=== PATIENT | female | born 1935 | race Caucasian/White ===

== ENCOUNTER 2017-04-01 13:42 | Inpatient (IN) | payer OTHER ==
--- NOTE | 2017-04-01 14:16 | PDOC ---
Attending Attestation - Resident Resident Name: Luis Wall - ED Attending Attestation I have performed the following: I have examined & evaluated the patient, The case was reviewed & discussed with the resident, I agree w/resident's findings & plan, Exceptions are as noted - HPI HPI: 04/01/17 14:15 Frequent Falls - Physicial Exam PE: 04/01/17 14:15 VSS NAD Non Toxic - Medical Decision Making 04/01/17 14:[address] Wall's Assessment and Plan
--- NOTE | 2017-04-01 14:28 | PDOC ---
History of Present Illness - General Chief Complaint: Injury Stated Complaint: PCP SENT FOR ADMIN Time Seen by Provider: 04/01/17 14:09 - History of Present Illness Initial Comments: 82 year old female with PMH of hypothyroidism, smoking disorder, and CHF (s/p stent 2 years prior for suspected [place]) presenting with repeat falls, and altered mental status over the past few months. Patient is not an excellent historian so her son at bedside was complementing the interview. According to him she has fallen 5 times in the last 3-4 months despite her use of a walker. She hit her head two weeks prior during one of the falls but did not seek attention. She did not lose consciousness during that fall. She describes the falls as "my legs giving out" which is corroborated by her son who witnessed one of the events. The son claims that she also has had difficulty keep track of time and with short term memory. Her memory issues are worsened at night. She lives at home alone and has had trouble with her ADLs. She is not on blood thinners. She has also had decreased food intake over the past few months although she has only lost a few pounds. She was seen by her PCP Dr. Mitchell earlier today and then sent to the ED for admission for altered mental status. Denies fevers, chills, nausea, vomiting, diarrhea, constipation, urinary symptoms, visual changes, headaches, presyncopal sensation, or palpitations. Her PCP is Dr. Mitchell. 04/01/17 14:28 Past History - Past Medical History Allergies/Adverse Reactions: Allergies Allergy/AdvReac Type Severity Reaction Status Date / Time pineapple [Pineapple] Allergy Severe Swelling Verified 04/01/17 13:45 adhesive tape Allergy Mild Rash Verified 04/01/17 13:45 Home Medications: Ambulatory Orders Aspirin Coated [Ecotrin -] 81 mg PO DAILY #30 tablet.ec 01/03/14 Carvedilol [Coreg -] 3.125 mg PO BID #60 tablet 01/03/14 Furosemide [Lasix -] 40 mg PO DAILY #30 tablet 01/03/14 Levofloxacin [Levaquin -] 250 mg PO DAILY #3 tablet 01/03/14 Levothyroxine [Synthroid -] 100 mcg PO DAILY@0700 #30 tablet 01/03/14 Lisinopril [Prinivil] 2.5 mg PO DAILY #30 tablet 01/03/14 Anemia: No Asthma: Yes Cancer: No Cardiac Disorders: Yes COPD: Yes CHF: Yes Diabetes: Yes Disorders: No HTN: Yes Hypercholesterolemia: Yes Liver Disease: No Suicide Attempt (Hx): No Thyroid Disease: Yes (hypothyroid) - Surgical History Abdominal Surgery: Yes Appendectomy: Yes Cholecystectomy: Yes Neurologic Surgery: Yes (HERNIATED DISC) - Psycho/Social/Smoking Cessation Hx Anxiety: No Suicidal Ideation: No Smoking Status: Yes Smoking History: Former smoker Have you smoked in the past 12 months: Yes Number of Cigarettes Smoked Daily: 20 If you are a former smoker, when did you quit?: 01/2017 Information on smoking cessation initiated: No 'Breaking Loose' booklet given: 12/10/11 Hx Alcohol Use: No Drug/Substance Use Hx: No Substance Use Type: None Hx Substance Use Treatment: No Review of Systems - Review of Systems Constitutional: No: Chills, Diaphoresis, Fever HEENTM: No: Blurred Vision, Tearing, Recent change in vision Respiratory: No: Cough, Shortness of Breath Cardiac (ROS): No: Chest Pain, Edema, Palpitations, Syncope ABD/GI: No: Constipated, Diarrhea, Nausea, Vomiting : No: Burning, Dysuria, Discharge Integumentary: Yes: Lesions. No: Bruising Neurological: Yes: Unsteady Gait. No: Headache, Numbness, Paresthesia *Physical Exam - Vital Signs Last Vital Signs Temp Pulse Resp BP Pulse Ox 97.6 F 81 18 145/70 98 04/01/17 13:45 04/01/17 13:45 04/01/17 13:45 04/01/17 13:45 04/01/17 13:45 - Physical Exam General Appearance: Yes: Appropriately Dressed, Thin. No: Apparent Distress HEENT: positive: EOMI, BETO, Normal ENT Inspection, Normal Voice Neck: positive: Trachea midline, Normal Thyroid. negative: Tender Respiratory/Chest: positive: Lungs Clear, Normal Breath Sounds. negative: Chest Tender, Respiratory Distress, Accessory Muscle Use Cardiovascular: positive: Regular Rhythm, Regular Rate, S1, S2. negative: Edema , JVD, Murmur Gastrointestinal/Abdominal: positive: Normal Bowel Sounds, Flat, Soft. negative : Tender Extremity: positive: Normal Range of Motion Integumentary: positive: Normal Color, Dry, Warm Neurologic: positive: Alert, Normal Mood/Affect, Other (Steady gait but slow with assistance of walker.). negative: Fully Oriented, Motor Strength 5/5 (No focal deficits but generally weak 3/5 muscle strength.) ED Treatment Course - LABORATORY CBC & Chemistry Diagram: 04/01/17 14:56 04/01/17 14:56 Medical Decision Making - Medical Decision Making 82 year old female with PMH of [place] s/p stent placement on ASA presenting with falls and and increasing memory loss and confusion over the past few months. She was sent here by Dr. Mitchell for an admission and further workup of her falls. This is most likely vascular dementia vs. UTI vs. PNA. More likely a vascualr dementia given the chronicity of the mental status changes. Will order basic labs, head CT, CXR, and UA. 04/01/17 15:38 Ct head showing microvascular changes but per Dr. Salter, patient needs further neurology workup as well as macrocytic pancytopenia with new moderate thrombocytopenia. UA pending. CMP WNL. Admitted to Dr. Vitale per admiting team @ 18:37. 04/01/17 18:34 04/01/17 18:37 *DC/Admit/Observation/Transfer Diagnosis at time of Disposition: Altered mental status, Pancytopenia - Discharge Dispostion Condition at time of disposition: Stable Admit: Yes
[2017-04-01 15:04] LABS: BASOPHIL 0.2 % (0-2.0); EOSINOPHIL 3.1 % (0-4.5); MCH 37.8 pg (25.7-33.7); MCHC 36.8 g/dl (32.0-36.0); MEAN CELL VOLUME 102.8 fl (80-96); MEAN PLT VOLUME 7.1 fl (7.5-11.1); NEUTROPHILS 31.3 % (42.8-82.8); PLATELET COUNT 109 K/MM3 (134-434); RDW 14.9 % (11.6-15.6); WHITE BLOOD COUNT 2.6 K/mm3 (4.0-10.0)
[2017-04-01 15:24] LABS: INR 1.05 (0.82-1.09); PROTHROMBIN TIME (PATIENT) 11.6 SEC (9.98-11.88)
[2017-04-01 15:32] LABS: ALBUMIN 3.6 g/dl (3.4-5.0); ANION GAP 7 (8-16); CALCIUM 9.2 mg/dL (8.5-10.1); CO2 28 mmol/L (21-32); CREATININE 1.2 mg/dL (0.55-1.02); GLUCOSE,RANDOM 95 mg/dL (74-106); MAGNESIUM 2.1 mg/dL (1.8-2.4); PHOSPHOROUS 3.4 mg/dL (2.5-4.9); SGOT/AST 13 U/L (15-37); SGPT/ALT 15 U/L (12-78)
[2017-04-01 15:34] LABS: ALK PHOS 70 U/L (45-117); BILIRUBIN,TOTAL 0.5 mg/dL (0.2-1.0); TOT PROT 6.6 g/dl (6.4-8.2)
[2017-04-01 16:15] LABS: THYROID STIMULATING HORMONE 0.16 uIU/ml (0.358-3.74)
[2017-04-01 18:41] LABS: URINE APPEARANCE SLCLOUDY; URINE BILIRUBIN NEGATIVE (NEGATIVE); URINE BLOOD NEGATIVE (NEGATIVE); URINE COLOR LTYELLOW; URINE GLUCOSE (UA) NEGATIVE (NEGATIVE); URINE KETONE NEGATIVE (NEGATIVE); URINE LEUK ESTERASE TRACE (NEGATIVE); URINE NITRITE NEGATIVE (NEGATIVE); URINE PROTEIN NEGATIVE (NEGATIVE); URINE UROBILINOGEN NEGATIVE mg/dL (0.2-1.0)
[2017-04-01 18:48] LABS: URINE MUCUS RARE; URINE RBC 1 /hpf (0-3); URINE WBC 32 /hpf (3-5)
--- NOTE | 2017-04-01 19:16 | HP ---
CHIEF COMPLAINT: AMS, frequent falls PCP: Dr. Mitchell HISTORY OF PRESENT ILLNESS: 82 y/o F w/PMH of hypothyroidism, HTN, CAD (s/p stent placement 2 years ago), former smoker (quit 2 mo ago) presented to the ER from PCP's office for AMS and frequent falls. Pt is a poor historian. History obtained from son at bedside Pt has had 4-5 falls over the last 2-3 months with last fall being this past Wednesday (5 days ago). Pt states it feels as though her legs become weak and she just falls and denies any LOC. Son witnessed last fall and states it looked like her legs gave away and she fell. She hit her head 2 weeks ago on a fall but did not seek medical attention. Pt has some pain at R knee currently from latest fall. According to son the pt was at her baseline 6 months ago and feels as though she has been declining over the last 6 months which began with visual hallucinations. At her baseline pt is AAOX2 as per son and currently pt is AAOx1 (oriented to self). Pt is incontinent and uses diaper to urinate which is changed once in the morning and once at night. Son manages her medications and gives them to her as prescribed. Pt denies any CP, palpitations, light- headedness or dizziness before any of the falls, cough, SOB, abd pain, diarrhea , dysuria, fevers, chills, N/V, leg swelling, sick contacts, visual changes. Pt has poor appetite at baseline. Pt has lost 3 pounds over last 3 months according to son. Pt uses a walker to ambulate at baseline. ER course was notable for: (1) Head CT, CXR, UA (2) (3) PAST MEDICAL HISTORY:hypothyroidism, HTN, CHF, CAD (s/p stent placement 2 years ago) Social History: Smoking: smoked 1 ppd for approximately 65 years. Family History: not known Allergies pineapple [Pineapple] Allergy (Severe, Verified 04/01/17 13:45) Swelling adhesive tape Allergy (Mild, Verified 04/01/17 13:45) Rash HOME MEDICATIONS: Home Medications Medication Instructions Recorded Aspirin Coated [Ecotrin -] 81 mg PO DAILY #30 tablet.ec 01/03/14 Carvedilol [Coreg -] 3.125 mg PO BID #60 tablet 01/03/14 Furosemide [Lasix -] 40 mg PO DAILY #30 tablet 01/03/14 Levofloxacin [Levaquin -] 250 mg PO DAILY #3 tablet 01/03/14 Levothyroxine [Synthroid -] 100 mcg PO DAILY@0700 #30 tablet 01/03/14 Lisinopril [Prinivil] 2.5 mg PO DAILY #30 tablet 01/03/14 REVIEW OF SYSTEMS CONSTITUTIONAL: Absent: fever, chills HEENT: Absent: rhinorrhea, visual changes CARDIOVASCULAR: Absent: chest pain, syncope, palpitations, irregular heart rate, lightheadedness , peripheral edema RESPIRATORY: Absent: cough, shortness of breath GASTROINTESTINAL: Absent: abdominal pain, abdominal distension, nausea, vomiting, diarrhea GENITOURINARY: Absent: dysuria, frequency MUSCULOSKELETAL: +R knee pain NEUROLOGIC: +AMS, frequent falls Absent: headache, dizziness Vital Signs Temperature 97.6 F 04/01/17 13:45 Pulse Rate 81 04/01/17 13:45 Respiratory Rate 18 04/01/17 13:45 Blood Pressure 145/70 04/01/17 13:45 O2 Sat by Pulse Oximetry (%) 98 04/01/17 13:45 PHYSICAL EXAMINATION GENERAL: Awake, alert, and oriented to self only. HEAD: No tenderness to palpation. EYES: extraocular movements intact EARS, NOSE, THROAT: Ears normal, nares patent, oropharynx clear without exudates. Moist mucous membranes. NECK: Normal range of motion, supple without lymphadenopathy LUNGS: Breath sounds equal, clear to auscultation bilaterally. No wheezes, and no crackles. No accessory muscle use. HEART: Regular rate and rhythm, normal S1 and S2 without murmur, rub or gallop. ABDOMEN: Soft, nontender, not distended, normoactive bowel sounds, no guarding, no rebound, no masses. MUSCULOSKELETAL: No CVA tenderness. 4/5 B/L UE and LE strength. LOWER EXTREMITIES: warm, well-perfused. No calf tenderness. No peripheral edema. NEUROLOGICAL: Normal speech. Gait not observed. PSYCHIATRIC: Appropriate mood and affect. SKIN: Warm, dry CBCD WBC 2.6 K/mm3 (4.0-10.0) L D 04/01/17 14:56 RBC 2.43 M/mm3 (3.60-5.2) L D 04/01/17 14:56 Hgb 9.2 GM/dL (10.7-15.3) L D 04/01/17 14:56 Hct 25.0 % (32.4-45.2) L D 04/01/17 14:56 MCV 102.8 fl (80-96) H 04/01/17 14:56 MCHC 36.8 g/dl (32.0-36.0) H 04/01/17 14:56 RDW 14.9 % (11.6-15.6) 04/01/17 14:56 Plt Count 109 K/MM3 (134-434) L D 04/01/17 14:56 MPV 7.1 fl (7.5-11.1) L D 04/01/17 14:56 CMP Sodium 140 mmol/L (136-145) 04/01/17 14:56 Potassium 4.1 mmol/L (3.5-5.1) 04/01/17 14:56 Chloride 105 mmol/L (98-107) 04/01/17 14:56 Carbon Dioxide 28 mmol/L (21-32) 04/01/17 14:56 Anion Gap 7 (8-16) L 04/01/17 14:56 BUN 30 mg/dL (7-18) H 04/01/17 14:56 Creatinine 1.2 mg/dL (0.55-1.02) H 04/01/17 14:56 Creat Clearance w eGFR 43.23 (>60) 04/01/17 14:56 Random Glucose 95 mg/dL (74-106) 04/01/17 14:56 Calcium 9.2 mg/dL (8.5-10.1) 04/01/17 14:56 Total Bilirubin 0.5 mg/dL (0.2-1.0) D 04/01/17 14:56 AST 13 U/L (15-37) L 04/01/17 14:56 ALT 15 U/L (12-78) 04/01/17 14:56 Alkaline Phosphatase 70 U/L (45-117) D 04/01/17 14:56 Total Protein 6.6 g/dl (6.4-8.2) 04/01/17 14:56 Albumin 3.6 g/dl (3.4-5.0) 04/01/17 14:56 Laboratory Tests 04/01/17 14:56 TSH 0.16 L Urine Test Results Urine Color Ltyellow 04/01/17 18:15 Urine Appearance Slcloudy 04/01/17 18:15 Urine pH 5.0 (5.0-8.0) 04/01/17 18:15 Urine Protein Negative (NEGATIVE) 04/01/17 18:15 Urine Glucose (UA) Negative (NEGATIVE) 04/01/17 18:15 Urine Ketones Negative (NEGATIVE) 04/01/17 18:15 Urine Blood Negative (NEGATIVE) 04/01/17 18:15 Urine Nitrite Negative (NEGATIVE) 04/01/17 18:15 Urine Bilirubin Negative (NEGATIVE) 04/01/17 18:15 Ur Leukocyte Esterase Trace (NEGATIVE) 04/01/17 18:15 Urine RBC 1 /hpf (0-3) 04/01/17 18:15 Urine WBC 32 /hpf (3-5) 04/01/17 18:15 Ur Epithelial Cells Rare /hpf (FEW) 04/01/17 18:15 Urine Mucus Rare 04/01/17 18:15 Imaging: Head CT: Impression: Ventricular dilatation is noted as discussed above probably due to central atrophy and less likely on the basis of normal pressure hydrocephalus. Correlate clinically. Mild periventricular white matter hypodensity is seen probably due to mild microvascular ischemic gliosis and less likely interstitial edema due to obstructive ventricular dilatation. CXR: pending official read. Active Medications Aspirin (Ecotrin -) 81 mg PO DAILY [facility] Carvedilol (Coreg -) 3.125 mg PO BID [facility] Furosemide (Lasix -) 40 mg PO DAILY [facility] Levothyroxine Sodium (Synthroid -) 100 mcg PO DAILY@0700 [facility] Lisinopril (Prinivil) 2.5 mg PO DAILY [facility] ASSESSMENT/PLAN: 82 y/o F w/PMH of hypothyroidism, HTN, CAD (s/p stent placement 2 years ago), former smoker (quit 2 mo ago) presents to ER from PCP's office with frequent falls and AMS. -AMS and frequent falls secondary to vascular dementia vs UTI -UA with 32 wbc, trace LE, vitals wnl, no dysuria or frequency -f/u UCx, UCx in past with strep viridans -will start on ceftriaxone 1 g iv qd -pt incontinent with infrequent diaper changes -Neuro consulted -may need MRI brain -Pancytopenia -WBC 2.6, Hgb 9.2, Plts: 109 -Will monitor -check folate, b12 -Hypothyroidism -TSH low at 0.16 -check free t3, t4 -continued home synthroid at 100mcg qd -may need titrating, f/u free t3, free t4 -CAD -c/w ASA 81 mg po qd -CHF -c/w carvedilol 3.125 mg po bid, lasix 40 mg po qd, lisinopril 2.5 mg po qd -HTN -c/w lisinopril 2.5 mg po qd, carvedilol 3.125 mg po bid -DVT ppx -SCDs, consider heparin if necessary -FEN -No fluids at this time -monitor lytes -Regular diet -Dispo: -Will need PT eval -need placement discussion with son s/p hospitalization -Admit to m/s Visit type - Emergency Visit Emergency Visit: Yes ED Registration Date: 04/01/17 Care time: The patient presented to the Emergency Department on the above date and was hospitalized for further evaluation of their emergent condition. - New Patient This patient is new to me today: Yes Date on this admission: 04/01/17 - Critical Care Critical Care patient: No
--- NOTE | 2017-04-01 21:16 | PN ---
Teaching Attending Note Name of Resident: Fidel Carter ATTENDING PHYSICIAN STATEMENT I saw and evaluated the patient. I reviewed the resident's note and discussed the case with the resident. I agree with the resident's findings and plan as documented. SUBJECTIVE: 82 year old female with history of dementia brought by son due to increasing frequency of falls and declining cognitive status. Last fell 5 days ago . No LOC. C/o right knee pain at that time. Very poor historian. Poor appetite. PMH Hypothyroidism HTN CAD Dementia Past Sx Hx cardiac cath Social Hx good social support lives with son ambulates with walker former smoker 30p/y Home Medication List Medication Instructions Recorded Confirmed Type Atorvastatin Ca [Lipitor] 10 mg PO HS 04/01/17 04/01/17 History Clopidogrel Bisulfate [Plavix -] 75 mg PO DAILY 04/01/17 04/01/17 History Folic Acid 1 mg PO DAILY 04/01/17 04/01/17 History Active Medications Generic Name Dose Route Start Last Admin Trade Name Freq PRN Reason Stop Dose Admin Aspirin 81 mg 04/02/17 10:00 Ecotrin - PO DAILY [facility] Carvedilol 3.125 mg 04/01/17 22:00 Coreg - PO BID [facility] Furosemide 40 mg 04/02/17 10:00 Lasix - PO DAILY [facility] Ceftriaxone Sodium 1 gm/ 50 mls @ 100 mls/hr 04/01/17 20:00 Dextrose IVPB DAILY [facility] Levothyroxine Sodium 100 mcg 04/02/17 07:00 Synthroid - PO DAILY@0700 [facility] Lisinopril 2.5 mg 04/02/17 10:00 Prinivil PO DAILY JOC[facility]NE OBJECTIVE: Vital Signs Temperature 98.1 F 04/01/17 19:45 Pulse Rate 70 04/01/17 19:45 Respiratory Rate 18 04/01/17 19:45 Blood Pressure 138/72 04/01/17 19:45 O2 Sat by Pulse Oximetry (%) 99 04/01/17 19:45 EYES: extraocular movements intact EARS, NOSE, THROAT: Ears normal, nares patent, oropharynx clear without exudates. Moist mucous membranes. NECK: Normal range of motion, supple without lymphadenopathy LUNGS: Breath sounds equal, clear to auscultation bilaterally. No wheezes, and no crackles. No accessory muscle use. HEART: Regular rate and rhythm, normal S1 and S2 without murmur, rub or gallop. ABDOMEN: Soft, nontender, not distended, normoactive bowel sounds, no guarding, no rebound, no masses. MUSCULOSKELETAL: No CVA tenderness. 4/5 B/L UE and LE strength. LOWER EXTREMITIES: warm, well-perfused. No calf tenderness. No peripheral edema. NEUROLOGICAL: Normal speech. Gait not observed. CBC, BMP 04/01/17 14:56 04/01/17 14:[address]: Impression: Ventricular dilatation is noted as discussed above probably due to central atrophy and less likely on the basis of normal pressure hydrocephalus. Correlate clinically. Mild periventricular white matter hypodensity is seen probably due to mild microvascular ischemic gliosis and less likely interstitial edema due to obstructive ventricular dilatation. ASSESSMENT 1. 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 Advanced dementia - worsening 3. Anemia/pancytopenia - macrocytic - worsening, likely b12/folate deff ,overt bleeding can not be excluded 4. HTN - stable 5. CAD - stable , no chest pain 6. Asymptomatic bacteriuria and history of ua incontinence AND PLAN: 1. Neurology evaluation 2. PT / OT 3. Occult blood stool, monitor CBC, B12 level 4. Repeat UA Observation
[2017-04-01] MEDS ORDERED: DEXTROSE 5%-WATER - 50 ML IVPB ONE (22:39)
[2017-04-01] MEDS ORDERED: cefTRIAXone SODIUM 1 GM VIAL ONE (22:39)
[2017-04-01] MEDS: CEFTRIAXONE 1 GM in DEXTROSE 5%-WATER - 50 ML IVPB SCH (22:47)
[2017-04-01] MEDS: CARVEDILOL 3.125 MG TABLET (FP) PO SCH (22:48)
[2017-04-02] MEDS ORDERED: LEVOTHYROXINE NA 100 MCG TABLET (FP) PO SCH (07:00)
[2017-04-02 07:21] LABS: BASOPHIL 0.3 % (0-2.0); MCH 36.4 pg (25.7-33.7); MCHC 35.6 g/dl (32.0-36.0); MEAN CELL VOLUME 102.3 fl (80-96); MEAN PLT VOLUME 7.1 fl (7.5-11.1); NEUTROPHILS 34.1 % (42.8-82.8); PLATELET COUNT 107 K/MM3 (134-434); RDW 14.8 % (11.6-15.6); WHITE BLOOD COUNT 2.2 K/mm3 (4.0-10.0)
[2017-04-02 07:58] LABS: ALBUMIN 3.7 g/dl (3.4-5.0); ALK PHOS 76 U/L (45-117); ANION GAP 8 (8-16); BILIRUBIN,TOTAL 0.7 mg/dL (0.2-1.0); CALCIUM 8.9 mg/dL (8.5-10.1); CO2 27 mmol/L (21-32); CREATININE 1.2 mg/dL (0.55-1.02); GLUCOSE,RANDOM 95 mg/dL (74-106); SGOT/AST 15 U/L (15-37); SGPT/ALT 16 U/L (12-78); TOT PROT 6.8 g/dl (6.4-8.2)
--- NOTE | 2017-04-02 09:02 | EKG ---
Test Reason : Blood Pressure : / mmHG Vent. Rate : 065 BPM Atrial Rate : 065 BPM P-R Int : 146 ms QRS Dur : 080 ms QT Int : 408 ms P-R-T Axes : 059 034 049 degrees QTc Int : 424 ms NORMAL SINUS RHYTHM CANNOT RULE OUT SEPTAL INFARCT , AGE UNDETERMINED NONSPECIFIC ST ABNORMALITY Confirmed by MEENAKSHI MYESR MD ([id number]) on 04/02/2017 9:01:41 AM Referred By: Confirmed By:MEENAKSHI MYERS MD
[2017-04-02] MEDS ORDERED: cefTRIAXone SODIUM 1 GM VIAL ONE (09:16)
[2017-04-02] MEDS ORDERED: DEXTROSE 5%-WATER - 50 ML IVPB ONE (09:16)
[2017-04-02 09:19] LABS: FREE T4 1.68 ng/dl (0.76-1.46)
[2017-04-02] MEDS: ASPIRIN COATED 81 MG TABLET.EC PO SCH (10:17)
[2017-04-02] MEDS: LISINOPRIL 5 MG TABLET (FP) PO SCH (10:17)
[2017-04-02] MEDS: FUROSEMIDE 40 MG TABLET (FP) PO SCH (10:17)
[2017-04-02] MEDS: CARVEDILOL 3.125 MG TABLET (FP) PO SCH ×2 (10:17→22:50)
[2017-04-02] MEDS: CEFTRIAXONE 1 GM in DEXTROSE 5%-WATER - 50 ML IVPB SCH (10:18)
[2017-04-02] MEDS: HEPARIN NA (PORCINE) 5,000 UNITS/ML 1ML VIAL SQ SCH ×2 (14:07→22:53)
--- NOTE | 2017-04-02 14:38 | PN ---
Progress Note, Physician Chief Complaint: Unable to obtain secondary to dementia - Current Medication List Current Medications: Active Medications Aspirin (Ecotrin -) 81 mg PO DAILY [facility] Last Admin: 04/02/17 10:17 Dose: 81 mg Carvedilol (Coreg -) 3.125 mg PO BID [facility] Last Admin: 04/02/17 10:17 Dose: 3.125 mg Furosemide (Lasix -) 40 mg PO DAILY [facility] Last Admin: 04/02/17 10:17 Dose: 40 mg Heparin Sodium (Porcine) (Heparin -) 5,000 unit SQ TID [facility] Last Admin: 04/02/17 14:07 Dose: 5,000 unit Ceftriaxone Sodium 1 gm/ (Dextrose) 50 mls @ 100 mls/hr IVPB DAILY [facility] Last Admin: 04/02/17 10:18 Dose: 100 mls/hr Sodium Chloride (Normal Saline -) 1,000 mls @ 50 mls/hr IV ASDIR [facility] Stop: 04/03/17 14:31 Levothyroxine Sodium (Synthroid -) 100 mcg PO DAILY@0700 [facility] Last Admin: 04/02/17 06:50 Dose: 100 mcg Lisinopril (Prinivil) 2.5 mg PO DAILY [facility] Last Admin: 04/02/17 10:17 Dose: 2.5 mg - Objective Vital Signs: Vital Signs Temperature 37.4 C 04/02/17 10:00 Pulse Rate 95 H 04/02/17 10:00 Respiratory Rate 20 04/02/17 10:00 Blood Pressure 163/90 04/02/17 10:00 O2 Sat by Pulse Oximetry (%) 99 04/01/17 22:00 Constitutional: Yes: No Distress, Calm, Thin Cardiovascular: Yes: Regular Rate and Rhythm. No: Gallop, Murmur, Rub Respiratory: Yes: Regular, CTA Bilaterally. No: Rales, Rhonchi, Wheezes Gastrointestinal: Yes: Normal Bowel Sounds, Soft. No: Distention, Tenderness Extremities: Yes: WNL Edema: No Labs: CBC, BMP 04/02/17 06:15 04/02/17 06:15 INR, PTT INR 1.05 (0.82-1.09) 04/01/17 14:56 Problem List - Problems (1) UTI (urinary tract infection) Assessment/Plan: -follow up urine cultures -continue rocephin 1gm IV daily Code(s): N39.0 - URINARY TRACT INFECTION, SITE NOT SPECIFIED (2) Dementia Assessment/Plan: -per history appears to be worsening -neurology consulted and will follow up recommendations -continue treatment for UTI, unsure of baseline -PT consult Code(s): F03.90 - UNSPECIFIED DEMENTIA WITHOUT BEHAVIORAL DISTURBANCE (3) Pancytopenia Assessment/Plan: -monitor Code(s): D61.818 - OTHER PANCYTOPENIA (4) CHF (congestive heart failure) Assessment/Plan: -not in exacerbation -continue lasix Code(s): I50.9 - HEART FAILURE, UNSPECIFIED Qualifiers: Congestive heart failure type: unspecified congestive heart failure type Congestive heart failure chronicity: chronic Qualified Code(s): I50.9 - Heart failure, unspecified (5) HTN (hypertension) Assessment/Plan: -continue coreg and lisinopril Code(s): I10 - ESSENTIAL (PRIMARY) HYPERTENSION (6) Hypothyroidism Assessment/Plan: -TSH low and FT4 high -decrease synthroid to 88mcg Code(s): E03.9 - HYPOTHYROIDISM, UNSPECIFIED
[2017-04-02] MEDS: SODIUM CHLORIDE 1,000 ML IV SCH (15:19)
[2017-04-03] MEDS: LEVOTHYROXINE NA 88 MCG TABLET (FP) PO SCH (06:14)
[2017-04-03] MEDS: HEPARIN NA (PORCINE) 5,000 UNITS/ML 1ML VIAL SQ SCH ×3 (06:14→23:04)
[2017-04-03 09:16] LABS: ANION GAP 12 (8-16); CALCIUM 8.9 mg/dL (8.5-10.1); CO2 25 mmol/L (21-32); CREATININE 1.3 mg/dL (0.55-1.02); GLUCOSE,RANDOM 111 mg/dL (74-106)
[2017-04-03] MEDS ORDERED: DEXTROSE 5%-WATER - 50 ML IVPB ONE (09:22)
[2017-04-03] MEDS ORDERED: cefTRIAXone SODIUM 1 GM VIAL ONE (09:22)
[2017-04-03] MEDS: CEFTRIAXONE 1 GM in DEXTROSE 5%-WATER - 50 ML IVPB SCH (09:29)
[2017-04-03] MEDS: ASPIRIN COATED 81 MG TABLET.EC PO SCH (09:30)
[2017-04-03] MEDS: CARVEDILOL 3.125 MG TABLET (FP) PO SCH ×3 (09:30→23:04)
[2017-04-03 09:41] LABS: BASOPHIL 0.3 % (0-2.0); MCH 36.7 pg (25.7-33.7); MCHC 35.8 g/dl (32.0-36.0); MEAN CELL VOLUME 102.6 fl (80-96); MEAN PLT VOLUME 7.5 fl (7.5-11.1); NEUTROPHILS 38.2 % (42.8-82.8); PLATELET COUNT 120 K/MM3 (134-434); RDW 14.8 % (11.6-15.6); WHITE BLOOD COUNT 2.9 K/mm3 (4.0-10.0)
[2017-04-03] MEDS: FUROSEMIDE 40 MG TABLET (FP) PO SCH (12:24)
[2017-04-03] MEDS: LISINOPRIL 5 MG TABLET (FP) PO SCH (12:24)
[2017-04-03] MEDS: ACETAMINOPHEN 325 MG TABLET (FP) PO PRN (12:56)
[2017-04-03] MEDS: SODIUM CHLORIDE 1,000 ML IV SCH ×2 (12:59→14:41)
--- NOTE | 2017-04-03 13:52 | PN ---
Physical Exam: SUBJECTIVE: Patient seen and examined in hallway in eating lunch. She nods her head when you ask if she is tried and in pain OBJECTIVE: Vital Signs Period Temp Pulse Resp BP Sys/Damon Pulse Ox Last 24 Hr 97.4 F-98.5 F 67-95 16-20 91-147/39-86 98 PE Gen: thin Neuro: awake, alert, cn 2-12intact confused Pulm: CTAB CV: s1 s2 rrr no mrg Abd: s nt nd + bs Ext: warm, le tenderness to palpation Laboratory Results - last 24 hr 04/02/17 04/03/17 04/03/17 06:15 07:35 07:35 WBC 2.9 L D RBC 2.87 L Hgb 10.5 L Hct 29.4 L MCV 102.6 H MCH 36.7 H MCHC 35.8 RDW 14.8 Plt Count 120 L MPV 7.5 Neutrophils % 38.2 L Lymphocytes % 54.2 H Monocytes % 5.3 Eosinophils % 2.0 Basophils % 0.3 Sodium 140 Potassium 3.8 Chloride 103 Carbon Dioxide 25 Anion Gap 12 BUN 24 H Creatinine 1.3 H Random Glucose 111 H Calcium 8.9 Free T3 2.4 Active Medications Generic Name Dose Route Start Last Admin Trade Name Freq PRN Reason Stop Dose Admin Acetaminophen 650 mg 04/03/17 12:32 04/03/17 12:56 Tylenol - PO 650 mg Q4H PRN Administration FEVER OR PAIN Aspirin 81 mg 04/02/17 10:00 04/03/17 09:30 Ecotrin - PO 81 mg DAILY [facility] Administration Carvedilol 3.125 mg 04/03/17 12:32 Coreg - PO BID [facility]OC[facility]NE Heparin Sodium (Porcine) 5,000 unit 04/02/17 14:00 04/03/17 06:14 Heparin - SQ 5,000 unit TID [facility]OC[facility]NE Administration Ceftriaxone Sodium 1 gm/ 50 mls @ 100 mls/hr 04/01/17 20:00 04/03/17 09:29 Dextrose IVPB 100 mls/hr DAILY [facility] Administration Sodium Chloride 1,000 mls @ 50 mls/hr 04/02/17 14:30 04/03/17 12:59 Normal Saline - IV 04/03/17 14:31 50 mls/hr ASDIR JOCELYNE Administration Levothyroxine Sodium 88 mcg 04/03/17 07:00 04/03/17 06:14 Synthroid - PO 88 mcg DAILY@0700 [facility] Administration Lisinopril 2.5 mg 04/02/17 10:00 04/03/17 12:24 Prinivil PO Not Given DAILY [facility] Microbiology 04/01/17 18:15 Urine Culture - Final Urine - Urine Clean Catch Alpha Hemolytic Streptococcus Assessment: 82 year old female w/PMH of hypothyroidism, HTN, CAD (s/p stent placement 2 years ago), former smoker (quit 2 mo ago) presented to the ER from PCP's office for AMS and frequent falls. Plan: 1. UTI - Urine cx with normal joan - Stop abx 2. Hypotension - s/p 1L - Hold lasix and lisinopril - Monitor BP 3. TAMIE - High side of baseline - Possible from hypotension - Cont gentle IVF - Hold diuretics rona 4. Dementia -per history appears to be worsening - Neuro eval pending - PT ordered 5. Pancytopenia - Monitor 6. CHF, systolic - Not in exacerbation - Hold lasix for hypotension - Continue coreg with hold paramaters 7. HTN -Conntinue coreg a - Hold Lisinopril until Wednesday 8. Hypothyroidism - TSH low and FT4 high - Decrease synthroid to 88mcg Visit type - Emergency Visit Emergency Visit: Yes ED Registration Date: 04/01/17 Care time: The patient presented to the Emergency Department on the above date and was hospitalized for further evaluation of their emergent condition. - New Patient This patient is new to me today: Yes Date on this admission: 04/03/17 - Critical Care Critical Care patient: No
--- NOTE | 2017-04-03 15:09 | CONSULT ---
Consult - text type - Consultation Consultation Note: NEUROLOGY CONSULTATION is greatly appreciated: Events reviewed and discussed with RN and Hospitalist. This 82 yo woman apparently lives with her son. PMH of hypothyroidism, HTN, ASHD s/p stents, COPD (quit smoking 2 months ago). Oncarvedilol, ASA, Lisinopril, L-Thyroxine. Hospitalist relates h/o "progressive dementia" and chart suggests 6 mos of visual hallucinations and few months with multiple falls and urinary incontinence. CT of head (reviewed): Moderately severe, diffuse, cerebral atrophy, hydrocephalus TSH=.16 (L); T4= 1.68 (H): Y51=339 Mild chronic hypothermia Urine WBC=32 but cultures showed "normal joan" and ceftriaxone is being D/C'ed EXAM: Neck rigid on flexion NEURO: Lethargic and difficult to arouse with sternal pressure. Confused. Poor visual fixation. Full roving EOM's. No response to visual threat Gag reduced Moves all fours to pinch. Reduced LE reflexes. Plantars silent. IMP: Probable, B/L cerebral dysfunction (OMS, Chronic features). But unable to fully assess cognition due to lethargy and depressed LOC ( which is NOT attributable to OMS alone). Etiology of hypothermia? SUGGEST: MRI of Brain (C-). Continued surveillance for infection Try thiamine 250 mg in 100 cc NS q 8 hrs x 3 days. First dose stat. If MRI doesn't reveal a contraindication Patient may benefit from LP to exclude unusual causes of subacute deterioration such as a chronic gram - meningitis. ID consultation. Endocrine consultation. Thank you very much, Hugo Adams MD
[2017-04-03] MEDS: THIAMINE HCL 200 MG/2 ML VIAL IVPB SCH (18:10)
[2017-04-04] MEDS ORDERED: PT OWN MED DRAWER 7, Y5N ONE (01:49)
[2017-04-04] MEDS: THIAMINE HCL 200 MG/2 ML VIAL IVPB SCH ×3 (01:59→17:52)
[2017-04-04] MEDS: LEVOTHYROXINE NA 88 MCG TABLET (FP) PO SCH (06:59)
[2017-04-04] MEDS: HEPARIN NA (PORCINE) 5,000 UNITS/ML 1ML VIAL SQ SCH ×3 (06:59→21:44)
[2017-04-04 08:13] LABS: BASOPHIL 0.4 % (0-2.0); EOSINOPHIL 3.1 % (0-4.5); MCH 36.6 pg (25.7-33.7); MEAN CELL VOLUME 101.6 fl (80-96); NEUTROPHILS 30.7 % (42.8-82.8); PLATELET COUNT 97 K/MM3 (134-434); RDW 14.8 % (11.6-15.6)
[2017-04-04 08:41] LABS: URINE APPEARANCE SLCLOUDY; URINE BILIRUBIN NEGATIVE (NEGATIVE); URINE BLOOD 1+ (NEGATIVE); URINE COLOR YELLOW; URINE GLUCOSE (UA) NEGATIVE (NEGATIVE); URINE KETONE TRACE (NEGATIVE); URINE LEUK ESTERASE NEGATIVE (NEGATIVE); URINE NITRITE NEGATIVE (NEGATIVE); URINE PROTEIN NEGATIVE (NEGATIVE); URINE UROBILINOGEN NEGATIVE mg/dL (0.2-1.0)
[2017-04-04 08:43] LABS: URINE BACTERIA RARE /hpf (NONE SEEN); URINE HYALINE CAST 8 /lpf; URINE MUCUS RARE; URINE RBC 2 /hpf (0-3); URINE WBC 11 /hpf (3-5)
[2017-04-04 08:44] LABS: ANION GAP 8 (8-16); CALCIUM 8.7 mg/dL (8.5-10.1); CO2 24 mmol/L (21-32); CREATININE 1.2 mg/dL (0.55-1.02); GLUCOSE,RANDOM 89 mg/dL (74-106)
[2017-04-04] MEDS: CARVEDILOL 3.125 MG TABLET (FP) PO SCH ×2 (09:00→21:44)
[2017-04-04] MEDS: ASPIRIN COATED 81 MG TABLET.EC PO SCH (09:01)
[2017-04-04] MEDS ORDERED: HALOPERIDOL LACTATE 5 MG/ML IM ONE (15:15)
--- NOTE | 2017-04-04 15:47 | CON.ID ---
Consult Consult Specialty:: infectious diseases Reason for Consultation:: confusion - History of Present Illness Chief Complaint: confusion,falls History of Present Illness: 82 y/o F w/PMH of hypothyroidism, HTN, CAD (s/p stent placement 2 years ago), former smoker (quit 2 mo ago) presented to the ER from PCP's office for AMS and frequent falls. Pt is a poor historian. History obtained from son at bedside Pt has had 4-5 falls over the last 2-3 months with last fall being this past Wednesday (5 days ago). Pt states it feels as though her legs become weak and she just falls and denies any LOC. Son witnessed last fall and states it looked like her legs gave away and she fell. She hit her head 2 weeks ago on a fall but did not seek medical attention. Pt has some pain at R knee currently from latest fall. According to son the pt was at her baseline 6 months ago and feels as though she has been declining over the last 6 months which began with visual hallucinations. At her baseline pt is AAOX2 as per son and currently pt is AAOx1 (oriented to self). Pt is incontinent and uses diaper to urinate which is changed once in the morning and once at night. Son manages her medications and gives them to her as prescribed. Pt denies any CP, palpitations, light- headedness or dizziness before any of the falls, cough, SOB, abd pain, diarrhea , dysuria, fevers, chills, N/V, leg swelling, sick contacts, visual changes. Pt has poor appetite at baseline. Pt has lost 3 pounds over last 3 months according to son. Pt uses a walker to ambulate at baseline the above was the hisotry taken from the patients chart patient is aggressive and is awake but completely confused and not history available patient is trying to get out of the bed.It seems patient has dementia but looks like there is something going on which is making the patient behave in this fashion neurology has seen the patient i have seen her reports and urine report - History Source History Provided By: Medical Record Limitations to Obtaining History: Clinical Condition - Past Medical History Cardio/Vascular: Yes: CHF, HTN Pulmonary: Yes: COPD Endocrine: Yes: Hypothyroidism - Alcohol/Substance Use Hx Alcohol Use: No - Smoking History Smoking history: Former smoker Have you smoked in the past 12 months: Yes Aproximately how many cigarettes per day: 20 If you are a former smoker, when did you quit?: 01/2017 Home Medications - Allergies Allergies/Adverse Reactions: Allergies Allergy/AdvReac Type Severity Reaction Status Date / Time pineapple [Pineapple] Allergy Severe Swelling Verified 04/01/17 13:45 adhesive tape Allergy Mild Rash Verified 04/01/17 13:45 - Home Medications Home Medications: Ambulatory Orders Aspirin Coated [Ecotrin -] 81 mg PO DAILY #30 tablet.ec 01/03/14 Carvedilol [Coreg -] 3.125 mg PO BID #60 tablet 01/03/14 Levothyroxine [Synthroid -] 100 mcg PO DAILY@0700 #30 tablet 01/03/14 Lisinopril [Prinivil] 2.5 mg PO DAILY #30 tablet 01/03/14 Atorvastatin Ca [Lipitor] 10 mg PO HS 04/01/17 Clopidogrel Bisulfate [Plavix -] 75 mg PO DAILY 04/01/17 Folic Acid 1 mg PO DAILY 04/01/17 Review of Systems Unable to obtain ROS, reason: unable to obtain Physical Exam Vital Signs: Vital Signs Temperature 99 F 04/04/17 14:51 Pulse Rate 84 04/04/17 14:51 Respiratory Rate 16 04/04/17 14:51 Blood Pressure 120/60 04/04/17 14:51 O2 Sat by Pulse Oximetry (%) 98 04/04/17 09:00 Constitutional: Yes: Well Nourished, Other Eyes: Yes: Conjunctiva Clear Cardiovascular: Yes: Regular Rate and Rhythm Respiratory: Yes: Regular, CTA Bilaterally, On Nasal O2 Gastrointestinal: Yes: Normal Bowel Sounds Musculoskeletal: Yes: WNL Extremities: Yes: WNL Neurological: Yes: Alert, Confusion, Other Psychiatric: Yes: Other Labs: CBC, BMP 04/04/17 06:45 04/04/17 06:45 Imaging - Results Chest X-ray: Report Reviewed, Image Reviewed Cat Scan: Image Reviewed MRI: Report Reviewed, Image Reviewed Assessment/Plan Problem List - Problems (1) UTI (urinary tract infection) Code(s): N39.0 - URINARY TRACT INFECTION, SITE NOT SPECIFIED (2) Dementia Code(s): F03.90 - UNSPECIFIED DEMENTIA WITHOUT BEHAVIORAL DISTURBANCE (3) Pancytopenia Code(s): D61.818 - OTHER PANCYTOPENIA (4) CHF (congestive heart failure) Code(s): I50.9 - HEART FAILURE, UNSPECIFIED Qualifiers: Congestive heart failure type: unspecified congestive heart failure type Congestive heart failure chronicity: chronic Qualified Code(s): I50.9 - Heart failure, unspecified (5) HTN (hypertension) Code(s): I10 - ESSENTIAL (PRIMARY) HYPERTENSION (6) Hypothyroidism Code(s): E03.9 - HYPOTHYROIDISM, UNSPECIFIED after looking at ther picture she has strep in the urine and though it can be normal joan it also can be pathogenic the worrying factor is that her wbc is coming down and so are all other numbers she is pancytopenic and simple cause could be that she was in sepsis or she might have taken some medications which mioght have caused these though there could be number of other causes i am scared to leave her without coverage at this moment i am going to start with ceftriaxone but if patient spikes fever i will escalate the abx plan will start ceftriaxone nutrition rest as per primary will see how numbers play out before deciding if she needs bm biopsy or not as i think this is acute process
--- NOTE | 2017-04-04 16:30 | PN ---
Physical Exam: SUBJECTIVE: Patient seen and examined at bedside. Talking, interacting. OBJECTIVE: Vital Signs Period Temp Pulse Resp BP Sys/Damon Pulse Ox Last 24 Hr 97.7 F-99 F 65-94 16-18 112-146/51-91 95-98 GENERAL: The patient is awake, A&Ox2. Thoughts are confused. HEAD: Normal with no signs of trauma. EYES: PERRL, extraocular movements intact, sclera anicteric, conjunctiva clear. No ptosis. LUNGS: Breath sounds equal, clear to auscultation bilaterally, no wheezes, no crackles, no accessory muscle use. HEART: Regular rate and rhythm, S1, S2 without murmur, rub or gallop. ABDOMEN: Soft, nontender, nondistended, normoactive bowel sounds, no guarding, no rebound, no hepatosplenomegaly, no masses. EXTREMITIES: 2+ pulses, warm, well-perfused, no edema. NEUROLOGICAL: Cranial nerves II through XII grossly intact. Speech is clear. Laboratory Results - last 24 hr 04/04/17 04/04/17 04/04/17 06:45 06:45 08:00 WBC 2.0 L D RBC 2.49 L Hgb 9.1 L D Hct 25.3 L MCV 101.6 H MCH 36.6 H MCHC 36.0 RDW 14.8 Plt Count 97 L MPV 7.0 L Neutrophils % 30.7 L Lymphocytes % 60.4 H Monocytes % 5.4 Eosinophils % 3.1 Basophils % 0.4 Sodium 140 Potassium 3.3 L Chloride 108 H Carbon Dioxide 24 Anion Gap 8 BUN 22 H Creatinine 1.2 H Random Glucose 89 Calcium 8.7 Urine Color Yellow Urine Appearance Slcloudy Urine pH 5.0 Ur Specific [place] 1.020 Urine Protein Negative Urine Glucose (UA) Negative Urine Ketones Trace H Urine Blood 1+ H Urine Nitrite Negative Urine Bilirubin Negative Urine Urobilinogen Negative Ur Leukocyte Esterase Negative Urine RBC 2 Urine WBC 11 Ur Epithelial Cells Rare Urine Bacteria Rare Hyaline Casts 8 Urine Mucus Rare Active Medications Generic Name Dose Route Start Last Admin Trade Name Freq PRN Reason Stop Dose Admin Acetaminophen 650 mg 04/03/17 12:32 04/03/17 12:56 Tylenol - PO 650 mg Q4H PRN Administration FEVER OR PAIN Aspirin 81 mg 04/02/17 10:00 04/04/17 09:01 Ecotrin - PO 81 mg DAILY JOCELYNE Administration Carvedilol 3.125 mg 04/03/17 12:32 04/04/17 09:00 Coreg - PO 3.125 mg BID JOCELYNE Administration Heparin Sodium (Porcine) 5,000 unit 04/02/17 14:00 04/04/17 13:35 Heparin - SQ 5,000 unit TID JOCELYNE Administration Ceftriaxone Sodium 1 gm/ 50 mls @ 100 mls/hr 04/04/17 16:00 Dextrose IVPB DAILY JOCELYNE Levothyroxine Sodium 88 mcg 04/03/17 07:00 04/04/17 06:59 Synthroid - PO 88 mcg DAILY@0700 JOCELYNE Administration Lisinopril 2.5 mg 04/02/17 10:00 04/03/17 12:24 Prinivil PO Not Given DAILY JOCELYNE Thiamine HCl 200 mg 04/03/17 15:45 04/04/17 11:07 Vitamin B1 Injection - IVPB 04/06/17 15:44 200 mg Q8H-IV JOCELYNE Administration ASSESSMENT/PLAN 82 year-old female w/PMH of hypothyroidism, HTN, CAD (s/p stent placement 2 years ago), former smoker (quit 2 mo ago) presented to the ER from PCP's office for AMS and frequent falls. 1. UTI - Urine culture: alpha hemolytic strep - ID has decided to treat with ceftriaxone 2. Hypertension - continue lisinopril, carvedilol 3. TAMIE - Cr 1.2 which is baseline 4. Dementia - yesterday patient was somnolent followed by periods of agitation; today she is calm, interacting, responding to questions although thoughts are confused and rambling -Brain MR negative for acute pathology 5. Pancytopenia - Monitor 6. CHF, systolic - Not in exacerbation - Hold lasix for hypotension - Continue coreg with hold paramaters 7. Hypothyroidism - continue synthroid Visit type - Emergency Visit Emergency Visit: Yes ED Registration Date: 04/01/17 Care time: The patient presented to the Emergency Department on the above date and was hospitalized for further evaluation of their emergent condition. - New Patient This patient is new to me today: Yes Date on this admission: 04/04/17 - Critical Care Critical Care patient: No
[2017-04-04] MEDS ORDERED: DEXTROSE 5%-WATER - 50 ML IVPB ONE (16:49)
[2017-04-04] MEDS ORDERED: cefTRIAXone SODIUM 1 GM VIAL ONE (16:49)
[2017-04-04] MEDS: CEFTRIAXONE 1 GM in DEXTROSE 5%-WATER - 50 ML IVPB SCH (17:12)
[2017-04-04] MEDS ORDERED: POTASSIUM CHLORIDE TABS 20 MEQ TABLET.ER (FP) PO ONE (20:22)
[2017-04-05] MEDS ORDERED: PT OWN MED DRAWER 7, Y5N ONE ×2 (01:39→17:32)
[2017-04-05] MEDS: THIAMINE HCL 200 MG/2 ML VIAL IVPB SCH ×3 (02:05→17:37)
[2017-04-05] MEDS: HEPARIN NA (PORCINE) 5,000 UNITS/ML 1ML VIAL SQ SCH ×3 (06:25→22:22)
[2017-04-05] MEDS: LEVOTHYROXINE NA 88 MCG TABLET (FP) PO SCH (06:25)
[2017-04-05 09:33] LABS: BASOPHIL 0.3 % (0-2.0); EOSINOPHIL 2.6 % (0-4.5); MCH 36.3 pg (25.7-33.7); MCHC 35.5 g/dl (32.0-36.0); MEAN CELL VOLUME 102.3 fl (80-96); NEUTROPHILS 33.1 % (42.8-82.8); PLATELET COUNT 97 K/MM3 (134-434); RDW 15.2 % (11.6-15.6); WHITE BLOOD COUNT 2.1 K/mm3 (4.0-10.0)
[2017-04-05 10:24] LABS: ALBUMIN 3.4 g/dl (3.4-5.0); ANION GAP 10 (8-16); CALCIUM 8.8 mg/dL (8.5-10.1); CO2 24 mmol/L (21-32); GLUCOSE,RANDOM 130 mg/dL (74-106); MAGNESIUM 2.1 mg/dL (1.8-2.4)
[2017-04-05 10:29] LABS: CREATININE 1.2 mg/dL (0.55-1.02); SGOT/AST 18 U/L (15-37); SGPT/ALT 18 U/L (12-78); TOT PROT 6.3 g/dl (6.4-8.2)
[2017-04-05 10:32] LABS: ALK PHOS 71 U/L (45-117); BILIRUBIN,TOTAL 0.5 mg/dL (0.2-1.0)
[2017-04-05] MEDS ORDERED: cefTRIAXone SODIUM 1 GM VIAL ONE (10:57)
[2017-04-05] MEDS ORDERED: DEXTROSE 5%-WATER - 50 ML IVPB ONE (10:58)
[2017-04-05] MEDS: CEFTRIAXONE 1 GM in DEXTROSE 5%-WATER - 50 ML IVPB SCH (11:16)
[2017-04-05] MEDS: ASPIRIN COATED 81 MG TABLET.EC PO SCH (11:17)
[2017-04-05] MEDS: LISINOPRIL 5 MG TABLET (FP) PO SCH (11:17)
[2017-04-05] MEDS: CARVEDILOL 3.125 MG TABLET (FP) PO SCH ×2 (11:17→22:22)
--- NOTE | 2017-04-05 12:52 | PN ---
Progress Note, Physician Chief Complaint: Ms Aguilar says she feels fine today. Denies chest pain, shortness of breath, nausea and vomiting. Mental status much improved today but still with underlying dementia - Current Medication List Current Medications: Active Medications Acetaminophen (Tylenol -) 650 mg PO Q4H PRN PRN Reason: FEVER OR PAIN Last Admin: 04/03/17 12:56 Dose: 650 mg Aspirin (Ecotrin -) 81 mg PO DAILY [facility] Last Admin: 04/05/17 11:17 Dose: 81 mg Carvedilol (Coreg -) 3.125 mg PO BID [facility] Last Admin: 04/05/17 11:17 Dose: 3.125 mg Heparin Sodium (Porcine) (Heparin -) 5,000 unit SQ TID [facility] Last Admin: 04/05/17 06:25 Dose: 5,000 unit Ceftriaxone Sodium 1 gm/ (Dextrose) 50 mls @ 100 mls/hr IVPB DAILY [facility] Last Admin: 04/05/17 11:16 Dose: 100 mls/hr Levothyroxine Sodium (Synthroid -) 88 mcg PO DAILY@0700 [facility] Last Admin: 04/05/17 06:25 Dose: 88 mcg Lisinopril (Prinivil) 2.5 mg PO DAILY [facility] Last Admin: 04/05/17 11:17 Dose: 2.5 mg Thiamine HCl (Vitamin B1 Injection -) 200 mg IVPB Q8H-IV [facility] Stop: 04/06/17 15:44 Last Admin: 04/05/17 11:18 Dose: 200 mg - Objective Vital Signs: Vital Signs Temperature 36.9 C 04/05/17 11:12 Pulse Rate 86 04/05/17 11:12 Respiratory Rate 18 04/05/17 11:12 Blood Pressure 116/61 04/05/17 11:12 O2 Sat by Pulse Oximetry (%) 97 04/04/17 21:00 Constitutional: Yes: Well Nourished, No Distress, Calm Cardiovascular: Yes: Regular Rate and Rhythm. No: Gallop, Murmur, Rub Respiratory: Yes: Regular, CTA Bilaterally. No: Rales, Rhonchi, Wheezes Gastrointestinal: Yes: Normal Bowel Sounds. No: Distention, Tenderness Extremities: Yes: WNL Edema: No Psychiatric: Yes: Alert, Oriented (person and place) Labs: CBC, BMP 04/05/17 08:00 04/05/17 08:00 INR, PTT INR 1.05 (0.82-1.09) 04/01/17 14:56 Problem List - Problems (1) UTI (urinary tract infection) Code(s): N39.0 - URINARY TRACT INFECTION, SITE NOT SPECIFIED (2) Dementia Code(s): F03.90 - UNSPECIFIED DEMENTIA WITHOUT BEHAVIORAL DISTURBANCE (3) Pancytopenia Code(s): D61.818 - OTHER PANCYTOPENIA (4) CHF (congestive heart failure) Code(s): I50.9 - HEART FAILURE, UNSPECIFIED Qualifiers: Congestive heart failure type: unspecified congestive heart failure type Congestive heart failure chronicity: chronic Qualified Code(s): I50.9 - Heart failure, unspecified (5) HTN (hypertension) Code(s): I10 - ESSENTIAL (PRIMARY) HYPERTENSION (6) Hypothyroidism Code(s): E03.9 - HYPOTHYROIDISM, UNSPECIFIED Assessment/Plan (1) UTI (urinary tract infection) Assessment/Plan: -ID following -continue rocephin -cultures evaluated Code(s): N39.0 - URINARY TRACT INFECTION, SITE NOT SPECIFIED (2) Dementia Assessment/Plan: -neurology following -mental status improved from wednesday -suspect had metabolic encephalopathy worsening her underlying dementia -MRI read reviewed, will await further recommendations from neurology Code(s): F03.90 - UNSPECIFIED DEMENTIA WITHOUT BEHAVIORAL DISTURBANCE (3) Pancytopenia Assessment/Plan: -stable -patient has acute process currently -monitor, would hold on bone marrow biopsy at this time -if remains stable, ok for outpatient monitoring Code(s): D61.818 - OTHER PANCYTOPENIA (4) CHF (congestive heart failure) Assessment/Plan: -not in exacerbation -continue lasix Code(s): I50.9 - HEART FAILURE, UNSPECIFIED Qualifiers: Congestive heart failure type: unspecified congestive heart failure type Congestive heart failure chronicity: chronic Qualified Code(s): I50.9 - Heart failure, unspecified (5) HTN (hypertension) Assessment/Plan: -continue coreg and lisinopril Code(s): I10 - ESSENTIAL (PRIMARY) HYPERTENSION (6) Hypothyroidism Assessment/Plan: -TSH low and FT4 high -decreased synthroid to 88mcg Code(s): E03.9 - HYPOTHYROIDISM, UNSPECIFIED
--- NOTE | 2017-04-05 13:47 | PN ---
Progress Note, Physician History of Present Illness: patient feeling much better thinks her family is talking to her from tv pleasant calm - Current Medication List Current Medications: Active Medications Acetaminophen (Tylenol -) 650 mg PO Q4H PRN PRN Reason: FEVER OR PAIN Last Admin: 04/03/17 12:56 Dose: 650 mg Aspirin (Ecotrin -) 81 mg PO DAILY [facility] Last Admin: 04/05/17 11:17 Dose: 81 mg Carvedilol (Coreg -) 3.125 mg PO BID [facility] Last Admin: 04/05/17 11:17 Dose: 3.125 mg Heparin Sodium (Porcine) (Heparin -) 5,000 unit SQ TID [facility] Last Admin: 04/05/17 06:25 Dose: 5,000 unit Ceftriaxone Sodium 1 gm/ (Dextrose) 50 mls @ 100 mls/hr IVPB DAILY [facility] Last Admin: 04/05/17 11:16 Dose: 100 mls/hr Levothyroxine Sodium (Synthroid -) 88 mcg PO DAILY@0700 [facility] Last Admin: 04/05/17 06:25 Dose: 88 mcg Lisinopril (Prinivil) 2.5 mg PO DAILY [facility] Last Admin: 04/05/17 11:17 Dose: 2.5 mg Thiamine HCl (Vitamin B1 Injection -) 200 mg IVPB Q8H-IV [facility] Stop: 04/06/17 15:44 Last Admin: 04/05/17 11:18 Dose: 200 mg - Objective Vital Signs: Vital Signs Temperature 98.4 F 04/05/17 11:12 Pulse Rate 86 04/05/17 11:12 Respiratory Rate 18 04/05/17 11:12 Blood Pressure 116/61 04/05/17 11:12 O2 Sat by Pulse Oximetry (%) 97 04/04/17 21:00 Constitutional: Yes: No Distress, Calm Cardiovascular: Yes: Regular Rate and Rhythm Respiratory: Yes: Regular, CTA Bilaterally Gastrointestinal: Yes: Normal Bowel Sounds, Soft Musculoskeletal: Yes: WNL Extremities: Yes: WNL Neurological: Yes: Alert, Other (dementia) Psychiatric: Yes: Alert, Other (dementia) Labs: CBC, BMP 04/05/17 08:00 04/05/17 08:00 INR, PTT INR 1.05 (0.82-1.09) 04/01/17 14:56 Assessment/Plan Problem List - Problems (1) UTI (urinary tract infection) Code(s): N39.0 - URINARY TRACT INFECTION, SITE NOT SPECIFIED (2) Dementia Code(s): F03.90 - UNSPECIFIED DEMENTIA WITHOUT BEHAVIORAL DISTURBANCE (3) Pancytopenia Code(s): D61.818 - OTHER PANCYTOPENIA (4) CHF (congestive heart failure) Code(s): I50.9 - HEART FAILURE, UNSPECIFIED Qualifiers: Congestive heart failure type: unspecified congestive heart failure type Congestive heart failure chronicity: chronic Qualified Code(s): I50.9 - Heart failure, unspecified (5) HTN (hypertension) Code(s): I10 - ESSENTIAL (PRIMARY) HYPERTENSION (6) Hypothyroidism Code(s): E03.9 - HYPOTHYROIDISM, UNSPECIFIED wbc and platelets same hb has drifted down plan continue abx close watch rest as per primary
[2017-04-05] MEDS ORDERED: LORazepam 2 MG/ML SDV VIAL ONE (15:44)
[2017-04-06] MEDS: LORazepam 2 MG/ML SDV VIAL IVPUSH PRN (03:02)
[2017-04-06] MEDS: THIAMINE HCL 200 MG/2 ML VIAL IVPB SCH ×2 (03:03→10:59)
[2017-04-06] MEDS: HEPARIN NA (PORCINE) 5,000 UNITS/ML 1ML VIAL SQ SCH ×3 (06:35→21:38)
[2017-04-06] MEDS: LEVOTHYROXINE NA 88 MCG TABLET (FP) PO SCH ×2 (06:35→06:39)
[2017-04-06 07:08] LABS: MCH 36.6 pg (25.7-33.7); MEAN CELL VOLUME 101.8 fl (80-96); PLATELET COUNT 98 K/MM3 (134-434); RDW 15.1 % (11.6-15.6); WHITE BLOOD COUNT 2.3 K/mm3 (4.0-10.0)
[2017-04-06 08:21] LABS: TOTAL CELLS COUNTED 100
[2017-04-06 08:33] LABS: ANION GAP 6 (8-16); CALCIUM 8.8 mg/dL (8.5-10.1); CO2 28 mmol/L (21-32); GLUCOSE,RANDOM 96 mg/dL (74-106); MAGNESIUM 2.1 mg/dL (1.8-2.4); PHOSPHOROUS 2.2 mg/dL (2.5-4.9)
[2017-04-06] MEDS ORDERED: cefTRIAXone SODIUM 1 GM VIAL ONE (10:49)
[2017-04-06] MEDS ORDERED: PT OWN MED DRAWER 7, Y5N ONE (10:49)
[2017-04-06] MEDS ORDERED: DEXTROSE 5%-WATER - 50 ML IVPB ONE (10:49)
[2017-04-06] MEDS: CEFTRIAXONE 1 GM in DEXTROSE 5%-WATER - 50 ML IVPB SCH (10:56)
[2017-04-06] MEDS: LISINOPRIL 5 MG TABLET (FP) PO SCH (10:58)
[2017-04-06] MEDS: CARVEDILOL 3.125 MG TABLET (FP) PO SCH ×2 (10:59→21:38)
[2017-04-06] MEDS: ASPIRIN COATED 81 MG TABLET.EC PO SCH (10:59)
--- NOTE | 2017-04-06 14:24 | PN ---
Progress Note, Physician History of Present Illness: calm confused wbc increasing - Current Medication List Current Medications: Active Medications Acetaminophen (Tylenol -) 650 mg PO Q4H PRN PRN Reason: FEVER OR PAIN Last Admin: 04/03/17 12:56 Dose: 650 mg Aspirin (Ecotrin -) 81 mg PO DAILY [facility] Last Admin: 04/06/17 10:59 Dose: 81 mg Carvedilol (Coreg -) 3.125 mg PO BID [facility] Last Admin: 04/06/17 10:59 Dose: 3.125 mg Heparin Sodium (Porcine) (Heparin -) 5,000 unit SQ TID [facility] Last Admin: 04/06/17 06:35 Dose: 5,000 unit Ceftriaxone Sodium 1 gm/ (Dextrose) 50 mls @ 100 mls/hr IVPB DAILY [facility] Last Admin: 04/06/17 10:56 Dose: 100 mls/hr Levothyroxine Sodium (Synthroid -) 88 mcg PO DAILY@0700 [facility] Last Admin: 04/06/17 06:39 Dose: Not Given Lisinopril (Prinivil) 2.5 mg PO DAILY [facility] Last Admin: 04/06/17 10:58 Dose: 2.5 mg Lorazepam (Ativan Injection -) 0.5 mg IVPUSH Q6H PRN PRN Reason: ANXIETY Last Admin: 04/06/17 03:02 Dose: 0.5 mg Thiamine HCl (Vitamin B1 Injection -) 200 mg IVPB Q8H-IV [facility] Stop: 04/06/17 15:44 Last Admin: 04/06/17 10:59 Dose: 200 mg - Objective Vital Signs: Vital Signs Temperature 98 F 04/06/17 11:12 Pulse Rate 78 04/06/17 11:12 Respiratory Rate 18 04/06/17 11:12 Blood Pressure 149/78 04/06/17 11:12 O2 Sat by Pulse Oximetry (%) 98 04/05/17 21:00 Constitutional: Yes: No Distress, Calm Cardiovascular: Yes: Regular Rate and Rhythm Respiratory: Yes: Regular, CTA Bilaterally Gastrointestinal: Yes: Normal Bowel Sounds, Soft Musculoskeletal: Yes: WNL Extremities: Yes: WNL Neurological: Yes: Alert, Oriented Psychiatric: Yes: Alert Labs: CBC, BMP 04/06/17 06:30 04/06/17 06:30 INR, PTT INR 1.05 (0.82-1.09) 04/01/17 14:56 Assessment/Plan Problem List - Problems (1) UTI (urinary tract infection) Code(s): N39.0 - URINARY TRACT INFECTION, SITE NOT SPECIFIED (2) Dementia Code(s): F03.90 - UNSPECIFIED DEMENTIA WITHOUT BEHAVIORAL DISTURBANCE (3) Pancytopenia Code(s): D61.818 - OTHER PANCYTOPENIA (4) CHF (congestive heart failure) Code(s): I50.9 - HEART FAILURE, UNSPECIFIED Qualifiers: Congestive heart failure type: unspecified congestive heart failure type Congestive heart failure chronicity: chronic Qualified Code(s): I50.9 - Heart failure, unspecified (5) HTN (hypertension) Code(s): I10 - ESSENTIAL (PRIMARY) HYPERTENSION (6) Hypothyroidism Code(s): E03.9 - HYPOTHYROIDISM, UNSPECIFIED wbc and platelets same hb has drifted down plan continue abx close watch rest as per primary
--- NOTE | 2017-04-06 15:00 | PN ---
Progress Note, Physician Chief Complaint: Ms Aguilar says she feels fine today. Denies chest pain, shortness of breath, nausea and vomiting. - Current Medication List Current Medications: Active Medications Acetaminophen (Tylenol -) 650 mg PO Q4H PRN PRN Reason: FEVER OR PAIN Last Admin: 04/03/17 12:56 Dose: 650 mg Aspirin (Ecotrin -) 81 mg PO DAILY [facility] Last Admin: 04/06/17 10:59 Dose: 81 mg Carvedilol (Coreg -) 3.125 mg PO BID [facility] Last Admin: 04/06/17 10:59 Dose: 3.125 mg Heparin Sodium (Porcine) (Heparin -) 5,000 unit SQ TID [facility] Last Admin: 04/06/17 14:54 Dose: Not Given Ceftriaxone Sodium 1 gm/ (Dextrose) 50 mls @ 100 mls/hr IVPB DAILY [facility] Last Admin: 04/06/17 10:56 Dose: 100 mls/hr Levothyroxine Sodium (Synthroid -) 88 mcg PO DAILY@0700 [facility] Last Admin: 04/06/17 06:39 Dose: Not Given Lisinopril (Prinivil) 2.5 mg PO DAILY [facility] Last Admin: 04/06/17 10:58 Dose: 2.5 mg Lorazepam (Ativan Injection -) 0.5 mg IVPUSH Q6H PRN PRN Reason: ANXIETY Last Admin: 04/06/17 03:02 Dose: 0.5 mg Thiamine HCl (Vitamin B1 Injection -) 200 mg IVPB Q8H-IV [facility] Stop: 04/06/17 15:44 Last Admin: 04/06/17 10:59 Dose: 200 mg - Objective Vital Signs: Vital Signs Temperature 36.6 C 04/06/17 11:12 Pulse Rate 78 04/06/17 11:12 Respiratory Rate 18 04/06/17 11:12 Blood Pressure 149/78 04/06/17 11:12 O2 Sat by Pulse Oximetry (%) 98 04/05/17 21:00 Constitutional: Yes: Well Nourished, No Distress, Calm Cardiovascular: Yes: Regular Rate and Rhythm. No: Gallop, Murmur, Rub Respiratory: Yes: Regular, CTA Bilaterally. No: Rales, Rhonchi, Wheezes Gastrointestinal: Yes: Normal Bowel Sounds, Soft. No: Distention, Tenderness Extremities: Yes: WNL Edema: No Labs: CBC, BMP 04/06/17 06:30 04/06/17 06:30 INR, PTT INR 1.05 (0.82-1.09) 04/01/17 14:56 Problem List - Problems (1) UTI (urinary tract infection) Code(s): N39.0 - URINARY TRACT INFECTION, SITE NOT SPECIFIED (2) Dementia Code(s): F03.90 - UNSPECIFIED DEMENTIA WITHOUT BEHAVIORAL DISTURBANCE (3) Pancytopenia Code(s): D61.818 - OTHER PANCYTOPENIA (4) CHF (congestive heart failure) Code(s): I50.9 - HEART FAILURE, UNSPECIFIED Qualifiers: Congestive heart failure type: unspecified congestive heart failure type Congestive heart failure chronicity: chronic Qualified Code(s): I50.9 - Heart failure, unspecified (5) HTN (hypertension) Code(s): I10 - ESSENTIAL (PRIMARY) HYPERTENSION (6) Hypothyroidism Code(s): E03.9 - HYPOTHYROIDISM, UNSPECIFIED Assessment/Plan (1) UTI (urinary tract infection) Assessment/Plan: -ID following -continue rocephin -cultures evaluated -dispo planning once safe to transition off of IV antibiotics Code(s): N39.0 - URINARY TRACT INFECTION, SITE NOT SPECIFIED (2) Dementia Assessment/Plan: -neurology following -mental status improved -suspect had metabolic encephalopathy worsening her underlying dementia -MRI read reviewed, will await further recommendations from neurology Code(s): F03.90 - UNSPECIFIED DEMENTIA WITHOUT BEHAVIORAL DISTURBANCE (3) Pancytopenia Assessment/Plan: -stable -patient has acute process currently -monitor, would hold on bone marrow biopsy at this time -if remains stable, ok for outpatient monitoring Code(s): D61.818 - OTHER PANCYTOPENIA (4) CHF (congestive heart failure) Assessment/Plan: -not in exacerbation -continue lasix Code(s): I50.9 - HEART FAILURE, UNSPECIFIED Qualifiers: Congestive heart failure type: unspecified congestive heart failure type Congestive heart failure chronicity: chronic Qualified Code(s): I50.9 - Heart failure, unspecified (5) HTN (hypertension) Assessment/Plan: -continue coreg and lisinopril Code(s): I10 - ESSENTIAL (PRIMARY) HYPERTENSION (6) Hypothyroidism Assessment/Plan: -TSH low and FT4 high -decreased synthroid to 88mcg Code(s): E03.9 - HYPOTHYROIDISM, UNSPECIFIED
[2017-04-06] MEDS: NAPH,MB-DB/K PH,MBDB POWDER PACKET PO SCH (21:38)
[2017-04-07] MEDS: LEVOTHYROXINE NA 88 MCG TABLET (FP) PO SCH (06:10)
[2017-04-07] MEDS: HEPARIN NA (PORCINE) 5,000 UNITS/ML 1ML VIAL SQ SCH (06:10)
[2017-04-07] MEDS ORDERED: PT OWN MED DRAWER 7, Y5N ONE (06:24)
[2017-04-07 08:10] LABS: BASOPHIL 0.3 % (0-2.0); EOSINOPHIL 2.6 % (0-4.5); MCH 36.2 pg (25.7-33.7); MCHC 35.7 g/dl (32.0-36.0); MEAN CELL VOLUME 101.4 fl (80-96); MEAN PLT VOLUME 7.2 fl (7.5-11.1); NEUTROPHILS 41.1 % (42.8-82.8); PLATELET COUNT 100 K/MM3 (134-434); WHITE BLOOD COUNT 2.4 K/mm3 (4.0-10.0)
[2017-04-07 08:18] LABS: ANION GAP 8 (8-16); CALCIUM 8.9 mg/dL (8.5-10.1); CO2 27 mmol/L (21-32); GLUCOSE,RANDOM 103 mg/dL (74-106); MAGNESIUM 2.1 mg/dL (1.8-2.4); PHOSPHOROUS 2.6 mg/dL (2.5-4.9)
[2017-04-07 08:19] LABS: CREATININE 1.1 mg/dL (0.55-1.02)
[2017-04-07] MEDS ORDERED: DEXTROSE 5%-WATER - 50 ML IVPB ONE (09:41)
[2017-04-07] MEDS ORDERED: cefTRIAXone SODIUM 1 GM VIAL ONE (09:41)
[2017-04-07] MEDS: LISINOPRIL 5 MG TABLET (FP) PO SCH (09:42)
[2017-04-07] MEDS: ASPIRIN COATED 81 MG TABLET.EC PO SCH (09:42)
[2017-04-07] MEDS: CEFTRIAXONE 1 GM in DEXTROSE 5%-WATER - 50 ML IVPB SCH (09:43)
[2017-04-07] MEDS: CARVEDILOL 3.125 MG TABLET (FP) PO SCH ×2 (09:43→21:30)
[2017-04-07] MEDS: NAPH,MB-DB/K PH,MBDB POWDER PACKET PO SCH ×2 (09:43→21:30)
--- NOTE | 2017-04-07 12:23 | PN ---
Progress Note, Physician Chief Complaint: Ms Aguilar is somnolent on exam. She moves all extremities and actively resists eye opening but is somnolent. - Current Medication List Current Medications: Active Medications Acetaminophen (Tylenol -) 650 mg PO Q4H PRN PRN Reason: FEVER OR PAIN Last Admin: 04/03/17 12:56 Dose: 650 mg Aspirin (Ecotrin -) 81 mg PO DAILY [facility] Last Admin: 04/07/17 09:42 Dose: 81 mg Carvedilol (Coreg -) 3.125 mg PO BID [facility] Last Admin: 04/07/17 09:43 Dose: 3.125 mg Heparin Sodium (Porcine) (Heparin -) 5,000 unit SQ TID [facility] Last Admin: 04/07/17 06:10 Dose: 5,000 unit Ceftriaxone Sodium 1 gm/ (Dextrose) 50 mls @ 100 mls/hr IVPB DAILY [facility] Last Admin: 04/07/17 09:43 Dose: 100 mls/hr Levothyroxine Sodium (Synthroid -) 88 mcg PO DAILY@0700 [facility] Last Admin: 04/07/17 06:10 Dose: Not Given Lisinopril (Prinivil) 2.5 mg PO DAILY [facility] Last Admin: 04/07/17 09:42 Dose: 2.5 mg Lorazepam (Ativan Injection -) 0.5 mg IVPUSH Q6H PRN PRN Reason: ANXIETY Last Admin: 04/06/17 03:02 Dose: 0.5 mg Potassium Phos/Sodium Phos (Phos-Nak Packet -) 1 packet PO BID [facility] Last Admin: 04/07/17 09:43 Dose: 1 packet - Objective Vital Signs: Vital Signs Temperature 36.9 C 04/07/17 09:58 Pulse Rate 82 04/07/17 09:58 Respiratory Rate 20 04/07/17 09:58 Blood Pressure 150/80 04/07/17 09:58 O2 Sat by Pulse Oximetry (%) 98 04/06/17 21:00 Constitutional: Yes: Other (somnolent) Cardiovascular: Yes: Regular Rate and Rhythm. No: Gallop, Murmur, Rub Respiratory: Yes: Regular, CTA Bilaterally. No: Rales, Rhonchi, Wheezes Gastrointestinal: Yes: Normal Bowel Sounds, Soft. No: Distention, Vomiting Extremities: Yes: WNL Edema: No Labs: CBC, BMP 04/07/17 06:47 04/07/17 06:47 INR, PTT INR 1.05 (0.82-1.09) 04/01/17 14:56 Problem List - Problems (1) UTI (urinary tract infection) Code(s): N39.0 - URINARY TRACT INFECTION, SITE NOT SPECIFIED (2) Dementia Code(s): F03.90 - UNSPECIFIED DEMENTIA WITHOUT BEHAVIORAL DISTURBANCE (3) Pancytopenia Code(s): D61.818 - OTHER PANCYTOPENIA (4) CHF (congestive heart failure) Code(s): I50.9 - HEART FAILURE, UNSPECIFIED Qualifiers: Congestive heart failure type: unspecified congestive heart failure type Congestive heart failure chronicity: chronic Qualified Code(s): I50.9 - Heart failure, unspecified (5) HTN (hypertension) Code(s): I10 - ESSENTIAL (PRIMARY) HYPERTENSION (6) Hypothyroidism Code(s): E03.9 - HYPOTHYROIDISM, UNSPECIFIED Assessment/Plan (1) UTI (urinary tract infection) Assessment/Plan: -ID following -continue rocephin -await recommendations for duration of antibiotics Code(s): N39.0 - URINARY TRACT INFECTION, SITE NOT SPECIFIED (2) Dementia Assessment/Plan: -somnolent today -neurologically stable and protecting airway -VSS -check FSBS, if normal will obtain head CT to evaluate since change Code(s): F03.90 - UNSPECIFIED DEMENTIA WITHOUT BEHAVIORAL DISTURBANCE (3) Pancytopenia Assessment/Plan: -stable -patient has acute process currently -monitor, would hold on bone marrow biopsy at this time -if remains stable, ok for outpatient monitoring Code(s): D61.818 - OTHER PANCYTOPENIA (4) CHF (congestive heart failure) Assessment/Plan: -not in exacerbation -continue lasix Code(s): I50.9 - HEART FAILURE, UNSPECIFIED Qualifiers: Congestive heart failure type: unspecified congestive heart failure type Congestive heart failure chronicity: chronic Qualified Code(s): I50.9 - Heart failure, unspecified (5) HTN (hypertension) Assessment/Plan: -continue coreg and lisinopril Code(s): I10 - ESSENTIAL (PRIMARY) HYPERTENSION (6) Hypothyroidism Assessment/Plan: -TSH low and FT4 high -decreased synthroid to 88mcg Code(s): E03.9 - HYPOTHYROIDISM, UNSPECIFIED
--- NOTE | 2017-04-07 13:09 | PN ---
Progress Note, Physician History of Present Illness: seems patient was lethargic in the morning going for imaging studies currently she is ok - Current Medication List Current Medications: Active Medications Acetaminophen (Tylenol -) 650 mg PO Q4H PRN PRN Reason: FEVER OR PAIN Last Admin: 04/03/17 12:56 Dose: 650 mg Aspirin (Ecotrin -) 81 mg PO DAILY [facility] Last Admin: 04/07/17 09:42 Dose: 81 mg Carvedilol (Coreg -) 3.125 mg PO BID [facility] Last Admin: 04/07/17 09:43 Dose: 3.125 mg Ceftriaxone Sodium 1 gm/ (Dextrose) 50 mls @ 100 mls/hr IVPB DAILY [facility] Last Admin: 04/07/17 09:43 Dose: 100 mls/hr Levothyroxine Sodium (Synthroid -) 88 mcg PO DAILY@0700 [facility] Last Admin: 04/07/17 06:10 Dose: Not Given Lisinopril (Prinivil) 2.5 mg PO DAILY [facility] Last Admin: 04/07/17 09:42 Dose: 2.5 mg Lorazepam (Ativan Injection -) 0.5 mg IVPUSH Q6H PRN PRN Reason: ANXIETY Last Admin: 04/06/17 03:02 Dose: 0.5 mg Potassium Phos/Sodium Phos (Phos-Nak Packet -) 1 packet PO BID [facility] Last Admin: 04/07/17 09:43 Dose: 1 packet - Objective Vital Signs: Vital Signs Temperature 98.5 F 04/07/17 09:58 Pulse Rate 82 04/07/17 09:58 Respiratory Rate 20 04/07/17 09:58 Blood Pressure 150/80 04/07/17 09:58 O2 Sat by Pulse Oximetry (%) 96 04/07/17 09:00 Constitutional: Yes: No Distress, Calm Cardiovascular: Yes: Regular Rate and Rhythm Respiratory: Yes: Regular, CTA Bilaterally Gastrointestinal: Yes: Normal Bowel Sounds, Soft Musculoskeletal: Yes: WNL Extremities: Yes: WNL Neurological: Yes: Alert, Other (dementia) Psychiatric: Yes: Alert, Other Labs: CBC, BMP 04/07/17 06:47 04/07/17 06:47 INR, PTT INR 1.05 (0.82-1.09) 04/01/17 14:56 - ....Imaging Cat Scan: Report Reviewed, Image Reviewed Assessment/Plan Problem List - Problems (1) UTI (urinary tract infection) Code(s): N39.0 - URINARY TRACT INFECTION, SITE NOT SPECIFIED (2) Dementia Code(s): F03.90 - UNSPECIFIED DEMENTIA WITHOUT BEHAVIORAL DISTURBANCE (3) Pancytopenia Code(s): D61.818 - OTHER PANCYTOPENIA (4) CHF (congestive heart failure) Code(s): I50.9 - HEART FAILURE, UNSPECIFIED Qualifiers: Congestive heart failure type: unspecified congestive heart failure type Congestive heart failure chronicity: chronic Qualified Code(s): I50.9 - Heart failure, unspecified (5) HTN (hypertension) Code(s): I10 - ESSENTIAL (PRIMARY) HYPERTENSION (6) Hypothyroidism Code(s): E03.9 - HYPOTHYROIDISM, UNSPECIFIED plan continue abx will stop abx after tomorrows dose and observe
[2017-04-08] MEDS: LEVOTHYROXINE NA 88 MCG TABLET (FP) PO SCH (06:09)
[2017-04-08 07:59] LABS: BASOPHIL 0.4 % (0-2.0); EOSINOPHIL 4.5 % (0-4.5); MCH 36.4 pg (25.7-33.7); MCHC 35.9 g/dl (32.0-36.0); MEAN CELL VOLUME 101.6 fl (80-96); MEAN PLT VOLUME 7.3 fl (7.5-11.1); NEUTROPHILS 34.8 % (42.8-82.8); PLATELET COUNT 101 K/MM3 (134-434); RDW 15.4 % (11.6-15.6); WHITE BLOOD COUNT 2.4 K/mm3 (4.0-10.0)
[2017-04-08 08:24] LABS: ANION GAP 8 (8-16); CALCIUM 9.1 mg/dL (8.5-10.1); CO2 28 mmol/L (21-32); CREATININE 1.1 mg/dL (0.55-1.02); GLUCOSE,RANDOM 94 mg/dL (74-106); MAGNESIUM 2.1 mg/dL (1.8-2.4); PHOSPHOROUS 3.2 mg/dL (2.5-4.9)
[2017-04-08] MEDS ORDERED: cefTRIAXone SODIUM 1 GM VIAL ONE (10:34)
[2017-04-08] MEDS ORDERED: DEXTROSE 5%-WATER - 50 ML IVPB ONE (10:35)
[2017-04-08] MEDS: LISINOPRIL 5 MG TABLET (FP) PO SCH (10:36)
[2017-04-08] MEDS: ASPIRIN COATED 81 MG TABLET.EC PO SCH (10:36)
[2017-04-08] MEDS: CARVEDILOL 3.125 MG TABLET (FP) PO SCH ×2 (10:36→21:15)
[2017-04-08] MEDS: NAPH,MB-DB/K PH,MBDB POWDER PACKET PO SCH ×2 (10:37→21:16)
[2017-04-08] MEDS: CEFTRIAXONE 1 GM in DEXTROSE 5%-WATER - 50 ML IVPB SCH (10:37)
[2017-04-08] MEDS: ACETAMINOPHEN 325 MG TABLET (FP) PO PRN (12:18)
--- NOTE | 2017-04-08 12:25 | PN ---
Progress Note, Physician Chief Complaint: Ms Aguilar is awake today and complaining about having to take her pills. Unable to obtain further subjective. - Current Medication List Current Medications: Active Medications Acetaminophen (Tylenol -) 650 mg PO Q4H PRN PRN Reason: FEVER OR PAIN Last Admin: 04/03/17 12:56 Dose: 650 mg Aspirin (Ecotrin -) 81 mg PO DAILY [facility] Last Admin: 04/08/17 10:36 Dose: 81 mg Carvedilol (Coreg -) 3.125 mg PO BID [facility] Last Admin: 04/08/17 10:36 Dose: 3.125 mg Ceftriaxone Sodium 1 gm/ (Dextrose) 50 mls @ 100 mls/hr IVPB DAILY [facility] Last Admin: 04/08/17 10:37 Dose: 100 mls/hr Levothyroxine Sodium (Synthroid -) 88 mcg PO DAILY@0700 [facility] Last Admin: 04/08/17 06:09 Dose: 88 mcg Lisinopril (Prinivil) 2.5 mg PO DAILY [facility] Last Admin: 04/08/17 10:36 Dose: 2.5 mg Lorazepam (Ativan Injection -) 0.5 mg IVPUSH Q6H PRN PRN Reason: ANXIETY Last Admin: 04/06/17 03:02 Dose: 0.5 mg Potassium Phos/Sodium Phos (Phos-Nak Packet -) 1 packet PO BID [facility] Last Admin: 04/08/17 10:37 Dose: 1 packet - Objective Vital Signs: Vital Signs Temperature 36.6 C 04/08/17 06:00 Pulse Rate 87 04/08/17 06:00 Respiratory Rate 18 04/08/17 06:00 Blood Pressure 130/64 04/08/17 06:00 O2 Sat by Pulse Oximetry (%) 96 04/07/17 20:30 Constitutional: Yes: No Distress, Calm, Thin Cardiovascular: Yes: Regular Rate and Rhythm. No: Gallop, Murmur, Rub Respiratory: Yes: Regular, CTA Bilaterally. No: Rales, Rhonchi, Wheezes Gastrointestinal: Yes: Normal Bowel Sounds, Soft. No: Distention, Tenderness Extremities: Yes: WNL Edema: No Labs: CBC, BMP 04/08/17 06:00 04/08/17 06:00 INR, PTT INR 1.05 (0.82-1.09) 04/01/17 14:56 Problem List - Problems (1) UTI (urinary tract infection) Code(s): N39.0 - URINARY TRACT INFECTION, SITE NOT SPECIFIED (2) Dementia Code(s): F03.90 - UNSPECIFIED DEMENTIA WITHOUT BEHAVIORAL DISTURBANCE (3) Pancytopenia Code(s): D61.818 - OTHER PANCYTOPENIA (4) CHF (congestive heart failure) Code(s): I50.9 - HEART FAILURE, UNSPECIFIED Qualifiers: Congestive heart failure type: unspecified congestive heart failure type Congestive heart failure chronicity: chronic Qualified Code(s): I50.9 - Heart failure, unspecified (5) HTN (hypertension) Code(s): I10 - ESSENTIAL (PRIMARY) HYPERTENSION (6) Hypothyroidism Code(s): E03.9 - HYPOTHYROIDISM, UNSPECIFIED Assessment/Plan (1) UTI (urinary tract infection) Assessment/Plan: -ID following -continue rocephin -plan to stop antibiotics tomorrow Code(s): N39.0 - URINARY TRACT INFECTION, SITE NOT SPECIFIED (2) Dementia Assessment/Plan: -back to baseline Code(s): F03.90 - UNSPECIFIED DEMENTIA WITHOUT BEHAVIORAL DISTURBANCE (3) Pancytopenia Assessment/Plan: -stable and slightly improved -continue to monitor Code(s): D61.818 - OTHER PANCYTOPENIA (4) CHF (congestive heart failure) Assessment/Plan: -not in exacerbation -continue lasix Code(s): I50.9 - HEART FAILURE, UNSPECIFIED Qualifiers: Congestive heart failure type: unspecified congestive heart failure type Congestive heart failure chronicity: chronic Qualified Code(s): I50.9 - Heart failure, unspecified (5) HTN (hypertension) Assessment/Plan: -continue coreg and lisinopril Code(s): I10 - ESSENTIAL (PRIMARY) HYPERTENSION (6) Hypothyroidism Assessment/Plan: -TSH low and FT4 high -decreased synthroid to 88mcg Code(s): E03.9 - HYPOTHYROIDISM, UNSPECIFIED
--- NOTE | 2017-04-08 15:20 | PN ---
Progress Note, Physician History of Present Illness: much more better no new issues awake and alert - Current Medication List Current Medications: Active Medications Acetaminophen (Tylenol -) 650 mg PO Q4H PRN PRN Reason: FEVER OR PAIN Last Admin: 04/08/17 12:18 Dose: 650 mg Aspirin (Ecotrin -) 81 mg PO DAILY [facility] Last Admin: 04/08/17 10:36 Dose: 81 mg Carvedilol (Coreg -) 3.125 mg PO BID [facility] Last Admin: 04/08/17 10:36 Dose: 3.125 mg Ceftriaxone Sodium 1 gm/ (Dextrose) 50 mls @ 100 mls/hr IVPB DAILY [facility] Last Admin: 04/08/17 10:37 Dose: 100 mls/hr Levothyroxine Sodium (Synthroid -) 88 mcg PO DAILY@0700 [facility] Last Admin: 04/08/17 06:09 Dose: 88 mcg Lisinopril (Prinivil) 2.5 mg PO DAILY [facility] Last Admin: 04/08/17 10:36 Dose: 2.5 mg Lorazepam (Ativan Injection -) 0.5 mg IVPUSH Q6H PRN PRN Reason: ANXIETY Last Admin: 04/06/17 03:02 Dose: 0.5 mg Potassium Phos/Sodium Phos (Phos-Nak Packet -) 1 packet PO BID [facility] Last Admin: 04/08/17 10:37 Dose: 1 packet - Objective Vital Signs: Vital Signs Temperature 98 F 04/08/17 15:05 Pulse Rate 73 04/08/17 15:05 Respiratory Rate 20 04/08/17 15:05 Blood Pressure 146/60 04/08/17 15:05 O2 Sat by Pulse Oximetry (%) 96 04/07/17 20:30 Constitutional: Yes: No Distress, Calm Eyes: Yes: Conjunctiva Clear Cardiovascular: Yes: Regular Rate and Rhythm Respiratory: Yes: Regular, CTA Bilaterally Gastrointestinal: Yes: Normal Bowel Sounds, Soft Musculoskeletal: Yes: WNL Extremities: Yes: WNL Neurological: Yes: Alert, Other Psychiatric: Yes: Other Labs: CBC, BMP 04/08/17 06:00 04/08/17 06:00 INR, PTT INR 1.05 (0.82-1.09) 04/01/17 14:56 Assessment/Plan Problem List - Problems (1) UTI (urinary tract infection) Code(s): N39.0 - URINARY TRACT INFECTION, SITE NOT SPECIFIED (2) Dementia Code(s): F03.90 - UNSPECIFIED DEMENTIA WITHOUT BEHAVIORAL DISTURBANCE (3) Pancytopenia Code(s): D61.818 - OTHER PANCYTOPENIA (4) CHF (congestive heart failure) Code(s): I50.9 - HEART FAILURE, UNSPECIFIED Qualifiers: Congestive heart failure type: unspecified congestive heart failure type Congestive heart failure chronicity: chronic Qualified Code(s): I50.9 - Heart failure, unspecified (5) HTN (hypertension) Code(s): I10 - ESSENTIAL (PRIMARY) HYPERTENSION (6) Hypothyroidism Code(s): E03.9 - HYPOTHYROIDISM, UNSPECIFIED plan continue abx blood work looked at will stop abx after tomorrows dose rest as per primary
[2017-04-08] MEDS: LORazepam 2 MG/ML SDV VIAL IVPUSH PRN (15:32)
[2017-04-09] MEDS: LEVOTHYROXINE NA 88 MCG TABLET (FP) PO SCH ×2 (06:14→06:18)
[2017-04-09 07:38] LABS: BASOPHIL 0.3 % (0-2.0); MCH 36.2 pg (25.7-33.7); MCHC 35.7 g/dl (32.0-36.0); MEAN CELL VOLUME 101.4 fl (80-96); MEAN PLT VOLUME 6.9 fl (7.5-11.1); PLATELET COUNT 108 K/MM3 (134-434); WHITE BLOOD COUNT 2.5 K/mm3 (4.0-10.0)
[2017-04-09 08:10] LABS: ANION GAP 8 (8-16); CO2 27 mmol/L (21-32); GLUCOSE,RANDOM 112 mg/dL (74-106); MAGNESIUM 2.1 mg/dL (1.8-2.4)
[2017-04-09 08:12] LABS: CREATININE 1.1 mg/dL (0.55-1.02); PHOSPHOROUS 3.2 mg/dL (2.5-4.9)
[2017-04-09] MEDS ORDERED: cefTRIAXone SODIUM 1 GM VIAL ONE (09:56)
[2017-04-09] MEDS ORDERED: DEXTROSE 5%-WATER - 50 ML IVPB ONE (09:56)
[2017-04-09] MEDS: ASPIRIN COATED 81 MG TABLET.EC PO SCH (10:01)
[2017-04-09] MEDS: LISINOPRIL 5 MG TABLET (FP) PO SCH (10:01)
[2017-04-09] MEDS: CARVEDILOL 3.125 MG TABLET (FP) PO SCH ×2 (10:01→21:30)
[2017-04-09] MEDS: NAPH,MB-DB/K PH,MBDB POWDER PACKET PO SCH ×2 (10:03→21:31)
[2017-04-09] MEDS: CEFTRIAXONE 1 GM in DEXTROSE 5%-WATER - 50 ML IVPB SCH (10:03)
--- NOTE | 2017-04-09 12:16 | PN ---
Progress Note, Physician Chief Complaint: Ms Aguilar is awake but non-verbal today - Current Medication List Current Medications: Active Medications Acetaminophen (Tylenol -) 650 mg PO Q4H PRN PRN Reason: FEVER OR PAIN Last Admin: 04/08/17 12:18 Dose: 650 mg Aspirin (Ecotrin -) 81 mg PO DAILY [facility] Last Admin: 04/09/17 10:01 Dose: 81 mg Carvedilol (Coreg -) 3.125 mg PO BID [facility] Last Admin: 04/09/17 10:01 Dose: 3.125 mg Ceftriaxone Sodium 1 gm/ (Dextrose) 50 mls @ 100 mls/hr IVPB DAILY [facility] Last Admin: 04/09/17 10:03 Dose: 100 mls/hr Levothyroxine Sodium (Synthroid -) 88 mcg PO DAILY@0700 [facility] Last Admin: 04/09/17 06:18 Dose: Not Given Lisinopril (Prinivil) 2.5 mg PO DAILY [facility] Last Admin: 04/09/17 10:01 Dose: 2.5 mg Lorazepam (Ativan Injection -) 0.5 mg IVPUSH Q6H PRN PRN Reason: ANXIETY Last Admin: 04/08/17 15:32 Dose: 0.5 mg Potassium Phos/Sodium Phos (Phos-Nak Packet -) 1 packet PO BID [facility] Last Admin: 04/09/17 10:03 Dose: 1 packet - Objective Vital Signs: Vital Signs Temperature 36.3 C L 04/09/17 06:00 Pulse Rate 103 H 04/09/17 06:00 Respiratory Rate 18 04/09/17 06:00 Blood Pressure 116/68 04/09/17 06:00 O2 Sat by Pulse Oximetry (%) 96 04/08/17 19:43 Constitutional: Yes: No Distress, Calm, Thin Cardiovascular: Yes: Regular Rate and Rhythm. No: Gallop, Murmur, Rub Respiratory: Yes: Regular, CTA Bilaterally. No: Rales, Rhonchi, Wheezes Gastrointestinal: Yes: Normal Bowel Sounds, Soft. No: Distention, Tenderness Extremities: Yes: WNL Edema: No Labs: CBC, BMP 04/09/17 06:30 04/09/17 06:30 INR, PTT INR 1.05 (0.82-1.09) 04/01/17 14:56 Problem List - Problems (1) UTI (urinary tract infection) Code(s): N39.0 - URINARY TRACT INFECTION, SITE NOT SPECIFIED (2) Dementia Code(s): F03.90 - UNSPECIFIED DEMENTIA WITHOUT BEHAVIORAL DISTURBANCE (3) Pancytopenia Code(s): D61.818 - OTHER PANCYTOPENIA (4) CHF (congestive heart failure) Code(s): I50.9 - HEART FAILURE, UNSPECIFIED Qualifiers: Congestive heart failure type: unspecified congestive heart failure type Congestive heart failure chronicity: chronic Qualified Code(s): I50.9 - Heart failure, unspecified (5) HTN (hypertension) Code(s): I10 - ESSENTIAL (PRIMARY) HYPERTENSION (6) Hypothyroidism Code(s): E03.9 - HYPOTHYROIDISM, UNSPECIFIED Assessment/Plan (1) UTI (urinary tract infection) Assessment/Plan: -ID following -stop rocephin today -monitor, if stable then plan for discharge to SNF tomorrow/Wednesday Code(s): N39.0 - URINARY TRACT INFECTION, SITE NOT SPECIFIED (2) Dementia Assessment/Plan: -back to baseline Code(s): F03.90 - UNSPECIFIED DEMENTIA WITHOUT BEHAVIORAL DISTURBANCE (3) Pancytopenia Assessment/Plan: -stable and slightly improved -continue to monitor Code(s): D61.818 - OTHER PANCYTOPENIA (4) CHF (congestive heart failure) Assessment/Plan: -not in exacerbation -continue lasix Code(s): I50.9 - HEART FAILURE, UNSPECIFIED Qualifiers: Congestive heart failure type: unspecified congestive heart failure type Congestive heart failure chronicity: chronic Qualified Code(s): I50.9 - Heart failure, unspecified (5) HTN (hypertension) Assessment/Plan: -continue coreg and lisinopril Code(s): I10 - ESSENTIAL (PRIMARY) HYPERTENSION (6) Hypothyroidism Assessment/Plan: -TSH low and FT4 high -decreased synthroid to 88mcg Code(s): E03.9 - HYPOTHYROIDISM, UNSPECIFIED Dispo -possible discharge to [facility] in am
--- NOTE | 2017-04-09 16:04 | PN ---
Progress Note, Physician History of Present Illness: much more better no new issues - Current Medication List Current Medications: Active Medications Acetaminophen (Tylenol -) 650 mg PO Q4H PRN PRN Reason: FEVER OR PAIN Last Admin: 04/08/17 12:18 Dose: 650 mg Aspirin (Ecotrin -) 81 mg PO DAILY [facility] Last Admin: 04/09/17 10:01 Dose: 81 mg Carvedilol (Coreg -) 3.125 mg PO BID [facility] Last Admin: 04/09/17 10:01 Dose: 3.125 mg Levothyroxine Sodium (Synthroid -) 88 mcg PO DAILY@0700 [facility] Last Admin: 04/09/17 06:18 Dose: Not Given Lisinopril (Prinivil) 2.5 mg PO DAILY [facility] Last Admin: 04/09/17 10:01 Dose: 2.5 mg Lorazepam (Ativan Injection -) 0.5 mg IVPUSH Q6H PRN PRN Reason: ANXIETY Last Admin: 04/08/17 15:32 Dose: 0.5 mg Potassium Phos/Sodium Phos (Phos-Nak Packet -) 1 packet PO BID [facility] Last Admin: 04/09/17 10:03 Dose: 1 packet - Objective Vital Signs: Vital Signs Temperature 98.2 F 04/09/17 15:18 Pulse Rate 90 04/09/17 15:18 Respiratory Rate 18 04/09/17 15:18 Blood Pressure 139/72 04/09/17 10:00 O2 Sat by Pulse Oximetry (%) 96 04/08/17 19:43 Constitutional: Yes: No Distress, Calm Cardiovascular: Yes: Regular Rate and Rhythm Respiratory: Yes: Regular, CTA Bilaterally Gastrointestinal: Yes: Normal Bowel Sounds, Soft Musculoskeletal: Yes: WNL Extremities: Yes: WNL Neurological: Yes: Alert, Other Labs: CBC, BMP 04/09/17 06:30 04/09/17 06:30 INR, PTT INR 1.05 (0.82-1.09) 04/01/17 14:56 Assessment/Plan Problem List - Problems (1) UTI (urinary tract infection) Code(s): N39.0 - URINARY TRACT INFECTION, SITE NOT SPECIFIED (2) Dementia Code(s): F03.90 - UNSPECIFIED DEMENTIA WITHOUT BEHAVIORAL DISTURBANCE (3) Pancytopenia Code(s): D61.818 - OTHER PANCYTOPENIA (4) CHF (congestive heart failure) Code(s): I50.9 - HEART FAILURE, UNSPECIFIED Qualifiers: Congestive heart failure type: unspecified congestive heart failure type Congestive heart failure chronicity: chronic Qualified Code(s): I50.9 - Heart failure, unspecified (5) HTN (hypertension) Code(s): I10 - ESSENTIAL (PRIMARY) HYPERTENSION (6) Hypothyroidism Code(s): E03.9 - HYPOTHYROIDISM, UNSPECIFIED plan stopped abx continue to monitor
[2017-04-09] MEDS: LEVOFLOXACIN 500 MG TABLET (FP) PO SCH (19:50)
[2017-04-09] MEDS: ACETAMINOPHEN 325 MG TABLET (FP) PO PRN (19:51)
[2017-04-10] MEDS: LEVOFLOXACIN 500 MG TABLET (FP) PO SCH (06:02)
[2017-04-10] MEDS: LEVOTHYROXINE NA 88 MCG TABLET (FP) PO SCH (06:03)
[2017-04-10 08:44] LABS: BASOPHIL 0.5 % (0-2.0); MCH 36.4 pg (25.7-33.7); MCHC 35.9 g/dl (32.0-36.0); MEAN CELL VOLUME 101.4 fl (80-96); NEUTROPHILS 45.2 % (42.8-82.8); PLATELET COUNT 107 K/MM3 (134-434); RDW 14.8 % (11.6-15.6); WHITE BLOOD COUNT 2.3 K/mm3 (4.0-10.0)
[2017-04-10 09:26] LABS: ANION GAP 6 (8-16); CALCIUM 9.5 mg/dL (8.5-10.1); CO2 28 mmol/L (21-32); CREATININE 1.1 mg/dL (0.55-1.02); GLUCOSE,RANDOM 101 mg/dL (74-106); MAGNESIUM 2.2 mg/dL (1.8-2.4); PHOSPHOROUS 3.2 mg/dL (2.5-4.9)
[2017-04-10] MEDS ORDERED: PT OWN MED DRAWER 7, Y5N ONE (09:34)
[2017-04-10] MEDS: LISINOPRIL 5 MG TABLET (FP) PO SCH (09:51)
[2017-04-10] MEDS: CARVEDILOL 3.125 MG TABLET (FP) PO SCH ×2 (09:51→21:22)
[2017-04-10] MEDS: ASPIRIN COATED 81 MG TABLET.EC PO SCH (09:51)
[2017-04-10] MEDS: NAPH,MB-DB/K PH,MBDB POWDER PACKET PO SCH ×2 (09:52→21:22)
--- NOTE | 2017-04-10 13:11 | PN ---
Progress Note, Physician History of Present Illness: Pt febrile to 102F last night Levaquin started empirically As per RN noted to be coughing Pt weak, currently afebrile - Current Medication List Current Medications: Active Medications Acetaminophen (Tylenol -) 650 mg PO Q4H PRN PRN Reason: FEVER OR PAIN Last Admin: 04/09/17 19:51 Dose: 650 mg Aspirin (Ecotrin -) 81 mg PO DAILY [facility] Last Admin: 04/10/17 09:51 Dose: 81 mg Carvedilol (Coreg -) 3.125 mg PO BID [facility] Last Admin: 04/10/17 09:51 Dose: 3.125 mg Levofloxacin (Levaquin -) 500 mg PO DAILY@0600 [facility] Last Admin: 04/10/17 06:02 Dose: 500 mg Levothyroxine Sodium (Synthroid -) 88 mcg PO DAILY@0700 [facility] Last Admin: 04/10/17 06:03 Dose: 88 mcg Lisinopril (Prinivil) 2.5 mg PO DAILY [facility] Last Admin: 04/10/17 09:51 Dose: 2.5 mg Lorazepam (Ativan Injection -) 0.5 mg IVPUSH Q6H PRN PRN Reason: ANXIETY Last Admin: 04/08/17 15:32 Dose: 0.5 mg Potassium Phos/Sodium Phos (Phos-Nak Packet -) 1 packet PO BID [facility] Last Admin: 04/10/17 09:52 Dose: 1 packet - Objective Vital Signs: Vital Signs Temperature 98 F 04/10/17 06:53 Pulse Rate 97 H 04/10/17 06:53 Respiratory Rate 16 04/10/17 06:53 Blood Pressure 152/74 04/10/17 06:53 O2 Sat by Pulse Oximetry (%) 92 L 04/09/17 21:25 Constitutional: Yes: No Distress Cardiovascular: Yes: Regular Rate and Rhythm Respiratory: Yes: Other (poor inspiratory effort) Gastrointestinal: Yes: Normal Bowel Sounds, Soft Extremities: Yes: WNL Integumentary: Yes: WNL Neurological: Yes: Weakness Labs: CBC, BMP 04/10/17 08:00 04/10/17 08:00 INR, PTT INR 1.05 (0.82-1.09) 04/01/17 14:56 Problem List - Problems (1) Pancytopenia Code(s): D61.818 - OTHER PANCYTOPENIA (2) Fever Code(s): R50.9 - FEVER, UNSPECIFIED (3) UTI (urinary tract infection) Code(s): N39.0 - URINARY TRACT INFECTION, SITE NOT SPECIFIED Assessment/Plan suggest continue levaquin for now if remains febrile with switch to broader spectrum antibiotic repeat blood cultures, CXR monitor closely
--- NOTE | 2017-04-10 14:02 | PN ---
Physical Exam: SUBJECTIVE: Patient seen and examined Patient is feeling better, with no acute distress, patient knows where she is but feels weak. OBJECTIVE: Vital Signs Temperature 98 F 04/10/17 06:53 Pulse Rate 97 H 04/10/17 06:53 Respiratory Rate 16 04/10/17 06:53 Blood Pressure 152/74 04/10/17 06:53 O2 Sat by Pulse Oximetry (%) 92 L 04/09/17 21:25 GENERAL: The patient is awake, alert, and fully oriented, in no acute distress. cachectic HEAD: Normal with no signs of trauma. EYES: PERRL, extraocular movements intact, sclera anicteric, conjunctiva clear. ENT: Ears normal, oropharynx clear without exudates, moist mucous membranes. NECK: Trachea midline, full range of motion, supple. LUNGS: Breath sounds equal, clear to auscultation bilaterally, no wheezes, no crackles, no accessory muscle use. HEART: Regular rate and rhythm, S1, S2 positive, Amanda 2/6 ABDOMEN: Soft, nontender, nondistended, normoactive bowel sounds, no guarding, no rebound. EXTREMITIES: 2+ pulses, warm, well-perfused, no edema. NEUROLOGICAL: Cranial nerves II through XII grossly intact. Normal speech, gait not observed. PSYCH: Normal mood, normal affect. SKIN: Warm, dry, normal turgor, no rashes or lesions noted Laboratory Results - last 24 hr 04/10/17 04/10/17 08:00 08:00 WBC 2.3 L RBC 2.54 L Hgb 9.3 L Hct 25.8 L MCV 101.4 H MCH 36.4 H MCHC 35.9 RDW 14.8 Plt Count 107 L MPV 7.0 L Neutrophils % 45.2 Lymphocytes % 43.8 H Monocytes % 8.5 Eosinophils % 2.0 Basophils % 0.5 Sodium 138 Potassium 4.1 Chloride 104 Carbon Dioxide 28 Anion Gap 6 L BUN 19 H Creatinine 1.1 H Random Glucose 101 Calcium 9.5 Phosphorus 3.2 Magnesium 2.2 Active Medications Generic Name Dose Route Start Last Admin Trade Name Freq PRN Reason Stop Dose Admin Acetaminophen 650 mg 04/03/17 12:32 04/09/17 19:51 Tylenol - PO 650 mg Q4H PRN Administration FEVER OR PAIN Aspirin 81 mg 04/02/17 10:00 04/10/17 09:51 Ecotrin - PO 81 mg DAILY JOCELYNE Administration Carvedilol 3.125 mg 04/03/17 12:32 04/10/17 09:51 Coreg - PO 3.125 mg BID JOCELYNE Administration Levofloxacin 500 mg 04/09/17 19:45 04/10/17 06:02 Levaquin - PO 500 mg DAILY@0600 JOCELYNE Administration Levothyroxine Sodium 88 mcg 04/03/17 07:00 04/10/17 06:03 Synthroid - PO 88 mcg DAILY@0700 JOCELYNE Administration Lisinopril 2.5 mg 04/02/17 10:00 04/10/17 09:51 Prinivil PO 2.5 mg DAILY JOCELYNE Administration Lorazepam 0.5 mg 04/06/17 02:52 04/08/17 15:32 Ativan Injection - IVPUSH 0.5 mg Q6H PRN Administration ANXIETY Potassium Phos/Sodium Phos 1 packet 04/06/17 22:00 04/10/17 09:52 Phos-Nak Packet - PO 1 packet BID JCOELYNE Administration Home Medications Medication Instructions Recorded Aspirin Coated [Ecotrin -] 81 mg PO DAILY #30 tablet.ec 01/03/14 Carvedilol [Coreg -] 3.125 mg PO BID #60 tablet 01/03/14 Levothyroxine [Synthroid -] 100 mcg PO DAILY@0700 #30 tablet 01/03/14 Lisinopril [Prinivil] 2.5 mg PO DAILY #30 tablet 01/03/14 Atorvastatin Ca [Lipitor] 10 mg PO HS 04/01/17 Clopidogrel Bisulfate [Plavix -] 75 mg PO DAILY 04/01/17 Folic Acid 1 mg PO DAILY 04/01/17 ASSESSMENT/PLAN: Patient is a 82 y/o F w/PMHx of hypothyroidism, HTN, CAD (s/p stent placement 2 years ago), former smoker (quit 2 months ago) presented to the ER from PCP's office for AMS and frequent falls. # UTI , ID following s/p rocephin. Continue Levaquin if stable then plan for discharge to SNF tomorrow/Wednesday # Dementia back to baseline # Pancytopenia stable and slightly improved # CHF (congestive heart failure), stable continue lasix # HTN (hypertension) continue coreg and lisinopril #Hx of Hypothyroidism continue TSH low and FT4 high, continue 88mcg Dispo -possible discharge to [facility] Visit type - Emergency Visit Emergency Visit: Yes ED Registration Date: 04/01/17 Care time: The patient presented to the Emergency Department on the above date and was hospitalized for further evaluation of their emergent condition. - New Patient This patient is new to me today: Yes Date on this admission: 04/10/17 - Critical Care Critical Care patient: No
[2017-04-11] MEDS: LEVOFLOXACIN 500 MG TABLET (FP) PO SCH (06:01)
[2017-04-11] MEDS: LEVOTHYROXINE NA 88 MCG TABLET (FP) PO SCH (06:01)
[2017-04-11] MEDS: CARVEDILOL 3.125 MG TABLET (FP) PO SCH ×2 (09:30→22:09)
[2017-04-11] MEDS: LISINOPRIL 5 MG TABLET (FP) PO SCH (09:30)
[2017-04-11] MEDS: ASPIRIN COATED 81 MG TABLET.EC PO SCH (09:37)
[2017-04-11] MEDS: NAPH,MB-DB/K PH,MBDB POWDER PACKET PO SCH ×2 (14:14→22:09)
--- NOTE | 2017-04-11 15:39 | PN ---
Progress Note, Physician History of Present Illness: Pt not taking po medication including levaquin. Not eating. remains lethargic. - Current Medication List Current Medications: Active Medications Acetaminophen (Tylenol -) 650 mg PO Q4H PRN PRN Reason: FEVER OR PAIN Last Admin: 04/09/17 19:51 Dose: 650 mg Aspirin (Ecotrin -) 81 mg PO DAILY [facility] Last Admin: 04/11/17 09:37 Dose: Not Given Carvedilol (Coreg -) 3.125 mg PO BID [facility] Last Admin: 04/11/17 09:30 Dose: 3.125 mg Levofloxacin (Levaquin -) 500 mg PO DAILY@0600 [facility] Last Admin: 04/11/17 06:01 Dose: 500 mg Levothyroxine Sodium (Synthroid -) 88 mcg PO DAILY@0700 [facility] Last Admin: 04/11/17 06:01 Dose: 88 mcg Lisinopril (Prinivil) 2.5 mg PO DAILY [facility] Last Admin: 04/11/17 09:30 Dose: 2.5 mg Lorazepam (Ativan Injection -) 0.5 mg IVPUSH Q6H PRN PRN Reason: ANXIETY Last Admin: 04/08/17 15:32 Dose: 0.5 mg Potassium Phos/Sodium Phos (Phos-Nak Packet -) 1 packet PO BID [facility] Last Admin: 04/11/17 14:14 Dose: Not Given - Objective Vital Signs: Vital Signs Temperature 99.6 F 04/11/17 11:57 Pulse Rate 98 H 04/11/17 09:12 Respiratory Rate 20 04/11/17 09:12 Blood Pressure 130/77 04/11/17 09:12 O2 Sat by Pulse Oximetry (%) 96 04/11/17 11:00 Constitutional: Yes: No Distress Neck: Yes: Supple Cardiovascular: Yes: Tachycardia Respiratory: Yes: Other (poor inspiratory effort, no rhonchi noted) Gastrointestinal: Yes: Normal Bowel Sounds, Soft Genitourinary: Yes: WNL Extremities: Yes: WNL Integumentary: Yes: Bruising (resolving echymosis in Lt side of abdomen) Neurological: Yes: Confusion, Weakness Labs: CBC, BMP 04/10/17 08:00 04/10/17 08:00 INR, PTT INR 1.05 (0.82-1.09) 04/01/17 14:56 Microbiology 04/10/17 13:25 Blood Culture - Preliminary Blood - Peripheral Venous NO GROWTH OBTAINED AFTER 24 HOURS, INCUBATION TO CONTINUE FOR 4 DAYS. 04/10/17 13:25 Blood Culture - Preliminary Blood - Peripheral Venous NO GROWTH OBTAINED AFTER 24 HOURS, INCUBATION TO CONTINUE FOR 4 DAYS. - ....Imaging Chest X-ray: Report Reviewed (no acute infiltrates) Problem List - Problems (1) Pancytopenia Code(s): D61.818 - OTHER PANCYTOPENIA (2) Fever Code(s): R50.9 - FEVER, UNSPECIFIED (3) UTI (urinary tract infection) Code(s): N39.0 - URINARY TRACT INFECTION, SITE NOT SPECIFIED (4) Altered mental status, unspecified Code(s): R41.82 - ALTERED MENTAL STATUS, UNSPECIFIED Assessment/Plan Pt remains lethargic, not eating or taking Levaquin Repeat blood cultures no growth so far d/c Levaquin Start Zosyn IV empirically repeat urine culture cont monitor vitals
[2017-04-11] MEDS ORDERED: SODIUM CHLORIDE 0.45% 1,000 ML IV SCH (15:45)
--- NOTE | 2017-04-11 15:53 | PN ---
Progress Note (short form) - Note Progress Note: Patient feels lethargic but with it. Has no appetite Vital Signs Temperature 98.3 F 04/11/17 14:00 Pulse Rate 113 H 04/11/17 14:00 Respiratory Rate 22 04/11/17 14:00 Blood Pressure 104/71 04/11/17 14:00 O2 Sat by Pulse Oximetry (%) 96 04/11/17 11:00 GENERAL: The patient is awake, alert, and fully oriented, in no acute distress. cachectic HEAD: Normal with no signs of trauma. EYES: PERRL, extraocular movements intact, sclera anicteric, conjunctiva clear. ENT: Ears normal, oropharynx clear without exudates, moist mucous membranes. NECK: Trachea midline, full range of motion, supple. LUNGS: Breath sounds equal, clear to auscultation bilaterally, no wheezes, no crackles, no accessory muscle use. HEART: tachycardic. S1, S2 positive, Amanda 2/6 ABDOMEN: Soft, nontender, nondistended, normoactive bowel sounds, no guarding, no rebound. EXTREMITIES: 2+ pulses, warm, well-perfused, no edema. NEUROLOGICAL: Cranial nerves II through XII grossly intact. Normal speech, gait not observed. PSYCH: Normal mood, normal affect. SKIN: Warm, dry, normal turgor, no rashes or lesions noted CBCD WBC 2.3 K/mm3 (4.0-10.0) L 04/10/17 08:00 RBC 2.54 M/mm3 (3.60-5.2) L 04/10/17 08:00 Hgb 9.3 GM/dL (10.7-15.3) L 04/10/17 08:00 Hct 25.8 % (32.4-45.2) L 04/10/17 08:00 MCV 101.4 fl (80-96) H 04/10/17 08:00 MCHC 35.9 g/dl (32.0-36.0) 04/10/17 08:00 RDW 14.8 % (11.6-15.6) 04/10/17 08:00 Plt Count 107 K/MM3 (134-434) L 04/10/17 08:00 MPV 7.0 fl (7.5-11.1) L 04/10/17 08:00 CMP Sodium 138 mmol/L (136-145) 04/10/17 08:00 Potassium 4.1 mmol/L (3.5-5.1) 04/10/17 08:00 Chloride 104 mmol/L (98-107) 04/10/17 08:00 Carbon Dioxide 28 mmol/L (21-32) 04/10/17 08:00 Anion Gap 6 (8-16) L 04/10/17 08:00 BUN 19 mg/dL (7-18) H 04/10/17 08:00 Creatinine 1.1 mg/dL (0.55-1.02) H 04/10/17 08:00 Creat Clearance w eGFR 43.23 (>60) 04/05/17 08:00 Random Glucose 101 mg/dL (74-106) 04/10/17 08:00 Calcium 9.5 mg/dL (8.5-10.1) 04/10/17 08:00 Total Bilirubin 0.5 mg/dL (0.2-1.0) D 04/05/17 08:00 AST 18 U/L (15-37) 04/05/17 08:00 ALT 18 U/L (12-78) 04/05/17 08:00 Alkaline Phosphatase 71 U/L (45-117) 04/05/17 08:00 Total Protein 6.3 g/dl (6.4-8.2) L 04/05/17 08:00 Albumin 3.4 g/dl (3.4-5.0) 04/05/17 08:00 Current Medications Generic Name Dose Route Start Last Admin Trade Name Jacquelyn PRN Reason Stop Dose Admin Acetaminophen 650 mg 04/03/17 12:32 04/09/17 19:51 Tylenol - PO 650 mg Q4H PRN Administration FEVER OR PAIN Aspirin 81 mg 04/02/17 10:00 04/11/17 09:37 Ecotrin - PO Not Given DAILY JOCELYNE Carvedilol 3.125 mg 04/03/17 12:32 04/11/17 09:30 Coreg - PO 3.125 mg BID JOCELYNE Administration Sodium Chloride 1,000 mls @ 75 mls/hr 04/11/17 15:45 1/2 Normal Saline IV 04/12/17 05:04 ASDIR JOCELYNE Piperacillin Sod/Tazobactam 50 mls @ 100 mls/hr 04/11/17 18:00 Sod 3.375 gm/ Dextrose IVPB Q8H-IV JOCELYNE Protocol Levothyroxine Sodium 88 mcg 04/03/17 07:00 04/11/17 06:01 Synthroid - PO 88 mcg DAILY@0700 JOCELYNE Administration Lisinopril 2.5 mg 04/02/17 10:00 04/11/17 09:30 Prinivil PO 2.5 mg DAILY JOCELYNE Administration Lorazepam 0.5 mg 04/06/17 02:52 04/08/17 15:32 Ativan Injection - IVPUSH 0.5 mg Q6H PRN Administration ANXIETY Potassium Phos/Sodium Phos 1 packet 04/06/17 22:00 04/11/17 14:14 Phos-Nak Packet - PO Not Given BID [facility] Home Medications Medication Instructions Recorded Aspirin Coated [Ecotrin -] 81 mg PO DAILY #30 tablet.ec 01/03/14 Carvedilol [Coreg -] 3.125 mg PO BID #60 tablet 01/03/14 Levothyroxine [Synthroid -] 100 mcg PO DAILY@0700 #30 tablet 01/03/14 Lisinopril [Prinivil] 2.5 mg PO DAILY #30 tablet 01/03/14 Atorvastatin Ca [Lipitor] 10 mg PO HS 04/01/17 Clopidogrel Bisulfate [Plavix -] 75 mg PO DAILY 04/01/17 Folic Acid 1 mg PO DAILY 04/01/17 Patient is a 82 y/o F w/PMHx of hypothyroidism, HTN, CAD (s/p stent placement 2 years ago), former smoker (quit 2 months ago) presented to the ER from PCP's office for AMS and frequent falls. # UTI , patient is not not taking anything orally , switched po antibiotic to IV Zosyn as per ID , Ua, urine culture is ordered as per ID. # Dementia back to baseline # Pancytopenia stable and slightly improved # CHF (congestive heart failure), stable continue lasix # HTN (hypertension) continue coreg and lisinopril #Hx of Hypothyroidism continue TSH low and FT4 high, continue 88mcg Discharge to [facility] when medically stable. Patient is not eating, swallowing evaluation and IVF initiated. Visit type - Emergency Visit Emergency Visit: Yes ED Registration Date: 04/01/17 Care time: The patient presented to the Emergency Department on the above date and was hospitalized for further evaluation of their emergent condition. - New Patient This patient is new to me today: No - Critical Care Critical Care patient: No
[2017-04-11] MEDS ORDERED: PIPERACILLIN/TAZOBACTAM 3.375 GM VIAL IVPB ONE (17:17)
[2017-04-11] MEDS ORDERED: DEXTROSE 5%-WATER - 50 ML IVPB ONE (17:18)
[2017-04-11] MEDS: PIPERACILLIN/TAZOB 3.375 GM 3.375 GM in DEXTROSE 5%-WATER - 50 ML IVPB SCH (17:30)
[2017-04-11] MEDS: ACETAMINOPHEN 325 MG TABLET (FP) PO PRN (18:39)
[2017-04-12] MEDS ORDERED: PIPERACILLIN/TAZOBACTAM 3.375 GM VIAL IVPB ONE ×3 (01:39→17:33)
[2017-04-12] MEDS ORDERED: DEXTROSE 5%-WATER - 50 ML IVPB ONE ×3 (01:40→17:34)
[2017-04-12] MEDS: PIPERACILLIN/TAZOB 3.375 GM 3.375 GM in DEXTROSE 5%-WATER - 50 ML IVPB SCH ×3 (01:55→18:31)
[2017-04-12] MEDS: CARVEDILOL 3.125 MG TABLET (FP) PO SCH ×2 (03:42→12:17)
[2017-04-12] MEDS: NAPH,MB-DB/K PH,MBDB POWDER PACKET PO SCH ×2 (03:46→12:17)
[2017-04-12] MEDS: LEVOTHYROXINE NA 88 MCG TABLET (FP) PO SCH ×2 (06:22→06:47)
--- NOTE | 2017-04-12 11:23 | CONSULT ---
Admitting History and Physical - Primary Care Physician PCP: Kenan Francis - Admission History of Present Illness: Patient is a 82 y/o F w/PMHx of hypothyroidism, HTN, CAD (s/p stent placement 2 years ago), former smoker (quit 2 months ago) presented to the ER from PCP's office for AMS and frequent falls. UTI Poor PO intake/poor acceptance of Po medication Had been quite agitated, given Ativan. Lethargy over last few days, with congestion, requiring suctioning this am. Selected Entries 04/08/17 04/08/17 04/08/17 06:00 15:05 18:45 Temperature 97.9 F 98 F 98.4 F 04/08/17 04/09/17 04/09/17 22:10 06:00 10:00 Temperature 98.2 F 97.4 F L 97.2 F L 04/09/17 04/09/17 04/10/17 15:18 19:04 01:59 Temperature 98.2 F 102.0 F H 97.7 F 04/10/17 04/10/17 04/10/17 06:53 10:00 14:51 Temperature 98 F 98.9 F 98.7 F 04/10/17 04/11/17 04/11/17 18:00 02:00 06:03 Temperature 98.3 F 98.1 F 98.5 F 04/11/17 04/11/17 04/11/17 09:12 11:57 14:00 Temperature 98.8 F 99.6 F 98.3 F 04/11/17 04/11/17 04/12/17 18:00 18:07 06:00 Temperature 100.3 F H 100.3 F H 99.0 F Laboratory Tests 04/08/17 04/09/17 04/10/17 06:00 06:30 08:00 WBC 2.4 L 2.5 L 2.3 L History Source: Medical Record Limitations to Obtaining History: Dementia - Past Medical History Cardiovascular: Yes: CHF, HTN Pulmonary: Yes: COPD Endocrine: Yes: Hypothyroidism - Smoking History Smoking history: Former smoker Have you smoked in the past 12 months: Yes Aproximately how many cigarettes per day: 20 If you are a former smoker, when did you quit?: 01/2017 - Alcohol/Substance Use Hx Alcohol Use: No History - Admission Reason For Visit: PANCYTOPENIA / ALTERED MENTAL STATUS - Diagnostics X-ray: Report Reviewed CT Scan: Report Reviewed MRI: Report Reviewed - General Mental Status: Awake and Alert, Combative, Confused Attention: Distractible, Mild Impairment Ability to Follow Directions: Fair - Hearing Hearing: Functional Hearing Aide: No Speech Evaluation - Communication Primary Language: [place] Oral Expression Ability: Yes: Mild Impairment - Speech Production Able to Make Needs Known: Yes: Mildly Impaired Intelligibility: Yes: Mildly Impaired - Speech Characteristics Voice Loudness: Mildly Soft/Quiet Voice Pitch: Yes: Normal Voice Phonatory-based Quality: Yes: Vocal Wetness (Pt with wet, gurgly vocal quality, c/w aspiration of secretions. Voice improved with oropharyngeal suctioning.) Nasal Resonance: Hypernasal (mild) Articulation: Yes: Precise - Language/Verbal Expression Able to Communicate Wants and Needs: Yes: WNL - Swallow Evaluation/Bedside Assessment Current Nutritional Intake: Soft, Thin Liquids Oral Secretions: Yes: Copious Secretions (posterior pharynx/larynx suspected with vocal wetness) Facial Symmetry at Rest: Symmetrical Laryngeal Movement: Able to Palpate (swallow reflex noted on saliva. Adamently refused all PO trials.) Coughing/Throat Clear: Yes (on saliva) Change in Voice: Yes (on saliva) Recommendations - Speech Evaluation, Impression/Plan Impression: Pt with wet, gurgly vocal quality, c/w aspiration of secretions. Voice improved with deep oropharyngeal suctioning. Occasional cough/rare swallow reflex noted on saliva. Adamently refused all PO trials. Suspect poor sensation resulting in aspiration on secretions. - Dysphagia Impressions/Plan Swallowing Skills: Impaired *Silent aspiration: cannot be R/O at bedside Recommendations: GI Consult (PEG? JT?), Palliative Care (Pt's end of life wishes. Pt is a full code.) - Recommendations Diet Consistency: NPO (not accepting PO trials and likely aspirating on pt's own secretions.)
[2017-04-12] MEDS: ASPIRIN COATED 81 MG TABLET.EC PO SCH (12:17)
[2017-04-12] MEDS: LISINOPRIL 5 MG TABLET (FP) PO SCH (12:17)
--- NOTE | 2017-04-12 16:00 | PN ---
Progress Note, Physician History of Present Illness: stable events over the weekend noted - Current Medication List Current Medications: Active Medications Acetaminophen (Tylenol -) 650 mg PO Q4H PRN PRN Reason: FEVER OR PAIN Last Admin: 04/11/17 18:39 Dose: 650 mg Aspirin (Ecotrin -) 81 mg PO DAILY [facility] Last Admin: 04/12/17 12:17 Dose: Not Given Carvedilol (Coreg -) 3.125 mg PO BID [facility] Last Admin: 04/12/17 12:17 Dose: Not Given Piperacillin Sod/Tazobactam (Sod 3.375 gm/ Dextrose) 50 mls @ 100 mls/hr IVPB Q8H-IV JOCELYNE PRN Reason: Protocol Last Admin: 04/12/17 12:14 Dose: 100 mls/hr Levothyroxine Sodium (Synthroid -) 88 mcg PO DAILY@0700 [facility] Last Admin: 04/12/17 06:47 Dose: Not Given Lisinopril (Prinivil) 2.5 mg PO DAILY [facility] Last Admin: 04/12/17 12:17 Dose: Not Given Potassium Phos/Sodium Phos (Phos-Nak Packet -) 1 packet PO BID [facility] Last Admin: 04/12/17 12:17 Dose: Not Given - Objective Vital Signs: Vital Signs Temperature 97.6 F 04/12/17 13:13 Pulse Rate 100 H 04/12/17 14:00 Respiratory Rate 18 04/12/17 14:00 Blood Pressure 152/65 04/12/17 13:13 O2 Sat by Pulse Oximetry (%) 93 L 04/12/17 09:00 Constitutional: Yes: No Distress, Calm Cardiovascular: Yes: Regular Rate and Rhythm Respiratory: Yes: Regular, CTA Bilaterally Gastrointestinal: Yes: Normal Bowel Sounds, Soft Musculoskeletal: Yes: WNL Extremities: Yes: WNL Labs: CBC, BMP 04/10/17 08:00 04/10/17 08:00 INR, PTT INR 1.05 (0.82-1.09) 04/01/17 14:56 Assessment/Plan Problem List - Problems (1) UTI (urinary tract infection) Code(s): N39.0 - URINARY TRACT INFECTION, SITE NOT SPECIFIED (2) Dementia Code(s): F03.90 - UNSPECIFIED DEMENTIA WITHOUT BEHAVIORAL DISTURBANCE (3) Pancytopenia Code(s): D61.818 - OTHER PANCYTOPENIA (4) CHF (congestive heart failure) Code(s): I50.9 - HEART FAILURE, UNSPECIFIED Qualifiers: Congestive heart failure type: unspecified congestive heart failure type Congestive heart failure chronicity: chronic Qualified Code(s): I50.9 - Heart failure, unspecified (5) HTN (hypertension) Code(s): I10 - ESSENTIAL (PRIMARY) HYPERTENSION (6) Hypothyroidism Code(s): E03.9 - HYPOTHYROIDISM, UNSPECIFIED plan continue abx await for cx reports
--- NOTE | 2017-04-12 17:15 | PN ---
Progress Note (short form) - Note Progress Note: Patient is lethargic, doesn't want to eat anything. Temperature 97.6 F 04/12/17 13:13 Pulse Rate 100 H 04/12/17 14:00 Respiratory Rate 18 04/12/17 14:00 Blood Pressure 152/65 04/12/17 13:13 O2 Sat by Pulse Oximetry (%) 93 L 04/12/17 09:00 GENERAL: The patient is awake, alert, and fully oriented, in no acute distress. cachectic HEAD: Normal with no signs of trauma. EYES: PERRL, extraocular movements intact, sclera anicteric, conjunctiva clear. ENT: Ears normal, oropharynx clear without exudates, moist mucous membranes. NECK: Trachea midline, full range of motion, supple. LUNGS: Breath sounds equal, decreased BS bilaterally, positive for crackles at the basis , no accessory muscle use. HEART: tachycardic. S1, S2 positive, Amanda 2/6 ABDOMEN: Soft, nontender, nondistended, normoactive bowel sounds, no guarding, no rebound. EXTREMITIES: 2+ pulses, warm, well-perfused, no edema. NEUROLOGICAL: Cranial nerves II through XII grossly intact. Normal speech, gait not observed. PSYCH: lethargic SKIN: Warm, dry, normal turgor, no rashes or lesions noted CBCD WBC 2.3 K/mm3 (4.0-10.0) L 04/10/17 08:00 RBC 2.54 M/mm3 (3.60-5.2) L 04/10/17 08:00 Hgb 9.3 GM/dL (10.7-15.3) L 04/10/17 08:00 Hct 25.8 % (32.4-45.2) L 04/10/17 08:00 MCV 101.4 fl (80-96) H 04/10/17 08:00 MCHC 35.9 g/dl (32.0-36.0) 04/10/17 08:00 RDW 14.8 % (11.6-15.6) 04/10/17 08:00 Plt Count 107 K/MM3 (134-434) L 04/10/17 08:00 MPV 7.0 fl (7.5-11.1) L 04/10/17 08:00 CMP Sodium 138 mmol/L (136-145) 04/10/17 08:00 Potassium 4.1 mmol/L (3.5-5.1) 04/10/17 08:00 Chloride 104 mmol/L (98-107) 04/10/17 08:00 Carbon Dioxide 28 mmol/L (21-32) 04/10/17 08:00 Anion Gap 6 (8-16) L 04/10/17 08:00 BUN 19 mg/dL (7-18) H 04/10/17 08:00 Creatinine 1.1 mg/dL (0.55-1.02) H 04/10/17 08:00 Creat Clearance w eGFR 43.23 (>60) 04/05/17 08:00 Random Glucose 101 mg/dL (74-106) 04/10/17 08:00 Calcium 9.5 mg/dL (8.5-10.1) 04/10/17 08:00 Total Bilirubin 0.5 mg/dL (0.2-1.0) D 04/05/17 08:00 AST 18 U/L (15-37) 04/05/17 08:00 ALT 18 U/L (12-78) 04/05/17 08:00 Alkaline Phosphatase 71 U/L (45-117) 04/05/17 08:00 Total Protein 6.3 g/dl (6.4-8.2) L 04/05/17 08:00 Albumin 3.4 g/dl (3.4-5.0) 04/05/17 08:00 Current Medications Generic Name Dose Route Start Last Admin Trade Name Jacquelyn PRN Reason Stop Dose Admin Acetaminophen 650 mg 04/03/17 12:32 04/11/17 18:39 Tylenol - PO 650 mg Q4H PRN Administration FEVER OR PAIN Aspirin 81 mg 04/02/17 10:00 04/12/17 12:17 Ecotrin - PO Not Given DAILY JOCELYNE Carvedilol 3.125 mg 04/03/17 12:32 04/12/17 12:17 Coreg - PO Not Given BID JOCELYNE Piperacillin Sod/Tazobactam 50 mls @ 100 mls/hr 04/11/17 18:00 04/12/17 12:14 Sod 3.375 gm/ Dextrose IVPB 100 mls/hr Q8H-IV JOCELYNE Administration Protocol Levothyroxine Sodium 88 mcg 09/09/17 07:00 04/12/17 06:47 Synthroid - PO Not Given DAILY@0700 [facility] Lisinopril 2.5 mg 04/02/17 10:00 04/12/17 12:17 Prinivil PO Not Given DAILY [facility] Potassium Phos/Sodium Phos 1 packet 04/06/17 22:00 04/12/17 12:17 Phos-Nak Packet - PO Not Given BID [facility] Home Medications Medication Instructions Recorded Aspirin Coated [Ecotrin -] 81 mg PO DAILY #30 tablet.ec 01/03/14 Carvedilol [Coreg -] 3.125 mg PO BID #60 tablet 01/03/14 Levothyroxine [Synthroid -] 100 mcg PO DAILY@0700 #30 tablet 01/03/14 Lisinopril [Prinivil] 2.5 mg PO DAILY #30 tablet 01/03/14 Atorvastatin Ca [Lipitor] 10 mg PO HS 04/01/17 Clopidogrel Bisulfate [Plavix -] 75 mg PO DAILY 04/01/17 Folic Acid 1 mg PO DAILY 04/01/17 A/P: Patient is a 82 y/o F w/PMHx of hypothyroidism, HTN, CAD (s/p stent placement 2 years ago), former smoker (quit 2 months ago) presented to the ER from PCP's office for AMS and frequent falls. # UTI , patient is not not taking anything orally , switched po antibiotic to IV Zosyn as per ID , Ua, urine culture is ordered as per ID. # Pancytopenia stable and slightly improved # CHF (congestive heart failure), stable off lasix now # HTN (hypertension) switched from coreg to Lopressor IV since unable to swallow #Hx of Hypothyroidism continue TSH low and FT4 high, switched to IV Lovoxyl 44mcg Discharge to [facility] when medically stable. # Dementia back to baseline Patient is not eating, swallowing evaluation appreciated. started the patient on IV clinimax q24h possible might need GI for peg placement [employer] now, switched her po meds to IV Visit type - Emergency Visit Emergency Visit: Yes ED Registration Date: 04/01/17 Care time: The patient presented to the Emergency Department on the above date and was hospitalized for further evaluation of their emergent condition. - New Patient This patient is new to me today: No - Critical Care Critical Care patient: No - Discharge Referral Referred to [facility] No
[2017-04-12] MEDS: LEVOTHYROXINE SODIUM 100 MCG VIAL IVPUSH SCH (18:25)
[2017-04-12] MEDS: ASPIRIN 300 MG SUPP.RECT RC SCH (20:31)
[2017-04-12] MEDS: METOPROLOL TARTRATE 5 MG/5 ML VIAL IVPB SCH ×2 (20:34→23:55)
[2017-04-12] MEDS: AMINO ACIDS 4.25%/D5W 1,000 ML IV SCH (20:34)
[2017-04-12] MEDS: MULTIVIT INJ. ADULT COMBO WITH VIT K 1 COMBO 10 ML VIAL IV SCH (20:35)
[2017-04-13] MEDS ORDERED: DEXTROSE 5%-WATER - 50 ML IVPB ONE ×3 (01:08→18:21)
[2017-04-13] MEDS ORDERED: PIPERACILLIN/TAZOBACTAM 3.375 GM VIAL IVPB ONE ×3 (01:08→18:21)
[2017-04-13] MEDS: PIPERACILLIN/TAZOB 3.375 GM 3.375 GM in DEXTROSE 5%-WATER - 50 ML IVPB SCH ×3 (02:04→18:28)
[2017-04-13] MEDS: METOPROLOL TARTRATE 5 MG/5 ML VIAL IVPB SCH ×4 (03:58→21:36)
[2017-04-13] MEDS: LEVOTHYROXINE SODIUM 100 MCG VIAL IVPUSH SCH (06:58)
[2017-04-13] MEDS ORDERED: PT OWN MED DRAWER 7, Y5N ONE ×2 (08:54→17:08)
--- NOTE | 2017-04-13 11:58 | PN ---
Progress Note, DERMATOLOGY NURSE - Note Progress Note: Vocal wetness, c/w aspiration, requiring frequent suctioning. Per nursing, chest seems clear. 04/10/17 CXR No acute process. Selected Entries 04/12/17 04/12/17 04/12/17 06:00 13:13 18:00 Breakfast Temperature 99.0 F 97.6 F 97.9 F 04/12/17 04/13/17 04/13/17 20:30 06:32 09:32 Breakfast NPO Temperature 98.1 F 97.8 F Laboratory Tests 04/10/17 08:00 WBC 2.3 L Pt was refusing PO, now NPO because of likely aspirations on secretions. Palliative care consult regarding end of life decisions.
--- NOTE | 2017-04-13 12:56 | PN ---
Progress Note, Physician Chief Complaint: Unable to obtain - Current Medication List Current Medications: Active Medications Aspirin (Asa -) 300 mg RC DAILY [facility] Last Admin: 04/12/17 20:31 Dose: 300 mg Piperacillin Sod/Tazobactam (Sod 3.375 gm/ Dextrose) 50 mls @ 100 mls/hr IVPB Q8H-IV [facility] PRN Reason: Protocol Last Admin: 04/13/17 10:35 Dose: 100 mls/hr Amino Acids (Clinimix -) 1,000 mls @ 42 mls/hr IV DAILY [facility] Last Admin: 04/12/17 20:34 Dose: 42 mls/hr Levothyroxine Sodium (Synthroid Injection -) 44 mcg IVPUSH DAILY@0700 [facility] Last Admin: 04/13/17 06:58 Dose: 44 mcg Metoprolol Tartrate (Lopressor Injection -) 2.5 mg IVPB Q6H-IV [facility] Last Admin: 04/13/17 09:30 Dose: 2.5 mg Multivitamins/Minerals (Infuvite Adult -) 10 ml IV DAILY [facility] Last Admin: 04/12/17 20:35 Dose: 10 ml - Objective Vital Signs: Vital Signs Temperature 36.6 C 04/13/17 06:32 Pulse Rate 96 H 04/13/17 09:30 Respiratory Rate 20 04/13/17 06:32 Blood Pressure 138/76 04/13/17 09:30 O2 Sat by Pulse Oximetry (%) 95 04/12/17 22:00 Constitutional: Yes: Other (lethargic but arousable) Cardiovascular: Yes: Regular Rate and Rhythm. No: Gallop, Murmur, Rub Respiratory: Yes: Regular, On Nasal O2, Rhonchi (diffuse). No: CTA Bilaterally , Rales, Wheezes Gastrointestinal: Yes: Normal Bowel Sounds, Soft. No: Distention, Tenderness Extremities: Yes: WNL Edema: No Labs: CBC, BMP 04/10/17 08:00 04/10/17 08:00 INR, PTT INR 1.05 (0.82-1.09) 04/01/17 14:56 Problem List - Problems (1) UTI (urinary tract infection) Code(s): N39.0 - URINARY TRACT INFECTION, SITE NOT SPECIFIED (2) Dementia Code(s): F03.90 - UNSPECIFIED DEMENTIA WITHOUT BEHAVIORAL DISTURBANCE (3) Pancytopenia Code(s): D61.818 - OTHER PANCYTOPENIA (4) CHF (congestive heart failure) Code(s): I50.9 - HEART FAILURE, UNSPECIFIED Qualifiers: Congestive heart failure type: unspecified congestive heart failure type Congestive heart failure chronicity: chronic Qualified Code(s): I50.9 - Heart failure, unspecified (5) HTN (hypertension) Code(s): I10 - ESSENTIAL (PRIMARY) HYPERTENSION (6) Hypothyroidism Code(s): E03.9 - HYPOTHYROIDISM, UNSPECIFIED (7) Aspiration pneumonia Code(s): J69.0 - PNEUMONITIS DUE TO INHALATION OF FOOD AND VOMIT Assessment/Plan (1) Aspiration pneumonia Assessment/Plan: -patient now aspirating -placed on zosyn -ID following -made npo -speech therapy following -palliative care consult Code(s): N39.0 - URINARY TRACT INFECTION, SITE NOT SPECIFIED (2) Dementia Assessment/Plan: -worsened secondary to aspiration Code(s): F03.90 - UNSPECIFIED DEMENTIA WITHOUT BEHAVIORAL DISTURBANCE (3) Pancytopenia Assessment/Plan: -stable and slightly improved -continue to monitor Code(s): D61.818 - OTHER PANCYTOPENIA (4) CHF (congestive heart failure) Assessment/Plan: -not in exacerbation Code(s): I50.9 - HEART FAILURE, UNSPECIFIED Qualifiers: Congestive heart failure type: unspecified congestive heart failure type Congestive heart failure chronicity: chronic Qualified Code(s): I50.9 - Heart failure, unspecified (5) HTN (hypertension) Assessment/Plan: -continue IV metoprolol Code(s): I10 - ESSENTIAL (PRIMARY) HYPERTENSION (6) Hypothyroidism Assessment/Plan: -continue IV synthroid Code(s): E03.9 - HYPOTHYROIDISM, UNSPECIFIED
[2017-04-13] MEDS: ASPIRIN 300 MG SUPP.RECT RC SCH (13:54)
--- NOTE | 2017-04-13 14:38 | PN ---
Progress Note, Physician History of Present Illness: altered mental status lot of secretions npo - Current Medication List Current Medications: Active Medications Aspirin (Asa -) 300 mg RC DAILY [facility] Last Admin: 04/13/17 13:54 Dose: 300 mg Piperacillin Sod/Tazobactam (Sod 3.375 gm/ Dextrose) 50 mls @ 100 mls/hr IVPB Q8H-IV [facility] PRN Reason: Protocol Last Admin: 04/13/17 10:35 Dose: 100 mls/hr Amino Acids (Clinimix -) 1,000 mls @ 42 mls/hr IV DAILY [facility] Last Admin: 04/12/17 20:34 Dose: 42 mls/hr Levothyroxine Sodium (Synthroid Injection -) 44 mcg IVPUSH DAILY@0700 [facility] Last Admin: 04/13/17 06:58 Dose: 44 mcg Metoprolol Tartrate (Lopressor Injection -) 2.5 mg IVPB Q6H-IV [facility] Last Admin: 04/13/17 09:30 Dose: 2.5 mg Multivitamins/Minerals (Infuvite Adult -) 10 ml IV DAILY [facility] Last Admin: 04/12/17 20:35 Dose: 10 ml - Objective Vital Signs: Vital Signs Temperature 97.8 F 04/13/17 06:32 Pulse Rate 96 H 04/13/17 09:30 Respiratory Rate 16 04/13/17 09:00 Blood Pressure 138/76 04/13/17 09:30 O2 Sat by Pulse Oximetry (%) 95 04/12/17 22:00 Constitutional: Yes: No Distress, Calm Cardiovascular: Yes: Regular Rate and Rhythm Respiratory: Yes: On Nasal O2, Poor Air Entry, Rhonchi, Other Gastrointestinal: Yes: Normal Bowel Sounds, Soft Musculoskeletal: Yes: WNL Extremities: Yes: WNL Neurological: Yes: Alert, Oriented Psychiatric: Yes: Alert Labs: CBC, BMP 04/10/17 08:00 04/10/17 08:00 INR, PTT INR 1.05 (0.82-1.09) 04/01/17 14:56 Assessment/Plan Problem List - Problems (1) UTI (urinary tract infection) Code(s): N39.0 - URINARY TRACT INFECTION, SITE NOT SPECIFIED (2) Dementia Code(s): F03.90 - UNSPECIFIED DEMENTIA WITHOUT BEHAVIORAL DISTURBANCE (3) Pancytopenia Code(s): D61.818 - OTHER PANCYTOPENIA (4) CHF (congestive heart failure) Code(s): I50.9 - HEART FAILURE, UNSPECIFIED Qualifiers: Congestive heart failure type: unspecified congestive heart failure type Congestive heart failure chronicity: chronic Qualified Code(s): I50.9 - Heart failure, unspecified (5) HTN (hypertension) Code(s): I10 - ESSENTIAL (PRIMARY) HYPERTENSION (6) Hypothyroidism Code(s): E03.9 - HYPOTHYROIDISM, UNSPECIFIED Aspiration pneumonia Code(s): J69.0 - PNEUMONITIS DUE TO INHALATION OF FOOD AND VOMIT plan continue abx suctioning rest as per primary close watch
[2017-04-13] MEDS: AMINO ACIDS 4.25%/D5W 1,000 ML IV SCH (20:32)
[2017-04-13] MEDS: MULTIVIT INJ. ADULT COMBO WITH VIT K 1 COMBO 10 ML VIAL IV SCH (20:39)
[2017-04-14] MEDS ORDERED: PIPERACILLIN/TAZOBACTAM 3.375 GM VIAL IVPB ONE ×3 (00:47→17:48)
[2017-04-14] MEDS ORDERED: DEXTROSE 5%-WATER - 50 ML IVPB ONE ×3 (00:48→17:48)
[2017-04-14] MEDS: PIPERACILLIN/TAZOB 3.375 GM 3.375 GM in DEXTROSE 5%-WATER - 50 ML IVPB SCH ×3 (02:03→19:18)
[2017-04-14] MEDS: METOPROLOL TARTRATE 5 MG/5 ML VIAL IVPB SCH ×4 (02:28→20:30)
[2017-04-14] MEDS: LEVOTHYROXINE SODIUM 100 MCG VIAL IVPUSH SCH (06:58)
[2017-04-14 08:35] LABS: BASOPHIL 0.2 % (0-2.0); EOSINOPHIL 2.9 % (0-4.5); MCH 36.6 pg (25.7-33.7); MCHC 35.9 g/dl (32.0-36.0); MEAN PLT VOLUME 7.4 fl (7.5-11.1); NEUTROPHILS 61.6 % (42.8-82.8); PLATELET COUNT 118 K/MM3 (134-434); RDW 15.1 % (11.6-15.6); WHITE BLOOD COUNT 2.6 K/mm3 (4.0-10.0)
[2017-04-14 09:23] LABS: ANION GAP 12 (8-16); CALCIUM 9.2 mg/dL (8.5-10.1); CO2 25 mmol/L (21-32); CREATININE 1.2 mg/dL (0.55-1.02); GLUCOSE,RANDOM 129 mg/dL (74-106); MAGNESIUM 2.3 mg/dL (1.8-2.4); PHOSPHOROUS 1.9 mg/dL (2.5-4.9)
[2017-04-14] MEDS ORDERED: PT OWN MED DRAWER 7, Y5N ONE ×2 (09:34→21:06)
--- NOTE | 2017-04-14 11:13 | PN ---
Progress Note, Physician Chief Complaint: Patient more awake and interactive today, cannot obtain subjective but says ok. - Current Medication List Current Medications: Active Medications Acetaminophen (Tylenol Suppository -) 650 mg [place] Q4H PRN PRN Reason: FEVER OR PAIN Aspirin (Asa -) 300 mg RC DAILY [facility] Last Admin: 04/13/17 13:54 Dose: 300 mg Piperacillin Sod/Tazobactam (Sod 3.375 gm/ Dextrose) 50 mls @ 100 mls/hr IVPB Q8H-IV [facility] PRN Reason: Protocol Last Admin: 04/14/17 09:56 Dose: 100 mls/hr Amino Acids (Clinimix -) 1,000 mls @ 42 mls/hr IV DAILY [facility] Last Admin: 04/13/17 20:32 Dose: 42 mls/hr Potassium Chloride (Potassium Chloride 10 Meq Premix Ivpb -) 100 mls @ 100 mls/ hr IVPB Q60M [facility] Stop: 04/14/17 13:44 Potassium Phosphate 16 mm/ (Dextrose) 255.3333 mls @ 62.5 mls/hr IVPB ONCE ONE Stop: 04/14/17 14:45 Levothyroxine Sodium (Synthroid Injection -) 44 mcg IVPUSH DAILY@0700 [facility] Last Admin: 04/14/17 06:58 Dose: 44 mcg Metoprolol Tartrate (Lopressor Injection -) 2.5 mg IVPB Q6H-IV [facility] Last Admin: 04/14/17 09:53 Dose: 2.5 mg Multivitamins/Minerals (Infuvite Adult -) 10 ml IV DAILY [facility] Last Admin: 04/13/17 20:39 Dose: 10 ml - Objective Vital Signs: Vital Signs Temperature 38.4 C H 04/14/17 06:00 Pulse Rate 94 H 04/14/17 09:53 Respiratory Rate 04/13/17 21:00 Blood Pressure 117/63 04/14/17 09:53 O2 Sat by Pulse Oximetry (%) 94 L 04/13/17 21:00 Constitutional: Yes: No Distress, Calm, Thin Cardiovascular: Yes: Regular Rate and Rhythm. No: Gallop, Murmur, Rub Respiratory: Yes: Regular, On Nasal O2, Other (upper airway gurgling). No: Rales, Rhonchi, Wheezes Gastrointestinal: Yes: Normal Bowel Sounds, Soft. No: Distention, Tenderness Extremities: Yes: WNL Edema: No Labs: CBC, BMP 04/14/17 07:00 04/14/17 07:00 INR, PTT INR 1.05 (0.82-1.09) 04/01/17 14:56 Problem List - Problems (1) UTI (urinary tract infection) Code(s): N39.0 - URINARY TRACT INFECTION, SITE NOT SPECIFIED (2) Dementia Code(s): F03.90 - UNSPECIFIED DEMENTIA WITHOUT BEHAVIORAL DISTURBANCE (3) Pancytopenia Code(s): D61.818 - OTHER PANCYTOPENIA (4) CHF (congestive heart failure) Code(s): I50.9 - HEART FAILURE, UNSPECIFIED Qualifiers: Congestive heart failure type: unspecified congestive heart failure type Congestive heart failure chronicity: chronic Qualified Code(s): I50.9 - Heart failure, unspecified (5) HTN (hypertension) Code(s): I10 - ESSENTIAL (PRIMARY) HYPERTENSION (6) Hypothyroidism Code(s): E03.9 - HYPOTHYROIDISM, UNSPECIFIED (7) Aspiration pneumonia Code(s): J69.0 - PNEUMONITIS DUE TO INHALATION OF FOOD AND VOMIT Assessment/Plan (1) Aspiration pneumonia Assessment/Plan: -patient with fever overnight -continue zosyn -check chest x-ray -continue suctioning Code(s): N39.0 - URINARY TRACT INFECTION, SITE NOT SPECIFIED (2) Dementia Assessment/Plan: -mental status improved today Code(s): F03.90 - UNSPECIFIED DEMENTIA WITHOUT BEHAVIORAL DISTURBANCE (3) Pancytopenia Assessment/Plan: -stable and slightly improved -continue to monitor Code(s): D61.818 - OTHER PANCYTOPENIA (4) CHF (congestive heart failure) Assessment/Plan: -not in exacerbation Code(s): I50.9 - HEART FAILURE, UNSPECIFIED Qualifiers: Congestive heart failure type: unspecified congestive heart failure type Congestive heart failure chronicity: chronic Qualified Code(s): I50.9 - Heart failure, unspecified (5) HTN (hypertension) Assessment/Plan: -continue IV metoprolol Code(s): I10 - ESSENTIAL (PRIMARY) HYPERTENSION (6) Hypothyroidism Assessment/Plan: -continue IV synthroid Code(s): E03.9 - HYPOTHYROIDISM, UNSPECIFIED
--- NOTE | 2017-04-14 11:14 | PN ---
Progress Note, [employer] - Note Progress Note: 04/10/17 CXR No acute process. Selected Entries 04/12/17 04/12/17 04/12/17 06:00 13:13 18:00 Breakfast Temperature 99.0 F 97.6 F 97.9 F 04/12/17 04/13/17 04/13/17 20:30 06:32 09:32 Breakfast NPO Temperature 98.1 F 97.8 F Laboratory Tests 04/10/17 08:00 WBC 2.3 L Selected Entries 04/13/17 04/13/17 04/13/17 06:32 14:27 17:05 Supper NPO Temperature 97.8 F 100.4 F H 100.6 F H 04/14/17 04/14/17 03:00 06:00 Supper Temperature 100.8 F H 101.1 F H Laboratory Tests 04/14/17 07:00 WBC 2.6 L Intermittent vocal wetness, c/w aspiration, requiring less suctioning. Pt NPO because of likely aspirations on secretions. Appreciate Palliative care consult regarding end of life decisions.
[2017-04-14] MEDS ORDERED: POTASSIUM PHOSPHATE 16 MM in DEXTROSE 5%-WATER - 250 ML IVPB ONE (11:15)
[2017-04-14] MEDS: ASPIRIN 300 MG SUPP.RECT RC SCH (11:28)
[2017-04-14] MEDS: KCL 10 MEQ IVPB 100 ML IVPB SCH ×3 (13:58→17:51)
--- NOTE | 2017-04-14 16:00 | PN ---
Progress Note, Physician History of Present Illness: mental status better more awake - Current Medication List Current Medications: Active Medications Acetaminophen (Tylenol Suppository -) 650 mg [place] Q4H PRN PRN Reason: FEVER OR PAIN Aspirin (Asa -) 300 mg RC DAILY [facility] Last Admin: 04/14/17 11:28 Dose: 300 mg Piperacillin Sod/Tazobactam (Sod 3.375 gm/ Dextrose) 50 mls @ 100 mls/hr IVPB Q8H-IV [facility] PRN Reason: Protocol Last Admin: 04/14/17 09:56 Dose: 100 mls/hr Amino Acids (Clinimix -) 1,000 mls @ 42 mls/hr IV DAILY [facility] Last Admin: 04/13/17 20:32 Dose: 42 mls/hr Levothyroxine Sodium (Synthroid Injection -) 44 mcg IVPUSH DAILY@0700 [facility] Last Admin: 04/14/17 06:58 Dose: 44 mcg Metoprolol Tartrate (Lopressor Injection -) 2.5 mg IVPB Q6H-IV [facility] Last Admin: 04/14/17 15:28 Dose: 2.5 mg Multivitamins/Minerals (Infuvite Adult -) 10 ml IV DAILY [facility] Last Admin: 04/13/17 20:39 Dose: 10 ml - Objective Vital Signs: Vital Signs Temperature 100.2 F H 04/14/17 13:59 Pulse Rate 96 H 04/14/17 15:28 Respiratory Rate 22 04/14/17 13:59 Blood Pressure 140/70 04/14/17 15:28 O2 Sat by Pulse Oximetry (%) 94 L 04/13/17 21:00 Constitutional: Yes: No Distress, Calm Cardiovascular: Yes: Regular Rate and Rhythm Respiratory: Yes: Regular, Rhonchi Gastrointestinal: Yes: Normal Bowel Sounds, Soft Musculoskeletal: Yes: WNL Extremities: Yes: WNL Neurological: Yes: Alert, Other Psychiatric: Yes: Other Labs: CBC, BMP 04/14/17 07:00 04/14/17 07:00 INR, PTT INR 1.05 (0.82-1.09) 04/01/17 14:56 Assessment/Plan Problem List - Problems (1) UTI (urinary tract infection) Code(s): N39.0 - URINARY TRACT INFECTION, SITE NOT SPECIFIED (2) Dementia Code(s): F03.90 - UNSPECIFIED DEMENTIA WITHOUT BEHAVIORAL DISTURBANCE (3) Pancytopenia Code(s): D61.818 - OTHER PANCYTOPENIA (4) CHF (congestive heart failure) Code(s): I50.9 - HEART FAILURE, UNSPECIFIED Qualifiers: Congestive heart failure type: unspecified congestive heart failure type Congestive heart failure chronicity: chronic Qualified Code(s): I50.9 - Heart failure, unspecified (5) HTN (hypertension) Code(s): I10 - ESSENTIAL (PRIMARY) HYPERTENSION (6) Hypothyroidism Code(s): E03.9 - HYPOTHYROIDISM, UNSPECIFIED Aspiration pneumonia Code(s): J69.0 - PNEUMONITIS DUE TO INHALATION OF FOOD AND VOMIT plan continue abx once patient stable will deescalte for now she needs it rest as per primary team
[2017-04-14] MEDS: AMINO ACIDS 4.25%/D5W 1,000 ML IV SCH ×3 (19:12→21:00)
[2017-04-14] MEDS: MULTIVIT INJ. ADULT COMBO WITH VIT K 1 COMBO 10 ML VIAL IV SCH ×2 (21:00→21:26)
[2017-04-14] MEDS: ACETAMINOPHEN 650 MG SUPP.RECT PR PRN (23:30)
[2017-04-15] MEDS ORDERED: DEXTROSE 5%-WATER - 50 ML IVPB ONE ×2 (00:34→18:30)
[2017-04-15] MEDS ORDERED: PIPERACILLIN/TAZOBACTAM 3.375 GM VIAL IVPB ONE ×3 (00:34→18:30)
[2017-04-15] MEDS: PIPERACILLIN/TAZOB 3.375 GM 3.375 GM in DEXTROSE 5%-WATER - 50 ML IVPB SCH ×3 (02:12→18:33)
[2017-04-15] MEDS: METOPROLOL TARTRATE 5 MG/5 ML VIAL IVPB SCH ×4 (02:21→21:08)
[2017-04-15] MEDS ORDERED: PT OWN MED DRAWER 7, Y5N ONE (06:10)
[2017-04-15] MEDS: LEVOTHYROXINE SODIUM 100 MCG VIAL IVPUSH SCH (06:19)
[2017-04-15 08:16] LABS: BASOPHIL 0.4 % (0-2.0); EOSINOPHIL 6.4 % (0-4.5); MCH 36.2 pg (25.7-33.7); MCHC 35.3 g/dl (32.0-36.0); MEAN CELL VOLUME 102.5 fl (80-96); MEAN PLT VOLUME 7.3 fl (7.5-11.1); PLATELET COUNT 113 K/MM3 (134-434); WHITE BLOOD COUNT 2.9 K/mm3 (4.0-10.0)
[2017-04-15 08:39] LABS: ANION GAP 7 (8-16); CALCIUM 8.7 mg/dL (8.5-10.1); CO2 24 mmol/L (21-32); CREATININE 1.1 mg/dL (0.55-1.02); GLUCOSE,RANDOM 110 mg/dL (74-106); MAGNESIUM 1.9 mg/dL (1.8-2.4); PHOSPHOROUS 2.4 mg/dL (2.5-4.9)
[2017-04-15] MEDS ORDERED: DEXTROSE 5%-WATER - 100 ML IVPB ONE (10:34)
[2017-04-15] MEDS: MULTIVIT INJ. ADULT COMBO WITH VIT K 1 COMBO 10 ML VIAL IV SCH ×2 (11:27→21:21)
[2017-04-15] MEDS: AMINO ACIDS 4.25%/D5W 1,000 ML IV SCH ×2 (11:29→21:21)
[2017-04-15] MEDS: ASPIRIN 300 MG SUPP.RECT RC SCH (11:30)
--- NOTE | 2017-04-15 14:56 | PN ---
Progress Note, Physician History of Present Illness: more awake anxious - Current Medication List Current Medications: Active Medications Acetaminophen (Tylenol Suppository -) 650 mg [place] Q4H PRN PRN Reason: FEVER OR PAIN Last Admin: 04/14/17 23:30 Dose: 650 mg Aspirin (Asa -) 300 mg RC DAILY [facility] Last Admin: 04/15/17 11:30 Dose: 300 mg Piperacillin Sod/Tazobactam (Sod 3.375 gm/ Dextrose) 50 mls @ 100 mls/hr IVPB Q8H-IV [facility] PRN Reason: Protocol Last Admin: 04/15/17 10:36 Dose: 100 mls/hr Amino Acids (Clinimix -) 1,000 mls @ 42 mls/hr IV DAILY [facility] Last Admin: 04/15/17 11:29 Dose: Not Given Levothyroxine Sodium (Synthroid Injection -) 44 mcg IVPUSH DAILY@0700 [facility] Last Admin: 04/15/17 06:19 Dose: 44 mcg Metoprolol Tartrate (Lopressor Injection -) 2.5 mg IVPB Q6H-IV [facility] Last Admin: 04/15/17 11:31 Dose: 2.5 mg Multivitamins/Minerals (Infuvite Adult -) 10 ml IV DAILY [facility] Last Admin: 04/15/17 11:27 Dose: Not Given - Objective Vital Signs: Vital Signs Temperature 98.8 F 04/15/17 14:00 Pulse Rate 89 04/15/17 14:00 Respiratory Rate 20 04/15/17 14:00 Blood Pressure 145/92 04/15/17 14:00 O2 Sat by Pulse Oximetry (%) 96 04/14/17 21:00 Constitutional: Yes: No Distress, Anxious Eyes: Yes: Conjunctiva Clear HENT: Yes: Atraumatic, Normocephalic Cardiovascular: Yes: Regular Rate and Rhythm Respiratory: Yes: On Nasal O2, Rhonchi Gastrointestinal: Yes: Normal Bowel Sounds, Soft Musculoskeletal: Yes: Other Extremities: Yes: Other Neurological: Yes: Alert, Other Labs: CBC, BMP 04/15/17 07:30 04/15/17 07:30 INR, PTT INR 1.05 (0.82-1.09) 04/01/17 14:56 Assessment/Plan Problem List - Problems (1) UTI (urinary tract infection) Code(s): N39.0 - URINARY TRACT INFECTION, SITE NOT SPECIFIED (2) Dementia Code(s): F03.90 - UNSPECIFIED DEMENTIA WITHOUT BEHAVIORAL DISTURBANCE (3) Pancytopenia Code(s): D61.818 - OTHER PANCYTOPENIA (4) CHF (congestive heart failure) Code(s): I50.9 - HEART FAILURE, UNSPECIFIED Qualifiers: Congestive heart failure type: unspecified congestive heart failure type Congestive heart failure chronicity: chronic Qualified Code(s): I50.9 - Heart failure, unspecified (5) HTN (hypertension) Code(s): I10 - ESSENTIAL (PRIMARY) HYPERTENSION (6) Hypothyroidism Code(s): E03.9 - HYPOTHYROIDISM, UNSPECIFIED Aspiration pneumonia Code(s): J69.0 - PNEUMONITIS DUE TO INHALATION OF FOOD AND VOMIT plan continue abx hopefully by weekend will deescalate
[2017-04-15] MEDS ORDERED: POTASSIUM PHOSPHATE 16 MM in SODIUM CHLORIDE 250 ML IVPB ONE (15:20)
--- NOTE | 2017-04-15 15:24 | PN ---
Progress Note, Physician Chief Complaint: Patient mental status improved from earlier but stable from yesterday. Unable to obtain subjective but remains interactive. - Current Medication List Current Medications: Active Medications Acetaminophen (Tylenol Suppository -) 650 mg NJ Q4H PRN PRN Reason: FEVER OR PAIN Last Admin: 04/14/17 23:30 Dose: 650 mg Aspirin (Asa -) 300 mg RC DAILY [facility] Last Admin: 04/15/17 11:30 Dose: 300 mg Piperacillin Sod/Tazobactam (Sod 3.375 gm/ Dextrose) 50 mls @ 100 mls/hr IVPB Q8H-IV [facility] PRN Reason: Protocol Last Admin: 04/15/17 10:36 Dose: 100 mls/hr Amino Acids (Clinimix -) 1,000 mls @ 42 mls/hr IV DAILY [facility] Last Admin: 04/15/17 11:29 Dose: Not Given Levothyroxine Sodium (Synthroid Injection -) 44 mcg IVPUSH DAILY@0700 [facility] Last Admin: 04/15/17 06:19 Dose: 44 mcg Metoprolol Tartrate (Lopressor Injection -) 2.5 mg IVPB Q6H-IV [facility] Last Admin: 04/15/17 11:31 Dose: 2.5 mg Multivitamins/Minerals (Infuvite Adult -) 10 ml IV DAILY [facility] Last Admin: 04/15/17 11:27 Dose: Not Given - Objective Vital Signs: Vital Signs Temperature 37.1 C 04/15/17 14:00 Pulse Rate 89 04/15/17 14:00 Respiratory Rate 20 04/15/17 14:00 Blood Pressure 145/92 04/15/17 14:00 O2 Sat by Pulse Oximetry (%) 96 04/14/17 21:00 Constitutional: Yes: No Distress, Calm, Thin Cardiovascular: Yes: Regular Rate and Rhythm. No: Gallop, Murmur, Rub Respiratory: Yes: Regular, CTA Bilaterally, Other (upper airway gurgle, improved from yesterday). No: Rales, Rhonchi, Wheezes Gastrointestinal: Yes: Normal Bowel Sounds, Soft. No: Distention, Tenderness Extremities: Yes: WNL Edema: No Labs: CBC, BMP 04/15/17 07:30 04/15/17 07:30 INR, PTT INR 1.05 (0.82-1.09) 04/01/17 14:56 Problem List - Problems (1) UTI (urinary tract infection) Code(s): N39.0 - URINARY TRACT INFECTION, SITE NOT SPECIFIED (2) Dementia Code(s): F03.90 - UNSPECIFIED DEMENTIA WITHOUT BEHAVIORAL DISTURBANCE (3) Pancytopenia Code(s): D61.818 - OTHER PANCYTOPENIA (4) CHF (congestive heart failure) Code(s): I50.9 - HEART FAILURE, UNSPECIFIED Qualifiers: Congestive heart failure type: unspecified congestive heart failure type Congestive heart failure chronicity: chronic Qualified Code(s): I50.9 - Heart failure, unspecified (5) HTN (hypertension) Code(s): I10 - ESSENTIAL (PRIMARY) HYPERTENSION (6) Hypothyroidism Code(s): E03.9 - HYPOTHYROIDISM, UNSPECIFIED (7) Aspiration pneumonia Code(s): J69.0 - PNEUMONITIS DUE TO INHALATION OF FOOD AND VOMIT Assessment/Plan (1) Aspiration pneumonia Assessment/Plan: -ID following -continue zosyn -patient appears improved -continue npo Code(s): N39.0 - URINARY TRACT INFECTION, SITE NOT SPECIFIED (2) Dementia Assessment/Plan: -mental status stable -continue to monitor Code(s): F03.90 - UNSPECIFIED DEMENTIA WITHOUT BEHAVIORAL DISTURBANCE (3) Pancytopenia Assessment/Plan: -stable and slightly improved -continue to monitor Code(s): D61.818 - OTHER PANCYTOPENIA (4) CHF (congestive heart failure) Assessment/Plan: -not in exacerbation Code(s): I50.9 - HEART FAILURE, UNSPECIFIED Qualifiers: Congestive heart failure type: unspecified congestive heart failure type Congestive heart failure chronicity: chronic Qualified Code(s): I50.9 - Heart failure, unspecified (5) HTN (hypertension) Assessment/Plan: -continue IV metoprolol Code(s): I10 - ESSENTIAL (PRIMARY) HYPERTENSION (6) Hypothyroidism Assessment/Plan: -continue IV synthroid Code(s): E03.9 - HYPOTHYROIDISM, UNSPECIFIED (7) FEN -continue clinimix -replace potassium and phosphorus
[2017-04-15] MEDS: KCL 10 MEQ IVPB 100 ML IVPB SCH ×3 (16:00→18:17)
[2017-04-16] MEDS ORDERED: DEXTROSE 5%-WATER - 50 ML IVPB ONE ×3 (01:06→18:09)
[2017-04-16] MEDS ORDERED: PIPERACILLIN/TAZOBACTAM 3.375 GM VIAL IVPB ONE ×3 (01:06→18:09)
[2017-04-16] MEDS: PIPERACILLIN/TAZOB 3.375 GM 3.375 GM in DEXTROSE 5%-WATER - 50 ML IVPB SCH ×3 (01:34→18:52)
[2017-04-16] MEDS: METOPROLOL TARTRATE 5 MG/5 ML VIAL IVPB SCH ×4 (02:29→21:38)
[2017-04-16] MEDS: LEVOTHYROXINE SODIUM 100 MCG VIAL IVPUSH SCH (06:19)
[2017-04-16 07:45] LABS: BASOPHIL 0.3 % (0-2.0); EOSINOPHIL 4.6 % (0-4.5); MCH 36.5 pg (25.7-33.7); MCHC 36.3 g/dl (32.0-36.0); MEAN CELL VOLUME 100.5 fl (80-96); MEAN PLT VOLUME 7.5 fl (7.5-11.1); NEUTROPHILS 60.8 % (42.8-82.8); PLATELET COUNT 122 K/MM3 (134-434)
[2017-04-16 08:40] LABS: ANION GAP 13 (8-16); CALCIUM 8.7 mg/dL (8.5-10.1); CO2 19 mmol/L (21-32); CREATININE 0.9 mg/dL (0.55-1.02); GLUCOSE,RANDOM 115 mg/dL (74-106); MAGNESIUM 1.8 mg/dL (1.8-2.4)
[2017-04-16] MEDS ORDERED: PT OWN MED DRAWER 7, Y5N ONE (10:14)
[2017-04-16] MEDS: ASPIRIN 300 MG SUPP.RECT RC SCH (10:20)
[2017-04-16] MEDS: AMINO ACIDS 4.25%/D5W 1,000 ML IV SCH (10:20)
[2017-04-16] MEDS: MULTIVIT INJ. ADULT COMBO WITH VIT K 1 COMBO 10 ML VIAL IV SCH (10:21)
[2017-04-16] MEDS ORDERED: POTASSIUM PHOSPHATE 16 MM in SODIUM CHLORIDE 250 ML IVPB ONE (13:00)
--- NOTE | 2017-04-16 13:19 | PN ---
Progress Note, Physician History of Present Illness: no new events patient doing ok awake and calm - Current Medication List Current Medications: Active Medications Acetaminophen (Tylenol Suppository -) 650 mg [place] Q4H PRN PRN Reason: FEVER OR PAIN Last Admin: 04/14/17 23:30 Dose: 650 mg Aspirin (Asa -) 300 mg RC DAILY [facility] Last Admin: 04/16/17 10:20 Dose: 300 mg Piperacillin Sod/Tazobactam (Sod 3.375 gm/ Dextrose) 50 mls @ 100 mls/hr IVPB Q8H-IV [facility] PRN Reason: Protocol Last Admin: 04/16/17 11:11 Dose: 100 mls/hr Amino Acids (Clinimix -) 1,000 mls @ 42 mls/hr IV DAILY [facility] Last Admin: 04/16/17 10:20 Dose: 42 mls/hr Potassium Phosphate 16 mm/ (Sodium Chloride) 255.3333 mls @ 62.5 mls/hr IVPB ONCE ONE Stop: 04/16/17 17:05 Levothyroxine Sodium (Synthroid Injection -) 44 mcg IVPUSH DAILY@0700 [facility] Last Admin: 04/16/17 06:19 Dose: 44 mcg Metoprolol Tartrate (Lopressor Injection -) 2.5 mg IVPB Q6H-IV [facility] Last Admin: 04/16/17 10:20 Dose: 2.5 mg Multivitamins/Minerals (Infuvite Adult -) 10 ml IV DAILY [facility] Last Admin: 04/16/17 10:21 Dose: 10 ml - Objective Vital Signs: Vital Signs Temperature 99.3 F 04/16/17 02:00 Pulse Rate 83 04/16/17 10:36 Respiratory Rate 15 04/16/17 09:31 Blood Pressure 150/81 04/16/17 10:20 O2 Sat by Pulse Oximetry (%) 92 L 04/16/17 10:36 Constitutional: Yes: No Distress, Calm Cardiovascular: Yes: Regular Rate and Rhythm Respiratory: Yes: Regular, On Nasal O2, Rhonchi Gastrointestinal: Yes: Normal Bowel Sounds, Soft Musculoskeletal: Yes: WNL Extremities: Yes: WNL Neurological: Yes: Alert, Other Psychiatric: Yes: Alert, Other Labs: CBC, BMP 04/16/17 06:50 04/16/17 06:50 INR, PTT INR 1.05 (0.82-1.09) 04/01/17 14:56 Assessment/Plan Problem List - Problems (1) UTI (urinary tract infection) Code(s): N39.0 - URINARY TRACT INFECTION, SITE NOT SPECIFIED (2) Dementia Code(s): F03.90 - UNSPECIFIED DEMENTIA WITHOUT BEHAVIORAL DISTURBANCE (3) Pancytopenia Code(s): D61.818 - OTHER PANCYTOPENIA (4) CHF (congestive heart failure) Code(s): I50.9 - HEART FAILURE, UNSPECIFIED Qualifiers: Congestive heart failure type: unspecified congestive heart failure type Congestive heart failure chronicity: chronic Qualified Code(s): I50.9 - Heart failure, unspecified (5) HTN (hypertension) Code(s): I10 - ESSENTIAL (PRIMARY) HYPERTENSION (6) Hypothyroidism Code(s): E03.9 - HYPOTHYROIDISM, UNSPECIFIED Aspiration pneumonia Code(s): J69.0 - PNEUMONITIS DUE TO INHALATION OF FOOD AND VOMIT plan continue abx will stop on wednesday and see how patient does nutrition
--- NOTE | 2017-04-16 14:04 | PN ---
Progress Note, Physician Chief Complaint: Unable to obtain secondary to mental status - Current Medication List Current Medications: Active Medications Acetaminophen (Tylenol Suppository -) 650 mg DC Q4H PRN PRN Reason: FEVER OR PAIN Last Admin: 04/14/17 23:30 Dose: 650 mg Aspirin (Asa -) 300 mg RC DAILY [facility] Last Admin: 04/16/17 10:20 Dose: 300 mg Piperacillin Sod/Tazobactam (Sod 3.375 gm/ Dextrose) 50 mls @ 100 mls/hr IVPB Q8H-IV [facility] PRN Reason: Protocol Last Admin: 04/16/17 11:11 Dose: 100 mls/hr Amino Acids (Clinimix -) 1,000 mls @ 42 mls/hr IV DAILY [facility] Last Admin: 04/16/17 10:20 Dose: 42 mls/hr Potassium Phosphate 16 mm/ (Sodium Chloride) 255.3333 mls @ 62.5 mls/hr IVPB ONCE ONE Stop: 04/16/17 17:05 Last Admin: 04/16/17 13:48 Dose: 62.5 mls/hr Levothyroxine Sodium (Synthroid Injection -) 44 mcg IVPUSH DAILY@0700 [facility] Last Admin: 04/16/17 06:19 Dose: 44 mcg Metoprolol Tartrate (Lopressor Injection -) 2.5 mg IVPB Q6H-IV [facility] Last Admin: 04/16/17 10:20 Dose: 2.5 mg Multivitamins/Minerals (Infuvite Adult -) 10 ml IV DAILY [facility] Last Admin: 04/16/17 10:21 Dose: 10 ml - Objective Vital Signs: Vital Signs Temperature 37.4 C 04/16/17 02:00 Pulse Rate 83 04/16/17 10:36 Respiratory Rate 15 04/16/17 09:31 Blood Pressure 150/81 04/16/17 10:20 O2 Sat by Pulse Oximetry (%) 92 L 04/16/17 10:36 Constitutional: Yes: No Distress, Calm, Thin Cardiovascular: Yes: Regular Rate and Rhythm. No: Gallop, Murmur, Rub Respiratory: Yes: Regular, CTA Bilaterally, On Nasal O2. No: Rales, Rhonchi, Wheezes Gastrointestinal: Yes: Normal Bowel Sounds, Soft. No: Distention, Tenderness Extremities: Yes: WNL Edema: No Labs: CBC, BMP 04/16/17 06:50 04/16/17 06:50 INR, PTT INR 1.05 (0.82-1.09) 04/01/17 14:56 Problem List - Problems (1) UTI (urinary tract infection) Code(s): N39.0 - URINARY TRACT INFECTION, SITE NOT SPECIFIED (2) Dementia Code(s): F03.90 - UNSPECIFIED DEMENTIA WITHOUT BEHAVIORAL DISTURBANCE (3) Pancytopenia Code(s): D61.818 - OTHER PANCYTOPENIA (4) CHF (congestive heart failure) Code(s): I50.9 - HEART FAILURE, UNSPECIFIED Qualifiers: Congestive heart failure type: unspecified congestive heart failure type Congestive heart failure chronicity: chronic Qualified Code(s): I50.9 - Heart failure, unspecified (5) HTN (hypertension) Code(s): I10 - ESSENTIAL (PRIMARY) HYPERTENSION (6) Hypothyroidism Code(s): E03.9 - HYPOTHYROIDISM, UNSPECIFIED (7) Aspiration pneumonia Code(s): J69.0 - PNEUMONITIS DUE TO INHALATION OF FOOD AND VOMIT Assessment/Plan (1) Aspiration pneumonia Assessment/Plan: -ID following -continue zosyn -patient appears improved -continue npo -upper airway secretions lessened today Code(s): N39.0 - URINARY TRACT INFECTION, SITE NOT SPECIFIED (2) Dementia Assessment/Plan: -patient appears slightly better -continue to monitor Code(s): F03.90 - UNSPECIFIED DEMENTIA WITHOUT BEHAVIORAL DISTURBANCE (3) Pancytopenia Assessment/Plan: -stable and slightly improved -continue to monitor Code(s): D61.818 - OTHER PANCYTOPENIA (4) CHF (congestive heart failure) Assessment/Plan: -not in exacerbation Code(s): I50.9 - HEART FAILURE, UNSPECIFIED Qualifiers: Congestive heart failure type: unspecified congestive heart failure type Congestive heart failure chronicity: chronic Qualified Code(s): I50.9 - Heart failure, unspecified (5) HTN (hypertension) Assessment/Plan: -continue IV metoprolol Code(s): I10 - ESSENTIAL (PRIMARY) HYPERTENSION (6) Hypothyroidism Assessment/Plan: -continue IV synthroid Code(s): E03.9 - HYPOTHYROIDISM, UNSPECIFIED (7) FEN -continue clinimix -replace phosphorus
[2017-04-17] MEDS ORDERED: PIPERACILLIN/TAZOBACTAM 3.375 GM VIAL IVPB ONE ×3 (00:21→17:03)
[2017-04-17] MEDS ORDERED: DEXTROSE 5%-WATER - 50 ML IVPB ONE ×3 (00:22→17:03)
[2017-04-17] MEDS: PIPERACILLIN/TAZOB 3.375 GM 3.375 GM in DEXTROSE 5%-WATER - 50 ML IVPB SCH ×3 (02:13→17:07)
[2017-04-17] MEDS: METOPROLOL TARTRATE 5 MG/5 ML VIAL IVPB SCH ×4 (02:50→21:33)
[2017-04-17] MEDS: LEVOTHYROXINE SODIUM 100 MCG VIAL IVPUSH SCH (06:29)
[2017-04-17 07:01] LABS: BASOPHIL 0.3 % (0-2.0); EOSINOPHIL 5.3 % (0-4.5); MCH 36.4 pg (25.7-33.7); MCHC 35.9 g/dl (32.0-36.0); MEAN CELL VOLUME 101.5 fl (80-96); MEAN PLT VOLUME 7.7 fl (7.5-11.1); NEUTROPHILS 55.9 % (42.8-82.8); PLATELET COUNT 116 K/MM3 (134-434); RDW 14.8 % (11.6-15.6); WHITE BLOOD COUNT 3.3 K/mm3 (4.0-10.0)
[2017-04-17 07:32] LABS: ANION GAP 8 (8-16); CALCIUM 8.4 mg/dL (8.5-10.1); CO2 25 mmol/L (21-32); CREATININE 0.9 mg/dL (0.55-1.02); GLUCOSE,RANDOM 112 mg/dL (74-106); MAGNESIUM 1.7 mg/dL (1.8-2.4); PHOSPHOROUS 2.1 mg/dL (2.5-4.9)
[2017-04-17] MEDS ORDERED: MAGNESIUM SULF 50% (8.12 MEQ/2 ML-1 GM VIAL) IVPB ONE (08:33)
--- NOTE | 2017-04-17 08:39 | PN ---
Progress Note (short form) - Note Progress Note: PATIENT POORLY RESPONSIVE BUT AWAKE / IN NO DISTRESS. ON I.V. AB AND I.V. CLINIMIX. PATIENT WITH DEMENTIA / ASPIRATION PNEUMONIA SUSPECTED. ID IS FOLLOWING . PANCYTOPENIA / CBC STABLE TODAY. LOW K+ / LOW MG ++ <> SUPPLEMENTS ORDERED. Selected Entries 04/17/17 06:00 Temperature 98.5 F Pulse Rate 92 H Respiratory 18 Rate Blood Pressure 134/77 Laboratory Tests 04/17/17 04/17/17 06:05 06:05 WBC 3.3 L RBC 2.38 L Hgb 8.7 L Hct 24.2 L Plt Count 116 L Sodium 136 Potassium 3.3 L Chloride 103 Carbon Dioxide 25 D Anion Gap 8 BUN 26 H Creatinine 0.9 Random Glucose 112 H Calcium 8.4 L Phosphorus 2.1 L Magnesium 1.7 L P/E COR <> S 1 S 2 HS DISTANT CHEST <> FEW SCATTERED RHONCHI AT BASES. ABD <> SOFT <> NONTENDER EXT <>FEW SCATTERED ECCHYMOSES / 1 + STASIS EDEMA. IMP : ASP PNEUMONIA DEMENTIA HYPOK+ HYPOMG++ PANCYTOPENIA CHF HTN HYPOTHYROID PLAN : CONTINUE I.V. NUTRITION WITH CLINIMIX. IV K+ AND MG ++ ORDERED ID FOLLOWUP / CONTINUE AB
[2017-04-17] MEDS ORDERED: KCL 10 MEQ IVPB 100 ML IVPB SCH (08:45)
[2017-04-17] MEDS ORDERED: PT OWN MED DRAWER 7, Y5N ONE (09:46)
[2017-04-17] MEDS: AMINO ACIDS 4.25%/D5W 1,000 ML IV SCH (09:47)
[2017-04-17] MEDS: MULTIVIT INJ. ADULT COMBO WITH VIT K 1 COMBO 10 ML VIAL IV SCH (09:47)
[2017-04-17] MEDS: ASPIRIN 300 MG SUPP.RECT RC SCH (09:48)
--- NOTE | 2017-04-17 12:52 | PN ---
Progress Note, Physician History of Present Illness: stable awake dementia - Current Medication List Current Medications: Active Medications Acetaminophen (Tylenol Suppository -) 650 mg DE Q4H PRN PRN Reason: FEVER OR PAIN Last Admin: 04/14/17 23:30 Dose: 650 mg Aspirin (Asa -) 300 mg RC DAILY [facility] Last Admin: 04/17/17 09:48 Dose: 300 mg Piperacillin Sod/Tazobactam (Sod 3.375 gm/ Dextrose) 50 mls @ 100 mls/hr IVPB Q8H-IV JOC[facility]NE PRN Reason: Protocol Last Admin: 04/17/17 09:39 Dose: 100 mls/hr Amino Acids (Clinimix -) 1,000 mls @ 42 mls/hr IV DAILY [facility] Last Admin: 04/17/17 09:47 Dose: 42 mls/hr Levothyroxine Sodium (Synthroid Injection -) 44 mcg IVPUSH DAILY@0700 [facility] Last Admin: 04/17/17 06:29 Dose: 44 mcg Metoprolol Tartrate (Lopressor Injection -) 2.5 mg IVPB Q6H-IV [facility] Last Admin: 04/17/17 09:39 Dose: 2.5 mg Multivitamins/Minerals (Infuvite Adult -) 10 ml IV DAILY [facility] Last Admin: 04/17/17 09:47 Dose: 10 ml - Objective Vital Signs: Vital Signs Temperature 98.5 F 04/17/17 06:00 Pulse Rate 83 04/17/17 11:15 Respiratory Rate 18 04/17/17 06:00 Blood Pressure 122/76 04/17/17 09:39 O2 Sat by Pulse Oximetry (%) 92 L 04/17/17 11:15 Constitutional: Yes: No Distress, Calm Cardiovascular: Yes: Regular Rate and Rhythm Respiratory: Yes: Regular, Rhonchi Gastrointestinal: Yes: Normal Bowel Sounds, Soft Musculoskeletal: Yes: WNL Extremities: Yes: WNL Neurological: Yes: Alert, Other Labs: CBC, BMP 04/17/17 06:05 04/17/17 06:05 INR, PTT INR 1.05 (0.82-1.09) 04/01/17 14:56 Assessment/Plan Problem List - Problems (1) UTI (urinary tract infection) Code(s): N39.0 - URINARY TRACT INFECTION, SITE NOT SPECIFIED (2) Dementia Code(s): F03.90 - UNSPECIFIED DEMENTIA WITHOUT BEHAVIORAL DISTURBANCE (3) Pancytopenia Code(s): D61.818 - OTHER PANCYTOPENIA (4) CHF (congestive heart failure) Code(s): I50.9 - HEART FAILURE, UNSPECIFIED Qualifiers: Congestive heart failure type: unspecified congestive heart failure type Congestive heart failure chronicity: chronic Qualified Code(s): I50.9 - Heart failure, unspecified (5) HTN (hypertension) Code(s): I10 - ESSENTIAL (PRIMARY) HYPERTENSION (6) Hypothyroidism Code(s): E03.9 - HYPOTHYROIDISM, UNSPECIFIED Aspiration pneumonia Code(s): J69.0 - PNEUMONITIS DUE TO INHALATION OF FOOD AND VOMIT plan continue abx continue to monitor
[2017-04-18] MEDS ORDERED: PIPERACILLIN/TAZOBACTAM 3.375 GM VIAL IVPB ONE ×3 (00:30→17:55)
[2017-04-18] MEDS ORDERED: DEXTROSE 5%-WATER - 50 ML IVPB ONE ×3 (00:30→17:55)
[2017-04-18] MEDS: PIPERACILLIN/TAZOB 3.375 GM 3.375 GM in DEXTROSE 5%-WATER - 50 ML IVPB SCH ×3 (01:55→18:11)
[2017-04-18] MEDS: METOPROLOL TARTRATE 5 MG/5 ML VIAL IVPB SCH ×4 (03:55→21:27)
[2017-04-18] MEDS: LEVOTHYROXINE SODIUM 100 MCG VIAL IVPUSH SCH (06:47)
--- NOTE | 2017-04-18 08:25 | PN ---
Progress Note (short form) - Note Progress Note: NO OVERALL CHANGE . AWAKE BUT POORLY RESPONSIVE . SHE REMAINS ON I.V. AB AND I.V. CLINIMIX. Selected Entries 04/18/17 08:20 Pulse Rate 78 Blood Pressure 151/78 Blood Pressure 102 Mean Laboratory Tests 04/18/17 07:00 WBC 3.0 L RBC 2.32 L Hgb 8.5 L Hct 23.2 L MCV 100.0 H MCH 36.7 H MCHC 36.7 H Selected Entries Laboratory Tests P/E <> AWAKE / MINIMAL VERBAL RESPONSE COR <> S 1 S 2 HS DISTANT CHEST <> RHONCHI & DECREASED BS AT BASES. ABD <> SOFT <> NONTENDER IMP : ASP PNEUMONIA DEMENTIA HYPOK+ HYPOMG++ PANCYTOPENIA CHF HTN HYPOTHYROID PLAN : CONTINUE I.V.'S / CLINIMIX. LABS PENDING FOR CMP / MG ++ / K++ SUPPORTIVE CARE . ID FOLLOWUP.
[2017-04-18 08:40] LABS: ALBUMIN 2.6 g/dl (3.4-5.0); ALK PHOS 129 U/L (45-117); ANION GAP 9 (8-16); BILIRUBIN,TOTAL 0.7 mg/dL (0.2-1.0); CALCIUM 8.4 mg/dL (8.5-10.1); CO2 23 mmol/L (21-32); CREATININE 0.8 mg/dL (0.55-1.02); GLUCOSE,RANDOM 117 mg/dL (74-106); SGOT/AST 43 U/L (15-37); SGPT/ALT 61 U/L (12-78); TOT PROT 6.1 g/dl (6.4-8.2)
[2017-04-18 09:05] LABS: BASOPHIL 0.6 % (0-2.0); EOSINOPHIL 5.8 % (0-4.5); MCH 36.2 pg (25.7-33.7); MCHC 35.6 g/dl (32.0-36.0); MEAN CELL VOLUME 101.6 fl (80-96); MEAN PLT VOLUME 7.4 fl (7.5-11.1); NEUTROPHILS 50.4 % (42.8-82.8); PLATELET COUNT 112 K/MM3 (134-434); RDW 15.2 % (11.6-15.6)
[2017-04-18] MEDS ORDERED: PT OWN MED DRAWER 7, Y5N ONE (10:21)
[2017-04-18] MEDS: MULTIVIT INJ. ADULT COMBO WITH VIT K 1 COMBO 10 ML VIAL IV SCH (12:23)
[2017-04-18] MEDS: AMINO ACIDS 4.25%/D5W 1,000 ML IV SCH (12:23)
[2017-04-18] MEDS: ASPIRIN 300 MG SUPP.RECT RC SCH (12:24)
--- NOTE | 2017-04-18 13:03 | PN ---
Progress Note, Physician History of Present Illness: looks like patient having left side headache in distress - Current Medication List Current Medications: Active Medications Acetaminophen (Tylenol Suppository -) 650 mg [place] Q4H PRN PRN Reason: FEVER OR PAIN Last Admin: 04/14/17 23:30 Dose: 650 mg Aspirin (Asa -) 300 mg RC DAILY [facility] Last Admin: 04/18/17 12:24 Dose: 300 mg Piperacillin Sod/Tazobactam (Sod 3.375 gm/ Dextrose) 50 mls @ 100 mls/hr IVPB Q8H-IV [facility]NE PRN Reason: Protocol Last Admin: 04/18/17 12:24 Dose: 100 mls/hr Amino Acids (Clinimix -) 1,000 mls @ 42 mls/hr IV DAILY [facility] Last Admin: 04/18/17 12:23 Dose: 42 mls/hr Levothyroxine Sodium (Synthroid Injection -) 44 mcg IVPUSH DAILY@0700 [facility] Last Admin: 04/18/17 06:47 Dose: 44 mcg Metoprolol Tartrate (Lopressor Injection -) 2.5 mg IVPB Q6H-IV [facility] Last Admin: 04/18/17 10:48 Dose: 2.5 mg Multivitamins/Minerals (Infuvite Adult -) 10 ml IV DAILY [facility] Last Admin: 04/18/17 12:23 Dose: 10 ml - Objective Vital Signs: Vital Signs Temperature 98.2 F 04/17/17 18:00 Pulse Rate 88 04/18/17 12:42 Respiratory Rate 20 04/18/17 03:00 Blood Pressure 146/66 04/18/17 12:42 O2 Sat by Pulse Oximetry (%) 94 L 04/18/17 10:18 Constitutional: Yes: Mild Distress Cardiovascular: Yes: Regular Rate and Rhythm Respiratory: Yes: Regular, CTA Bilaterally Gastrointestinal: Yes: Normal Bowel Sounds, Soft Musculoskeletal: Yes: WNL Extremities: Yes: WNL Neurological: Yes: Alert, Other (headache) Psychiatric: Yes: Other Labs: CBC, BMP 04/18/17 08:30 04/18/17 07:00 INR, PTT INR 1.05 (0.82-1.09) 04/01/17 14:56 Assessment/Plan Problem List - Problems (1) UTI (urinary tract infection) Code(s): N39.0 - URINARY TRACT INFECTION, SITE NOT SPECIFIED (2) Dementia Code(s): F03.90 - UNSPECIFIED DEMENTIA WITHOUT BEHAVIORAL DISTURBANCE (3) Pancytopenia Code(s): D61.818 - OTHER PANCYTOPENIA (4) CHF (congestive heart failure) Code(s): I50.9 - HEART FAILURE, UNSPECIFIED Qualifiers: Congestive heart failure type: unspecified congestive heart failure type Congestive heart failure chronicity: chronic Qualified Code(s): I50.9 - Heart failure, unspecified (5) HTN (hypertension) Code(s): I10 - ESSENTIAL (PRIMARY) HYPERTENSION (6) Hypothyroidism Code(s): E03.9 - HYPOTHYROIDISM, UNSPECIFIED Aspiration pneumonia Code(s): J69.0 - PNEUMONITIS DUE TO INHALATION OF FOOD AND VOMIT plan continue abx continue to monitor will probably stop abx tomorrow rest as per primary team
[2017-04-18] MEDS: ACETAMINOPHEN 650 MG SUPP.RECT PR PRN (14:07)
[2017-04-19] MEDS ORDERED: DEXTROSE 5%-WATER - 50 ML IVPB ONE ×3 (01:28→16:24)
[2017-04-19] MEDS ORDERED: PIPERACILLIN/TAZOBACTAM 3.375 GM VIAL IVPB ONE ×3 (01:28→16:24)
[2017-04-19] MEDS: PIPERACILLIN/TAZOB 3.375 GM 3.375 GM in DEXTROSE 5%-WATER - 50 ML IVPB SCH ×3 (02:19→17:17)
[2017-04-19] MEDS: METOPROLOL TARTRATE 5 MG/5 ML VIAL IVPB SCH ×4 (02:45→21:00)
[2017-04-19] MEDS: LEVOTHYROXINE SODIUM 100 MCG VIAL IVPUSH SCH (06:32)
[2017-04-19] MEDS: ASPIRIN 300 MG SUPP.RECT RC SCH (09:29)
--- NOTE | 2017-04-19 13:05 | PN ---
Progress Note, Physician Chief Complaint: Unable to obtain secondary to mental status - Current Medication List Current Medications: Active Medications Acetaminophen (Tylenol Suppository -) 650 mg [place] Q4H PRN PRN Reason: FEVER OR PAIN Last Admin: 04/18/17 14:07 Dose: 650 mg Aspirin (Asa -) 300 mg RC DAILY [facility] Last Admin: 04/19/17 09:29 Dose: 300 mg Piperacillin Sod/Tazobactam (Sod 3.375 gm/ Dextrose) 50 mls @ 100 mls/hr IVPB Q8H-IV JOC[facility]NE PRN Reason: Protocol Last Admin: 04/19/17 09:29 Dose: 100 mls/hr Amino Acids (Clinimix -) 1,000 mls @ 42 mls/hr IV DAILY [facility] Last Admin: 04/18/17 12:23 Dose: 42 mls/hr Levothyroxine Sodium (Synthroid Injection -) 44 mcg IVPUSH DAILY@0700 [facility] Last Admin: 04/19/17 06:32 Dose: 44 mcg Metoprolol Tartrate (Lopressor Injection -) 2.5 mg IVPB Q6H-IV [facility] Last Admin: 04/19/17 08:47 Dose: 2.5 mg Multivitamins/Minerals (Infuvite Adult -) 10 ml IV DAILY [facility] Last Admin: 04/18/17 12:23 Dose: 10 ml - Objective Vital Signs: Vital Signs Temperature 36.6 C 04/19/17 08:55 Pulse Rate 77 04/19/17 12:25 Respiratory Rate 16 04/19/17 08:55 Blood Pressure 144/74 04/19/17 08:55 O2 Sat by Pulse Oximetry (%) 96 04/19/17 12:25 Constitutional: Yes: No Distress, Calm, Thin Cardiovascular: Yes: Regular Rate and Rhythm. No: Gallop, Murmur, Rub Respiratory: Yes: Regular, CTA Bilaterally. No: Rales, Rhonchi, Wheezes Gastrointestinal: Yes: Normal Bowel Sounds, Soft. No: Distention, Tenderness Extremities: Yes: WNL Edema: No Labs: CBC, BMP 04/18/17 08:30 04/18/17 07:00 INR, PTT INR 1.05 (0.82-1.09) 04/01/17 14:56 Problem List - Problems (1) UTI (urinary tract infection) Code(s): N39.0 - URINARY TRACT INFECTION, SITE NOT SPECIFIED (2) Dementia Code(s): F03.90 - UNSPECIFIED DEMENTIA WITHOUT BEHAVIORAL DISTURBANCE (3) Pancytopenia Code(s): D61.818 - OTHER PANCYTOPENIA (4) CHF (congestive heart failure) Code(s): I50.9 - HEART FAILURE, UNSPECIFIED Qualifiers: Congestive heart failure type: unspecified congestive heart failure type Congestive heart failure chronicity: chronic Qualified Code(s): I50.9 - Heart failure, unspecified (5) HTN (hypertension) Code(s): I10 - ESSENTIAL (PRIMARY) HYPERTENSION (6) Hypothyroidism Code(s): E03.9 - HYPOTHYROIDISM, UNSPECIFIED (7) Aspiration pneumonia Code(s): J69.0 - PNEUMONITIS DUE TO INHALATION OF FOOD AND VOMIT Assessment/Plan (1) Aspiration pneumonia Assessment/Plan: -ID following -continue zosyn -patient appears improved -continue npo -secretions resolved, speech therapy following Code(s): N39.0 - URINARY TRACT INFECTION, SITE NOT SPECIFIED (2) Dementia Assessment/Plan: -patient appears at baseline -awaiting decision for hospice vs PEG tube Code(s): F03.90 - UNSPECIFIED DEMENTIA WITHOUT BEHAVIORAL DISTURBANCE (3) Pancytopenia Assessment/Plan: -monitor Code(s): D61.818 - OTHER PANCYTOPENIA (4) CHF (congestive heart failure) Assessment/Plan: -not in exacerbation Code(s): I50.9 - HEART FAILURE, UNSPECIFIED Qualifiers: Congestive heart failure type: unspecified congestive heart failure type Congestive heart failure chronicity: chronic Qualified Code(s): I50.9 - Heart failure, unspecified (5) HTN (hypertension) Assessment/Plan: -continue IV metoprolol Code(s): I10 - ESSENTIAL (PRIMARY) HYPERTENSION (6) Hypothyroidism Assessment/Plan: -continue IV synthroid Code(s): E03.9 - HYPOTHYROIDISM, UNSPECIFIED (7) FEN -continue clinimix
--- NOTE | 2017-04-19 13:44 | PN ---
Progress Note, Physician History of Present Illness: better no complaints calm - Current Medication List Current Medications: Active Medications Acetaminophen (Tylenol Suppository -) 650 mg [place] Q4H PRN PRN Reason: FEVER OR PAIN Last Admin: 04/18/17 14:07 Dose: 650 mg Aspirin (Asa -) 300 mg RC DAILY [facility] Last Admin: 04/19/17 09:29 Dose: 300 mg Piperacillin Sod/Tazobactam (Sod 3.375 gm/ Dextrose) 50 mls @ 100 mls/hr IVPB Q8H-IV [facility] PRN Reason: Protocol Last Admin: 04/19/17 09:29 Dose: 100 mls/hr Amino Acids (Clinimix -) 1,000 mls @ 42 mls/hr IV DAILY [facility] Last Admin: 04/18/17 12:23 Dose: 42 mls/hr Levothyroxine Sodium (Synthroid Injection -) 44 mcg IVPUSH DAILY@0700 [facility] Last Admin: 04/19/17 06:32 Dose: 44 mcg Metoprolol Tartrate (Lopressor Injection -) 2.5 mg IVPB Q6H-IV [facility] Last Admin: 04/19/17 08:47 Dose: 2.5 mg Multivitamins/Minerals (Infuvite Adult -) 10 ml IV DAILY [facility] Last Admin: 04/18/17 12:23 Dose: 10 ml - Objective Vital Signs: Vital Signs Temperature 97.8 F 04/19/17 08:55 Pulse Rate 77 04/19/17 12:25 Respiratory Rate 16 04/19/17 08:55 Blood Pressure 144/74 04/19/17 08:55 O2 Sat by Pulse Oximetry (%) 96 04/19/17 12:25 Constitutional: Yes: No Distress, Calm Cardiovascular: Yes: Regular Rate and Rhythm Respiratory: Yes: Regular, Poor Air Entry, Rhonchi Gastrointestinal: Yes: Normal Bowel Sounds, Soft Musculoskeletal: Yes: WNL Extremities: Yes: WNL Neurological: Yes: Alert, Other Psychiatric: Yes: Alert, Other Labs: CBC, BMP 04/18/17 08:30 04/18/17 07:00 INR, PTT INR 1.05 (0.82-1.09) 04/01/17 14:56 Assessment/Plan Problem List - Problems (1) UTI (urinary tract infection) Code(s): N39.0 - URINARY TRACT INFECTION, SITE NOT SPECIFIED (2) Dementia Code(s): F03.90 - UNSPECIFIED DEMENTIA WITHOUT BEHAVIORAL DISTURBANCE (3) Pancytopenia Code(s): D61.818 - OTHER PANCYTOPENIA (4) CHF (congestive heart failure) Code(s): I50.9 - HEART FAILURE, UNSPECIFIED Qualifiers: Congestive heart failure type: unspecified congestive heart failure type Congestive heart failure chronicity: chronic Qualified Code(s): I50.9 - Heart failure, unspecified (5) HTN (hypertension) Code(s): I10 - ESSENTIAL (PRIMARY) HYPERTENSION (6) Hypothyroidism Code(s): E03.9 - HYPOTHYROIDISM, UNSPECIFIED Aspiration pneumonia Code(s): J69.0 - PNEUMONITIS DUE TO INHALATION OF FOOD AND VOMIT plan continue abx plan is for probable peg tube still with lot of secretions if peg tube done then will stop abx await for final decision
[2017-04-19] MEDS ORDERED: PT OWN MED DRAWER 7, Y5N ONE (15:08)
--- NOTE | 2017-04-19 16:02 | PN ---
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 Pt is less congested , not requiring suctioning, managing her secretions. She is confused, less combative,inconsistently imprecise articulation. Swallow reflex is delayed with fair (-) strength. No cough with pureed trials. Accepted 3-4 1/2 tsp before stating "enough." Pt with h/o poor po acceptance. Decision being mad regarding PEG insertion. Pt continues on Clinimix @ 42 ml/hr. Selected Entries 04/18/17 04/18/17 04/19/17 14:40 18:00 02:00 Lunch Temperature 99.1 F 97.6 F 97.8 F 04/19/17 04/19/17 04/19/17 06:00 08:55 14:38 Lunch NPO Temperature 97.6 F 97.8 F 98.0 F Laboratory Tests 04/18/17 07:00 WBC Cancelled Careful trial of Dysphagia Puree/nectar thick liquid/ Ensure compact/Magic cup. Monitor PO tolerance/calorie intake/ may still benefit from PEG, if family desires vs comfort care.
[2017-04-19] MEDS: MULTIVIT INJ. ADULT COMBO WITH VIT K 1 COMBO 10 ML VIAL IV SCH (17:18)
[2017-04-19] MEDS: AMINO ACIDS 4.25%/D5W 1,000 ML IV SCH (17:18)
[2017-04-20] MEDS ORDERED: DEXTROSE 5%-WATER - 50 ML IVPB ONE ×3 (02:07→17:01)
[2017-04-20] MEDS ORDERED: PIPERACILLIN/TAZOBACTAM 3.375 GM VIAL IVPB ONE ×3 (02:07→17:01)
[2017-04-20] MEDS: PIPERACILLIN/TAZOB 3.375 GM 3.375 GM in DEXTROSE 5%-WATER - 50 ML IVPB SCH ×3 (02:37→17:58)
[2017-04-20] MEDS: METOPROLOL TARTRATE 5 MG/5 ML VIAL IVPB SCH ×4 (03:18→22:37)
[2017-04-20] MEDS ORDERED: PT OWN MED DRAWER 7, Y5N ONE (06:27)
[2017-04-20] MEDS: LEVOTHYROXINE SODIUM 100 MCG VIAL IVPUSH SCH (06:57)
[2017-04-20 08:06] LABS: BASOPHIL 0.3 % (0-2.0); EOSINOPHIL 4.3 % (0-4.5); MCH 36.4 pg (25.7-33.7); MCHC 36.2 g/dl (32.0-36.0); MEAN CELL VOLUME 100.4 fl (80-96); MEAN PLT VOLUME 7.2 fl (7.5-11.1); NEUTROPHILS 57.7 % (42.8-82.8); PLATELET COUNT 133 K/MM3 (134-434); RDW 15.3 % (11.6-15.6); WHITE BLOOD COUNT 3.1 K/mm3 (4.0-10.0)
[2017-04-20 08:59] LABS: ANION GAP 10 (8-16); CALCIUM 8.7 mg/dL (8.5-10.1); CO2 25 mmol/L (21-32); CREATININE 0.8 mg/dL (0.55-1.02); GLUCOSE,RANDOM 112 mg/dL (74-106); PHOSPHOROUS 1.8 mg/dL (2.5-4.9)
[2017-04-20] MEDS: ASPIRIN 300 MG SUPP.RECT RC SCH (10:31)
--- NOTE | 2017-04-20 12:53 | PN ---
Progress Note, Physician Chief Complaint: Unable to obtain secondary to mental status - Current Medication List Current Medications: Active Medications Acetaminophen (Tylenol Suppository -) 650 mg [place] Q4H PRN PRN Reason: FEVER OR PAIN Last Admin: 04/18/17 14:07 Dose: 650 mg Aspirin (Asa -) 300 mg RC DAILY [facility] Last Admin: 04/20/17 10:31 Dose: 300 mg Piperacillin Sod/Tazobactam (Sod 3.375 gm/ Dextrose) 50 mls @ 100 mls/hr IVPB Q8H-IV [facility]NE PRN Reason: Protocol Last Admin: 04/20/17 11:21 Dose: 100 mls/hr Levothyroxine Sodium (Synthroid Injection -) 44 mcg IVPUSH DAILY@0700 [facility] Last Admin: 04/20/17 06:57 Dose: 44 mcg Metoprolol Tartrate (Lopressor Injection -) 2.5 mg IVPB Q6H-IV [facility] Last Admin: 04/20/17 10:00 Dose: 2.5 mg Multivitamins/Minerals (Infuvite Adult -) 10 ml IV DAILY [facility] Last Admin: 04/19/17 17:18 Dose: 10 ml - Objective Vital Signs: Vital Signs Temperature 36.5 C 04/20/17 09:03 Pulse Rate 80 04/20/17 11:23 Respiratory Rate 16 04/20/17 09:03 Blood Pressure 153/85 04/20/17 10:00 O2 Sat by Pulse Oximetry (%) 94 L 04/20/17 11:23 Constitutional: Yes: No Distress, Calm, Thin Cardiovascular: Yes: Regular Rate and Rhythm. No: Gallop, Murmur, Rub Respiratory: Yes: Regular, CTA Bilaterally. No: Rales, Rhonchi, Wheezes Gastrointestinal: Yes: Normal Bowel Sounds, Soft. No: Distention, Tenderness Extremities: Yes: WNL Edema: No Labs: CBC, BMP 04/20/17 07:00 04/20/17 07:00 INR, PTT INR 1.05 (0.82-1.09) 04/01/17 14:56 Problem List - Problems (1) UTI (urinary tract infection) Code(s): N39.0 - URINARY TRACT INFECTION, SITE NOT SPECIFIED (2) Dementia Code(s): F03.90 - UNSPECIFIED DEMENTIA WITHOUT BEHAVIORAL DISTURBANCE (3) Pancytopenia Code(s): D61.818 - OTHER PANCYTOPENIA (4) CHF (congestive heart failure) Code(s): I50.9 - HEART FAILURE, UNSPECIFIED Qualifiers: Congestive heart failure type: unspecified congestive heart failure type Congestive heart failure chronicity: chronic Qualified Code(s): I50.9 - Heart failure, unspecified (5) HTN (hypertension) Code(s): I10 - ESSENTIAL (PRIMARY) HYPERTENSION (6) Hypothyroidism Code(s): E03.9 - HYPOTHYROIDISM, UNSPECIFIED (7) Aspiration pneumonia Code(s): J69.0 - PNEUMONITIS DUE TO INHALATION OF FOOD AND VOMIT Assessment/Plan (1) Aspiration pneumonia Assessment/Plan: -ID following -continue zosyn -patient appears improved -continue npo -secretions resolved, speech therapy following Code(s): N39.0 - URINARY TRACT INFECTION, SITE NOT SPECIFIED (2) Dementia Assessment/Plan: -patient appears at baseline -case d/w son, planning for PEG tube Code(s): F03.90 - UNSPECIFIED DEMENTIA WITHOUT BEHAVIORAL DISTURBANCE (3) Pancytopenia Assessment/Plan: -monitor Code(s): D61.818 - OTHER PANCYTOPENIA (4) CHF (congestive heart failure) Assessment/Plan: -not in exacerbation Code(s): I50.9 - HEART FAILURE, UNSPECIFIED Qualifiers: Congestive heart failure type: unspecified congestive heart failure type Congestive heart failure chronicity: chronic Qualified Code(s): I50.9 - Heart failure, unspecified (5) HTN (hypertension) Assessment/Plan: -continue IV metoprolol Code(s): I10 - ESSENTIAL (PRIMARY) HYPERTENSION (6) Hypothyroidism Assessment/Plan: -continue IV synthroid Code(s): E03.9 - HYPOTHYROIDISM, UNSPECIFIED (7) FEN -continue clinimix
--- NOTE | 2017-04-20 13:00 | PN ---
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 Swallow reflex is delayed with fair (-) strength. No cough with pureed trials. Accepted 3-4 1/2 tsp before stating "enough." Pt with h/o poor po acceptance. Yesterday's recommendations were for PO trials. However, per PMD, family has decided on PEG insertion today. Therefore, continue NPO and once PEG is inserted, we can trial some pleasure feedings, if indicated.
[2017-04-20] MEDS ORDERED: DEXTROSE 5%-0.45% SALINE 1,000 ML IV SCH (14:15)
--- NOTE | 2017-04-20 17:35 | PN ---
Progress Note, Physician History of Present Illness: better no complaints calm - Current Medication List Current Medications: Active Medications Acetaminophen (Tylenol Suppository -) 650 mg [place] Q4H PRN PRN Reason: FEVER OR PAIN Last Admin: 04/18/17 14:07 Dose: 650 mg Aspirin (Asa -) 300 mg RC DAILY [facility] Last Admin: 04/20/17 10:31 Dose: 300 mg Piperacillin Sod/Tazobactam (Sod 3.375 gm/ Dextrose) 50 mls @ 100 mls/hr IVPB Q8H-IV [facility] PRN Reason: Protocol Last Admin: 04/20/17 11:21 Dose: 100 mls/hr Amino Acids (Clinimix -) 1,000 mls @ 42 mls/hr IV Q23H [facility] Levothyroxine Sodium (Synthroid Injection -) 44 mcg IVPUSH DAILY@0700 [facility] Last Admin: 04/20/17 06:57 Dose: 44 mcg Metoprolol Tartrate (Lopressor Injection -) 2.5 mg IVPB Q6H-IV [facility] Last Admin: 04/20/17 17:00 Dose: 2.5 mg Multivitamins/Minerals (Infuvite Adult -) 10 ml IV DAILY [facility] Last Admin: 04/19/17 17:18 Dose: 10 ml - Objective Vital Signs: Vital Signs Temperature 97.9 F 04/20/17 14:42 Pulse Rate 92 H 04/20/17 17:00 Respiratory Rate 18 04/20/17 14:42 Blood Pressure 130/76 04/20/17 17:00 O2 Sat by Pulse Oximetry (%) 94 L 04/20/17 11:23 Constitutional: Yes: No Distress, Calm Cardiovascular: Yes: Regular Rate and Rhythm Respiratory: Yes: Regular, Poor Air Entry Gastrointestinal: Yes: Normal Bowel Sounds, Soft Musculoskeletal: Yes: WNL Extremities: Yes: WNL Neurological: Yes: Alert, Other Psychiatric: Yes: Alert Labs: CBC, BMP 04/20/17 07:00 04/20/17 07:00 INR, PTT INR 1.05 (0.82-1.09) 04/01/17 14:56 Assessment/Plan Problem List - Problems (1) UTI (urinary tract infection) Code(s): N39.0 - URINARY TRACT INFECTION, SITE NOT SPECIFIED (2) Dementia Code(s): F03.90 - UNSPECIFIED DEMENTIA WITHOUT BEHAVIORAL DISTURBANCE (3) Pancytopenia Code(s): D61.818 - OTHER PANCYTOPENIA (4) CHF (congestive heart failure) Code(s): I50.9 - HEART FAILURE, UNSPECIFIED Qualifiers: Congestive heart failure type: unspecified congestive heart failure type Congestive heart failure chronicity: chronic Qualified Code(s): I50.9 - Heart failure, unspecified (5) HTN (hypertension) Code(s): I10 - ESSENTIAL (PRIMARY) HYPERTENSION (6) Hypothyroidism Code(s): E03.9 - HYPOTHYROIDISM, UNSPECIFIED Aspiration pneumonia Code(s): J69.0 - PNEUMONITIS DUE TO INHALATION OF FOOD AND VOMIT plan continue abx await for peg tube placement
[2017-04-20] MEDS: AMINO ACIDS 4.25%/D5W 1,000 ML IV SCH (22:38)
[2017-04-20] MEDS: MULTIVIT INJ. ADULT COMBO WITH VIT K 1 COMBO 10 ML VIAL IV SCH (22:38)
[2017-04-21] MEDS ORDERED: PIPERACILLIN/TAZOBACTAM 3.375 GM VIAL IVPB ONE ×3 (01:32→17:27)
[2017-04-21] MEDS ORDERED: DEXTROSE 5%-WATER - 50 ML IVPB ONE ×3 (01:32→17:27)
[2017-04-21] MEDS: PIPERACILLIN/TAZOB 3.375 GM 3.375 GM in DEXTROSE 5%-WATER - 50 ML IVPB SCH ×3 (01:46→17:55)
[2017-04-21] MEDS: METOPROLOL TARTRATE 5 MG/5 ML VIAL IVPB SCH ×4 (04:16→21:35)
[2017-04-21] MEDS: LEVOTHYROXINE SODIUM 100 MCG VIAL IVPUSH SCH (06:19)
[2017-04-21 08:48] LABS: BASOPHIL 0.5 % (0-2.0); EOSINOPHIL 6.6 % (0-4.5); MCH 36.2 pg (25.7-33.7); MCHC 36.1 g/dl (32.0-36.0); MEAN CELL VOLUME 100.2 fl (80-96); MEAN PLT VOLUME 7.2 fl (7.5-11.1); NEUTROPHILS 59.3 % (42.8-82.8); PLATELET COUNT 141 K/MM3 (134-434); RDW 15.7 % (11.6-15.6); WHITE BLOOD COUNT 3.2 K/mm3 (4.0-10.0)
[2017-04-21 08:52] LABS: INR 1.12 (0.82-1.09); PROTHROMBIN TIME (PATIENT) 12.3 SEC (9.98-11.88)
[2017-04-21 08:55] LABS: ACTIVATED PTT 27.6 SECONDS (26.9-34.4)
[2017-04-21 09:16] LABS: ANION GAP 12 (8-16); CALCIUM 8.8 mg/dL (8.5-10.1); CO2 22 mmol/L (21-32); CREATININE 0.8 mg/dL (0.55-1.02); GLUCOSE,RANDOM 105 mg/dL (74-106); MAGNESIUM 2.1 mg/dL (1.8-2.4); PHOSPHOROUS 2.3 mg/dL (2.5-4.9)
[2017-04-21] MEDS ORDERED: PT OWN MED DRAWER 7, Y5N ONE (11:16)
[2017-04-21] MEDS: ASPIRIN 300 MG SUPP.RECT RC SCH (11:17)
[2017-04-21] MEDS: MULTIVIT INJ. ADULT COMBO WITH VIT K 1 COMBO 10 ML VIAL IV SCH (11:18)
[2017-04-21] MEDS: AMINO ACIDS 4.25%/D5W 1,000 ML IV SCH (15:20)
--- NOTE | 2017-04-21 15:31 | PN ---
Progress Note, Physician History of Present Illness: calm - Current Medication List Current Medications: Active Medications Acetaminophen (Tylenol Suppository -) 650 mg [place] Q4H PRN PRN Reason: FEVER OR PAIN Last Admin: 04/18/17 14:07 Dose: 650 mg Aspirin (Asa -) 300 mg RC DAILY [facility] Last Admin: 04/21/17 11:17 Dose: 300 mg Piperacillin Sod/Tazobactam (Sod 3.375 gm/ Dextrose) 50 mls @ 100 mls/hr IVPB Q8H-IV JOCELYNE PRN Reason: Protocol Last Admin: 04/21/17 11:00 Dose: 100 mls/hr Amino Acids (Clinimix -) 1,000 mls @ 42 mls/hr IV Q23H JOCELYNE Last Admin: 04/21/17 15:20 Dose: 42 mls/hr Levothyroxine Sodium (Synthroid Injection -) 44 mcg IVPUSH DAILY@0700 [facility] Last Admin: 04/21/17 06:19 Dose: 44 mcg Metoprolol Tartrate (Lopressor Injection -) 2.5 mg IVPB Q6H-IV JOCELYNE Last Admin: 04/21/17 11:04 Dose: 2.5 mg Multivitamins/Minerals (Infuvite Adult -) 10 ml IV DAILY [facility] Last Admin: 04/21/17 11:18 Dose: Not Given - Objective Vital Signs: Vital Signs Temperature 98.5 F 04/21/17 14:05 Pulse Rate 74 04/21/17 14:05 Respiratory Rate 22 04/21/17 14:05 Blood Pressure 146/82 04/21/17 14:05 O2 Sat by Pulse Oximetry (%) 94 L 04/21/17 10:43 Constitutional: Yes: No Distress, Calm Cardiovascular: Yes: Regular Rate and Rhythm Respiratory: Yes: Regular, CTA Bilaterally Gastrointestinal: Yes: Normal Bowel Sounds, Soft Musculoskeletal: Yes: WNL Extremities: Yes: WNL Neurological: Yes: Alert, Other Labs: CBC, BMP 04/21/17 07:10 04/21/17 07:10 INR, PTT INR 1.12 (0.82-1.09) 04/21/17 07:10 Assessment/Plan Problem List - Problems (1) UTI (urinary tract infection) Code(s): N39.0 - URINARY TRACT INFECTION, SITE NOT SPECIFIED (2) Dementia Code(s): F03.90 - UNSPECIFIED DEMENTIA WITHOUT BEHAVIORAL DISTURBANCE (3) Pancytopenia Code(s): D61.818 - OTHER PANCYTOPENIA (4) CHF (congestive heart failure) Code(s): I50.9 - HEART FAILURE, UNSPECIFIED Qualifiers: Congestive heart failure type: unspecified congestive heart failure type Congestive heart failure chronicity: chronic Qualified Code(s): I50.9 - Heart failure, unspecified (5) HTN (hypertension) Code(s): I10 - ESSENTIAL (PRIMARY) HYPERTENSION (6) Hypothyroidism Code(s): E03.9 - HYPOTHYROIDISM, UNSPECIFIED Aspiration pneumonia Code(s): J69.0 - PNEUMONITIS DUE TO INHALATION OF FOOD AND VOMIT plan continue abx await for peg tube placement patient continues to be lethargic rest as per primary
--- NOTE | 2017-04-21 15:59 | PN ---
Progress Note, Physician Chief Complaint: Unable to obtain secondary to mental status - Current Medication List Current Medications: Active Medications Acetaminophen (Tylenol Suppository -) 650 mg [place] Q4H PRN PRN Reason: FEVER OR PAIN Last Admin: 04/18/17 14:07 Dose: 650 mg Aspirin (Asa -) 300 mg RC DAILY [facility] Last Admin: 04/21/17 11:17 Dose: 300 mg Piperacillin Sod/Tazobactam (Sod 3.375 gm/ Dextrose) 50 mls @ 100 mls/hr IVPB Q8H-IV JOCELYNE PRN Reason: Protocol Last Admin: 04/21/17 11:00 Dose: 100 mls/hr Amino Acids (Clinimix -) 1,000 mls @ 42 mls/hr IV Q23H [facility] Last Admin: 04/21/17 15:20 Dose: 42 mls/hr Levothyroxine Sodium (Synthroid Injection -) 44 mcg IVPUSH DAILY@0700 [facility] Last Admin: 04/21/17 06:19 Dose: 44 mcg Metoprolol Tartrate (Lopressor Injection -) 2.5 mg IVPB Q6H-IV JOCELYNE Last Admin: 04/21/17 11:04 Dose: 2.5 mg Multivitamins/Minerals (Infuvite Adult -) 10 ml IV DAILY [facility] Last Admin: 04/21/17 11:18 Dose: Not Given - Objective Vital Signs: Vital Signs Temperature 36.9 C 04/21/17 14:05 Pulse Rate 74 04/21/17 14:05 Respiratory Rate 22 04/21/17 14:05 Blood Pressure 146/82 04/21/17 14:05 O2 Sat by Pulse Oximetry (%) 94 L 04/21/17 10:43 Constitutional: Yes: No Distress, Calm, Thin Cardiovascular: Yes: Regular Rate and Rhythm. No: Gallop, Murmur, Rub Respiratory: Yes: Regular, CTA Bilaterally. No: Rales, Rhonchi, Wheezes Gastrointestinal: Yes: Normal Bowel Sounds, Soft. No: Distention, Tenderness Extremities: Yes: WNL Edema: No Labs: CBC, BMP 04/21/17 07:10 04/21/17 07:10 INR, PTT INR 1.12 (0.82-1.09) 04/21/17 07:10 Problem List - Problems (1) UTI (urinary tract infection) Code(s): N39.0 - URINARY TRACT INFECTION, SITE NOT SPECIFIED (2) Dementia Code(s): F03.90 - UNSPECIFIED DEMENTIA WITHOUT BEHAVIORAL DISTURBANCE (3) Pancytopenia Code(s): D61.818 - OTHER PANCYTOPENIA (4) CHF (congestive heart failure) Code(s): I50.9 - HEART FAILURE, UNSPECIFIED Qualifiers: Congestive heart failure type: unspecified congestive heart failure type Congestive heart failure chronicity: chronic Qualified Code(s): I50.9 - Heart failure, unspecified (5) HTN (hypertension) Code(s): I10 - ESSENTIAL (PRIMARY) HYPERTENSION (6) Hypothyroidism Code(s): E03.9 - HYPOTHYROIDISM, UNSPECIFIED (7) Aspiration pneumonia Code(s): J69.0 - PNEUMONITIS DUE TO INHALATION OF FOOD AND VOMIT Assessment/Plan (1) Aspiration pneumonia Assessment/Plan: -ID following and continuing zosyn Code(s): N39.0 - URINARY TRACT INFECTION, SITE NOT SPECIFIED (2) Dementia Assessment/Plan: -patient appears at baseline -case d/w son, planning for PEG tube Code(s): F03.90 - UNSPECIFIED DEMENTIA WITHOUT BEHAVIORAL DISTURBANCE (3) Pancytopenia Assessment/Plan: -monitor Code(s): D61.818 - OTHER PANCYTOPENIA (4) CHF (congestive heart failure) Assessment/Plan: -not in exacerbation Code(s): I50.9 - HEART FAILURE, UNSPECIFIED Qualifiers: Congestive heart failure type: unspecified congestive heart failure type Congestive heart failure chronicity: chronic Qualified Code(s): I50.9 - Heart failure, unspecified (5) HTN (hypertension) Assessment/Plan: -continue IV metoprolol Code(s): I10 - ESSENTIAL (PRIMARY) HYPERTENSION (6) Hypothyroidism Assessment/Plan: -continue IV synthroid Code(s): E03.9 - HYPOTHYROIDISM, UNSPECIFIED (7) FEN -continue clinimix -replace phosphorus -IR consulted for PEG tube
[2017-04-21] MEDS ORDERED: POTASSIUM PHOSPHATE 16 MM in SODIUM CHLORIDE 250 ML IVPB ONE (17:30)
[2017-04-22] MEDS ORDERED: PIPERACILLIN/TAZOBACTAM 3.375 GM VIAL IVPB ONE ×4 (02:09→19:04)
[2017-04-22] MEDS ORDERED: DEXTROSE 5%-WATER - 50 ML IVPB ONE ×4 (02:09→19:04)
[2017-04-22] MEDS: PIPERACILLIN/TAZOB 3.375 GM 3.375 GM in DEXTROSE 5%-WATER - 50 ML IVPB SCH ×3 (02:25→19:08)
[2017-04-22] MEDS: METOPROLOL TARTRATE 5 MG/5 ML VIAL IVPB SCH ×4 (03:26→21:43)
[2017-04-22] MEDS: LEVOTHYROXINE SODIUM 100 MCG VIAL IVPUSH SCH (06:08)
[2017-04-22 08:33] LABS: BASOPHIL 0.4 % (0-2.0); EOSINOPHIL 6.1 % (0-4.5); MCH 36.6 pg (25.7-33.7); MCHC 36.3 g/dl (32.0-36.0); MEAN CELL VOLUME 100.7 fl (80-96); MEAN PLT VOLUME 7.3 fl (7.5-11.1); NEUTROPHILS 59.8 % (42.8-82.8); PLATELET COUNT 139 K/MM3 (134-434); RDW 15.6 % (11.6-15.6); WHITE BLOOD COUNT 2.9 K/mm3 (4.0-10.0)
[2017-04-22 08:56] LABS: ANION GAP 9 (8-16); CALCIUM 8.6 mg/dL (8.5-10.1); CO2 22 mmol/L (21-32); CREATININE 0.8 mg/dL (0.55-1.02); GLUCOSE,RANDOM 111 mg/dL (74-106); MAGNESIUM 1.9 mg/dL (1.8-2.4); PHOSPHOROUS 2.4 mg/dL (2.5-4.9)
[2017-04-22] MEDS ORDERED: PT OWN MED DRAWER 7, Y5N ONE (09:18)
[2017-04-22] MEDS ORDERED: POTASSIUM PHOSPHATE 16 MM in SODIUM CHLORIDE 250 ML IVPB ONE (13:12)
--- NOTE | 2017-04-22 13:15 | PN ---
Progress Note, Physician Chief Complaint: Unable to obtain secondary to mental status - Current Medication List Current Medications: Active Medications Acetaminophen (Tylenol Suppository -) 650 mg [place] Q4H PRN PRN Reason: FEVER OR PAIN Last Admin: 04/18/17 14:07 Dose: 650 mg Piperacillin Sod/Tazobactam (Sod 3.375 gm/ Dextrose) 50 mls @ 100 mls/hr IVPB Q8H-IV JOCELYNE PRN Reason: Protocol Last Admin: 04/22/17 10:07 Dose: 100 mls/hr Amino Acids (Clinimix -) 1,000 mls @ 42 mls/hr IV Q23H [facility]OC[facility]NE Last Admin: 04/21/17 15:20 Dose: 42 mls/hr Potassium Chloride (Potassium Chloride 10 Meq Premix Ivpb -) 100 mls @ 100 mls/ hr IVPB Q60M JOCELYNE Stop: 04/22/17 15:14 Potassium Phosphate 16 mm/ (Sodium Chloride) 255.3333 mls @ 62.5 mls/hr IVPB ONCE ONE Stop: 04/22/17 17:17 Levothyroxine Sodium (Synthroid Injection -) 44 mcg IVPUSH DAILY@0700 [facility] Last Admin: 04/22/17 06:08 Dose: 44 mcg Metoprolol Tartrate (Lopressor Injection -) 2.5 mg IVPB Q6H-IV JOCELYNE Last Admin: 04/22/17 09:21 Dose: 2.5 mg Multivitamins/Minerals (Infuvite Adult -) 10 ml IV DAILY [facility] Last Admin: 04/21/17 11:18 Dose: Not Given - Objective Vital Signs: Vital Signs Temperature 37.8 C H 04/22/17 09:51 Pulse Rate 85 04/22/17 11:46 Respiratory Rate 20 04/22/17 09:11 Blood Pressure 131/62 04/22/17 09:21 O2 Sat by Pulse Oximetry (%) 95 04/22/17 11:46 Constitutional: Yes: No Distress, Calm, Thin Cardiovascular: Yes: Regular Rate and Rhythm. No: Gallop, Murmur, Rub Respiratory: Yes: Regular, CTA Bilaterally. No: Rales, Rhonchi, Wheezes Gastrointestinal: Yes: Normal Bowel Sounds, Soft. No: Distention, Tenderness Extremities: Yes: WNL Edema: No Labs: CBC, BMP 04/22/17 06:45 04/22/17 06:45 INR, PTT INR 1.12 (0.82-1.09) 04/21/17 07:10 Problem List - Problems (1) UTI (urinary tract infection) Code(s): N39.0 - URINARY TRACT INFECTION, SITE NOT SPECIFIED (2) Dementia Code(s): F03.90 - UNSPECIFIED DEMENTIA WITHOUT BEHAVIORAL DISTURBANCE (3) Pancytopenia Code(s): D61.818 - OTHER PANCYTOPENIA (4) CHF (congestive heart failure) Code(s): I50.9 - HEART FAILURE, UNSPECIFIED Qualifiers: Congestive heart failure type: unspecified congestive heart failure type Congestive heart failure chronicity: chronic Qualified Code(s): I50.9 - Heart failure, unspecified (5) HTN (hypertension) Code(s): I10 - ESSENTIAL (PRIMARY) HYPERTENSION (6) Hypothyroidism Code(s): E03.9 - HYPOTHYROIDISM, UNSPECIFIED (7) Aspiration pneumonia Code(s): J69.0 - PNEUMONITIS DUE TO INHALATION OF FOOD AND VOMIT Assessment/Plan (1) Aspiration pneumonia Assessment/Plan: -ID following and continuing zosyn Code(s): N39.0 - URINARY TRACT INFECTION, SITE NOT SPECIFIED (2) Dementia Assessment/Plan: -patient appears at baseline -case d/w son, planning for PEG tube -holding aspirin so PEG tube can be placed Code(s): F03.90 - UNSPECIFIED DEMENTIA WITHOUT BEHAVIORAL DISTURBANCE (3) Pancytopenia Assessment/Plan: -monitor Code(s): D61.818 - OTHER PANCYTOPENIA (4) CHF (congestive heart failure) Assessment/Plan: -not in exacerbation Code(s): I50.9 - HEART FAILURE, UNSPECIFIED Qualifiers: Congestive heart failure type: unspecified congestive heart failure type Congestive heart failure chronicity: chronic Qualified Code(s): I50.9 - Heart failure, unspecified (5) HTN (hypertension) Assessment/Plan: -continue IV metoprolol Code(s): I10 - ESSENTIAL (PRIMARY) HYPERTENSION (6) Hypothyroidism Assessment/Plan: -continue IV synthroid Code(s): E03.9 - HYPOTHYROIDISM, UNSPECIFIED (7) FEN -continue clinimix -replace phosphorus and potassium -IR consulted for PEG tube -on aspirin, will hold for allotted time needed and have PEG tube placed
--- NOTE | 2017-04-22 13:15 | DS ---
Physical Examination Vital Signs: Vital Signs Temperature 37.8 C H 04/22/17 09:51 Pulse Rate 85 04/22/17 11:46 Respiratory Rate 20 04/22/17 09:11 Blood Pressure 131/62 04/22/17 09:21 O2 Sat by Pulse Oximetry (%) 95 04/22/17 11:46 Labs: CBC, BMP 04/22/17 06:45 04/22/17 06:45 Discharge Summary Reason For Visit: PANCYTOPENIA / ALTERED MENTAL STATUS Current Active Problems Altered mental status, unspecified (Acute) Aspiration pneumonia (Acute) Dementia (Acute) Fever (Acute) Pancytopenia (Acute) UTI (urinary tract infection) (Acute) Condition: Stable - Instructions Referrals: Cheko Mitchell MD [Primary Care Provider] - - Home Medications Comprehensive Discharge Medication List: Ambulatory Orders Aspirin Coated [Ecotrin -] 81 mg PO DAILY #30 tablet.ec 01/03/14 Carvedilol [Coreg -] 3.125 mg PO BID #60 tablet 01/03/14 Levothyroxine [Synthroid -] 100 mcg PO DAILY@0700 #30 tablet 01/03/14 Lisinopril [Prinivil] 2.5 mg PO DAILY #30 tablet 01/03/14 Atorvastatin Ca [Lipitor] 10 mg PO HS 04/01/17 Clopidogrel Bisulfate [Plavix -] 75 mg PO DAILY 04/01/17 Folic Acid 1 mg PO DAILY 04/01/17
[2017-04-22] MEDS: AMINO ACIDS 4.25%/D5W 1,000 ML IV SCH (13:52)
[2017-04-22] MEDS: KCL 10 MEQ IVPB 100 ML IVPB SCH ×3 (16:13→17:30)
--- NOTE | 2017-04-22 16:49 | PN ---
Progress Note, Physician History of Present Illness: calm no new events plan for peg tube - Current Medication List Current Medications: Active Medications Acetaminophen (Tylenol Suppository -) 650 mg [place] Q4H PRN PRN Reason: FEVER OR PAIN Last Admin: 04/18/17 14:07 Dose: 650 mg Piperacillin Sod/Tazobactam (Sod 3.375 gm/ Dextrose) 50 mls @ 100 mls/hr IVPB Q8H-IV JOECLYNE PRN Reason: Protocol Last Admin: 04/22/17 10:07 Dose: 100 mls/hr Amino Acids (Clinimix -) 1,000 mls @ 42 mls/hr IV Q23H JOCELYNE Last Admin: 04/22/17 13:52 Dose: 42 mls/hr Potassium Phosphate 16 mm/ (Sodium Chloride) 255.3333 mls @ 62.5 mls/hr IVPB ONCE ONE Stop: 04/22/17 17:17 Levothyroxine Sodium (Synthroid Injection -) 44 mcg IVPUSH DAILY@0700 [facility] Last Admin: 04/22/17 06:08 Dose: 44 mcg Metoprolol Tartrate (Lopressor Injection -) 2.5 mg IVPB Q6H-IV JOCELYNE Last Admin: 04/22/17 15:38 Dose: 2.5 mg Multivitamins/Minerals (Infuvite Adult -) 10 ml IV DAILY [facility]NE Last Admin: 04/21/17 11:18 Dose: Not Given - Objective Vital Signs: Vital Signs Temperature 99.8 F H 04/22/17 14:39 Pulse Rate 98 H 04/22/17 15:38 Respiratory Rate 20 04/22/17 15:34 Blood Pressure 144/72 04/22/17 15:38 O2 Sat by Pulse Oximetry (%) 95 04/22/17 11:46 Constitutional: Yes: No Distress, Calm Cardiovascular: Yes: Regular Rate and Rhythm Respiratory: Yes: Regular, Poor Air Entry, Rhonchi, Other (whitish secretions) Gastrointestinal: Yes: Normal Bowel Sounds, Soft Musculoskeletal: Yes: WNL Extremities: Yes: WNL Neurological: Yes: Alert, Oriented Psychiatric: Yes: Alert, Other Labs: CBC, BMP 04/22/17 06:45 04/22/17 06:45 INR, PTT INR 1.12 (0.82-1.09) 04/21/17 07:10 Assessment/Plan Problem List - Problems (1) UTI (urinary tract infection) Code(s): N39.0 - URINARY TRACT INFECTION, SITE NOT SPECIFIED (2) Dementia Code(s): F03.90 - UNSPECIFIED DEMENTIA WITHOUT BEHAVIORAL DISTURBANCE (3) Pancytopenia Code(s): D61.818 - OTHER PANCYTOPENIA (4) CHF (congestive heart failure) Code(s): I50.9 - HEART FAILURE, UNSPECIFIED Qualifiers: Congestive heart failure type: unspecified congestive heart failure type Congestive heart failure chronicity: chronic Qualified Code(s): I50.9 - Heart failure, unspecified (5) HTN (hypertension) Code(s): I10 - ESSENTIAL (PRIMARY) HYPERTENSION (6) Hypothyroidism Code(s): E03.9 - HYPOTHYROIDISM, UNSPECIFIED Aspiration pneumonia Code(s): J69.0 - PNEUMONITIS DUE TO INHALATION OF FOOD AND VOMIT plan continue abx await for peg tube placement patient continues to be lethargic rest as per primary patient still with secretions and still sounding bad and congested chest physio
[2017-04-22] MEDS: MULTIVIT INJ. ADULT COMBO WITH VIT K 1 COMBO 10 ML VIAL IV SCH (21:36)
[2017-04-22] MEDS ORDERED: AMINO ACIDS 4.25%/D5W 1,000 ML IV SCH (22:00)
[2017-04-23] MEDS ORDERED: DEXTROSE 5%-WATER - 50 ML IVPB ONE ×3 (02:30→17:35)
[2017-04-23] MEDS ORDERED: PIPERACILLIN/TAZOBACTAM 3.375 GM VIAL IVPB ONE ×3 (02:30→17:35)
[2017-04-23] MEDS: METOPROLOL TARTRATE 5 MG/5 ML VIAL IVPB SCH ×4 (02:52→21:01)
[2017-04-23] MEDS: PIPERACILLIN/TAZOB 3.375 GM 3.375 GM in DEXTROSE 5%-WATER - 50 ML IVPB SCH ×3 (02:53→17:46)
[2017-04-23] MEDS: LEVOTHYROXINE SODIUM 100 MCG VIAL IVPUSH SCH (06:08)
[2017-04-23 10:31] LABS: BASOPHIL 1.1 % (0-2.0); EOSINOPHIL 5.5 % (0-4.5); MCHC 35.7 g/dl (32.0-36.0); MEAN PLT VOLUME 7.1 fl (7.5-11.1); NEUTROPHILS 60.9 % (42.8-82.8); PLATELET COUNT 127 K/MM3 (134-434); RDW 15.5 % (11.6-15.6); WHITE BLOOD COUNT 2.8 K/mm3 (4.0-10.0)
[2017-04-23 11:06] LABS: ANION GAP 8 (8-16); CALCIUM 8.3 mg/dL (8.5-10.1); CO2 23 mmol/L (21-32); CREATININE 0.8 mg/dL (0.55-1.02); GLUCOSE,RANDOM 223 mg/dL (74-106); MAGNESIUM 1.7 mg/dL (1.8-2.4); PHOSPHOROUS 2.3 mg/dL (2.5-4.9)
[2017-04-23] MEDS ORDERED: POTASSIUM PHOSPHATE 16 MM in SODIUM CHLORIDE 250 ML IVPB ONE (12:24)
--- NOTE | 2017-04-23 12:26 | PN ---
Progress Note, Physician Chief Complaint: Unable to obtain secondary to mental status - Current Medication List Current Medications: Active Medications Acetaminophen (Tylenol Suppository -) 650 mg [place] Q4H PRN PRN Reason: FEVER OR PAIN Last Admin: 04/18/17 14:07 Dose: 650 mg Piperacillin Sod/Tazobactam (Sod 3.375 gm/ Dextrose) 50 mls @ 100 mls/hr IVPB Q8H-IV JOCELYNE PRN Reason: Protocol Last Admin: 04/23/17 10:00 Dose: 100 mls/hr Potassium Phosphate 16 mm/ (Sodium Chloride) 255.3333 mls @ 62.5 mls/hr IVPB ONCE ONE Stop: 04/23/17 16:29 Levothyroxine Sodium (Synthroid Injection -) 44 mcg IVPUSH DAILY@0700 [facility] Last Admin: 04/23/17 06:08 Dose: 44 mcg Magnesium Sulfate (Magnesium Sulfate) 2 gm IVPB ONCE ONE Stop: 04/23/17 12:25 Metoprolol Tartrate (Lopressor Injection -) 2.5 mg IVPB Q6H-IV JOCELYNE Last Admin: 04/23/17 09:09 Dose: 2.5 mg Multivitamins/Minerals (Infuvite Adult -) 10 ml IV HS JOCELYNE Last Admin: 04/22/17 21:36 Dose: 10 ml - Objective Vital Signs: Vital Signs Temperature 36.8 C 04/23/17 09:00 Pulse Rate 89 04/23/17 09:09 Respiratory Rate 19 04/23/17 09:00 Blood Pressure 124/67 04/23/17 09:09 O2 Sat by Pulse Oximetry (%) 95 04/22/17 22:00 Constitutional: Yes: No Distress, Calm, Thin Cardiovascular: Yes: Regular Rate and Rhythm. No: Gallop, Murmur, Rub Respiratory: Yes: Regular, CTA Bilaterally. No: Rales, Rhonchi, Wheezes Gastrointestinal: Yes: Normal Bowel Sounds, Soft. No: Distention, Tenderness Extremities: Yes: WNL Edema: No Labs: CBC, BMP 04/23/17 10:14 04/23/17 10:14 INR, PTT INR 1.12 (0.82-1.09) 04/21/17 07:10 Problem List - Problems (1) UTI (urinary tract infection) Code(s): N39.0 - URINARY TRACT INFECTION, SITE NOT SPECIFIED (2) Dementia Code(s): F03.90 - UNSPECIFIED DEMENTIA WITHOUT BEHAVIORAL DISTURBANCE (3) Pancytopenia Code(s): D61.818 - OTHER PANCYTOPENIA (4) CHF (congestive heart failure) Code(s): I50.9 - HEART FAILURE, UNSPECIFIED Qualifiers: Congestive heart failure type: unspecified congestive heart failure type Congestive heart failure chronicity: chronic Qualified Code(s): I50.9 - Heart failure, unspecified; I50.9 - Heart failure, unspecified; I50.9 - Heart failure, unspecified; I50.9 - Heart failure, unspecified (5) HTN (hypertension) Code(s): I10 - ESSENTIAL (PRIMARY) HYPERTENSION (6) Hypothyroidism Code(s): E03.9 - HYPOTHYROIDISM, UNSPECIFIED (7) Aspiration pneumonia Code(s): J69.0 - PNEUMONITIS DUE TO INHALATION OF FOOD AND VOMIT Assessment/Plan (1) Aspiration pneumonia Assessment/Plan: -ID following and continuing zosyn Code(s): N39.0 - URINARY TRACT INFECTION, SITE NOT SPECIFIED (2) Dementia Assessment/Plan: -patient appears at baseline -planning for PEG tube, holding aspirin Code(s): F03.90 - UNSPECIFIED DEMENTIA WITHOUT BEHAVIORAL DISTURBANCE (3) Pancytopenia Assessment/Plan: -monitor Code(s): D61.818 - OTHER PANCYTOPENIA (4) CHF (congestive heart failure) Assessment/Plan: -not in exacerbation Code(s): I50.9 - HEART FAILURE, UNSPECIFIED Qualifiers: Congestive heart failure type: unspecified congestive heart failure type Congestive heart failure chronicity: chronic Qualified Code(s): I50.9 - Heart failure, unspecified (5) HTN (hypertension) Assessment/Plan: -continue IV metoprolol Code(s): I10 - ESSENTIAL (PRIMARY) HYPERTENSION (6) Hypothyroidism Assessment/Plan: -continue IV synthroid Code(s): E03.9 - HYPOTHYROIDISM, UNSPECIFIED (7) FEN -increase rate of clinimix
[2017-04-23] MEDS: AMINO ACIDS 4.25%/D5W 1,000 ML IV SCH ×2 (12:41→21:00)
[2017-04-23] MEDS ORDERED: MAGNESIUM SULF 50% (8.12 MEQ/2 ML-1 GM VIAL) IVPB ONE (12:45)
--- NOTE | 2017-04-23 14:52 | PN ---
Progress Note, Physician History of Present Illness: calm no new events plan for peg tube - Current Medication List Current Medications: Active Medications Acetaminophen (Tylenol Suppository -) 650 mg [place] Q4H PRN PRN Reason: FEVER OR PAIN Last Admin: 04/18/17 14:07 Dose: 650 mg Piperacillin Sod/Tazobactam (Sod 3.375 gm/ Dextrose) 50 mls @ 100 mls/hr IVPB Q8H-IV JOCELYNE PRN Reason: Protocol Last Admin: 04/23/17 10:00 Dose: 100 mls/hr Potassium Phosphate 16 mm/ (Sodium Chloride) 255.3333 mls @ 62.5 mls/hr IVPB ONCE ONE Stop: 04/23/17 16:29 Last Admin: 04/23/17 13:27 Dose: 62.5 mls/hr Amino Acids (Clinimix -) 1,000 mls @ 60 mls/hr IV Q16H JOCELYNE Last Admin: 04/23/17 12:41 Dose: 60 mls/hr Levothyroxine Sodium (Synthroid Injection -) 44 mcg IVPUSH DAILY@0700 [facility] Last Admin: 04/23/17 06:08 Dose: 44 mcg Metoprolol Tartrate (Lopressor Injection -) 2.5 mg IVPB Q6H-IV JOCELYNE Last Admin: 04/23/17 09:09 Dose: 2.5 mg Multivitamins/Minerals (Infuvite Adult -) 10 ml IV HS JOCELYNE Last Admin: 04/22/17 21:36 Dose: 10 ml - Objective Vital Signs: Vital Signs Temperature 98.2 F 04/23/17 09:00 Pulse Rate 89 04/23/17 09:09 Respiratory Rate 19 04/23/17 09:00 Blood Pressure 124/67 04/23/17 09:09 O2 Sat by Pulse Oximetry (%) 99 04/23/17 09:00 Constitutional: Yes: No Distress, Calm Cardiovascular: Yes: Regular Rate and Rhythm Respiratory: Yes: Regular, CTA Bilaterally Gastrointestinal: Yes: Normal Bowel Sounds, Soft Musculoskeletal: Yes: WNL Extremities: Yes: WNL Neurological: Yes: Alert, Other Labs: CBC, BMP 04/23/17 10:14 04/23/17 10:14 INR, PTT INR 1.12 (0.82-1.09) 04/21/17 07:10 Assessment/Plan Problem List - Problems (1) UTI (urinary tract infection) Code(s): N39.0 - URINARY TRACT INFECTION, SITE NOT SPECIFIED (2) Dementia Code(s): F03.90 - UNSPECIFIED DEMENTIA WITHOUT BEHAVIORAL DISTURBANCE (3) Pancytopenia Code(s): D61.818 - OTHER PANCYTOPENIA (4) CHF (congestive heart failure) Code(s): I50.9 - HEART FAILURE, UNSPECIFIED Qualifiers: Congestive heart failure type: unspecified congestive heart failure type Congestive heart failure chronicity: chronic Qualified Code(s): I50.9 - Heart failure, unspecified (5) HTN (hypertension) Code(s): I10 - ESSENTIAL (PRIMARY) HYPERTENSION (6) Hypothyroidism Code(s): E03.9 - HYPOTHYROIDISM, UNSPECIFIED Aspiration pneumonia Code(s): J69.0 - PNEUMONITIS DUE TO INHALATION OF FOOD AND VOMIT plan continue abx await for peg tube placement patient continues to be lethargic rest as per primary
[2017-04-23] MEDS: MULTIVIT INJ. ADULT COMBO WITH VIT K 1 COMBO 10 ML VIAL IV SCH (21:01)
[2017-04-23] MEDS: ACETAMINOPHEN 650 MG SUPP.RECT PR PRN (21:02)
[2017-04-24] MEDS ORDERED: DEXTROSE 5%-WATER - 50 ML IVPB ONE ×3 (01:30→16:57)
[2017-04-24] MEDS ORDERED: PIPERACILLIN/TAZOBACTAM 3.375 GM VIAL IVPB ONE ×3 (01:30→16:57)
[2017-04-24] MEDS: PIPERACILLIN/TAZOB 3.375 GM 3.375 GM in DEXTROSE 5%-WATER - 50 ML IVPB SCH ×3 (01:51→17:01)
[2017-04-24] MEDS: METOPROLOL TARTRATE 5 MG/5 ML VIAL IVPB SCH ×4 (02:48→21:56)
[2017-04-24] MEDS: AMINO ACIDS 4.25%/D5W 1,000 ML IV SCH ×3 (03:33→21:53)
[2017-04-24] MEDS ORDERED: PT OWN MED DRAWER 7, Y5N ONE (06:33)
[2017-04-24] MEDS: LEVOTHYROXINE SODIUM 100 MCG VIAL IVPUSH SCH (06:36)
[2017-04-24 08:57] LABS: BASOPHIL 0.8 % (0-2.0); EOSINOPHIL 5.7 % (0-4.5); MCH 36.5 pg (25.7-33.7); MCHC 35.9 g/dl (32.0-36.0); MEAN CELL VOLUME 101.6 fl (80-96); MEAN PLT VOLUME 7.5 fl (7.5-11.1); NEUTROPHILS 55.8 % (42.8-82.8); PLATELET COUNT 135 K/MM3 (134-434); RDW 16.2 % (11.6-15.6); WHITE BLOOD COUNT 2.7 K/mm3 (4.0-10.0)
[2017-04-24 09:15] LABS: ANION GAP 6 (8-16); CALCIUM 8.2 mg/dL (8.5-10.1); CO2 24 mmol/L (21-32); GLUCOSE,RANDOM 103 mg/dL (74-106); MAGNESIUM 2.2 mg/dL (1.8-2.4)
[2017-04-24 09:17] LABS: CREATININE 0.8 mg/dL (0.55-1.02); PHOSPHOROUS 2.2 mg/dL (2.5-4.9)
--- NOTE | 2017-04-24 12:45 | PN ---
Progress Note, Physician History of Present Illness: Pt seen and examined, chart and labs reviewed. Events noted. Pt currently without distress, is afebrile. Weak but responsive. - Current Medication List Current Medications: Active Medications Acetaminophen (Tylenol Suppository -) 650 mg [place] Q4H PRN PRN Reason: FEVER OR PAIN Last Admin: 04/23/17 21:02 Dose: 650 mg Piperacillin Sod/Tazobactam (Sod 3.375 gm/ Dextrose) 50 mls @ 100 mls/hr IVPB Q8H-IV JOCELYNE PRN Reason: Protocol Last Admin: 04/24/17 09:04 Dose: 100 mls/hr Amino Acids (Clinimix -) 1,000 mls @ 60 mls/hr IV Q16H JOCELYNE Last Admin: 04/24/17 03:33 Dose: Not Given Levothyroxine Sodium (Synthroid Injection -) 44 mcg IVPUSH DAILY@0700 [facility] Last Admin: 04/24/17 06:36 Dose: 44 mcg Metoprolol Tartrate (Lopressor Injection -) 2.5 mg IVPB Q6H-IV JOCELYNE Last Admin: 04/24/17 08:38 Dose: 2.5 mg Multivitamins/Minerals (Infuvite Adult -) 10 ml IV HS JOCELYNE Last Admin: 04/23/17 21:01 Dose: 10 ml - Objective Vital Signs: Vital Signs Temperature 97.6 F 04/24/17 06:25 Pulse Rate 74 04/24/17 08:38 Respiratory Rate 18 04/24/17 06:25 Blood Pressure 139/72 04/24/17 08:38 O2 Sat by Pulse Oximetry (%) 100 04/24/17 09:00 Constitutional: Yes: No Distress HENT: Yes: WNL Neck: Yes: WNL Cardiovascular: Yes: Regular Rate and Rhythm Respiratory: Yes: Regular, Other (poor inspiratory effort) Gastrointestinal: Yes: Normal Bowel Sounds, Soft Genitourinary: Yes: WNL Extremities: Yes: WNL, Other (SCDs on) Integumentary: Yes: WNL Labs: CBC, BMP 04/24/17 08:35 04/24/17 08:35 INR, PTT INR 1.12 (0.82-1.09) 04/21/17 07:10 Problem List - Problems (1) Pancytopenia Code(s): D61.818 - OTHER PANCYTOPENIA (2) Fever Code(s): R50.9 - FEVER, UNSPECIFIED (3) UTI (urinary tract infection) Code(s): N39.0 - URINARY TRACT INFECTION, SITE NOT SPECIFIED (4) Altered mental status, unspecified Code(s): R41.82 - ALTERED MENTAL STATUS, UNSPECIFIED Assessment/Plan Possible aspiration pneumonitis - at this time appears stable plan is for peg placement - will d/c antibiotics if remains stable
--- NOTE | 2017-04-24 16:39 | PN ---
Progress Note, Physician - Current Medication List Current Medications: Active Medications Acetaminophen (Tylenol Suppository -) 650 mg [place] Q4H PRN PRN Reason: FEVER OR PAIN Last Admin: 04/23/17 21:02 Dose: 650 mg Piperacillin Sod/Tazobactam (Sod 3.375 gm/ Dextrose) 50 mls @ 100 mls/hr IVPB Q8H-IV JOCELYNE PRN Reason: Protocol Last Admin: 04/24/17 09:04 Dose: 100 mls/hr Amino Acids (Clinimix -) 1,000 mls @ 60 mls/hr IV Q16H JOCELYNE Last Admin: 04/24/17 14:06 Dose: 60 mls/hr Levothyroxine Sodium (Synthroid Injection -) 44 mcg IVPUSH DAILY@0700 [facility] Last Admin: 04/24/17 06:36 Dose: 44 mcg Metoprolol Tartrate (Lopressor Injection -) 2.5 mg IVPB Q6H-IV JOCELYNE Last Admin: 04/24/17 14:06 Dose: 2.5 mg Multivitamins/Minerals (Infuvite Adult -) 10 ml IV HS [facility] Last Admin: 04/23/17 21:01 Dose: 10 ml - Objective Vital Signs: Vital Signs Temperature 99.1 F 04/24/17 14:33 Pulse Rate 89 04/24/17 14:33 Respiratory Rate 22 04/24/17 14:33 Blood Pressure 156/72 04/24/17 14:33 O2 Sat by Pulse Oximetry (%) 100 04/24/17 09:00 Constitutional: Yes: Calm HENT: Yes: Atraumatic Neck: Yes: Supple Cardiovascular: Yes: Regular Rate and Rhythm Respiratory: Yes: Rhonchi Gastrointestinal: Yes: Normal Bowel Sounds Extremities: Yes: WNL Edema: No Peripheral Pulses WNL: Yes Neurological: Yes: Alert Labs: CBC, BMP 04/24/17 08:35 04/24/17 08:35 INR, PTT INR 1.12 (0.82-1.09) 04/21/17 07:10 Problem List - Problems (1) Altered mental status, unspecified Assessment/Plan: seems confused Code(s): R41.82 - ALTERED MENTAL STATUS, UNSPECIFIED (2) Pancytopenia Assessment/Plan: monitor Code(s): D61.818 - OTHER PANCYTOPENIA (3) UTI (urinary tract infection) Assessment/Plan: on abx per id Code(s): N39.0 - URINARY TRACT INFECTION, SITE NOT SPECIFIED (4) Dementia Code(s): F03.90 - UNSPECIFIED DEMENTIA WITHOUT BEHAVIORAL DISTURBANCE (5) CHF (congestive heart failure) Assessment/Plan: stable Code(s): I50.9 - HEART FAILURE, UNSPECIFIED Qualifiers: Congestive heart failure type: unspecified congestive heart failure type Congestive heart failure chronicity: chronic Qualified Code(s): I50.9 - Heart failure, unspecified (6) HTN (hypertension) Assessment/Plan: on meds stable Code(s): I10 - ESSENTIAL (PRIMARY) HYPERTENSION (7) Hypothyroidism Assessment/Plan: on meds stable Code(s): E03.9 - HYPOTHYROIDISM, UNSPECIFIED Assessment/Plan covering dr bonilla
[2017-04-24] MEDS: MULTIVIT INJ. ADULT COMBO WITH VIT K 1 COMBO 10 ML VIAL IV SCH (21:51)
[2017-04-25] MEDS ORDERED: DEXTROSE 5%-WATER - 50 ML IVPB ONE ×3 (01:35→17:26)
[2017-04-25] MEDS ORDERED: PIPERACILLIN/TAZOBACTAM 3.375 GM VIAL IVPB ONE ×3 (01:35→17:25)
[2017-04-25] MEDS: METOPROLOL TARTRATE 5 MG/5 ML VIAL IVPB SCH ×4 (02:49→21:52)
[2017-04-25] MEDS: PIPERACILLIN/TAZOB 3.375 GM 3.375 GM in DEXTROSE 5%-WATER - 50 ML IVPB SCH ×3 (02:49→17:38)
[2017-04-25] MEDS: LEVOTHYROXINE SODIUM 100 MCG VIAL IVPUSH SCH (06:00)
[2017-04-25] MEDS: ASPIRIN 300 MG SUPP.RECT RC SCH (07:10)
[2017-04-25] MEDS: MULTIVIT INJ. ADULT COMBO WITH VIT K 1 COMBO 10 ML VIAL IV SCH ×2 (07:10→21:52)
[2017-04-25] MEDS ORDERED: PT OWN MED DRAWER 7, Y5N ONE (09:12)
--- NOTE | 2017-04-25 13:28 | PN ---
Progress Note, Physician History of Present Illness: stable no complaints - Current Medication List Current Medications: Active Medications Acetaminophen (Tylenol Suppository -) 650 mg [place] Q4H PRN PRN Reason: FEVER OR PAIN Last Admin: 04/23/17 21:02 Dose: 650 mg Piperacillin Sod/Tazobactam (Sod 3.375 gm/ Dextrose) 50 mls @ 100 mls/hr IVPB Q8H-IV JOCELYNE PRN Reason: Protocol Last Admin: 04/25/17 09:24 Dose: 100 mls/hr Amino Acids (Clinimix -) 1,000 mls @ 60 mls/hr IV Q16H JOCELYNE Last Admin: 04/24/17 21:53 Dose: 60 mls/hr Levothyroxine Sodium (Synthroid Injection -) 44 mcg IVPUSH DAILY@0700 [facility] Last Admin: 04/25/17 06:00 Dose: 44 mcg Metoprolol Tartrate (Lopressor Injection -) 2.5 mg IVPB Q6H-IV JOCELYNE Last Admin: 04/25/17 09:23 Dose: 2.5 mg Multivitamins/Minerals (Infuvite Adult -) 10 ml IV HS JOCELYNE Last Admin: 04/24/17 21:51 Dose: 10 ml - Objective Vital Signs: Vital Signs Temperature 97.5 F L 04/25/17 06:12 Pulse Rate 86 04/25/17 09:23 Respiratory Rate 18 04/25/17 09:00 Blood Pressure 136/71 04/25/17 09:23 O2 Sat by Pulse Oximetry (%) 100 04/24/17 22:00 Constitutional: Yes: No Distress HENT: Yes: Atraumatic Neck: Yes: Supple Cardiovascular: Yes: Regular Rate and Rhythm Respiratory: Yes: Rhonchi Gastrointestinal: Yes: Normal Bowel Sounds Extremities: Yes: WNL Edema: No Peripheral Pulses WNL: Yes Neurological: Yes: Alert Labs: CBC, BMP 04/24/17 08:35 04/24/17 08:35 INR, PTT INR 1.12 (0.82-1.09) 04/21/17 07:10 Problem List - Problems (1) Altered mental status, unspecified Assessment/Plan: seems confused Code(s): R41.82 - ALTERED MENTAL STATUS, UNSPECIFIED (2) Pancytopenia Assessment/Plan: monitor Code(s): D61.818 - OTHER PANCYTOPENIA (3) UTI (urinary tract infection) Assessment/Plan: on abx per id Code(s): N39.0 - URINARY TRACT INFECTION, SITE NOT SPECIFIED (4) Dementia Code(s): F03.90 - UNSPECIFIED DEMENTIA WITHOUT BEHAVIORAL DISTURBANCE (5) CHF (congestive heart failure) Assessment/Plan: stable Code(s): I50.9 - HEART FAILURE, UNSPECIFIED Qualifiers: Congestive heart failure type: unspecified congestive heart failure type Congestive heart failure chronicity: chronic Qualified Code(s): I50.9 - Heart failure, unspecified; I50.9 - Heart failure, unspecified; I50.9 - Heart failure, unspecified; I50.9 - Heart failure, unspecified (6) HTN (hypertension) Assessment/Plan: on meds stable Code(s): I10 - ESSENTIAL (PRIMARY) HYPERTENSION (7) Hypothyroidism Assessment/Plan: on meds stable Code(s): E03.9 - HYPOTHYROIDISM, UNSPECIFIED Assessment/Plan covering dr bonilla
[2017-04-25] MEDS: AMINO ACIDS 4.25%/D5W 1,000 ML IV SCH (14:11)
--- NOTE | 2017-04-25 14:52 | PN ---
Progress Note, Physician History of Present Illness: Pt is arousable, responsive but remains weak. Tmax 99.6F. - Current Medication List Current Medications: Active Medications Acetaminophen (Tylenol Suppository -) 650 mg [place] Q4H PRN PRN Reason: FEVER OR PAIN Last Admin: 04/23/17 21:02 Dose: 650 mg Piperacillin Sod/Tazobactam (Sod 3.375 gm/ Dextrose) 50 mls @ 100 mls/hr IVPB Q8H-IV JOCELYNE PRN Reason: Protocol Last Admin: 04/25/17 09:24 Dose: 100 mls/hr Amino Acids (Clinimix -) 1,000 mls @ 60 mls/hr IV Q16H JOCELYNE Last Admin: 04/25/17 14:11 Dose: Not Given Levothyroxine Sodium (Synthroid Injection -) 44 mcg IVPUSH DAILY@0700 [facility] Last Admin: 04/25/17 06:00 Dose: 44 mcg Metoprolol Tartrate (Lopressor Injection -) 2.5 mg IVPB Q6H-IV JOCELYNE Last Admin: 04/25/17 09:23 Dose: 2.5 mg Multivitamins/Minerals (Infuvite Adult -) 10 ml IV HS JOCELYNE Last Admin: 04/24/17 21:51 Dose: 10 ml - Objective Vital Signs: Vital Signs Temperature 99.6 F 04/25/17 14:39 Pulse Rate 86 04/25/17 14:39 Respiratory Rate 22 04/25/17 14:39 Blood Pressure 173/80 04/25/17 14:39 O2 Sat by Pulse Oximetry (%) 100 04/24/17 22:00 Constitutional: Yes: No Distress HENT: Yes: WNL Cardiovascular: Yes: Regular Rate and Rhythm Respiratory: Yes: Other (coarse breath sounds on Rt) Gastrointestinal: Yes: Normal Bowel Sounds, Soft Genitourinary: Yes: WNL Extremities: Yes: WNL Integumentary: Yes: WNL Neurological: Yes: Weakness Labs: CBC, BMP 04/24/17 08:35 04/24/17 08:35 INR, PTT INR 1.12 (0.82-1.09) 04/21/17 07:10 Problem List - Problems (1) Pancytopenia Code(s): D61.818 - OTHER PANCYTOPENIA (2) Fever Code(s): R50.9 - FEVER, UNSPECIFIED (3) UTI (urinary tract infection) Code(s): N39.0 - URINARY TRACT INFECTION, SITE NOT SPECIFIED (4) Altered mental status, unspecified Code(s): R41.82 - ALTERED MENTAL STATUS, UNSPECIFIED (5) Aspiration pneumonia Code(s): J69.0 - PNEUMONITIS DUE TO INHALATION OF FOOD AND VOMIT (6) CHF (congestive heart failure) Code(s): I50.9 - HEART FAILURE, UNSPECIFIED Qualifiers: Congestive heart failure type: unspecified congestive heart failure type Congestive heart failure chronicity: chronic Qualified Code(s): I50.9 - Heart failure, unspecified; I50.9 - Heart failure, unspecified; I50.9 - Heart failure, unspecified; I50.9 - Heart failure, unspecified Assessment/Plan Pt is verbally responsive to questions but remains weak, no respiratory distress. s/p UTI Pancytopenia Possible Aspiration/Pneumonitis -- d/c antibiotics after peg placement -- continue monitor temps maintain aspiration precautions remains relatively stable
[2017-04-26] MEDS ORDERED: PIPERACILLIN/TAZOBACTAM 3.375 GM VIAL IVPB ONE ×3 (01:04→17:04)
[2017-04-26] MEDS ORDERED: DEXTROSE 5%-WATER - 50 ML IVPB ONE ×3 (01:04→17:05)
[2017-04-26] MEDS: PIPERACILLIN/TAZOB 3.375 GM 3.375 GM in DEXTROSE 5%-WATER - 50 ML IVPB SCH ×3 (01:27→17:51)
[2017-04-26] MEDS: METOPROLOL TARTRATE 5 MG/5 ML VIAL IVPB SCH ×4 (02:00→21:14)
[2017-04-26] MEDS: AMINO ACIDS 4.25%/D5W 1,000 ML IV SCH ×2 (03:38→21:13)
[2017-04-26] MEDS: LEVOTHYROXINE SODIUM 100 MCG VIAL IVPUSH SCH (06:00)
--- NOTE | 2017-04-26 13:00 | PN ---
Progress Note, Physician Chief Complaint: Unable to obtain secondary to mental status - Current Medication List Current Medications: Active Medications Acetaminophen (Tylenol Suppository -) 650 mg [place] Q4H PRN PRN Reason: FEVER OR PAIN Last Admin: 04/23/17 21:02 Dose: 650 mg Piperacillin Sod/Tazobactam (Sod 3.375 gm/ Dextrose) 50 mls @ 100 mls/hr IVPB Q8H-IV JOCELYNE PRN Reason: Protocol Last Admin: 04/26/17 09:38 Dose: 100 mls/hr Amino Acids (Clinimix -) 1,000 mls @ 60 mls/hr IV Q16H JOCELYNE Last Admin: 04/26/17 03:38 Dose: 60 mls/hr Levothyroxine Sodium (Synthroid Injection -) 44 mcg IVPUSH DAILY@0700 [facility] Last Admin: 04/26/17 06:00 Dose: 44 mcg Metoprolol Tartrate (Lopressor Injection -) 2.5 mg IVPB Q6H-IV JOCELYNE Last Admin: 04/26/17 09:37 Dose: 2.5 mg Multivitamins/Minerals (Infuvite Adult -) 10 ml IV HS JOCELYNE Last Admin: 04/25/17 21:52 Dose: 10 ml - Objective Vital Signs: Vital Signs Temperature 37.3 C 04/26/17 07:00 Pulse Rate 91 H 04/26/17 09:37 Respiratory Rate 18 04/26/17 09:00 Blood Pressure 135/71 04/26/17 09:37 O2 Sat by Pulse Oximetry (%) 95 04/25/17 22:00 Constitutional: Yes: No Distress, Calm, Thin Cardiovascular: Yes: Regular Rate and Rhythm. No: Gallop, Murmur Respiratory: Yes: Regular, CTA Bilaterally, On Nasal O2. No: Rales, Rhonchi, Wheezes Gastrointestinal: Yes: Normal Bowel Sounds, Soft. No: Distention, Tenderness Extremities: Yes: WNL Edema: No Labs: CBC, BMP 04/24/17 08:35 04/24/17 08:35 INR, PTT INR 1.12 (0.82-1.09) 04/21/17 07:10 Problem List - Problems (1) UTI (urinary tract infection) Code(s): N39.0 - URINARY TRACT INFECTION, SITE NOT SPECIFIED (2) Dementia Code(s): F03.90 - UNSPECIFIED DEMENTIA WITHOUT BEHAVIORAL DISTURBANCE (3) Pancytopenia Code(s): D61.818 - OTHER PANCYTOPENIA (4) CHF (congestive heart failure) Code(s): I50.9 - HEART FAILURE, UNSPECIFIED Qualifiers: Congestive heart failure type: unspecified congestive heart failure type Congestive heart failure chronicity: chronic Qualified Code(s): I50.9 - Heart failure, unspecified; I50.9 - Heart failure, unspecified; I50.9 - Heart failure, unspecified; I50.9 - Heart failure, unspecified (5) HTN (hypertension) Code(s): I10 - ESSENTIAL (PRIMARY) HYPERTENSION (6) Hypothyroidism Code(s): E03.9 - HYPOTHYROIDISM, UNSPECIFIED (7) Aspiration pneumonia Code(s): J69.0 - PNEUMONITIS DUE TO INHALATION OF FOOD AND VOMIT Assessment/Plan (1) Aspiration pneumonia Assessment/Plan: -ID following and continuing zosyn Code(s): N39.0 - URINARY TRACT INFECTION, SITE NOT SPECIFIED (2) Dementia Assessment/Plan: -patient appears at baseline -planning for PEG tube, holding aspirin Code(s): F03.90 - UNSPECIFIED DEMENTIA WITHOUT BEHAVIORAL DISTURBANCE (3) Pancytopenia Assessment/Plan: -monitor Code(s): D61.818 - OTHER PANCYTOPENIA (4) CHF (congestive heart failure) Assessment/Plan: -not in exacerbation Code(s): I50.9 - HEART FAILURE, UNSPECIFIED Qualifiers: Congestive heart failure type: unspecified congestive heart failure type Congestive heart failure chronicity: chronic Qualified Code(s): I50.9 - Heart failure, unspecified (5) HTN (hypertension) Assessment/Plan: -continue IV metoprolol Code(s): I10 - ESSENTIAL (PRIMARY) HYPERTENSION (6) Hypothyroidism Assessment/Plan: -continue IV synthroid Code(s): E03.9 - HYPOTHYROIDISM, UNSPECIFIED (7) FEN -increase rate of clinimix -PEG tube planned for tomorrow Dispo -discharge planning once PEG tube is placed and stable
--- NOTE | 2017-04-26 13:44 | PN ---
Progress Note, Physician History of Present Illness: calm no new events plan for peg tube - Current Medication List Current Medications: Active Medications Acetaminophen (Tylenol Suppository -) 650 mg [place] Q4H PRN PRN Reason: FEVER OR PAIN Last Admin: 04/23/17 21:02 Dose: 650 mg Piperacillin Sod/Tazobactam (Sod 3.375 gm/ Dextrose) 50 mls @ 100 mls/hr IVPB Q8H-IV JOCELYNE PRN Reason: Protocol Last Admin: 04/26/17 09:38 Dose: 100 mls/hr Amino Acids (Clinimix -) 1,000 mls @ 60 mls/hr IV Q16H JOCELYNE Last Admin: 04/26/17 03:38 Dose: 60 mls/hr Levothyroxine Sodium (Synthroid Injection -) 44 mcg IVPUSH DAILY@0700 [facility] Last Admin: 04/26/17 06:00 Dose: 44 mcg Metoprolol Tartrate (Lopressor Injection -) 2.5 mg IVPB Q6H-IV JOCELYNE Last Admin: 04/26/17 09:37 Dose: 2.5 mg Multivitamins/Minerals (Infuvite Adult -) 10 ml IV HS JOCELYNE Last Admin: 04/25/17 21:52 Dose: 10 ml - Objective Vital Signs: Vital Signs Temperature 99.1 F 04/26/17 07:00 Pulse Rate 91 H 04/26/17 09:37 Respiratory Rate 18 04/26/17 09:00 Blood Pressure 135/71 04/26/17 09:37 O2 Sat by Pulse Oximetry (%) 95 04/25/17 22:00 Constitutional: Yes: No Distress, Calm Neck: Yes: Supple, Trachea Midline Cardiovascular: Yes: Regular Rate and Rhythm Respiratory: Yes: Regular Gastrointestinal: Yes: Normal Bowel Sounds, Soft Musculoskeletal: Yes: WNL Extremities: Yes: WNL Neurological: Yes: Alert, Other Psychiatric: Yes: Other Labs: CBC, BMP 04/24/17 08:35 04/24/17 08:35 INR, PTT INR 1.12 (0.82-1.09) 04/21/17 07:10 Assessment/Plan Problem List - Problems (1) UTI (urinary tract infection) Code(s): N39.0 - URINARY TRACT INFECTION, SITE NOT SPECIFIED (2) Dementia Code(s): F03.90 - UNSPECIFIED DEMENTIA WITHOUT BEHAVIORAL DISTURBANCE (3) Pancytopenia Code(s): D61.818 - OTHER PANCYTOPENIA (4) CHF (congestive heart failure) Code(s): I50.9 - HEART FAILURE, UNSPECIFIED Qualifiers: Congestive heart failure type: unspecified congestive heart failure type Congestive heart failure chronicity: chronic Qualified Code(s): I50.9 - Heart failure, unspecified (5) HTN (hypertension) Code(s): I10 - ESSENTIAL (PRIMARY) HYPERTENSION (6) Hypothyroidism Code(s): E03.9 - HYPOTHYROIDISM, UNSPECIFIED Aspiration pneumonia Code(s): J69.0 - PNEUMONITIS DUE TO INHALATION OF FOOD AND VOMIT plan continue abx await for peg tube placement patient continues to be lethargic rest as per primary
[2017-04-26] MEDS ORDERED: PT OWN MED DRAWER 7, Y5N ONE (21:04)
[2017-04-26] MEDS: MULTIVIT INJ. ADULT COMBO WITH VIT K 1 COMBO 10 ML VIAL IV SCH (21:15)
[2017-04-27] MEDS ORDERED: PIPERACILLIN/TAZOBACTAM 3.375 GM VIAL IVPB ONE ×3 (00:54→18:10)
[2017-04-27] MEDS ORDERED: DEXTROSE 5%-WATER - 50 ML IVPB ONE ×3 (00:56→18:10)
[2017-04-27] MEDS: PIPERACILLIN/TAZOB 3.375 GM 3.375 GM in DEXTROSE 5%-WATER - 50 ML IVPB SCH ×3 (01:08→18:13)
[2017-04-27] MEDS: METOPROLOL TARTRATE 5 MG/5 ML VIAL IVPB SCH ×4 (03:26→20:35)
[2017-04-27] MEDS ORDERED: PT OWN MED DRAWER 7, Y5N ONE (05:30)
[2017-04-27] MEDS: LEVOTHYROXINE SODIUM 100 MCG VIAL IVPUSH SCH (06:34)
[2017-04-27 08:21] LABS: WHITE BLOOD COUNT 2.9 K/mm3 (4.0-10.0)
[2017-04-27 08:32] LABS: INR 1.2 (0.82-1.09); PROTHROMBIN TIME (PATIENT) 13.3 SEC (9.98-11.88)
[2017-04-27 08:35] LABS: ANION GAP 7 (8-16); CALCIUM 8.6 mg/dL (8.5-10.1); CO2 25 mmol/L (21-32); GLUCOSE,RANDOM 115 mg/dL (74-106); MAGNESIUM 1.7 mg/dL (1.8-2.4)
[2017-04-27 08:36] LABS: CREATININE 0.8 mg/dL (0.55-1.02); PHOSPHOROUS 1.4 mg/dL (2.5-4.9)
[2017-04-27 08:37] LABS: BASOPHIL 0.3 % (0-2.0); MCH 36.7 pg (25.7-33.7); MCHC 36.8 g/dl (32.0-36.0); MEAN CELL VOLUME 99.8 fl (80-96); MEAN PLT VOLUME 7.3 fl (7.5-11.1); NEUTROPHILS 55.7 % (42.8-82.8); PLATELET COUNT 138 K/MM3 (134-434)
[2017-04-27] MEDS ORDERED: POTASSIUM PHOSPHATE 16 MM in SODIUM CHLORIDE 250 ML IVPB ONE (10:00)
[2017-04-27] MEDS ORDERED: MAGNESIUM SULF 50% (8.12 MEQ/2 ML-1 GM VIAL) IVPB ONE (10:00)
[2017-04-27] MEDS: KCL 10 MEQ IVPB 100 ML IVPB SCH ×3 (10:29→17:30)
[2017-04-27] MEDS: AMINO ACIDS 4.25%/D5W 1,000 ML IV SCH ×2 (12:26→21:50)
--- NOTE | 2017-04-27 13:18 | PN ---
Progress Note, Physician Chief Complaint: Unable to obtain secondary to mental status - Current Medication List Current Medications: Active Medications Acetaminophen (Tylenol Suppository -) 650 mg [place] Q4H PRN PRN Reason: FEVER OR PAIN Last Admin: 04/23/17 21:02 Dose: 650 mg Piperacillin Sod/Tazobactam (Sod 3.375 gm/ Dextrose) 50 mls @ 100 mls/hr IVPB Q8H-IV JOCELYNE PRN Reason: Protocol Last Admin: 04/27/17 09:39 Dose: 100 mls/hr Amino Acids (Clinimix -) 1,000 mls @ 60 mls/hr IV Q16H JOCELYNE Last Admin: 04/26/17 21:13 Dose: 60 mls/hr Potassium Phosphate 16 mm/ (Sodium Chloride) 255.3333 mls @ 62.5 mls/hr IVPB ONCE ONE Stop: 04/27/17 14:05 Levothyroxine Sodium (Synthroid Injection -) 44 mcg IVPUSH DAILY@0700 [facility] Last Admin: 04/27/17 06:34 Dose: 44 mcg Metoprolol Tartrate (Lopressor Injection -) 2.5 mg IVPB Q6H-IV JOCELYNE Last Admin: 04/27/17 09:40 Dose: 2.5 mg Multivitamins/Minerals (Infuvite Adult -) 10 ml IV HS JOCELYNE Last Admin: 04/26/17 21:15 Dose: 10 ml - Objective Vital Signs: Vital Signs Temperature 36.7 C 04/27/17 09:00 Pulse Rate 89 04/27/17 09:40 Respiratory Rate 16 04/27/17 09:00 Blood Pressure 126/89 04/27/17 09:40 O2 Sat by Pulse Oximetry (%) 97 04/26/17 21:00 Constitutional: Yes: No Distress, Calm, Thin Cardiovascular: Yes: Regular Rate and Rhythm. No: Gallop, Murmur, Rub Respiratory: Yes: Regular, On Nasal O2, Rhonchi. No: CTA Bilaterally, Rales, Wheezes Gastrointestinal: Yes: Normal Bowel Sounds, Soft. No: Distention, Tenderness Extremities: Yes: WNL Edema: No Labs: CBC, BMP 04/27/17 06:45 04/27/17 06:45 INR, PTT INR 1.20 (0.82-1.09) H 10/03/17 06:45 Problem List - Problems (1) UTI (urinary tract infection) Code(s): N39.0 - URINARY TRACT INFECTION, SITE NOT SPECIFIED (2) Dementia Code(s): F03.90 - UNSPECIFIED DEMENTIA WITHOUT BEHAVIORAL DISTURBANCE (3) Pancytopenia Code(s): D61.818 - OTHER PANCYTOPENIA (4) CHF (congestive heart failure) Code(s): I50.9 - HEART FAILURE, UNSPECIFIED Qualifiers: Congestive heart failure type: unspecified congestive heart failure type Congestive heart failure chronicity: chronic Qualified Code(s): I50.9 - Heart failure, unspecified; I50.9 - Heart failure, unspecified; I50.9 - Heart failure, unspecified; I50.9 - Heart failure, unspecified (5) HTN (hypertension) Code(s): I10 - ESSENTIAL (PRIMARY) HYPERTENSION (6) Hypothyroidism Code(s): E03.9 - HYPOTHYROIDISM, UNSPECIFIED (7) Aspiration pneumonia Code(s): J69.0 - PNEUMONITIS DUE TO INHALATION OF FOOD AND VOMIT Assessment/Plan (1) Aspiration pneumonia Assessment/Plan: -ID following and continuing zosyn Code(s): N39.0 - URINARY TRACT INFECTION, SITE NOT SPECIFIED (2) Dementia Assessment/Plan: -patient appears at baseline -planning for PEG tube, holding aspirin Code(s): F03.90 - UNSPECIFIED DEMENTIA WITHOUT BEHAVIORAL DISTURBANCE (3) Pancytopenia Assessment/Plan: -monitor Code(s): D61.818 - OTHER PANCYTOPENIA (4) CHF (congestive heart failure) Assessment/Plan: -not in exacerbation Code(s): I50.9 - HEART FAILURE, UNSPECIFIED Qualifiers: Congestive heart failure type: unspecified congestive heart failure type Congestive heart failure chronicity: chronic Qualified Code(s): I50.9 - Heart failure, unspecified (5) HTN (hypertension) Assessment/Plan: -continue IV metoprolol Code(s): I10 - ESSENTIAL (PRIMARY) HYPERTENSION (6) Hypothyroidism Assessment/Plan: -continue IV synthroid Code(s): E03.9 - HYPOTHYROIDISM, UNSPECIFIED (7) FEN -continue current rate of clinimix -replace potassium, magnesium, and phosphorus Dispo -discharge planning once PEG tube is placed and stable
--- NOTE | 2017-04-27 14:47 | PN ---
Progress Note, Physician History of Present Illness: patient with peg tube placement done no major events - Current Medication List Current Medications: Active Medications Acetaminophen (Tylenol Suppository -) 650 mg [place] Q4H PRN PRN Reason: FEVER OR PAIN Last Admin: 04/23/17 21:02 Dose: 650 mg Piperacillin Sod/Tazobactam (Sod 3.375 gm/ Dextrose) 50 mls @ 100 mls/hr IVPB Q8H-IV JOCELYNE PRN Reason: Protocol Last Admin: 04/27/17 09:39 Dose: 100 mls/hr Amino Acids (Clinimix -) 1,000 mls @ 60 mls/hr IV Q16H JOCELYNE Last Admin: 04/26/17 21:13 Dose: 60 mls/hr Levothyroxine Sodium (Synthroid Injection -) 44 mcg IVPUSH DAILY@0700 [facility] Last Admin: 04/27/17 06:34 Dose: 44 mcg Metoprolol Tartrate (Lopressor Injection -) 2.5 mg IVPB Q6H-IV JOCELYNE Last Admin: 04/27/17 09:40 Dose: 2.5 mg Multivitamins/Minerals (Infuvite Adult -) 10 ml IV HS JOCELYNE Last Admin: 04/26/17 21:15 Dose: 10 ml - Objective Vital Signs: Vital Signs Temperature 98.2 F 04/27/17 14:38 Pulse Rate 113 H 04/27/17 14:38 Respiratory Rate 18 04/27/17 14:38 Blood Pressure 126/63 04/27/17 14:38 O2 Sat by Pulse Oximetry (%) 98 04/27/17 09:00 Constitutional: Yes: No Distress, Calm Cardiovascular: Yes: Regular Rate and Rhythm Respiratory: Yes: Regular, Rhonchi Gastrointestinal: Yes: Normal Bowel Sounds, Soft, Other (peg in place) Musculoskeletal: Yes: WNL Extremities: Yes: WNL Neurological: Yes: Alert, Oriented Psychiatric: Yes: Alert, Oriented Labs: CBC, BMP 04/27/17 06:45 04/27/17 06:45 INR, PTT INR 1.20 (0.82-1.09) H 04/27/17 06:45 Assessment/Plan Problem List - Problems (1) UTI (urinary tract infection) Code(s): N39.0 - URINARY TRACT INFECTION, SITE NOT SPECIFIED (2) Dementia Code(s): F03.90 - UNSPECIFIED DEMENTIA WITHOUT BEHAVIORAL DISTURBANCE (3) Pancytopenia Code(s): D61.818 - OTHER PANCYTOPENIA (4) CHF (congestive heart failure) Code(s): I50.9 - HEART FAILURE, UNSPECIFIED Qualifiers: Congestive heart failure type: unspecified congestive heart failure type Congestive heart failure chronicity: chronic Qualified Code(s): I50.9 - Heart failure, unspecified (5) HTN (hypertension) Code(s): I10 - ESSENTIAL (PRIMARY) HYPERTENSION (6) Hypothyroidism Code(s): E03.9 - HYPOTHYROIDISM, UNSPECIFIED Aspiration pneumonia Code(s): J69.0 - PNEUMONITIS DUE TO INHALATION OF FOOD AND VOMIT plan will stop abx tomorrow continue as per the team
[2017-04-27] MEDS: MULTIVIT INJ. ADULT COMBO WITH VIT K 1 COMBO 10 ML VIAL IV SCH (21:46)
[2017-04-28] MEDS ORDERED: PIPERACILLIN/TAZOBACTAM 3.375 GM VIAL IVPB ONE ×3 (02:02→21:02)
[2017-04-28] MEDS ORDERED: DEXTROSE 5%-WATER - 50 ML IVPB ONE ×3 (02:02→21:02)
[2017-04-28] MEDS: PIPERACILLIN/TAZOB 3.375 GM 3.375 GM in DEXTROSE 5%-WATER - 50 ML IVPB SCH ×4 (02:22→21:38)
[2017-04-28] MEDS: METOPROLOL TARTRATE 5 MG/5 ML VIAL IVPB SCH ×4 (03:59→22:11)
[2017-04-28] MEDS: AMINO ACIDS 4.25%/D5W 1,000 ML IV SCH ×2 (04:05→21:38)
[2017-04-28] MEDS ORDERED: PT OWN MED DRAWER 7, Y5N ONE (05:55)
[2017-04-28] MEDS: LEVOTHYROXINE SODIUM 100 MCG VIAL IVPUSH SCH (06:06)
[2017-04-28 07:09] LABS: BASOPHIL 0.6 % (0-2.0); MCH 36.6 pg (25.7-33.7); MCHC 36.6 g/dl (32.0-36.0); MEAN PLT VOLUME 7.2 fl (7.5-11.1); NEUTROPHILS 59.1 % (42.8-82.8); PLATELET COUNT 125 K/MM3 (134-434); RDW 16.3 % (11.6-15.6); WHITE BLOOD COUNT 2.1 K/mm3 (4.0-10.0)
[2017-04-28 07:30] LABS: ANION GAP 10 (8-16); CO2 22 mmol/L (21-32); CREATININE 0.7 mg/dL (0.55-1.02); GLUCOSE,RANDOM 130 mg/dL (74-106); PHOSPHOROUS 1.5 mg/dL (2.5-4.9)
[2017-04-28] MEDS: KCL 10 MEQ IVPB 100 ML IVPB SCH ×3 (08:10→13:21)
[2017-04-28] MEDS ORDERED: POTASSIUM PHOSPHATE 16 MM in SODIUM CHLORIDE 250 ML IVPB ONE (14:00)
[2017-04-28 14:11] LABS: FERRITIN 81.31 ng/ml (6.9-282.5)
[2017-04-28] MEDS: ACETAMINOPHEN 650 MG SUPP.RECT PR PRN (14:54)
[2017-04-28] MEDS: NAPH,MB-DB/K PH,MBDB POWDER PACKET NGT SCH ×2 (14:58→21:47)
--- NOTE | 2017-04-28 15:14 | PN ---
Progress Note, Physician Chief Complaint: Unable to obtain secondary to mental status - Current Medication List Current Medications: Active Medications Acetaminophen (Tylenol Suppository -) 650 mg [place] Q4H PRN PRN Reason: FEVER OR PAIN Last Admin: 04/28/17 14:54 Dose: 650 mg Furosemide (Lasix Injection -) 20 mg IVPUSH [employer] ONE Stop: 04/28/17 17:01 Piperacillin Sod/Tazobactam (Sod 3.375 gm/ Dextrose) 50 mls @ 100 mls/hr IVPB Q8H-IV JOCELYNE PRN Reason: Protocol Last Admin: 04/28/17 10:32 Dose: 100 mls/hr Amino Acids (Clinimix -) 1,000 mls @ 60 mls/hr IV Q16H JOCELYNE Last Admin: 04/28/17 04:05 Dose: 60 mls/hr Levothyroxine Sodium (Synthroid Injection -) 44 mcg IVPUSH DAILY@0700 [facility] Last Admin: 04/28/17 06:06 Dose: 44 mcg Metoprolol Tartrate (Lopressor Injection -) 2.5 mg IVPB Q6H-IV JOCELYNE Last Admin: 04/28/17 14:45 Dose: 2.5 mg Multivitamins/Minerals (Infuvite Adult -) 10 ml IV HS JOCELYNE Last Admin: 04/27/17 21:46 Dose: 10 ml Potassium Phos/Sodium Phos (Phos-Nak Packet -) 1 packet NGT TID JOCELYNE Last Admin: 04/28/17 14:58 Dose: 1 packet - Objective Vital Signs: Vital Signs Temperature 38.1 C H 04/28/17 14:30 Pulse Rate 88 04/28/17 14:45 Respiratory Rate 18 04/28/17 14:30 Blood Pressure 140/60 04/28/17 14:45 O2 Sat by Pulse Oximetry (%) 99 04/28/17 09:00 Constitutional: Yes: No Distress, Calm, Thin Cardiovascular: Yes: Regular Rate and Rhythm. No: Gallop, Murmur, Rub Respiratory: Yes: Regular, On Nasal O2, Rhonchi. No: CTA Bilaterally, Rales, Wheezes Gastrointestinal: Yes: Normal Bowel Sounds, Soft. No: Distention, Tenderness Extremities: Yes: WNL Edema: No Labs: CBC, BMP 04/28/17 06:10 04/28/17 06:10 INR, PTT INR 1.20 (0.82-1.09) H 04/27/17 06:45 Problem List - Problems (1) UTI (urinary tract infection) Code(s): N39.0 - URINARY TRACT INFECTION, SITE NOT SPECIFIED (2) Dementia Code(s): F03.90 - UNSPECIFIED DEMENTIA WITHOUT BEHAVIORAL DISTURBANCE (3) Pancytopenia Code(s): D61.818 - OTHER PANCYTOPENIA (4) CHF (congestive heart failure) Code(s): I50.9 - HEART FAILURE, UNSPECIFIED Qualifiers: Congestive heart failure type: unspecified congestive heart failure type Congestive heart failure chronicity: chronic Qualified Code(s): I50.9 - Heart failure, unspecified; I50.9 - Heart failure, unspecified; I50.9 - Heart failure, unspecified; I50.9 - Heart failure, unspecified (5) HTN (hypertension) Code(s): I10 - ESSENTIAL (PRIMARY) HYPERTENSION (6) Hypothyroidism Code(s): E03.9 - HYPOTHYROIDISM, UNSPECIFIED (7) Aspiration pneumonia Code(s): J69.0 - PNEUMONITIS DUE TO INHALATION OF FOOD AND VOMIT Assessment/Plan (1) Aspiration pneumonia Assessment/Plan: -ID following and continuing zosyn Code(s): N39.0 - URINARY TRACT INFECTION, SITE NOT SPECIFIED (2) Dementia Assessment/Plan: -patient appears at baseline -planning for PEG tube, holding aspirin Code(s): F03.90 - UNSPECIFIED DEMENTIA WITHOUT BEHAVIORAL DISTURBANCE (3) Pancytopenia Assessment/Plan: -monitor Code(s): D61.818 - OTHER PANCYTOPENIA (4) CHF (congestive heart failure) Assessment/Plan: -not in exacerbation Code(s): I50.9 - HEART FAILURE, UNSPECIFIED Qualifiers: Congestive heart failure type: unspecified congestive heart failure type Congestive heart failure chronicity: chronic Qualified Code(s): I50.9 - Heart failure, unspecified (5) HTN (hypertension) Assessment/Plan: -continue IV metoprolol Code(s): I10 - ESSENTIAL (PRIMARY) HYPERTENSION (6) Hypothyroidism Assessment/Plan: -continue IV synthroid Code(s): E03.9 - HYPOTHYROIDISM, UNSPECIFIED (7) FEN -continue current rate of clinimix -replace potassium and phosphorus (8) Anemia -patient steadily declining H/H -macrocytic, suspect nutritional -check anemia labs -transfuse 2 units
--- NOTE | 2017-04-28 16:30 | PN ---
Progress Note, Physician History of Present Illness: patient stable events noted from yesterday plan is for peg tube tomorrow patients wbc and h and h are very low patient had a low grade temp - Current Medication List Current Medications: Active Medications Acetaminophen (Tylenol Suppository -) 650 mg [place] Q4H PRN PRN Reason: FEVER OR PAIN Last Admin: 04/28/17 14:54 Dose: 650 mg Furosemide (Lasix Injection -) 20 mg IVPUSH [employer] ONE Stop: 04/28/17 17:01 Piperacillin Sod/Tazobactam (Sod 3.375 gm/ Dextrose) 50 mls @ 100 mls/hr IVPB Q8H-IV JOCELYNE PRN Reason: Protocol Last Admin: 04/28/17 10:32 Dose: 100 mls/hr Amino Acids (Clinimix -) 1,000 mls @ 60 mls/hr IV Q16H JOCELYNE Last Admin: 04/28/17 04:05 Dose: 60 mls/hr Levothyroxine Sodium (Synthroid Injection -) 44 mcg IVPUSH DAILY@0700 [facility] Last Admin: 04/28/17 06:06 Dose: 44 mcg Metoprolol Tartrate (Lopressor Injection -) 2.5 mg IVPB Q6H-IV JOCELYNE Last Admin: 04/28/17 14:45 Dose: 2.5 mg Multivitamins/Minerals (Infuvite Adult -) 10 ml IV HS [facility] Last Admin: 04/27/17 21:46 Dose: 10 ml Potassium Phos/Sodium Phos (Phos-Nak Packet -) 1 packet NGT TID [facility] Last Admin: 04/28/17 14:58 Dose: 1 packet - Objective Vital Signs: Vital Signs Temperature 99.9 F H 04/28/17 15:45 Pulse Rate 84 04/28/17 15:45 Respiratory Rate 18 04/28/17 15:45 Blood Pressure 136/76 04/28/17 15:45 O2 Sat by Pulse Oximetry (%) 99 04/28/17 09:00 Constitutional: Yes: No Distress, Calm Cardiovascular: Yes: Regular Rate and Rhythm Respiratory: Yes: Regular, CTA Bilaterally Gastrointestinal: Yes: Normal Bowel Sounds, Soft Musculoskeletal: Yes: Other Extremities: Yes: WNL Neurological: Yes: Alert Psychiatric: Yes: Alert Labs: CBC, BMP 04/28/17 06:10 04/28/17 06:10 INR, PTT INR 1.20 (0.82-1.09) H 04/27/17 06:45 Assessment/Plan Problem List - Problems (1) UTI (urinary tract infection) Code(s): N39.0 - URINARY TRACT INFECTION, SITE NOT SPECIFIED (2) Dementia Code(s): F03.90 - UNSPECIFIED DEMENTIA WITHOUT BEHAVIORAL DISTURBANCE (3) Pancytopenia Code(s): D61.818 - OTHER PANCYTOPENIA (4) CHF (congestive heart failure) Code(s): I50.9 - HEART FAILURE, UNSPECIFIED Qualifiers: Congestive heart failure type: unspecified congestive heart failure type Congestive heart failure chronicity: chronic Qualified Code(s): I50.9 - Heart failure, unspecified (5) HTN (hypertension) Code(s): I10 - ESSENTIAL (PRIMARY) HYPERTENSION (6) Hypothyroidism Code(s): E03.9 - HYPOTHYROIDISM, UNSPECIFIED Aspiration pneumonia Code(s): J69.0 - PNEUMONITIS DUE TO INHALATION OF FOOD AND VOMIT plan continue abx patient for transfusion nutrition rest conitnue current mgmt
[2017-04-28] MEDS ORDERED: FUROSEMIDE 40 MG/4 ML INJECTABLE VIAL IVPUSH ONE ×2 (17:00→21:30)
--- NOTE | 2017-04-28 19:14 | HOSP ---
Subjective - Review of Symptoms Events since last encounter: 82yo F with PMH of dementia presenting with new onset Right-sided facial droop per nurse. Pt is unable to give history at baseline 2/2 dementia. Pt at baseline mentation per nurse. Physical Examination Vital Signs: Vital Signs Temperature 100.1 F H 04/28/17 16:10 Pulse Rate 96 H 04/28/17 16:10 Respiratory Rate 18 04/28/17 16:10 Blood Pressure 136/80 04/28/17 16:10 O2 Sat by Pulse Oximetry (%) 99 04/28/17 09:00 Constitutional: Yes: Well Nourished, No Distress, Other (lethargic, responsive to physical stimuli) Eyes: Yes: Conjunctiva Clear, Other (Right eye droop appreciated). No: Sclera Icterus HENT: Yes: Atraumatic, Normocephalic, Other (Right corner of mouth droop appreciated). No: Drooling, Rhinnorhea Neck: Yes: Supple, Trachea Midline Cardiovascular: Yes: Regular Rate and Rhythm, S1, S2 Respiratory: Yes: CTA Bilaterally. No: Accessory Muscle Use Gastrointestinal: Yes: Soft. No: Distention Extremities: Yes: WNL. No: Erythema Edema: No Integumentary: No: Erythema, Jaundice Neurological: Yes: Facial Droop. No: Loss of Sensation (Sensation to painful stimuli intact on irving upper and lower extremities. Unable to assess strength as pt unable to follow basic commands.) Labs: CBC, BMP 04/28/17 06:10 04/28/17 06:10 Hospitalist Encounter Assessment: Pt anemic and hypokalemic, receiving PRBCs on exam and potassium repletion given today. F/u cmp ordered for 22:00. Weakness may be present 2/2 anemia and /or hypokalemia. Stat EKG to assess for arrhythmia -> NSR Stat Head CT non-contrast to assess for stroke Will f/u 19:30 CMP -> hypokalemia resolved Head CT non-contrast -> no definite evidence of acute intracranial pathology. Possible normal pressure hydrocephalus vs atrophy, causing moderate ventricular dilatation. Acute pansinusitis noted. Interval development of small to moderate amount of Right mastoid fluid accumulation noted. Visit type - Emergency Visit Emergency Visit: Yes ED Registration Date: 04/01/17 Care time: The patient presented to the Emergency Department on the above date and was hospitalized for further evaluation of their emergent condition. - New Patient This patient is new to me today: Yes Date on this admission: 04/29/17 - Critical Care Critical Care patient: No
[2017-04-28] MEDS: MULTIVIT INJ. ADULT COMBO WITH VIT K 1 COMBO 10 ML VIAL IV SCH (21:39)
[2017-04-28 21:47] LABS: ANION GAP 6 (8-16); CALCIUM 8.8 mg/dL (8.5-10.1); CO2 23 mmol/L (21-32); CREATININE 0.6 mg/dL (0.55-1.02); GLUCOSE,RANDOM 94 mg/dL (74-106); PHOSPHOROUS 1.9 mg/dL (2.5-4.9)
[2017-04-28 23:43] LABS: URINE APPEARANCE CLEAR; URINE BILIRUBIN NEGATIVE (NEGATIVE); URINE BLOOD NEGATIVE (NEGATIVE); URINE COLOR COLORLESS; URINE GLUCOSE (UA) NEGATIVE (NEGATIVE); URINE KETONE NEGATIVE (NEGATIVE); URINE LEUK ESTERASE NEGATIVE (NEGATIVE); URINE NITRITE NEGATIVE (NEGATIVE); URINE PROTEIN NEGATIVE (NEGATIVE); URINE UROBILINOGEN NEGATIVE mg/dL (0.2-1.0)
[2017-04-29] MEDS ORDERED: PIPERACILLIN/TAZOBACTAM 3.375 GM VIAL IVPB ONE ×2 (02:06→10:15)
[2017-04-29] MEDS ORDERED: DEXTROSE 5%-WATER - 50 ML IVPB ONE ×2 (02:07→10:16)
[2017-04-29] MEDS: PIPERACILLIN/TAZOB 3.375 GM 3.375 GM in DEXTROSE 5%-WATER - 50 ML IVPB SCH ×2 (02:28→10:25)
[2017-04-29] MEDS: METOPROLOL TARTRATE 5 MG/5 ML VIAL IVPB SCH ×4 (02:29→20:56)
[2017-04-29] MEDS: NAPH,MB-DB/K PH,MBDB POWDER PACKET NGT SCH ×3 (06:28→21:23)
[2017-04-29] MEDS: LEVOTHYROXINE SODIUM 100 MCG VIAL IVPUSH SCH (06:28)
[2017-04-29 07:21] LABS: BASOPHIL 0.8 % (0-2.0); EOSINOPHIL 6.4 % (0-4.5); MCH 32.8 pg (25.7-33.7); MCHC 35.4 g/dl (32.0-36.0); MEAN CELL VOLUME 92.7 fl (80-96); MEAN PLT VOLUME 7.3 fl (7.5-11.1); NEUTROPHILS 62.4 % (42.8-82.8); PLATELET COUNT 128 K/MM3 (134-434); RDW 19.6 % (11.6-15.6); WHITE BLOOD COUNT 3.4 K/mm3 (4.0-10.0)
[2017-04-29 08:06] LABS: ANION GAP 13 (8-16); CALCIUM 8.6 mg/dL (8.5-10.1); CO2 21 mmol/L (21-32); CREATININE 0.7 mg/dL (0.55-1.02); GLUCOSE,RANDOM 107 mg/dL (74-106); PHOSPHOROUS 2.2 mg/dL (2.5-4.9)
[2017-04-29 08:07] LABS: SERUM IRON 71 ug/dL (27-139); TOTAL IRON BINDING CAPACITY 227 ug/dL (250-450); TRANSFERRIN 183 mg/dL (200-370); UIBC 156 ug/dL (118-369)
[2017-04-29 08:14] LABS: MAGNESIUM 1.9 mg/dL (1.8-2.4)
--- NOTE | 2017-04-29 11:42 | PN ---
Progress Note (short form) - Note Progress Note: GI CONSULTATION: PLEASE SEE FULL DICTATION 82F WITH MULTIPLE MEDICAL PROBLEMS WHO HAS BEEN HOSPITALIZED FOR OVER 3 WEEKS PT WAS TO GO FOR A PERCUTANEOUS GASTROSTOMY PLACEMENT BY IR WE WERE CALLED FRO DROP IN HGB TO 7.1 NO OVERT BLEEDING NOTED NO GI C/O NOTED NO SIGNIFICANT PRIOR GI HX NOTED ON MY EXAM, STOOL IS VERY LIGHT JOHNSON/ ALVAREZ AND G+++ UNCLEAR SOURCE OF BLEEDING, BUT PT HAS ALSO HAD SLIGHT RISE IN BUN RAISING ? OF A GI CULPRIT PROXIMAL TO THE RIGHT COLON AND POSSIBLY THE UGI TRACT HAVE SPOKEN TO IR PT MAY BENEFIT FROM LUMINAL VISUALIZATION PRIOR TO GT PLACEMENT SO TO NOT ACCELERATE A BLEEDING CULPRIT UNCLEAR WISHES OF FAM,[place] PT UNABLE TO GIVE CONSENT DUE TO DEMENTIA IF FAMILY WISHES A DX APPROACH WITH POSSIBLE TREATMENT OF BLEEDING, THEN WOULD ADVISE AN EGD PRIOR TO GT--------IF NO BLEEDING SEEN, A PEG COULD BE PLACED AT THAT TIME OTHERWISE, IF FAMILY WANTS TO DEFER A GI W/U THEN COULD PROCEED WITH IR PLACEMENT OF GT LONG FAMILY AWARE OF RISKS OF ENHANCED BLEEDING FROM UNKNOWN LESION SUCH AVM/ULCER/TUMOR FOR NOW, WOULD ADVCISE AVOIDANCE OF NSAIDS AND ADDING PPI IV Q 12 HOURS WILL DEFER TO FAMILY WISHES AT THIS TIME D/W DR RUIZ AND DR BARROSO (WHO WILL AWAITR FAMILY DECISION PRIOR TO PROCEEDING) THANKS, MD MEENAKSHI
--- NOTE | 2017-04-29 13:01 | CONS ---
DATE OF CONSULTATION: 04/29/2017 REQUESTING PHYSICIANS: Kenan Francis MD REASON FOR CONSULTATION: I was asked by Dr. Francis to evaluate the patient for occult positive stool. HISTORY OF PRESENT ILLNESS: The patient is an 82-year-old white female with underlying dementia. Cannot elicit any accurate history at the present time. We had seen her over 10 years ago. At that time, she underwent routine colonoscopy. Apparently the history is from the chart. She has a past medical history of hypothyroidism, long-time smoker, history of congestive heart failure, status post myocardial infarction with stent placement 2 years ago. She has a history of repeated falls and altered mental status over the past few months. When she came in, the son had reported that she had fallen 5 times in the past few months despite the use of a walker. She has hit her head a few times, but she did not lose consciousness. It is not reported that she was having any GI complaints. Apparently, she was living at home and has had troubles with activities of daily living. She was not on any blood thinners. She was losing weight and not eating well, and her medical doctor, Dr. Mitchell, had sent her to the hospital for admission for worsening in her underlying mental status. ALLERGIES: The patient is not allergic to any medication. MEDICATIONS: When she came in, she was on Ecotrin, Coreg, Lasix, Levaquin, Synthroid, and lisinopril. Other than that, she has a history of herniated discs. She is status post appendectomy and cholecystectomy, and she has hyperlipidemia, hypertension, diabetes, congestive heart failure, COPD, and atherosclerotic coronary artery disease. She has been in the hospital since April 01. She has had a prolonged course, and speaking with the medical doctor who has been following her, she has been treated for a urinary tract infection. She was on antibiotics. She had been on proton pump inhibition initially when she came in, but that was discontinued. The concern has been she has had a baseline anemia during the hospitalization, but over the past few days, her hemoglobin and hematocrit has dropped a little bit further, and therefore, we are called for evaluation. In speaking with the nurse who has followed her for a couple of days, the patient has not had any dark tarry stool, she has not had any complaints of abdominal pain, she has not had any significant nausea or vomiting. Apparently, she is not able to eat. It looks like she had a swallow evaluation with Aleena Tracy a couple of times. She was placed on a dysphagia puree nectar-thick liquid diet, but it seems that the patient was not getting adequate intake, and therefore a PEG was recommended. Apparently, Radiology was called for PEG placement, which is going to be today. Other than that, the patient during the hospitalization has remained on Tylenol, Zosyn, Clinimix, Synthroid, metoprolol, and multivitamin. VITAL SIGNS: Have been stable. She has not become hypotensive. PHYSICAL EXAMINATION: General: Currently, she is in absolutely no acute distress. She is not really communicative. She appears as an elderly chronically ill-appearing woman. HEENT: Sclerae anicteric. Her mouth is extremely dry. Her dentition is poor. Neck: Supple. Abdomen: Is symmetric, but there are multiple scars that are well healed. The abdomen is flat. Bowel sounds are heard. There is no tenderness to deep palpation. There are no masses, rebound or guarding. Rectal: Examination reveals the presence of stool that is light eugene and strongly occult blood positive. LABORATORY DATA: Notable in that she has a white count that is low at 2.9 and a platelet count of 138,000, her hemoglobin has been in the range of 8-9, and over the past few days, it has dropped down to 7.5, then it was back to 8.1, then to 7.7, and then it appears it dropped to 7.1 (that was yesterday). She received 2 units of packed cells, and her hemoglobin is back up to 12.3. Other than that, her INR has been okay at 1.2. Her chemistries are essentially unrevealing. Serum sodium 134, potassium 4, chloride 100, bicarbonate 21, BUN 23, creatinine 0.7. IMPRESSION: It is my impression that the patient is a very elderly 82-year-old woman who was living at home in the community with multiple falls. She has underlying dementia, numerous medical problems stemming from underlying hyperlipidemia, hypertension, atherosclerotic coronary artery disease status post stenting with history of congestive heart failure and diabetes, who came in with worsened mental status and has had a prolonged hospitalization. She is failing to thrive and not eating, and therefore, it has been advised that she go for a percutaneous endoscopic gastrostomy placement, and the interventional radiology team has been called. We are called because her hemoglobin, which had been low throughout the hospitalization, has dropped further to 7.1. On my rectal examination, she is strongly occult blood positive, but there is no evidence of any dark, tarry stool and melena. So, at this point, it is really in the familys hands as to how aggressive we should be. For now, I would certainly recommend avoiding anticoagulation and putting her on a proton pump inhibitor until we can talk to the family and decide whether they would like us to pursue a GI investigation. If her pulmonary status is stable, then, I think an upper endoscopy is not unreasonable, but it does carry risks of further bleeding, perforation, and risks from the sedation the anesthesia. So, if she is medically cleared, and the family is in favor of us looking to see if she has an ulcer or a bleeding lesion, then, we would proceed on April 30 with an upper endoscopy. For now, we would recommend continuing to keep her n.p.o. If the medical team wanted, we could place a PEG endoscopically at the time of an upper endoscopy, but it seems like that a non-endoscopic approach had been requested by the medical team. We will continue to be available to aid and manage this patient. ROSANA ARRIETA M.D. SERGIO/[id number]
[2017-04-29] MEDS: AMINO ACIDS 4.25%/D5W 1,000 ML IV SCH (13:57)
--- NOTE | 2017-04-29 14:39 | PN ---
Progress Note, Physician History of Present Illness: much more awake and alert no peg tube going to be worked up for gi - Current Medication List Current Medications: Active Medications Acetaminophen (Tylenol Suppository -) 650 mg [place] Q4H PRN PRN Reason: FEVER OR PAIN Last Admin: 04/28/17 14:54 Dose: 650 mg Piperacillin Sod/Tazobactam (Sod 3.375 gm/ Dextrose) 50 mls @ 100 mls/hr IVPB Q8H-IV [facility] PRN Reason: Protocol Last Admin: 04/29/17 10:25 Dose: 100 mls/hr Amino Acids (Clinimix -) 1,000 mls @ 60 mls/hr IV Q16H [facility] Last Admin: 04/29/17 13:57 Dose: Not Given Pantoprazole Sodium 80 mg/ (Sodium Chloride) 100 mls @ 10 mls/hr IVPB Q10H [facility] PRN Reason: 8 MG/HR Levothyroxine Sodium (Synthroid Injection -) 44 mcg IVPUSH DAILY@0700 [facility]END[facility] TO [facility] Last Admin: 04/29/17 06:28 Dose: 44 mcg Metoprolol Tartrate (Lopressor Injection -) 2.5 mg IVPB Q6H-IV [facility] Last Admin: 04/29/17 10:24 Dose: 2.5 mg Multivitamins/Minerals (Infuvite Adult -) 10 ml IV HS [facility] Last Admin: 04/28/17 21:39 Dose: 10 ml Potassium Phos/Sodium Phos (Phos-Nak Packet -) 1 packet NGT TID [facility] Last Admin: 04/29/17 06:28 Dose: 1 packet - Objective Vital Signs: Vital Signs Temperature 98.0 F 04/29/17 10:00 Pulse Rate 93 H 04/29/17 10:49 Respiratory Rate 18 04/29/17 10:00 Blood Pressure 145/93 04/29/17 10:24 O2 Sat by Pulse Oximetry (%) 100 04/29/17 10:49 Constitutional: Yes: No Distress, Calm Cardiovascular: Yes: Regular Rate and Rhythm Respiratory: Yes: Regular, CTA Bilaterally Gastrointestinal: Yes: Normal Bowel Sounds, Soft, Other (ng in place) Musculoskeletal: Yes: WNL Extremities: Yes: WNL Labs: CBC, BMP 04/29/17 06:05 04/29/17 06:05 INR, PTT INR 1.20 (0.82-1.09) H 04/27/17 06:45 Assessment/Plan Problem List - Problems (1) UTI (urinary tract infection) Code(s): N39.0 - URINARY TRACT INFECTION, SITE NOT SPECIFIED (2) Dementia Code(s): F03.90 - UNSPECIFIED DEMENTIA WITHOUT BEHAVIORAL DISTURBANCE (3) Pancytopenia Code(s): D61.818 - OTHER PANCYTOPENIA (4) CHF (congestive heart failure) Code(s): I50.9 - HEART FAILURE, UNSPECIFIED Qualifiers: Congestive heart failure type: unspecified congestive heart failure type Congestive heart failure chronicity: chronic Qualified Code(s): I50.9 - Heart failure, unspecified (5) HTN (hypertension) Code(s): I10 - ESSENTIAL (PRIMARY) HYPERTENSION (6) Hypothyroidism Code(s): E03.9 - HYPOTHYROIDISM, UNSPECIFIED Aspiration pneumonia Code(s): J69.0 - PNEUMONITIS DUE TO INHALATION OF FOOD AND VOMIT plan will stop all abx continue current mgmt await for work up and peg tube
--- NOTE | 2017-04-29 14:57 | PN ---
Progress Note, Physician Chief Complaint: Unable to obtain secondary to mental status - Current Medication List Current Medications: Active Medications Acetaminophen (Tylenol Suppository -) 650 mg [place] Q4H PRN PRN Reason: FEVER OR PAIN Last Admin: 04/28/17 14:54 Dose: 650 mg Amino Acids (Clinimix -) 1,000 mls @ 60 mls/hr IV Q16H [facility] Last Admin: 04/29/17 13:57 Dose: Not Given Pantoprazole Sodium 80 mg/ (Sodium Chloride) 100 mls @ 10 mls/hr IVPB Q10H [facility] PRN Reason: 8 MG/HR Levothyroxine Sodium (Synthroid Injection -) 44 mcg IVPUSH DAILY@0700 [facility] Last Admin: 04/29/17 06:28 Dose: 44 mcg Metoprolol Tartrate (Lopressor Injection -) 2.5 mg IVPB Q6H-IV [facility] Last Admin: 04/29/17 10:24 Dose: 2.5 mg Multivitamins/Minerals (Infuvite Adult -) 10 ml IV HS [facility] Last Admin: 04/28/17 21:39 Dose: 10 ml Potassium Phos/Sodium Phos (Phos-Nak Packet -) 1 packet NGT TID [facility] Last Admin: 04/29/17 06:28 Dose: 1 packet - Objective Vital Signs: Vital Signs Temperature 36.9 C 04/29/17 14:41 Pulse Rate 88 04/29/17 14:41 Respiratory Rate 18 04/29/17 10:00 Blood Pressure 123/72 04/29/17 14:41 O2 Sat by Pulse Oximetry (%) 100 04/29/17 10:49 Constitutional: Yes: No Distress, Calm, Thin Cardiovascular: Yes: Regular Rate and Rhythm. No: Gallop, Murmur, Rub Respiratory: Yes: Regular, On Nasal O2, Rhonchi. No: CTA Bilaterally, Rales, Wheezes Gastrointestinal: Yes: Normal Bowel Sounds, Soft. No: Distention, Tenderness Extremities: Yes: WNL Edema: No Labs: CBC, BMP 04/29/17 06:05 04/29/17 06:05 INR, PTT INR 1.20 (0.82-1.09) H 04/27/17 06:45 Problem List - Problems (1) UTI (urinary tract infection) Code(s): N39.0 - URINARY TRACT INFECTION, SITE NOT SPECIFIED (2) Dementia Code(s): F03.90 - UNSPECIFIED DEMENTIA WITHOUT BEHAVIORAL DISTURBANCE (3) Pancytopenia Code(s): D61.818 - OTHER PANCYTOPENIA (4) CHF (congestive heart failure) Code(s): I50.9 - HEART FAILURE, UNSPECIFIED Qualifiers: Congestive heart failure type: unspecified congestive heart failure type Congestive heart failure chronicity: chronic Qualified Code(s): I50.9 - Heart failure, unspecified; I50.9 - Heart failure, unspecified; I50.9 - Heart failure, unspecified; I50.9 - Heart failure, unspecified (5) HTN (hypertension) Code(s): I10 - ESSENTIAL (PRIMARY) HYPERTENSION (6) Hypothyroidism Code(s): E03.9 - HYPOTHYROIDISM, UNSPECIFIED (7) Aspiration pneumonia Code(s): J69.0 - PNEUMONITIS DUE TO INHALATION OF FOOD AND VOMIT (8) Anemia Code(s): D64.9 - ANEMIA, UNSPECIFIED Qualifiers: Anemia type: other cause Other causes of anemia: acute posthemorrhagic Qualified Code(s): D62 - Acute posthemorrhagic anemia; D62 - Acute posthemorrhagic anemia Assessment/Plan (1) Aspiration pneumonia Assessment/Plan: -ID following -zosyn stopped today -monitor Code(s): N39.0 - URINARY TRACT INFECTION, SITE NOT SPECIFIED (2) Dementia Assessment/Plan: -patient appears at baseline -planning for PEG tube, holding aspirin Code(s): F03.90 - UNSPECIFIED DEMENTIA WITHOUT BEHAVIORAL DISTURBANCE (3) Pancytopenia Assessment/Plan: -monitor Code(s): D61.818 - OTHER PANCYTOPENIA (4) CHF (congestive heart failure) Assessment/Plan: -not in exacerbation Code(s): I50.9 - HEART FAILURE, UNSPECIFIED Qualifiers: Congestive heart failure type: unspecified congestive heart failure type Congestive heart failure chronicity: chronic Qualified Code(s): I50.9 - Heart failure, unspecified (5) HTN (hypertension) Assessment/Plan: -continue IV metoprolol Code(s): I10 - ESSENTIAL (PRIMARY) HYPERTENSION (6) Hypothyroidism Assessment/Plan: -continue IV synthroid Code(s): E03.9 - HYPOTHYROIDISM, UNSPECIFIED (7) FEN -continue current rate of clinimix -replace phosphorus (8) Anemia -appears to be GI bleed -GI consulted -start on protonix gtt -GI will d/w son possible EGD -if agrees, will place PEG tube after EGD
[2017-04-29] MEDS ORDERED: PT OWN MED DRAWER 7, Y5N ONE (15:04)
[2017-04-29] MEDS: PANTOPRAZOLE SODIUM 80 MG in SODIUM CHLORIDE 100 ML IVPB SCH ×2 (16:10→21:22)
--- NOTE | 2017-04-29 17:16 | PN ---
Progress Note (short form) - Note Progress Note: GI ADDENDEUM: HAD PLACED CALL TO PATIENT SON YENNI SORENSEN AT 1PM TO DISCUSS POSSIBLE W/U OF OCCULT + STOOL AND TO QUESTION FAMILY WISHES REGARDING EGD/ +/- PE(ENDOSCOPIC)G VS PERC. GASTROSTOMY TUBE. HE DID NOT ANSWER, SO LEFT MESSAGE FOR HIM TO CALL OFFICE, BUT WE HAVE NOT HEARD BACK FROM HIM TO FAMILY WISHES FOR NOW, WOULD KEEP NPO ON PPI MEDICATION IF SON WISHES FOR W/U, THEN DR BOYD TO PERFORM EGD +/- PEG 04/30 OTHERWISE, IR CAN PROCEED DR BOYD AVAIL TILL 05/03 MD MEENAKSHI
[2017-04-29] MEDS: NYSTATIN 100,000 UNIT/GM TOPICAL CREAM 15 GM TUBE TP SCH (21:55)
[2017-04-29] MEDS: MULTIVIT INJ. ADULT COMBO WITH VIT K 1 COMBO 10 ML VIAL IV SCH (21:56)
[2017-04-30] MEDS: METOPROLOL TARTRATE 5 MG/5 ML VIAL IVPB SCH ×4 (02:47→22:43)
[2017-04-30] MEDS: PANTOPRAZOLE SODIUM 80 MG in SODIUM CHLORIDE 100 ML IVPB SCH ×4 (03:00→22:55)
[2017-04-30] MEDS: AMINO ACIDS 4.25%/D5W 1,000 ML IV SCH ×2 (05:45→22:43)
[2017-04-30] MEDS: NAPH,MB-DB/K PH,MBDB POWDER PACKET NGT SCH ×3 (05:45→22:44)
[2017-04-30] MEDS: LEVOTHYROXINE SODIUM 100 MCG VIAL IVPUSH SCH (06:01)
[2017-04-30 07:30] LABS: BASOPHIL 0.5 % (0-2.0); EOSINOPHIL 5.7 % (0-4.5); MCH 32.4 pg (25.7-33.7); MCHC 35.6 g/dl (32.0-36.0); MEAN CELL VOLUME 91.2 fl (80-96); MEAN PLT VOLUME 7.2 fl (7.5-11.1); NEUTROPHILS 44.5 % (42.8-82.8); PLATELET COUNT 118 K/MM3 (134-434); RDW 20.5 % (11.6-15.6); WHITE BLOOD COUNT 2.6 K/mm3 (4.0-10.0)
[2017-04-30 07:56] LABS: ANION GAP 13 (8-16); CALCIUM 8.5 mg/dL (8.5-10.1); CO2 22 mmol/L (21-32); CREATININE 0.7 mg/dL (0.55-1.02); GLUCOSE,RANDOM 119 mg/dL (74-106); MAGNESIUM 1.6 mg/dL (1.8-2.4); PHOSPHOROUS 2.5 mg/dL (2.5-4.9)
[2017-04-30] MEDS ORDERED: POTASSIUM CHLORIDE ORAL LIQUID 20 MEQ/15 ML NGT ONE (10:00)
[2017-04-30] MEDS ORDERED: MAGNESIUM SULF 50% (8.12 MEQ/2 ML-1 GM VIAL) IVPB ONE (10:00)
[2017-04-30] MEDS: KCL 10 MEQ IVPB 100 ML IVPB SCH ×3 (10:59→14:13)
[2017-04-30] MEDS: NYSTATIN 100,000 UNIT/GM TOPICAL CREAM 15 GM TUBE TP SCH ×2 (11:00→22:43)
--- NOTE | 2017-04-30 11:01 | PN ---
Progress Note, Physician Chief Complaint: Unable to obtain secondary to mental status - Current Medication List Current Medications: Active Medications Acetaminophen (Tylenol Suppository -) 650 mg [place] Q4H PRN PRN Reason: FEVER OR PAIN Last Admin: 04/28/17 14:54 Dose: 650 mg Amino Acids (Clinimix -) 1,000 mls @ 60 mls/hr IV Q16H [facility] Last Admin: 04/30/17 05:45 Dose: Not Given Pantoprazole Sodium 80 mg/ (Sodium Chloride) 100 mls @ 10 mls/hr IVPB Q10H [facility] PRN Reason: 8 MG/HR Last Admin: 04/30/17 09:18 Dose: Not Given Potassium Chloride (Potassium Chloride 10 Meq Premix Ivpb -) 100 mls @ 100 mls/ hr IVPB Q60M [facility] Stop: 04/30/17 12:59 Last Admin: 04/30/17 10:59 Dose: 100 mls/hr Levothyroxine Sodium (Synthroid Injection -) 44 mcg IVPUSH DAILY@0700 [facility] Last Admin: 04/30/17 06:01 Dose: 44 mcg Metoprolol Tartrate (Lopressor Injection -) 2.5 mg IVPB Q6H-IV [facility] Last Admin: 04/30/17 10:59 Dose: 2.5 mg Multivitamins/Minerals (Infuvite Adult -) 10 ml IV HS [facility] Last Admin: 04/29/17 21:56 Dose: Not Given Nystatin (Mycostatin Cream -) 1 applic TP BID [facility] Last Admin: 04/30/17 11:00 Dose: 1 applic Potassium Phos/Sodium Phos (Phos-Nak Packet -) 1 packet NGT TID [facility] Last Admin: 04/30/17 05:45 Dose: Not Given - Objective Vital Signs: Vital Signs Temperature 36.9 C 04/30/17 06:00 Pulse Rate 89 04/30/17 10:59 Respiratory Rate 18 04/30/17 06:00 Blood Pressure 151/81 04/30/17 10:59 O2 Sat by Pulse Oximetry (%) 96 04/29/17 21:00 Constitutional: Yes: Well Nourished, No Distress, Calm Cardiovascular: Yes: Regular Rate and Rhythm. No: Gallop, Murmur, Rub Respiratory: Yes: Regular, CTA Bilaterally. No: Rales, Rhonchi, Wheezes Gastrointestinal: Yes: Normal Bowel Sounds, Soft. No: Distention, Tenderness Extremities: Yes: WNL Edema: No Labs: CBC, BMP 04/30/17 06:20 04/30/17 06:20 INR, PTT INR 1.20 (0.82-1.09) H 04/27/17 06:45 Problem List - Problems (1) UTI (urinary tract infection) Code(s): N39.0 - URINARY TRACT INFECTION, SITE NOT SPECIFIED (2) Dementia Code(s): F03.90 - UNSPECIFIED DEMENTIA WITHOUT BEHAVIORAL DISTURBANCE (3) Pancytopenia Code(s): D61.818 - OTHER PANCYTOPENIA (4) CHF (congestive heart failure) Code(s): I50.9 - HEART FAILURE, UNSPECIFIED Qualifiers: Congestive heart failure type: unspecified congestive heart failure type Congestive heart failure chronicity: chronic Qualified Code(s): I50.9 - Heart failure, unspecified; I50.9 - Heart failure, unspecified; I50.9 - Heart failure, unspecified; I50.9 - Heart failure, unspecified (5) HTN (hypertension) Code(s): I10 - ESSENTIAL (PRIMARY) HYPERTENSION (6) Hypothyroidism Code(s): E03.9 - HYPOTHYROIDISM, UNSPECIFIED (7) Aspiration pneumonia Code(s): J69.0 - PNEUMONITIS DUE TO INHALATION OF FOOD AND VOMIT (8) Anemia Code(s): D64.9 - ANEMIA, UNSPECIFIED Qualifiers: Anemia type: other cause Other causes of anemia: acute posthemorrhagic Qualified Code(s): D62 - Acute posthemorrhagic anemia; D62 - Acute posthemorrhagic anemia Assessment/Plan (1) Aspiration pneumonia Assessment/Plan: -ID following -s/p full course zosyn Code(s): N39.0 - URINARY TRACT INFECTION, SITE NOT SPECIFIED (2) Dementia Assessment/Plan: -patient appears at baseline -planning for PEG tube, holding aspirin Code(s): F03.90 - UNSPECIFIED DEMENTIA WITHOUT BEHAVIORAL DISTURBANCE (3) Pancytopenia Assessment/Plan: -monitor Code(s): D61.818 - OTHER PANCYTOPENIA (4) CHF (congestive heart failure) Assessment/Plan: -not in exacerbation Code(s): I50.9 - HEART FAILURE, UNSPECIFIED Qualifiers: Congestive heart failure type: unspecified congestive heart failure type Congestive heart failure chronicity: chronic Qualified Code(s): I50.9 - Heart failure, unspecified (5) HTN (hypertension) Assessment/Plan: -continue IV metoprolol Code(s): I10 - ESSENTIAL (PRIMARY) HYPERTENSION (6) Hypothyroidism Assessment/Plan: -continue IV synthroid Code(s): E03.9 - HYPOTHYROIDISM, UNSPECIFIED (7) FEN -continue current rate of clinimix -replace mg and potassium (8) Anemia -planning for EGD and PEG tube Dispo -plan for discharge to SNF 24 hours after PEG tube replacement
--- NOTE | 2017-04-30 11:09 | PN ---
Progress Note (short form) - Note Progress Note: NEUROLOGY fOLLOW-UP: Events reviewed, Pt. examined. Please see my consult (04/03/17) for admission assessment of this 82 yo woman with progressive cognitive decline. Serial CT scans of head (04/01; 04/07; 04/18; and 04/28) as well as MRI of brain (05/11) all show prominent atrophy, moderate-marked hydrocephalus (ex vacuo) and diffuse posterior fossa and both hemispheres. Patient has remained poorly responsive and unable to maintain oral hydration and nutrition. Still with IV. Was for PEG yesterday and had GI consult. RN suspected new facial asymmetry and CT was repeated-without change. AL: Neck rigid in all directions. Neuro: Awake, alert. Follows simple commands. Gibberish speech. Full guzman to threat Moves all 4's with rigid tone. Plantars are silent. Withdraws all 4's to pinch. IMP: Severe, B/L cerebral dysfunction Etiology probably multifactorial due to degenerative dementia (AD), Multiinfarct state and hydrocephalus. 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 Suggest: No sign of acute CVA OK to proceed with PEG. Thank you very much, Hugo Adams MD
--- NOTE | 2017-04-30 12:04 | EKG ---
Test Reason : Blood Pressure : / mmHG Vent. Rate : 078 BPM Atrial Rate : 078 BPM P-R Int : 144 ms QRS Dur : 078 ms QT Int : 372 ms P-R-T Axes : 055 034 048 degrees QTc Int : 424 ms NORMAL SINUS RHYTHM Confirmed by MEENAKSHI MYERS MD ([id number]) on 04/30/2017 12:04:33 PM Referred By: Confirmed By:MEENAKSHI MYERS MD
--- NOTE | 2017-04-30 15:49 | PN ---
Progress Note, Physician History of Present Illness: patient continues to await endoscopy patient low potassium being replaced - Current Medication List Current Medications: Active Medications Acetaminophen (Tylenol Suppository -) 650 mg [place] Q4H PRN PRN Reason: FEVER OR PAIN Last Admin: 04/28/17 14:54 Dose: 650 mg Amino Acids (Clinimix -) 1,000 mls @ 60 mls/hr IV Q16H [facility] Last Admin: 04/30/17 05:45 Dose: Not Given Pantoprazole Sodium 80 mg/ (Sodium Chloride) 100 mls @ 10 mls/hr IVPB Q10H [facility]OC[facility]NE PRN Reason: 8 MG/HR Last Admin: 04/30/17 09:18 Dose: Not Given Levothyroxine Sodium (Synthroid Injection -) 44 mcg IVPUSH DAILY@0700 [facility] Last Admin: 04/30/17 06:01 Dose: 44 mcg Metoprolol Tartrate (Lopressor Injection -) 2.5 mg IVPB Q6H-IV [facility] Last Admin: 04/30/17 14:41 Dose: 2.5 mg Multivitamins/Minerals (Infuvite Adult -) 10 ml IV HS [facility] Last Admin: 04/29/17 21:56 Dose: Not Given Nystatin (Mycostatin Cream -) 1 applic TP BID [facility] Last Admin: 04/30/17 11:00 Dose: 1 applic Potassium Phos/Sodium Phos (Phos-Nak Packet -) 1 packet NGT TID [facility] Last Admin: 04/30/17 14:13 Dose: 1 packet - Objective Vital Signs: Vital Signs Temperature 98.7 F 04/30/17 14:33 Pulse Rate 92 H 04/30/17 14:41 Respiratory Rate 18 04/30/17 12:00 Blood Pressure 150/76 04/30/17 14:41 O2 Sat by Pulse Oximetry (%) 96 04/29/17 21:00 Constitutional: Yes: No Distress, Calm Cardiovascular: Yes: Regular Rate and Rhythm Respiratory: Yes: Regular, CTA Bilaterally Gastrointestinal: Yes: Normal Bowel Sounds, Soft Musculoskeletal: Yes: WNL Extremities: Yes: WNL Neurological: Yes: Alert, Other Psychiatric: Yes: Other Labs: CBC, BMP 04/30/17 06:20 04/30/17 06:20 INR, PTT INR 1.20 (0.82-1.09) H 04/27/17 06:45 Assessment/Plan Problem List - Problems (1) UTI (urinary tract infection) Code(s): N39.0 - URINARY TRACT INFECTION, SITE NOT SPECIFIED (2) Dementia Code(s): F03.90 - UNSPECIFIED DEMENTIA WITHOUT BEHAVIORAL DISTURBANCE (3) Pancytopenia Code(s): D61.818 - OTHER PANCYTOPENIA (4) CHF (congestive heart failure) Code(s): I50.9 - HEART FAILURE, UNSPECIFIED Qualifiers: Congestive heart failure type: unspecified congestive heart failure type Congestive heart failure chronicity: chronic Qualified Code(s): I50.9 - Heart failure, unspecified (5) HTN (hypertension) Code(s): I10 - ESSENTIAL (PRIMARY) HYPERTENSION (6) Hypothyroidism Code(s): E03.9 - HYPOTHYROIDISM, UNSPECIFIED Aspiration pneumonia Code(s): J69.0 - PNEUMONITIS DUE TO INHALATION OF FOOD AND VOMIT plan continue current mgmt nutrition support
[2017-04-30] MEDS: MULTIVIT INJ. ADULT COMBO WITH VIT K 1 COMBO 10 ML VIAL IV SCH (22:43)
[2017-05-01] MEDS: METOPROLOL TARTRATE 5 MG/5 ML VIAL IVPB SCH ×4 (02:00→22:27)
[2017-05-01] MEDS: PANTOPRAZOLE SODIUM 80 MG in SODIUM CHLORIDE 100 ML IVPB SCH ×4 (04:35→22:33)
[2017-05-01] MEDS: NAPH,MB-DB/K PH,MBDB POWDER PACKET NGT SCH ×3 (05:57→22:28)
[2017-05-01] MEDS: LEVOTHYROXINE SODIUM 100 MCG VIAL IVPUSH SCH (06:00)
[2017-05-01 07:34] LABS: BASOPHIL 0.9 % (0-2.0); EOSINOPHIL 4.6 % (0-4.5); MCHC 35.7 g/dl (32.0-36.0); MEAN CELL VOLUME 92.4 fl (80-96); MEAN PLT VOLUME 7.3 fl (7.5-11.1); NEUTROPHILS 47.6 % (42.8-82.8); PLATELET COUNT 126 K/MM3 (134-434); RDW 20.4 % (11.6-15.6); WHITE BLOOD COUNT 2.6 K/mm3 (4.0-10.0)
[2017-05-01 08:04] LABS: ANION GAP 11 (8-16); CALCIUM 8.4 mg/dL (8.5-10.1); CO2 22 mmol/L (21-32); GLUCOSE,RANDOM 110 mg/dL (74-106); MAGNESIUM 2.2 mg/dL (1.8-2.4)
[2017-05-01 08:07] LABS: CREATININE 0.6 mg/dL (0.55-1.02); PHOSPHOROUS 2.9 mg/dL (2.5-4.9)
[2017-05-01] MEDS: NYSTATIN 100,000 UNIT/GM TOPICAL CREAM 15 GM TUBE TP SCH ×2 (10:01→22:28)
--- NOTE | 2017-05-01 10:38 | PN ---
Progress Note (short form) - Note Progress Note: Case discussed with Dr Mitchell, attending. Pt's problem appears to be that she refuses food, not that she is unable to swallow. She is able to articulate and says she is not hungry. Potassium up to 3.4 today. Abdomen: no obvious masses. There appears to be marked tracheal deviation in the neck. I spoke with her son, Abhinav Aguilar, yesterday, and explained the benefits and limits of G tube feeding. Specifically I informed him that G tube feeding for dementia is not a cure-all; roughly 25-30% of persons with a new G tube within 30 days, and 60% within a year. If patient is medically stable and family wishes we can arrange EGD and PEG placement early next week. - Graham Szymanski MD
[2017-05-01] MEDS: AMINO ACIDS 4.25%/D5W 1,000 ML IV SCH (13:45)
--- NOTE | 2017-05-01 13:52 | PN ---
Progress Note, Physician History of Present Illness: stable much more awake and alert - Current Medication List Current Medications: Active Medications Acetaminophen (Tylenol Suppository -) 650 mg [place] Q4H PRN PRN Reason: FEVER OR PAIN Last Admin: 04/28/17 14:54 Dose: 650 mg Amino Acids (Clinimix -) 1,000 mls @ 60 mls/hr IV Q16H [facility] Last Admin: 05/01/17 13:45 Dose: 60 mls/hr Pantoprazole Sodium 80 mg/ (Sodium Chloride) 100 mls @ 10 mls/hr IVPB Q10H [facility] PRN Reason: 8 MG/HR Last Admin: 05/01/17 13:45 Dose: Not Given Levothyroxine Sodium (Synthroid Injection -) 44 mcg IVPUSH DAILY@0700 [facility] Last Admin: 05/01/17 06:00 Dose: 44 mcg Metoprolol Tartrate (Lopressor Injection -) 2.5 mg IVPB Q6H-IV [facility] Last Admin: 05/01/17 08:59 Dose: 2.5 mg Multivitamins/Minerals (Infuvite Adult -) 10 ml IV HS [facility] Last Admin: 04/30/17 22:43 Dose: 10 ml Nystatin (Mycostatin Cream -) 1 applic TP BID [facility] Last Admin: 05/01/17 10:01 Dose: 1 applic Potassium Phos/Sodium Phos (Phos-Nak Packet -) 1 packet NGT TID [facility] Last Admin: 05/01/17 05:57 Dose: 1 packet - Objective Vital Signs: Vital Signs Temperature 98.1 F 05/01/17 08:37 Pulse Rate 85 05/01/17 08:59 Respiratory Rate 18 05/01/17 08:37 Blood Pressure 130/74 05/01/17 08:59 O2 Sat by Pulse Oximetry (%) 100 05/01/17 09:00 Constitutional: Yes: No Distress, Calm Cardiovascular: Yes: Regular Rate and Rhythm Respiratory: Yes: Regular, CTA Bilaterally Gastrointestinal: Yes: Normal Bowel Sounds, Soft Musculoskeletal: Yes: WNL Extremities: Yes: WNL Neurological: Yes: Alert, Other Psychiatric: Yes: Alert Labs: CBC, BMP 05/01/17 06:00 05/01/17 06:00 INR, PTT INR 1.20 (0.82-1.09) H 10/03/17 06:45 Assessment/Plan Problem List - Problems (1) UTI (urinary tract infection) Code(s): N39.0 - URINARY TRACT INFECTION, SITE NOT SPECIFIED (2) Dementia Code(s): F03.90 - UNSPECIFIED DEMENTIA WITHOUT BEHAVIORAL DISTURBANCE (3) Pancytopenia Code(s): D61.818 - OTHER PANCYTOPENIA (4) CHF (congestive heart failure) Code(s): I50.9 - HEART FAILURE, UNSPECIFIED Qualifiers: Congestive heart failure type: unspecified congestive heart failure type Congestive heart failure chronicity: chronic Qualified Code(s): I50.9 - Heart failure, unspecified (5) HTN (hypertension) Code(s): I10 - ESSENTIAL (PRIMARY) HYPERTENSION (6) Hypothyroidism Code(s): E03.9 - HYPOTHYROIDISM, UNSPECIFIED Aspiration pneumonia Code(s): J69.0 - PNEUMONITIS DUE TO INHALATION OF FOOD AND VOMIT plan continue current mgmt nutrition support await for gi plan for peg tube rest as per primary
[2017-05-01] MEDS ORDERED: POTASSIUM CHLORIDE TABS 20 MEQ TABLET.ER (FP) PO ONE (14:22)
--- NOTE | 2017-05-01 14:33 | PN ---
Progress Note (short form) - Note Progress Note: Unable to obtain secondary to mental status - Current Medication List Current Medications: Active Medications Acetaminophen (Tylenol Suppository -) 650 mg [place] Q4H PRN PRN Reason: FEVER OR PAIN Last Admin: 04/28/17 14:54 Dose: 650 mg Amino Acids (Clinimix -) 1,000 mls @ 60 mls/hr IV Q16H [facility] Last Admin: 04/30/17 05:45 Dose: Not Given Pantoprazole Sodium 80 mg/ (Sodium Chloride) 100 mls @ 10 mls/hr IVPB Q10H [facility]OC[facility]NE PRN Reason: 8 MG/HR Last Admin: 04/30/17 09:18 Dose: Not Given Potassium Chloride (Potassium Chloride 10 Meq Premix Ivpb -) 100 mls @ 100 mls/ hr IVPB Q60M [facility] Stop: 04/30/17 12:59 Last Admin: 04/30/17 10:59 Dose: 100 mls/hr Levothyroxine Sodium (Synthroid Injection -) 44 mcg IVPUSH DAILY@0700 [facility] Last Admin: 04/30/17 06:01 Dose: 44 mcg Metoprolol Tartrate (Lopressor Injection -) 2.5 mg IVPB Q6H-IV [facility] Last Admin: 04/30/17 10:59 Dose: 2.5 mg Multivitamins/Minerals (Infuvite Adult -) 10 ml IV HS [facility] Last Admin: 04/29/17 21:56 Dose: Not Given Nystatin (Mycostatin Cream -) 1 applic TP BID [facility] Last Admin: 04/30/17 11:00 Dose: 1 applic Potassium Phos/Sodium Phos (Phos-Nak Packet -) 1 packet NGT TID [facility] Last Admin: 04/30/17 05:45 Dose: Not Given - Objective Vital Signs: Vital Signs Period Temp Pulse Resp BP Sys/Damon Pulse Ox Last 24 Hr 97.6 F-98.7 F 84-96 18-18 130-165/66-81 100-100 Constitutional: Yes: Well Nourished, No Distress, Calm Cardiovascular: Yes: Regular Rate and Rhythm. No: Gallop, Murmur, Rub Respiratory: Yes: Regular, CTA Bilaterally. No: Rales, Rhonchi, Wheezes Gastrointestinal: Yes: Normal Bowel Sounds, Soft. No: Distention, Tenderness Extremities: Yes: WNL Edema: No Labs: CBC, BMP 05/01/17 06:00 05/01/17 06:00 Problem List - Problems (1) UTI (urinary tract infection) Code(s): N39.0 - URINARY TRACT INFECTION, SITE NOT SPECIFIED (2) Dementia Code(s): F03.90 - UNSPECIFIED DEMENTIA WITHOUT BEHAVIORAL DISTURBANCE (3) Pancytopenia Code(s): D61.818 - OTHER PANCYTOPENIA (4) CHF (congestive heart failure) Code(s): I50.9 - HEART FAILURE, UNSPECIFIED Qualifiers: Congestive heart failure type: unspecified congestive heart failure type Congestive heart failure chronicity: chronic Qualified Code(s): I50.9 - Heart failure, unspecified; I50.9 - Heart failure, unspecified; I50.9 - Heart failure, unspecified; I50.9 - Heart failure, unspecified (5) HTN (hypertension) Code(s): I10 - ESSENTIAL (PRIMARY) HYPERTENSION (6) Hypothyroidism Code(s): E03.9 - HYPOTHYROIDISM, UNSPECIFIED (7) Aspiration pneumonia Code(s): J69.0 - PNEUMONITIS DUE TO INHALATION OF FOOD AND VOMIT (8) Anemia Code(s): D64.9 - ANEMIA, UNSPECIFIED Qualifiers: Anemia type: other cause Other causes of anemia: acute posthemorrhagic Qualified Code(s): D62 - Acute posthemorrhagic anemia; D62 - Acute posthemorrhagic anemia Assessment/Plan (1) Aspiration pneumonia Assessment/Plan: -ID following -s/p full course zosyn Code(s): N39.0 - URINARY TRACT INFECTION, SITE NOT SPECIFIED (2) Dementia Assessment/Plan: -patient appears at baseline -planning for PEG tube, holding aspirin Code(s): F03.90 - UNSPECIFIED DEMENTIA WITHOUT BEHAVIORAL DISTURBANCE (3) Pancytopenia Assessment/Plan: -monitor Code(s): D61.818 - OTHER PANCYTOPENIA (4) CHF (congestive heart failure) Assessment/Plan: -not in exacerbation Code(s): I50.9 - HEART FAILURE, UNSPECIFIED Qualifiers: Congestive heart failure type: unspecified congestive heart failure type Congestive heart failure chronicity: chronic Qualified Code(s): I50.9 - Heart failure, unspecified (5) HTN (hypertension) Assessment/Plan: -continue IV metoprolol Code(s): I10 - ESSENTIAL (PRIMARY) HYPERTENSION (6) Hypothyroidism Assessment/Plan: -continue IV synthroid Code(s): E03.9 - HYPOTHYROIDISM, UNSPECIFIED (7) FEN -continue current rate of clinimix -replace mg and potassium (8) Anemia -planning for EGD and PEG tube Case discussed with Dr. Szymanski. Will talk to son whether he still wants peg for her mother. Swelling left side of the neck. Most likely deviated trachea to the left. Will check with x ray.
[2017-05-01] MEDS ORDERED: POTASSIUM CHLORIDE ORAL LIQUID 20 MEQ/15 ML PO ONE (15:30)
[2017-05-01] MEDS: MULTIVIT INJ. ADULT COMBO WITH VIT K 1 COMBO 10 ML VIAL IV SCH (22:24)
[2017-05-02] MEDS: METOPROLOL TARTRATE 5 MG/5 ML VIAL IVPB SCH ×4 (02:01→20:53)
[2017-05-02] MEDS: AMINO ACIDS 4.25%/D5W 1,000 ML IV SCH ×2 (04:31→20:44)
[2017-05-02] MEDS: LEVOTHYROXINE SODIUM 100 MCG VIAL IVPUSH SCH (06:10)
[2017-05-02] MEDS: NAPH,MB-DB/K PH,MBDB POWDER PACKET NGT SCH ×3 (06:14→21:04)
[2017-05-02] MEDS: PANTOPRAZOLE SODIUM 80 MG in SODIUM CHLORIDE 100 ML IVPB SCH ×2 (08:58→20:44)
--- NOTE | 2017-05-02 09:38 | PN ---
Progress Note (short form) - Note Progress Note: Pt examined at bedside. She is somnolent, arousable. NG tube in place, no abdominal tenderness noted. Xray of neck -> midline trachea. Will begin tube feedings via NG tube. Case d/w Dr Mitchell, to obtain evaluation of pancytopenia. Urine was negative for protein. Can obtain SPEP, IEP pending heme evaluation. Would hold off on PEG pending heme evaluation.
[2017-05-02] MEDS: NYSTATIN 100,000 UNIT/GM TOPICAL CREAM 15 GM TUBE TP SCH ×2 (10:04→21:03)
--- NOTE | 2017-05-02 14:06 | PN ---
Progress Note, Physician History of Present Illness: ng tube feeding started on the patient patient has moist congested cough mentally awake - Current Medication List Current Medications: Active Medications Acetaminophen (Tylenol Suppository -) 650 mg [place] Q4H PRN PRN Reason: FEVER OR PAIN Last Admin: 04/28/17 14:54 Dose: 650 mg Amino Acids (Clinimix -) 1,000 mls @ 60 mls/hr IV Q16H [facility] Last Admin: 05/02/17 04:31 Dose: 60 mls/hr Pantoprazole Sodium 80 mg/ (Sodium Chloride) 100 mls @ 10 mls/hr IVPB Q10H JOCELYNE PRN Reason: 8 MG/HR Last Admin: 05/02/17 08:58 Dose: 10 mls/hr Levothyroxine Sodium (Synthroid Injection -) 44 mcg IVPUSH DAILY@0700 [facility] Last Admin: 05/02/17 06:10 Dose: 44 mcg Metoprolol Tartrate (Lopressor Injection -) 2.5 mg IVPB Q6H-IV [facility] Last Admin: 05/02/17 08:57 Dose: 2.5 mg Multivitamins/Minerals (Infuvite Adult -) 10 ml IV HS [facility] Last Admin: 05/01/17 22:24 Dose: 10 ml Nystatin (Mycostatin Cream -) 1 applic TP BID [facility] Last Admin: 05/02/17 10:04 Dose: 1 applic Potassium Phos/Sodium Phos (Phos-Nak Packet -) 1 packet NGT TID [facility] Last Admin: 05/02/17 06:14 Dose: 1 packet - Objective Vital Signs: Vital Signs Temperature 98.0 F 05/02/17 09:06 Pulse Rate 103 H 05/02/17 10:33 Respiratory Rate 20 05/02/17 09:06 Blood Pressure 150/80 05/02/17 09:06 O2 Sat by Pulse Oximetry (%) 97 05/02/17 10:33 Constitutional: Yes: No Distress, Calm Cardiovascular: Yes: Regular Rate and Rhythm Respiratory: Yes: Rhonchi, Other (cough) Gastrointestinal: Yes: Normal Bowel Sounds, Soft, Other (ng tube in place) Musculoskeletal: Yes: WNL Extremities: Yes: WNL Neurological: Yes: Alert, Other Psychiatric: Yes: Alert, Other Labs: CBC, BMP 05/01/17 06:00 05/01/17 06:00 INR, PTT INR 1.20 (0.82-1.09) H 04/27/17 06:45 Assessment/Plan Problem List - Problems (1) UTI (urinary tract infection) Code(s): N39.0 - URINARY TRACT INFECTION, SITE NOT SPECIFIED (2) Dementia Code(s): F03.90 - UNSPECIFIED DEMENTIA WITHOUT BEHAVIORAL DISTURBANCE (3) Pancytopenia Code(s): D61.818 - OTHER PANCYTOPENIA (4) CHF (congestive heart failure) Code(s): I50.9 - HEART FAILURE, UNSPECIFIED Qualifiers: Congestive heart failure type: unspecified congestive heart failure type Congestive heart failure chronicity: chronic Qualified Code(s): I50.9 - Heart failure, unspecified (5) HTN (hypertension) Code(s): I10 - ESSENTIAL (PRIMARY) HYPERTENSION (6) Hypothyroidism Code(s): E03.9 - HYPOTHYROIDISM, UNSPECIFIED Aspiration pneumonia Code(s): J69.0 - PNEUMONITIS DUE TO INHALATION OF FOOD AND VOMIT plan continue current mgmt nutrition support will order a portable xray chest aspiration precautions
--- NOTE | 2017-05-02 17:28 | PN ---
Progress Note (short form) - Note Progress Note: No acute event overnight. - Current Medication List Current Medications: Active Medications Acetaminophen (Tylenol Suppository -) 650 mg [place] Q4H PRN PRN Reason: FEVER OR PAIN Last Admin: 04/28/17 14:54 Dose: 650 mg Amino Acids (Clinimix -) 1,000 mls @ 60 mls/hr IV Q16H [facility] Last Admin: 04/30/17 05:45 Dose: Not Given Pantoprazole Sodium 80 mg/ (Sodium Chloride) 100 mls @ 10 mls/hr IVPB Q10H [facility]NE PRN Reason: 8 MG/HR Last Admin: 04/30/17 09:18 Dose: Not Given Potassium Chloride (Potassium Chloride 10 Meq Premix Ivpb -) 100 mls @ 100 mls/ hr IVPB Q60M [facility] Stop: 04/30/17 12:59 Last Admin: 04/30/17 10:59 Dose: 100 mls/hr Levothyroxine Sodium (Synthroid Injection -) 44 mcg IVPUSH DAILY@0700 [facility] Last Admin: 04/30/17 06:01 Dose: 44 mcg Metoprolol Tartrate (Lopressor Injection -) 2.5 mg IVPB Q6H-IV [facility] Last Admin: 04/30/17 10:59 Dose: 2.5 mg Multivitamins/Minerals (Infuvite Adult -) 10 ml IV HS [facility] Last Admin: 04/29/17 21:56 Dose: Not Given Nystatin (Mycostatin Cream -) 1 applic TP BID [facility] Last Admin: 04/30/17 11:00 Dose: 1 applic Potassium Phos/Sodium Phos (Phos-Nak Packet -) 1 packet NGT TID [facility] Last Admin: 04/30/17 05:45 Dose: Not Given - Objective Vital Signs: Vital Signs Period Temp Pulse Resp BP Sys/Damon Pulse Ox Last 24 Hr 97.8 F-99.1 F 87-103 18-20 136-152/52-81 97-100 Constitutional: Yes: Well Nourished, No Distress, Calm Cardiovascular: Yes: Regular Rate and Rhythm. No: Gallop, Murmur, Rub Respiratory: Yes: Regular, CTA Bilaterally. No: Rales, Rhonchi, Wheezes Gastrointestinal: Yes: Normal Bowel Sounds, Soft. No: Distention, Tenderness Extremities: Yes: WNL Edema: No Labs: CBC, BMP 05/01/17 06:00 05/01/17 06:00 Problem List - Problems (1) UTI (urinary tract infection) Code(s): N39.0 - URINARY TRACT INFECTION, SITE NOT SPECIFIED (2) Dementia Code(s): F03.90 - UNSPECIFIED DEMENTIA WITHOUT BEHAVIORAL DISTURBANCE (3) Pancytopenia Code(s): D61.818 - OTHER PANCYTOPENIA (4) CHF (congestive heart failure) Code(s): I50.9 - HEART FAILURE, UNSPECIFIED Qualifiers: Congestive heart failure type: unspecified congestive heart failure type Congestive heart failure chronicity: chronic Qualified Code(s): I50.9 - Heart failure, unspecified; I50.9 - Heart failure, unspecified; I50.9 - Heart failure, unspecified; I50.9 - Heart failure, unspecified (5) HTN (hypertension) Code(s): I10 - ESSENTIAL (PRIMARY) HYPERTENSION (6) Hypothyroidism Code(s): E03.9 - HYPOTHYROIDISM, UNSPECIFIED (7) Aspiration pneumonia Code(s): J69.0 - PNEUMONITIS DUE TO INHALATION OF FOOD AND VOMIT (8) Anemia Code(s): D64.9 - ANEMIA, UNSPECIFIED Qualifiers: Anemia type: other cause Other causes of anemia: acute posthemorrhagic Qualified Code(s): D62 - Acute posthemorrhagic anemia; D62 - Acute posthemorrhagic anemia Assessment/Plan (1) Aspiration pneumonia Assessment/Plan: -ID following -s/p full course zosyn Code(s): N39.0 - URINARY TRACT INFECTION, SITE NOT SPECIFIED (2) Dementia Assessment/Plan: -patient appears at baseline -planning for PEG tube, holding aspirin Code(s): F03.90 - UNSPECIFIED DEMENTIA WITHOUT BEHAVIORAL DISTURBANCE (3) Pancytopenia Assessment/Plan: Concerning. Will consult heme for opinion/work up. Code(s): D61.818 - OTHER PANCYTOPENIA (4) CHF (congestive heart failure) Assessment/Plan: -not in exacerbation Code(s): I50.9 - HEART FAILURE, UNSPECIFIED Qualifiers: Congestive heart failure type: unspecified congestive heart failure type Congestive heart failure chronicity: chronic Qualified Code(s): I50.9 - Heart failure, unspecified (5) HTN (hypertension) Assessment/Plan: -continue IV metoprolol Code(s): I10 - ESSENTIAL (PRIMARY) HYPERTENSION (6) Hypothyroidism Assessment/Plan: -continue IV synthroid Code(s): E03.9 - HYPOTHYROIDISM, UNSPECIFIED (7) FEN - Feeding through NG tube initiated by Dr. Szymanski. (8) Anemia -Heme eval. Discussed with son regarding PEG. Risk vs benefits discussed. He is undecided as of now. Awaiting his decision. Tube feedings initiated by Dr. Szymanski. Parish consulted for pancytopenia evaluation.
[2017-05-02] MEDS: MULTIVIT INJ. ADULT COMBO WITH VIT K 1 COMBO 10 ML VIAL IV SCH (21:02)
[2017-05-03] MEDS: METOPROLOL TARTRATE 5 MG/5 ML VIAL IVPB SCH ×4 (02:01→22:30)
[2017-05-03] MEDS: NAPH,MB-DB/K PH,MBDB POWDER PACKET NGT SCH ×3 (05:53→22:31)
[2017-05-03] MEDS: LEVOTHYROXINE SODIUM 100 MCG VIAL IVPUSH SCH (06:03)
[2017-05-03] MEDS: PANTOPRAZOLE SODIUM 80 MG in SODIUM CHLORIDE 100 ML IVPB SCH ×2 (06:06→16:37)
[2017-05-03 08:05] LABS: BASOPHIL 0.8 % (0-2.0); EOSINOPHIL 3.2 % (0-4.5); MCH 33.2 pg (25.7-33.7); MCHC 34.9 g/dl (32.0-36.0); MEAN CELL VOLUME 95.2 fl (80-96); MEAN PLT VOLUME 7.8 fl (7.5-11.1); NEUTROPHILS 56.9 % (42.8-82.8); PLATELET COUNT 106 K/MM3 (134-434); RDW 21.6 % (11.6-15.6); WHITE BLOOD COUNT 3.1 K/mm3 (4.0-10.0)
[2017-05-03 09:01] LABS: ALBUMIN 2.6 g/dl (3.4-5.0); ALK PHOS 93 U/L (45-117); ANION GAP 10 (8-16); BILIRUBIN,TOTAL 0.5 mg/dL (0.2-1.0); CALCIUM 8.4 mg/dL (8.5-10.1); CO2 22 mmol/L (21-32); CREATININE 0.8 mg/dL (0.55-1.02); GLUCOSE,RANDOM 129 mg/dL (74-106); SGOT/AST 37 U/L (15-37); SGPT/ALT 55 U/L (12-78); TOT PROT 5.6 g/dl (6.4-8.2)
[2017-05-03] MEDS: NYSTATIN 100,000 UNIT/GM TOPICAL CREAM 15 GM TUBE TP SCH ×2 (12:26→22:30)
[2017-05-03] MEDS: AMINO ACIDS 4.25%/D5W 1,000 ML IV SCH (12:26)
--- NOTE | 2017-05-03 16:04 | PN ---
Physical Exam: SUBJECTIVE: Patient seen and examined at bedside. Minimally verbal using grunts. OBJECTIVE: Vital Signs Period Temp Pulse Resp BP Sys/Damon Pulse Ox Last 24 Hr 98.8 F-99.3 F 98-116 18-22 131-164/67-86 98 GENERAL: The patient is awake, alert, and fully oriented, in no acute distress. HEAD: Normal with no signs of trauma. NECK: Trachea midline, full range of motion, supple. (-)JVD LUNGS: Breath sounds equal, clear to auscultation bilaterally, no wheezes, no crackles, no accessory muscle use. HEART: Tachycardic, S1, S2 without murmur, rub or gallop. ABDOMEN: Soft, nontender, nondistended, normoactive bowel sounds, no guarding, no rebound, no hepatosplenomegaly, no masses. EXTREMITIES: 2+ pulses, warm, well-perfused, no edema. NEUROLOGICAL: Cranial nerves II through XII grossly intact. Gait not observed. SKIN: Warm, dry, normal turgor, no rashes or lesions noted Laboratory Results - last 24 hr 05/03/17 05/03/17 06:50 06:50 WBC 3.1 L RBC 2.75 L Hgb 9.1 L Hct 26.2 L MCV 95.2 MCH 33.2 MCHC 34.9 RDW 21.6 H Plt Count 106 L MPV 7.8 Neutrophils % 56.9 Lymphocytes % 35.5 Monocytes % 3.6 L Eosinophils % 3.2 Basophils % 0.8 Sodium 134 L Potassium 3.9 Chloride 102 Carbon Dioxide 22 Anion Gap 10 BUN 34 H Creatinine 0.8 D Creat Clearance w eGFR > 60 Random Glucose 129 H Calcium 8.4 L Total Bilirubin 0.5 D AST 37 ALT 55 Alkaline Phosphatase 93 D Total Protein 5.6 L Albumin 2.6 L Active Medications Generic Name Dose Route Start Last Admin Trade Name Freq PRN Reason Stop Dose Admin Acetaminophen 650 mg 04/14/17 10:51 04/28/17 14:54 Tylenol Suppository - [place] 650 mg Q4H PRN Administration FEVER OR PAIN Amino Acids 1,000 mls @ 60 mls/hr 04/23/17 12:26 05/03/17 12:26 Clinimix - IV Not Given Q16H JOCELYNE Pantoprazole Sodium 80 mg/ 100 mls @ 10 mls/hr 04/29/17 11:30 05/03/17 06:06 Sodium Chloride IVPB 10 mls/hr Q10H JOCELYNE Administration 8 MG/HR Levothyroxine Sodium 44 mcg 04/12/17 17:30 05/03/17 06:03 Synthroid Injection - IVPUSH 44 mcg DAILY@0700 JOCELYNE Administration Metoprolol Tartrate 2.5 mg 04/12/17 17:30 05/03/17 09:33 Lopressor Injection - IVPB 2.5 mg Q6H-IV [facility]OC[facility]NE Administration Multivitamins/Minerals 10 ml 04/22/17 22:00 05/02/17 21:02 Infuvite Adult - IV 10 ml HS JOCELYNE Administration Nystatin 1 applic 04/29/17 22:00 05/03/17 12:26 Mycostatin Cream - TP Not Given BID JOCELYNE Potassium Phos/Sodium Phos 1 packet 04/28/17 14:30 05/03/17 14:27 Phos-Nak Packet - NGT 1 packet TID [facility]OC[facility]NE Administration Microbiology 04/10/17 13:25 Blood - Peripheral Venous Blood Culture - Final NO GROWTH AFTER 5 DAYS INCUBATION 04/10/17 13:25 Blood - Peripheral Venous Blood Culture - Final NO GROWTH AFTER 5 DAYS INCUBATION 04/11/17 17:35 Urine - Urine - Catheterized Urine Culture - Final NO GROWTH OBTAINED 04/03/17 16:30 Blood - Peripheral Venous Blood Culture - Final NO GROWTH AFTER 5 DAYS INCUBATION 04/04/17 08:00 Urine - Urine Clean Catch Urine Culture - Final Diphtheroid/Corynebacterium 04/01/17 18:15 Urine - Urine Clean Catch Urine Culture - Final Alpha Hemolytic Streptococcus ASSESSMENT/PLAN: A: 82yo woman with worsening dementia and difficulty swallowing. 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 P: #UTI - resolved #pancytopenia - trend CBC - Heme consult pending #CHF - strict I&O's - daily weights #HTN - increase Lopressor IV to 5mg #hypothyroidism - synthroid #PNA - resolved - ID following - HOB>30 degrees #F/E/N - Jevity 1.5 @30cc/hr. Increase to goal of 50cc/hr - will need PEG after heme eval - Clinimix #PPX - Protonix - sqh Dispo- requires continued inpatient evaluation of acute medical conditions Visit type - Emergency Visit Emergency Visit: Yes ED Registration Date: 04/01/17 Care time: The patient presented to the Emergency Department on the above date and was hospitalized for further evaluation of their emergent condition. - New Patient This patient is new to me today: Yes Date on this admission: 05/03/17 - Critical Care Critical Care patient: No
--- NOTE | 2017-05-03 19:37 | PN ---
Progress Note, Physician History of Present Illness: awake alert no issues awaiting for final plan - Current Medication List Current Medications: Active Medications Acetaminophen (Tylenol Suppository -) 650 mg UT Q4H PRN PRN Reason: FEVER OR PAIN Last Admin: 04/28/17 14:54 Dose: 650 mg Amino Acids (Clinimix -) 1,000 mls @ 60 mls/hr IV Q16H [facility] Last Admin: 05/03/17 12:26 Dose: Not Given Pantoprazole Sodium 80 mg/ (Sodium Chloride) 100 mls @ 10 mls/hr IVPB Q10H JOCELYNE PRN Reason: 8 MG/HR Last Admin: 05/03/17 16:37 Dose: Not Given Levothyroxine Sodium (Synthroid Injection -) 44 mcg IVPUSH DAILY@0700 [facility] Last Admin: 05/03/17 06:03 Dose: 44 mcg Metoprolol Tartrate (Lopressor Injection -) 2.5 mg IVPB Q6H-IV [facility] Last Admin: 05/03/17 16:36 Dose: 2.5 mg Multivitamins/Minerals (Infuvite Adult -) 10 ml IV HS [facility] Last Admin: 05/02/17 21:02 Dose: 10 ml Nystatin (Mycostatin Cream -) 1 applic TP BID [facility] Last Admin: 05/03/17 12:26 Dose: Not Given Potassium Phos/Sodium Phos (Phos-Nak Packet -) 1 packet NGT TID [facility] Last Admin: 05/03/17 14:27 Dose: 1 packet - Objective Vital Signs: Vital Signs Temperature 99.3 F 05/03/17 14:38 Pulse Rate 118 H 05/03/17 16:36 Respiratory Rate 22 05/03/17 14:38 Blood Pressure 151/88 05/03/17 16:36 O2 Sat by Pulse Oximetry (%) 98 05/02/17 20:34 Constitutional: Yes: No Distress, Calm Cardiovascular: Yes: Regular Rate and Rhythm Respiratory: Yes: Regular, CTA Bilaterally Gastrointestinal: Yes: Normal Bowel Sounds, Soft Musculoskeletal: Yes: WNL Extremities: Yes: WNL Neurological: Yes: Alert Psychiatric: Yes: Alert Labs: CBC, BMP 05/03/17 06:50 05/03/17 06:50 INR, PTT INR 1.20 (0.82-1.09) H 04/27/17 06:45 Assessment/Plan Problem List - Problems (1) UTI (urinary tract infection) Code(s): N39.0 - URINARY TRACT INFECTION, SITE NOT SPECIFIED (2) Dementia Code(s): F03.90 - UNSPECIFIED DEMENTIA WITHOUT BEHAVIORAL DISTURBANCE (3) Pancytopenia Code(s): D61.818 - OTHER PANCYTOPENIA (4) CHF (congestive heart failure) Code(s): I50.9 - HEART FAILURE, UNSPECIFIED Qualifiers: Congestive heart failure type: unspecified congestive heart failure type Congestive heart failure chronicity: chronic Qualified Code(s): I50.9 - Heart failure, unspecified (5) HTN (hypertension) Code(s): I10 - ESSENTIAL (PRIMARY) HYPERTENSION (6) Hypothyroidism Code(s): E03.9 - HYPOTHYROIDISM, UNSPECIFIED Aspiration pneumonia Code(s): J69.0 - PNEUMONITIS DUE TO INHALATION OF FOOD AND VOMIT plan continue current mgmt nutrition support aspiration precautions
--- NOTE | 2017-05-03 22:31 | CONSULT ---
Consult - text type - Consultation Consultation Note: 82 year old female with PMH of hypothyroidism, and CHF (s/p stent 2 years prior for suspected FL) presenting with repeat falls, and altered mental status over the past few months. She is not on blood thinners. She has also had decreased food intake over the past few months although she has only lost a few pounds. She was seen by her PCP Dr. Mitchell earlier today and then sent to the ED for admission for altered mental status. Denies fevers, chills, nausea, vomiting, diarrhea, constipation, urinary symptoms, visual changes, headaches, presyncopal sensation, or palpitations. - Past Medical History asthma COPD CHF HTN Hypercholesterolemia Hypothyroid Allergies/Adverse Reactions: Allergies Allergy/AdvReac Type Severity Reaction Status Date / Time pineapple [Pineapple] Allergy Severe Swelling Verified 04/01/17 13:45 adhesive tape Allergy Mild Rash Verified 04/01/17 13:45 Home Medications: Ambulatory Orders Aspirin Coated [Ecotrin -] 81 mg PO DAILY #30 tablet.ec 01/03/14 Carvedilol [Coreg -] 3.125 mg PO BID #60 tablet 01/03/14 Furosemide [Lasix -] 40 mg PO DAILY #30 tablet 01/03/14 Levofloxacin [Levaquin -] 250 mg PO DAILY #3 tablet 01/03/14 Levothyroxine [Synthroid -] 100 mcg PO DAILY@0700 #30 tablet 01/03/14 Lisinopril [Prinivil] 2.5 mg PO DAILY #30 tablet 01/03/14 - Surgical History Abdominal Surgery: Yes Appendectomy: Yes Cholecystectomy: Yes Neurologic Surgery: Yes (HERNIATED DISC) - Psycho/Social/Smoking Cessation Hx Smoking Status: Yes Smoking History: Former smoker - Vital Signs Afebrile VSS Cor: RSR, No murmurs, No gallops Lungs: Clear to P&A Abd: Soft, Normal bowel sounds, No organomegaly Ext:No significant edema Skin: No rashes, Integument intact Abnormal Lab Results 05/03/17 05/03/17 06:50 06:50 WBC 3.1 L RBC 2.75 L Hgb 9.1 L Hct 26.2 L RDW 21.6 H Plt Count 106 L Monocytes % 3.6 L Sodium 134 L BUN 34 H Random Glucose 129 H Calcium 8.4 L Total Protein 5.6 L Albumin 2.6 L Active Medications Generic Name Dose Route Start Last Admin Trade Name Freq PRN Reason Stop Dose Admin Acetaminophen 650 mg 04/14/17 10:51 04/28/17 14:54 Tylenol Suppository - ND 650 mg Q4H PRN Administration FEVER OR PAIN Amino Acids 1,000 mls @ 60 mls/hr 04/23/17 12:26 05/04/17 04:30 Clinimix - IV Not Given Q16H JOCELYNE Pantoprazole Sodium 80 mg/ 100 mls @ 10 mls/hr 04/29/17 11:30 05/04/17 02:28 Sodium Chloride IVPB 10 mls/hr Q10H JOCELYNE Administration 8 MG/HR Levothyroxine Sodium 44 mcg 04/12/17 17:30 05/04/17 06:48 Synthroid Injection - IVPUSH 44 mcg DAILY@0700 JOCELYNE Administration Metoprolol Tartrate 2.5 mg 04/12/17 17:30 05/04/17 02:23 Lopressor Injection - IVPB 2.5 mg Q6H-IV [facility] Administration Multivitamins/Minerals 10 ml 04/22/17 22:00 05/03/17 22:40 Infuvite Adult - IV 10 ml HS JOCELYNE Administration Nystatin 1 applic 04/29/17 22:00 05/03/17 22:30 Mycostatin Cream - TP 1 applic BID JOCELYNE Administration Potassium Phos/Sodium Phos 1 packet 04/28/17 14:30 05/04/17 06:48 Phos-Nak Packet - NGT 1 packet TID JOCELYNE Administration A/P 82 year old female with PMH of FL s/p stent placement on ASA presenting with falls and and increasing memory loss and confusion over the past few months. Admitted with worsening functional status, fsilure to thrive,advanced dementia, ? aspiration pneumonia, s/p zosyn Pancytopenia--nl iron studies/B12/folate TSH--low on synthroid with mildly elevated fT4-----adjust dose of synthroid per PMD check U/S liver--? liver disease check flowcytometry/FISH ?occult infection/? aspiration ongoing discusions regarding goals of care with family
[2017-05-03] MEDS: MULTIVIT INJ. ADULT COMBO WITH VIT K 1 COMBO 10 ML VIAL IV SCH (22:40)
[2017-05-04] MEDS: METOPROLOL TARTRATE 5 MG/5 ML VIAL IVPB SCH ×4 (02:23→23:00)
[2017-05-04] MEDS: PANTOPRAZOLE SODIUM 80 MG in SODIUM CHLORIDE 100 ML IVPB SCH ×3 (02:28→21:01)
[2017-05-04] MEDS: AMINO ACIDS 4.25%/D5W 1,000 ML IV SCH ×2 (04:30→08:18)
[2017-05-04] MEDS ORDERED: PT OWN MED DRAWER 7, Y5N ONE (05:56)
[2017-05-04] MEDS: NAPH,MB-DB/K PH,MBDB POWDER PACKET NGT SCH ×3 (06:48→23:03)
[2017-05-04] MEDS: LEVOTHYROXINE SODIUM 100 MCG VIAL IVPUSH SCH (06:48)
[2017-05-04 08:11] LABS: BASOPHIL 1.2 % (0-2.0); EOSINOPHIL 3.6 % (0-4.5); MCH 33.3 pg (25.7-33.7); MCHC 34.6 g/dl (32.0-36.0); MEAN CELL VOLUME 96.2 fl (80-96); MEAN PLT VOLUME 7.7 fl (7.5-11.1); NEUTROPHILS 58.8 % (42.8-82.8); PLATELET COUNT 147 K/MM3 (134-434); RDW 22.2 % (11.6-15.6); WHITE BLOOD COUNT 3.3 K/mm3 (4.0-10.0)
[2017-05-04 08:35] LABS: ALBUMIN 2.6 g/dl (3.4-5.0); ANION GAP 10 (8-16); CALCIUM 8.6 mg/dL (8.5-10.1); CO2 25 mmol/L (21-32); CREATININE 0.7 mg/dL (0.55-1.02); GLUCOSE,RANDOM 124 mg/dL (74-106); SGOT/AST 46 U/L (15-37); SGPT/ALT 67 U/L (12-78)
[2017-05-04 08:38] LABS: ALK PHOS 93 U/L (45-117); BILIRUBIN,TOTAL 0.4 mg/dL (0.2-1.0)
[2017-05-04] MEDS: NYSTATIN 100,000 UNIT/GM TOPICAL CREAM 15 GM TUBE TP SCH ×2 (10:07→23:03)
--- NOTE | 2017-05-04 12:54 | PN ---
Progress Note, Physician History of Present Illness: awake alert no issues awaiting for final plan - Current Medication List Current Medications: Active Medications Acetaminophen (Tylenol Suppository -) 650 mg ID Q4H PRN PRN Reason: FEVER OR PAIN Last Admin: 04/28/17 14:54 Dose: 650 mg Amino Acids (Clinimix -) 1,000 mls @ 60 mls/hr IV Q16H [facility] Last Admin: 05/04/17 08:18 Dose: 60 mls/hr Pantoprazole Sodium 80 mg/ (Sodium Chloride) 100 mls @ 10 mls/hr IVPB Q10H JOCELYNE PRN Reason: 8 MG/HR Last Admin: 05/04/17 11:46 Dose: 10 mls/hr Levothyroxine Sodium (Synthroid Injection -) 44 mcg IVPUSH DAILY@0700 [facility] Last Admin: 05/04/17 06:48 Dose: 44 mcg Metoprolol Tartrate (Lopressor Injection -) 2.5 mg IVPB Q6H-IV [facility] Last Admin: 05/04/17 08:19 Dose: 2.5 mg Multivitamins/Minerals (Infuvite Adult -) 10 ml IV HS [facility] Last Admin: 05/03/17 22:40 Dose: 10 ml Nystatin (Mycostatin Cream -) 1 applic TP BID [facility] Last Admin: 05/04/17 10:07 Dose: 1 applic Potassium Phos/Sodium Phos (Phos-Nak Packet -) 1 packet NGT TID [facility] Last Admin: 05/04/17 06:48 Dose: 1 packet - Objective Vital Signs: Vital Signs Temperature 97.4 F L 05/04/17 08:30 Pulse Rate 90 05/04/17 08:30 Respiratory Rate 18 05/04/17 08:30 Blood Pressure 121/65 05/04/17 08:30 O2 Sat by Pulse Oximetry (%) 96 05/03/17 21:00 Constitutional: Yes: No Distress, Calm Cardiovascular: Yes: Regular Rate and Rhythm Respiratory: Yes: Regular, CTA Bilaterally Gastrointestinal: Yes: Normal Bowel Sounds, Soft, Other (ng tube in place) Musculoskeletal: Yes: WNL Extremities: Yes: WNL Neurological: Yes: Alert Psychiatric: Yes: Alert Labs: CBC, BMP 05/04/17 07:00 05/04/17 07:00 INR, PTT INR 1.20 (0.82-1.09) H 10/03/17 06:45 - ....Imaging Chest X-ray: Report Reviewed, Image Reviewed Ultrasound: Report Reviewed, Image Reviewed Assessment/Plan Problem List - Problems (1) UTI (urinary tract infection) Code(s): N39.0 - URINARY TRACT INFECTION, SITE NOT SPECIFIED (2) Dementia Code(s): F03.90 - UNSPECIFIED DEMENTIA WITHOUT BEHAVIORAL DISTURBANCE (3) Pancytopenia Code(s): D61.818 - OTHER PANCYTOPENIA (4) CHF (congestive heart failure) Code(s): I50.9 - HEART FAILURE, UNSPECIFIED Qualifiers: Congestive heart failure type: unspecified congestive heart failure type Congestive heart failure chronicity: chronic Qualified Code(s): I50.9 - Heart failure, unspecified (5) HTN (hypertension) Code(s): I10 - ESSENTIAL (PRIMARY) HYPERTENSION (6) Hypothyroidism Code(s): E03.9 - HYPOTHYROIDISM, UNSPECIFIED Aspiration pneumonia Code(s): J69.0 - PNEUMONITIS DUE TO INHALATION OF FOOD AND VOMIT plan continue current mgmt nutrition support aspiration precautions
--- NOTE | 2017-05-04 14:26 | PN ---
Progress Note (short form) - Note Progress Note: Patient seen and examined. Pt minimally verbal Afebrile VSS Cor: RRR Lungs: anterior auscultations wnl Abd: Soft Ext:contracted Upper extremities Appears sleepy, minimally verbal Temp Pulse Resp BP Pulse Ox 97.4 F L 90 18 121/65 96 05/04/17 08:30 05/04/17 08:30 05/04/17 08:30 05/04/17 08:30 05/03/17 21:00 Current Medications Generic Name Dose Route Start Last Admin Trade Name Freq PRN Reason Stop Dose Admin Acetaminophen 650 mg 04/14/17 10:51 04/28/17 14:54 Tylenol Suppository - [place] 650 mg Q4H PRN Administration FEVER OR PAIN Amino Acids 1,000 mls @ 60 mls/hr 04/23/17 12:26 05/04/17 08:18 Clinimix - IV 60 mls/hr Q16H JOCELYNE Administration Pantoprazole Sodium 80 mg/ 100 mls @ 10 mls/hr 04/29/17 11:30 05/04/17 11:46 Sodium Chloride IVPB 10 mls/hr Q10H JOCELYNE Administration 8 MG/HR Levothyroxine Sodium 44 mcg 04/12/17 17:30 05/04/17 06:48 Synthroid Injection - IVPUSH 44 mcg DAILY@0700 JOCELYNE Administration Metoprolol Tartrate 2.5 mg 04/12/17 17:30 05/04/17 08:19 Lopressor Injection - IVPB 2.5 mg Q6H-IV [facility] Administration Multivitamins/Minerals 10 ml 04/22/17 22:00 05/03/17 22:40 Infuvite Adult - IV 10 ml HS JOCELYNE Administration Nystatin 1 applic 04/29/17 22:00 05/04/17 10:07 Mycostatin Cream - TP 1 applic BID JOCELYNE Administration Potassium Phos/Sodium Phos 1 packet 04/28/17 14:30 05/04/17 13:30 Phos-Nak Packet - NGT 1 packet TID JOCELYNE Administration CBC, BMP 05/04/17 07:00 05/04/17 07:00 Assessment/Plan: 82 year old female with PMH of [place] s/p stent placement on ASA presenting with falls and and increasing memory loss and confusion over the past few months. Admitted with worsening functional status, failure to thrive,advanced dementia, ? aspiration pneumonia, s/p zosyn Pancytopenia-, now platelets normalized, White cell of 3300 and Hgb of 8.9 , nl iron studies/B12/folate TSH--low on synthroid with mildly elevated fT4-----adjust dose of synthroid per PMD Us liver reviewed check flowcytometry/FISH, sent out ongoing discusions regarding goals of care with family will follow supportive care.
--- NOTE | 2017-05-04 16:01 | PN ---
Progress Note, Physician Chief Complaint: More alert today but still not able to give subjective - Current Medication List Current Medications: Active Medications Acetaminophen (Tylenol Suppository -) 650 mg [place] Q4H PRN PRN Reason: FEVER OR PAIN Last Admin: 04/28/17 14:54 Dose: 650 mg Pantoprazole Sodium 80 mg/ (Sodium Chloride) 100 mls @ 10 mls/hr IVPB Q10H [facility] PRN Reason: 8 MG/HR Last Admin: 05/04/17 11:46 Dose: 10 mls/hr Levothyroxine Sodium (Synthroid Injection -) 44 mcg IVPUSH DAILY@0700 [facility] Last Admin: 05/04/17 06:48 Dose: 44 mcg Metoprolol Tartrate (Lopressor Injection -) 2.5 mg IVPB Q6H-IV [facility] Last Admin: 05/04/17 15:07 Dose: 2.5 mg Multivitamins/Minerals (Infuvite Adult -) 10 ml IV HS [facility] Last Admin: 05/03/17 22:40 Dose: 10 ml Nystatin (Mycostatin Cream -) 1 applic TP BID [facility] Last Admin: 05/04/17 10:07 Dose: 1 applic Potassium Phos/Sodium Phos (Phos-Nak Packet -) 1 packet NGT TID [facility] Last Admin: 05/04/17 13:30 Dose: 1 packet - Objective Vital Signs: Vital Signs Temperature 37.1 C 05/04/17 14:57 Pulse Rate 87 05/04/17 15:07 Respiratory Rate 22 05/04/17 14:57 Blood Pressure 157/87 05/04/17 15:07 O2 Sat by Pulse Oximetry (%) 96 05/03/17 21:00 Constitutional: Yes: No Distress, Calm, Thin Cardiovascular: Yes: Regular Rate and Rhythm. No: Gallop, Murmur, Rub Respiratory: Yes: Regular, CTA Bilaterally. No: Rales, Rhonchi, Wheezes Gastrointestinal: Yes: Normal Bowel Sounds, Soft. No: Distention, Tenderness Extremities: Yes: WNL Edema: No Labs: CBC, BMP 05/04/17 07:00 05/04/17 07:00 INR, PTT INR 1.20 (0.82-1.09) H 04/27/17 06:45 Problem List - Problems (1) UTI (urinary tract infection) Code(s): N39.0 - URINARY TRACT INFECTION, SITE NOT SPECIFIED (2) Dementia Code(s): F03.90 - UNSPECIFIED DEMENTIA WITHOUT BEHAVIORAL DISTURBANCE (3) Pancytopenia Code(s): D61.818 - OTHER PANCYTOPENIA (4) CHF (congestive heart failure) Code(s): I50.9 - HEART FAILURE, UNSPECIFIED Qualifiers: Congestive heart failure type: unspecified congestive heart failure type Congestive heart failure chronicity: chronic Qualified Code(s): I50.9 - Heart failure, unspecified; I50.9 - Heart failure, unspecified; I50.9 - Heart failure, unspecified; I50.9 - Heart failure, unspecified (5) HTN (hypertension) Code(s): I10 - ESSENTIAL (PRIMARY) HYPERTENSION (6) Hypothyroidism Code(s): E03.9 - HYPOTHYROIDISM, UNSPECIFIED (7) Aspiration pneumonia Code(s): J69.0 - PNEUMONITIS DUE TO INHALATION OF FOOD AND VOMIT (8) Anemia Code(s): D64.9 - ANEMIA, UNSPECIFIED Qualifiers: Anemia type: other cause Other causes of anemia: acute posthemorrhagic Qualified Code(s): D62 - Acute posthemorrhagic anemia; D62 - Acute posthemorrhagic anemia Assessment/Plan (1) Aspiration pneumonia Assessment/Plan: -ID following -s/p full course zosyn Code(s): N39.0 - URINARY TRACT INFECTION, SITE NOT SPECIFIED (2) Dementia Assessment/Plan: -patient appears at baseline -planning for PEG tube, holding aspirin Code(s): F03.90 - UNSPECIFIED DEMENTIA WITHOUT BEHAVIORAL DISTURBANCE (3) Pancytopenia Assessment/Plan: -monitor Code(s): D61.818 - OTHER PANCYTOPENIA (4) CHF (congestive heart failure) Assessment/Plan: -not in exacerbation Code(s): I50.9 - HEART FAILURE, UNSPECIFIED Qualifiers: Congestive heart failure type: unspecified congestive heart failure type Congestive heart failure chronicity: chronic Qualified Code(s): I50.9 - Heart failure, unspecified (5) HTN (hypertension) Assessment/Plan: -continue IV metoprolol Code(s): I10 - ESSENTIAL (PRIMARY) HYPERTENSION (6) Hypothyroidism Assessment/Plan: -continue IV synthroid Code(s): E03.9 - HYPOTHYROIDISM, UNSPECIFIED (7) FEN -now on tube feeds (8) Anemia -planning for EGD and PEG tube per GI Dispo -plan for discharge to SNF 24 hours after PEG tube replacement
[2017-05-04] MEDS: MULTIVIT INJ. ADULT COMBO WITH VIT K 1 COMBO 10 ML VIAL IV SCH (23:02)
[2017-05-05 00:06] LABS: A/G RATIO 1.2 (0.7-1.7); ALBUMIN 2.9 g/dL (2.9-4.4); ALPHA-1-GLOBULIN 0.3 g/dL (0.0-0.4); BETA GLOBULIN 0.8 g/dL (0.7-1.3); GAMMA GLOBULIN 0.8 g/dL (0.4-1.8); GLOBULIN, TOTAL 2.5 g/dL (2.2-3.9); M-SPIKE Not Observed g/dL (Not Observed); TOTAL PROTEIN 5.4 g/dL (6.0-8.5)
[2017-05-05] MEDS: METOPROLOL TARTRATE 5 MG/5 ML VIAL IVPB SCH ×4 (02:31→22:28)
[2017-05-05] MEDS ORDERED: PT OWN MED DRAWER 7, Y5N ONE (06:24)
[2017-05-05] MEDS: LEVOTHYROXINE SODIUM 100 MCG VIAL IVPUSH SCH (06:46)
[2017-05-05] MEDS: NAPH,MB-DB/K PH,MBDB POWDER PACKET NGT SCH ×3 (06:46→22:37)
[2017-05-05] MEDS: PANTOPRAZOLE SODIUM 80 MG in SODIUM CHLORIDE 100 ML IVPB SCH ×2 (06:54→18:04)
[2017-05-05 08:10] LABS: BASOPHIL 0.6 % (0-2.0); EOSINOPHIL 5.2 % (0-4.5); MCH 33.6 pg (25.7-33.7); MCHC 35.1 g/dl (32.0-36.0); MEAN CELL VOLUME 95.9 fl (80-96); MEAN PLT VOLUME 7.1 fl (7.5-11.1); NEUTROPHILS 58.4 % (42.8-82.8); PLATELET COUNT 142 K/MM3 (134-434); RDW 21.4 % (11.6-15.6); WHITE BLOOD COUNT 2.8 K/mm3 (4.0-10.0)
[2017-05-05 08:32] LABS: ANION GAP 9 (8-16); CALCIUM 8.8 mg/dL (8.5-10.1); CO2 28 mmol/L (21-32); GLUCOSE,RANDOM 128 mg/dL (74-106)
[2017-05-05 08:33] LABS: CREATININE 0.8 mg/dL (0.55-1.02); PHOSPHOROUS 3.7 mg/dL (2.5-4.9)
[2017-05-05] MEDS: NYSTATIN 100,000 UNIT/GM TOPICAL CREAM 15 GM TUBE TP SCH ×2 (09:26→22:38)
--- NOTE | 2017-05-05 12:48 | PN ---
Progress Note, SERVER MANAGER - Note Progress Note: Medical events noted. Now with NGT. Family undecided about PEG, per nursing. Too sleepy for swallowing reassessment. Will try again.
--- NOTE | 2017-05-05 14:52 | PN ---
Progress Note, Physician History of Present Illness: family still undecided peg tube feeding continuing - Current Medication List Current Medications: Active Medications Acetaminophen (Tylenol Suppository -) 650 mg [place] Q4H PRN PRN Reason: FEVER OR PAIN Last Admin: 04/28/17 14:54 Dose: 650 mg Pantoprazole Sodium 80 mg/ (Sodium Chloride) 100 mls @ 10 mls/hr IVPB Q10H JOCELYNE PRN Reason: 8 MG/HR Last Admin: 05/05/17 06:54 Dose: 10 mls/hr Levothyroxine Sodium (Synthroid Injection -) 44 mcg IVPUSH DAILY@0700 [facility] Last Admin: 05/05/17 06:46 Dose: 44 mcg Metoprolol Tartrate (Lopressor Injection -) 2.5 mg IVPB Q6H-IV [facility] Last Admin: 05/05/17 09:24 Dose: 2.5 mg Multivitamins/Minerals (Infuvite Adult -) 10 ml IV HS [facility] Last Admin: 05/04/17 23:02 Dose: Not Given Nystatin (Mycostatin Cream -) 1 applic TP BID [facility] Last Admin: 05/05/17 09:26 Dose: 1 applic Potassium Phos/Sodium Phos (Phos-Nak Packet -) 1 packet NGT TID [facility] Last Admin: 05/05/17 14:43 Dose: 1 packet - Objective Vital Signs: Vital Signs Temperature 98.5 F 05/05/17 06:00 Pulse Rate 96 H 05/05/17 09:50 Respiratory Rate 16 05/05/17 09:50 Blood Pressure 145/78 05/05/17 09:50 O2 Sat by Pulse Oximetry (%) 96 05/04/17 21:00 Constitutional: Yes: No Distress, Calm Cardiovascular: Yes: Regular Rate and Rhythm Respiratory: Yes: Regular, CTA Bilaterally Gastrointestinal: Yes: Normal Bowel Sounds, Soft Musculoskeletal: Yes: WNL Extremities: Yes: WNL Neurological: Yes: Alert, Other Psychiatric: Yes: Alert Labs: CBC, BMP 05/05/17 06:58 05/05/17 06:58 INR, PTT INR 1.20 (0.82-1.09) H 04/27/17 06:45 Assessment/Plan Problem List - Problems (1) UTI (urinary tract infection) Code(s): N39.0 - URINARY TRACT INFECTION, SITE NOT SPECIFIED (2) Dementia Code(s): F03.90 - UNSPECIFIED DEMENTIA WITHOUT BEHAVIORAL DISTURBANCE (3) Pancytopenia Code(s): D61.818 - OTHER PANCYTOPENIA (4) CHF (congestive heart failure) Code(s): I50.9 - HEART FAILURE, UNSPECIFIED Qualifiers: Congestive heart failure type: unspecified congestive heart failure type Congestive heart failure chronicity: chronic Qualified Code(s): I50.9 - Heart failure, unspecified (5) HTN (hypertension) Code(s): I10 - ESSENTIAL (PRIMARY) HYPERTENSION (6) Hypothyroidism Code(s): E03.9 - HYPOTHYROIDISM, UNSPECIFIED Aspiration pneumonia Code(s): J69.0 - PNEUMONITIS DUE TO INHALATION OF FOOD AND VOMIT plan continue current mgmt nutrition support aspiration precautions await for final family plan
--- NOTE | 2017-05-05 15:09 | PN ---
Progress Note, Physician Chief Complaint: Interactive but unable to obtain subjective - Current Medication List Current Medications: Active Medications Acetaminophen (Tylenol Suppository -) 650 mg [place] Q4H PRN PRN Reason: FEVER OR PAIN Last Admin: 04/28/17 14:54 Dose: 650 mg Pantoprazole Sodium 80 mg/ (Sodium Chloride) 100 mls @ 10 mls/hr IVPB Q10H JOCELYNE PRN Reason: 8 MG/HR Last Admin: 05/05/17 06:54 Dose: 10 mls/hr Levothyroxine Sodium (Synthroid Injection -) 44 mcg IVPUSH DAILY@0700 [facility] Last Admin: 05/05/17 06:46 Dose: 44 mcg Metoprolol Tartrate (Lopressor Injection -) 2.5 mg IVPB Q6H-IV [facility] Last Admin: 05/05/17 09:24 Dose: 2.5 mg Multivitamins/Minerals (Infuvite Adult -) 10 ml IV HS [facility] Last Admin: 05/04/17 23:02 Dose: Not Given Nystatin (Mycostatin Cream -) 1 applic TP BID [facility] Last Admin: 05/05/17 09:26 Dose: 1 applic Potassium Phos/Sodium Phos (Phos-Nak Packet -) 1 packet NGT TID [facility] Last Admin: 05/05/17 14:43 Dose: 1 packet - Objective Vital Signs: Vital Signs Temperature 36.9 C 05/05/17 06:00 Pulse Rate 96 H 05/05/17 09:50 Respiratory Rate 16 05/05/17 09:50 Blood Pressure 145/78 05/05/17 09:50 O2 Sat by Pulse Oximetry (%) 96 05/04/17 21:00 Constitutional: Yes: Well Nourished, No Distress, Calm Cardiovascular: Yes: Regular Rate and Rhythm. No: Gallop, Murmur, Rub Respiratory: Yes: Regular, Rhonchi. No: Rales, Wheezes Gastrointestinal: Yes: Normal Bowel Sounds, Soft. No: Distention, Tenderness Extremities: Yes: WNL Edema: No Labs: CBC, BMP 05/05/17 06:58 05/05/17 06:58 INR, PTT INR 1.20 (0.82-1.09) H 04/27/17 06:45 Problem List - Problems (1) UTI (urinary tract infection) Code(s): N39.0 - URINARY TRACT INFECTION, SITE NOT SPECIFIED (2) Dementia Code(s): F03.90 - UNSPECIFIED DEMENTIA WITHOUT BEHAVIORAL DISTURBANCE (3) Pancytopenia Code(s): D61.818 - OTHER PANCYTOPENIA (4) CHF (congestive heart failure) Code(s): I50.9 - HEART FAILURE, UNSPECIFIED Qualifiers: Congestive heart failure type: unspecified congestive heart failure type Congestive heart failure chronicity: chronic Qualified Code(s): I50.9 - Heart failure, unspecified; I50.9 - Heart failure, unspecified; I50.9 - Heart failure, unspecified; I50.9 - Heart failure, unspecified (5) HTN (hypertension) Code(s): I10 - ESSENTIAL (PRIMARY) HYPERTENSION (6) Hypothyroidism Code(s): E03.9 - HYPOTHYROIDISM, UNSPECIFIED (7) Aspiration pneumonia Code(s): J69.0 - PNEUMONITIS DUE TO INHALATION OF FOOD AND VOMIT (8) Anemia Code(s): D64.9 - ANEMIA, UNSPECIFIED Qualifiers: Anemia type: other cause Other causes of anemia: acute posthemorrhagic Qualified Code(s): D62 - Acute posthemorrhagic anemia; D62 - Acute posthemorrhagic anemia Assessment/Plan (1) Aspiration pneumonia Assessment/Plan: -ID following -s/p full course zosyn Code(s): N39.0 - URINARY TRACT INFECTION, SITE NOT SPECIFIED (2) Dementia Assessment/Plan: -patient appears at baseline -planning for PEG tube, holding aspirin Code(s): F03.90 - UNSPECIFIED DEMENTIA WITHOUT BEHAVIORAL DISTURBANCE (3) Pancytopenia Assessment/Plan: -monitor Code(s): D61.818 - OTHER PANCYTOPENIA (4) CHF (congestive heart failure) Assessment/Plan: -not in exacerbation Code(s): I50.9 - HEART FAILURE, UNSPECIFIED Qualifiers: Congestive heart failure type: unspecified congestive heart failure type Congestive heart failure chronicity: chronic Qualified Code(s): I50.9 - Heart failure, unspecified (5) HTN (hypertension) Assessment/Plan: -continue IV metoprolol Code(s): I10 - ESSENTIAL (PRIMARY) HYPERTENSION (6) Hypothyroidism Assessment/Plan: -continue IV synthroid Code(s): E03.9 - HYPOTHYROIDISM, UNSPECIFIED (7) FEN -now on tube feeds (8) Anemia -planning for EGD and PEG tube per GI Dispo -plan for discharge to SNF 24 hours after PEG tube replacement
[2017-05-06] MEDS: METOPROLOL TARTRATE 5 MG/5 ML VIAL IVPB SCH ×4 (02:56→23:08)
[2017-05-06] MEDS: PANTOPRAZOLE SODIUM 80 MG in SODIUM CHLORIDE 100 ML IVPB SCH ×3 (04:00→23:09)
[2017-05-06] MEDS: NAPH,MB-DB/K PH,MBDB POWDER PACKET NGT SCH ×3 (06:37→23:08)
[2017-05-06] MEDS: LEVOTHYROXINE SODIUM 100 MCG VIAL IVPUSH SCH (06:37)
[2017-05-06] MEDS ORDERED: PT OWN MED DRAWER 7, Y5N ONE ×3 (07:05→14:26)
[2017-05-06 07:27] LABS: BASOPHIL 0.7 % (0-2.0); EOSINOPHIL 4.2 % (0-4.5); MCH 33.4 pg (25.7-33.7); MCHC 34.6 g/dl (32.0-36.0); MEAN CELL VOLUME 96.7 fl (80-96); MEAN PLT VOLUME 7.2 fl (7.5-11.1); PLATELET COUNT 157 K/MM3 (134-434); RDW 21.3 % (11.6-15.6)
[2017-05-06 08:01] LABS: ANION GAP 9 (8-16); CALCIUM 8.7 mg/dL (8.5-10.1); CO2 28 mmol/L (21-32); CREATININE 0.7 mg/dL (0.55-1.02); GLUCOSE,RANDOM 123 mg/dL (74-106); PHOSPHOROUS 3.6 mg/dL (2.5-4.9)
--- NOTE | 2017-05-06 10:18 | PN ---
Progress Note, CLAIM AGENT - Note Progress Note: Medical events noted. Now with NGT. Awake today, coughing on secretions, wet, gurgly vocal quality c/w aspiration. Nursing aware and provided suctioning. Pt says she is feeling "alright." Selected Entries 05/05/17 05/05/17 05/05/17 00:00 02:00 06:00 Temperature 98.2 F 98.0 F 98.5 F 05/05/17 05/05/17 05/06/17 15:22 18:15 02:00 Temperature 99.1 F 98.5 F 99.7 F H 05/06/17 06:00 Temperature 100.0 F H Laboratory Tests 05/06/17 06:25 WBC 3.0 L Monitor pulmonary status, maintain HOB elevated with head flexed with pillows to enable pt to swallow saliva. Mouth care.
[2017-05-06] MEDS: NYSTATIN 100,000 UNIT/GM TOPICAL CREAM 15 GM TUBE TP SCH ×2 (12:27→23:08)
--- NOTE | 2017-05-06 12:41 | PN ---
Progress Note, Physician Chief Complaint: Interactive but unable to obtain subjective - Current Medication List Current Medications: Active Medications Acetaminophen (Tylenol Suppository -) 650 mg NM Q4H PRN PRN Reason: FEVER OR PAIN Last Admin: 04/28/17 14:54 Dose: 650 mg Pantoprazole Sodium 80 mg/ (Sodium Chloride) 100 mls @ 10 mls/hr IVPB Q10H JOCELYNE PRN Reason: 8 MG/HR Last Admin: 05/06/17 04:00 Dose: 10 mls/hr Levothyroxine Sodium (Synthroid Injection -) 44 mcg IVPUSH DAILY@0700 [facility] Last Admin: 05/06/17 06:37 Dose: 44 mcg Metoprolol Tartrate (Lopressor Injection -) 2.5 mg IVPB Q6H-IV [facility] Last Admin: 05/06/17 09:48 Dose: 2.5 mg Nystatin (Mycostatin Cream -) 1 applic TP BID [facility] Last Admin: 05/06/17 12:27 Dose: 1 applic Potassium Phos/Sodium Phos (Phos-Nak Packet -) 1 packet NGT TID [facility] Last Admin: 05/06/17 06:37 Dose: 1 packet - Objective Vital Signs: Vital Signs Temperature 36.3 C L 05/06/17 09:00 Pulse Rate 87 05/06/17 12:07 Respiratory Rate 19 05/06/17 09:00 Blood Pressure 124/69 05/06/17 09:48 O2 Sat by Pulse Oximetry (%) 92 L 05/06/17 12:07 Constitutional: Yes: Well Nourished, No Distress, Calm Cardiovascular: Yes: Regular Rate and Rhythm. No: Gallop, Murmur, Rub Respiratory: Yes: Regular, Rhonchi. No: CTA Bilaterally, Rales, Wheezes Gastrointestinal: Yes: Normal Bowel Sounds, Soft. No: Distention, Tenderness Extremities: Yes: WNL Edema: No Labs: CBC, BMP 05/06/17 06:25 05/06/17 06:25 INR, PTT INR 1.20 (0.82-1.09) H 04/27/17 06:45 Problem List - Problems (1) UTI (urinary tract infection) Code(s): N39.0 - URINARY TRACT INFECTION, SITE NOT SPECIFIED (2) Dementia Code(s): F03.90 - UNSPECIFIED DEMENTIA WITHOUT BEHAVIORAL DISTURBANCE (3) Pancytopenia Code(s): D61.818 - OTHER PANCYTOPENIA (4) CHF (congestive heart failure) Code(s): I50.9 - HEART FAILURE, UNSPECIFIED Qualifiers: Congestive heart failure type: unspecified congestive heart failure type Congestive heart failure chronicity: chronic Qualified Code(s): I50.9 - Heart failure, unspecified; I50.9 - Heart failure, unspecified; I50.9 - Heart failure, unspecified; I50.9 - Heart failure, unspecified (5) HTN (hypertension) Code(s): I10 - ESSENTIAL (PRIMARY) HYPERTENSION (6) Hypothyroidism Code(s): E03.9 - HYPOTHYROIDISM, UNSPECIFIED (7) Aspiration pneumonia Code(s): J69.0 - PNEUMONITIS DUE TO INHALATION OF FOOD AND VOMIT (8) Anemia Code(s): D64.9 - ANEMIA, UNSPECIFIED Qualifiers: Anemia type: other cause Other causes of anemia: acute posthemorrhagic Qualified Code(s): D62 - Acute posthemorrhagic anemia; D62 - Acute posthemorrhagic anemia Assessment/Plan (1) Aspiration pneumonia Assessment/Plan: -ID following -s/p full course zosyn Code(s): N39.0 - URINARY TRACT INFECTION, SITE NOT SPECIFIED (2) Dementia Assessment/Plan: -patient appears at baseline -planning for PEG tube, holding aspirin Code(s): F03.90 - UNSPECIFIED DEMENTIA WITHOUT BEHAVIORAL DISTURBANCE (3) Pancytopenia Assessment/Plan: -monitor Code(s): D61.818 - OTHER PANCYTOPENIA (4) CHF (congestive heart failure) Assessment/Plan: -not in exacerbation Code(s): I50.9 - HEART FAILURE, UNSPECIFIED Qualifiers: Congestive heart failure type: unspecified congestive heart failure type Congestive heart failure chronicity: chronic Qualified Code(s): I50.9 - Heart failure, unspecified (5) HTN (hypertension) Assessment/Plan: -continue IV metoprolol Code(s): I10 - ESSENTIAL (PRIMARY) HYPERTENSION (6) Hypothyroidism Assessment/Plan: -continue IV synthroid Code(s): E03.9 - HYPOTHYROIDISM, UNSPECIFIED (7) FEN -now on tube feeds (8) Anemia -planning for EGD and PEG tube per GI Dispo -plan for discharge to SNF 24 hours after PEG tube replacement
--- NOTE | 2017-05-06 13:48 | PN ---
Progress Note, Physician History of Present Illness: clinically patient stable no new events awaiting for final decisions - Current Medication List Current Medications: Active Medications Acetaminophen (Tylenol Suppository -) 650 mg [place] Q4H PRN PRN Reason: FEVER OR PAIN Last Admin: 04/28/17 14:54 Dose: 650 mg Pantoprazole Sodium 80 mg/ (Sodium Chloride) 100 mls @ 10 mls/hr IVPB Q10H JOCELYNE PRN Reason: 8 MG/HR Last Admin: 05/06/17 04:00 Dose: 10 mls/hr Levothyroxine Sodium (Synthroid Injection -) 44 mcg IVPUSH DAILY@0700 [facility] Last Admin: 05/06/17 06:37 Dose: 44 mcg Metoprolol Tartrate (Lopressor Injection -) 2.5 mg IVPB Q6H-IV [facility] Last Admin: 05/06/17 09:48 Dose: 2.5 mg Nystatin (Mycostatin Cream -) 1 applic TP BID [facility] Last Admin: 05/06/17 12:27 Dose: 1 applic Potassium Phos/Sodium Phos (Phos-Nak Packet -) 1 packet NGT TID [facility] Last Admin: 05/06/17 06:37 Dose: 1 packet - Objective Vital Signs: Vital Signs Temperature 97.4 F L 05/06/17 09:00 Pulse Rate 87 05/06/17 12:07 Respiratory Rate 19 05/06/17 09:00 Blood Pressure 124/69 05/06/17 09:48 O2 Sat by Pulse Oximetry (%) 92 L 05/06/17 12:07 Constitutional: Yes: No Distress, Calm Cardiovascular: Yes: Regular Rate and Rhythm Respiratory: Yes: Regular, CTA Bilaterally Gastrointestinal: Yes: Normal Bowel Sounds, Soft, Other (ng tube in place) Neurological: Yes: Alert Labs: CBC, BMP 05/06/17 06:25 05/06/17 06:25 INR, PTT INR 1.20 (0.82-1.09) H 04/27/17 06:45 Assessment/Plan Problem List - Problems (1) UTI (urinary tract infection) Code(s): N39.0 - URINARY TRACT INFECTION, SITE NOT SPECIFIED (2) Dementia Code(s): F03.90 - UNSPECIFIED DEMENTIA WITHOUT BEHAVIORAL DISTURBANCE (3) Pancytopenia Code(s): D61.818 - OTHER PANCYTOPENIA (4) CHF (congestive heart failure) Code(s): I50.9 - HEART FAILURE, UNSPECIFIED Qualifiers: Congestive heart failure type: unspecified congestive heart failure type Congestive heart failure chronicity: chronic Qualified Code(s): I50.9 - Heart failure, unspecified (5) HTN (hypertension) Code(s): I10 - ESSENTIAL (PRIMARY) HYPERTENSION (6) Hypothyroidism Code(s): E03.9 - HYPOTHYROIDISM, UNSPECIFIED Aspiration pneumonia Code(s): J69.0 - PNEUMONITIS DUE TO INHALATION OF FOOD AND VOMIT plan continue current mgmt nutrition support aspiration precautions await for final family plan
--- NOTE | 2017-05-06 16:22 | PATH ---
Surgical Pathology Report Patient Name: GAYATRI SORENSEN [facility]. Rec. #: [id number] /Age/Gender: 1935 (Age: 82) / F Account: [id number] Location: [address] [place] [address] Taken: 05/05/2017 Received: 05/05/2017 Reported: 05/06/2017 Physicians: Kendra Villaseñor M.D. Specimen(s) Received PERIPHERAL BLOOD Clinical History New onset thrombocytopenia and neutropenia Final Diagnosis PERIPHERAL BLOOD: Flow cytometry performed and interpreted at [facility] in [place], [place] ([id number]) shows the following: Interpretation: The CD34+ myeloblasts are 0.2% of total events, see comment. Small (1% of total) clonal B-cell population with nonspecific immunophenotype detected within a polytypic background, see comment. There is no evidence of T-cell proliferative disorders or increased monocytic cells Comment: The slightly increased myeloblasts are a nonspecific finding, but raise the possibility of peripheral blood involvement by a myeloid neoplasm. Correlation with relevant clinical and laboratory data is essential. If clinically indicated and feasible, correlation with complete bone marrow evaluation (including flow cytometry immunophenotyping and cytogenetic studies) may be considered. The clonal B-cell population is of indeterminate significance. It may represent monoclonal B-lymphocytosis (MBL). Phenotype: The CD34+, CD117+, HLA-DR+ myeloblasts are 0.2% of total events. Granulocytes are 70% of total cells. Monocytes are 5% of total cells. There is no overt abnormal myeloid antigen expression. The T-cells (15% of total) show no reid T-cell antigenic deletion. The T-LGLs are 2.6% of total, the NK cells are 5.2% of total events. The B-cells are 2.5% of total events. A small (1% of total events) clonal (Robeline, dim) B-cell population with moderate CD19, and bright CD20 and FMC7 expression, negative for CD5, CD10, and bright CD11c, is noted within a polytypic background. FISH studies are pending, and a report will follow. Electronically Signed Oscar Ferreira M.D. Addendum Reported: 05/07/2017 Addendum Diagnosis Hematologic FISH Report performed and interpreted at [facility] in [place], [place] ([id number]) shows the following. INTERPRETATION: No evidence of deletion 5q or monosomy 5 is present. No evidence of deletion 7q or monosomy 7 is present. No evidence of trisomy 8 (+8) is present. No evidence of deletion 13q14 is present. No evidence of a rearrangement of 11q23. No evidence of a deletion of the p53 (17p13) locus. No evidence of deletion 20q12 is present. Comments: The study is negative for many of the most common recurrent genetic abnormalities in Myelodysplastic Syndrome. Oscar Ferreira M.D. Gross Description Received are 2 green top tubes of peripheral blood which are sent to [facility]. 05/05/201705/05/2017
--- NOTE | 2017-05-06 22:55 | PN ---
Progress Note (short form) - Note Progress Note: Patient seen and examined Denies any complaints AFVSS Cor: RSR, No murmurs, No gallops Lungs: Clear to P&A Abd: Soft, Normal bowel sounds, No organomegaly Ext:No significant edema Skin: No rashes, Integument intact Abnormal Lab Results 05/06/17 05/06/17 06:25 06:25 WBC 3.0 L RBC 2.59 L Hgb 8.6 L Hct 25.0 L MCV 96.7 H RDW 21.3 H MPV 7.2 L BUN 22 H Random Glucose 123 H Active Medications Generic Name Dose Route Start Last Admin Trade Name Freq PRN Reason Stop Dose Admin Acetaminophen 650 mg 04/14/17 10:51 04/28/17 14:54 Tylenol Suppository - [place] 650 mg Q4H PRN Administration FEVER OR PAIN Pantoprazole Sodium 80 mg/ 100 mls @ 10 mls/hr 04/29/17 11:30 05/06/17 23:09 Sodium Chloride IVPB Not Given Q10H JOCELYNE 8 MG/HR Levothyroxine Sodium 44 mcg 04/12/17 17:30 05/06/17 06:37 Synthroid Injection - IVPUSH 44 mcg DAILY@0700 JOCELYNE Administration Metoprolol Tartrate 2.5 mg 04/12/17 17:30 05/06/17 23:08 Lopressor Injection - IVPB 2.5 mg Q6H-IV JOCELYNE Administration Nystatin 1 applic 04/29/17 22:00 05/06/17 23:08 Mycostatin Cream - TP 1 applic BID JOCELYNE Administration Potassium Phos/Sodium Phos 1 packet 04/28/17 14:30 05/06/17 23:08 Phos-Nak Packet - NGT 1 packet TID JOCELYNE Administration A/P 82 year old female with PMH of LA s/p stent placement on ASA presenting with falls and and increasing memory loss and confusion over the past few months. Admitted with worsening functional status, fsilure to thrive,advanced dementia, ? aspiration pneumonia, s/p zosyn Pancytopenia--nl iron studies/B12/folate TSH--low on synthroid with mildly elevated fT4-----adjust dose of synthroid per PMD fatty liver on u/s. pancreatic echogenicity ? further w/u flow--0.2% blasts, clonal B cells ? nonspecific immunophenotype EGD/PEG per gI ongoing discusions regarding goals of care with family
[2017-05-07] MEDS: PANTOPRAZOLE SODIUM 80 MG in SODIUM CHLORIDE 100 ML IVPB SCH ×3 (03:40→16:26)
[2017-05-07] MEDS: METOPROLOL TARTRATE 5 MG/5 ML VIAL IVPB SCH ×4 (04:03→22:10)
[2017-05-07] MEDS ORDERED: PT OWN MED DRAWER 7, Y5N ONE ×2 (06:19→20:06)
[2017-05-07] MEDS: NAPH,MB-DB/K PH,MBDB POWDER PACKET NGT SCH ×3 (06:47→22:14)
[2017-05-07] MEDS: LEVOTHYROXINE SODIUM 100 MCG VIAL IVPUSH SCH (06:47)
[2017-05-07] MEDS: NYSTATIN 100,000 UNIT/GM TOPICAL CREAM 15 GM TUBE TP SCH ×2 (10:00→22:13)
--- NOTE | 2017-05-07 13:06 | PN ---
Progress Note, Physician History of Present Illness: says she dpes not feel that good much more awake and alert - Current Medication List Current Medications: Active Medications Acetaminophen (Tylenol Suppository -) 650 mg [place] Q4H PRN PRN Reason: FEVER OR PAIN Last Admin: 04/28/17 14:54 Dose: 650 mg Pantoprazole Sodium 80 mg/ (Sodium Chloride) 100 mls @ 10 mls/hr IVPB Q10H JOCELYNE PRN Reason: 8 MG/HR Last Admin: 05/07/17 10:37 Dose: Not Given Levothyroxine Sodium (Synthroid Injection -) 44 mcg IVPUSH DAILY@0700 [facility] Last Admin: 05/07/17 06:47 Dose: 44 mcg Metoprolol Tartrate (Lopressor Injection -) 2.5 mg IVPB Q6H-IV [facility] Last Admin: 05/07/17 10:04 Dose: 2.5 mg Nystatin (Mycostatin Cream -) 1 applic TP BID [facility] Last Admin: 05/07/17 10:00 Dose: 1 applic Potassium Phos/Sodium Phos (Phos-Nak Packet -) 1 packet NGT TID [facility] Last Admin: 05/07/17 06:47 Dose: 1 packet - Objective Vital Signs: Vital Signs Temperature 97.9 F 05/07/17 09:00 Pulse Rate 91 H 05/07/17 10:04 Respiratory Rate 20 05/07/17 09:00 Blood Pressure 127/70 05/07/17 10:04 O2 Sat by Pulse Oximetry (%) 94 L 05/06/17 21:00 Constitutional: Yes: No Distress, Calm Cardiovascular: Yes: Regular Rate and Rhythm Respiratory: Yes: Regular, CTA Bilaterally Gastrointestinal: Yes: Normal Bowel Sounds, Soft, Other (ng in place) Musculoskeletal: Yes: WNL Extremities: Yes: WNL Neurological: Yes: Alert Psychiatric: Yes: Alert Labs: CBC, BMP 05/06/17 06:25 05/06/17 06:25 INR, PTT INR 1.20 (0.82-1.09) H 04/27/17 06:45 Assessment/Plan Problem List - Problems (1) UTI (urinary tract infection) Code(s): N39.0 - URINARY TRACT INFECTION, SITE NOT SPECIFIED (2) Dementia Code(s): F03.90 - UNSPECIFIED DEMENTIA WITHOUT BEHAVIORAL DISTURBANCE (3) Pancytopenia Code(s): D61.818 - OTHER PANCYTOPENIA (4) CHF (congestive heart failure) Code(s): I50.9 - HEART FAILURE, UNSPECIFIED Qualifiers: Congestive heart failure type: unspecified congestive heart failure type Congestive heart failure chronicity: chronic Qualified Code(s): I50.9 - Heart failure, unspecified (5) HTN (hypertension) Code(s): I10 - ESSENTIAL (PRIMARY) HYPERTENSION (6) Hypothyroidism Code(s): E03.9 - HYPOTHYROIDISM, UNSPECIFIED Aspiration pneumonia Code(s): J69.0 - PNEUMONITIS DUE TO INHALATION OF FOOD AND VOMIT plan continue current mgmt nutrition support aspiration precautions await for final family plan await for plan for peg tube
--- NOTE | 2017-05-07 13:07 | PN ---
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 HOB elevated. Selected Entries 05/06/17 05/06/17 05/06/17 02:00 06:00 09:00 Breakfast Temperature 99.7 F H 100.0 F H 97.4 F L 05/06/17 05/06/17 05/06/17 15:35 18:00 22:00 Breakfast Temperature 98.2 F 99.3 F 99.0 F 05/07/17 05/07/17 05/07/17 06:00 09:00 11:55 Breakfast NPO Temperature 99.4 F 97.9 F Laboratory Tests 05/06/17 06:25 WBC 3.0 L High risk of aspiration persists with PO trials.Pending PEG insertion. Case reviewed with PMD.
--- NOTE | 2017-05-07 13:36 | PN ---
Progress Note, Physician Chief Complaint: Interactive but unable to obtain subjective - Current Medication List Current Medications: Active Medications Acetaminophen (Tylenol Suppository -) 650 mg [place] Q4H PRN PRN Reason: FEVER OR PAIN Last Admin: 04/28/17 14:54 Dose: 650 mg Pantoprazole Sodium 80 mg/ (Sodium Chloride) 100 mls @ 10 mls/hr IVPB Q10H JOCELYNE PRN Reason: 8 MG/HR Last Admin: 05/07/17 10:37 Dose: Not Given Levothyroxine Sodium (Synthroid Injection -) 44 mcg IVPUSH DAILY@0700 [facility] Last Admin: 05/07/17 06:47 Dose: 44 mcg Metoprolol Tartrate (Lopressor Injection -) 2.5 mg IVPB Q6H-IV [facility] Last Admin: 05/07/17 10:04 Dose: 2.5 mg Nystatin (Mycostatin Cream -) 1 applic TP BID [facility] Last Admin: 05/07/17 10:00 Dose: 1 applic Potassium Phos/Sodium Phos (Phos-Nak Packet -) 1 packet NGT TID [facility] Last Admin: 05/07/17 06:47 Dose: 1 packet - Objective Vital Signs: Vital Signs Temperature 36.6 C 05/07/17 09:00 Pulse Rate 91 H 05/07/17 10:04 Respiratory Rate 20 05/07/17 09:00 Blood Pressure 127/70 05/07/17 10:04 O2 Sat by Pulse Oximetry (%) 94 L 05/06/17 21:00 Constitutional: Yes: Well Nourished, No Distress, Calm Cardiovascular: Yes: Regular Rate and Rhythm. No: Gallop, Murmur, Rub Respiratory: Yes: Regular, Rhonchi. No: CTA Bilaterally, Rales, Wheezes Gastrointestinal: Yes: Normal Bowel Sounds, Soft. No: Distention, Tenderness Extremities: Yes: WNL Edema: No Labs: CBC, BMP 05/06/17 06:25 05/06/17 06:25 INR, PTT INR 1.20 (0.82-1.09) H 04/27/17 06:45 Problem List - Problems (1) UTI (urinary tract infection) Code(s): N39.0 - URINARY TRACT INFECTION, SITE NOT SPECIFIED (2) Dementia Code(s): F03.90 - UNSPECIFIED DEMENTIA WITHOUT BEHAVIORAL DISTURBANCE (3) Pancytopenia Code(s): D61.818 - OTHER PANCYTOPENIA (4) CHF (congestive heart failure) Code(s): I50.9 - HEART FAILURE, UNSPECIFIED Qualifiers: Congestive heart failure type: unspecified congestive heart failure type Congestive heart failure chronicity: chronic Qualified Code(s): I50.9 - Heart failure, unspecified; I50.9 - Heart failure, unspecified; I50.9 - Heart failure, unspecified; I50.9 - Heart failure, unspecified (5) HTN (hypertension) Code(s): I10 - ESSENTIAL (PRIMARY) HYPERTENSION (6) Hypothyroidism Code(s): E03.9 - HYPOTHYROIDISM, UNSPECIFIED (7) Aspiration pneumonia Code(s): J69.0 - PNEUMONITIS DUE TO INHALATION OF FOOD AND VOMIT (8) Anemia Code(s): D64.9 - ANEMIA, UNSPECIFIED Qualifiers: Anemia type: other cause Other causes of anemia: acute posthemorrhagic Qualified Code(s): D62 - Acute posthemorrhagic anemia; D62 - Acute posthemorrhagic anemia Assessment/Plan (1) Aspiration pneumonia Assessment/Plan: -ID following -s/p full course zosyn -will repeat x-ray today since with ros on exam Code(s): N39.0 - URINARY TRACT INFECTION, SITE NOT SPECIFIED (2) Dementia Assessment/Plan: -patient appears at baseline -planning for PEG tube, holding aspirin Code(s): F03.90 - UNSPECIFIED DEMENTIA WITHOUT BEHAVIORAL DISTURBANCE (3) Pancytopenia Assessment/Plan: -monitor Code(s): D61.818 - OTHER PANCYTOPENIA (4) CHF (congestive heart failure) Assessment/Plan: -not in exacerbation Code(s): I50.9 - HEART FAILURE, UNSPECIFIED Qualifiers: Congestive heart failure type: unspecified congestive heart failure type Congestive heart failure chronicity: chronic Qualified Code(s): I50.9 - Heart failure, unspecified (5) HTN (hypertension) Assessment/Plan: -continue IV metoprolol Code(s): I10 - ESSENTIAL (PRIMARY) HYPERTENSION (6) Hypothyroidism Assessment/Plan: -continue IV synthroid Code(s): E03.9 - HYPOTHYROIDISM, UNSPECIFIED (7) FEN -now on tube feeds (8) Anemia -planning for EGD and PEG tube per GI Dispo -plan for discharge to SNF 24 hours after PEG tube replacement
--- NOTE | 2017-05-07 16:00 | PN ---
Progress Note (short form) - Note Progress Note: Patient seen and examined Responds with monosyllables Confused Last Vital Signs Temp Pulse Resp BP Pulse Ox 98.6 F 93 H 20 138/71 98 05/07/17 14:44 05/07/17 14:44 05/07/17 14:44 05/07/17 14:44 05/07/17 11:00 HEENT: LES, EOM Intact Oropharynx: No thrush, No mucositis, feeding tube Cor: RSR, No murmurs, No gallops Lungs: Clear to P&A Abd: Soft, Normal bowel sounds, No organomegaly Ext:No significant edema, SCD Skin: No rashes, Integument intact CBC, BMP 05/06/17 06:25 05/06/17 06:25 Current Medications Generic Name Dose Route Start Last Admin Trade Name Freq PRN Reason Stop Dose Admin Acetaminophen 650 mg 04/14/17 10:51 04/28/17 14:54 Tylenol Suppository - [place] 650 mg Q4H PRN Administration FEVER OR PAIN Pantoprazole Sodium 80 mg/ 100 mls @ 10 mls/hr 04/29/17 11:30 05/07/17 10:37 Sodium Chloride IVPB Not Given Q10H JOCELYNE 8 MG/HR Levothyroxine Sodium 44 mcg 04/12/17 17:30 05/07/17 06:47 Synthroid Injection - IVPUSH 44 mcg DAILY@0700 J[facility]NE Administration Metoprolol Tartrate 2.5 mg 04/12/17 17:30 05/07/17 10:04 Lopressor Injection - IVPB 2.5 mg Q6H-IV [facility] Administration Nystatin 1 applic 04/29/17 22:00 05/07/17 10:00 Mycostatin Cream - TP 1 applic BID JOCELYNE Administration Potassium Phos/Sodium Phos 1 packet 04/28/17 14:30 05/07/17 14:11 Phos-Nak Packet - NGT 1 packet TID JOCELYNE Administration Impression: Anemia Leukopenia Feeding tube for failure to thrive S/P antibiotic therapy Plan: PEG ?? extent of evaluation of leukopenia- ongoing family issues and discussion.
[2017-05-08] MEDS: PANTOPRAZOLE SODIUM 80 MG in SODIUM CHLORIDE 100 ML IVPB SCH ×4 (02:16→18:07)
[2017-05-08] MEDS: METOPROLOL TARTRATE 5 MG/5 ML VIAL IVPB SCH ×4 (02:17→20:14)
[2017-05-08] MEDS: LEVOTHYROXINE SODIUM 100 MCG VIAL IVPUSH SCH (06:24)
[2017-05-08] MEDS: NAPH,MB-DB/K PH,MBDB POWDER PACKET NGT SCH ×3 (06:30→21:49)
[2017-05-08 08:42] LABS: ANION GAP 8 (8-16); CALCIUM 8.5 mg/dL (8.5-10.1); CO2 33 mmol/L (21-32); CREATININE 0.8 mg/dL (0.55-1.02); GLUCOSE,RANDOM 113 mg/dL (74-106); MAGNESIUM 2.2 mg/dL (1.8-2.4); PHOSPHOROUS 3.8 mg/dL (2.5-4.9)
[2017-05-08 09:01] LABS: MCH 32.9 pg (25.7-33.7); MCHC 33.8 g/dl (32.0-36.0); MEAN CELL VOLUME 97.6 fl (80-96); MEAN PLT VOLUME 6.8 fl (7.5-11.1); PLATELET COUNT 172 K/MM3 (134-434); RDW 21.5 % (11.6-15.6); WHITE BLOOD COUNT 2.9 K/mm3 (4.0-10.0)
[2017-05-08] MEDS: NYSTATIN 100,000 UNIT/GM TOPICAL CREAM 15 GM TUBE TP SCH ×2 (11:05→21:49)
[2017-05-08 12:30] LABS: PLATELET COMMENT2 NO CLOTTING DETECTED; PLATELET ESTIMATE ADEQUATE (NORMAL); TOTAL CELLS COUNTED 100
[2017-05-08 12:32] LABS: ANISOCYTOSIS 2+; HYPOCHROMIA 1+; MACROCYTOSIS 1+; MICROCYTOSIS 1+; POLYCHROMASIA 1+
--- NOTE | 2017-05-08 13:39 | PN ---
Progress Note, Physician Chief Complaint: I.D. progress note History of Present Illness: Pt seen and examined. Charts/labs reviewed, events noted. Pt is arousable, without acute distress, but weak. - Current Medication List Current Medications: Active Medications Acetaminophen (Tylenol Suppository -) 650 mg [place] Q4H PRN PRN Reason: FEVER OR PAIN Last Admin: 04/28/17 14:54 Dose: 650 mg Pantoprazole Sodium 80 mg/ (Sodium Chloride) 100 mls @ 10 mls/hr IVPB Q10H JOCELYNE PRN Reason: 8 MG/HR Last Admin: 05/08/17 06:24 Dose: Not Given Levothyroxine Sodium (Synthroid Injection -) 44 mcg IVPUSH DAILY@0700 [facility] Last Admin: 05/08/17 06:24 Dose: 44 mcg Metoprolol Tartrate (Lopressor Injection -) 2.5 mg IVPB Q6H-IV [facility] Last Admin: 05/08/17 11:05 Dose: 2.5 mg Nystatin (Mycostatin Cream -) 1 applic TP BID [facility] Last Admin: 05/08/17 11:05 Dose: 1 applic Potassium Phos/Sodium Phos (Phos-Nak Packet -) 1 packet NGT TID [facility] Last Admin: 05/08/17 06:30 Dose: 1 packet - Objective Vital Signs: Vital Signs Temperature 98.3 F 05/08/17 06:00 Pulse Rate 109 H 05/08/17 12:00 Respiratory Rate 18 05/08/17 12:00 Blood Pressure 136/80 05/08/17 12:00 O2 Sat by Pulse Oximetry (%) 97 05/07/17 21:00 Constitutional: Yes: No Distress, Thin. No: Well Nourished, Calm, Anxious, Ashen, Cachectic, Diaphoresis, Mild Distress, Moderate Distress, Severe Distress , Obese, Pallor, Poor Hygeine, Other Neck: Yes: Supple. No: WNL, Trachea Midline, Decreased ROM, Lymphadenopathy, Rigid, Tenderness, Thyromegaly, Other Cardiovascular: Yes: Regular Rate and Rhythm. No: WNL, Bradycardia, Tachycardia , Pulse Irregular, Bruit, JVD, Gallop, Murmur, Rub, S1, S2, S3, S4, Varicosities , Other Respiratory: Yes: Regular Gastrointestinal: Yes: Normal Bowel Sounds, Soft, Other (NGT feeding) Extremities: Yes: WNL Labs: CBC, BMP 05/08/17 08:45 05/08/17 06:00 INR, PTT INR 1.20 (0.82-1.09) H 04/27/17 06:45 - ....Imaging Chest X-ray: Report Reviewed (increased interstitial marking RUL) Problem List - Problems (1) Pancytopenia Code(s): D61.818 - OTHER PANCYTOPENIA (2) Fever Code(s): R50.9 - FEVER, UNSPECIFIED (3) UTI (urinary tract infection) Code(s): N39.0 - URINARY TRACT INFECTION, SITE NOT SPECIFIED (4) Altered mental status, unspecified Code(s): R41.82 - ALTERED MENTAL STATUS, UNSPECIFIED (5) Aspiration pneumonia Code(s): J69.0 - PNEUMONITIS DUE TO INHALATION OF FOOD AND VOMIT (6) CHF (congestive heart failure) Code(s): I50.9 - HEART FAILURE, UNSPECIFIED Qualifiers: Congestive heart failure type: unspecified congestive heart failure type Congestive heart failure chronicity: chronic Qualified Code(s): I50.9 - Heart failure, unspecified; I50.9 - Heart failure, unspecified; I50.9 - Heart failure, unspecified; I50.9 - Heart failure, unspecified Assessment/Plan Pt is afebrile, weak s/p course of Zosyn, monitor off antibiotics for now aspiration precautions possible peg placement, family involved continue supportive care
--- NOTE | 2017-05-08 20:46 | PN ---
Physical Exam: SUBJECTIVE: Patient seen and examined at bedside. OBJECTIVE: Vital Signs Period Temp Pulse Resp BP Sys/Damon Pulse Ox Last 24 Hr 98.3 F-99.4 F 87-117 16-22 135-164/74-92 97-97 GENERAL/NEURO: The patient is somnolent, moans to verbal stimuli, withdraws to physical stimuli. EYES: PERRL, sclera anicteric, conjunctiva clear. Right ptosis. LUNGS: Diffuse coarse crackles HEART: Regular rate and rhythm, S1, S2 ABDOMEN: Soft, nontender, nondistended, normoactive bowel sounds, no guarding, no rebound EXTREMITIES: 2+ pulses, warm, well-perfused, no edema. Laboratory Results - last 24 hr 05/08/17 05/08/17 05/08/17 06:00 06:00 08:45 WBC Cancelled 2.9 L Corrected WBC (auto) Cancelled RBC Cancelled 2.66 L Hgb Cancelled 8.8 L Hct Cancelled 26.0 L MCV Cancelled 97.6 H MCH Cancelled 32.9 MCHC Cancelled 33.8 RDW Cancelled 21.5 H Plt Count Cancelled 172 MPV Cancelled 6.8 L Total Counted 100 Neutrophils % Cancelled No Result Required. Neutrophils % (Manual) 57 D Lymphocytes % Cancelled No Result Required. Lymphocytes % (Manual) 36 D Monocytes % Cancelled Monocytes % (Manual) 4 Eosinophils % Cancelled Eosinophils % (Manual) 3 Basophils % Cancelled Hypochromia 1+ Platelet Estimate Cancelled Adequate Platelet Comment Cancelled No clotting detected RBC Morphology Cancelled Y Polychromasia 1+ Anisocytosis 2+ Microcytosis 1+ Macrocytosis 1+ Sodium 138 Potassium 4.6 Chloride 97 L Carbon Dioxide 33 H Anion Gap 8 BUN 22 H Creatinine 0.8 Random Glucose 113 H Calcium 8.5 Phosphorus 3.8 Magnesium 2.2 Active Medications Generic Name Dose Route Start Last Admin Trade Name Freq PRN Reason Stop Dose Admin Acetaminophen 650 mg 04/14/17 10:51 04/28/17 14:54 Tylenol Suppository - NC 650 mg Q4H PRN Administration FEVER OR PAIN Pantoprazole Sodium 80 mg/ 100 mls @ 10 mls/hr 04/29/17 11:30 05/08/17 18:07 Sodium Chloride IVPB 10 mls/hr Q10H JOCELYNE Administration 8 MG/HR Levothyroxine Sodium 44 mcg 04/12/17 17:30 05/08/17 06:24 Synthroid Injection - IVPUSH 44 mcg DAILY@0700 JOCELYNE Administration Metoprolol Tartrate 2.5 mg 04/12/17 17:30 05/08/17 20:14 Lopressor Injection - IVPB 2.5 mg Q6H-IV JOCELYNE Administration Nystatin 1 applic 04/29/17 22:00 05/08/17 11:05 Mycostatin Cream - TP 1 applic BID JOCELYNE Administration Potassium Phos/Sodium Phos 1 packet 04/28/17 14:30 05/08/17 15:17 Phos-Nak Packet - NGT 1 packet TID JOCELYNE Administration ASSESSMENT/PLAN (1) Aspiration pneumonia Assessment/Plan: -afebrile -s/p full course zosyn -continue to observe off antibiotics Code(s): N39.0 - URINARY TRACT INFECTION, SITE NOT SPECIFIED (2) Dementia Assessment/Plan: -patient appears at baseline -planning for PEG tube, holding aspirin Code(s): F03.90 - UNSPECIFIED DEMENTIA WITHOUT BEHAVIORAL DISTURBANCE (3) Pancytopenia Assessment/Plan: -monitor -heme following Code(s): D61.818 - OTHER PANCYTOPENIA (4) CHF (congestive heart failure) Assessment/Plan: --diffuse coarse crackles --05/07 CXR shows increased interstitial markings --satting 97% on NC Code(s): I50.9 - HEART FAILURE, UNSPECIFIED Qualifiers: Congestive heart failure type: unspecified congestive heart failure type Congestive heart failure chronicity: chronic Qualified Code(s): I50.9 - Heart failure, unspecified (5) HTN (hypertension) Assessment/Plan: -continue IV metoprolol Code(s): I10 - ESSENTIAL (PRIMARY) HYPERTENSION (6) Hypothyroidism Assessment/Plan: -continue IV synthroid Code(s): E03.9 - HYPOTHYROIDISM, UNSPECIFIED (7) FEN -now on tube feeds (8) Anemia -planning for EGD and PEG tube per GI Dispo -plan for discharge to SNF 24 hours after PEG tube replacement Visit type - Emergency Visit Emergency Visit: Yes ED Registration Date: 04/01/17 Care time: The patient presented to the Emergency Department on the above date and was hospitalized for further evaluation of their emergent condition. - New Patient This patient is new to me today: Yes Date on this admission: 05/08/17 - Critical Care Critical Care patient: No
[2017-05-09] MEDS ORDERED: PT OWN MED DRAWER 7, Y5N ONE (00:45)
[2017-05-09] MEDS: METOPROLOL TARTRATE 5 MG/5 ML VIAL IVPB SCH ×4 (02:02→21:07)
[2017-05-09] MEDS: PANTOPRAZOLE SODIUM 80 MG in SODIUM CHLORIDE 100 ML IVPB SCH ×5 (02:02→22:44)
[2017-05-09] MEDS: NAPH,MB-DB/K PH,MBDB POWDER PACKET NGT SCH ×3 (06:26→21:08)
[2017-05-09] MEDS: LEVOTHYROXINE SODIUM 100 MCG VIAL IVPUSH SCH (06:26)
[2017-05-09] MEDS: NYSTATIN 100,000 UNIT/GM TOPICAL CREAM 15 GM TUBE TP SCH ×2 (09:47→21:09)
--- NOTE | 2017-05-09 11:23 | PN ---
Physical Exam: SUBJECTIVE: Patient seen and examined. Appears comfortable at rest. OBJECTIVE: Tolerating Jevity feeds For PEG tube placement as per GI Vital Signs Period Temp Pulse Resp BP Sys/Damon Pulse Ox Last 24 Hr 98.5 F-99.4 F 89-110 16-22 135-162/75-100 100 GENERAL: The patient is awake, alert, in no acute distress. HEAD: Normal with no signs of trauma. EYES: PERRL, extraocular movements intact, sclera anicteric, conjunctiva clear. No ptosis. ENT: NG tube, left nare, Jevity 1.5 NECK: Trachea midline, full range of motion, supple. LUNGS: Anterior lung sound with diminished breath sounds, no wheezing, no accessory muscle use HEART: Regular rate and rhythm, S1, S2 without murmur, rub or gallop. ABDOMEN: Soft, nontender, nondistended, normoactive bowel sounds, no guarding EXTREMITIES: 2+ pulses, warm, well-perfused, no edema. PSYCH: Calm, withdrawn Laboratory Results - last 24 hr 05/08/17 08:45 WBC 2.9 L RBC 2.66 L Hgb 8.8 L Hct 26.0 L MCV 97.6 H MCH 32.9 MCHC 33.8 RDW 21.5 H Plt Count 172 MPV 6.8 L Total Counted 100 Neutrophils % (Manual) 57 D Lymphocytes % (Manual) 36 D Monocytes % (Manual) 4 Eosinophils % (Manual) 3 Hypochromia 1+ Platelet Estimate Adequate Platelet Comment No clotting detected RBC Morphology Y Polychromasia 1+ Anisocytosis 2+ Microcytosis 1+ Macrocytosis 1+ Active Medications Generic Name Dose Route Start Last Admin Trade Name Everq PRN Reason Stop Dose Admin Acetaminophen 650 mg 04/14/17 10:51 04/28/17 14:54 Tylenol Suppository - ND 650 mg Q4H PRN Administration FEVER OR PAIN Pantoprazole Sodium 80 mg/ 100 mls @ 10 mls/hr 04/29/17 11:30 05/09/17 11:11 Sodium Chloride IVPB Not Given Q10H JOCELYNE 8 MG/HR Levothyroxine Sodium 44 mcg 04/12/17 17:30 05/09/17 06:26 Synthroid Injection - IVPUSH 44 mcg DAILY@0700 JOCELYNE Administration Metoprolol Tartrate 2.5 mg 04/12/17 17:30 05/09/17 09:47 Lopressor Injection - IVPB 2.5 mg Q6H-IV JOCELYNE Administration Nystatin 1 applic 04/29/17 22:00 05/09/17 09:47 Mycostatin Cream - TP 1 applic BID JOCELYNE Administration Potassium Phos/Sodium Phos 1 packet 04/28/17 14:30 05/09/17 06:26 Phos-Nak Packet - NGT 1 packet TID JOCELYNE Administration ASSESSMENT/PLAN: Patient is an 82 year old female with a significant past medical history of hypothyroidism, HTN, CAD (s/p stent placement 2 years ago), former smoker (quit 2 mo ago) presents to ER from PCP's office with frequent falls and AMS. Pulmonary: Aspiration pneumonia, completed Zosyn A/P: Observe off antibiotics, monitor, labs, vitals Aspiration precautions during tube feeds Planning for PEG tube, holding aspirin Psyche Dementia, chronic A/P: At baseline Hematology Pancytopenia/Anemia A/P: monitor, heme following Labs in a.m. Cardiology: Hypertension, chronic A/P: On Lopressor 2.5mg q6 iv Monitor BP CHF, congestive heart failure A/P: Monitor respiratory status, currently her lungs are diminished on supplemental oxygen 2 liter as needed F.E.N. Fluids: On tube feeds Electrolytes: monitor bmp Nutrition: Jevity tube feeds through NGT Prophyalxis: GI: Protonix DVT: SCDs Dispo: Plan for peg tube as per GI, then d/c to SNF. Discharge planning. full code. Visit type - Emergency Visit Emergency Visit: Yes ED Registration Date: 04/01/17 Care time: The patient presented to the Emergency Department on the above date and was hospitalized for further evaluation of their emergent condition. - New Patient This patient is new to me today: Yes Date on this admission: 05/09/17 - Critical Care Critical Care patient: No - Discharge Referral Referred to [facility] Med P.C.: No
--- NOTE | 2017-05-09 13:28 | PN ---
Progress Note, Physician Chief Complaint: I.D. Progress note History of Present Illness: Pt seen and examined. Remains weak but responsive. No new events noted. - Current Medication List Current Medications: Active Medications Acetaminophen (Tylenol Suppository -) 650 mg [place] Q4H PRN PRN Reason: FEVER OR PAIN Last Admin: 04/28/17 14:54 Dose: 650 mg Pantoprazole Sodium 80 mg/ (Sodium Chloride) 100 mls @ 10 mls/hr IVPB Q10H JOCELYNE PRN Reason: 8 MG/HR Last Admin: 05/09/17 12:37 Dose: 10 mls/hr Levothyroxine Sodium (Synthroid Injection -) 44 mcg IVPUSH DAILY@0700 [facility] Last Admin: 05/09/17 06:26 Dose: 44 mcg Metoprolol Tartrate (Lopressor Injection -) 2.5 mg IVPB Q6H-IV JOCELYNE Last Admin: 05/09/17 09:47 Dose: 2.5 mg Nystatin (Mycostatin Cream -) 1 applic TP BID [facility] Last Admin: 05/09/17 09:47 Dose: 1 applic Potassium Phos/Sodium Phos (Phos-Nak Packet -) 1 packet NGT TID [facility] Last Admin: 05/09/17 06:26 Dose: 1 packet - Objective Vital Signs: Vital Signs Temperature 98.6 F 05/09/17 06:06 Pulse Rate 98 H 05/09/17 09:47 Respiratory Rate 20 05/09/17 06:06 Blood Pressure 162/86 05/09/17 09:47 O2 Sat by Pulse Oximetry (%) 100 05/08/17 22:00 Constitutional: Yes: No Distress Neck: Yes: Supple Cardiovascular: Yes: Pulse Irregular Respiratory: Yes: Other (mild crackles) Gastrointestinal: Yes: Normal Bowel Sounds, Soft, Other (NGT in place) Edema: No Neurological: Yes: Alert, Weakness Psychiatric: Yes: Alert Labs: CBC, BMP 05/08/17 08:45 05/08/17 06:00 INR, PTT INR 1.20 (0.82-1.09) H 04/27/17 06:45 Problem List - Problems (1) Pancytopenia Code(s): D61.818 - OTHER PANCYTOPENIA (2) Fever Code(s): R50.9 - FEVER, UNSPECIFIED (3) UTI (urinary tract infection) Code(s): N39.0 - URINARY TRACT INFECTION, SITE NOT SPECIFIED (4) Altered mental status, unspecified Code(s): R41.82 - ALTERED MENTAL STATUS, UNSPECIFIED (5) Aspiration pneumonia Code(s): J69.0 - PNEUMONITIS DUE TO INHALATION OF FOOD AND VOMIT (6) CHF (congestive heart failure) Code(s): I50.9 - HEART FAILURE, UNSPECIFIED Qualifiers: Congestive heart failure type: unspecified congestive heart failure type Congestive heart failure chronicity: chronic Qualified Code(s): I50.9 - Heart failure, unspecified; I50.9 - Heart failure, unspecified; I50.9 - Heart failure, unspecified; I50.9 - Heart failure, unspecified Assessment/Plan Pt s/p course of antibiotics Remains relatively stable but weak possible peg placement continue supportive care
[2017-05-10] MEDS: METOPROLOL TARTRATE 5 MG/5 ML VIAL IVPB SCH ×4 (03:31→22:00)
[2017-05-10] MEDS: NAPH,MB-DB/K PH,MBDB POWDER PACKET NGT SCH ×3 (06:26→22:01)
[2017-05-10] MEDS: LEVOTHYROXINE SODIUM 100 MCG VIAL IVPUSH SCH (06:27)
[2017-05-10 07:22] LABS: BASOPHIL 0.5 % (0-2.0); EOSINOPHIL 4.6 % (0-4.5); MCH 33.2 pg (25.7-33.7); MCHC 34.2 g/dl (32.0-36.0); NEUTROPHILS 55.8 % (42.8-82.8); PLATELET COUNT 180 K/MM3 (134-434); RDW 20.9 % (11.6-15.6); WHITE BLOOD COUNT 2.9 K/mm3 (4.0-10.0)
[2017-05-10 07:53] LABS: ALBUMIN 2.4 g/dl (3.4-5.0); ANION GAP 7 (8-16); CALCIUM 8.6 mg/dL (8.5-10.1); CO2 33 mmol/L (21-32); GLUCOSE,RANDOM 119 mg/dL (74-106); SGOT/AST 27 U/L (15-37); SGPT/ALT 68 U/L (12-78)
[2017-05-10 07:58] LABS: ALK PHOS 111 U/L (45-117); BILIRUBIN,TOTAL 0.5 mg/dL (0.2-1.0); CREATININE 0.9 mg/dL (0.55-1.02); TOT PROT 5.8 g/dl (6.4-8.2)
[2017-05-10] MEDS: PANTOPRAZOLE SODIUM 80 MG in SODIUM CHLORIDE 100 ML IVPB SCH ×3 (10:31→22:01)
[2017-05-10] MEDS: NYSTATIN 100,000 UNIT/GM TOPICAL CREAM 15 GM TUBE TP SCH ×2 (10:36→22:01)
--- NOTE | 2017-05-10 13:11 | PN ---
Progress Note, Physician Chief Complaint: Interactive but unable to obtain subjective - Current Medication List Current Medications: Active Medications Acetaminophen (Tylenol Suppository -) 650 mg [place] Q4H PRN PRN Reason: FEVER OR PAIN Last Admin: 04/28/17 14:54 Dose: 650 mg Pantoprazole Sodium 80 mg/ (Sodium Chloride) 100 mls @ 10 mls/hr IVPB Q10H JOCELYNE PRN Reason: 8 MG/HR Last Admin: 05/10/17 10:31 Dose: 10 mls/hr Levothyroxine Sodium (Synthroid Injection -) 44 mcg IVPUSH DAILY@0700 [facility] Last Admin: 05/10/17 06:27 Dose: 44 mcg Metoprolol Tartrate (Lopressor Injection -) 2.5 mg IVPB Q6H-IV [facility] Last Admin: 05/10/17 09:26 Dose: 2.5 mg Nystatin (Mycostatin Cream -) 1 applic TP BID [facility] Last Admin: 05/10/17 10:36 Dose: 1 applic Potassium Phos/Sodium Phos (Phos-Nak Packet -) 1 packet NGT TID [facility] Last Admin: 05/10/17 06:26 Dose: 1 packet - Objective Vital Signs: Vital Signs Temperature 36.6 C 05/10/17 08:45 Pulse Rate 92 H 05/10/17 09:26 Respiratory Rate 20 05/10/17 08:45 Blood Pressure 144/71 05/10/17 09:26 O2 Sat by Pulse Oximetry (%) 99 05/10/17 11:00 Constitutional: Yes: No Distress, Calm, Thin Cardiovascular: Yes: Regular Rate and Rhythm. No: Gallop, Murmur, Rub Respiratory: Yes: Regular, On Nasal O2, Rhonchi. No: CTA Bilaterally, Rales, Wheezes Gastrointestinal: Yes: Normal Bowel Sounds, Soft. No: Distention, Tenderness Extremities: Yes: WNL Edema: No Labs: CBC, BMP 05/10/17 06:30 05/10/17 06:30 INR, PTT INR 1.20 (0.82-1.09) H 04/27/17 06:45 Problem List - Problems (1) UTI (urinary tract infection) Code(s): N39.0 - URINARY TRACT INFECTION, SITE NOT SPECIFIED (2) Dementia Code(s): F03.90 - UNSPECIFIED DEMENTIA WITHOUT BEHAVIORAL DISTURBANCE (3) Pancytopenia Code(s): D61.818 - OTHER PANCYTOPENIA (4) CHF (congestive heart failure) Code(s): I50.9 - HEART FAILURE, UNSPECIFIED Qualifiers: Congestive heart failure type: unspecified congestive heart failure type Congestive heart failure chronicity: chronic Qualified Code(s): I50.9 - Heart failure, unspecified; I50.9 - Heart failure, unspecified; I50.9 - Heart failure, unspecified; I50.9 - Heart failure, unspecified (5) HTN (hypertension) Code(s): I10 - ESSENTIAL (PRIMARY) HYPERTENSION (6) Hypothyroidism Code(s): E03.9 - HYPOTHYROIDISM, UNSPECIFIED (7) Aspiration pneumonia Code(s): J69.0 - PNEUMONITIS DUE TO INHALATION OF FOOD AND VOMIT (8) Anemia Code(s): D64.9 - ANEMIA, UNSPECIFIED Qualifiers: Anemia type: other cause Other causes of anemia: acute posthemorrhagic Qualified Code(s): D62 - Acute posthemorrhagic anemia; D62 - Acute posthemorrhagic anemia Assessment/Plan (1) Aspiration pneumonia Assessment/Plan: -ID following -s/p full course zosyn Code(s): N39.0 - URINARY TRACT INFECTION, SITE NOT SPECIFIED (2) Dementia Assessment/Plan: -patient appears at baseline -planning for PEG tube, holding aspirin Code(s): F03.90 - UNSPECIFIED DEMENTIA WITHOUT BEHAVIORAL DISTURBANCE (3) Pancytopenia Assessment/Plan: -monitor Code(s): D61.818 - OTHER PANCYTOPENIA (4) CHF (congestive heart failure) Assessment/Plan: -not in exacerbation Code(s): I50.9 - HEART FAILURE, UNSPECIFIED Qualifiers: Congestive heart failure type: unspecified congestive heart failure type Congestive heart failure chronicity: chronic Qualified Code(s): I50.9 - Heart failure, unspecified (5) HTN (hypertension) Assessment/Plan: -continue IV metoprolol Code(s): I10 - ESSENTIAL (PRIMARY) HYPERTENSION (6) Hypothyroidism Assessment/Plan: -continue IV synthroid Code(s): E03.9 - HYPOTHYROIDISM, UNSPECIFIED (7) FEN -now on tube feeds -call placed to GI about PEG tube, message left and awaiting call back (8) Anemia -stable Dispo -plan for discharge to SNF 24 hours after PEG tube replacement
--- NOTE | 2017-05-10 13:45 | PN ---
Progress Note, Physician History of Present Illness: stable awake and alert tolerating feeding - Current Medication List Current Medications: Active Medications Acetaminophen (Tylenol Suppository -) 650 mg [place] Q4H PRN PRN Reason: FEVER OR PAIN Last Admin: 04/28/17 14:54 Dose: 650 mg Pantoprazole Sodium 80 mg/ (Sodium Chloride) 100 mls @ 10 mls/hr IVPB Q10H JOCELYNE PRN Reason: 8 MG/HR Last Admin: 05/10/17 10:31 Dose: 10 mls/hr Levothyroxine Sodium (Synthroid Injection -) 44 mcg IVPUSH DAILY@0700 [facility] Last Admin: 05/10/17 06:27 Dose: 44 mcg Metoprolol Tartrate (Lopressor Injection -) 2.5 mg IVPB Q6H-IV [facility] Last Admin: 05/10/17 09:26 Dose: 2.5 mg Nystatin (Mycostatin Cream -) 1 applic TP BID [facility] Last Admin: 05/10/17 10:36 Dose: 1 applic Potassium Phos/Sodium Phos (Phos-Nak Packet -) 1 packet NGT TID [facility] Last Admin: 05/10/17 06:26 Dose: 1 packet - Objective Vital Signs: Vital Signs Temperature 97.9 F 05/10/17 08:45 Pulse Rate 92 H 05/10/17 09:26 Respiratory Rate 20 05/10/17 08:45 Blood Pressure 144/71 05/10/17 09:26 O2 Sat by Pulse Oximetry (%) 99 05/10/17 11:00 Constitutional: Yes: No Distress, Calm Cardiovascular: Yes: Regular Rate and Rhythm Respiratory: Yes: Regular, CTA Bilaterally Gastrointestinal: Yes: Normal Bowel Sounds, Soft, Other (ng tube in place) Musculoskeletal: Yes: WNL Extremities: Yes: WNL Neurological: Yes: Alert, Other Psychiatric: Yes: Other Labs: CBC, BMP 05/10/17 06:30 05/10/17 06:30 INR, PTT INR 1.20 (0.82-1.09) H 04/27/17 06:45 Assessment/Plan Problem List - Problems (1) UTI (urinary tract infection) Code(s): N39.0 - URINARY TRACT INFECTION, SITE NOT SPECIFIED (2) Dementia Code(s): F03.90 - UNSPECIFIED DEMENTIA WITHOUT BEHAVIORAL DISTURBANCE (3) Pancytopenia Code(s): D61.818 - OTHER PANCYTOPENIA (4) CHF (congestive heart failure) Code(s): I50.9 - HEART FAILURE, UNSPECIFIED Qualifiers: Congestive heart failure type: unspecified congestive heart failure type Congestive heart failure chronicity: chronic Qualified Code(s): I50.9 - Heart failure, unspecified (5) HTN (hypertension) Code(s): I10 - ESSENTIAL (PRIMARY) HYPERTENSION (6) Hypothyroidism Code(s): E03.9 - HYPOTHYROIDISM, UNSPECIFIED Aspiration pneumonia Code(s): J69.0 - PNEUMONITIS DUE TO INHALATION OF FOOD AND VOMIT lactic acidosis plan continue nutrition will continue to monitor off of abx patient stable no new isues
[2017-05-10] MEDS ORDERED: PT OWN MED DRAWER 7, Y5N ONE (18:39)
[2017-05-11] MEDS: METOPROLOL TARTRATE 5 MG/5 ML VIAL IVPB SCH ×3 (02:49→15:33)
[2017-05-11] MEDS ORDERED: PT OWN MED DRAWER 7, Y5N ONE ×2 (06:24→09:32)
[2017-05-11] MEDS: PANTOPRAZOLE SODIUM 80 MG in SODIUM CHLORIDE 100 ML IVPB SCH ×3 (06:34→13:30)
[2017-05-11] MEDS: NAPH,MB-DB/K PH,MBDB POWDER PACKET NGT SCH ×2 (06:34→14:51)
[2017-05-11] MEDS: LEVOTHYROXINE SODIUM 100 MCG VIAL IVPUSH SCH (06:34)
[2017-05-11 08:37] LABS: BASOPHIL 0.6 % (0-2.0); EOSINOPHIL 3.2 % (0-4.5); MCH 33.7 pg (25.7-33.7); MCHC 34.4 g/dl (32.0-36.0); MEAN CELL VOLUME 97.8 fl (80-96); MEAN PLT VOLUME 7.5 fl (7.5-11.1); NEUTROPHILS 64.4 % (42.8-82.8); PLATELET COUNT 210 K/MM3 (134-434); WHITE BLOOD COUNT 3.6 K/mm3 (4.0-10.0)
[2017-05-11 08:54] LABS: ANION GAP 7 (8-16); CALCIUM 8.5 mg/dL (8.5-10.1); CO2 32 mmol/L (21-32); GLUCOSE,RANDOM 120 mg/dL (74-106)
[2017-05-11 08:56] LABS: CREATININE 0.9 mg/dL (0.55-1.02); PHOSPHOROUS 4.1 mg/dL (2.5-4.9)
[2017-05-11 08:59] LABS: MAGNESIUM 2.3 mg/dL (1.8-2.4)
--- NOTE | 2017-05-11 09:56 | PN ---
Progress Note, Physician History of Present Illness: awake alert stable chest sounds congested no secretions though - Current Medication List Current Medications: Active Medications Acetaminophen (Tylenol Suppository -) 650 mg [place] Q4H PRN PRN Reason: FEVER OR PAIN Last Admin: 04/28/17 14:54 Dose: 650 mg Pantoprazole Sodium 80 mg/ (Sodium Chloride) 100 mls @ 10 mls/hr IVPB Q10H JOCELYNE PRN Reason: 8 MG/HR Last Admin: 05/11/17 09:35 Dose: 10 mls/hr Levothyroxine Sodium (Synthroid Injection -) 44 mcg IVPUSH DAILY@0700 [facility] Last Admin: 05/11/17 06:34 Dose: 44 mcg Metoprolol Tartrate (Lopressor Injection -) 2.5 mg IVPB Q6H-IV [facility] Last Admin: 05/11/17 09:43 Dose: 2.5 mg Nystatin (Mycostatin Cream -) 1 applic TP BID [facility] Last Admin: 05/10/17 22:01 Dose: 1 applic Potassium Phos/Sodium Phos (Phos-Nak Packet -) 1 packet NGT TID [facility] Last Admin: 05/11/17 06:34 Dose: 1 packet - Objective Vital Signs: Vital Signs Temperature 98.7 F 05/11/17 06:00 Pulse Rate 116 H 05/11/17 09:43 Respiratory Rate 20 05/11/17 09:39 Blood Pressure 143/83 05/11/17 09:43 O2 Sat by Pulse Oximetry (%) 95 05/10/17 21:00 Constitutional: Yes: No Distress, Calm Cardiovascular: Yes: Regular Rate and Rhythm Respiratory: Yes: Regular, Rhonchi, Other Gastrointestinal: Yes: Normal Bowel Sounds, Soft, Other (ng in place) Musculoskeletal: Yes: WNL Extremities: Yes: WNL Neurological: Yes: Alert Psychiatric: Yes: Alert Labs: CBC, BMP 05/11/17 06:50 05/11/17 06:50 INR, PTT INR 1.20 (0.82-1.09) H 04/27/17 06:45 Assessment/Plan Problem List - Problems (1) UTI (urinary tract infection) Code(s): N39.0 - URINARY TRACT INFECTION, SITE NOT SPECIFIED (2) Dementia Code(s): F03.90 - UNSPECIFIED DEMENTIA WITHOUT BEHAVIORAL DISTURBANCE (3) Pancytopenia Code(s): D61.818 - OTHER PANCYTOPENIA (4) CHF (congestive heart failure) Code(s): I50.9 - HEART FAILURE, UNSPECIFIED Qualifiers: Congestive heart failure type: unspecified congestive heart failure type Congestive heart failure chronicity: chronic Qualified Code(s): I50.9 - Heart failure, unspecified (5) HTN (hypertension) Code(s): I10 - ESSENTIAL (PRIMARY) HYPERTENSION (6) Hypothyroidism Code(s): E03.9 - HYPOTHYROIDISM, UNSPECIFIED Aspiration pneumonia Code(s): J69.0 - PNEUMONITIS DUE TO INHALATION OF FOOD AND VOMIT lactic acidosis plan continue nutrition will continue to monitor off of abx if increasing congestion might hjave to start it rest as per primary team
--- NOTE | 2017-05-11 12:07 | PN ---
Progress Note, Physician Chief Complaint: Patient turned to side and vomiting tube feed like substance - Current Medication List Current Medications: Active Medications Acetaminophen (Tylenol Suppository -) 650 mg [place] Q4H PRN PRN Reason: FEVER OR PAIN Last Admin: 04/28/17 14:54 Dose: 650 mg Pantoprazole Sodium 80 mg/ (Sodium Chloride) 100 mls @ 10 mls/hr IVPB Q10H JOCELYNE PRN Reason: 8 MG/HR Last Admin: 05/11/17 09:35 Dose: 10 mls/hr Levothyroxine Sodium (Synthroid Injection -) 44 mcg IVPUSH DAILY@0700 [facility] Last Admin: 05/11/17 06:34 Dose: 44 mcg Metoprolol Tartrate (Lopressor Injection -) 2.5 mg IVPB Q6H-IV [facility] Last Admin: 05/11/17 09:43 Dose: 2.5 mg Nystatin (Mycostatin Cream -) 1 applic TP BID [facility] Last Admin: 05/10/17 22:01 Dose: 1 applic Potassium Phos/Sodium Phos (Phos-Nak Packet -) 1 packet NGT TID [facility] Last Admin: 05/11/17 06:34 Dose: 1 packet - Objective Vital Signs: Vital Signs Temperature 36.8 C 05/11/17 10:39 Pulse Rate 116 H 05/11/17 09:43 Respiratory Rate 20 05/11/17 09:39 Blood Pressure 143/83 05/11/17 09:43 O2 Sat by Pulse Oximetry (%) 95 05/11/17 11:13 Constitutional: Yes: No Distress, Calm, Thin Cardiovascular: Yes: Regular Rate and Rhythm. No: Gallop, Murmur, Rub Respiratory: Yes: Regular, Rhonchi. No: CTA Bilaterally, Rales, Wheezes Gastrointestinal: Yes: Normal Bowel Sounds, Soft, Vomiting. No: Distention, Tenderness Extremities: Yes: WNL Edema: No Labs: CBC, BMP 05/11/17 06:50 05/11/17 06:50 INR, PTT INR 1.20 (0.82-1.09) H 04/27/17 06:45 Problem List - Problems (1) UTI (urinary tract infection) Code(s): N39.0 - URINARY TRACT INFECTION, SITE NOT SPECIFIED (2) Dementia Code(s): F03.90 - UNSPECIFIED DEMENTIA WITHOUT BEHAVIORAL DISTURBANCE (3) Pancytopenia Code(s): D61.818 - OTHER PANCYTOPENIA (4) CHF (congestive heart failure) Code(s): I50.9 - HEART FAILURE, UNSPECIFIED Qualifiers: Congestive heart failure type: unspecified congestive heart failure type Congestive heart failure chronicity: chronic Qualified Code(s): I50.9 - Heart failure, unspecified; I50.9 - Heart failure, unspecified; I50.9 - Heart failure, unspecified; I50.9 - Heart failure, unspecified (5) HTN (hypertension) Code(s): I10 - ESSENTIAL (PRIMARY) HYPERTENSION (6) Hypothyroidism Code(s): E03.9 - HYPOTHYROIDISM, UNSPECIFIED (7) Aspiration pneumonia Code(s): J69.0 - PNEUMONITIS DUE TO INHALATION OF FOOD AND VOMIT (8) Anemia Code(s): D64.9 - ANEMIA, UNSPECIFIED Qualifiers: Anemia type: other cause Other causes of anemia: acute posthemorrhagic Qualified Code(s): D62 - Acute posthemorrhagic anemia; D62 - Acute posthemorrhagic anemia Assessment/Plan (1) Aspiration pneumonia Assessment/Plan: -ID following -s/p full course zosyn\ -patient now vomiting but turned to the side -monitor for fevers, leukocytosis, and worsening lung exam -may need further antibiotics Code(s): N39.0 - URINARY TRACT INFECTION, SITE NOT SPECIFIED (2) Dementia Assessment/Plan: -patient appears at baseline -planning for PEG tube, holding aspirin Code(s): F03.90 - UNSPECIFIED DEMENTIA WITHOUT BEHAVIORAL DISTURBANCE (3) Pancytopenia Assessment/Plan: -monitor Code(s): D61.818 - OTHER PANCYTOPENIA (4) CHF (congestive heart failure) Assessment/Plan: -not in exacerbation Code(s): I50.9 - HEART FAILURE, UNSPECIFIED Qualifiers: Congestive heart failure type: unspecified congestive heart failure type Congestive heart failure chronicity: chronic Qualified Code(s): I50.9 - Heart failure, unspecified (5) HTN (hypertension) Assessment/Plan: -continue IV metoprolol Code(s): I10 - ESSENTIAL (PRIMARY) HYPERTENSION (6) Hypothyroidism Assessment/Plan: -continue IV synthroid Code(s): E03.9 - HYPOTHYROIDISM, UNSPECIFIED (7) FEN -now on tube feeds, will hold secondary to emesis -call placed, awaiting call back -reconsulted GI (8) Anemia -stable
[2017-05-11] MEDS: NYSTATIN 100,000 UNIT/GM TOPICAL CREAM 15 GM TUBE TP SCH (14:51)
--- NOTE | 2017-05-11 20:27 | PN ---
GI Progress Note Subjective: GI NOte: Asked to re--evaluate Saadia for a PEG. Her condition has been progressively deteriorating. The cause of her leukopenia and anemia remains in known. Peripheral blood study cannot exclude a myeloid neoplasm. She is awake with labored breathing and sonorous breath sounds. I cannot engage her in conversation. The neurologic change on 04/28 is noted. She is prone to aspiration and I suspect that she is aspirating her feedings. - Objective Vital Signs: Vital Signs Temperature 99.6 F 05/11/17 19:00 Pulse Rate 108 H 05/11/17 19:00 Respiratory Rate 18 05/11/17 19:00 Blood Pressure 157/81 05/11/17 19:00 O2 Sat by Pulse Oximetry (%) 95 05/11/17 11:13 Current Medications Generic Name Dose Route Start Last Admin Trade Name Freq PRN Reason Stop Dose Admin Acetaminophen 650 mg 04/14/17 10:51 04/28/17 14:54 Tylenol Suppository - MO 650 mg Q4H PRN Administration FEVER OR PAIN Pantoprazole Sodium 80 mg/ 100 mls @ 10 mls/hr 04/29/17 11:30 05/11/17 13:30 Sodium Chloride IVPB Not Given Q10H JOCELYNE 8 MG/HR Levothyroxine Sodium 44 mcg 04/12/17 17:30 05/11/17 06:34 Synthroid Injection - IVPUSH 44 mcg DAILY@0700 JOCELYNE Administration Metoprolol Tartrate 2.5 mg 04/12/17 17:30 05/11/17 15:33 Lopressor Injection - IVPB 2.5 mg Q6H-IV JOCELYNE Administration Nystatin 1 applic 04/29/17 22:00 05/11/17 14:51 Mycostatin Cream - TP 1 applic BID JOCELYNE Administration Potassium Phos/Sodium Phos 1 packet 04/28/17 14:30 05/11/17 14:51 Phos-Nak Packet - NGT 1 packet TID JOCELYNE Administration CBC,CMP WBC 3.6 K/mm3 (4.0-10.0) L 05/11/17 06:50 Corrected WBC (auto) Cancelled 04/18/17 07:00 RBC 2.80 M/mm3 (3.60-5.2) L 05/11/17 06:50 Hgb 9.4 GM/dL (10.7-15.3) L 05/11/17 06:50 Hct 27.4 % (32.4-45.2) L 05/11/17 06:50 MCV 97.8 fl (80-96) H 05/11/17 06:50 MCH 33.7 pg (25.7-33.7) 05/11/17 06:50 MCHC 34.4 g/dl (32.0-36.0) 05/11/17 06:50 RDW 21.0 % (11.6-15.6) H 05/11/17 06:50 Plt Count 210 K/MM3 (134-434) 05/11/17 06:50 MPV 7.5 fl (7.5-11.1) 05/11/17 06:50 Total Counted 100 05/08/17 08:45 Neutrophils % 64.4 % (42.8-82.8) 05/11/17 06:50 Neutrophils % (Manual) 57 % (42.8-82.8) D 05/08/17 08:45 Lymphocytes % 26.2 % (8-40) D 05/11/17 06:50 Lymphocytes % (Manual) 36 % (8-40) D 05/08/17 08:45 Monocytes % 5.6 % (3.8-10.2) 05/11/17 06:50 Monocytes % (Manual) 4 % (3.8-10.2) 05/08/17 08:45 Eosinophils % 3.2 % (0-4.5) 05/11/17 06:50 Eosinophils % (Manual) 3 % (0-4.5) 05/08/17 08:45 Basophils % 0.6 % (0-2.0) 05/11/17 06:50 Hypochromia 1+ 05/08/17 08:45 Platelet Estimate Adequate (NORMAL) 05/08/17 08:45 Platelet Comment No clumping noted 05/08/17 08:45 Platelet Comment No clotting detected 05/08/17 08:45 RBC Morphology Y 05/08/17 08:45 Polychromasia 1+ 05/08/17 08:45 Anisocytosis 2+ 05/08/17 08:45 Microcytosis 1+ 05/08/17 08:45 Macrocytosis 1+ 05/08/17 08:45 Sodium 137 mmol/L (136-145) 05/11/17 06:50 Potassium 4.8 mmol/L (3.5-5.1) 05/11/17 06:50 Chloride 98 mmol/L (98-107) 05/11/17 06:50 Carbon Dioxide 32 mmol/L (21-32) 05/11/17 06:50 Anion Gap 7 (8-16) L 05/11/17 06:50 BUN 24 mg/dL (7-18) H 05/11/17 06:50 Creatinine 0.9 mg/dL (0.55-1.02) 05/11/17 06:50 Creat Clearance w eGFR > 60 (>60) 05/10/17 06:30 POC Glucometer 126 UNITS (()) 04/12/17 11:12 Random Glucose 120 mg/dL (74-106) H 05/11/17 06:50 Calcium 8.5 mg/dL (8.5-10.1) 05/11/17 06:50 Phosphorus 4.1 mg/dL (2.5-4.9) 05/11/17 06:50 Magnesium 2.3 mg/dL (1.8-2.4) 05/11/17 06:50 Iron 71 ug/dL (27-139) 04/28/17 12:50 TIBC 227 ug/dL (250-450) L 04/28/17 12:50 Iron Saturation 31 % (15-55) 04/28/17 12:50 Transferrin 183 mg/dL (200-370) L 04/28/17 12:50 Ferritin 81.310 ng/ml (6.9-282.5) 04/28/17 12:50 Total Bilirubin 0.5 mg/dL (0.2-1.0) D 05/10/17 06:30 AST 27 U/L (15-37) D 05/10/17 06:30 ALT 68 U/L (12-78) 05/10/17 06:30 Alkaline Phosphatase 111 U/L (45-117) 05/10/17 06:30 Prot Electrophoresis Y 05/03/17 06:50 Serum Total Protein Y 05/03/17 06:50 Total Protein 5.8 g/dl (6.4-8.2) L 05/10/17 06:30 Albumin 2.4 g/dl (3.4-5.0) L 05/10/17 06:30 Globulin No Result Required. 05/03/17 06:50 Albumin/Globulin Ratio Y 05/03/17 06:50 Nzwcl-3-Gqfunvlnx Y 05/03/17 06:50 Vcqfq-7-Irdtsuidy Y 05/03/17 06:50 Beta Globulins Y 05/03/17 06:50 Gamma Globulins Y 05/03/17 06:50 Vitamin B12 2320 pg/ml (180-914) H 04/28/17 12:50 Serum Folate 34 ng/ml (3.1-17.5) H D 04/28/17 12:50 TSH 0.16 uIU/ml (0.358-3.74) L 04/01/17 14:56 Free T4 1.68 ng/dl (0.76-1.46) H 04/02/17 06:15 Free T3 2.4 pg/ml (2.0-4.4) 04/02/17 06:15 Constitutional: Moderate Distress Cardiovascular: Yes: Regular Rate and Rhythm, Tachycardia Respiratory: Yes: Accessory Muscle Use, Rhonchi (bilateral in upper lung guzman) , Tachypnea ...Auscultate: Yes: Hypoactive Bowel Sounds ...Palpate: Yes: Soft, Other (nontender) Labs: CBC, BMP 05/11/17 06:50 05/11/17 06:50 INR, PTT INR 1.20 (0.82-1.09) H 04/27/17 06:45 Assessment/Plan Saadia is a high risk candidate for PEG insertion which entails anesthesia and airway compromise by scope passage. In her present state I do not believe she would survive the procedure. If her conditions improves would ideally consider a surgical jejunostomy tube which would deliver food distal enough to avoid repeated aspiration of large volume gastric contents. If her condition continues to make this not feasible then feeding tube insertion by IR which avoids the respiratory compromises of the gastroscope and anesthesia.
[2017-05-12] MEDS ORDERED: FUROSEMIDE 40 MG/4 ML INJECTABLE VIAL IVPUSH ONE (00:17)
[2017-05-12] MEDS ORDERED: FUROSEMIDE 40 MG/4 ML INJECTABLE VIAL ONE (00:18)
[2017-05-12] MEDS ORDERED: PROPOFOL 200 MG/20 ML VIAL IVPUSH ONE (00:26)
[2017-05-12] MEDS ORDERED: ROCURONIUM BROMIDE 50 MG/5 ML VIAL IV ONE (00:28)
[2017-05-12] MEDS ORDERED: MIDAZOLAM HCL 2 MG/2 ML SINGLE DOSE VIAL IVPUSH ONE (00:28)
[2017-05-12] MEDS ORDERED: PHENYLEPHRINE HCL 10 MG/1 ML SINGLE DOSE VIAL ONE ×4 (00:29→12:12)
[2017-05-12] MEDS ORDERED: PROPOFOL 100 ML IVPB SCH (00:30)
[2017-05-12] MEDS ORDERED: PHENYLEPHRINE HCL 20,000 MCG in SODIUM CHLORIDE 248 ML IVPB SCH ×2 (00:30→00:32)
[2017-05-12] MEDS ORDERED: VANCOMYCIN 750 MG in DEXTROSE 5%-WATER - 250 ML IVPB ONE (00:34)
[2017-05-12] MEDS ORDERED: CEFEPIME 2 GM/100 ML BAG PRE-DOCKED IVPB ONE (00:35)
[2017-05-12] MEDS: METOPROLOL TARTRATE 5 MG/5 ML VIAL IVPB SCH ×3 (00:37→03:05)
[2017-05-12] MEDS: NAPH,MB-DB/K PH,MBDB POWDER PACKET NGT SCH (00:37)
[2017-05-12] MEDS: NYSTATIN 100,000 UNIT/GM TOPICAL CREAM 15 GM TUBE TP SCH ×3 (00:37→23:01)
[2017-05-12] MEDS: PANTOPRAZOLE SODIUM 80 MG in SODIUM CHLORIDE 100 ML IVPB SCH (00:38)
[2017-05-12] MEDS ORDERED: ADENOSINE 6 MG/2 ML VIAL IVPUSH ONE ×3 (00:38→00:51)
[2017-05-12] MEDS ORDERED: METOPROLOL TARTRATE 5 MG/5 ML VIAL IVPUSH ONE (00:55)
--- NOTE | 2017-05-12 00:56 | PROC ---
Intubation - Intubation Reason for Intubation: Respiratory Insufficiency, Respiratory Failure, Ventilatory Failure Time of Intubation: 12:35 Intubation Method: orotracheal Blade used: Mac (3.0) Tube Size (cm): 8.0 Tube position @ lip (cm): 22 (at the gum) Tube position confirmed by: Direct visualization, CO2 detector, Breath sounds Breath Sounds after Intubation: equal Post Intubation Xray: (pending) Remarks: Meds: Propofol 40mg x1, versed 2mg, rocuronium 50mg. Grade 1 view
--- NOTE | 2017-05-12 00:57 | CONSULT ---
Consult Consult Specialty:: Pulm/CCM Reason for Consultation:: respiratory failure, shock, SVT - History of Present Illness Chief Complaint: resp failure History of Present Illness: This is a 82 yo woman PMH: dementia, hypothyroid, HTN, active tobacco, CAD s/p sent, CHF presenting to ICU after RELIGIOUS EDUCATION COORDINATOR for hypoxic respiratory failure, SVT (HR 180s) and shock. Briefly, patient initially presented for frequent falls and altered mental status with overall physical and cognitive decline over the last 6 months prior to admission. CT head: w/ central atrophy and mild microvascular ischemic gliosis. Labs significant for hypothyroid, leukopenia and pyuria, she was started on ceftriaxone. Neurology was consulted. Endocrine consulted. Mental status had some improvement while on the floor. Speech and swallow eval done c/ f aspiration. ABX were switch to zosyn given increased secretions and c/f pneumonia. Plans made for potential PEG placement. Patient continued to have waxing and waning mental status. Patient had notable right facial droop and NCHCT done w/o acute pathology. She completed a course of ABX. GI was consulted for c/f GIB. Heme also consulted given anemia and leukopenia and w/u sent: flow- -0.2% blasts, clonal B cells questionable nonspecific immunophenotype. On day of ICU admission patient had witnessed aspiration event. RELIGIOUS EDUCATION COORDINATOR was called in PM for hypoxia and tachycardia. Patient transferred to ICU for hypoxic respiratory failure. Patient intubated. ABG 7.3/54/242 (ACVC: 20/400/100 +5). Patient given adenosine for SVT w/ underlying sinus rhythm. Patient continued to have RVR and was given lopressor 5mg x1 w/ HR improved to 120s. Family called but were unavailable. - History Source History Provided By: Medical Record Limitations to Obtaining History: Intubated - Past Medical History Cardio/Vascular: Yes: CHF, HTN Pulmonary: Yes: COPD Endocrine: Yes: Hypothyroidism - Alcohol/Substance Use Hx Alcohol Use: No - Smoking History Smoking history: Former smoker Have you smoked in the past 12 months: Yes Aproximately how many cigarettes per day: 20 If you are a former smoker, when did you quit?: 01/2017 Home Medications - Allergies Allergies/Adverse Reactions: Allergies Allergy/AdvReac Type Severity Reaction Status Date / Time pineapple [Pineapple] Allergy Severe Swelling Verified 04/01/17 13:45 adhesive tape Allergy Mild Rash Verified 04/01/17 13:45 - Home Medications Home Medications: Ambulatory Orders Aspirin Coated [Ecotrin -] 81 mg PO DAILY #30 tablet.ec 01/03/14 Carvedilol [Coreg -] 3.125 mg PO BID #60 tablet 01/03/14 Levothyroxine [Synthroid -] 100 mcg PO DAILY@0700 #30 tablet 01/03/14 Lisinopril [Prinivil] 2.5 mg PO DAILY #30 tablet 01/03/14 Atorvastatin Ca [Lipitor] 10 mg PO HS 04/01/17 Clopidogrel Bisulfate [Plavix -] 75 mg PO DAILY 04/01/17 Folic Acid 1 mg PO DAILY 04/01/17 Family Disease History - Family Disease History Family History: Unable to Obtain Review of Systems Unable to obtain ROS, reason: intubated Physical Exam Vital Signs: Vital Signs Temperature 99.6 F 05/11/17 19:00 Pulse Rate 166 H 05/12/17 00:00 Respiratory Rate 20 05/12/17 00:45 Blood Pressure 140/93 05/12/17 00:00 O2 Sat by Pulse Oximetry (%) 56 L 05/11/17 21:00 Current Medications Acetaminophen (Tylenol Suppository -) 650 mg PA Q4H PRN PRN Reason: FEVER OR PAIN Last Admin: 04/28/17 14:54 Dose: 650 mg Pantoprazole Sodium 80 mg/ (Sodium Chloride) 100 mls @ 10 mls/hr IVPB Q10H JOCELYNE PRN Reason: 8 MG/HR Last Admin: 05/12/17 00:38 Dose: Not Given Propofol (Diprivan -) 100 mls @ 1.551 mls/hr IVPB TITR JOCELYNE; 5 MCG/KG/MIN PRN Reason: Protocol Last Admin: 05/12/17 01:23 Dose: 1.551 mls/hr Metronidazole (Flagyl 500mg Premixed Ivpb -) 100 mls @ 100 mls/hr IVPB Q8H-IV JOCELYNE Last Admin: 05/12/17 01:27 Dose: 100 mls/hr Phenylephrine HCl 20,000 mcg/ (Sodium Chloride) 250 mls @ 75 mls/hr IVPB TITR JOCELYNE; 100 MCG/MIN PRN Reason: Protocol Last Admin: 05/12/17 01:24 Dose: 75 mls/hr Levothyroxine Sodium (Synthroid Injection -) 44 mcg IVPUSH DAILY@0700 [facility] Last Admin: 05/11/17 06:34 Dose: 44 mcg Metoprolol Tartrate (Lopressor Injection -) 2.5 mg IVPB Q6H-IV [facility] Last Admin: 05/12/17 00:37 Dose: Not Given Nystatin (Mycostatin Cream -) 1 applic TP BID [facility] Last Admin: 05/12/17 00:37 Dose: Not Given Potassium Phos/Sodium Phos (Phos-Nak Packet -) 1 packet NGT TID [facility] Last Admin: 05/12/17 00:37 Dose: Not Given Constitutional: Yes: Severe Distress Eyes: Yes: PERRL Cardiovascular: Yes: Tachycardia, S1, S2 Respiratory: Yes: Intubated, Mechanically Ventilated, Rhonchi Gastrointestinal: Yes: Normal Bowel Sounds, Soft, Hyperactive Bowel Sounds Edema: No Integumentary: Yes: Other (Excoriated skin perineal area) Neurological: Yes: Unresponsive Labs: CBCD WBC 3.6 K/mm3 (4.0-10.0) L 05/11/17 06:50 RBC 2.80 M/mm3 (3.60-5.2) L 05/11/17 06:50 Hgb 9.4 GM/dL (10.7-15.3) L 05/11/17 06:50 Hct 27.4 % (32.4-45.2) L 05/11/17 06:50 MCV 97.8 fl (80-96) H 05/11/17 06:50 MCHC 34.4 g/dl (32.0-36.0) 05/11/17 06:50 RDW 21.0 % (11.6-15.6) H 05/11/17 06:50 Plt Count 210 K/MM3 (134-434) 05/11/17 06:50 MPV 7.5 fl (7.5-11.1) 05/11/17 06:50 CMP Sodium 137 mmol/L (136-145) 05/11/17 06:50 Potassium 4.8 mmol/L (3.5-5.1) 05/11/17 06:50 Chloride 98 mmol/L (98-107) 05/11/17 06:50 Carbon Dioxide 32 mmol/L (21-32) 05/11/17 06:50 Anion Gap 7 (8-16) L 05/11/17 06:50 BUN 24 mg/dL (7-18) H 05/11/17 06:50 Creatinine 0.9 mg/dL (0.55-1.02) 05/11/17 06:50 Creat Clearance w eGFR > 60 (>60) 05/10/17 06:30 Random Glucose 120 mg/dL (74-106) H 05/11/17 06:50 Calcium 8.5 mg/dL (8.5-10.1) 05/11/17 06:50 Total Bilirubin 0.5 mg/dL (0.2-1.0) D 05/10/17 06:30 AST 27 U/L (15-37) D 05/10/17 06:30 ALT 68 U/L (12-78) 05/10/17 06:30 Alkaline Phosphatase 111 U/L (45-117) 05/10/17 06:30 Total Protein 5.8 g/dl (6.4-8.2) L 05/10/17 06:30 Albumin 2.4 g/dl (3.4-5.0) L 05/10/17 06:30 ABG Results ABG pH 7.30 (7.35-7.45) L 05/12/17 01:14 ABG pCO2 at Pt Temp 54.1 mmHg (35-45) H 05/12/17 01:14 ABG pO2 at Pt Temp 272.0 mmHg (68-100) H* 05/12/17 01:14 ABG HCO3 25.6 meq/L (22-26) 05/12/17 01:14 ABG O2 Sat (Measured) 100.0 % (90-98.9) H* 05/12/17 01:14 ABG O2 Content 15.3 % vol (15-22) 05/12/17 01:14 ABG Base Excess -0.7 meq/l (-2-2) 05/12/17 01:14 Microbiology 04/10/17 13:25 Blood - Peripheral Venous Blood Culture - Final NO GROWTH AFTER 5 DAYS INCUBATION 04/10/17 13:25 Blood - Peripheral Venous Blood Culture - Final NO GROWTH AFTER 5 DAYS INCUBATION 04/11/17 17:35 Urine - Urine - Catheterized Urine Culture - Final NO GROWTH OBTAINED 04/03/17 16:30 Blood - Peripheral Venous Blood Culture - Final NO GROWTH AFTER 5 DAYS INCUBATION 04/04/17 08:00 Urine - Urine Clean Catch Urine Culture - Final Diphtheroid/Corynebacterium 04/01/17 18:15 Urine - Urine Clean Catch Urine Culture - Final Alpha Hemolytic Streptococcus Imaging - Results Chest X-ray: Report Reviewed, Image Reviewed (ETT 1 cm above soraida. large lung volumes w/ flattened diaphrams.) Problem List - Problems (1) Altered mental status, unspecified Code(s): R41.82 - ALTERED MENTAL STATUS, UNSPECIFIED (2) Aspiration pneumonia Code(s): J69.0 - PNEUMONITIS DUE TO INHALATION OF FOOD AND VOMIT (3) Dementia Code(s): F03.90 - UNSPECIFIED DEMENTIA WITHOUT BEHAVIORAL DISTURBANCE (4) Acute respiratory failure with hypoxia and hypercapnia Code(s): J96.01 - ACUTE RESPIRATORY FAILURE WITH HYPOXIA J96.02 - ACUTE RESPIRATORY FAILURE WITH HYPERCAPNIA (5) Pancytopenia Code(s): D61.818 - OTHER PANCYTOPENIA (6) CHF (congestive heart failure) Code(s): I50.9 - HEART FAILURE, UNSPECIFIED Qualifiers: Congestive heart failure type: unspecified congestive heart failure type Congestive heart failure chronicity: chronic Qualified Code(s): I50.9 - Heart failure, unspecified; I50.9 - Heart failure, unspecified; I50.9 - Heart failure, unspecified; I50.9 - Heart failure, unspecified (7) Hypothyroidism Code(s): E03.9 - HYPOTHYROIDISM, UNSPECIFIED (8) Paroxysmal SVT (supraventricular tachycardia) Code(s): I47.1 - SUPRAVENTRICULAR TACHYCARDIA (9) Shock Code(s): R57.9 - SHOCK, UNSPECIFIED Assessment/Plan a/p: 82 yo woman MMP: long history of tobacco use likely emphysema given CXR, CAD, CHF, hypothyroid with failure to thrive c/b dysphagia and witnessed aspiration event now with hypoxic respiratory failure, SVT, septic shock most likely pulmonic (HCAP) vs urinary in nature w/ diarrhea c/f c. diff given recent ABX course. c/c/b anemia and leukopenia c/f underlying oncologic process -mechanical ventilation -hob >30 deg, oral care -daily breathing trials once stable -sedation w/ propofol w/ daily interruption of sedation -ABX for HCAP: cefepime/vanco for HCAP coverage and flagyl for anaerobic coverage given c/f aspiration and empiric c. diff coverage given copious diarrhea and recent zosyn course -reid culture: sputum, blood, urine and stool -renal dose medications -roper cath -pressors for BP support, will likely need CVC but unable to reach family for consent -Echo/EKG -trend troponins -trend lactate -hold anti-HTN meds -DVT/GI prophylaxis -poor overall prognosis given frail state and failure to thrive, cont goals of care discussions with family Shai FANGP Pulm/CCM CCT: 60m
--- NOTE | 2017-05-12 01:03 | RAPID ---
Physical Examination Vital Signs: Vital Signs Temperature 99.6 F 05/11/17 19:00 Pulse Rate 166 H 05/12/17 00:00 Respiratory Rate 20 05/12/17 00:45 Blood Pressure 140/93 05/12/17 00:00 O2 Sat by Pulse Oximetry (%) 95 05/11/17 11:13 Findings/Remarks: Called for pt. being hypoxic upon arrival pt. in respiratory distress pt. unable to speak 02 sat 75 % on NRB Physical: Vital Signs Period Temp Pulse Resp BP Sys/Damon Pulse Ox Last 24 Hr 98.2 F-99.6 F 107-166 18-26 139-157/81-93 56-98 GEN: Unable to speak on 100% NRB CARD: RRR S1, S2 RESP: Coarse breath sounds all guzman ABD: Soft, NTD EXT: - C/C/E 1.) Acute Hypoxic Resp. Failure - Stat Intubation/Abg/CXR - Transferred to ICU 2.) Sepsis due to pneumonia - S/P full coarse of Zoysn - Vanco/Cefepime - Amezcua cx - LA 3.) Diarrhea - RO C. Diff - C. Diff T &A, Stool Cx - Flagyl 4.) SVT - S/P Adenosine - Metoprolol 5 IV - EKG - ECHO if not recently done - TROP Accepted to ICU by Gui [employer] CC Time: 40 minutes Labs: CBC, BMP 05/11/17 06:50 05/11/17 06:50
--- NOTE | 2017-05-12 01:13 | HOSP ---
Subjective - Review of Symptoms Events since last encounter: 82yo F with PMH of asp pna, chf, htn. Rapid Response called at 12:13am for acute respiratory distress. O2 sat 75% on 100% non-rebreather. Upon exam, pt having significant difficulty breathing, could not speak, using accessory muscles for breathing. Pt also had large loose stool. Decision was made to intubate. Pt transferred to the ICU. Pt's family called at 12:25am, message left. Stat abg and CXR ordered. Lasix 40mg IVpush given. Pt's son called back to ICU at 12:30am and spoke with Dr. Heredia. Pt intubated at 12:35am. Pt went into SVT (HR 170-180's) at 12:37am. Adenosine 6mg IVpush at 12:38am. Adenosine 12mg IVpush at 12:40am. Metoprolol Tartrate 5mg IVpush at 12:42am. Stat EKG, troponin, cmp, mg, phos, lactic acid ordered. Pt's SVT broke (HR 120s, BP 90/60). Stool sample for c-diff sent. Pt now satting 99%, RR 20, BP 136/66, HR 126, temp 102.9F. Tylenol 1g IVPB given for fever. Echo ordered. Flagyl, Cefepime, Vancomycin ordered. Stat blood cultures, UA, Urine cultures, sputum cultures, stool culture, FOBT, O &P ordered. Physical Examination Vital Signs: Vital Signs - 8 hr 05/11/17 05/11/17 05/12/17 19:00 21:00 00:00 Temperature 99.6 F Pulse Rate 108 H 166 H Respiratory 18 26 H Rate Blood Pressure 157/81 140/93 O2 Sat by Pulse 56 L Oximetry (%) 05/12/17 00:45 Temperature Pulse Rate Respiratory 20 Rate Blood Pressure O2 Sat by Pulse Oximetry (%) Constitutional: Yes: Well Nourished, Severe Distress Eyes: Yes: Conjunctiva Clear. No: Sclera Icterus HENT: Yes: Atraumatic, Normocephalic. No: Drooling Neck: Yes: Trachea Midline Cardiovascular: Yes: Tachycardia, S1, S2 Respiratory: Yes: Accessory Muscle Use, Rhonchi (course, diffuse, irving) Gastrointestinal: Yes: Soft. No: Distention Edema: No Integumentary: No: Bruising, Erythema Labs: CBC, BMP 05/11/17 06:50 05/11/17 06:50 Hospitalist Encounter Assessment: 82yo F in acute respiratory failure. Intubated and sedated. Went into SVT, broken with Adenosine x 2 and Metoprolol Tartrate IVpush. 1) acute hypoxic respiratory failure - stat intubation/sedation - f/u stat abg, cxr - tranferred to ICU 2) sepsis 2/2 asp pna - fever, tachypnea, pna - s/p full course of Zosyn - Vancomycin/Cefepime ordered - f/u reid cultures - f/u lactic acid 3) diarrhea - r/o c-diff, f/u c-diff - f/u stool cultures - Flagyl ordered 4) SVT - Adenosine x 2 - Metoprolol 5mg IVpush - f/u stat EKG - f/u echo - f/u trop Will sign-out to Primary Team in the morning. Visit type - Emergency Visit Emergency Visit: Yes ED Registration Date: 04/01/17 Care time: The patient presented to the Emergency Department on the above date and was hospitalized for further evaluation of their emergent condition. - New Patient This patient is new to me today: Yes Date on this admission: 05/12/17 - Critical Care Critical Care patient: Yes Total Critical Care Time (in minutes): 60 Critical Care Statement: The care of this patient involved high complexity decision making to prevent further life threatening deterioration of the patient 's condition and/or to evaluate & treat vital organ system(s) failure or risk of failure.
[2017-05-12 01:34] LABS: ARTERIAL BLOOD GAS BASE EXCESS -0.7 meq/l (-2-2); ARTERIAL BLOOD GAS HCO3 25.6 meq/L (22-26)
[2017-05-12] MEDS ORDERED: ACETAMINOPHEN 1000 MG/100 ML VIAL (NON FORMULARY) IVPB ONE (01:34)
[2017-05-12 01:35] LABS: ALLENS TEST POSITIVE; ART PUNCT SITE LEFT RADIAL; LPM/O2% 100%; MECH. VENT. YES; PT. ON O2? YES; TYPE OF O2 MECH VENT; VENT RATE 20; VT/PRESS 400
[2017-05-12] MEDS ORDERED: ACETAMINOPHEN 650 MG SUPP.RECT PR PRN (01:59)
[2017-05-12] MEDS ORDERED: METRONIDAZOLE 500 MG PREMIXED 100 ML IVPB SCH (02:00)
[2017-05-12 02:04] LABS: INR 1.11 (0.82-1.09); PROTHROMBIN TIME (PATIENT) 12.5 SEC (9.98-11.88)
[2017-05-12 02:06] LABS: ACTIVATED PTT 29.7 SECONDS (26.9-34.4)
[2017-05-12] MEDS: PHENYLEPHRINE HCL 20,000 MCG in SODIUM CHLORIDE 248 ML IVPB SCH ×3 (02:10→10:30)
[2017-05-12] MEDS: METRONIDAZOLE 500 MG PREMIXED 100 ML IVPB SCH ×3 (02:10→18:24)
[2017-05-12] MEDS: PROPOFOL 100 ML IVPB SCH ×2 (02:10→16:41)
[2017-05-12 02:17] LABS: BASOPHIL 0.2 % (0-2.0); EOSINOPHIL 0.4 % (0-4.5); MCH 33.7 pg (25.7-33.7); MCHC 33.6 g/dl (32.0-36.0); MEAN CELL VOLUME 100.1 fl (80-96); MEAN PLT VOLUME 7.6 fl (7.5-11.1); PLATELET COUNT 262 K/MM3 (134-434); RDW 21.4 % (11.6-15.6); WHITE BLOOD COUNT 2.4 K/mm3 (4.0-10.0)
[2017-05-12 02:18] LABS: URINE APPEARANCE TURBID; URINE BILIRUBIN NEGATIVE (NEGATIVE); URINE BLOOD NEGATIVE (NEGATIVE); URINE COLOR AMBER; URINE GLUCOSE (UA) NEGATIVE (NEGATIVE); URINE KETONE NEGATIVE (NEGATIVE); URINE NITRITE NEGATIVE (NEGATIVE); URINE UROBILINOGEN NEGATIVE mg/dL (0.2-1.0)
[2017-05-12 02:20] LABS: ALBUMIN 2.8 g/dl (3.4-5.0); ANION GAP 13 (8-16); BILIRUBIN,TOTAL 0.7 mg/dL (0.2-1.0); CALCIUM 8.9 mg/dL (8.5-10.1); CO2 27 mmol/L (21-32); CREATININE 1.5 mg/dL (0.55-1.02); GLUCOSE,RANDOM 193 mg/dL (74-106); PHOSPHOROUS 4.8 mg/dL (2.5-4.9); SGOT/AST 22 U/L (15-37); SGPT/ALT 54 U/L (12-78); TROPONIN I 0.11 ng/ml (0.00-0.05); URINE PROTEIN 2+ (NEGATIVE)
[2017-05-12 02:21] LABS: ALK PHOS 123 U/L (45-117); TOT PROT 6.8 g/dl (6.4-8.2)
[2017-05-12 02:32] LABS: URINE BACTERIA RARE /hpf (NONE SEEN); URINE HYALINE CAST 7 /lpf; URINE RBC 4 /hpf (0-3); URINE WBC 1394 /hpf (3-5)
[2017-05-12] MEDS ORDERED: SODIUM CHLORIDE 250 ML IV STA (02:41)
[2017-05-12 03:25] LABS: ANISOCYTOSIS 2+; MACROCYTOSIS 2+
[2017-05-12] MEDS ORDERED: SODIUM CHLORIDE 1,000 ML IV STA ×2 (05:43→15:08)
[2017-05-12] MEDS ORDERED: NAPH,MB-DB/K PH,MBDB POWDER PACKET NGT SCH (06:00)
[2017-05-12] MEDS: FENTANYL INJECTION 500 MCG in DEXTROSE 5%-WATER - 90 ML IJ SCH ×3 (06:19→19:20)
[2017-05-12 06:26] LABS: MCH 34.1 pg (25.7-33.7); MCHC 33.9 g/dl (32.0-36.0); MEAN CELL VOLUME 100.6 fl (80-96); MEAN PLT VOLUME 7.2 fl (7.5-11.1); PLATELET COUNT 240 K/MM3 (134-434); RDW 21.5 % (11.6-15.6); WHITE BLOOD COUNT 2.2 K/mm3 (4.0-10.0)
[2017-05-12 06:53] LABS: ANION GAP 11 (8-16); CALCIUM 8.2 mg/dL (8.5-10.1); CO2 23 mmol/L (21-32); CREATININE 1.8 mg/dL (0.55-1.02); GLUCOSE,RANDOM 141 mg/dL (74-106); MAGNESIUM 1.8 mg/dL (1.8-2.4); PHOSPHOROUS 4.1 mg/dL (2.5-4.9)
[2017-05-12] MEDS: LEVOTHYROXINE SODIUM 100 MCG VIAL IVPUSH SCH (07:39)
[2017-05-12] MEDS ORDERED: METOPROLOL TARTRATE 5 MG/5 ML VIAL IVPB SCH (09:00)
[2017-05-12 09:13] LABS: METAMYELOCYTE 13 % (0-2); PLATELET ESTIMATE ADEQUATE (NORMAL); TOTAL CELLS COUNTED 100
[2017-05-12 09:18] LABS: ANISOCYTOSIS 2+; MACROCYTOSIS 1+
[2017-05-12] MEDS: PANTOPRAZOLE SODIUM 40 MG/100 ML PRE-DOCKED IVPB SCH (09:19)
[2017-05-12 09:59] LABS: URINE LEUK ESTERASE 3+ (NEGATIVE)
[2017-05-12] MEDS ORDERED: PANTOPRAZOLE SODIUM 80 MG in SODIUM CHLORIDE 100 ML IVPB SCH (10:00)
[2017-05-12] MEDS ORDERED: PANTOPRAZOLE SODIUM 40 MG in SODIUM CHLORIDE 100 ML IVPB SCH (10:00)
--- NOTE | 2017-05-12 11:06 | EKG ---
Test Reason : Blood Pressure : / mmHG Vent. Rate : 110 BPM Atrial Rate : 110 BPM P-R Int : 128 ms QRS Dur : 090 ms QT Int : 364 ms P-R-T Axes : 084 061 069 degrees QTc Int : 492 ms SINUS TACHYCARDIA OTHERWISE NORMAL ECG WHEN COMPARED WITH ECG OF 28-APR-2017 19:36, NO SIGNIFICANT CHANGE WAS FOUND Confirmed by NAKUL RESENDIZ MD ([id number]) on 05/12/2017 11:06:03 AM Referred By: KITTY Confirmed By:NAKUL RESENDIZ MD
--- NOTE | 2017-05-12 11:09 | CON.CARD ---
Consult Consult Specialty:: cardiology - History of Present Illness History of Present Illness: This is a 82 yo woman PMH: dementia, hypothyroid, HTN, active tobacco, CAD s/p sent, CHF presenting to ICU after [facility] for hypoxic respiratory failure, SVT (HR 180s) and shock. Briefly, patient initially presented for frequent falls and altered mental status with overall physical and cognitive decline over the last 6 months prior to admission. CT head: w/ central atrophy and mild microvascular ischemic gliosis. Labs significant for hypothyroid, leukopenia and pyuria, she was started on ceftriaxone. Neurology was consulted. Endocrine consulted. Mental status had some improvement while on the floor. Speech and swallow eval done c/ f aspiration. ABX were switch to zosyn given increased secretions and c/f pneumonia. Plans made for potential PEG placement. Patient continued to have waxing and waning mental status. Patient had notable right facial droop and NCHCT done w/o acute pathology. She completed a course of ABX. GI was consulted for c/f GIB. Heme also consulted given anemia and leukopenia and w/u sent: flow- -0.2% blasts, clonal B cells questionable nonspecific immunophenotype. On day of ICU admission patient had witnessed aspiration event. [facility] was called in PM for hypoxia and tachycardia. Patient transferred to ICU for hypoxic respiratory failure. Patient intubated. ABG 7.3/54/242 (ACVC: 20/400/100 +5). Patient given adenosine for SVT w/ underlying sinus rhythm. Patient continued to have RVR and was given lopressor 5mg x1 w/ HR improved to 120s. Family called but were unavailable. - History Source - Past Medical History Cardio/Vascular: Yes: CHF, HTN Pulmonary: Yes: COPD Endocrine: Yes: Hypothyroidism - Alcohol/Substance Use Hx Alcohol Use: No - Smoking History Smoking history: Former smoker Have you smoked in the past 12 months: Yes Aproximately how many cigarettes per day: 20 If you are a former smoker, when did you quit?: 01/2017 Home Medications - Allergies Allergies/Adverse Reactions: Allergies Allergy/AdvReac Type Severity Reaction Status Date / Time pineapple [Pineapple] Allergy Severe Swelling Verified 04/01/17 13:45 adhesive tape Allergy Mild Rash Verified 04/01/17 13:45 - Home Medications Home Medications: Ambulatory Orders Aspirin Coated [Ecotrin -] 81 mg PO DAILY #30 tablet.ec 01/03/14 Carvedilol [Coreg -] 3.125 mg PO BID #60 tablet 01/03/14 Levothyroxine [Synthroid -] 100 mcg PO DAILY@0700 #30 tablet 01/03/14 Lisinopril [Prinivil] 2.5 mg PO DAILY #30 tablet 01/03/14 Atorvastatin Ca [Lipitor] 10 mg PO HS 04/01/17 Clopidogrel Bisulfate [Plavix -] 75 mg PO DAILY 04/01/17 Folic Acid 1 mg PO DAILY 04/01/17 Review of Systems Unable to obtain ROS, reason: intubated Vital Signs: Vital Signs Temperature 98.6 F 05/12/17 10:00 Pulse Rate 105 H 05/12/17 10:00 Respiratory Rate 14 05/12/17 10:00 Blood Pressure 92/47 05/12/17 10:00 O2 Sat by Pulse Oximetry (%) 100 05/12/17 02:25 Constitutional: Yes: Well Nourished, No Distress, Calm Eyes: Yes: WNL, Conjunctiva Clear, EOM Intact HENT: Yes: WNL, Atraumatic, Normocephalic Neck: Yes: WNL, Supple, Trachea Midline Respiratory: Yes: Diminished, Intubated, Mechanically Ventilated Gastrointestinal: Yes: WNL, Normal Bowel Sounds Renal/: Yes: WNL Cardiovascular: Yes: WNL, Regular Rate and Rhythm Musculoskeletal: Yes: WNL Extremities: Yes: WNL Integumentary: Yes: WNL Neurological: Yes: Unresponsive ...Motor Strength: WNL Psychiatric: Yes: WNL, Alert, Oriented - Other Data Labs, Other Data: CBC, BMP 05/12/17 06:10 05/12/17 06:10 INR, PTT INR 1.11 (0.82-1.09) 05/12/17 01:35 Troponin, BNP 05/12/17 05/12/17 01:35 06:10 Troponin I 0.11 H 0.14 H Troponin, BNP 05/12/17 05/12/17 01:35 06:10 Troponin I 0.11 H 0.14 H Laboratory Tests 04/01/17 04/01/17 04/01/17 14:56 14:56 14:56 WBC 2.6 L D Corrected WBC (auto) RBC 2.43 L D Hgb 9.2 L D Hct 25.0 L D MCV 102.8 H MCH 37.8 H MCHC 36.8 H RDW 14.9 Plt Count 109 L D MPV 7.1 L D Total Counted Neutrophils % 31.3 L D Neutrophils % (Manual) Band Neuts % (Manual) Lymphocytes % 59.2 H D Lymphocytes % (Manual) Monocytes % 6.2 Monocytes % (Manual) Eosinophils % 3.1 Eosinophils % (Manual) Basophils % 0.2 Hypochromia Platelet Estimate Platelet Comment RBC Morphology Polychromasia Anisocytosis Microcytosis Macrocytosis PT with INR INR 1.05 PTT (Actin FS) Puncture Site Patient Temperature ABG pH ABG pCO2 at Pt Temp ABG pO2 at Pt Temp ABG HCO3 ABG O2 Sat (Measured) ABG O2 Content ABG Base Excess Demario Test O2 Delivery Device Oxygen Flow Rate Vent Mode Vent Rate Mechanical Rate PEEP Pressure Support Vent Sodium 140 Potassium 4.1 Chloride 105 Carbon Dioxide 28 Anion Gap 7 L BUN 30 H Creatinine 1.2 H Creat Clearance w eGFR 43.23 POC Glucometer Random Glucose 95 Lactic Acid Calcium 9.2 Phosphorus 3.4 Magnesium 2.1 Iron TIBC Iron Saturation Transferrin Ferritin Total Bilirubin 0.5 D AST 13 L ALT 15 Alkaline Phosphatase 70 D Creatine Kinase Troponin I Prot Electrophoresis Serum Total Protein Total Protein 6.6 Albumin 3.6 Globulin Albumin/Globulin Ratio Bxjzj-2-Gdpgjoxoi Pjodt-1-Vjsguexgm Beta Globulins Gamma Globulins Vitamin B12 Serum Folate TSH 0.16 L Free T4 Free T3 Urine Color Urine Appearance Urine pH Ur Specific Milo Urine Protein Urine Glucose (UA) Urine Ketones Urine Blood Urine Nitrite Urine Bilirubin Urine Urobilinogen Ur Leukocyte Esterase Urine RBC Urine WBC Ur Epithelial Cells Urine Bacteria Hyaline Casts Urine Mucus Stool Occult Blood IgG IgA IgM EVAN M-Breezy EVAN Comments Serum EVAN Interpret Blood Type Antibody Screen Crossmatch 04/01/17 04/02/17 04/02/17 18:15 06:15 06:15 WBC 2.2 L Corrected WBC (auto) RBC 2.64 L Hgb 9.6 L Hct 27.0 L MCV 102.3 H MCH 36.4 H MCHC 35.6 RDW 14.8 Plt Count 107 L MPV 7.1 L Total Counted Neutrophils % 34.1 L Neutrophils % (Manual) Band Neuts % (Manual) Lymphocytes % 57.5 H Lymphocytes % (Manual) Monocytes % 5.1 Monocytes % (Manual) Eosinophils % 3.0 Eosinophils % (Manual) Basophils % 0.3 Hypochromia Platelet Estimate Platelet Comment RBC Morphology Polychromasia Anisocytosis Microcytosis Macrocytosis PT with INR INR PTT (Actin FS) Puncture Site Patient Temperature ABG pH ABG pCO2 at Pt Temp ABG pO2 at Pt Temp ABG HCO3 ABG O2 Sat (Measured) ABG O2 Content ABG Base Excess Demario Test O2 Delivery Device Oxygen Flow Rate Vent Mode Vent Rate Mechanical Rate PEEP Pressure Support Vent Sodium 140 Potassium 3.8 Chloride 105 Carbon Dioxide 27 Anion Gap 8 BUN 23 H D Creatinine 1.2 H Creat Clearance w eGFR 43.23 POC Glucometer Random Glucose 95 Lactic Acid Calcium 8.9 Phosphorus Magnesium 2.0 Iron TIBC Iron Saturation Transferrin Ferritin Total Bilirubin 0.7 D AST 15 ALT 16 Alkaline Phosphatase 76 Creatine Kinase Troponin I Prot Electrophoresis Serum Total Protein Total Protein 6.8 Albumin 3.7 Globulin Albumin/Globulin Ratio Gxxvv-7-Jtukigcex Oinho-7-Vchhpdokk Beta Globulins Gamma Globulins Vitamin B12 Serum Folate TSH Free T4 Free T3 Urine Color Ltyellow Urine Appearance Slcloudy Urine pH 5.0 Ur Specific Milo 1.015 Urine Protein Negative Urine Glucose (UA) Negative Urine Ketones Negative Urine Blood Negative Urine Nitrite Negative Urine Bilirubin Negative Urine Urobilinogen Negative Ur Leukocyte Esterase Trace Urine RBC 1 Urine WBC 32 Ur Epithelial Cells Rare Urine Bacteria Hyaline Casts Urine Mucus Rare Stool Occult Blood IgG IgA IgM EVAN M-Breezy EVAN Comments Serum EVAN Interpret Blood Type Antibody Screen Crossmatch 04/02/17 04/02/17 04/02/17 06:15 06:15 06:15 WBC Corrected WBC (auto) RBC Hgb Hct MCV MCH MCHC RDW Plt Count MPV Total Counted Neutrophils % Neutrophils % (Manual) Band Neuts % (Manual) Lymphocytes % Lymphocytes % (Manual) Monocytes % Monocytes % (Manual) Eosinophils % Eosinophils % (Manual) Basophils % Hypochromia Platelet Estimate Platelet Comment RBC Morphology Polychromasia Anisocytosis Microcytosis Macrocytosis PT with INR INR PTT (Actin FS) Puncture Site Patient Temperature ABG pH ABG pCO2 at Pt Temp ABG pO2 at Pt Temp ABG HCO3 ABG O2 Sat (Measured) ABG O2 Content ABG Base Excess Demario Test O2 Delivery Device Oxygen Flow Rate Vent Mode Vent Rate Mechanical Rate PEEP Pressure Support Vent Sodium Potassium Chloride Carbon Dioxide Anion Gap BUN Creatinine Creat Clearance w eGFR POC Glucometer Random Glucose Lactic Acid Calcium Phosphorus Magnesium Iron TIBC Iron Saturation Transferrin Ferritin Total Bilirubin AST ALT Alkaline Phosphatase Creatine Kinase Troponin I Prot Electrophoresis Serum Total Protein Total Protein Albumin Globulin Albumin/Globulin Ratio Tndsr-4-Uygsfowdp Etiuc-5-Bmohwyxml Beta Globulins Gamma Globulins Vitamin B12 832 Serum Folate 86 H TSH Free T4 1.68 H Free T3 2.4 Urine Color Urine Appearance Urine pH Ur Specific Milo Urine Protein Urine Glucose (UA) Urine Ketones Urine Blood Urine Nitrite Urine Bilirubin Urine Urobilinogen Ur Leukocyte Esterase Urine RBC Urine WBC Ur Epithelial Cells Urine Bacteria Hyaline Casts Urine Mucus Stool Occult Blood IgG IgA IgM EVAN M-Breezy EVAN Comments Serum EVAN Interpret Blood Type Antibody Screen Crossmatch 04/03/17 04/03/17 04/04/17 07:35 07:35 06:45 WBC 2.9 L D Corrected WBC (auto) RBC 2.87 L Hgb 10.5 L Hct 29.4 L MCV 102.6 H MCH 36.7 H MCHC 35.8 RDW 14.8 Plt Count 120 L MPV 7.5 Total Counted Neutrophils % 38.2 L Neutrophils % (Manual) Band Neuts % (Manual) Lymphocytes % 54.2 H Lymphocytes % (Manual) Monocytes % 5.3 Monocytes % (Manual) Eosinophils % 2.0 Eosinophils % (Manual) Basophils % 0.3 Hypochromia Platelet Estimate Platelet Comment RBC Morphology Polychromasia Anisocytosis Microcytosis Macrocytosis PT with INR INR PTT (Actin FS) Puncture Site Patient Temperature ABG pH ABG pCO2 at Pt Temp ABG pO2 at Pt Temp ABG HCO3 ABG O2 Sat (Measured) ABG O2 Content ABG Base Excess Demario Test O2 Delivery Device Oxygen Flow Rate Vent Mode Vent Rate Mechanical Rate PEEP Pressure Support Vent Sodium 140 140 Potassium 3.8 3.3 L Chloride 103 108 H Carbon Dioxide 25 24 Anion Gap 12 8 BUN 24 H 22 H Creatinine 1.3 H 1.2 H Creat Clearance w eGFR POC Glucometer Random Glucose 111 H 89 Lactic Acid Calcium 8.9 8.7 Phosphorus Magnesium Iron TIBC Iron Saturation Transferrin Ferritin Total Bilirubin AST ALT Alkaline Phosphatase Creatine Kinase Troponin I Prot Electrophoresis Serum Total Protein Total Protein Albumin Globulin Albumin/Globulin Ratio Usrwa-4-Ajypmyxbj Jwxvp-0-Pcahgplja Beta Globulins Gamma Globulins Vitamin B12 Serum Folate TSH Free T4 Free T3 Urine Color Urine Appearance Urine pH Ur Specific Milo Urine Protein Urine Glucose (UA) Urine Ketones Urine Blood Urine Nitrite Urine Bilirubin Urine Urobilinogen Ur Leukocyte Esterase Urine RBC Urine WBC Ur Epithelial Cells Urine Bacteria Hyaline Casts Urine Mucus Stool Occult Blood IgG IgA IgM EVAN M-Breezy EVAN Comments Serum EVAN Interpret Blood Type Antibody Screen Crossmatch 04/04/17 04/04/17 04/04/17 06:45 08:00 17:25 WBC 2.0 L D Corrected WBC (auto) RBC 2.49 L Hgb 9.1 L D Hct 25.3 L MCV 101.6 H MCH 36.6 H MCHC 36.0 RDW 14.8 Plt Count 97 L MPV 7.0 L Total Counted Neutrophils % 30.7 L Neutrophils % (Manual) Band Neuts % (Manual) Lymphocytes % 60.4 H Lymphocytes % (Manual) Monocytes % 5.4 Monocytes % (Manual) Eosinophils % 3.1 Eosinophils % (Manual) Basophils % 0.4 Hypochromia Platelet Estimate Platelet Comment RBC Morphology Polychromasia Anisocytosis Microcytosis Macrocytosis PT with INR INR PTT (Actin FS) Puncture Site Patient Temperature ABG pH ABG pCO2 at Pt Temp ABG pO2 at Pt Temp ABG HCO3 ABG O2 Sat (Measured) ABG O2 Content ABG Base Excess Demario Test O2 Delivery Device Oxygen Flow Rate Vent Mode Vent Rate Mechanical Rate PEEP Pressure Support Vent Sodium Potassium Chloride Carbon Dioxide Anion Gap BUN Creatinine Creat Clearance w eGFR POC Glucometer Random Glucose Lactic Acid Calcium Phosphorus Magnesium Iron TIBC Iron Saturation Transferrin Ferritin Total Bilirubin AST ALT Alkaline Phosphatase Creatine Kinase Troponin I Prot Electrophoresis Serum Total Protein Total Protein Albumin Globulin Albumin/Globulin Ratio Kraeb-8-Nknvigqym Turey-1-Wphzpnewk Beta Globulins Gamma Globulins Vitamin B12 Serum Folate TSH Free T4 Free T3 Urine Color Yellow Urine Appearance Slcloudy Urine pH 5.0 Ur Specific Milo 1.020 Urine Protein Negative Urine Glucose (UA) Negative Urine Ketones Trace H Urine Blood 1+ H Urine Nitrite Negative Urine Bilirubin Negative Urine Urobilinogen Negative Ur Leukocyte Esterase Negative Urine RBC 2 Urine WBC 11 Ur Epithelial Cells Rare Urine Bacteria Rare Hyaline Casts 8 Urine Mucus Rare Stool Occult Blood Negative IgG IgA IgM EVAN M-Breezy EVAN Comments Serum EVAN Interpret Blood Type Antibody Screen Crossmatch 04/05/17 04/05/17 04/06/17 08:00 08:00 06:30 WBC 2.1 L 2.3 L Corrected WBC (auto) RBC 2.41 L 2.35 L Hgb 8.7 L 8.6 L Hct 24.6 L 23.9 L MCV 102.3 H 101.8 H MCH 36.3 H 36.6 H MCHC 35.5 36.0 RDW 15.2 15.1 Plt Count 97 L 98 L MPV 7.0 L 7.0 L Total Counted 100 Neutrophils % 33.1 L Y Neutrophils % (Manual) 25 L Band Neuts % (Manual) Lymphocytes % 58.4 H Y Lymphocytes % (Manual) 70 H Monocytes % 5.6 Monocytes % (Manual) 3 L Eosinophils % 2.6 Eosinophils % (Manual) 2 Basophils % 0.3 Hypochromia Platelet Estimate Platelet Comment RBC Morphology Polychromasia Anisocytosis Microcytosis Macrocytosis PT with INR INR PTT (Actin FS) Puncture Site Patient Temperature ABG pH ABG pCO2 at Pt Temp ABG pO2 at Pt Temp ABG HCO3 ABG O2 Sat (Measured) ABG O2 Content ABG Base Excess Demario Test O2 Delivery Device Oxygen Flow Rate Vent Mode Vent Rate Mechanical Rate PEEP Pressure Support Vent Sodium 142 Potassium 4.2 D Chloride 110 H Carbon Dioxide 24 Anion Gap 10 BUN 15 D Creatinine 1.2 H Creat Clearance w eGFR 43.23 POC Glucometer Random Glucose 130 H D Lactic Acid Calcium 8.8 Phosphorus Magnesium 2.1 Iron TIBC Iron Saturation Transferrin Ferritin Total Bilirubin 0.5 D AST 18 ALT 18 Alkaline Phosphatase 71 Creatine Kinase Troponin I Prot Electrophoresis Serum Total Protein Total Protein 6.3 L Albumin 3.4 Globulin Albumin/Globulin Ratio Nfkkz-7-Vneswtrgq Dybts-9-Axmdhphxl Beta Globulins Gamma Globulins Vitamin B12 Serum Folate TSH Free T4 Free T3 Urine Color Urine Appearance Urine pH Ur Specific Milo Urine Protein Urine Glucose (UA) Urine Ketones Urine Blood Urine Nitrite Urine Bilirubin Urine Urobilinogen Ur Leukocyte Esterase Urine RBC Urine WBC Ur Epithelial Cells Urine Bacteria Hyaline Casts Urine Mucus Stool Occult Blood IgG IgA IgM EVAN M-Breezy EVAN Comments Serum EVAN Interpret Blood Type Antibody Screen Crossmatch 04/06/17 04/07/17 04/07/17 06:30 06:47 06:47 WBC 2.4 L Corrected WBC (auto) RBC 2.57 L Hgb 9.3 L Hct 26.0 L MCV 101.4 H MCH 36.2 H MCHC 35.7 RDW 15.0 Plt Count 100 L MPV 7.2 L Total Counted Neutrophils % 41.1 L D Neutrophils % (Manual) Band Neuts % (Manual) Lymphocytes % 48.1 H Lymphocytes % (Manual) Monocytes % 7.9 Monocytes % (Manual) Eosinophils % 2.6 Eosinophils % (Manual) Basophils % 0.3 Hypochromia Platelet Estimate Platelet Comment RBC Morphology Polychromasia Anisocytosis Microcytosis Macrocytosis PT with INR INR PTT (Actin FS) Puncture Site Patient Temperature ABG pH ABG pCO2 at Pt Temp ABG pO2 at Pt Temp ABG HCO3 ABG O2 Sat (Measured) ABG O2 Content ABG Base Excess Demario Test O2 Delivery Device Oxygen Flow Rate Vent Mode Vent Rate Mechanical Rate PEEP Pressure Support Vent Sodium 142 140 Potassium 4.1 4.0 Chloride 108 H 105 Carbon Dioxide 28 27 Anion Gap 6 L 8 BUN 12 13 Creatinine 1.0 1.1 H Creat Clearance w eGFR POC Glucometer Random Glucose 96 D 103 Lactic Acid Calcium 8.8 8.9 Phosphorus 2.2 L D 2.6 Magnesium 2.1 2.1 Iron TIBC Iron Saturation Transferrin Ferritin Total Bilirubin AST ALT Alkaline Phosphatase Creatine Kinase Troponin I Prot Electrophoresis Serum Total Protein Total Protein Albumin Globulin Albumin/Globulin Ratio Ucpuk-2-Stbokstcl Lqoaz-3-Dbicnnonn Beta Globulins Gamma Globulins Vitamin B12 Serum Folate TSH Free T4 Free T3 Urine Color Urine Appearance Urine pH Ur Specific Milo Urine Protein Urine Glucose (UA) Urine Ketones Urine Blood Urine Nitrite Urine Bilirubin Urine Urobilinogen Ur Leukocyte Esterase Urine RBC Urine WBC Ur Epithelial Cells Urine Bacteria Hyaline Casts Urine Mucus Stool Occult Blood IgG IgA IgM EVAN M-Breezy EVAN Comments Serum EVAN Interpret Blood Type Antibody Screen Crossmatch 04/07/17 04/08/17 04/08/17 12:00 06:00 06:00 WBC 2.4 L Corrected WBC (auto) RBC 2.51 L Hgb 9.2 L Hct 25.5 L MCV 101.6 H MCH 36.4 H MCHC 35.9 RDW 15.4 Plt Count 101 L MPV 7.3 L Total Counted Neutrophils % 34.8 L Neutrophils % (Manual) Band Neuts % (Manual) Lymphocytes % 54.0 H Lymphocytes % (Manual) Monocytes % 6.3 Monocytes % (Manual) Eosinophils % 4.5 Eosinophils % (Manual) Basophils % 0.4 Hypochromia Platelet Estimate Platelet Comment RBC Morphology Polychromasia Anisocytosis Microcytosis Macrocytosis PT with INR INR PTT (Actin FS) Puncture Site Patient Temperature ABG pH ABG pCO2 at Pt Temp ABG pO2 at Pt Temp ABG HCO3 ABG O2 Sat (Measured) ABG O2 Content ABG Base Excess Demario Test O2 Delivery Device Oxygen Flow Rate Vent Mode Vent Rate Mechanical Rate PEEP Pressure Support Vent Sodium 141 Potassium 3.9 Chloride 105 Carbon Dioxide 28 Anion Gap 8 BUN 15 Creatinine 1.1 H Creat Clearance w eGFR POC Glucometer 120 Random Glucose 94 Lactic Acid Calcium 9.1 Phosphorus 3.2 D Magnesium 2.1 Iron TIBC Iron Saturation Transferrin Ferritin Total Bilirubin AST ALT Alkaline Phosphatase Creatine Kinase Troponin I Prot Electrophoresis Serum Total Protein Total Protein Albumin Globulin Albumin/Globulin Ratio Pgbzd-5-Penkdtprn Msmnl-4-Kopxnwtxu Beta Globulins Gamma Globulins Vitamin B12 Serum Folate TSH Free T4 Free T3 Urine Color Urine Appearance Urine pH Ur Specific Milo Urine Protein Urine Glucose (UA) Urine Ketones Urine Blood Urine Nitrite Urine Bilirubin Urine Urobilinogen Ur Leukocyte Esterase Urine RBC Urine WBC Ur Epithelial Cells Urine Bacteria Hyaline Casts Urine Mucus Stool Occult Blood IgG IgA IgM EVAN M-Breezy EVAN Comments Serum EVAN Interpret Blood Type Antibody Screen Crossmatch 04/09/17 04/09/17 04/10/17 06:30 06:30 08:00 WBC 2.5 L 2.3 L Corrected WBC (auto) RBC 2.60 L 2.54 L Hgb 9.4 L 9.3 L Hct 26.4 L 25.8 L MCV 101.4 H 101.4 H MCH 36.2 H 36.4 H MCHC 35.7 35.9 RDW 15.0 14.8 Plt Count 108 L 107 L MPV 6.9 L 7.0 L Total Counted Neutrophils % 45.0 D 45.2 Neutrophils % (Manual) Band Neuts % (Manual) Lymphocytes % 44.1 H 43.8 H Lymphocytes % (Manual) Monocytes % 7.6 8.5 Monocytes % (Manual) Eosinophils % 3.0 2.0 Eosinophils % (Manual) Basophils % 0.3 0.5 Hypochromia Platelet Estimate Platelet Comment RBC Morphology Polychromasia Anisocytosis Microcytosis Macrocytosis PT with INR INR PTT (Actin FS) Puncture Site Patient Temperature ABG pH ABG pCO2 at Pt Temp ABG pO2 at Pt Temp ABG HCO3 ABG O2 Sat (Measured) ABG O2 Content ABG Base Excess Demario Test O2 Delivery Device Oxygen Flow Rate Vent Mode Vent Rate Mechanical Rate PEEP Pressure Support Vent Sodium 139 Potassium 4.2 Chloride 104 Carbon Dioxide 27 Anion Gap 8 BUN 16 Creatinine 1.1 H Creat Clearance w eGFR POC Glucometer Random Glucose 112 H Lactic Acid Calcium 9.0 Phosphorus 3.2 Magnesium 2.1 Iron TIBC Iron Saturation Transferrin Ferritin Total Bilirubin AST ALT Alkaline Phosphatase Creatine Kinase Troponin I Prot Electrophoresis Serum Total Protein Total Protein Albumin Globulin Albumin/Globulin Ratio Zilvy-1-Bsclpciga Atkiw-4-Vgentauux Beta Globulins Gamma Globulins Vitamin B12 Serum Folate TSH Free T4 Free T3 Urine Color Urine Appearance Urine pH Ur Specific Milo Urine Protein Urine Glucose (UA) Urine Ketones Urine Blood Urine Nitrite Urine Bilirubin Urine Urobilinogen Ur Leukocyte Esterase Urine RBC Urine WBC Ur Epithelial Cells Urine Bacteria Hyaline Casts Urine Mucus Stool Occult Blood IgG IgA IgM EVAN M-Breezy EVAN Comments Serum EVAN Interpret Blood Type Antibody Screen Crossmatch 04/10/17 04/12/17 04/14/17 08:00 11:12 07:00 WBC 2.6 L Corrected WBC (auto) RBC 2.37 L Hgb 8.7 L Hct 24.2 L MCV 102.0 H MCH 36.6 H MCHC 35.9 RDW 15.1 Plt Count 118 L MPV 7.4 L Total Counted Neutrophils % 61.6 D Neutrophils % (Manual) Band Neuts % (Manual) Lymphocytes % 28.1 D Lymphocytes % (Manual) Monocytes % 7.2 Monocytes % (Manual) Eosinophils % 2.9 Eosinophils % (Manual) Basophils % 0.2 Hypochromia Platelet Estimate Platelet Comment RBC Morphology Polychromasia Anisocytosis Microcytosis Macrocytosis PT with INR INR PTT (Actin FS) Puncture Site Patient Temperature ABG pH ABG pCO2 at Pt Temp ABG pO2 at Pt Temp ABG HCO3 ABG O2 Sat (Measured) ABG O2 Content ABG Base Excess Demario Test O2 Delivery Device Oxygen Flow Rate Vent Mode Vent Rate Mechanical Rate PEEP Pressure Support Vent Sodium 138 Potassium 4.1 Chloride 104 Carbon Dioxide 28 Anion Gap 6 L BUN 19 H Creatinine 1.1 H Creat Clearance w eGFR POC Glucometer 126 Random Glucose 101 Lactic Acid Calcium 9.5 Phosphorus 3.2 Magnesium 2.2 Iron TIBC Iron Saturation Transferrin Ferritin Total Bilirubin AST ALT Alkaline Phosphatase Creatine Kinase Troponin I Prot Electrophoresis Serum Total Protein Total Protein Albumin Globulin Albumin/Globulin Ratio Zikwv-7-Qvwmrkjve Ieyqo-4-Wdaphhncx Beta Globulins Gamma Globulins Vitamin B12 Serum Folate TSH Free T4 Free T3 Urine Color Urine Appearance Urine pH Ur Specific Milo Urine Protein Urine Glucose (UA) Urine Ketones Urine Blood Urine Nitrite Urine Bilirubin Urine Urobilinogen Ur Leukocyte Esterase Urine RBC Urine WBC Ur Epithelial Cells Urine Bacteria Hyaline Casts Urine Mucus Stool Occult Blood IgG IgA IgM EVAN M-Breezy EVAN Comments Serum EVAN Interpret Blood Type Antibody Screen Crossmatch 04/14/17 04/15/17 04/15/17 07:00 07:30 07:30 WBC 2.9 L Corrected WBC (auto) RBC 2.46 L Hgb 8.9 L Hct 25.2 L MCV 102.5 H MCH 36.2 H MCHC 35.3 RDW 15.0 Plt Count 113 L MPV 7.3 L Total Counted Neutrophils % 56.0 Neutrophils % (Manual) Band Neuts % (Manual) Lymphocytes % 29.3 Lymphocytes % (Manual) Monocytes % 7.9 Monocytes % (Manual) Eosinophils % 6.4 H D Eosinophils % (Manual) Basophils % 0.4 Hypochromia Platelet Estimate Platelet Comment RBC Morphology Polychromasia Anisocytosis Microcytosis Macrocytosis PT with INR INR PTT (Actin FS) Puncture Site Patient Temperature ABG pH ABG pCO2 at Pt Temp ABG pO2 at Pt Temp ABG HCO3 ABG O2 Sat (Measured) ABG O2 Content ABG Base Excess Demario Test O2 Delivery Device Oxygen Flow Rate Vent Mode Vent Rate Mechanical Rate PEEP Pressure Support Vent Sodium 140 137 Potassium 3.1 L D 3.3 L Chloride 103 106 Carbon Dioxide 25 24 Anion Gap 12 7 L BUN 41 H D 35 H Creatinine 1.2 H 1.1 H Creat Clearance w eGFR POC Glucometer Random Glucose 129 H D 110 H Lactic Acid Calcium 9.2 8.7 Phosphorus 1.9 L D 2.4 L D Magnesium 2.3 1.9 Iron TIBC Iron Saturation Transferrin Ferritin Total Bilirubin AST ALT Alkaline Phosphatase Creatine Kinase Troponin I Prot Electrophoresis Serum Total Protein Total Protein Albumin Globulin Albumin/Globulin Ratio Roweb-2-Ktkhkcpcw Scxxl-4-Mptnvfozp Beta Globulins Gamma Globulins Vitamin B12 Serum Folate TSH Free T4 Free T3 Urine Color Urine Appearance Urine pH Ur Specific Milo Urine Protein Urine Glucose (UA) Urine Ketones Urine Blood Urine Nitrite Urine Bilirubin Urine Urobilinogen Ur Leukocyte Esterase Urine RBC Urine WBC Ur Epithelial Cells Urine Bacteria Hyaline Casts Urine Mucus Stool Occult Blood IgG IgA IgM EVAN M-Breezy EVAN Comments Serum EVAN Interpret Blood Type Antibody Screen Crossmatch 04/16/17 04/16/17 04/17/17 06:50 06:50 06:05 WBC 4.0 D 3.3 L Corrected WBC (auto) RBC 2.38 L 2.38 L Hgb 8.7 L 8.7 L Hct 23.9 L 24.2 L MCV 100.5 H 101.5 H MCH 36.5 H 36.4 H MCHC 36.3 H 35.9 RDW 15.0 14.8 Plt Count 122 L 116 L MPV 7.5 7.7 Total Counted Neutrophils % 60.8 55.9 Neutrophils % (Manual) Band Neuts % (Manual) Lymphocytes % 26.9 30.5 Lymphocytes % (Manual) Monocytes % 7.4 8.0 Monocytes % (Manual) Eosinophils % 4.6 H 5.3 H Eosinophils % (Manual) Basophils % 0.3 0.3 Hypochromia Platelet Estimate Platelet Comment RBC Morphology Polychromasia Anisocytosis Microcytosis Macrocytosis PT with INR INR PTT (Actin FS) Puncture Site Patient Temperature ABG pH ABG pCO2 at Pt Temp ABG pO2 at Pt Temp ABG HCO3 ABG O2 Sat (Measured) ABG O2 Content ABG Base Excess Demario Test O2 Delivery Device Oxygen Flow Rate Vent Mode Vent Rate Mechanical Rate PEEP Pressure Support Vent Sodium 136 Potassium 3.7 Chloride 104 Carbon Dioxide 19 L D Anion Gap 13 BUN 28 H Creatinine 0.9 Creat Clearance w eGFR POC Glucometer Random Glucose 115 H Lactic Acid Calcium 8.7 Phosphorus 2.0 L Magnesium 1.8 Iron TIBC Iron Saturation Transferrin Ferritin Total Bilirubin AST ALT Alkaline Phosphatase Creatine Kinase Troponin I Prot Electrophoresis Serum Total Protein Total Protein Albumin Globulin Albumin/Globulin Ratio Jbwlu-0-Koyzznemg Egxkv-1-Ygsskaxor Beta Globulins Gamma Globulins Vitamin B12 Serum Folate TSH Free T4 Free T3 Urine Color Urine Appearance Urine pH Ur Specific Milo Urine Protein Urine Glucose (UA) Urine Ketones Urine Blood Urine Nitrite Urine Bilirubin Urine Urobilinogen Ur Leukocyte Esterase Urine RBC Urine WBC Ur Epithelial Cells Urine Bacteria Hyaline Casts Urine Mucus Stool Occult Blood IgG IgA IgM EVAN M-Breezy EVAN Comments Serum EVAN Interpret Blood Type Antibody Screen Crossmatch 04/17/17 04/18/17 04/18/17 06:05 07:00 07:00 WBC Cancelled Corrected WBC (auto) Cancelled RBC Cancelled Hgb Cancelled Hct Cancelled MCV Cancelled MCH Cancelled MCHC Cancelled RDW Cancelled Plt Count Cancelled MPV Cancelled Total Counted Neutrophils % Cancelled Neutrophils % (Manual) Band Neuts % (Manual) Lymphocytes % Cancelled Lymphocytes % (Manual) Monocytes % Cancelled Monocytes % (Manual) Eosinophils % Cancelled Eosinophils % (Manual) Basophils % Cancelled Hypochromia Platelet Estimate Cancelled Platelet Comment Cancelled RBC Morphology Cancelled Polychromasia Anisocytosis Microcytosis Macrocytosis PT with INR INR PTT (Actin FS) Puncture Site Patient Temperature ABG pH ABG pCO2 at Pt Temp ABG pO2 at Pt Temp ABG HCO3 ABG O2 Sat (Measured) ABG O2 Content ABG Base Excess Demario Test O2 Delivery Device Oxygen Flow Rate Vent Mode Vent Rate Mechanical Rate PEEP Pressure Support Vent Sodium 136 136 Potassium 3.3 L 3.5 Chloride 103 104 Carbon Dioxide 25 D 23 Anion Gap 8 9 BUN 26 H 23 H Creatinine 0.9 0.8 Creat Clearance w eGFR > 60 POC Glucometer Random Glucose 112 H 117 H Lactic Acid Calcium 8.4 L 8.4 L Phosphorus 2.1 L Magnesium 1.7 L 2.0 Iron TIBC Iron Saturation Transferrin Ferritin Total Bilirubin 0.7 D AST 43 H D ALT 61 D Alkaline Phosphatase 129 H D Creatine Kinase Troponin I Prot Electrophoresis Serum Total Protein Total Protein 6.1 L Albumin 2.6 L D Globulin Albumin/Globulin Ratio Rxxah-4-Aeedzmotb Wkgjh-9-Oisccexfz Beta Globulins Gamma Globulins Vitamin B12 Serum Folate TSH Free T4 Free T3 Urine Color Urine Appearance Urine pH Ur Specific Milo Urine Protein Urine Glucose (UA) Urine Ketones Urine Blood Urine Nitrite Urine Bilirubin Urine Urobilinogen Ur Leukocyte Esterase Urine RBC Urine WBC Ur Epithelial Cells Urine Bacteria Hyaline Casts Urine Mucus Stool Occult Blood IgG IgA IgM EVAN M-Breezy EVAN Comments Serum EVAN Interpret Blood Type Antibody Screen Crossmatch 04/18/17 04/20/17 04/20/17 08:30 07:00 07:00 WBC 3.0 L 3.1 L Corrected WBC (auto) RBC 2.51 L 2.49 L Hgb 9.1 L 9.1 L Hct 25.5 L 25.0 L MCV 101.6 H 100.4 H MCH 36.2 H 36.4 H MCHC 35.6 36.2 H RDW 15.2 15.3 Plt Count 112 L 133 L MPV 7.4 L 7.2 L Total Counted Neutrophils % 50.4 57.7 Neutrophils % (Manual) Band Neuts % (Manual) Lymphocytes % 33.0 31.0 Lymphocytes % (Manual) Monocytes % 10.2 6.7 Monocytes % (Manual) Eosinophils % 5.8 H 4.3 Eosinophils % (Manual) Basophils % 0.6 0.3 Hypochromia Platelet Estimate Platelet Comment RBC Morphology Polychromasia Anisocytosis Microcytosis Macrocytosis PT with INR INR PTT (Actin FS) Puncture Site Patient Temperature ABG pH ABG pCO2 at Pt Temp ABG pO2 at Pt Temp ABG HCO3 ABG O2 Sat (Measured) ABG O2 Content ABG Base Excess Demario Test O2 Delivery Device Oxygen Flow Rate Vent Mode Vent Rate Mechanical Rate PEEP Pressure Support Vent Sodium 136 Potassium 3.3 L Chloride 101 Carbon Dioxide 25 Anion Gap 10 BUN 22 H Creatinine 0.8 Creat Clearance w eGFR POC Glucometer Random Glucose 112 H Lactic Acid Calcium 8.7 Phosphorus 1.8 L Magnesium 2.0 Iron TIBC Iron Saturation Transferrin Ferritin Total Bilirubin AST ALT Alkaline Phosphatase Creatine Kinase Troponin I Prot Electrophoresis Serum Total Protein Total Protein Albumin Globulin Albumin/Globulin Ratio Oykht-4-Irvvifuuv Osyax-2-Tdgvualsq Beta Globulins Gamma Globulins Vitamin B12 Serum Folate TSH Free T4 Free T3 Urine Color Urine Appearance Urine pH Ur Specific Milo Urine Protein Urine Glucose (UA) Urine Ketones Urine Blood Urine Nitrite Urine Bilirubin Urine Urobilinogen Ur Leukocyte Esterase Urine RBC Urine WBC Ur Epithelial Cells Urine Bacteria Hyaline Casts Urine Mucus Stool Occult Blood IgG IgA IgM EVAN M-Breezy EVAN Comments Serum EVAN Interpret Blood Type Antibody Screen Crossmatch 04/21/17 04/21/17 04/21/17 07:10 07:10 07:10 WBC 3.2 L Corrected WBC (auto) RBC 2.34 L Hgb 8.5 L Hct 23.5 L MCV 100.2 H MCH 36.2 H MCHC 36.1 H RDW 15.7 H Plt Count 141 MPV 7.2 L Total Counted Neutrophils % 59.3 Neutrophils % (Manual) Band Neuts % (Manual) Lymphocytes % 27.6 Lymphocytes % (Manual) Monocytes % 6.0 Monocytes % (Manual) Eosinophils % 6.6 H Eosinophils % (Manual) Basophils % 0.5 Hypochromia Platelet Estimate Platelet Comment RBC Morphology Polychromasia Anisocytosis Microcytosis Macrocytosis PT with INR 12.30 H INR 1.12 PTT (Actin FS) 27.6 Puncture Site Patient Temperature ABG pH ABG pCO2 at Pt Temp ABG pO2 at Pt Temp ABG HCO3 ABG O2 Sat (Measured) ABG O2 Content ABG Base Excess Demario Test O2 Delivery Device Oxygen Flow Rate Vent Mode Vent Rate Mechanical Rate PEEP Pressure Support Vent Sodium 137 Potassium 3.5 Chloride 103 Carbon Dioxide 22 Anion Gap 12 BUN 25 H Creatinine 0.8 Creat Clearance w eGFR POC Glucometer Random Glucose 105 Lactic Acid Calcium 8.8 Phosphorus 2.3 L D Magnesium 2.1 Iron TIBC Iron Saturation Transferrin Ferritin Total Bilirubin AST ALT Alkaline Phosphatase Creatine Kinase Troponin I Prot Electrophoresis Serum Total Protein Total Protein Albumin Globulin Albumin/Globulin Ratio Difjm-2-Mkacinwkw Yrbov-4-Ojcgmvvqf Beta Globulins Gamma Globulins Vitamin B12 Serum Folate TSH Free T4 Free T3 Urine Color Urine Appearance Urine pH Ur Specific Milo Urine Protein Urine Glucose (UA) Urine Ketones Urine Blood Urine Nitrite Urine Bilirubin Urine Urobilinogen Ur Leukocyte Esterase Urine RBC Urine WBC Ur Epithelial Cells Urine Bacteria Hyaline Casts Urine Mucus Stool Occult Blood IgG IgA IgM EVAN M-Breezy EVAN Comments Serum EVAN Interpret Blood Type Antibody Screen Crossmatch 04/22/17 04/22/17 04/23/17 06:45 06:45 10:14 WBC 2.9 L 2.8 L Corrected WBC (auto) RBC 2.25 L 2.08 L Hgb 8.2 L 7.5 L Hct 22.6 L 21.0 L MCV 100.7 H 101.0 H MCH 36.6 H 36.0 H MCHC 36.3 H 35.7 RDW 15.6 15.5 Plt Count 139 127 L MPV 7.3 L 7.1 L Total Counted Neutrophils % 59.8 60.9 Neutrophils % (Manual) Band Neuts % (Manual) Lymphocytes % 27.0 27.0 Lymphocytes % (Manual) Monocytes % 6.7 5.5 Monocytes % (Manual) Eosinophils % 6.1 H 5.5 H Eosinophils % (Manual) Basophils % 0.4 1.1 Hypochromia Platelet Estimate Platelet Comment RBC Morphology Polychromasia Anisocytosis Microcytosis Macrocytosis PT with INR INR PTT (Actin FS) Puncture Site Patient Temperature ABG pH ABG pCO2 at Pt Temp ABG pO2 at Pt Temp ABG HCO3 ABG O2 Sat (Measured) ABG O2 Content ABG Base Excess Demario Test O2 Delivery Device Oxygen Flow Rate Vent Mode Vent Rate Mechanical Rate PEEP Pressure Support Vent Sodium 135 L Potassium 3.3 L Chloride 104 Carbon Dioxide 22 Anion Gap 9 BUN 23 H Creatinine 0.8 Creat Clearance w eGFR POC Glucometer Random Glucose 111 H Lactic Acid Calcium 8.6 Phosphorus 2.4 L Magnesium 1.9 Iron TIBC Iron Saturation Transferrin Ferritin Total Bilirubin AST ALT Alkaline Phosphatase Creatine Kinase Troponin I Prot Electrophoresis Serum Total Protein Total Protein Albumin Globulin Albumin/Globulin Ratio Kpyzc-2-Jfyjdaxct Jdozg-7-Qiqyeuovu Beta Globulins Gamma Globulins Vitamin B12 Serum Folate TSH Free T4 Free T3 Urine Color Urine Appearance Urine pH Ur Specific Milo Urine Protein Urine Glucose (UA) Urine Ketones Urine Blood Urine Nitrite Urine Bilirubin Urine Urobilinogen Ur Leukocyte Esterase Urine RBC Urine WBC Ur Epithelial Cells Urine Bacteria Hyaline Casts Urine Mucus Stool Occult Blood IgG IgA IgM EVAN M-Breezy EVAN Comments Serum EVAN Interpret Blood Type Antibody Screen Crossmatch 04/23/17 04/24/17 04/24/17 10:14 08:35 08:35 WBC 2.7 L Corrected WBC (auto) RBC 2.23 L Hgb 8.1 L Hct 22.6 L MCV 101.6 H MCH 36.5 H MCHC 35.9 RDW 16.2 H Plt Count 135 MPV 7.5 Total Counted Neutrophils % 55.8 Neutrophils % (Manual) Band Neuts % (Manual) Lymphocytes % 30.7 Lymphocytes % (Manual) Monocytes % 7.0 Monocytes % (Manual) Eosinophils % 5.7 H Eosinophils % (Manual) Basophils % 0.8 Hypochromia Platelet Estimate Platelet Comment RBC Morphology Polychromasia Anisocytosis Microcytosis Macrocytosis PT with INR INR PTT (Actin FS) Puncture Site Patient Temperature ABG pH ABG pCO2 at Pt Temp ABG pO2 at Pt Temp ABG HCO3 ABG O2 Sat (Measured) ABG O2 Content ABG Base Excess Demario Test O2 Delivery Device Oxygen Flow Rate Vent Mode Vent Rate Mechanical Rate PEEP Pressure Support Vent Sodium 131 L 134 L Potassium 3.7 3.5 Chloride 100 104 Carbon Dioxide 23 24 Anion Gap 8 6 L BUN 19 H 23 H D Creatinine 0.8 0.8 Creat Clearance w eGFR POC Glucometer Random Glucose 223 H D 103 D Lactic Acid Calcium 8.3 L 8.2 L Phosphorus 2.3 L 2.2 L Magnesium 1.7 L 2.2 D Iron TIBC Iron Saturation Transferrin Ferritin Total Bilirubin AST ALT Alkaline Phosphatase Creatine Kinase Troponin I Prot Electrophoresis Serum Total Protein Total Protein Albumin Globulin Albumin/Globulin Ratio Ojivs-9-Rrnempwrf Ckumn-2-Pndeuvzkl Beta Globulins Gamma Globulins Vitamin B12 Serum Folate TSH Free T4 Free T3 Urine Color Urine Appearance Urine pH Ur Specific Milo Urine Protein Urine Glucose (UA) Urine Ketones Urine Blood Urine Nitrite Urine Bilirubin Urine Urobilinogen Ur Leukocyte Esterase Urine RBC Urine WBC Ur Epithelial Cells Urine Bacteria Hyaline Casts Urine Mucus Stool Occult Blood IgG IgA IgM EVAN M-Breezy EVAN Comments Serum EVAN Interpret Blood Type Antibody Screen Crossmatch 04/27/17 04/27/17 04/27/17 06:45 06:45 06:45 WBC 2.9 L Corrected WBC (auto) RBC 2.10 L Hgb 7.7 L Hct 21.0 L MCV 99.8 H MCH 36.7 H MCHC 36.8 H RDW 16.0 H Plt Count 138 MPV 7.3 L Total Counted Neutrophils % 55.7 Neutrophils % (Manual) Band Neuts % (Manual) Lymphocytes % 33.0 Lymphocytes % (Manual) Monocytes % 6.0 Monocytes % (Manual) Eosinophils % 5.0 H Eosinophils % (Manual) Basophils % 0.3 Hypochromia Platelet Estimate Platelet Comment RBC Morphology Polychromasia Anisocytosis Microcytosis Macrocytosis PT with INR 13.30 H INR 1.20 H PTT (Actin FS) Puncture Site Patient Temperature ABG pH ABG pCO2 at Pt Temp ABG pO2 at Pt Temp ABG HCO3 ABG O2 Sat (Measured) ABG O2 Content ABG Base Excess Demario Test O2 Delivery Device Oxygen Flow Rate Vent Mode Vent Rate Mechanical Rate PEEP Pressure Support Vent Sodium 135 L Potassium 2.9 L* Chloride 103 Carbon Dioxide 25 Anion Gap 7 L BUN 25 H Creatinine 0.8 Creat Clearance w eGFR POC Glucometer Random Glucose 115 H Lactic Acid Calcium 8.6 Phosphorus 1.4 L D Magnesium 1.7 L D Iron TIBC Iron Saturation Transferrin Ferritin Total Bilirubin AST ALT Alkaline Phosphatase Creatine Kinase Troponin I Prot Electrophoresis Serum Total Protein Total Protein Albumin Globulin Albumin/Globulin Ratio Ujhhl-5-Ynuiqacrv Knmni-2-Zkqppbztr Beta Globulins Gamma Globulins Vitamin B12 Serum Folate TSH Free T4 Free T3 Urine Color Urine Appearance Urine pH Ur Specific Milo Urine Protein Urine Glucose (UA) Urine Ketones Urine Blood Urine Nitrite Urine Bilirubin Urine Urobilinogen Ur Leukocyte Esterase Urine RBC Urine WBC Ur Epithelial Cells Urine Bacteria Hyaline Casts Urine Mucus Stool Occult Blood IgG IgA IgM EVAN M-Breezy EVAN Comments Serum EVAN Interpret Blood Type Antibody Screen Crossmatch 04/28/17 04/28/17 04/28/17 06:10 06:10 12:50 WBC 2.1 L Corrected WBC (auto) RBC 1.94 L Hgb 7.1 L Hct 19.4 L MCV 100.0 H MCH 36.6 H MCHC 36.6 H RDW 16.3 H Plt Count 125 L MPV 7.2 L Total Counted Neutrophils % 59.1 Neutrophils % (Manual) Band Neuts % (Manual) Lymphocytes % 28.4 Lymphocytes % (Manual) Monocytes % 6.9 Monocytes % (Manual) Eosinophils % 5.0 H Eosinophils % (Manual) Basophils % 0.6 Hypochromia Platelet Estimate Platelet Comment RBC Morphology Polychromasia Anisocytosis Microcytosis Macrocytosis PT with INR INR PTT (Actin FS) Puncture Site Patient Temperature ABG pH ABG pCO2 at Pt Temp ABG pO2 at Pt Temp ABG HCO3 ABG O2 Sat (Measured) ABG O2 Content ABG Base Excess Demario Test O2 Delivery Device Oxygen Flow Rate Vent Mode Vent Rate Mechanical Rate PEEP Pressure Support Vent Sodium 135 L Potassium 2.8 L* Chloride 103 Carbon Dioxide 22 Anion Gap 10 BUN 25 H Creatinine 0.7 Creat Clearance w eGFR POC Glucometer Random Glucose 130 H Lactic Acid Calcium 8.0 L Phosphorus 1.5 L Magnesium 2.0 Iron 71 TIBC 227 L Iron Saturation 31 Transferrin 183 L Ferritin Total Bilirubin AST ALT Alkaline Phosphatase Creatine Kinase Troponin I Prot Electrophoresis Serum Total Protein Total Protein Albumin Globulin Albumin/Globulin Ratio Tfzic-6-Gtetaoiwq Kgelb-4-Ajacaomkc Beta Globulins Gamma Globulins Vitamin B12 Serum Folate TSH Free T4 Free T3 Urine Color Urine Appearance Urine pH Ur Specific Milo Urine Protein Urine Glucose (UA) Urine Ketones Urine Blood Urine Nitrite Urine Bilirubin Urine Urobilinogen Ur Leukocyte Esterase Urine RBC Urine WBC Ur Epithelial Cells Urine Bacteria Hyaline Casts Urine Mucus Stool Occult Blood IgG IgA IgM EVAN M-Breezy EVAN Comments Serum EVAN Interpret Blood Type Antibody Screen Crossmatch 04/28/17 04/28/17 04/28/17 12:50 12:50 12:50 WBC Corrected WBC (auto) RBC Hgb Hct MCV MCH MCHC RDW Plt Count MPV Total Counted Neutrophils % Neutrophils % (Manual) Band Neuts % (Manual) Lymphocytes % Lymphocytes % (Manual) Monocytes % Monocytes % (Manual) Eosinophils % Eosinophils % (Manual) Basophils % Hypochromia Platelet Estimate Platelet Comment RBC Morphology Polychromasia Anisocytosis Microcytosis Macrocytosis PT with INR INR PTT (Actin FS) Puncture Site Patient Temperature ABG pH ABG pCO2 at Pt Temp ABG pO2 at Pt Temp ABG HCO3 ABG O2 Sat (Measured) ABG O2 Content ABG Base Excess Demario Test O2 Delivery Device Oxygen Flow Rate Vent Mode Vent Rate Mechanical Rate PEEP Pressure Support Vent Sodium Potassium Chloride Carbon Dioxide Anion Gap BUN Creatinine Creat Clearance w eGFR POC Glucometer Random Glucose Lactic Acid Calcium Phosphorus Magnesium Iron TIBC Iron Saturation Transferrin Ferritin 81.310 Total Bilirubin AST ALT Alkaline Phosphatase Creatine Kinase Troponin I Prot Electrophoresis Serum Total Protein Total Protein Albumin Globulin Albumin/Globulin Ratio Iftvo-5-Mthnebvrj Athft-3-Fkgujmwqx Beta Globulins Gamma Globulins Vitamin B12 2320 H Cancelled Serum Folate 34 H D TSH Free T4 Free T3 Urine Color Urine Appearance Urine pH Ur Specific Milo Urine Protein Urine Glucose (UA) Urine Ketones Urine Blood Urine Nitrite Urine Bilirubin Urine Urobilinogen Ur Leukocyte Esterase Urine RBC Urine WBC Ur Epithelial Cells Urine Bacteria Hyaline Casts Urine Mucus Stool Occult Blood IgG IgA IgM EVAN M-Breezy EVAN Comments Serum EVAN Interpret Blood Type A NEGATIVE Antibody Screen Negative Crossmatch See Detail 04/28/17 04/28/17 04/28/17 14:15 19:30 23:25 WBC Corrected WBC (auto) RBC Hgb Hct MCV MCH MCHC RDW Plt Count MPV Total Counted Neutrophils % Neutrophils % (Manual) Band Neuts % (Manual) Lymphocytes % Lymphocytes % (Manual) Monocytes % Monocytes % (Manual) Eosinophils % Eosinophils % (Manual) Basophils % Hypochromia Platelet Estimate Platelet Comment RBC Morphology Polychromasia Anisocytosis Microcytosis Macrocytosis PT with INR INR PTT (Actin FS) Puncture Site Patient Temperature ABG pH ABG pCO2 at Pt Temp ABG pO2 at Pt Temp ABG HCO3 ABG O2 Sat (Measured) ABG O2 Content ABG Base Excess Demario Test O2 Delivery Device Oxygen Flow Rate Vent Mode Vent Rate Mechanical Rate PEEP Pressure Support Vent Sodium 135 L Potassium 3.7 D Chloride 106 Carbon Dioxide 23 Anion Gap 6 L BUN 25 H Creatinine 0.6 Creat Clearance w eGFR POC Glucometer Random Glucose 94 D Lactic Acid Calcium 8.8 Phosphorus 1.9 L D Magnesium Iron TIBC Iron Saturation Transferrin Ferritin Total Bilirubin AST ALT Alkaline Phosphatase Creatine Kinase Troponin I Prot Electrophoresis Serum Total Protein Total Protein Albumin Globulin Albumin/Globulin Ratio Cglnb-3-Kwumbynrv Xehkc-8-Odvbsyxmn Beta Globulins Gamma Globulins Vitamin B12 Serum Folate TSH Free T4 Free T3 Urine Color Colorless Urine Appearance Clear Urine pH 5.0 Ur Specific Milo <= 1.005 Urine Protein Negative Urine Glucose (UA) Negative Urine Ketones Negative Urine Blood Negative Urine Nitrite Negative Urine Bilirubin Negative Urine Urobilinogen Negative Ur Leukocyte Esterase Urine RBC Urine WBC Ur Epithelial Cells Urine Bacteria Hyaline Casts Urine Mucus Stool Occult Blood Positive IgG IgA IgM EVAN M-Breezy EVAN Comments Serum EVAN Interpret Blood Type Antibody Screen Crossmatch 04/29/17 04/29/17 04/30/17 06:05 06:05 06:20 WBC 3.4 L D 2.6 L Corrected WBC (auto) RBC 3.74 D 3.17 L Hgb 12.3 D 10.3 L D Hct 34.7 D 28.9 L D MCV 92.7 91.2 MCH 32.8 D 32.4 MCHC 35.4 35.6 RDW 19.6 H D 20.5 H Plt Count 128 L 118 L MPV 7.3 L 7.2 L Total Counted Neutrophils % 62.4 44.5 D Neutrophils % (Manual) Band Neuts % (Manual) Lymphocytes % 24.8 39.7 D Lymphocytes % (Manual) Monocytes % 5.6 9.6 Monocytes % (Manual) Eosinophils % 6.4 H 5.7 H Eosinophils % (Manual) Basophils % 0.8 0.5 Hypochromia Platelet Estimate Platelet Comment RBC Morphology Polychromasia Anisocytosis Microcytosis Macrocytosis PT with INR INR PTT (Actin FS) Puncture Site Patient Temperature ABG pH ABG pCO2 at Pt Temp ABG pO2 at Pt Temp ABG HCO3 ABG O2 Sat (Measured) ABG O2 Content ABG Base Excess Demario Test O2 Delivery Device Oxygen Flow Rate Vent Mode Vent Rate Mechanical Rate PEEP Pressure Support Vent Sodium 134 L Potassium 4.0 Chloride 100 Carbon Dioxide 21 Anion Gap 13 BUN 23 H Creatinine 0.7 Creat Clearance w eGFR POC Glucometer Random Glucose 107 H Lactic Acid Calcium 8.6 Phosphorus 2.2 L Magnesium 1.9 Iron TIBC Iron Saturation Transferrin Ferritin Total Bilirubin AST ALT Alkaline Phosphatase Creatine Kinase Troponin I Prot Electrophoresis Serum Total Protein Total Protein Albumin Globulin Albumin/Globulin Ratio Rlgwh-2-Edpvyrxkt Mpprr-2-Zhovhrjha Beta Globulins Gamma Globulins Vitamin B12 Serum Folate TSH Free T4 Free T3 Urine Color Urine Appearance Urine pH Ur Specific Milo Urine Protein Urine Glucose (UA) Urine Ketones Urine Blood Urine Nitrite Urine Bilirubin Urine Urobilinogen Ur Leukocyte Esterase Urine RBC Urine WBC Ur Epithelial Cells Urine Bacteria Hyaline Casts Urine Mucus Stool Occult Blood IgG IgA IgM EVAN M-Breezy EVAN Comments Serum EVAN Interpret Blood Type Antibody Screen Crossmatch 04/30/17 05/01/17 05/01/17 06:20 06:00 06:00 WBC 2.6 L Corrected WBC (auto) RBC 2.77 L Hgb 9.1 L D Hct 25.6 L MCV 92.4 MCH 33.0 MCHC 35.7 RDW 20.4 H Plt Count 126 L MPV 7.3 L Total Counted Neutrophils % 47.6 Neutrophils % (Manual) Band Neuts % (Manual) Lymphocytes % 39.9 Lymphocytes % (Manual) Monocytes % 7.0 Monocytes % (Manual) Eosinophils % 4.6 H Eosinophils % (Manual) Basophils % 0.9 Hypochromia Platelet Estimate Platelet Comment RBC Morphology Polychromasia Anisocytosis Microcytosis Macrocytosis PT with INR INR PTT (Actin FS) Puncture Site Patient Temperature ABG pH ABG pCO2 at Pt Temp ABG pO2 at Pt Temp ABG HCO3 ABG O2 Sat (Measured) ABG O2 Content ABG Base Excess Demario Test O2 Delivery Device Oxygen Flow Rate Vent Mode Vent Rate Mechanical Rate PEEP Pressure Support Vent Sodium 137 139 Potassium 2.6 L* D 3.4 L D Chloride 102 106 Carbon Dioxide 22 22 Anion Gap 13 11 BUN 26 H 33 H D Creatinine 0.7 0.6 Creat Clearance w eGFR POC Glucometer Random Glucose 119 H 110 H Lactic Acid Calcium 8.5 8.4 L Phosphorus 2.5 2.9 Magnesium 1.6 L 2.2 D Iron TIBC Iron Saturation Transferrin Ferritin Total Bilirubin AST ALT Alkaline Phosphatase Creatine Kinase Troponin I Prot Electrophoresis Serum Total Protein Total Protein Albumin Globulin Albumin/Globulin Ratio Ssyke-1-Eykzpdzfa Esyex-7-Uezxzapcn Beta Globulins Gamma Globulins Vitamin B12 Serum Folate TSH Free T4 Free T3 Urine Color Urine Appearance Urine pH Ur Specific Milo Urine Protein Urine Glucose (UA) Urine Ketones Urine Blood Urine Nitrite Urine Bilirubin Urine Urobilinogen Ur Leukocyte Esterase Urine RBC Urine WBC Ur Epithelial Cells Urine Bacteria Hyaline Casts Urine Mucus Stool Occult Blood IgG IgA IgM EVAN M-Breezy EVAN Comments Serum EVAN Interpret Blood Type Antibody Screen Crossmatch 05/03/17 05/03/17 05/03/17 06:50 06:50 06:50 WBC 3.1 L Corrected WBC (auto) RBC 2.75 L Hgb 9.1 L Hct 26.2 L MCV 95.2 MCH 33.2 MCHC 34.9 RDW 21.6 H Plt Count 106 L MPV 7.8 Total Counted Neutrophils % 56.9 Neutrophils % (Manual) Band Neuts % (Manual) Lymphocytes % 35.5 Lymphocytes % (Manual) Monocytes % 3.6 L Monocytes % (Manual) Eosinophils % 3.2 Eosinophils % (Manual) Basophils % 0.8 Hypochromia Platelet Estimate Platelet Comment RBC Morphology Polychromasia Anisocytosis Microcytosis Macrocytosis PT with INR INR PTT (Actin FS) Puncture Site Patient Temperature ABG pH ABG pCO2 at Pt Temp ABG pO2 at Pt Temp ABG HCO3 ABG O2 Sat (Measured) ABG O2 Content ABG Base Excess Demario Test O2 Delivery Device Oxygen Flow Rate Vent Mode Vent Rate Mechanical Rate PEEP Pressure Support Vent Sodium 134 L Potassium 3.9 Chloride 102 Carbon Dioxide 22 Anion Gap 10 BUN 34 H Creatinine 0.8 D Creat Clearance w eGFR > 60 POC Glucometer Random Glucose 129 H Lactic Acid Calcium 8.4 L Phosphorus Magnesium Iron TIBC Iron Saturation Transferrin Ferritin Total Bilirubin 0.5 D AST 37 ALT 55 Alkaline Phosphatase 93 D Creatine Kinase Troponin I Prot Electrophoresis Y Serum Total Protein Y Total Protein 5.6 L Albumin Y 2.6 L Globulin No Result Required. Albumin/Globulin Ratio Y Rvgpk-6-Lxieucsnd Y Ghyeb-3-Uosxgtssn Y Beta Globulins Y Gamma Globulins Y Vitamin B12 Serum Folate TSH Free T4 Free T3 Urine Color Urine Appearance Urine pH Ur Specific Milo Urine Protein Urine Glucose (UA) Urine Ketones Urine Blood Urine Nitrite Urine Bilirubin Urine Urobilinogen Ur Leukocyte Esterase Urine RBC Urine WBC Ur Epithelial Cells Urine Bacteria Hyaline Casts Urine Mucus Stool Occult Blood IgG 819 IgA 153 IgM 49 EVAN M-Breezy Y EVAN Comments Serum EVAN Interpret Blood Type Antibody Screen Crossmatch 05/04/17 05/04/17 05/05/17 07:00 07:00 06:58 WBC 3.3 L 2.8 L Corrected WBC (auto) RBC 2.69 L 2.65 L Hgb 8.9 L 8.9 L Hct 25.8 L 25.4 L MCV 96.2 H 95.9 MCH 33.3 33.6 MCHC 34.6 35.1 RDW 22.2 H 21.4 H Plt Count 147 D 142 MPV 7.7 7.1 L Total Counted Neutrophils % 58.8 58.4 Neutrophils % (Manual) Band Neuts % (Manual) Lymphocytes % 30.5 29.1 Lymphocytes % (Manual) Monocytes % 5.9 6.7 Monocytes % (Manual) Eosinophils % 3.6 5.2 H Eosinophils % (Manual) Basophils % 1.2 0.6 Hypochromia Platelet Estimate Platelet Comment RBC Morphology Polychromasia Anisocytosis Microcytosis Macrocytosis PT with INR INR PTT (Actin FS) Puncture Site Patient Temperature ABG pH ABG pCO2 at Pt Temp ABG pO2 at Pt Temp ABG HCO3 ABG O2 Sat (Measured) ABG O2 Content ABG Base Excess Demario Test O2 Delivery Device Oxygen Flow Rate Vent Mode Vent Rate Mechanical Rate PEEP Pressure Support Vent Sodium 136 Potassium 3.7 Chloride 101 Carbon Dioxide 25 Anion Gap 10 BUN 31 H Creatinine 0.7 Creat Clearance w eGFR > 60 POC Glucometer Random Glucose 124 H Lactic Acid Calcium 8.6 Phosphorus Magnesium Iron TIBC Iron Saturation Transferrin Ferritin Total Bilirubin 0.4 AST 46 H D ALT 67 D Alkaline Phosphatase 93 Creatine Kinase Troponin I Prot Electrophoresis Serum Total Protein Total Protein 6.0 L Albumin 2.6 L Globulin Albumin/Globulin Ratio Qrbro-7-Fbgpiwput Hioct-6-Jfluuaohj Beta Globulins Gamma Globulins Vitamin B12 Serum Folate TSH Free T4 Free T3 Urine Color Urine Appearance Urine pH Ur Specific Milo Urine Protein Urine Glucose (UA) Urine Ketones Urine Blood Urine Nitrite Urine Bilirubin Urine Urobilinogen Ur Leukocyte Esterase Urine RBC Urine WBC Ur Epithelial Cells Urine Bacteria Hyaline Casts Urine Mucus Stool Occult Blood IgG IgA IgM EVAN M-Breezy EVAN Comments Serum EVAN Interpret Blood Type Antibody Screen Crossmatch 1005/06/17 05/06/17 06:58 06:25 06:25 WBC 3.0 L Corrected WBC (auto) RBC 2.59 L Hgb 8.6 L Hct 25.0 L MCV 96.7 H MCH 33.4 MCHC 34.6 RDW 21.3 H Plt Count 157 MPV 7.2 L Total Counted Neutrophils % 55.0 Neutrophils % (Manual) Band Neuts % (Manual) Lymphocytes % 33.5 Lymphocytes % (Manual) Monocytes % 6.6 Monocytes % (Manual) Eosinophils % 4.2 Eosinophils % (Manual) Basophils % 0.7 Hypochromia Platelet Estimate Platelet Comment RBC Morphology Polychromasia Anisocytosis Microcytosis Macrocytosis PT with INR INR PTT (Actin FS) Puncture Site Patient Temperature ABG pH ABG pCO2 at Pt Temp ABG pO2 at Pt Temp ABG HCO3 ABG O2 Sat (Measured) ABG O2 Content ABG Base Excess Demario Test O2 Delivery Device Oxygen Flow Rate Vent Mode Vent Rate Mechanical Rate PEEP Pressure Support Vent Sodium 139 137 Potassium 3.8 3.9 Chloride 102 100 Carbon Dioxide 28 28 Anion Gap 9 9 BUN 26 H 22 H Creatinine 0.8 0.7 Creat Clearance w eGFR POC Glucometer Random Glucose 128 H 123 H Lactic Acid Calcium 8.8 8.7 Phosphorus 3.7 D 3.6 Magnesium 2.0 2.0 Iron TIBC Iron Saturation Transferrin Ferritin Total Bilirubin AST ALT Alkaline Phosphatase Creatine Kinase Troponin I Prot Electrophoresis Serum Total Protein Total Protein Albumin Globulin Albumin/Globulin Ratio Jphzb-0-Nfvojmdon Szipk-8-Fsexvsxvm Beta Globulins Gamma Globulins Vitamin B12 Serum Folate TSH Free T4 Free T3 Urine Color Urine Appearance Urine pH Ur Specific Milo Urine Protein Urine Glucose (UA) Urine Ketones Urine Blood Urine Nitrite Urine Bilirubin Urine Urobilinogen Ur Leukocyte Esterase Urine RBC Urine WBC Ur Epithelial Cells Urine Bacteria Hyaline Casts Urine Mucus Stool Occult Blood IgG IgA IgM EVAN M-Breezy EVAN Comments Serum EVAN Interpret Blood Type Antibody Screen Crossmatch 05/08/17 05/08/17 05/08/17 06:00 06:00 08:45 WBC Cancelled 2.9 L Corrected WBC (auto) Cancelled RBC Cancelled 2.66 L Hgb Cancelled 8.8 L Hct Cancelled 26.0 L MCV Cancelled 97.6 H MCH Cancelled 32.9 MCHC Cancelled 33.8 RDW Cancelled 21.5 H Plt Count Cancelled 172 MPV Cancelled 6.8 L Total Counted 100 Neutrophils % Cancelled No Result Required. Neutrophils % (Manual) 57 D Band Neuts % (Manual) Lymphocytes % Cancelled No Result Required. Lymphocytes % (Manual) 36 D Monocytes % Cancelled Monocytes % (Manual) 4 Eosinophils % Cancelled Eosinophils % (Manual) 3 Basophils % Cancelled Hypochromia 1+ Platelet Estimate Cancelled Adequate Platelet Comment Cancelled No clotting detected RBC Morphology Cancelled Y Polychromasia 1+ Anisocytosis 2+ Microcytosis 1+ Macrocytosis 1+ PT with INR INR PTT (Actin FS) Puncture Site Patient Temperature ABG pH ABG pCO2 at Pt Temp ABG pO2 at Pt Temp ABG HCO3 ABG O2 Sat (Measured) ABG O2 Content ABG Base Excess Demario Test O2 Delivery Device Oxygen Flow Rate Vent Mode Vent Rate Mechanical Rate PEEP Pressure Support Vent Sodium 138 Potassium 4.6 Chloride 97 L Carbon Dioxide 33 H Anion Gap 8 BUN 22 H Creatinine 0.8 Creat Clearance w eGFR POC Glucometer Random Glucose 113 H Lactic Acid Calcium 8.5 Phosphorus 3.8 Magnesium 2.2 Iron TIBC Iron Saturation Transferrin Ferritin Total Bilirubin AST ALT Alkaline Phosphatase Creatine Kinase Troponin I Prot Electrophoresis Serum Total Protein Total Protein Albumin Globulin Albumin/Globulin Ratio Besop-7-Lgkzfosft Uuhut-8-Seddtsikq Beta Globulins Gamma Globulins Vitamin B12 Serum Folate TSH Free T4 Free T3 Urine Color Urine Appearance Urine pH Ur Specific Milo Urine Protein Urine Glucose (UA) Urine Ketones Urine Blood Urine Nitrite Urine Bilirubin Urine Urobilinogen Ur Leukocyte Esterase Urine RBC Urine WBC Ur Epithelial Cells Urine Bacteria Hyaline Casts Urine Mucus Stool Occult Blood IgG IgA IgM EVAN M-Breezy EVAN Comments Serum EVAN Interpret Blood Type Antibody Screen Crossmatch 05/10/17 05/10/17 05/11/17 06:30 06:30 06:50 WBC 2.9 L 3.6 L Corrected WBC (auto) RBC 2.77 L 2.80 L Hgb 9.2 L 9.4 L Hct 26.8 L 27.4 L MCV 97.0 H 97.8 H MCH 33.2 33.7 MCHC 34.2 34.4 RDW 20.9 H 21.0 H Plt Count 180 210 MPV 7.0 L 7.5 Total Counted Neutrophils % 55.8 64.4 Neutrophils % (Manual) Band Neuts % (Manual) Lymphocytes % 33.5 26.2 D Lymphocytes % (Manual) Monocytes % 5.6 5.6 Monocytes % (Manual) Eosinophils % 4.6 H 3.2 Eosinophils % (Manual) Basophils % 0.5 0.6 Hypochromia Platelet Estimate Platelet Comment RBC Morphology Polychromasia Anisocytosis Microcytosis Macrocytosis PT with INR INR PTT (Actin FS) Puncture Site Patient Temperature ABG pH ABG pCO2 at Pt Temp ABG pO2 at Pt Temp ABG HCO3 ABG O2 Sat (Measured) ABG O2 Content ABG Base Excess Demario Test O2 Delivery Device Oxygen Flow Rate Vent Mode Vent Rate Mechanical Rate PEEP Pressure Support Vent Sodium 138 Potassium 4.5 Chloride 98 Carbon Dioxide 33 H Anion Gap 7 L BUN 23 H Creatinine 0.9 Creat Clearance w eGFR > 60 POC Glucometer Random Glucose 119 H Lactic Acid Calcium 8.6 Phosphorus Magnesium Iron TIBC Iron Saturation Transferrin Ferritin Total Bilirubin 0.5 D AST 27 D ALT 68 Alkaline Phosphatase 111 Creatine Kinase Troponin I Prot Electrophoresis Serum Total Protein Total Protein 5.8 L Albumin 2.4 L Globulin Albumin/Globulin Ratio Cqqjm-4-Cdfifixob Fwbbx-1-Vqcllnnlk Beta Globulins Gamma Globulins Vitamin B12 Serum Folate TSH Free T4 Free T3 Urine Color Urine Appearance Urine pH Ur Specific Milo Urine Protein Urine Glucose (UA) Urine Ketones Urine Blood Urine Nitrite Urine Bilirubin Urine Urobilinogen Ur Leukocyte Esterase Urine RBC Urine WBC Ur Epithelial Cells Urine Bacteria Hyaline Casts Urine Mucus Stool Occult Blood IgG IgA IgM EVAN M-Breezy EVAN Comments Serum EVAN Interpret Blood Type Antibody Screen Crossmatch 05/11/17 05/12/17 05/12/17 06:50 01:14 01:35 WBC Corrected WBC (auto) RBC Hgb Hct MCV MCH MCHC RDW Plt Count MPV Total Counted Neutrophils % Neutrophils % (Manual) Band Neuts % (Manual) Lymphocytes % Lymphocytes % (Manual) Monocytes % Monocytes % (Manual) Eosinophils % Eosinophils % (Manual) Basophils % Hypochromia Platelet Estimate Platelet Comment RBC Morphology Polychromasia Anisocytosis Microcytosis Macrocytosis PT with INR INR PTT (Actin FS) Puncture Site Left radial Patient Temperature 99.0 ABG pH 7.30 L ABG pCO2 at Pt Temp 54.1 H ABG pO2 at Pt Temp 272.0 H* ABG HCO3 25.6 ABG O2 Sat (Measured) 100.0 H* ABG O2 Content 15.3 ABG Base Excess -0.7 Demario Test Positive O2 Delivery Device Mech vent Oxygen Flow Rate 100% Vent Mode A/c Vent Rate 20 Mechanical Rate Yes PEEP 5.0 Pressure Support Vent 400 Sodium 137 138 Potassium 4.8 3.9 Chloride 98 98 Carbon Dioxide 32 27 Anion Gap 7 L 13 BUN 24 H 33 H D Creatinine 0.9 1.5 H D Creat Clearance w eGFR 33.41 POC Glucometer Random Glucose 120 H 193 H D Lactic Acid Calcium 8.5 8.9 Phosphorus 4.1 4.8 Magnesium 2.3 2.0 Iron TIBC Iron Saturation Transferrin Ferritin Total Bilirubin 0.7 D AST 22 ALT 54 D Alkaline Phosphatase 123 H Creatine Kinase Troponin I Prot Electrophoresis Serum Total Protein Total Protein 6.8 Albumin 2.8 L Globulin Albumin/Globulin Ratio Gcgue-9-Wziplizdd Pstyv-7-Pflhvoplo Beta Globulins Gamma Globulins Vitamin B12 Serum Folate TSH Free T4 Free T3 Urine Color Urine Appearance Urine pH Ur Specific Milo Urine Protein Urine Glucose (UA) Urine Ketones Urine Blood Urine Nitrite Urine Bilirubin Urine Urobilinogen Ur Leukocyte Esterase Urine RBC Urine WBC Ur Epithelial Cells Urine Bacteria Hyaline Casts Urine Mucus Stool Occult Blood IgG IgA IgM EVAN M-Breezy EVAN Comments Serum EVAN Interpret Blood Type Antibody Screen Crossmatch 05/12/17 05/12/17 05/12/17 01:35 01:35 01:35 WBC Corrected WBC (auto) RBC Hgb Hct MCV MCH MCHC RDW Plt Count MPV Total Counted Neutrophils % Neutrophils % (Manual) Band Neuts % (Manual) Lymphocytes % Lymphocytes % (Manual) Monocytes % Monocytes % (Manual) Eosinophils % Eosinophils % (Manual) Basophils % Hypochromia Platelet Estimate Platelet Comment RBC Morphology Polychromasia Anisocytosis Microcytosis Macrocytosis PT with INR 12.50 H INR 1.11 PTT (Actin FS) 29.7 Puncture Site Patient Temperature ABG pH ABG pCO2 at Pt Temp ABG pO2 at Pt Temp ABG HCO3 ABG O2 Sat (Measured) ABG O2 Content ABG Base Excess Demario Test O2 Delivery Device Oxygen Flow Rate Vent Mode Vent Rate Mechanical Rate PEEP Pressure Support Vent Sodium Potassium Chloride Carbon Dioxide Anion Gap BUN Creatinine Creat Clearance w eGFR POC Glucometer Random Glucose Lactic Acid 5.1 H* Calcium Phosphorus Magnesium Iron TIBC Iron Saturation Transferrin Ferritin Total Bilirubin AST ALT Alkaline Phosphatase Creatine Kinase 65 Troponin I 0.11 H Prot Electrophoresis Serum Total Protein Total Protein Albumin Globulin Albumin/Globulin Ratio Bawco-3-Izospnauo Cgcxu-8-Gbfkgdabe Beta Globulins Gamma Globulins Vitamin B12 Serum Folate TSH Free T4 Free T3 Urine Color Urine Appearance Urine pH Ur Specific Milo Urine Protein Urine Glucose (UA) Urine Ketones Urine Blood Urine Nitrite Urine Bilirubin Urine Urobilinogen Ur Leukocyte Esterase Urine RBC Urine WBC Ur Epithelial Cells Urine Bacteria Hyaline Casts Urine Mucus Stool Occult Blood IgG IgA IgM EVAN M-Breezy EVAN Comments Serum EVAN Interpret Blood Type Antibody Screen Crossmatch 05/12/17 05/12/17 05/12/17 01:35 01:35 06:10 WBC 2.4 L D 2.2 L Corrected WBC (auto) RBC 3.35 L 3.10 L Hgb 11.3 D 10.6 L Hct 33.5 D 31.2 L MCV 100.1 H 100.6 H MCH 33.7 34.1 H MCHC 33.6 33.9 RDW 21.4 H 21.5 H Plt Count 262 D 240 MPV 7.6 7.2 L Total Counted 100 Neutrophils % 89.0 H D No Result Required. Neutrophils % (Manual) 61 Band Neuts % (Manual) 14 H Lymphocytes % 9.4 D No Result Required. Lymphocytes % (Manual) 1 L D Monocytes % 1.0 L D Monocytes % (Manual) Eosinophils % 0.4 D Eosinophils % (Manual) 2 Basophils % 0.2 Hypochromia Platelet Estimate Adequate Platelet Comment RBC Morphology Polychromasia Anisocytosis 2+ 2+ Microcytosis Macrocytosis 2+ 1+ PT with INR INR PTT (Actin FS) Puncture Site Patient Temperature ABG pH ABG pCO2 at Pt Temp ABG pO2 at Pt Temp ABG HCO3 ABG O2 Sat (Measured) ABG O2 Content ABG Base Excess Demario Test O2 Delivery Device Oxygen Flow Rate Vent Mode Vent Rate Mechanical Rate PEEP Pressure Support Vent Sodium Potassium Chloride Carbon Dioxide Anion Gap BUN Creatinine Creat Clearance w eGFR POC Glucometer Random Glucose Lactic Acid Calcium Phosphorus Magnesium Iron TIBC Iron Saturation Transferrin Ferritin Total Bilirubin AST ALT Alkaline Phosphatase Creatine Kinase Troponin I Prot Electrophoresis Serum Total Protein Total Protein Albumin Globulin Albumin/Globulin Ratio Nmdhs-7-Seofsunme Ufhzn-0-Abwwrkjrt Beta Globulins Gamma Globulins Vitamin B12 Serum Folate TSH Free T4 Free T3 Urine Color Shelbi Urine Appearance Turbid Urine pH 5.0 Ur Specific Milo 1.020 Urine Protein 2+ H Urine Glucose (UA) Negative Urine Ketones Negative Urine Blood Negative Urine Nitrite Negative Urine Bilirubin Negative Urine Urobilinogen Negative Ur Leukocyte Esterase 3+ H Urine RBC 4 Urine WBC 1394 Ur Epithelial Cells Urine Bacteria Rare Hyaline Casts 7 Urine Mucus Stool Occult Blood IgG IgA IgM EVAN M-Breezy EVAN Comments Serum EVAN Interpret Blood Type Antibody Screen Crossmatch 05/12/17 05/12/17 05/12/17 06:10 06:10 06:10 WBC Corrected WBC (auto) RBC Hgb Hct MCV MCH MCHC RDW Plt Count MPV Total Counted Neutrophils % Neutrophils % (Manual) Band Neuts % (Manual) Lymphocytes % Lymphocytes % (Manual) Monocytes % Monocytes % (Manual) Eosinophils % Eosinophils % (Manual) Basophils % Hypochromia Platelet Estimate Platelet Comment RBC Morphology Polychromasia Anisocytosis Microcytosis Macrocytosis PT with INR INR PTT (Actin FS) Puncture Site Patient Temperature ABG pH ABG pCO2 at Pt Temp ABG pO2 at Pt Temp ABG HCO3 ABG O2 Sat (Measured) ABG O2 Content ABG Base Excess Demario Test O2 Delivery Device Oxygen Flow Rate Vent Mode Vent Rate Mechanical Rate PEEP Pressure Support Vent Sodium 138 Potassium 3.5 Chloride 104 Carbon Dioxide 23 Anion Gap 11 BUN 35 H Creatinine 1.8 H Creat Clearance w eGFR POC Glucometer Random Glucose 141 H D Lactic Acid 6.5 H* Calcium 8.2 L Phosphorus 4.1 Magnesium 1.8 Iron TIBC Iron Saturation Transferrin Ferritin Total Bilirubin AST ALT Alkaline Phosphatase Creatine Kinase Troponin I 0.14 H Prot Electrophoresis Serum Total Protein Total Protein Albumin Globulin Albumin/Globulin Ratio Ilocs-2-Epjutthjl Ntopu-3-Ggfpseltv Beta Globulins Gamma Globulins Vitamin B12 Serum Folate TSH Free T4 Free T3 Urine Color Urine Appearance Urine pH Ur Specific Milo Urine Protein Urine Glucose (UA) Urine Ketones Urine Blood Urine Nitrite Urine Bilirubin Urine Urobilinogen Ur Leukocyte Esterase Urine RBC Urine WBC Ur Epithelial Cells Urine Bacteria Hyaline Casts Urine Mucus Stool Occult Blood IgG IgA IgM EVAN M-Breezy EVAN Comments Serum EVAN Interpret Blood Type Antibody Screen Crossmatch 05/12/17 08:00 WBC Corrected WBC (auto) RBC Hgb Hct MCV MCH MCHC RDW Plt Count MPV Total Counted Neutrophils % Neutrophils % (Manual) Band Neuts % (Manual) Lymphocytes % Lymphocytes % (Manual) Monocytes % Monocytes % (Manual) Eosinophils % Eosinophils % (Manual) Basophils % Hypochromia Platelet Estimate Platelet Comment RBC Morphology Polychromasia Anisocytosis Microcytosis Macrocytosis PT with INR INR PTT (Actin FS) Puncture Site Patient Temperature ABG pH ABG pCO2 at Pt Temp ABG pO2 at Pt Temp ABG HCO3 ABG O2 Sat (Measured) ABG O2 Content ABG Base Excess Demario Test O2 Delivery Device Oxygen Flow Rate Vent Mode Vent Rate Mechanical Rate PEEP Pressure Support Vent Sodium Potassium Chloride Carbon Dioxide Anion Gap BUN Creatinine Creat Clearance w eGFR POC Glucometer Random Glucose Lactic Acid 7.9 H* Calcium Phosphorus Magnesium Iron TIBC Iron Saturation Transferrin Ferritin Total Bilirubin AST ALT Alkaline Phosphatase Creatine Kinase Troponin I Prot Electrophoresis Serum Total Protein Total Protein Albumin Globulin Albumin/Globulin Ratio Nbiep-5-Qtxmcquuf Fvasy-0-Mbtyrtazb Beta Globulins Gamma Globulins Vitamin B12 Serum Folate TSH Free T4 Free T3 Urine Color Urine Appearance Urine pH Ur Specific Milo Urine Protein Urine Glucose (UA) Urine Ketones Urine Blood Urine Nitrite Urine Bilirubin Urine Urobilinogen Ur Leukocyte Esterase Urine RBC Urine WBC Ur Epithelial Cells Urine Bacteria Hyaline Casts Urine Mucus Stool Occult Blood IgG IgA IgM EVAN M-Breezy EVAN Comments Serum EVAN Interpret Blood Type Antibody Screen Crossmatch Imaging - Results Chest X-ray: Image Reviewed EKG: Image Reviewed (s tachy wnl) Problem List - Problems (1) Acute respiratory failure with hypoxia and hypercapnia Code(s): J96.01 - ACUTE RESPIRATORY FAILURE WITH HYPOXIA J96.02 - ACUTE RESPIRATORY FAILURE WITH HYPERCAPNIA (2) Altered mental status, unspecified Code(s): R41.82 - ALTERED MENTAL STATUS, UNSPECIFIED (3) Anemia Code(s): D64.9 - ANEMIA, UNSPECIFIED Qualifiers: Anemia type: other cause Other causes of anemia: acute posthemorrhagic Qualified Code(s): D62 - Acute posthemorrhagic anemia; D62 - Acute posthemorrhagic anemia (4) Aspiration pneumonia Code(s): J69.0 - PNEUMONITIS DUE TO INHALATION OF FOOD AND VOMIT (5) Dementia Code(s): F03.90 - UNSPECIFIED DEMENTIA WITHOUT BEHAVIORAL DISTURBANCE (6) Fever Code(s): R50.9 - FEVER, UNSPECIFIED (7) Pancytopenia Code(s): D61.818 - OTHER PANCYTOPENIA (8) Shock Code(s): R57.9 - SHOCK, UNSPECIFIED (9) UTI (urinary tract infection) Code(s): N39.0 - URINARY TRACT INFECTION, SITE NOT SPECIFIED (10) Aortic stenosis Code(s): I35.0 - NONRHEUMATIC AORTIC (VALVE) STENOSIS (11) CHF (congestive heart failure) Code(s): I50.9 - HEART FAILURE, UNSPECIFIED Qualifiers: Congestive heart failure type: unspecified congestive heart failure type Congestive heart failure chronicity: chronic Qualified Code(s): I50.9 - Heart failure, unspecified; I50.9 - Heart failure, unspecified; I50.9 - Heart failure, unspecified; I50.9 - Heart failure, unspecified (12) HTN (hypertension) Code(s): I10 - ESSENTIAL (PRIMARY) HYPERTENSION (13) Hypothyroidism Code(s): E03.9 - HYPOTHYROIDISM, UNSPECIFIED (14) Macrocytosis Code(s): D75.89 - OTHER SPECIFIED DISEASES OF BLOOD AND BLOOD-FORMING ORGANS (15) Osteoporosis Code(s): M81.0 - AGE-RELATED OSTEOPOROSIS W/O CURRENT PATHOLOGICAL FRACTURE (16) Paroxysmal SVT (supraventricular tachycardia) Code(s): I47.1 - SUPRAVENTRICULAR TACHYCARDIA (17) Smoking Code(s): F17.200 - NICOTINE DEPENDENCE, UNSPECIFIED, UNCOMPLICATED (18) Smoking addiction Code(s): F17.200 - NICOTINE DEPENDENCE, UNSPECIFIED, UNCOMPLICATED Assessment/Plan septic shock resp failure cad dementia chf ?SVT rx with adenosine (no tracing available for review) Plan Pressors abx echo icu monitoring old records re prior w/u CC time spent 70 min
[2017-05-12 11:12] LABS: ARTERIAL BLD GAS O2 SATURATION 93.9 % (90-98.9); ARTERIAL BLOOD GAS HCO3 17.3 meq/L (22-26); ARTERIAL BLOOD GAS PO2 72.2 mmHg (68-100)
[2017-05-12 11:13] LABS: ALLENS TEST POSITIVE; ART PUNCT SITE LEFT RADIAL; LPM/O2% 60%; PT. ON O2? YES
[2017-05-12 11:14] LABS: MECH. VENT. ESPRIT; TYPE OF O2 OT
[2017-05-12 11:15] LABS: ARTERIAL BLOOD GAS pH 7.29 (7.35-7.45)
[2017-05-12] MEDS ORDERED: SODIUM CHLORIDE 500 ML IV STA (12:09)
--- NOTE | 2017-05-12 12:21 | PN ---
Progress Note, Physician Chief Complaint: Patient now intubated and sedated - Current Medication List Current Medications: Active Medications Acetaminophen (Tylenol Suppository -) 650 mg AR Q4H PRN PRN Reason: FEVER OR PAIN Enoxaparin Sodium (Lovenox -) 30 mg SQ DAILY JOCELYNE Metronidazole (Flagyl 500mg Premixed Ivpb -) 100 mls @ 100 mls/hr IVPB Q8H-IV JOCELYNE Last Admin: 05/12/17 09:25 Dose: 100 mls/hr Propofol (Diprivan -) 100 mls @ 1.551 mls/hr IVPB TITR JOCELYNE; 5 MCG/KG/MIN PRN Reason: Protocol Last Titration: 05/12/17 06:40 Dose: 20 mcg/kg/min Phenylephrine HCl 20,000 mcg/ (Sodium Chloride) 250 mls @ 75 mls/hr IVPB TITR JOCELYNE; 100 MCG/MIN PRN Reason: Protocol Last Admin: 05/12/17 10:30 Dose: 150 mls/hr Fentanyl 500 mcg/ Dextrose 100 mls @ 10 mls/hr IJ TITR JOCELYNE; 50 MCG/HR PRN Reason: Protocol Stop: 05/13/17 05:59 Last Admin: 05/12/17 11:38 Dose: 15 mls/hr Norepinephrine Bitartrate 8, (000 mcg/ Dextrose) 500 mls @ 18.75 mls/hr IV TITR JOCELYNE; 5 MCG/MIN PRN Reason: Protocol Sodium Chloride (Normal Saline -) 500 mls @ 500 mls/hr IV ASDIR STA Stop: 05/12/17 13:08 Levothyroxine Sodium (Synthroid Injection -) 44 mcg IVPUSH DAILY@0700 [facility] Last Admin: 05/12/17 07:39 Dose: 44 mcg Nystatin (Mycostatin Cream -) 1 applic TP BID JOCELYNE Pantoprazole Sodium (Protonix 40mg Ivpb (Pre-Docked)) 40 mg IVPB DAILY [facility] Last Admin: 05/12/17 09:19 Dose: 40 mg - Objective Vital Signs: Vital Signs Temperature 37.0 C 05/12/17 10:00 Pulse Rate 120 H 05/12/17 10:40 Respiratory Rate 14 05/12/17 10:40 Blood Pressure 85/54 05/12/17 10:30 O2 Sat by Pulse Oximetry (%) 94 L 05/12/17 10:40 Constitutional: Yes: Other (sedated) Cardiovascular: Yes: Tachycardia. No: Gallop, Murmur, Rub Respiratory: Yes: Regular, Intubated, Mechanically Ventilated, Rhonchi. No: CTA Bilaterally, Rales, Wheezes Gastrointestinal: Yes: Normal Bowel Sounds, Soft. No: Distention, Tenderness Extremities: Yes: WNL Edema: No Labs: CBC, BMP 05/12/17 06:10 05/12/17 06:10 INR, PTT INR 1.11 (0.82-1.09) 05/12/17 01:35 Problem List - Problems (1) UTI (urinary tract infection) Code(s): N39.0 - URINARY TRACT INFECTION, SITE NOT SPECIFIED (2) Dementia Code(s): F03.90 - UNSPECIFIED DEMENTIA WITHOUT BEHAVIORAL DISTURBANCE (3) Pancytopenia Code(s): D61.818 - OTHER PANCYTOPENIA (4) CHF (congestive heart failure) Code(s): I50.9 - HEART FAILURE, UNSPECIFIED Qualifiers: Congestive heart failure type: unspecified congestive heart failure type Congestive heart failure chronicity: chronic Qualified Code(s): I50.9 - Heart failure, unspecified; I50.9 - Heart failure, unspecified; I50.9 - Heart failure, unspecified; I50.9 - Heart failure, unspecified (5) HTN (hypertension) Code(s): I10 - ESSENTIAL (PRIMARY) HYPERTENSION (6) Hypothyroidism Code(s): E03.9 - HYPOTHYROIDISM, UNSPECIFIED (7) Aspiration pneumonia Code(s): J69.0 - PNEUMONITIS DUE TO INHALATION OF FOOD AND VOMIT (8) Anemia Code(s): D64.9 - ANEMIA, UNSPECIFIED Qualifiers: Anemia type: other cause Other causes of anemia: acute posthemorrhagic Qualified Code(s): D62 - Acute posthemorrhagic anemia; D62 - Acute posthemorrhagic anemia Assessment/Plan (1) Aspiration pneumonia Assessment/Plan: -patient with emesis yesterday -upon seeing, was protecting airway and not hypoxic -suspect aspirated again at night -ID following -placed on vancomycin and zosyn Code(s): N39.0 - URINARY TRACT INFECTION, SITE NOT SPECIFIED (2) Elevated troponins Assessment/Plan: -with elevated troponins -suspect secondary to stress -cardiology following and managing (3) Septic shock Assessment/Plan: -currently now in the ICU -continue antibiotics -requiring pressor support (4) CHF (congestive heart failure) Assessment/Plan: -ECHO reviewed Code(s): I50.9 - HEART FAILURE, UNSPECIFIED Qualifiers: Congestive heart failure type: unspecified congestive heart failure type Congestive heart failure chronicity: chronic Qualified Code(s): I50.9 - Heart failure, unspecified (5) HTN (hypertension) Assessment/Plan: -now hypotensive secondary to septic shock Code(s): I10 - ESSENTIAL (PRIMARY) HYPERTENSION (6) Hypothyroidism Assessment/Plan: -continue IV synthroid Code(s): E03.9 - HYPOTHYROIDISM, UNSPECIFIED (7) Respiratory failure -currently ventilated -pulmonary following (8) Dementia -present and chronic 37 minutes spent in critical care time
[2017-05-12] MEDS ORDERED: NOREPINEPHRINE BITARTRATE 4 MG/4 ML ML IV ONE (12:24)
--- NOTE | 2017-05-12 13:11 | PN ---
Physical Exam: SUBJECTIVE: Patient seen and examined Patient resting in bed, intubated and sedated. febrile overnight t max 102.9 but currently afebrile. On Phenylephrine @ 150 Map 61. Emergency L IJ placed. Given bolus 1 L NS overnight. Still having perfuse diarrhea. Vent a/c 26/400/60% /5/10. O2 sats high 90's. Discussed patients condition with son, he wants her to be Full Code. OBJECTIVE: Vital Signs Period Temp Pulse Resp BP Sys/Damon Pulse Ox Last 24 Hr 98.6 F-102.9 F 102-170 11-34 78-157/47-93 56-100 GENERAL: sedated, intubated HEAD: Normal with no signs of trauma. EYES: pupils pinpoint, reactive to light. ENT: moist mucous membranes. NECK: supple. LUNGS: diffuse crackles HEART: tachy rate and regular rhythm, S1, S2 ABDOMEN: somewhat rigid, nondistended, diffusely reduced bowel sounds, no mass EXTREMITIES: weak radial pulses, warm, no edema. NEUROLOGICAL: unable to assess PSYCH: unable to assess SKIN: Warm, dry Laboratory Results - last 24 hr 05/12/17 05/12/17 05/12/17 01:14 01:35 01:35 WBC RBC Hgb Hct MCV MCH MCHC RDW Plt Count MPV Total Counted Neutrophils % Neutrophils % (Manual) Band Neuts % (Manual) Lymphocytes % Lymphocytes % (Manual) Monocytes % Eosinophils % Eosinophils % (Manual) Basophils % Platelet Estimate Anisocytosis Macrocytosis PT with INR INR PTT (Actin FS) Puncture Site Left radial Patient Temperature 99.0 ABG pH 7.30 L ABG pCO2 at Pt Temp 54.1 H ABG pO2 at Pt Temp 272.0 H* ABG HCO3 25.6 ABG O2 Sat (Measured) 100.0 H* ABG O2 Content 15.3 ABG Base Excess -0.7 Demario Test Positive O2 Delivery Device Mech vent Oxygen Flow Rate 100% Vent Mode A/c Vent Rate 20 Mechanical Rate Yes PEEP 5.0 Pressure Support Vent 400 Sodium 138 Potassium 3.9 Chloride 98 Carbon Dioxide 27 Anion Gap 13 BUN 33 H D Creatinine 1.5 H D Creat Clearance w eGFR 33.41 Random Glucose 193 H D Lactic Acid 5.1 H* Calcium 8.9 Phosphorus 4.8 Magnesium 2.0 Total Bilirubin 0.7 D AST 22 ALT 54 D Alkaline Phosphatase 123 H Creatine Kinase Troponin I Total Protein 6.8 Albumin 2.8 L Urine Color Urine Appearance Urine pH Ur Specific [place] Urine Protein Urine Glucose (UA) Urine Ketones Urine Blood Urine Nitrite Urine Bilirubin Urine Urobilinogen Ur Leukocyte Esterase Urine RBC Urine WBC Urine Bacteria Hyaline Casts 05/12/17 05/12/17 05/12/17 01:35 01:35 01:35 WBC 2.4 L D RBC 3.35 L Hgb 11.3 D Hct 33.5 D MCV 100.1 H MCH 33.7 MCHC 33.6 RDW 21.4 H Plt Count 262 D MPV 7.6 Total Counted Neutrophils % 89.0 H D Neutrophils % (Manual) Band Neuts % (Manual) Lymphocytes % 9.4 D Lymphocytes % (Manual) Monocytes % 1.0 L D Eosinophils % 0.4 D Eosinophils % (Manual) Basophils % 0.2 Platelet Estimate Anisocytosis 2+ Macrocytosis 2+ PT with INR 12.50 H INR 1.11 PTT (Actin FS) 29.7 Puncture Site Patient Temperature ABG pH ABG pCO2 at Pt Temp ABG pO2 at Pt Temp ABG HCO3 ABG O2 Sat (Measured) ABG O2 Content ABG Base Excess Demario Test O2 Delivery Device Oxygen Flow Rate Vent Mode Vent Rate Mechanical Rate PEEP Pressure Support Vent Sodium Potassium Chloride Carbon Dioxide Anion Gap BUN Creatinine Creat Clearance w eGFR Random Glucose Lactic Acid Calcium Phosphorus Magnesium Total Bilirubin AST ALT Alkaline Phosphatase Creatine Kinase 65 Troponin I 0.11 H Total Protein Albumin Urine Color Urine Appearance Urine pH Ur Specific [place] Urine Protein Urine Glucose (UA) Urine Ketones Urine Blood Urine Nitrite Urine Bilirubin Urine Urobilinogen Ur Leukocyte Esterase Urine RBC Urine WBC Urine Bacteria Hyaline Casts 05/12/17 05/12/17 05/12/17 01:35 06:10 06:10 WBC 2.2 L RBC 3.10 L Hgb 10.6 L Hct 31.2 L MCV 100.6 H MCH 34.1 H MCHC 33.9 RDW 21.5 H Plt Count 240 MPV 7.2 L Total Counted 100 Neutrophils % No Result Required. Neutrophils % (Manual) 61 Band Neuts % (Manual) 14 H Lymphocytes % No Result Required. Lymphocytes % (Manual) 1 L D Monocytes % Eosinophils % Eosinophils % (Manual) 2 Basophils % Platelet Estimate Adequate Anisocytosis 2+ Macrocytosis 1+ PT with INR INR PTT (Actin FS) Puncture Site Patient Temperature ABG pH ABG pCO2 at Pt Temp ABG pO2 at Pt Temp ABG HCO3 ABG O2 Sat (Measured) ABG O2 Content ABG Base Excess Demario Test O2 Delivery Device Oxygen Flow Rate Vent Mode Vent Rate Mechanical Rate PEEP Pressure Support Vent Sodium 138 Potassium 3.5 Chloride 104 Carbon Dioxide 23 Anion Gap 11 BUN 35 H Creatinine 1.8 H Creat Clearance w eGFR Random Glucose 141 H D Lactic Acid Calcium 8.2 L Phosphorus 4.1 Magnesium 1.8 Total Bilirubin AST ALT Alkaline Phosphatase Creatine Kinase Troponin I Total Protein Albumin Urine Color [place] Urine Appearance Turbid Urine pH 5.0 Ur Specific [place] 1.020 Urine Protein 2+ H Urine Glucose (UA) Negative Urine Ketones Negative Urine Blood Negative Urine Nitrite Negative Urine Bilirubin Negative Urine Urobilinogen Negative Ur Leukocyte Esterase 3+ H Urine RBC 4 Urine WBC 1394 Urine Bacteria Rare Hyaline Casts 7 05/12/17 05/12/17 05/12/17 06:10 06:10 08:00 WBC RBC Hgb Hct MCV MCH MCHC RDW Plt Count MPV Total Counted Neutrophils % Neutrophils % (Manual) Band Neuts % (Manual) Lymphocytes % Lymphocytes % (Manual) Monocytes % Eosinophils % Eosinophils % (Manual) Basophils % Platelet Estimate Anisocytosis Macrocytosis PT with INR INR PTT (Actin FS) Puncture Site Patient Temperature ABG pH ABG pCO2 at Pt Temp ABG pO2 at Pt Temp ABG HCO3 ABG O2 Sat (Measured) ABG O2 Content ABG Base Excess Demario Test O2 Delivery Device Oxygen Flow Rate Vent Mode Vent Rate Mechanical Rate PEEP Pressure Support Vent Sodium Potassium Chloride Carbon Dioxide Anion Gap BUN Creatinine Creat Clearance w eGFR Random Glucose Lactic Acid 6.5 H* 7.9 H* Calcium Phosphorus Magnesium Total Bilirubin AST ALT Alkaline Phosphatase Creatine Kinase Troponin I 0.14 H Total Protein Albumin Urine Color Urine Appearance Urine pH Ur Specific [place] Urine Protein Urine Glucose (UA) Urine Ketones Urine Blood Urine Nitrite Urine Bilirubin Urine Urobilinogen Ur Leukocyte Esterase Urine RBC Urine WBC Urine Bacteria Hyaline Casts 05/12/17 11:05 WBC RBC Hgb Hct MCV MCH MCHC RDW Plt Count MPV Total Counted Neutrophils % Neutrophils % (Manual) Band Neuts % (Manual) Lymphocytes % Lymphocytes % (Manual) Monocytes % Eosinophils % Eosinophils % (Manual) Basophils % Platelet Estimate Anisocytosis Macrocytosis PT with INR INR PTT (Actin FS) Puncture Site Left radial Patient Temperature ABG pH 7.29 L ABG pCO2 at Pt Temp 36.8 D ABG pO2 at Pt Temp 72.2 D ABG HCO3 17.3 L ABG O2 Sat (Measured) 93.9 ABG O2 Content 10.9 L ABG Base Excess -8.0 L Demario Test Positive O2 Delivery Device Ot Oxygen Flow Rate 60% Vent Mode Cpap psv +8 Vent Rate Mechanical Rate Esprit PEEP 5.0 Pressure Support Vent Sodium Potassium Chloride Carbon Dioxide Anion Gap BUN Creatinine Creat Clearance w eGFR Random Glucose Lactic Acid Calcium Phosphorus Magnesium Total Bilirubin AST ALT Alkaline Phosphatase Creatine Kinase Troponin I Total Protein Albumin Urine Color Urine Appearance Urine pH Ur Specific [place] Urine Protein Urine Glucose (UA) Urine Ketones Urine Blood Urine Nitrite Urine Bilirubin Urine Urobilinogen Ur Leukocyte Esterase Urine RBC Urine WBC Urine Bacteria Hyaline Casts Active Medications Generic Name Dose Route Start Last Admin Trade Name Freq PRN Reason Stop Dose Admin Acetaminophen 650 mg 05/12/17 01:59 Tylenol Suppository - [place] Q4H PRN FEVER OR PAIN Enoxaparin Sodium 30 mg 05/12/17 13:00 Lovenox - SQ DAILY JOCELYNE Metronidazole 100 mls @ 100 mls/hr 05/12/17 02:00 05/12/17 09:25 Flagyl 500mg Premixed Ivpb - IVPB 100 mls/hr Q8H-IV JOCELYNE Administration Propofol 100 mls @ 1.551 mls/hr 05/12/17 01:59 05/12/17 06:40 Diprivan - IVPB 20 mcg/kg/min TITR JOCELYNE Titration Protocol 5 MCG/KG/MIN Phenylephrine HCl 20,000 mcg/ 250 mls @ 75 mls/hr 05/12/17 01:59 05/12/17 10:30 Sodium Chloride IVPB 150 mls/hr TITR JOCELYNE Administration Protocol 100 MCG/MIN Fentanyl 500 mcg/ Dextrose 100 mls @ 10 mls/hr 05/12/17 06:00 05/12/17 11:38 IJ 05/13/17 05:59 15 mls/hr TITR JOCELYNE Administration Protocol 50 MCG/HR Norepinephrine Bitartrate 8, 500 mls @ 18.75 mls/hr 05/12/17 12:45 000 mcg/ Dextrose IV TITR JOCELYNE Protocol 5 MCG/MIN Levothyroxine Sodium 44 mcg 05/12/17 07:00 05/12/17 07:39 Synthroid Injection - IVPUSH 44 mcg DAILY@0700 JOCELYNE Administration Nystatin 1 applic 05/12/17 10:00 Mycostatin Cream - TP BID [facility] Pantoprazole Sodium 40 mg 05/12/17 10:00 05/12/17 09:19 Protonix 40mg Ivpb (Pre-Docked) IVPB 40 mg DAILY JOCELYNE Administration ASSESSMENT/PLAN: This is an 82 yo F with PMH of heavy smoking and likely COPD, CAD s/p stent, CHF , hypothyroidism, who presented with with failure to thrive, and altered mental status, has been diagnosed with dysphagia and uti (completed zosyn), transferred to ICU s/p RR due to acute hypoxic respiratory failure and witnessed aspiration, SVT and septic shock. ID *Septic shock -fluid unresponsive, unable to bolus 30cc/kg due to concurrent cardiac issues -possible sources include Pulmonary (HCAP), , GI (c diff stool antigen p/d) -L IJ placed and levophend started goal MAP >65 -consider adding vasopressin and hydrocortisone if needed -cautious fluid bolus goal CVP 8/12 -strict I and O -IV tylenol for fever *lactic acidosis 6.5; trend -Abx coverage per ID (currently cefepime, vanco, flagyl) -f/u cultures Neuro -continue sedation for vent synchronization -propofol @ 20 -fentanyl @ 75 *dementia -Chronic lacunar strokes on CT Pulm *Acute hypoxic respoiratory failure in setting of probable COPD and acute aspiration -Vent settings changed to CPAP 60% PSV 8; f/u repeat abg -daily weaning trials once stable *Suspected HCAP -covered with cefepime, vanco, flagyl -CXR unimpressive for obvious infiltrate -daily CXR CV *Hypotension due to septic shock -management as described above *History CHF, CAD s/p stent -f/u TTE *elevated troponin 0.11 -due to demand ischemia -trend GI *severe diarrhea -r/o c diff -abx coverage -contact precautions *dysphagia -previous discussion about PEG with family *EGD/PEG per gI ongoing discusions regarding goals of care with family *possible pancreatic echogenicity -outpatient w/u when stable *TAMIE -likely pre renal due to shock -roper; monitor U/O (currently <.5 cc /kg) -if no improvement seen with pressors, consider low dose dopamine Heme *Pancytopenia -Heme on case -wnl Fe studies,B12,folate -flow 0.2% blasts, clonal B cells, nonspecific immunophenotype -suspicion of onc process FEN 500 CC bolus NS CVP goal 8-12 monitor lytes npo Zachary, ppi Dispo: follow in ICU Problem List - Problems (1) Acute respiratory failure with hypoxia and hypercapnia Code(s): J96.01 - ACUTE RESPIRATORY FAILURE WITH HYPOXIA J96.02 - ACUTE RESPIRATORY FAILURE WITH HYPERCAPNIA (2) Altered mental status, unspecified Code(s): R41.82 - ALTERED MENTAL STATUS, UNSPECIFIED (3) Anemia Code(s): D64.9 - ANEMIA, UNSPECIFIED Qualifiers: Anemia type: other cause Other causes of anemia: acute posthemorrhagic Qualified Code(s): D62 - Acute posthemorrhagic anemia; D62 - Acute posthemorrhagic anemia (4) Aspiration pneumonia Code(s): J69.0 - PNEUMONITIS DUE TO INHALATION OF FOOD AND VOMIT (5) Dementia Code(s): F03.90 - UNSPECIFIED DEMENTIA WITHOUT BEHAVIORAL DISTURBANCE (6) Fever Code(s): R50.9 - FEVER, UNSPECIFIED (7) Pancytopenia Code(s): D61.818 - OTHER PANCYTOPENIA (8) Shock Code(s): R57.9 - SHOCK, UNSPECIFIED (9) UTI (urinary tract infection) Code(s): N39.0 - URINARY TRACT INFECTION, SITE NOT SPECIFIED (10) Aortic stenosis Code(s): I35.0 - NONRHEUMATIC AORTIC (VALVE) STENOSIS (11) CHF (congestive heart failure) Code(s): I50.9 - HEART FAILURE, UNSPECIFIED Qualifiers: Congestive heart failure type: unspecified congestive heart failure type Congestive heart failure chronicity: chronic Qualified Code(s): I50.9 - Heart failure, unspecified; I50.9 - Heart failure, unspecified; I50.9 - Heart failure, unspecified; I50.9 - Heart failure, unspecified (12) HTN (hypertension) Code(s): I10 - ESSENTIAL (PRIMARY) HYPERTENSION (13) Hypothyroidism Code(s): E03.9 - HYPOTHYROIDISM, UNSPECIFIED (14) Macrocytosis Code(s): D75.89 - OTHER SPECIFIED DISEASES OF BLOOD AND BLOOD-FORMING ORGANS (15) Osteoporosis Code(s): M81.0 - AGE-RELATED OSTEOPOROSIS W/O CURRENT PATHOLOGICAL FRACTURE (16) Paroxysmal SVT (supraventricular tachycardia) Code(s): I47.1 - SUPRAVENTRICULAR TACHYCARDIA (17) Smoking Code(s): F17.200 - NICOTINE DEPENDENCE, UNSPECIFIED, UNCOMPLICATED Visit type - Emergency Visit Emergency Visit: Yes ED Registration Date: 04/01/17 Care time: The patient presented to the Emergency Department on the above date and was hospitalized for further evaluation of their emergent condition. - New Patient This patient is new to me today: Yes Date on this admission: 05/12/17 - Critical Care Critical Care patient: Yes Total Critical Care Time (in minutes): 35 Critical Care Statement: The care of this patient involved high complexity decision making to prevent further life threatening deterioration of the patient 's condition and/or to evaluate & treat vital organ system(s) failure or risk of failure. - Discharge Referral Referred to [facility] Med [facility] No
[2017-05-12] MEDS ORDERED: ACETAMINOPHEN 1000 MG/100 ML VIAL (NON FORMULARY) IVPB PRN (13:24)
--- NOTE | 2017-05-12 13:53 | PN ---
Repeat PE for Septic Shock - Vital Signs Vital Signs: Vital Signs Temperature 98.6 F 05/12/17 10:00 Pulse Rate 102 H 05/12/17 12:00 Respiratory Rate 11 L 05/12/17 12:00 Blood Pressure 96/47 05/12/17 12:00 O2 Sat by Pulse Oximetry (%) 94 L 05/12/17 10:40 I have reviewed the most recent vital signs: Yes - PE CV for Spetic Shock: Regular Rhythm, S1, S2 Lungs: Crackles (diffuse ) Vascular: Left Radial: 1+, Right Radial: 1+ Capillary Refill: <3 seconds Skin exam: Pale Sepsis - query Please clarify if the patient meets the sepsis for criteria: Septic Shock ( patient unresponsive to fluid, still requiring pressors.)
[2017-05-12] MEDS ORDERED: VASOPRESSIN 20 UNITS/ML VIAL IV ONE (14:06)
--- NOTE | 2017-05-12 14:13 | PROC ---
<DinorahdiegoMonica johnsonOmer - Last Filed: 05/12/17 13:53> Central Line Insertion Indication: Poor Venous Access, Sepsis Risks and Benefits Explained: No (Emergent/septic shock) Consent on Chart: No Central Line: Triple Lumen Catheter Anesthesia: 1% Lidocaine Sterile Technique: Yes Ultrasound Guided Assistance: Yes Position: Left Internal Jugular (R EJ in place. L IJ pt under U/S) Post Insertion: Yes: Bilateral Breath Sounds, Bilateral Chest Expansion, Chest X-Ray Ordered Sterile Dressing Applied: Yes Remarks: Pt sedated, intubated. <Oscar Lopez MD - Last Filed: 05/12/17 15:21> Procedure Note Procedure: I supervised and was present during the entire procedure. Oscar Lopez MD
[2017-05-12] MEDS: NOREPINEPHRINE BITARTRATE 8,000 MCG in DEXTROSE 5%-WATER - 492 ML IV SCH (14:50)
[2017-05-12] MEDS: VASOPRESSIN 50 UNITS in SODIUM CHLORIDE 97.5 ML IVPB SCH (14:52)
[2017-05-12] MEDS: HYDROCORTISONE SOD SUCCINATE 100 MG/2 ML VIAL IVPUSH SCH ×2 (14:57→23:00)
[2017-05-12] MEDS: ENOXAPARIN NA (PORCINE) 30 MG/0.3 ML DISP.SYRIN SQ SCH (14:57)
--- NOTE | 2017-05-12 15:24 | PN ---
Progress Note, Physician History of Present Illness: events noted from yesterday patient had vomiting probably aspiration was txed to icu went into resp distress was intubated on pressors - Current Medication List Current Medications: Active Medications Acetaminophen (Ofirmev Injection -) 1,000 mg IVPB Q6H PRN PRN Reason: FEVER OR PAIN Stop: 05/13/17 07:25 Enoxaparin Sodium (Lovenox -) 30 mg SQ DAILY JOCELYNE Last Admin: 05/12/17 14:57 Dose: 30 mg Hydrocortisone Sodium Succinate (Solu-Cortef -) 100 mg IVPUSH Q8H JOCELYNE Last Admin: 05/12/17 14:57 Dose: 100 mg Metronidazole (Flagyl 500mg Premixed Ivpb -) 100 mls @ 100 mls/hr IVPB Q8H-IV JOCELYNE Last Admin: 05/12/17 09:25 Dose: 100 mls/hr Propofol (Diprivan -) 100 mls @ 1.551 mls/hr IVPB TITR JOCELYNE; 5 MCG/KG/MIN PRN Reason: Protocol Last Titration: 05/12/17 06:40 Dose: 20 mcg/kg/min Phenylephrine HCl 20,000 mcg/ (Sodium Chloride) 250 mls @ 75 mls/hr IVPB TITR JOCELYNE; 100 MCG/MIN PRN Reason: Protocol Last Admin: 05/12/17 10:30 Dose: 150 mls/hr Fentanyl 500 mcg/ Dextrose 100 mls @ 10 mls/hr IJ TITR JOCELYNE; 50 MCG/HR PRN Reason: Protocol Stop: 05/13/17 05:59 Last Admin: 05/12/17 11:38 Dose: 15 mls/hr Norepinephrine Bitartrate 8, (000 mcg/ Dextrose) 500 mls @ 18.75 mls/hr IV TITR JOCELYNE; 5 MCG/MIN PRN Reason: Protocol Last Admin: 05/12/17 14:50 Dose: 18.75 mls/hr Vasopressin 50 units/ Sodium (Chloride) 100 mls @ 4 mls/hr IVPB ASDIR JOCELYNE; 2 UNITS/HR PRN Reason: Protocol Last Admin: 05/12/17 14:52 Dose: 4 mls/hr Cefepime HCl 2 gm/ Dextrose 100 mls @ 200 mls/hr IVPB ONCE ONE Stop: 05/13/17 00:24 Sodium Chloride (Normal Saline -) 1,000 mls @ 1,000 mls/hr IV ASDIR STA Stop: 05/12/17 16:07 Levothyroxine Sodium (Synthroid Injection -) 44 mcg IVPUSH DAILY@0700 [facility] Last Admin: 05/12/17 07:39 Dose: 44 mcg Nystatin (Mycostatin Cream -) 1 applic TP BID [facility] Last Admin: 05/12/17 14:48 Dose: 1 applic Pantoprazole Sodium (Protonix 40mg Ivpb (Pre-Docked)) 40 mg IVPB DAILY [facility] Last Admin: 05/12/17 09:19 Dose: 40 mg - Objective Vital Signs: Vital Signs Temperature 98.6 F 05/12/17 10:00 Pulse Rate 102 H 05/12/17 14:52 Respiratory Rate 20 05/12/17 14:51 Blood Pressure 96/47 05/12/17 14:52 O2 Sat by Pulse Oximetry (%) 94 L 05/12/17 10:40 Constitutional: Yes: No Distress, Calm Cardiovascular: Yes: Regular Rate and Rhythm Respiratory: Yes: Intubated, Mechanically Ventilated Gastrointestinal: Yes: Normal Bowel Sounds, Soft, Other (ng in place) Musculoskeletal: Yes: WNL Extremities: Yes: WNL Neurological: Yes: Alert, Oriented Psychiatric: Yes: Alert, Oriented Labs: CBC, BMP 05/12/17 06:10 05/12/17 06:10 INR, PTT INR 1.11 (0.82-1.09) 05/12/17 01:35 Assessment/Plan Problem List - Problems (1) UTI (urinary tract infection) Code(s): N39.0 - URINARY TRACT INFECTION, SITE NOT SPECIFIED (2) Dementia Code(s): F03.90 - UNSPECIFIED DEMENTIA WITHOUT BEHAVIORAL DISTURBANCE (3) Pancytopenia Code(s): D61.818 - OTHER PANCYTOPENIA (4) CHF (congestive heart failure) Code(s): I50.9 - HEART FAILURE, UNSPECIFIED Qualifiers: Congestive heart failure type: unspecified congestive heart failure type Congestive heart failure chronicity: chronic Qualified Code(s): I50.9 - Heart failure, unspecified (5) HTN (hypertension) Code(s): I10 - ESSENTIAL (PRIMARY) HYPERTENSION (6) Hypothyroidism Code(s): E03.9 - HYPOTHYROIDISM, UNSPECIFIED Aspiration pneumonia Code(s): J69.0 - PNEUMONITIS DUE TO INHALATION OF FOOD AND VOMIT lactic acidosis plan continue current mgmt abx suctioning nutrition monitor h and [place] and electrolytes rest as per icu await for all cx report cc time 40 min
[2017-05-12] MEDS ORDERED: PT OWN MED DRAWER 7, Y5N ONE ×2 (16:51→22:59)
[2017-05-12] MEDS: PIPERACILLIN/TAZOB 2.25 GM 50 ML IVPB SCH ×2 (18:24→22:57)
[2017-05-12] MEDS: MUPIROCIN 2% TOPICAL OINTMENT FOR DECOLONIZATION NS SCH (23:00)
[2017-05-12 23:30] LABS: ALLENS TEST POSITIVE; ART PUNCT SITE LEFT RADIAL; ARTERIAL BLOOD GAS BASE EXCESS -9.5 meq/l (-2-2); LPM/O2% 100%; PT. ON O2? YES
[2017-05-12 23:31] LABS: ARTERIAL BLOOD GAS pH 7.26 (7.35-7.45); MECH. VENT. YES; PT'S TEMP 101.3; TYPE OF O2 MECH VENT; VENT RATE 20; VT/PRESS 400
[2017-05-12 23:32] LABS: ARTERIAL BLOOD GAS HCO3 15.9 meq/L (22-26)
[2017-05-12] MEDS ORDERED: CEFEPIME 2 GM in DEXTROSE 5%-WATER - 100 ML IVPB ONE (23:55)
[2017-05-12] MEDS ORDERED: CEFEPIME HCL 2 GM VIAL (RESTRICTED TO ID) IVPB ONE (23:55)
[2017-05-13] MEDS ORDERED: NOREPINEPHRINE BITARTRATE 4 MG/4 ML ML IV ONE ×2 (01:01→11:59)
[2017-05-13] MEDS: METRONIDAZOLE 500 MG PREMIXED 100 ML IVPB SCH ×3 (02:11→17:17)
[2017-05-13] MEDS: PIPERACILLIN/TAZOB 2.25 GM 50 ML IVPB SCH ×4 (02:12→20:45)
[2017-05-13] MEDS: PROPOFOL 100 ML IVPB SCH (02:12)
[2017-05-13] MEDS: FENTANYL INJECTION 500 MCG in DEXTROSE 5%-WATER - 90 ML IJ SCH (02:13)
[2017-05-13] MEDS ORDERED: PROPOFOL 100 ML ONE (02:48)
[2017-05-13] MEDS: LEVOTHYROXINE SODIUM 100 MCG VIAL IVPUSH SCH (06:25)
[2017-05-13 06:26] LABS: MCH 34.8 pg (25.7-33.7); MCHC 34.3 g/dl (32.0-36.0); MEAN CELL VOLUME 101.4 fl (80-96); MEAN PLT VOLUME 7.8 fl (7.5-11.1); PLATELET COUNT 153 K/MM3 (134-434); WHITE BLOOD COUNT 4.6 K/mm3 (4.0-10.0)
[2017-05-13] MEDS: HYDROCORTISONE SOD SUCCINATE 100 MG/2 ML VIAL IVPUSH SCH ×3 (06:31→21:15)
[2017-05-13 07:08] LABS: NEUTROPHILS 93.2 % (42.8-82.8)
[2017-05-13 07:09] LABS: ALBUMIN 1.7 g/dl (3.4-5.0); ALK PHOS 71 U/L (45-117); ANION GAP 16 (8-16); BASOPHIL 0.2 % (0-2.0); CO2 16 mmol/L (21-32); CREATININE 2.1 mg/dL (0.55-1.02); GLUCOSE,RANDOM 127 mg/dL (74-106); MAGNESIUM 1.7 mg/dL (1.8-2.4); PLATELET ESTIMATE ADEQUATE (NORMAL); SGOT/AST 50 U/L (15-37); SGPT/ALT 42 U/L (12-78); TOT PROT 4.5 g/dl (6.4-8.2)
[2017-05-13 07:31] LABS: CALCIUM 6.5 mg/dL (8.5-10.1)
--- NOTE | 2017-05-13 07:33 | PN ---
Progress Note, Physician Chief Complaint: Pt remains intubated; sedated. 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 Patient is poorhistorian so her son at bedside was complementing the interview. According to him she has fallen 5 times in the last 3-4 months despite her use of a walker. She hit her head two weeks prior during one of the falls but did not seek attention. She did not lose consciousness during that fall. She describes the falls as "my legs giving out" which is corroborated by her son who witnessed one of the events. The son claims that she also has had difficulty keep track of time and with short term memory. Her memory issues are worsened at night. She lives at home alone and has had trouble with her ADLs. She is not on blood thinners. She has also had decreased food intake over the past few months although she has only lost a few pounds. She was seen by her PCP Dr. Mitchell earlier today and then sent to the ED for admission for altered mental status. Denies fevers, chills, nausea, vomiting, diarrhea, constipation, urinary symptoms, visual changes, headaches, presyncopal sensation, or palpitations. Her PCP is Dr. Mitchell. - Current Medication List Current Medications: Active Medications Chlorhexidine Gluconate (Hibiclens For Decolonization -) 1 applic TP HS [facility] Enoxaparin Sodium (Lovenox -) 30 mg SQ DAILY [facility] Last Admin: 05/12/17 14:57 Dose: 30 mg Hydrocortisone Sodium Succinate (Solu-Cortef -) 100 mg IVPUSH Q8H [facility] Last Admin: 05/13/17 06:31 Dose: 100 mg Metronidazole (Flagyl 500mg Premixed Ivpb -) 100 mls @ 100 mls/hr IVPB Q8H-IV [facility] Last Admin: 05/13/17 02:11 Dose: 100 mls/hr Propofol (Diprivan -) 100 mls @ 1.551 mls/hr IVPB TITR [facility]; 5 MCG/KG/MIN PRN Reason: Protocol Last Admin: 05/13/17 02:12 Dose: 10.859 mls/hr Norepinephrine Bitartrate 8, (000 mcg/ Dextrose) 500 mls @ 18.75 mls/hr IV TITR [facility]; 5 MCG/MIN PRN Reason: Protocol Last Titration: 05/12/17 23:30 Dose: 15 mcg/min Vasopressin 50 units/ Sodium (Chloride) 100 mls @ 4 mls/hr IVPB ASDIR [facility]; 2 UNITS/HR PRN Reason: Protocol Last Admin: 05/12/17 14:52 Dose: 4 mls/hr Piperacillin/Tazobactam/Dextrose (Zosyn 2.25gm Ivpb (Premix)) 50 mls @ 100 mls/ hr IVPB Q6H-IV [facility] PRN Reason: Protocol Last Admin: 05/13/17 02:12 Dose: 100 mls/hr Levothyroxine Sodium (Synthroid Injection -) 44 mcg IVPUSH DAILY@0700 [facility] Last Admin: 05/13/17 06:25 Dose: 44 mcg Mupirocin (Bactroban Ointment (For Decolonization) -) 1 applic NS BID [facility] Stop: 05/17/17 22:59 Last Admin: 05/12/17 23:00 Dose: 1 applic Nystatin (Mycostatin Cream -) 1 applic TP BID [facility] Last Admin: 05/12/17 23:01 Dose: 1 applic Pantoprazole Sodium (Protonix 40mg Ivpb (Pre-Docked)) 40 mg IVPB DAILY [facility] Last Admin: 05/12/17 09:19 Dose: 40 mg - Objective Vital Signs: Vital Signs Temperature 98.9 F 05/13/17 06:00 Pulse Rate 116 H 05/13/17 06:00 Respiratory Rate 24 05/13/17 06:37 Blood Pressure 117/68 05/13/17 06:00 O2 Sat by Pulse Oximetry (%) 94 L 05/12/17 20:35 Constitutional: Yes: Thin Neck: Yes: Decreased ROM Respiratory: Yes: Diminished Gastrointestinal: Yes: Soft Genitourinary: No: Anuria Musculoskeletal: Yes: Muscle Weakness Extremities: Yes: Cool Edema: No Peripheral Pulses WNL: No Peripheral Pulses: Left Doralis Pedis: 1+, Right Dorsalis Pedis: 1+ Integumentary: Yes: WNL Neurological: Yes: Unresponsive (presently sedated.) Psychiatric: Yes: Other (dementia; altered mental status on admission) Labs: CBC, BMP 05/13/17 05:10 05/13/17 05:10 INR, PTT INR 1.11 (0.82-1.09) 05/12/17 01:35 Abnormal Lab Results 05/12/17 05/12/17 05/12/17 01:35 06:10 06:10 WBC 2.2 L RBC 3.10 L Hgb 10.6 L Hct 31.2 L MCV 100.6 H MCH 34.1 H RDW 21.5 H MPV 7.2 L Neutrophils % Band Neuts % (Manual) 14 H Lymphocytes % Lymphocytes % (Manual) 1 L D Monocytes % ABG pH ABG pO2 at Pt Temp ABG HCO3 ABG O2 Sat (Measured) ABG O2 Content ABG Base Excess Carbon Dioxide BUN Creatinine Random Glucose Lactic Acid Calcium Phosphorus Magnesium AST Troponin I 0.14 H Total Protein Albumin Urine Protein 2+ H Ur Leukocyte Esterase 3+ H 05/12/17 05/12/17 05/12/17 08:00 11:05 12:45 WBC RBC Hgb Hct MCV MCH RDW MPV Neutrophils % Band Neuts % (Manual) Lymphocytes % Lymphocytes % (Manual) Monocytes % ABG pH 7.29 L ABG pO2 at Pt Temp ABG HCO3 17.3 L ABG O2 Sat (Measured) ABG O2 Content 10.9 L ABG Base Excess -8.0 L Carbon Dioxide BUN Creatinine Random Glucose Lactic Acid 7.9 H* Calcium Phosphorus Magnesium AST Troponin I 0.18 H Total Protein Albumin Urine Protein Ur Leukocyte Esterase 05/12/17 05/12/17 05/12/17 17:00 17:00 23:15 WBC RBC Hgb Hct MCV MCH RDW MPV Neutrophils % Band Neuts % (Manual) Lymphocytes % Lymphocytes % (Manual) Monocytes % ABG pH 7.26 L ABG pO2 at Pt Temp 242.0 H* D ABG HCO3 15.9 L ABG O2 Sat (Measured) 100.0 H* ABG O2 Content 13.5 L ABG Base Excess -9.5 L Carbon Dioxide BUN Creatinine Random Glucose Lactic Acid 4.5 H* Calcium Phosphorus Magnesium AST Troponin I 0.22 H Total Protein Albumin Urine Protein Ur Leukocyte Esterase 05/13/17 05/13/17 05/13/17 05:10 05:10 05:10 WBC RBC 2.37 L D Hgb 8.3 L D Hct 24.0 L D MCV 101.4 H MCH 34.8 H RDW 22.0 H MPV Neutrophils % 93.2 H Band Neuts % (Manual) Lymphocytes % 4.3 L D Lymphocytes % (Manual) Monocytes % 1.3 L ABG pH ABG pO2 at Pt Temp ABG HCO3 ABG O2 Sat (Measured) ABG O2 Content ABG Base Excess Carbon Dioxide 16 L D BUN 46 H D Creatinine 2.1 H Random Glucose 127 H Lactic Acid 4.7 H* Calcium 6.5 L* D Phosphorus 6.0 H D Magnesium 1.7 L AST 50 H D Troponin I Total Protein 4.5 L D Albumin 1.7 L D Urine Protein Ur Leukocyte Esterase 05/13/17 07:50 WBC RBC Hgb Hct MCV MCH RDW MPV Neutrophils % Band Neuts % (Manual) Lymphocytes % Lymphocytes % (Manual) Monocytes % ABG pH 7.23 L* ABG pO2 at Pt Temp 156.0 H* D ABG HCO3 14.3 L* ABG O2 Sat (Measured) 99.6 H* ABG O2 Content 11.9 L ABG Base Excess -11.9 L* Carbon Dioxide BUN Creatinine Random Glucose Lactic Acid Calcium Phosphorus Magnesium AST Troponin I Total Protein Albumin Urine Protein Ur Leukocyte Esterase - ....Imaging Chest X-ray: Image Reviewed (infiltarte and effusion with mild improvement) Problem List - Problems (1) Acute respiratory failure with hypoxia and hypercapnia Code(s): J96.01 - ACUTE RESPIRATORY FAILURE WITH HYPOXIA J96.02 - ACUTE RESPIRATORY FAILURE WITH HYPERCAPNIA (2) Altered mental status, unspecified Code(s): R41.82 - ALTERED MENTAL STATUS, UNSPECIFIED (3) Anemia Code(s): D64.9 - ANEMIA, UNSPECIFIED Qualifiers: Anemia type: other cause Other causes of anemia: acute posthemorrhagic Qualified Code(s): D62 - Acute posthemorrhagic anemia; D62 - Acute posthemorrhagic anemia (4) Aspiration pneumonia Code(s): J69.0 - PNEUMONITIS DUE TO INHALATION OF FOOD AND VOMIT (5) Dementia Code(s): F03.90 - UNSPECIFIED DEMENTIA WITHOUT BEHAVIORAL DISTURBANCE (6) Fever Code(s): R50.9 - FEVER, UNSPECIFIED (7) Pancytopenia Code(s): D61.818 - OTHER PANCYTOPENIA (8) Shock Assessment/Plan: On pressors and fluid; antibiotics. Code(s): R57.9 - SHOCK, UNSPECIFIED (9) UTI (urinary tract infection) Code(s): N39.0 - URINARY TRACT INFECTION, SITE NOT SPECIFIED (10) HTN (hypertension) Code(s): I10 - ESSENTIAL (PRIMARY) HYPERTENSION (11) Hypothyroidism Code(s): E03.9 - HYPOTHYROIDISM, UNSPECIFIED (12) Osteoporosis Code(s): M81.0 - AGE-RELATED OSTEOPOROSIS W/O CURRENT PATHOLOGICAL FRACTURE (13) Smoking Code(s): F17.200 - NICOTINE DEPENDENCE, UNSPECIFIED, UNCOMPLICATED (14) Acute on chronic systolic (congestive) heart failure Assessment/Plan: ECHO: mildly reduced LVEF; mild MR; moderate TR; mild AR; trivial pericardial effusion. presently on pressors. F/u BUN/Cr, electrolytes, Is and Os, weight. Avoid excessive dehyration. W/u regarding anemia. Code(s): I50.23 - ACUTE ON CHRONIC SYSTOLIC (CONGESTIVE) HEART FAILURE (15) Sinus tachycardia Assessment/Plan: likely multifactorial: periodic fever; anemia; septic shock; intubation; ?pain. Code(s): R00.0 - TACHYCARDIA, UNSPECIFIED (16) Hypomagnesemia Assessment/Plan: replete; keep level 2-2.3. Code(s): E83.42 - HYPOMAGNESEMIA
[2017-05-13 07:54] LABS: ARTERIAL BLD GAS O2 SATURATION 99.6 % (90-98.9); ARTERIAL BLOOD GAS BASE EXCESS -11.9 meq/l (-2-2)
[2017-05-13 07:55] LABS: ALLENS TEST POSITIVE; ART PUNCT SITE LEFT RADIAL; LPM/O2% 60%; MECH. VENT. ESPRIT; PT. ON O2? YES; TYPE OF O2 MEC.VENT; VENT RATE 24; VT/PRESS 400
[2017-05-13 07:56] LABS: ARTERIAL BLOOD GAS pH 7.23 (7.35-7.45)
[2017-05-13 07:57] LABS: ARTERIAL BLOOD GAS HCO3 14.3 meq/L (22-26)
[2017-05-13] MEDS ORDERED: VASOPRESSIN 20 UNITS/ML VIAL IV ONE (08:05)
[2017-05-13] MEDS ORDERED: MAGNESIUM SULF 50% (8.12 MEQ/2 ML-1 GM VIAL) IVPB ONE ×2 (08:32→09:00)
[2017-05-13 09:14] LABS: CHOLESTEROL 73 mg/dL (50-200)
[2017-05-13] MEDS: MUPIROCIN 2% TOPICAL OINTMENT FOR DECOLONIZATION NS SCH ×2 (10:11→21:13)
[2017-05-13] MEDS: ENOXAPARIN NA (PORCINE) 30 MG/0.3 ML DISP.SYRIN SQ SCH (10:12)
[2017-05-13] MEDS: NYSTATIN 100,000 UNIT/GM TOPICAL CREAM 15 GM TUBE TP SCH ×2 (10:14→21:15)
[2017-05-13] MEDS: PANTOPRAZOLE SODIUM 40 MG/100 ML PRE-DOCKED IVPB SCH (10:15)
--- NOTE | 2017-05-13 11:04 | PN ---
Progress Note, Physician Chief Complaint: Unable to obtain - Current Medication List Current Medications: Active Medications Chlorhexidine Gluconate (Hibiclens For Decolonization -) 1 applic TP HS [facility] Enoxaparin Sodium (Lovenox -) 30 mg SQ DAILY [facility] Last Admin: 05/13/17 10:12 Dose: 30 mg Hydrocortisone Sodium Succinate (Solu-Cortef -) 100 mg IVPUSH Q8H [facility] Last Admin: 05/13/17 06:31 Dose: 100 mg Metronidazole (Flagyl 500mg Premixed Ivpb -) 100 mls @ 100 mls/hr IVPB Q8H-IV [facility] Last Admin: 05/13/17 10:11 Dose: 100 mls/hr Propofol (Diprivan -) 100 mls @ 1.551 mls/hr IVPB TITR [facility]; 5 MCG/KG/MIN PRN Reason: Protocol Last Admin: 05/13/17 02:12 Dose: 10.859 mls/hr Norepinephrine Bitartrate 8, (000 mcg/ Dextrose) 500 mls @ 18.75 mls/hr IV TITR [facility]; 5 MCG/MIN PRN Reason: Protocol Last Titration: 05/12/17 23:30 Dose: 15 mcg/min Vasopressin 50 units/ Sodium (Chloride) 100 mls @ 4 mls/hr IVPB ASDIR [facility]; 2 UNITS/HR PRN Reason: Protocol Last Admin: 05/12/17 14:52 Dose: 4 mls/hr Piperacillin/Tazobactam/Dextrose (Zosyn 2.25gm Ivpb (Premix)) 50 mls @ 100 mls/ hr IVPB Q6H-IV [facility] PRN Reason: Protocol Last Admin: 05/13/17 10:10 Dose: 100 mls/hr Levothyroxine Sodium (Synthroid Injection -) 44 mcg IVPUSH DAILY@0700 [facility] Last Admin: 05/13/17 06:25 Dose: 44 mcg Mupirocin (Bactroban Ointment (For Decolonization) -) 1 applic NS BID [facility] Stop: 05/17/17 22:59 Last Admin: 05/13/17 10:11 Dose: 1 applic Nystatin (Mycostatin Cream -) 1 applic TP BID [facility] Last Admin: 05/13/17 10:14 Dose: 1 applic Pantoprazole Sodium (Protonix 40mg Ivpb (Pre-Docked)) 40 mg IVPB DAILY [facility] Last Admin: 05/13/17 10:15 Dose: 40 mg - Objective Vital Signs: Vital Signs Temperature 37.1 C 05/13/17 10:00 Pulse Rate 112 H 05/13/17 10:34 Respiratory Rate 28 H 05/13/17 10:34 Blood Pressure 75/54 05/13/17 10:00 O2 Sat by Pulse Oximetry (%) 100 05/13/17 10:34 Constitutional: Yes: No Distress, Calm, Thin, Other (sedated) Cardiovascular: Yes: Tachycardia. No: Gallop, Murmur, Rub Respiratory: Yes: Intubated, Mechanically Ventilated, Rhonchi. No: Rales, Wheezes Gastrointestinal: Yes: Normal Bowel Sounds, Soft. No: Distention, Tenderness Extremities: Yes: Other (mottling) Edema: No Labs: CBC, BMP 05/13/17 05:10 05/13/17 05:10 INR, PTT INR 1.11 (0.82-1.09) 05/12/17 01:35 Problem List - Problems (1) UTI (urinary tract infection) Code(s): N39.0 - URINARY TRACT INFECTION, SITE NOT SPECIFIED (2) Dementia Code(s): F03.90 - UNSPECIFIED DEMENTIA WITHOUT BEHAVIORAL DISTURBANCE (3) Pancytopenia Code(s): D61.818 - OTHER PANCYTOPENIA (4) CHF (congestive heart failure) Code(s): I50.9 - HEART FAILURE, UNSPECIFIED Qualifiers: Congestive heart failure type: unspecified congestive heart failure type Congestive heart failure chronicity: chronic Qualified Code(s): I50.9 - Heart failure, unspecified; I50.9 - Heart failure, unspecified; I50.9 - Heart failure, unspecified; I50.9 - Heart failure, unspecified (5) HTN (hypertension) Code(s): I10 - ESSENTIAL (PRIMARY) HYPERTENSION (6) Hypothyroidism Code(s): E03.9 - HYPOTHYROIDISM, UNSPECIFIED (7) Aspiration pneumonia Code(s): J69.0 - PNEUMONITIS DUE TO INHALATION OF FOOD AND VOMIT (8) Anemia Code(s): D64.9 - ANEMIA, UNSPECIFIED Qualifiers: Anemia type: other cause Other causes of anemia: acute posthemorrhagic Qualified Code(s): D62 - Acute posthemorrhagic anemia; D62 - Acute posthemorrhagic anemia (9) Septic shock Code(s): A41.9 - SEPSIS, UNSPECIFIED ORGANISM R65.21 - SEVERE SEPSIS WITH SEPTIC SHOCK (10) Acute respiratory failure Code(s): J96.00 - ACUTE RESPIRATORY FAILURE, UNSP W HYPOXIA OR HYPERCAPNIA Assessment/Plan (1) Aspiration pneumonia Assessment/Plan: -ID following and appreciate assistance -continue zosyn and flagyl Code(s): N39.0 - URINARY TRACT INFECTION, SITE NOT SPECIFIED (2) Elevated troponins Assessment/Plan: -with elevated troponins -suspect secondary to stress -cardiology following and managing (3) Septic shock Assessment/Plan: -may be secondary to UTI -continue ventilator support -continue pressors (4) CHF (congestive heart failure) Assessment/Plan: -ECHO reviewed Code(s): I50.9 - HEART FAILURE, UNSPECIFIED Qualifiers: Congestive heart failure type: unspecified congestive heart failure type Congestive heart failure chronicity: chronic Qualified Code(s): I50.9 - Heart failure, unspecified (5) HTN (hypertension) Assessment/Plan: -now hypotensive secondary to septic shock Code(s): I10 - ESSENTIAL (PRIMARY) HYPERTENSION (6) Hypothyroidism Assessment/Plan: -continue IV synthroid Code(s): E03.9 - HYPOTHYROIDISM, UNSPECIFIED (7) Respiratory failure -currently ventilated -pulmonary following (8) Dementia -present and chronic (9) UTI -follow up cultures -continue antibiotics as above 34 minutes spent in critical care time
[2017-05-13] MEDS: VASOPRESSIN 50 UNITS in SODIUM CHLORIDE 97.5 ML IVPB SCH (11:55)
--- NOTE | 2017-05-13 12:56 | PN ---
Teaching Attending Note Name of Resident: Omer Castro ATTENDING PHYSICIAN STATEMENT I saw and evaluated the patient. I reviewed the resident's note and discussed the case with the resident. I agree with the resident's findings and plan as documented. SUBJECTIVE: Patient seen and examined in the ICU. Intubated and sedated. NE and Vaso for hemodynamic support. Worsening TAMIE and metabolic acidosis. AC mode of vent. No further SVT overnight. Intake & Output 05/10/17 05/11/17 05/12/17 05/13/17 23:59 23:59 23:59 23:59 Intake Total 0726 667 7605 1634.4 Output Total 850 500 Balance 3083 798 0847 1134.4 Weight 106 lb 0.677 oz Last Vital Signs Temp Pulse Resp BP Pulse Ox 98.8 F 106 H 26 H 79/55 100 05/13/17 10:00 05/13/17 12:00 05/13/17 14:37 05/13/17 12:00 05/13/17 10:34 Active Medications Chlorhexidine Gluconate (Hibiclens For Decolonization -) 1 applic TP HS [facility] Enoxaparin Sodium (Lovenox -) 30 mg SQ DAILY [facility] Last Admin: 05/13/17 10:12 Dose: 30 mg Hydrocortisone Sodium Succinate (Solu-Cortef -) 100 mg IVPUSH Q8H [facility] Last Admin: 05/13/17 06:31 Dose: 100 mg Metronidazole (Flagyl 500mg Premixed Ivpb -) 100 mls @ 100 mls/hr IVPB Q8H-IV [facility] Last Admin: 05/13/17 10:11 Dose: 100 mls/hr Propofol (Diprivan -) 100 mls @ 1.551 mls/hr IVPB TITR [facility]; 5 MCG/KG/MIN PRN Reason: Protocol Last Admin: 05/13/17 02:12 Dose: 10.859 mls/hr Norepinephrine Bitartrate 8, (000 mcg/ Dextrose) 500 mls @ 18.75 mls/hr IV TITR [facility]; 5 MCG/MIN PRN Reason: Protocol Last Titration: 05/12/17 23:30 Dose: 15 mcg/min Piperacillin/Tazobactam/Dextrose (Zosyn 2.25gm Ivpb (Premix)) 50 mls @ 100 mls/ hr IVPB Q6H-IV [facility] PRN Reason: Protocol Last Admin: 05/13/17 10:10 Dose: 100 mls/hr Levothyroxine Sodium (Synthroid Injection -) 44 mcg IVPUSH DAILY@0700 [facility] Last Admin: 05/13/17 06:25 Dose: 44 mcg Mupirocin (Bactroban Ointment (For Decolonization) -) 1 applic NS BID [facility] Stop: 05/17/17 22:59 Last Admin: 05/13/17 10:11 Dose: 1 applic Nystatin (Mycostatin Cream -) 1 applic TP BID [facility] Last Admin: 05/13/17 10:14 Dose: 1 applic Pantoprazole Sodium (Protonix 40mg Ivpb (Pre-Docked)) 40 mg IVPB DAILY [facility] Last Admin: 05/13/17 10:15 Dose: 40 mg Constitutional: Yes: Intubated and sedated, mottling noticed Eyes: Yes: PERRL Cardiovascular: Yes: Tachycardia, S1, S2 Respiratory: Yes: Intubated, Mechanically Ventilated, Rhonchi Gastrointestinal: Yes: Normal Bowel Sounds, Soft, Hyperactive Bowel Sounds Edema: No Integumentary: Yes: Other (Excoriated skin perineal area) Neurological: Yes: Unresponsive Labs: Laboratory Results - last 24 hr 05/12/17 05/12/17 05/12/17 17:00 17:00 23:15 WBC RBC Hgb Hct MCV MCH MCHC RDW Plt Count MPV Neutrophils % Lymphocytes % Monocytes % Eosinophils % Basophils % Platelet Estimate Puncture Site Left radial Patient Temperature 101.3 ABG pH 7.26 L ABG pCO2 at Pt Temp 37.7 ABG pO2 at Pt Temp 242.0 H* D ABG HCO3 15.9 L ABG O2 Sat (Measured) 100.0 H* ABG O2 Content 13.5 L ABG Base Excess -9.5 L Demario Test Positive O2 Delivery Device Mech vent Oxygen Flow Rate 100% Vent Mode A/c Vent Rate 20 Mechanical Rate Yes PEEP 8.0 Pressure Support Vent 400 Sodium Potassium Chloride Carbon Dioxide Anion Gap BUN Creatinine Creat Clearance w eGFR Random Glucose Lactic Acid 4.5 H* Calcium Phosphorus Magnesium Total Bilirubin AST ALT Alkaline Phosphatase Troponin I 0.22 H Total Protein Albumin Triglycerides Cholesterol Total LDL Cholesterol HDL Cholesterol 05/13/17 05/13/17 05/13/17 05:10 05:10 05:10 WBC 4.6 D RBC 2.37 L D Hgb 8.3 L D Hct 24.0 L D MCV 101.4 H MCH 34.8 H MCHC 34.3 RDW 22.0 H Plt Count 153 D MPV 7.8 Neutrophils % 93.2 H Lymphocytes % 4.3 L D Monocytes % 1.3 L Eosinophils % 1.0 D Basophils % 0.2 Platelet Estimate Adequate Puncture Site Patient Temperature ABG pH ABG pCO2 at Pt Temp ABG pO2 at Pt Temp ABG HCO3 ABG O2 Sat (Measured) ABG O2 Content ABG Base Excess Demario Test O2 Delivery Device Oxygen Flow Rate Vent Mode Vent Rate Mechanical Rate PEEP Pressure Support Vent Sodium 138 Potassium 4.0 Chloride 106 Carbon Dioxide 16 L D Anion Gap 16 BUN 46 H D Creatinine 2.1 H Creat Clearance w eGFR 22.66 Random Glucose 127 H Lactic Acid 4.7 H* Calcium 6.5 L* D Phosphorus 6.0 H D Magnesium 1.7 L Total Bilirubin 1.0 D AST 50 H D ALT 42 D Alkaline Phosphatase 71 D Troponin I Total Protein 4.5 L D Albumin 1.7 L D Triglycerides Cholesterol Total LDL Cholesterol HDL Cholesterol 05/13/17 05/13/17 05/13/17 05:10 05:10 07:50 WBC RBC Hgb Hct MCV MCH MCHC RDW Plt Count MPV Neutrophils % Lymphocytes % Monocytes % Eosinophils % Basophils % Platelet Estimate Puncture Site Left radial Patient Temperature ABG pH 7.23 L* ABG pCO2 at Pt Temp 35.5 ABG pO2 at Pt Temp 156.0 H* D ABG HCO3 14.3 L* ABG O2 Sat (Measured) 99.6 H* ABG O2 Content 11.9 L ABG Base Excess -11.9 L* Demario Test Positive O2 Delivery Device Mec.vent Oxygen Flow Rate 60% Vent Mode A/c Vent Rate 24 Mechanical Rate Esprit PEEP 8.0 Pressure Support Vent 400 Sodium Potassium Chloride Carbon Dioxide Anion Gap BUN Creatinine Creat Clearance w eGFR Random Glucose Lactic Acid Calcium Phosphorus Magnesium Total Bilirubin AST ALT Alkaline Phosphatase Troponin I 0.23 H Total Protein Albumin Triglycerides 165 H Cholesterol 73 Total LDL Cholesterol 15 HDL Cholesterol 30 L Problem List - Problems (1) Altered mental status, unspecified Code(s): R41.82 - ALTERED MENTAL STATUS, UNSPECIFIED (2) Aspiration pneumonia Code(s): J69.0 - PNEUMONITIS DUE TO INHALATION OF FOOD AND VOMIT (3) Dementia Code(s): F03.90 - UNSPECIFIED DEMENTIA WITHOUT BEHAVIORAL DISTURBANCE (4) Acute respiratory failure with hypoxia and hypercapnia Code(s): J96.01 - ACUTE RESPIRATORY FAILURE WITH HYPOXIA J96.02 - ACUTE RESPIRATORY FAILURE WITH HYPERCAPNIA (5) Pancytopenia Code(s): D61.818 - OTHER PANCYTOPENIA (6) CHF (congestive heart failure) Code(s): I50.9 - HEART FAILURE, UNSPECIFIED Qualifiers: Congestive heart failure type: unspecified congestive heart failure type Congestive heart failure chronicity: chronic Qualified Code(s): I50.9 - Heart failure, unspecified; I50.9 - Heart failure, unspecified; I50.9 - Heart failure, unspecified; I50.9 - Heart failure, unspecified (7) Hypothyroidism Code(s): E03.9 - HYPOTHYROIDISM, UNSPECIFIED (8) Paroxysmal SVT (supraventricular tachycardia) Code(s): I47.1 - SUPRAVENTRICULAR TACHYCARDIA (9) Shock Code(s): R57.9 - SHOCK, UNSPECIFIED Assessment/Plan Wean pressors Sedation vacation AC Mode of vent -> not a candidate ABX coverage Strict I&O Follow ABG Follow CXR Overall prognosis appears grave given frail state and failure to thrive, continue GOC discussions with family Dr Melgar Critical care time spent in reviewing chart, evaluating patient and formulating plan - 36 minutes.
[2017-05-13] MEDS: NOREPINEPHRINE BITARTRATE 8,000 MCG in DEXTROSE 5%-WATER - 492 ML IV SCH (16:04)
[2017-05-13] MEDS ORDERED: SODIUM CHLORIDE 1,000 ML IV STA (16:34)
--- NOTE | 2017-05-13 16:56 | PN ---
Physical Exam: SUBJECTIVE: No acute events overnight. Patient n bed, intubated, and sedated. On Norepinephrine 10.67 and Vasopressin 2 U with MAP consistently above 60. Patient on AC 24/400/60%/5 with O2 sats high 90-100. Per patient son status is full code. OBJECTIVE: Vital Signs Period Temp Pulse Resp BP Sys/Damon Pulse Ox Last 24 Hr 98.8 F-101.1 F 95-121 14-28 75-119/50-68 94-100 GENERAL: The patient is sedated, intubated, and in no acute distress. HEAD: Normal with no signs of trauma. EYES: PERRL, sclera anicteric, + conjunctiva pallor ENT: Ears normal, nares patent, oropharynx clear without exudates, moist mucous membranes. NECK: Trachea midline, full range of motion, supple. LUNGS: Breath sounds coarse bilaterally, no accessory muscle use. HEART: Increased rate and regular rhythm, S1, S2 without murmur, rub or gallop. ABDOMEN: Soft, nontender, nondistended, normoactive bowel sounds, no guarding, no rebound, no hepatosplenomegaly, no masses. EXTREMITIES: 1+ pulses, skin is cold, clammy and diffuse mottling observed. NEUROLOGICAL: cannot ass. Laboratory Results - last 24 hr 05/12/17 05/12/17 05/12/17 17:00 17:00 23:15 WBC RBC Hgb Hct MCV MCH MCHC RDW Plt Count MPV Neutrophils % Lymphocytes % Monocytes % Eosinophils % Basophils % Platelet Estimate Puncture Site Left radial Patient Temperature 101.3 ABG pH 7.26 L ABG pCO2 at Pt Temp 37.7 ABG pO2 at Pt Temp 242.0 H* D ABG HCO3 15.9 L ABG O2 Sat (Measured) 100.0 H* ABG O2 Content 13.5 L ABG Base Excess -9.5 L Demario Test Positive O2 Delivery Device Mech vent Oxygen Flow Rate 100% Vent Mode A/c Vent Rate 20 Mechanical Rate Yes PEEP 8.0 Pressure Support Vent 400 Sodium Potassium Chloride Carbon Dioxide Anion Gap BUN Creatinine Creat Clearance w eGFR Random Glucose Lactic Acid 4.5 H* Calcium Phosphorus Magnesium Total Bilirubin AST ALT Alkaline Phosphatase Troponin I 0.22 H Total Protein Albumin Triglycerides Cholesterol Total LDL Cholesterol HDL Cholesterol 05/13/17 05/13/17 05/13/17 05:10 05:10 05:10 WBC 4.6 D RBC 2.37 L D Hgb 8.3 L D Hct 24.0 L D MCV 101.4 H MCH 34.8 H MCHC 34.3 RDW 22.0 H Plt Count 153 D MPV 7.8 Neutrophils % 93.2 H Lymphocytes % 4.3 L D Monocytes % 1.3 L Eosinophils % 1.0 D Basophils % 0.2 Platelet Estimate Adequate Puncture Site Patient Temperature ABG pH ABG pCO2 at Pt Temp ABG pO2 at Pt Temp ABG HCO3 ABG O2 Sat (Measured) ABG O2 Content ABG Base Excess Demario Test O2 Delivery Device Oxygen Flow Rate Vent Mode Vent Rate Mechanical Rate PEEP Pressure Support Vent Sodium 138 Potassium 4.0 Chloride 106 Carbon Dioxide 16 L D Anion Gap 16 BUN 46 H D Creatinine 2.1 H Creat Clearance w eGFR 22.66 Random Glucose 127 H Lactic Acid 4.7 H* Calcium 6.5 L* D Phosphorus 6.0 H D Magnesium 1.7 L Total Bilirubin 1.0 D AST 50 H D ALT 42 D Alkaline Phosphatase 71 D Troponin I Total Protein 4.5 L D Albumin 1.7 L D Triglycerides Cholesterol Total LDL Cholesterol HDL Cholesterol 05/13/17 05/13/17 05/13/17 05:10 05:10 07:50 WBC RBC Hgb Hct MCV MCH MCHC RDW Plt Count MPV Neutrophils % Lymphocytes % Monocytes % Eosinophils % Basophils % Platelet Estimate Puncture Site Left radial Patient Temperature ABG pH 7.23 L* ABG pCO2 at Pt Temp 35.5 ABG pO2 at Pt Temp 156.0 H* D ABG HCO3 14.3 L* ABG O2 Sat (Measured) 99.6 H* ABG O2 Content 11.9 L ABG Base Excess -11.9 L* Demario Test Positive O2 Delivery Device Mec.vent Oxygen Flow Rate 60% Vent Mode A/c Vent Rate 24 Mechanical Rate Esprit PEEP 8.0 Pressure Support Vent 400 Sodium Potassium Chloride Carbon Dioxide Anion Gap BUN Creatinine Creat Clearance w eGFR Random Glucose Lactic Acid Calcium Phosphorus Magnesium Total Bilirubin AST ALT Alkaline Phosphatase Troponin I 0.23 H Total Protein Albumin Triglycerides 165 H Cholesterol 73 Total LDL Cholesterol 15 HDL Cholesterol 30 L Active Medications Generic Name Dose Route Start Last Admin Trade Name Freq PRN Reason Stop Dose Admin Chlorhexidine Gluconate 1 applic 05/13/17 22:00 Hibiclens For Decolonization - TP HS JOCELYNE Enoxaparin Sodium 30 mg 05/12/17 13:00 05/13/17 10:12 Lovenox - SQ 30 mg DAILY JOCELYNE Administration Hydrocortisone Sodium Succinate 100 mg 05/12/17 14:15 05/13/17 15:49 Solu-Cortef - IVPUSH 100 mg Q8H JOCELYNE Administration Metronidazole 100 mls @ 100 mls/hr 05/12/17 02:00 05/13/17 10:11 Flagyl 500mg Premixed Ivpb - IVPB 100 mls/hr Q8H-IV JOCELYNE Administration Propofol 100 mls @ 1.551 mls/hr 05/12/17 01:59 05/13/17 02:12 Diprivan - IVPB 10.859 mls/hr TITR JOCELYNE Administration Protocol 5 MCG/KG/MIN Norepinephrine Bitartrate 8, 500 mls @ 18.75 mls/hr 05/12/17 12:45 05/13/17 16: 04 000 mcg/ Dextrose IV 40 mls/hr TITR JOCELYNE Administration Protocol 5 MCG/MIN Piperacillin/Tazobactam/Dextrose 50 mls @ 100 mls/hr 05/12/17 15:30 05/13/17 10 :10 Zosyn 2.25gm Ivpb (Premix) IVPB 100 mls/hr Q6H-IV JOCELYNE Administration Protocol Dopamine HCl/Dextrose 250 mls @ 5.411 mls/hr 05/13/17 16:30 Dopamine 400 Mg/D5w - IVPB TITR JOCELYNE Protocol 3 MCG/KG/MIN Sodium Chloride 1,000 mls @ 250 mls/hr 05/13/17 16:34 Normal Saline - IV 05/13/17 20:33 ASDIR STA Levothyroxine Sodium 44 mcg 05/12/17 07:00 05/13/17 06:25 Synthroid Injection - IVPUSH 44 mcg DAILY@0700 JOCELYNE Administration Mupirocin 1 applic 05/12/17 23:00 05/13/17 10:11 Bactroban Ointment (For Decolonization) - NS 05/17/17 22:59 1 applic BID JOCELYNE Administration Nystatin 1 applic 05/12/17 10:00 05/13/17 10:14 Mycostatin Cream - TP 1 applic BID JOCELYNE Administration Pantoprazole Sodium 40 mg 05/12/17 10:00 05/13/17 10:15 Protonix 40mg Ivpb (Pre-Docked) IVPB 40 mg DAILY JOCELYNE Administration ASSESSMENT/PLAN: 82 yo F h/o CAD s/p stent, CHF, suspected COPD, dementia, and hypothyroidism, who presented w/ altered mentation and failure to thrive, and recent dx. of dysphagia and UTI who was transferred to ICU s/p rapid response 2/2 acute hypoxic respiratory failure and aspiration, septic shock, and SVT. Neurology: sedated and intubated H/o dementia presented with AMS in setting of 45 day hospitalization and infectious process CT head reveals chronic microvascular ischemic changes/lacunr strokes. Plan: -continue vent 24/400/60%/5 -Propofol 5 mcg/kg/min -D/c fentanyl Cardiac: H/o CAD s/p stent -F/u TTE Hypotension: 2/2 septic shock Elevated Troponin Trop 0.11-->0.23 Most likely 2/2 demand ischemia Plan: - Trend Troponins Pulmonary: Acute hypoxic respiratory failure: most likely 2/2 aspiration pneumonitis -H/o COPD -CXR: retrocardiac atelectasis vs infiltrate Plan: - Cont vent settings 24/400/60%/5 HCAP: Low suspicion -Cont zosyn, flagyl -CXR QD Infectious Disease: Septic shock: 2/2 HCAP vs UTI vs GI Pt. is fluid unresponsive in setting of cardiac disease. Initial bolus attempts unsuccessful. L IJ placed with levophed started WBC 2.4-->4.6 lactic acid 7.9-->4.5-->4.7 (downtrending) Blood cx: NGTD Urine Cx: S. Vridians with Stool Cx: Pending C.dif undetectable CXR: Absent evidence of infiltrate Plan: - Maintain MAP >65 - Cont Norepineprhine - Cont Dopamine - D/c Vasopressin - NS fluid bolus with CVP 8-12 - Hydrocortisone 100 mg IVP - Strict I/O - Trend lactic acid - Cont Zosyn - Cont Flagyl - F/u Urine sensitives. GI: Diarrhea C.dif undetectable Plan: -Cont Zosyn -Cont Flagyl -Contact precautions EGD/PEG ongoing discussions regarding GOC w/ family-son. : TAMIE: Most likely prerenal 2/2 shock Cr baseline 0.9 Cr 1.5-->2.1 Urine Cx: S. viridians Plan: - Strict I/O. - Mainatin UOP >0.5cc/kg/hr - Maintain roper - CMP QD - F/u Urine sensitivities Heme/Onc: Pancytopenia -Heme following -Fe studies,B12,folate wnl -suspicion of oncologic process Plan: - CBC QD FEN: NS 250 mls/hr CVP goal 8-12, lytes PRN, NPO PPx: Pantaprazole 40 mg, Lovenox 30 mg SQ Dispo: ICU monitoring Visit type - Emergency Visit Emergency Visit: Yes ED Registration Date: 04/01/17 Care time: The patient presented to the Emergency Department on the above date and was hospitalized for further evaluation of their emergent condition. - New Patient This patient is new to me today: Yes Date on this admission: 05/13/17 - Critical Care Critical Care patient: Yes Total Critical Care Time (in minutes): 35 Critical Care Statement: The care of this patient involved high complexity decision making to prevent further life threatening deterioration of the patient 's condition and/or to evaluate & treat vital organ system(s) failure or risk of failure.
[2017-05-13] MEDS ORDERED: DOPAMINE 400 MG/D5W - 250 ML IVPB ONE (16:57)
[2017-05-13] MEDS: DOPAMINE 400 MG/D5W - 250 ML IVPB SCH (17:04)
--- NOTE | 2017-05-13 17:37 | PN ---
Progress Note, Physician History of Present Illness: patient continues to be intubated no specific changes renal fn deteriorating wbc has increased - Current Medication List Current Medications: Active Medications Chlorhexidine Gluconate (Hibiclens For Decolonization -) 1 applic TP HS JOCELYNE Enoxaparin Sodium (Lovenox -) 30 mg SQ DAILY [facility] Last Admin: 05/13/17 10:12 Dose: 30 mg Hydrocortisone Sodium Succinate (Solu-Cortef -) 100 mg IVPUSH Q8H JOCELYNE Last Admin: 05/13/17 15:49 Dose: 100 mg Metronidazole (Flagyl 500mg Premixed Ivpb -) 100 mls @ 100 mls/hr IVPB Q8H-IV JOCELYNE Last Admin: 05/13/17 17:17 Dose: 100 mls/hr Propofol (Diprivan -) 100 mls @ 1.551 mls/hr IVPB TITR JOCELYNE; 5 MCG/KG/MIN PRN Reason: Protocol Last Admin: 05/13/17 02:12 Dose: 10.859 mls/hr Norepinephrine Bitartrate 8, (000 mcg/ Dextrose) 500 mls @ 18.75 mls/hr IV TITR JOCELYNE; 5 MCG/MIN PRN Reason: Protocol Last Admin: 05/13/17 16:04 Dose: 40 mls/hr Piperacillin/Tazobactam/Dextrose (Zosyn 2.25gm Ivpb (Premix)) 50 mls @ 100 mls/ hr IVPB Q6H-IV JOCELYNE PRN Reason: Protocol Last Admin: 05/13/17 17:11 Dose: 100 mls/hr Dopamine HCl/Dextrose (Dopamine 400 Mg/D5w -) 250 mls @ 5.411 mls/hr IVPB TITR JOCELYNE; 3 MCG/KG/MIN PRN Reason: Protocol Last Admin: 05/13/17 17:04 Dose: 5.411 mls/hr Sodium Chloride (Normal Saline -) 1,000 mls @ 250 mls/hr IV ASDIR STA Stop: 05/13/17 20:33 Last Admin: 05/13/17 17:02 Dose: 250 mls/hr Levothyroxine Sodium (Synthroid Injection -) 44 mcg IVPUSH DAILY@0700 [facility] Last Admin: 05/13/17 06:25 Dose: 44 mcg Mupirocin (Bactroban Ointment (For Decolonization) -) 1 applic NS BID [facility] Stop: 05/17/17 22:59 Last Admin: 05/13/17 10:11 Dose: 1 applic Nystatin (Mycostatin Cream -) 1 applic TP BID [facility] Last Admin: 05/13/17 10:14 Dose: 1 applic Pantoprazole Sodium (Protonix 40mg Ivpb (Pre-Docked)) 40 mg IVPB DAILY [facility] Last Admin: 05/13/17 10:15 Dose: 40 mg - Objective Vital Signs: Vital Signs Temperature 98.9 F 05/13/17 14:00 Pulse Rate 110 H 05/13/17 16:04 Respiratory Rate 24 05/13/17 17:33 Blood Pressure 119/63 05/13/17 16:04 O2 Sat by Pulse Oximetry (%) 100 05/13/17 10:34 Constitutional: Yes: Other Cardiovascular: Yes: Regular Rate and Rhythm Respiratory: Yes: Intubated, Mechanically Ventilated Gastrointestinal: Yes: Normal Bowel Sounds, Soft Musculoskeletal: Yes: Other Extremities: Yes: Other Wound/Incision: Yes: Other (skin buttocks red) Neurological: Yes: Other Labs: CBC, BMP 05/13/17 05:10 05/13/17 05:10 INR, PTT INR 1.11 (0.82-1.09) 05/12/17 01:35 - ....Imaging X-ray: Report Reviewed, Image Reviewed Assessment/Plan Problem List - Problems (1) UTI (urinary tract infection) Code(s): N39.0 - URINARY TRACT INFECTION, SITE NOT SPECIFIED (2) Dementia Code(s): F03.90 - UNSPECIFIED DEMENTIA WITHOUT BEHAVIORAL DISTURBANCE (3) Pancytopenia Code(s): D61.818 - OTHER PANCYTOPENIA (4) CHF (congestive heart failure) Code(s): I50.9 - HEART FAILURE, UNSPECIFIED Qualifiers: Congestive heart failure type: unspecified congestive heart failure type Congestive heart failure chronicity: chronic Qualified Code(s): I50.9 - Heart failure, unspecified (5) HTN (hypertension) Code(s): I10 - ESSENTIAL (PRIMARY) HYPERTENSION (6) Hypothyroidism Code(s): E03.9 - HYPOTHYROIDISM, UNSPECIFIED Aspiration pneumonia Code(s): J69.0 - PNEUMONITIS DUE TO INHALATION OF FOOD AND VOMIT lactic acidosis plan continue nutrition continue abx close watch nutrition support rest as per icu cc time 40 min
[2017-05-13] MEDS ORDERED: VANCOMYCIN 1,000 MG in DEXTROSE 5%-WATER - 250 ML IVPB ONE (17:53)
[2017-05-13] MEDS: CHLORHEXIDINE GLUCONATE 4% CLEANSER FOR DECOLONIZATION TP SCH (21:13)
[2017-05-14] MEDS: PROPOFOL 100 ML IVPB SCH ×4 (01:38→21:48)
[2017-05-14] MEDS: METRONIDAZOLE 500 MG PREMIXED 100 ML IVPB SCH ×3 (01:38→17:32)
[2017-05-14] MEDS ORDERED: NOREPINEPHRINE BITARTRATE 4 MG/4 ML ML IV ONE ×2 (01:45→21:30)
[2017-05-14] MEDS ORDERED: PT OWN MED DRAWER 7, Y5N ONE (01:49)
[2017-05-14] MEDS: PIPERACILLIN/TAZOB 2.25 GM 50 ML IVPB SCH ×4 (02:52→21:42)
[2017-05-14 06:02] LABS: MCH 34.2 pg (25.7-33.7); MCHC 34.7 g/dl (32.0-36.0); MEAN CELL VOLUME 98.6 fl (80-96); PLATELET COUNT 117 K/MM3 (134-434); RDW 22.2 % (11.6-15.6); WHITE BLOOD COUNT 6.7 K/mm3 (4.0-10.0)
[2017-05-14] MEDS: HYDROCORTISONE SOD SUCCINATE 100 MG/2 ML VIAL IVPUSH SCH ×3 (06:35→21:47)
[2017-05-14] MEDS: LEVOTHYROXINE SODIUM 100 MCG VIAL IVPUSH SCH (06:35)
[2017-05-14 06:47] LABS: ALBUMIN 1.5 g/dl (3.4-5.0); ALK PHOS 68 U/L (45-117); ANION GAP 15 (8-16); BILIRUBIN,TOTAL 0.9 mg/dL (0.2-1.0); CO2 17 mmol/L (21-32); CREATININE 2.3 mg/dL (0.55-1.02); GLUCOSE,RANDOM 103 mg/dL (74-106); MAGNESIUM 2.2 mg/dL (1.8-2.4); PHOSPHOROUS 4.8 mg/dL (2.5-4.9); SGOT/AST 33 U/L (15-37); SGPT/ALT 39 U/L (12-78); TOT PROT 4.2 g/dl (6.4-8.2)
[2017-05-14 07:20] LABS: CALCIUM 6.8 mg/dL (8.5-10.1)
[2017-05-14] MEDS ORDERED: SODIUM CHLORIDE 1,000 ML IV STA (08:32)
[2017-05-14] MEDS: ENOXAPARIN NA (PORCINE) 30 MG/0.3 ML DISP.SYRIN SQ SCH (09:02)
[2017-05-14] MEDS: PANTOPRAZOLE SODIUM 40 MG/100 ML PRE-DOCKED IVPB SCH (09:02)
[2017-05-14] MEDS: NYSTATIN 100,000 UNIT/GM TOPICAL CREAM 15 GM TUBE TP SCH ×2 (09:04→21:46)
[2017-05-14] MEDS: MUPIROCIN 2% TOPICAL OINTMENT FOR DECOLONIZATION NS SCH ×2 (09:05→21:42)
[2017-05-14] MEDS ORDERED: POTASSIUM CHLORIDE 20 MEQ PREMIX IVPB 100 ML IVPB ONE (09:15)
--- NOTE | 2017-05-14 09:35 | PN ---
Progress Note, Physician Chief Complaint: Pt remains intubated; sedated. History of Present Illness: 82 year old white female with PMH of hypothyroidism, smoking disorder, and mild systolic CHF noed on 2017 ECHO; (s/p stent 2 years ago for suspected NH) presenting with repeat falls, and altered mental status over the past few months. Patient is poor historian so her son at bedside was complementing the interview. According to him she has fallen 5 times in the last 3-4 months despite her use of a walker. She hit her head two weeks prior during one of the falls but did not seek attention. She did not lose consciousness during that fall. She describes the falls as "my legs giving out" which is corroborated by her son who witnessed one of the events. The son claims that she also has had difficulty keep track of time and with short term memory. Her memory issues are worsened at night. She lives at home alone and has had trouble with her ADLs. She is not on blood thinners. She has also had decreased food intake over the past few months although she has only lost a few pounds. She was seen by her PCP Dr. Mitchell earlier today and then sent to the ED for admission for altered mental status. Denies fevers, chills, nausea, vomiting, diarrhea, constipation, urinary symptoms, visual changes, headaches, presyncopal sensation, or palpitations. Her PCP is Dr. Mitchell. - Current Medication List Current Medications: Active Medications Chlorhexidine Gluconate (Hibiclens For Decolonization -) 1 applic TP HS JOCELYNE Last Admin: 05/13/17 21:13 Dose: 1 applic Enoxaparin Sodium (Lovenox -) 30 mg SQ DAILY JOCELYNE Last Admin: 05/14/17 09:02 Dose: 30 mg Hydrocortisone Sodium Succinate (Solu-Cortef -) 100 mg IVPUSH Q8H JOCELYNE Last Admin: 05/14/17 06:35 Dose: 100 mg Metronidazole (Flagyl 500mg Premixed Ivpb -) 100 mls @ 100 mls/hr IVPB Q8H-IV JOCELYNE Last Admin: 05/14/17 09:02 Dose: 100 mls/hr Propofol (Diprivan -) 100 mls @ 1.551 mls/hr IVPB TITR JOCELYNE; 5 MCG/KG/MIN PRN Reason: Protocol Last Admin: 05/14/17 01:38 Dose: 10.859 mls/hr Norepinephrine Bitartrate 8, (000 mcg/ Dextrose) 500 mls @ 18.75 mls/hr IV TITR JOCELYNE; 5 MCG/MIN PRN Reason: Protocol Last Admin: 05/13/17 16:04 Dose: 40 mls/hr Piperacillin/Tazobactam/Dextrose (Zosyn 2.25gm Ivpb (Premix)) 50 mls @ 100 mls/ hr IVPB Q6H-IV JOCELYNE PRN Reason: Protocol Last Admin: 05/14/17 08:45 Dose: 100 mls/hr Dopamine HCl/Dextrose (Dopamine 400 Mg/D5w -) 250 mls @ 5.411 mls/hr IVPB TITR JOCELYNE; 3 MCG/KG/MIN PRN Reason: Protocol Last Admin: 05/13/17 17:04 Dose: 5.411 mls/hr Sodium Chloride (Normal Saline -) 1,000 mls @ 250 mls/hr IV ASDIR STA Stop: 05/14/17 12:31 Last Admin: 05/14/17 08:43 Dose: 250 mls/hr Levothyroxine Sodium (Synthroid Injection -) 44 mcg IVPUSH DAILY@0700 [facility] Last Admin: 05/14/17 06:35 Dose: 44 mcg Mupirocin (Bactroban Ointment (For Decolonization) -) 1 applic NS BID [facility] Stop: 05/17/17 22:59 Last Admin: 05/14/17 09:05 Dose: 1 applic Nystatin (Mycostatin Cream -) 1 applic TP BID [facility] Last Admin: 05/14/17 09:04 Dose: 1 applic Pantoprazole Sodium (Protonix 40mg Ivpb (Pre-Docked)) 40 mg IVPB DAILY [facility] Last Admin: 05/14/17 09:02 Dose: 40 mg - Objective Vital Signs: Vital Signs Temperature 100 F H 05/14/17 09:28 Pulse Rate 104 H 05/14/17 09:28 Respiratory Rate 24 05/14/17 09:28 Blood Pressure 139/64 05/14/17 09:28 O2 Sat by Pulse Oximetry (%) 100 05/14/17 09:00 Constitutional: Yes: Thin Eyes: Yes: Other HENT: Yes: WNL Neck: Yes: Other (intubated) Cardiovascular: Yes: Tachycardia, S1 (normal), S2 (normal) Respiratory: Yes: Diminished Gastrointestinal: Yes: Soft ...Rectal Exam: Yes: Other (s/p rectal tube) Genitourinary: No: Anuria Musculoskeletal: Yes: Muscle Weakness Extremities: Yes: Cool Edema: No Peripheral Pulses WNL: No Peripheral Pulses: Left Doralis Pedis: 1+, Right Dorsalis Pedis: 1+ Neurological: Yes: Weakness Psychiatric: Yes: Other (reported dementia) Labs: CBC, BMP 05/14/17 05:00 05/14/17 05:00 INR, PTT INR 1.11 (0.82-1.09) 05/12/17 01:35 - ....Imaging Chest X-ray: Image Reviewed (slight improvement in infiltrates and congestion) Other: Image Reviewed (telemetry: NSR; sinus tachycardia; APCs and PVCs) Problem List - Problems (1) Acute respiratory failure with hypoxia and hypercapnia Code(s): J96.01 - ACUTE RESPIRATORY FAILURE WITH HYPOXIA J96.02 - ACUTE RESPIRATORY FAILURE WITH HYPERCAPNIA (2) Altered mental status, unspecified Code(s): R41.82 - ALTERED MENTAL STATUS, UNSPECIFIED (3) Anemia Code(s): D64.9 - ANEMIA, UNSPECIFIED Qualifiers: Anemia type: other cause Other causes of anemia: acute posthemorrhagic Qualified Code(s): D62 - Acute posthemorrhagic anemia; D62 - Acute posthemorrhagic anemia (4) Aspiration pneumonia Code(s): J69.0 - PNEUMONITIS DUE TO INHALATION OF FOOD AND VOMIT (5) Dementia Code(s): F03.90 - UNSPECIFIED DEMENTIA WITHOUT BEHAVIORAL DISTURBANCE (6) Fever Code(s): R50.9 - FEVER, UNSPECIFIED (7) Pancytopenia Assessment/Plan: f/u with evaporator operator. Code(s): D61.818 - OTHER PANCYTOPENIA (8) Shock Assessment/Plan: On norepinephrine IV, and fluids; antibiotics. Code(s): R57.9 - SHOCK, UNSPECIFIED (9) HTN (hypertension) Code(s): I10 - ESSENTIAL (PRIMARY) HYPERTENSION (10) Hypothyroidism Code(s): E03.9 - HYPOTHYROIDISM, UNSPECIFIED (11) Osteoporosis Code(s): M81.0 - AGE-RELATED OSTEOPOROSIS W/O CURRENT PATHOLOGICAL FRACTURE (12) Smoking Code(s): F17.200 - NICOTINE DEPENDENCE, UNSPECIFIED, UNCOMPLICATED (13) Acute on chronic systolic (congestive) heart failure Assessment/Plan: ECHO: mildly reduced LVEF; mild MR; moderate TR; mild AR; trivial pericardial effusion. presently on notrpinrphtinr; off Vasopression. (Dopamine led to exacerbation of tachycardia). F/u BUN/Cr, electrolytes, Is and Os, weight. Avoid excessive dehyration. W/u regarding anemia. Code(s): I50.23 - ACUTE ON CHRONIC SYSTOLIC (CONGESTIVE) HEART FAILURE (14) Sinus tachycardia Assessment/Plan: likely multifactorial: periodic fever; anemia; septic shock; intubation; ?pain. Code(s): R00.0 - TACHYCARDIA, UNSPECIFIED (15) Hypomagnesemia Assessment/Plan: repleted; keep level 2-2.3. Replete K+ today (presently 3.1). Code(s): E83.42 - HYPOMAGNESEMIA
--- NOTE | 2017-05-14 11:06 | PN ---
Progress Note, Physician Chief Complaint: Unable to obtain - Current Medication List Current Medications: Active Medications Chlorhexidine Gluconate (Hibiclens For Decolonization -) 1 applic TP HS JOCELYNE Last Admin: 05/13/17 21:13 Dose: 1 applic Enoxaparin Sodium (Lovenox -) 30 mg SQ DAILY JOCELYNE Last Admin: 05/14/17 09:02 Dose: 30 mg Hydrocortisone Sodium Succinate (Solu-Cortef -) 100 mg IVPUSH Q8H JOCELYNE Last Admin: 05/14/17 06:35 Dose: 100 mg Metronidazole (Flagyl 500mg Premixed Ivpb -) 100 mls @ 100 mls/hr IVPB Q8H-IV JOCELYNE Last Admin: 05/14/17 09:02 Dose: 100 mls/hr Propofol (Diprivan -) 100 mls @ 1.551 mls/hr IVPB TITR JOCELYNE; 5 MCG/KG/MIN PRN Reason: Protocol Last Admin: 05/14/17 10:20 Dose: 10.859 mls/hr Norepinephrine Bitartrate 8, (000 mcg/ Dextrose) 500 mls @ 18.75 mls/hr IV TITR JOCELYNE; 5 MCG/MIN PRN Reason: Protocol Last Admin: 05/13/17 16:04 Dose: 40 mls/hr Piperacillin/Tazobactam/Dextrose (Zosyn 2.25gm Ivpb (Premix)) 50 mls @ 100 mls/ hr IVPB Q6H-IV JOCELYNE PRN Reason: Protocol Last Admin: 05/14/17 08:45 Dose: 100 mls/hr Dopamine HCl/Dextrose (Dopamine 400 Mg/D5w -) 250 mls @ 5.411 mls/hr IVPB TITR JOCELYNE; 3 MCG/KG/MIN PRN Reason: Protocol Last Admin: 05/13/17 17:04 Dose: 5.411 mls/hr Sodium Chloride (Normal Saline -) 1,000 mls @ 250 mls/hr IV ASDIR STA Stop: 05/14/17 12:31 Last Admin: 05/14/17 08:43 Dose: 250 mls/hr Levothyroxine Sodium (Synthroid Injection -) 44 mcg IVPUSH DAILY@0700 [facility] [place] Last Admin: 05/14/17 06:35 Dose: 44 mcg Mupirocin (Bactroban Ointment (For Decolonization) -) 1 applic NS BID [facility] [place] Stop: 05/17/17 22:59 Last Admin: 05/14/17 09:05 Dose: 1 applic Nystatin (Mycostatin Cream -) 1 applic TP BID [facility] [place] Last Admin: 05/14/17 09:04 Dose: 1 applic Pantoprazole Sodium (Protonix 40mg Ivpb (Pre-Docked)) 40 mg IVPB DAILY [facility] [place] Last Admin: 05/14/17 09:02 Dose: 40 mg - Objective Vital Signs: Vital Signs Temperature 36.9 C 05/14/17 10:00 Pulse Rate 104 H 05/14/17 10:00 Respiratory Rate 18 05/14/17 10:00 Blood Pressure 93/50 05/14/17 10:00 O2 Sat by Pulse Oximetry (%) 100 05/14/17 09:20 Constitutional: Yes: Thin, Other (sedated) Cardiovascular: Yes: Tachycardia. No: Gallop, Murmur, Rub Respiratory: Yes: Regular, Intubated, Mechanically Ventilated, Rhonchi. No: CTA Bilaterally, Rales, Wheezes Gastrointestinal: Yes: Normal Bowel Sounds, Soft. No: Distention, Tenderness Extremities: Yes: WNL Edema: No Labs: CBC, BMP 05/14/17 05:00 05/14/17 05:00 INR, PTT INR 1.11 (0.82-1.09) 05/12/17 01:35 Problem List - Problems (1) UTI (urinary tract infection) Code(s): N39.0 - URINARY TRACT INFECTION, SITE NOT SPECIFIED (2) Dementia Code(s): F03.90 - UNSPECIFIED DEMENTIA WITHOUT BEHAVIORAL DISTURBANCE (3) Pancytopenia Code(s): D61.818 - OTHER PANCYTOPENIA (4) CHF (congestive heart failure) Code(s): I50.9 - HEART FAILURE, UNSPECIFIED Qualifiers: Congestive heart failure type: unspecified congestive heart failure type Congestive heart failure chronicity: chronic Qualified Code(s): I50.9 - Heart failure, unspecified; I50.9 - Heart failure, unspecified; I50.9 - Heart failure, unspecified; I50.9 - Heart failure, unspecified (5) HTN (hypertension) Code(s): I10 - ESSENTIAL (PRIMARY) HYPERTENSION (6) Hypothyroidism Code(s): E03.9 - HYPOTHYROIDISM, UNSPECIFIED (7) Aspiration pneumonia Code(s): J69.0 - PNEUMONITIS DUE TO INHALATION OF FOOD AND VOMIT (8) Anemia Code(s): D64.9 - ANEMIA, UNSPECIFIED Qualifiers: Anemia type: other cause Other causes of anemia: acute posthemorrhagic Qualified Code(s): D62 - Acute posthemorrhagic anemia; D62 - Acute posthemorrhagic anemia (9) Septic shock Code(s): A41.9 - SEPSIS, UNSPECIFIED ORGANISM R65.21 - SEVERE SEPSIS WITH SEPTIC SHOCK (10) Acute respiratory failure Code(s): J96.00 - ACUTE RESPIRATORY FAILURE, UNSP W HYPOXIA OR HYPERCAPNIA Assessment/Plan (1) Aspiration pneumonia Assessment/Plan: -ID following and appreciate assistance -continue zosyn and flagyl Code(s): N39.0 - URINARY TRACT INFECTION, SITE NOT SPECIFIED (2) Elevated troponins Assessment/Plan: -stress induced -cardiology monitoring (3) Septic shock Assessment/Plan: -may be secondary to UTI -continue ventilator support -continue pressors (4) CHF (congestive heart failure) Assessment/Plan: -ECHO reviewed Code(s): I50.9 - HEART FAILURE, UNSPECIFIED Qualifiers: Congestive heart failure type: unspecified congestive heart failure type Congestive heart failure chronicity: chronic Qualified Code(s): I50.9 - Heart failure, unspecified (5) HTN (hypertension) Assessment/Plan: -now hypotensive secondary to septic shock Code(s): I10 - ESSENTIAL (PRIMARY) HYPERTENSION (6) Hypothyroidism Assessment/Plan: -continue IV synthroid Code(s): E03.9 - HYPOTHYROIDISM, UNSPECIFIED (7) Respiratory failure -currently ventilated -pulmonary following (8) Dementia -present and chronic (9) UTI -growing enterococcus -ID following and managing 32 minutes spent in critical care time
--- NOTE | 2017-05-14 11:17 | PN ---
Teaching Attending Note Name of Resident: Robby Gregg ATTENDING PHYSICIAN STATEMENT I saw and evaluated the patient. I reviewed the resident's note and discussed the case with the resident. I agree with the resident's findings and plan as documented. SUBJECTIVE: Patient seen and examined in the ICU. Intubated and sedated. NE 9 mcq for hemodynamic support. Worsening TAMIE. AC mode of vent. Intake & Output 05/11/17 05/12/17 05/13/17 05/14/17 23:59 23:59 23:59 23:59 Intake Total 355 9036 1634.4 1867 Output Total 850 1300 500 Balance 355 8186 334.4 1367 Weight 106 lb 0.677 oz 112 lb 10.499 oz Last Vital Signs Temp Pulse Resp BP Pulse Ox 98.5 F 104 H 18 93/50 100 05/14/17 10:00 05/14/17 10:00 05/14/17 10:00 05/14/17 10:00 05/14/17 09:20 Active Medications Chlorhexidine Gluconate (Hibiclens For Decolonization -) 1 applic TP HS JOCELYNE Last Admin: 05/13/17 21:13 Dose: 1 applic Enoxaparin Sodium (Lovenox -) 30 mg SQ DAILY JOCELYNE Last Admin: 05/14/17 09:02 Dose: 30 mg Hydrocortisone Sodium Succinate (Solu-Cortef -) 100 mg IVPUSH Q8H JOCELYNE Last Admin: 05/14/17 06:35 Dose: 100 mg Metronidazole (Flagyl 500mg Premixed Ivpb -) 100 mls @ 100 mls/hr IVPB Q8H-IV JOCELYNE Last Admin: 05/14/17 09:02 Dose: 100 mls/hr Propofol (Diprivan -) 100 mls @ 1.551 mls/hr IVPB TITR JOCELYNE; 5 MCG/KG/MIN PRN Reason: Protocol Last Admin: 05/14/17 10:20 Dose: 10.859 mls/hr Norepinephrine Bitartrate 8, (000 mcg/ Dextrose) 500 mls @ 18.75 mls/hr IV TITR JOCELYNE; 5 MCG/MIN PRN Reason: Protocol Last Admin: 05/13/17 16:04 Dose: 40 mls/hr Piperacillin/Tazobactam/Dextrose (Zosyn 2.25gm Ivpb (Premix)) 50 mls @ 100 mls/ hr IVPB Q6H-IV JOCELYNE PRN Reason: Protocol Last Admin: 05/14/17 08:45 Dose: 100 mls/hr Dopamine HCl/Dextrose (Dopamine 400 Mg/D5w -) 250 mls @ 5.411 mls/hr IVPB TITR JOCELYNE; 3 MCG/KG/MIN PRN Reason: Protocol Last Admin: 05/13/17 17:04 Dose: 5.411 mls/hr Sodium Chloride (Normal Saline -) 1,000 mls @ 250 mls/hr IV ASDIR STA Stop: 05/14/17 12:31 Last Admin: 05/14/17 08:43 Dose: 250 mls/hr Levothyroxine Sodium (Synthroid Injection -) 44 mcg IVPUSH DAILY@0700 [facility] Last Admin: 05/14/17 06:35 Dose: 44 mcg Mupirocin (Bactroban Ointment (For Decolonization) -) 1 applic NS BID JOCELYNE Stop: 05/17/17 22:59 Last Admin: 05/14/17 09:05 Dose: 1 applic Nystatin (Mycostatin Cream -) 1 applic TP BID [facility] Last Admin: 05/14/17 09:04 Dose: 1 applic Pantoprazole Sodium (Protonix 40mg Ivpb (Pre-Docked)) 40 mg IVPB DAILY [facility] Last Admin: 05/14/17 09:02 Dose: 40 mg Constitutional: Yes: Intubated and sedated, mottling noticed Eyes: Yes: PERRL Cardiovascular: Yes: Tachycardia, S1, S2 Respiratory: Yes: Intubated, Mechanically Ventilated, Rhonchi Gastrointestinal: Yes: Normal Bowel Sounds, Soft, (+) Bowel Sounds Edema: No Integumentary: Yes: Other (Excoriated skin perineal area) Neurological: Yes: Unresponsive Labs: Laboratory Results - last 24 hr 05/14/17 05/14/17 05/14/17 05:00 05:00 05:00 WBC 6.7 D RBC 2.27 L Hgb 7.8 L Hct 22.4 L MCV 98.6 H MCH 34.2 H MCHC 34.7 RDW 22.2 H Plt Count 117 L D MPV 8.0 Sodium 135 L Potassium 3.1 L D Chloride 103 Carbon Dioxide 17 L Anion Gap 15 BUN 51 H Creatinine 2.3 H Creat Clearance w eGFR 20.40 POC Glucometer Random Glucose 103 Lactic Acid Calcium 6.8 L* Phosphorus 4.8 Magnesium 2.2 D Total Bilirubin 0.9 AST 33 D ALT 39 Alkaline Phosphatase 68 Total Protein 4.2 L Albumin 1.5 L Random Vancomycin 19.557 05/14/17 05/14/17 05:00 05:07 WBC RBC Hgb Hct MCV MCH MCHC RDW Plt Count MPV Sodium Potassium Chloride Carbon Dioxide Anion Gap BUN Creatinine Creat Clearance w eGFR POC Glucometer 122.08770 Random Glucose Lactic Acid 3.5 H* Calcium Phosphorus Magnesium Total Bilirubin AST ALT Alkaline Phosphatase Total Protein Albumin Random Vancomycin Problem List - Problems (1) Altered mental status, unspecified Code(s): R41.82 - ALTERED MENTAL STATUS, UNSPECIFIED (2) Aspiration pneumonia Code(s): J69.0 - PNEUMONITIS DUE TO INHALATION OF FOOD AND VOMIT (3) Dementia Code(s): F03.90 - UNSPECIFIED DEMENTIA WITHOUT BEHAVIORAL DISTURBANCE (4) Acute respiratory failure with hypoxia and hypercapnia Code(s): J96.01 - ACUTE RESPIRATORY FAILURE WITH HYPOXIA J96.02 - ACUTE RESPIRATORY FAILURE WITH HYPERCAPNIA (5) Pancytopenia Code(s): D61.818 - OTHER PANCYTOPENIA (6) CHF (congestive heart failure) Code(s): I50.9 - HEART FAILURE, UNSPECIFIED Qualifiers: Congestive heart failure type: unspecified congestive heart failure type Congestive heart failure chronicity: chronic Qualified Code(s): I50.9 - Heart failure, unspecified; I50.9 - Heart failure, unspecified; I50.9 - Heart failure, unspecified; I50.9 - Heart failure, unspecified (7) Hypothyroidism Code(s): E03.9 - HYPOTHYROIDISM, UNSPECIFIED (8) Paroxysmal SVT (supraventricular tachycardia) Code(s): I47.1 - SUPRAVENTRICULAR TACHYCARDIA (9) Shock Code(s): R57.9 - SHOCK, UNSPECIFIED Assessment/Plan Wean pressors as tolerated Sedation vacation AC Mode of vent -> not a candidate for wean at this time ABX coverage Strict I&O Follow ABG Follow CXR Overall prognosis appears grave given frail state and failure to thrive, continue GOC discussions with family Dr Melgar Critical care time spent in reviewing chart, evaluating patient and formulating plan - 36 minutes.
--- NOTE | 2017-05-14 11:42 | PN ---
Progress Note (short form) - Note Progress Note: NEUROLOGY FOLLOW-UP: Events reviewed and discussed with Dr. Melgar on rounds. This elderly woman with degenerative dementia, mutiinfarct and NPH now transferred to ICU with C. difficile enteritis. Intubated and sedated on Propofol. In no distress. No response to name. Grimaces to sternal pressure. + spontaneous respirations. Pupils 4 mm sluggishly reactive. Min EOM's to Doll's head. No corneal responses. Flacid tetraplegia. IMP: Severe B/L cerebral dysfunction No apparent focality or asymmetry Underlaying OMS + toxic metabolic encephalopathy and anesthesia. Suggest: Continue current regimen. Will reevaluate when off propofol. Prognosis guarded. Thank you very much, Hugo Adams MD
[2017-05-14 12:04] LABS: ARTERIAL BLD GAS O2 SATURATION 99.4 % (90-98.9); ARTERIAL BLOOD GAS BASE EXCESS -10.5 meq/l (-2-2); ARTERIAL BLOOD GAS HCO3 14.1 meq/L (22-26); ARTERIAL BLOOD GAS pH 7.32 (7.35-7.45)
[2017-05-14 12:05] LABS: ALLENS TEST POSITIVE; ART PUNCT SITE RIGHT BRACHIAL
[2017-05-14 12:06] LABS: LPM/O2% 50%; MECH. VENT. Y; PT. ON O2? YES; TYPE OF O2 VENT; VENT RATE 24; VT/PRESS 400
--- NOTE | 2017-05-14 12:28 | PN ---
Physical Exam: SUBJECTIVE: No acute events overnight. Patient n bed, intubated, and sedated. On Norepinephrine 9.0 mcq and D/c'd Dopamine and Vasopressin 2 U (05/13) . MAP stable and consistently above 60. Patient on AC 24/400/60%/5 with O2 sats high 90-100. Per patient son status is full code. OBJECTIVE: Vital Signs Period Temp Pulse Resp BP Sys/Damon Pulse Ox Last 24 Hr 98.5 F-100 F 80-124 12-34 92-154/48-77 99-100 GENERAL: The patient is sedated, intubated, and in no acute distress. HEAD: Normal with no signs of trauma. EYES: Pupils slightly miotic and PERRL, sclera anicteric, + conjunctiva pallor ENT: Ears normal, nares patent, oropharynx clear without exudates, moist mucous membranes. NECK: Trachea midline, full range of motion, supple. LUNGS: Breath sounds coarse bilaterally, no accessory muscle use. HEART: Increased rate and regular rhythm, S1, S2 without murmur, rub or gallop. ABDOMEN: Soft, nontender, nondistended, normoactive bowel sounds, no guarding, no rebound, no hepatosplenomegaly, no masses. EXTREMITIES: 1+ pulses, skin is cold, clammy and diffuse mottling observed. NEUROLOGICAL: Minimally responsive to pain. cannot assess. Laboratory Results - last 24 hr 05/14/17 05/14/17 05/14/17 05:00 05:00 05:00 WBC 6.7 D RBC 2.27 L Hgb 7.8 L Hct 22.4 L MCV 98.6 H MCH 34.2 H MCHC 34.7 RDW 22.2 H Plt Count 117 L D MPV 8.0 Puncture Site ABG pH ABG pCO2 at Pt Temp ABG pO2 at Pt Temp ABG HCO3 ABG O2 Sat (Measured) ABG O2 Content ABG Base Excess Demario Test O2 Delivery Device Oxygen Flow Rate Vent Mode Vent Rate Mechanical Rate PEEP Pressure Support Vent Sodium 135 L Potassium 3.1 L D Chloride 103 Carbon Dioxide 17 L Anion Gap 15 BUN 51 H Creatinine 2.3 H Creat Clearance w eGFR 20.40 POC Glucometer Random Glucose 103 Lactic Acid Calcium 6.8 L* Phosphorus 4.8 Magnesium 2.2 D Total Bilirubin 0.9 AST 33 D ALT 39 Alkaline Phosphatase 68 Total Protein 4.2 L Albumin 1.5 L Random Vancomycin 19.557 05/14/17 05/14/17 05/14/17 05:00 05:07 12:00 WBC RBC Hgb Hct MCV MCH MCHC RDW Plt Count MPV Puncture Site Right brachial ABG pH 7.32 L ABG pCO2 at Pt Temp 28.0 L D ABG pO2 at Pt Temp 135.0 H D ABG HCO3 14.1 L* ABG O2 Sat (Measured) 99.4 H ABG O2 Content 10.4 L ABG Base Excess -10.5 L* Demario Test Positive O2 Delivery Device Vent Oxygen Flow Rate 50% Vent Mode A/c Vent Rate 24 Mechanical Rate Y PEEP 5.0 Pressure Support Vent 400 Sodium Potassium Chloride Carbon Dioxide Anion Gap BUN Creatinine Creat Clearance w eGFR POC Glucometer 122.12815 Random Glucose Lactic Acid 3.5 H* Calcium Phosphorus Magnesium Total Bilirubin AST ALT Alkaline Phosphatase Total Protein Albumin Random Vancomycin Active Medications Generic Name Dose Route Start Last Admin Trade Name Freq PRN Reason Stop Dose Admin Chlorhexidine Gluconate 1 applic 05/13/17 22:00 05/13/17 21:13 Hibiclens For Decolonization - TP 1 applic HS JOCELYNE Administration Enoxaparin Sodium 30 mg 05/12/17 13:00 05/14/17 09:02 Lovenox - SQ 30 mg DAILY JOCELYNE Administration Hydrocortisone Sodium Succinate 100 mg 05/12/17 14:15 05/14/17 06:35 Solu-Cortef - IVPUSH 100 mg Q8H JOCELYNE Administration Metronidazole 100 mls @ 100 mls/hr 05/12/17 02:00 05/14/17 09:02 Flagyl 500mg Premixed Ivpb - IVPB 100 mls/hr Q8H-IV JOCELYNE Administration Propofol 100 mls @ 1.551 mls/hr 05/12/17 01:59 05/14/17 10:20 Diprivan - IVPB 10.859 mls/hr TITR JOCELYNE Administration Protocol 5 MCG/KG/MIN Norepinephrine Bitartrate 8, 500 mls @ 18.75 mls/hr 05/12/17 12:45 05/13/17 16: 04 000 mcg/ Dextrose IV 40 mls/hr TITR JOCELYNE Administration Protocol 5 MCG/MIN Piperacillin/Tazobactam/Dextrose 50 mls @ 100 mls/hr 05/12/17 15:30 05/14/17 08 :45 Zosyn 2.25gm Ivpb (Premix) IVPB 100 mls/hr Q6H-IV JOCELYNE Administration Protocol Dopamine HCl/Dextrose 250 mls @ 5.411 mls/hr 05/13/17 16:30 05/13/17 17:04 Dopamine 400 Mg/D5w - IVPB 5.411 mls/hr TITR JOCELYNE Administration Protocol 3 MCG/KG/MIN Sodium Chloride 1,000 mls @ 250 mls/hr 05/14/17 08:32 05/14/17 08:43 Normal Saline - IV 05/14/17 12:31 250 mls/hr ASDIR STA Administration Levothyroxine Sodium 44 mcg 05/12/17 07:00 05/14/17 06:35 Synthroid Injection - IVPUSH 44 mcg DAILY@0700 JOCELYNE Administration Mupirocin 1 applic 05/12/17 23:00 05/14/17 09:05 Bactroban Ointment (For Decolonization) - NS 05/17/17 22:59 1 applic BID JOCELYNE Administration Nystatin 1 applic 05/12/17 10:00 05/14/17 09:04 Mycostatin Cream - TP 1 applic BID JOCELYNE Administration Pantoprazole Sodium 40 mg 05/12/17 10:00 05/14/17 09:02 Protonix 40mg Ivpb (Pre-Docked) IVPB 40 mg DAILY JOCELYNE Administration ASSESSMENT/PLAN: 82 yo F h/o CAD s/p stent, CHF, suspected COPD, dementia, and hypothyroidism, who presented w/ altered mentation and failure to thrive, and recent dx. of dysphagia and UTI who was transferred to ICU s/p rapid response 2/2 acute hypoxic respiratory failure and aspiration, septic shock, and SVT. Neurology: sedated and intubated H/o dementia presented with AMS in setting of 45 day hospitalization and infectious process CT head reveals chronic microvascular ischemic changes/lacunr strokes. Plan: -continue vent 24/400/60%/5 -Propofol 5 mcg/kg/min - Neurology consult. - F/u with Neurology recs. Cardiac: H/o CAD s/p stent -F/u TTE Hypotension: 2/2 septic shock Elevated Troponin Trop 0.11-->0.23 Most likely 2/2 demand ischemia Plan: - Trend Troponins Pulmonary: Acute hypoxic respiratory failure: most likely 2/2 aspiration pneumonitis H/o COPD CXR: retrocardiac atelectasis vs infiltrate ABG (05/14) 7.324/28.0/135/14.1, Na 135, Cl 103, Alb 1.5 Compensated Anion gap metabolic acidosis with resp. alkalosis, and met alkalosis Plan: - Cont vent settings 24/400/60%/5 HCAP: Low suspicion -Cont zosyn, flagyl -CXR QD Infectious Disease: Septic shock: 2/2 HCAP vs UTI vs GI Pt. is fluid unresponsive in setting of cardiac disease. Initial bolus attempts unsuccessful. L IJ placed with levophed started WBC 2.4-->4.6 lactic acid 7.9-->4.5-->4.7 (downtrending) Blood cx: NGTD Urine Cx: S. Troys with C.dif undetectable (05/13) Stool Cx. MRSA + (05/14) CXR: Absent evidence of infiltrate Plan: - Maintain MAP >65 - Cont Norepineprhine 9 mcq - D/c Dopamine - D/c Vasopressin - NS fluid 250 ml with goal CVP 8-12 - Hydrocortisone 100 mg IVP - Strict I/O - Trend lactic acid - Cont Zosyn - Cont Flagyl - F/u Urine sensitives. GI: Diarrhea C.dif undetectable Stool Cx. MRSA + Plan: -Cont Zosyn -Cont Flagyl -Contact precautions EGD/PEG ongoing discussions regarding GOC w/ family-son. : TAMIE: Most likely prerenal 2/2 shock Cr baseline 0.9 Cr 1.5-->2.1 Urine Cx: S. viridians Plan: - Strict I/O. - Mainatin UOP >0.5cc/kg/hr - Maintain roper - CMP QD - F/u Urine sensitivities Heme/Onc: Pancytopenia -Heme following -Fe studies,B12,folate wnl -suspicion of oncologic process Plan: - CBC QD FEN: No IVF, lytes PRN, NPO PPx: Pantaprazole 40 mg, Lovenox 30 mg SQ Dispo: ICU monitoring. Attempt to contact son to confirm GOC. Visit type - Emergency Visit Emergency Visit: Yes ED Registration Date: 09/07/17 Care time: The patient presented to the Emergency Department on the above date and was hospitalized for further evaluation of their emergent condition. - New Patient This patient is new to me today: No - Critical Care Critical Care patient: Yes Total Critical Care Time (in minutes): 35 Critical Care Statement: The care of this patient involved high complexity decision making to prevent further life threatening deterioration of the patient 's condition and/or to evaluate & treat vital organ system(s) failure or risk of failure.
--- NOTE | 2017-05-14 16:02 | PN ---
Progress Note, Physician History of Present Illness: continues to be sedated events noted started on pressors - Current Medication List Current Medications: Active Medications Chlorhexidine Gluconate (Hibiclens For Decolonization -) 1 applic TP HS [facility] Last Admin: 05/13/17 21:13 Dose: 1 applic Enoxaparin Sodium (Lovenox -) 30 mg SQ DAILY JOCELYNE Last Admin: 05/14/17 09:02 Dose: 30 mg Hydrocortisone Sodium Succinate (Solu-Cortef -) 100 mg IVPUSH Q8H JOCELYNE Last Admin: 05/14/17 15:38 Dose: 100 mg Metronidazole (Flagyl 500mg Premixed Ivpb -) 100 mls @ 100 mls/hr IVPB Q8H-IV JOCELYNE Last Admin: 05/14/17 09:02 Dose: 100 mls/hr Propofol (Diprivan -) 100 mls @ 1.551 mls/hr IVPB TITR JOCELYNE; 5 MCG/KG/MIN PRN Reason: Protocol Last Admin: 05/14/17 10:20 Dose: 10.859 mls/hr Norepinephrine Bitartrate 8, (000 mcg/ Dextrose) 500 mls @ 18.75 mls/hr IV TITR JOCELYNE; 5 MCG/MIN PRN Reason: Protocol Last Admin: 05/13/17 16:04 Dose: 40 mls/hr Piperacillin/Tazobactam/Dextrose (Zosyn 2.25gm Ivpb (Premix)) 50 mls @ 100 mls/ hr IVPB Q6H-IV JOCELYNE PRN Reason: Protocol Last Admin: 05/14/17 15:38 Dose: 100 mls/hr Dopamine HCl/Dextrose (Dopamine 400 Mg/D5w -) 250 mls @ 5.411 mls/hr IVPB TITR JOCELYNE; 3 MCG/KG/MIN PRN Reason: Protocol Last Admin: 05/13/17 17:04 Dose: 5.411 mls/hr Levothyroxine Sodium (Synthroid Injection -) 44 mcg IVPUSH DAILY@0700 [facility] Last Admin: 05/14/17 06:35 Dose: 44 mcg Mupirocin (Bactroban Ointment (For Decolonization) -) 1 applic NS BID JOCELYNE Stop: 05/17/17 22:59 Last Admin: 05/14/17 09:05 Dose: 1 applic Nystatin (Mycostatin Cream -) 1 applic TP BID JOCELYNE Last Admin: 05/14/17 09:04 Dose: 1 applic Pantoprazole Sodium (Protonix 40mg Ivpb (Pre-Docked)) 40 mg IVPB DAILY [facility] Last Admin: 05/14/17 09:02 Dose: 40 mg - Objective Vital Signs: Vital Signs Temperature 98.7 F 05/14/17 14:00 Pulse Rate 96 H 05/14/17 15:00 Respiratory Rate 24 05/14/17 15:00 Blood Pressure 98/64 05/14/17 15:00 O2 Sat by Pulse Oximetry (%) 100 05/14/17 11:36 Constitutional: Yes: Other Cardiovascular: Yes: Regular Rate and Rhythm Respiratory: Yes: Intubated, Mechanically Ventilated Gastrointestinal: Yes: Normal Bowel Sounds, Soft Genitourinary: Yes: Beck Present Musculoskeletal: Yes: Other Extremities: Yes: Other Neurological: Yes: Other Psychiatric: Yes: Other Labs: CBC, BMP 05/14/17 05:00 05/14/17 05:00 INR, PTT INR 1.11 (0.82-1.09) 05/12/17 01:35 - ....Imaging Chest X-ray: Report Reviewed, Image Reviewed Assessment/Plan Problem List - Problems (1) UTI (urinary tract infection) Code(s): N39.0 - URINARY TRACT INFECTION, SITE NOT SPECIFIED (2) Dementia Code(s): F03.90 - UNSPECIFIED DEMENTIA WITHOUT BEHAVIORAL DISTURBANCE (3) Pancytopenia Code(s): D61.818 - OTHER PANCYTOPENIA (4) CHF (congestive heart failure) Code(s): I50.9 - HEART FAILURE, UNSPECIFIED Qualifiers: Congestive heart failure type: unspecified congestive heart failure type Congestive heart failure chronicity: chronic Qualified Code(s): I50.9 - Heart failure, unspecified (5) HTN (hypertension) Code(s): I10 - ESSENTIAL (PRIMARY) HYPERTENSION (6) Hypothyroidism Code(s): E03.9 - HYPOTHYROIDISM, UNSPECIFIED Aspiration pneumonia Code(s): J69.0 - PNEUMONITIS DUE TO INHALATION OF FOOD AND VOMIT lactic acidosis vanco level noted,will hold vanco today check vanco level tomorrow if less than 15 give one gram plan continue nutrition continue abx close watch nutrition support rest as per icu cc time 40 min
[2017-05-14] MEDS: NOREPINEPHRINE BITARTRATE 8,000 MCG in DEXTROSE 5%-WATER - 492 ML IV SCH ×2 (17:30→21:47)
[2017-05-14] MEDS: DOPAMINE 400 MG/D5W - 250 ML IVPB SCH (21:40)
[2017-05-14] MEDS: CHLORHEXIDINE GLUCONATE 4% CLEANSER FOR DECOLONIZATION TP SCH (21:44)
[2017-05-15] MEDS: PROPOFOL 100 ML IVPB SCH ×2 (01:50→20:20)
[2017-05-15] MEDS: METRONIDAZOLE 500 MG PREMIXED 100 ML IVPB SCH ×2 (02:00→09:49)
[2017-05-15] MEDS: PIPERACILLIN/TAZOB 2.25 GM 50 ML IVPB SCH ×3 (03:00→14:29)
[2017-05-15 05:56] LABS: MCH 34.3 pg (25.7-33.7); MCHC 35.2 g/dl (32.0-36.0); MEAN CELL VOLUME 97.6 fl (80-96); MEAN PLT VOLUME 8.4 fl (7.5-11.1); RDW 22.1 % (11.6-15.6); WHITE BLOOD COUNT 7.5 K/mm3 (4.0-10.0)
[2017-05-15 06:26] LABS: PLATELET COUNT 78 K/MM3 (134-434); PLATELET ESTIMATE MOD DECREASED (NORMAL); TOTAL CELLS COUNTED 100
[2017-05-15 06:28] LABS: ALBUMIN 1.4 g/dl (3.4-5.0); ALK PHOS 106 U/L (45-117); ANION GAP 14 (8-16); BILIRUBIN,TOTAL 0.7 mg/dL (0.2-1.0); CALCIUM 7.1 mg/dL (8.5-10.1); CO2 17 mmol/L (21-32); CREATININE 1.8 mg/dL (0.55-1.02); GLUCOSE,RANDOM 158 mg/dL (74-106); PHOSPHOROUS 2.4 mg/dL (2.5-4.9); SGPT/ALT 34 U/L (12-78); TOT PROT 4.2 g/dl (6.4-8.2)
[2017-05-15 06:35] LABS: MAGNESIUM 2.1 mg/dL (1.8-2.4); SGOT/AST 22 U/L (15-37)
[2017-05-15] MEDS: LEVOTHYROXINE SODIUM 100 MCG VIAL IVPUSH SCH (06:47)
[2017-05-15] MEDS: HYDROCORTISONE SOD SUCCINATE 100 MG/2 ML VIAL IVPUSH SCH ×3 (06:48→22:04)
[2017-05-15] MEDS ORDERED: PT OWN MED DRAWER 7, Y5N ONE (07:57)
--- NOTE | 2017-05-15 08:23 | PN ---
Progress Note (short form) - Note Progress Note: Seen and examined in the ICU Pressor requirement improved: NE 9->3mcg SCr improved 2.1->1.8 w/ improved urine output remains intubated Current Medications Chlorhexidine Gluconate (Hibiclens For Decolonization -) 1 applic TP HS [facility] Last Admin: 05/14/17 21:44 Dose: 1 applic Enoxaparin Sodium (Lovenox -) 30 mg SQ DAILY [facility] Last Admin: 05/14/17 09:02 Dose: 30 mg Hydrocortisone Sodium Succinate (Solu-Cortef -) 100 mg IVPUSH Q8H [facility] Last Admin: 05/15/17 06:48 Dose: 100 mg Metronidazole (Flagyl 500mg Premixed Ivpb -) 100 mls @ 100 mls/hr IVPB Q8H-IV [facility] Last Admin: 05/15/17 02:00 Dose: 100 mls/hr Propofol (Diprivan -) 100 mls @ 1.551 mls/hr IVPB TITR [facility]; 5 MCG/KG/MIN PRN Reason: Protocol Last Admin: 05/15/17 01:50 Dose: Not Given Norepinephrine Bitartrate 8, (000 mcg/ Dextrose) 500 mls @ 18.75 mls/hr IV TITR [facility]; 5 MCG/MIN PRN Reason: Protocol Last Titration: 05/15/17 05:00 Dose: 3 mcg/min Piperacillin/Tazobactam/Dextrose (Zosyn 2.25gm Ivpb (Premix)) 50 mls @ 100 mls/ hr IVPB Q6H-IV [facility] PRN Reason: Protocol Last Admin: 05/15/17 03:00 Dose: 100 mls/hr Dopamine HCl/Dextrose (Dopamine 400 Mg/D5w -) 250 mls @ 5.411 mls/hr IVPB TITR [facility]; 3 MCG/KG/MIN PRN Reason: Protocol Last Admin: 05/14/17 21:40 Dose: Not Given Levothyroxine Sodium (Synthroid Injection -) 44 mcg IVPUSH DAILY@0700 [facility] Last Admin: 05/15/17 06:47 Dose: 44 mcg Mupirocin (Bactroban Ointment (For Decolonization) -) 1 applic NS BID [facility] Stop: 05/17/17 22:59 Last Admin: 05/14/17 21:42 Dose: 1 applic Nystatin (Mycostatin Cream -) 1 applic TP BID [facility] Last Admin: 05/14/17 21:46 Dose: 1 applic Pantoprazole Sodium (Protonix 40mg Ivpb (Pre-Docked)) 40 mg IVPB DAILY [facility] Last Admin: 05/14/17 09:02 Dose: 40 mg Intake & Output 05/12/17 05/13/17 05/14/17 05/15/17 23:59 23:59 23:59 23:59 Intake Total 9036 1634.4 3867 1048.4 Output Total 850 1300 1500 700 Balance 8186 334.4 2367 348.4 Weight 48.1 kg 51.1 kg Vital Signs Period Temp Pulse Resp BP Sys/Damon Pulse Ox Last 24 Hr 97.5 F-100 F 89-104 14-34 92-139/50-74 100-100 Exam: General: frail woman sedated and intubated HEENT: PERRL, anicteric, no JVD CV: S1, S2, RRR Pulm: diminished Abd: SNTND, +BS Ext: WWP, +2 pulses Neuro: RASS -3/4 CBCD WBC 7.5 K/mm3 (4.0-10.0) 05/15/17 05:45 RBC 2.15 M/mm3 (3.60-5.2) L 05/15/17 05:45 Hgb 7.4 GM/dL (10.7-15.3) L 05/15/17 05:45 Hct 21.0 % (32.4-45.2) L 05/15/17 05:45 MCV 97.6 fl (80-96) H 05/15/17 05:45 MCHC 35.2 g/dl (32.0-36.0) 05/15/17 05:45 RDW 22.1 % (11.6-15.6) H 05/15/17 05:45 Plt Count 78 K/MM3 (134-434) L D 05/15/17 05:45 MPV 8.4 fl (7.5-11.1) 05/15/17 05:45 CMP Sodium 139 mmol/L (136-145) 05/15/17 05:45 Potassium 2.4 mmol/L (3.5-5.1) L* D 05/15/17 05:45 Chloride 108 mmol/L (98-107) H 05/15/17 05:45 Carbon Dioxide 17 mmol/L (21-32) L 05/15/17 05:45 Anion Gap 14 (8-16) 05/15/17 05:45 BUN 47 mg/dL (7-18) H 05/15/17 05:45 Creatinine 1.8 mg/dL (0.55-1.02) H D 05/15/17 05:45 Creat Clearance w eGFR 27.07 (>60) 05/15/17 05:45 Random Glucose 158 mg/dL (74-106) H D 05/15/17 05:45 Calcium 7.1 mg/dL (8.5-10.1) L 05/15/17 05:45 Total Bilirubin 0.7 mg/dL (0.2-1.0) D 05/15/17 05:45 AST 22 U/L (15-37) D 05/15/17 05:45 ALT 34 U/L (12-78) 05/15/17 05:45 Alkaline Phosphatase 106 U/L (45-117) D 05/15/17 05:45 Total Protein 4.2 g/dl (6.4-8.2) L 05/15/17 05:45 Albumin 1.4 g/dl (3.4-5.0) L 05/15/17 05:45 CARDIAC ENZYMES Creatine Kinase 65 IU/L (26-192) 05/12/17 01:35 Troponin I 0.23 ng/ml (0.00-0.05) H 05/13/17 05:10 Microbiology 05/12/17 02:00 Blood - Peripheral Venous Blood Culture - Preliminary NO GROWTH OBTAINED AFTER 72 HOURS, INCUBATION TO CONTINUE FOR 2 DAYS. 05/12/17 02:00 Blood - Peripheral Venous Blood Culture - Preliminary NO GROWTH OBTAINED AFTER 72 HOURS, INCUBATION TO CONTINUE FOR 2 DAYS. 05/12/17 01:35 Urine - Urine - Catheterized Urine Culture - Preliminary Enterococcus Durans/Hirae 05/12/17 01:00 Sputum - Endotrachea Suction/Ventilator Gram Stain - Final 05/12/17 01:00 Sputum - Endotrachea Suction/Ventilator Sputum Culture - Final Mr S Aureus Stenotrophomon.(X.)Maltophilia 05/12/17 15:00 Stool Salmonella/Shigella Culture - Preliminary Presumptive Mrsa (Pbp2a Pos) 05/12/17 15:00 Stool Yersinia Culture - Preliminary NO ENTERIC PATHOGENS, 24 HOURS, ON PRIMARY PLATES 04/04/17 08:00 Urine - Urine Clean Catch Urine Culture - Final Diphtheroid/Corynebacterium 04/01/17 18:15 Urine - Urine Clean Catch Urine Culture - Final Alpha Hemolytic Streptococcus Problem List - Problems (1) Altered mental status, unspecified Code(s): R41.82 - ALTERED MENTAL STATUS, UNSPECIFIED (2) Aspiration pneumonia Code(s): J69.0 - PNEUMONITIS DUE TO INHALATION OF FOOD AND VOMIT (3) Dementia Code(s): F03.90 - UNSPECIFIED DEMENTIA WITHOUT BEHAVIORAL DISTURBANCE (4) Acute respiratory failure with hypoxia and hypercapnia Code(s): J96.01 - ACUTE RESPIRATORY FAILURE WITH HYPOXIA J96.02 - ACUTE RESPIRATORY FAILURE WITH HYPERCAPNIA (5) Pancytopenia Code(s): D61.818 - OTHER PANCYTOPENIA (6) CHF (congestive heart failure) Code(s): I50.9 - HEART FAILURE, UNSPECIFIED Qualifiers: Congestive heart failure type: unspecified congestive heart failure type Congestive heart failure chronicity: chronic Qualified Code(s): I50.9 - Heart failure, unspecified; I50.9 - Heart failure, unspecified; I50.9 - Heart failure, unspecified; I50.9 - Heart failure, unspecified (7) Hypothyroidism Code(s): E03.9 - HYPOTHYROIDISM, UNSPECIFIED (8) Paroxysmal SVT (supraventricular tachycardia) Code(s): I47.1 - SUPRAVENTRICULAR TACHYCARDIA (9) Shock Code(s): R57.9 - SHOCK, UNSPECIFIED Assessment/Plan Wean pressors as tolerated goal MAP 60-70 Wean steroids, 5omg bid then off tomorrow Sedation vacation HOB >30, oral care Daily SBTs: tolerating PSV 8, unable to extubate given AMS and inability to protect airway Titrate FiO@ for sat 89-94% ABX coverage per ID: zosyn and vanco If fails to wean consider stenotropomonas coverage Strict I&O Repleat lytes Follow ABG Follow CXR Overall prognosis appears grave given frail state and failure to thrive, continue GOC discussions with family Shai ESTEBAN Pulm/CCM CCT: 35m Problem List - Problems (1) Altered mental status, unspecified Code(s): R41.82 - ALTERED MENTAL STATUS, UNSPECIFIED (2) Aspiration pneumonia Code(s): J69.0 - PNEUMONITIS DUE TO INHALATION OF FOOD AND VOMIT (3) Dementia Code(s): F03.90 - UNSPECIFIED DEMENTIA WITHOUT BEHAVIORAL DISTURBANCE (4) Acute respiratory failure with hypoxia and hypercapnia Code(s): J96.01 - ACUTE RESPIRATORY FAILURE WITH HYPOXIA J96.02 - ACUTE RESPIRATORY FAILURE WITH HYPERCAPNIA (5) Pancytopenia Code(s): D61.818 - OTHER PANCYTOPENIA (6) CHF (congestive heart failure) Code(s): I50.9 - HEART FAILURE, UNSPECIFIED Qualifiers: Congestive heart failure type: unspecified congestive heart failure type Congestive heart failure chronicity: chronic Qualified Code(s): I50.9 - Heart failure, unspecified; I50.9 - Heart failure, unspecified; I50.9 - Heart failure, unspecified; I50.9 - Heart failure, unspecified (7) Hypothyroidism Code(s): E03.9 - HYPOTHYROIDISM, UNSPECIFIED (8) Paroxysmal SVT (supraventricular tachycardia) Code(s): I47.1 - SUPRAVENTRICULAR TACHYCARDIA (9) Shock Code(s): R57.9 - SHOCK, UNSPECIFIED
[2017-05-15] MEDS: POTASSIUM CHLORIDE ORAL LIQUID 20 MEQ/15 ML PO SCH ×4 (09:46→17:51)
[2017-05-15] MEDS: MUPIROCIN 2% TOPICAL OINTMENT FOR DECOLONIZATION NS SCH ×2 (09:46→22:04)
[2017-05-15] MEDS: ENOXAPARIN NA (PORCINE) 30 MG/0.3 ML DISP.SYRIN SQ SCH (09:49)
[2017-05-15] MEDS: PANTOPRAZOLE SODIUM 40 MG/100 ML PRE-DOCKED IVPB SCH (09:51)
[2017-05-15] MEDS: NYSTATIN 100,000 UNIT/GM TOPICAL CREAM 15 GM TUBE TP SCH ×2 (10:32→22:10)
[2017-05-15 14:39] LABS: ANION GAP 12 (8-16); CALCIUM 7.5 mg/dL (8.5-10.1); CO2 16 mmol/L (21-32); GLUCOSE,RANDOM 152 mg/dL (74-106)
[2017-05-15 14:41] LABS: CREATININE 1.7 mg/dL (0.55-1.02)
--- NOTE | 2017-05-15 14:58 | PN ---
Progress Note, Physician History of Present Illness: continues to be intubated vanco level noted - Current Medication List Current Medications: Active Medications Chlorhexidine Gluconate (Hibiclens For Decolonization -) 1 applic TP HS [facility] Last Admin: 05/14/17 21:44 Dose: 1 applic Enoxaparin Sodium (Lovenox -) 30 mg SQ DAILY [facility] Last Admin: 05/15/17 09:49 Dose: 30 mg Hydrocortisone Sodium Succinate (Solu-Cortef -) 50 mg IVPUSH Q8H [facility] Last Admin: 05/15/17 14:29 Dose: 50 mg Metronidazole (Flagyl 500mg Premixed Ivpb -) 100 mls @ 100 mls/hr IVPB Q8H-IV [facility] Last Admin: 05/15/17 09:49 Dose: 100 mls/hr Propofol (Diprivan -) 100 mls @ 1.551 mls/hr IVPB TITR [facility]; 5 MCG/KG/MIN PRN Reason: Protocol Last Admin: 05/15/17 01:50 Dose: Not Given Norepinephrine Bitartrate 8, (000 mcg/ Dextrose) 500 mls @ 18.75 mls/hr IV TITR [facility]; 5 MCG/MIN PRN Reason: Protocol Last Titration: 05/15/17 05:00 Dose: 3 mcg/min Linezolid 600 mg/ (Miscellaneous) 300 mls @ 300 mls/hr IVPB Q12H [facility] PRN Reason: Protocol Levothyroxine Sodium (Synthroid Injection -) 44 mcg IVPUSH DAILY@0700 [facility] Last Admin: 05/15/17 06:47 Dose: 44 mcg Mupirocin (Bactroban Ointment (For Decolonization) -) 1 applic NS BID [facility] Stop: 05/17/17 22:59 Last Admin: 05/15/17 09:46 Dose: 1 applic Nystatin (Mycostatin Cream -) 1 applic TP BID [facility] Last Admin: 05/15/17 10:32 Dose: 1 applic Pantoprazole Sodium (Protonix 40mg Ivpb (Pre-Docked)) 40 mg IVPB DAILY [facility] Last Admin: 05/15/17 09:51 Dose: 40 mg - Objective Vital Signs: Vital Signs Temperature 98 F 05/15/17 13:00 Pulse Rate 104 H 05/15/17 14:00 Respiratory Rate 22 05/15/17 14:15 Blood Pressure 117/62 10/21/17 14:00 O2 Sat by Pulse Oximetry (%) 100 05/15/17 10:42 Constitutional: Yes: Other Cardiovascular: Yes: Regular Rate and Rhythm Respiratory: Yes: Intubated, Mechanically Ventilated Gastrointestinal: Yes: Normal Bowel Sounds, Soft Musculoskeletal: Yes: WNL Edema: LLE: 1+, RLE: 1+ Neurological: Yes: Other Labs: CBC, BMP 05/15/17 05:45 INR, PTT INR 1.11 (0.82-1.09) 05/12/17 01:35 Assessment/Plan Problem List - Problems (1) UTI (urinary tract infection) Code(s): N39.0 - URINARY TRACT INFECTION, SITE NOT SPECIFIED (2) Dementia Code(s): F03.90 - UNSPECIFIED DEMENTIA WITHOUT BEHAVIORAL DISTURBANCE (3) Pancytopenia Code(s): D61.818 - OTHER PANCYTOPENIA (4) CHF (congestive heart failure) Code(s): I50.9 - HEART FAILURE, UNSPECIFIED Qualifiers: Congestive heart failure type: unspecified congestive heart failure type Congestive heart failure chronicity: chronic Qualified Code(s): I50.9 - Heart failure, unspecified (5) HTN (hypertension) Code(s): I10 - ESSENTIAL (PRIMARY) HYPERTENSION (6) Hypothyroidism Code(s): E03.9 - HYPOTHYROIDISM, UNSPECIFIED Aspiration pneumonia Code(s): J69.0 - PNEUMONITIS DUE TO INHALATION OF FOOD AND VOMIT lactic acidosis vanco level noted,will hold vanco today check vanco level tomorrow if less than 15 give one gram plan continue nutrition continue abx close watch nutrition support rest as per icu will check vanco level cc time 40 min
--- NOTE | 2017-05-15 15:20 | PN ---
Progress Note, Physician Chief Complaint: Sedated on Ventilator, low H/h History of Present Illness: 82 yrs old admitted with frequent fall H/O HTN, CAD s/p stent, Hypothyroidism, admitted with fall prolonged hospitalization developed respiratory failure, intibayed on respirator multiple + Cutures. - Current Medication List Current Medications: Active Medications Chlorhexidine Gluconate (Hibiclens For Decolonization -) 1 applic TP HS [facility] Last Admin: 05/14/17 21:44 Dose: 1 applic Enoxaparin Sodium (Lovenox -) 30 mg SQ DAILY [facility] Last Admin: 05/15/17 09:49 Dose: 30 mg Hydrocortisone Sodium Succinate (Solu-Cortef -) 50 mg IVPUSH Q8H [facility] Last Admin: 05/15/17 14:29 Dose: 50 mg Metronidazole (Flagyl 500mg Premixed Ivpb -) 100 mls @ 100 mls/hr IVPB Q8H-IV [facility] Last Admin: 05/15/17 09:49 Dose: 100 mls/hr Propofol (Diprivan -) 100 mls @ 1.551 mls/hr IVPB TITR [facility]; 5 MCG/KG/MIN PRN Reason: Protocol Last Admin: 05/15/17 01:50 Dose: Not Given Norepinephrine Bitartrate 8, (000 mcg/ Dextrose) 500 mls @ 18.75 mls/hr IV TITR [facility]; 5 MCG/MIN PRN Reason: Protocol Last Titration: 05/15/17 05:00 Dose: 3 mcg/min Linezolid 600 mg/ (Miscellaneous) 300 mls @ 300 mls/hr IVPB Q12H [facility] PRN Reason: Protocol Levothyroxine Sodium (Synthroid Injection -) 44 mcg IVPUSH DAILY@0700 [facility] Last Admin: 05/15/17 06:47 Dose: 44 mcg Mupirocin (Bactroban Ointment (For Decolonization) -) 1 applic NS BID [facility] Stop: 05/17/17 22:59 Last Admin: 05/15/17 09:46 Dose: 1 applic Nystatin (Mycostatin Cream -) 1 applic TP BID [facility] Last Admin: 05/15/17 10:32 Dose: 1 applic Pantoprazole Sodium (Protonix 40mg Ivpb (Pre-Docked)) 40 mg IVPB DAILY [facility] Last Admin: 05/15/17 09:51 Dose: 40 mg - Objective Vital Signs: Vital Signs Temperature 98 F 05/15/17 13:00 Pulse Rate 104 H 05/15/17 14:00 Respiratory Rate 22 05/15/17 14:15 Blood Pressure 117/62 05/15/17 14:00 O2 Sat by Pulse Oximetry (%) 100 05/15/17 10:42 Elderly F intubated and sedated, sick looking HEENT: ET tube at place, NG tube feeding, Mm dry + anemia, PERRLA EOMI NECK: No JVD No Bruit CHEST: B/L Crepts CVs: S1S2 Irregular NILO at base ABD: No distention, non tender Bs + EXT: + edema feet, no calf tenderness 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 Code(s): J96.01 - ACUTE RESPIRATORY FAILURE WITH HYPOXIA J96.02 - ACUTE RESPIRATORY FAILURE WITH HYPERCAPNIA (2) Aspiration pneumonia Assessment/Plan: On IV Abx F/U cultures and fever Curve. Code(s): J69.0 - PNEUMONITIS DUE TO INHALATION OF FOOD AND VOMIT (3) Dementia Assessment/Plan: Chronic no active issue, Code(s): F03.90 - UNSPECIFIED DEMENTIA WITHOUT BEHAVIORAL DISTURBANCE (4) Hypokalemia Assessment/Plan: Rep[leted F/U BMP and Sr Magnesium level. Code(s): E87.6 - HYPOKALEMIA (5) Pancytopenia Code(s): D61.818 - OTHER PANCYTOPENIA (6) Septic shock Assessment/Plan: On pressors and IV abx. Code(s): A41.9 - SEPSIS, UNSPECIFIED ORGANISM R65.21 - SEVERE SEPSIS WITH SEPTIC SHOCK (7) Paroxysmal SVT (supraventricular tachycardia) Code(s): I47.1 - SUPRAVENTRICULAR TACHYCARDIA (8) Anemia Assessment/Plan: Worsening anemia i unit PRBC F/U H/H no obvious sourse. Code(s): D64.9 - ANEMIA, UNSPECIFIED Qualifiers: Anemia type: other cause Other causes of anemia: acute posthemorrhagic Qualified Code(s): D62 - Acute posthemorrhagic anemia; D62 - Acute posthemorrhagic anemia
[2017-05-15] MEDS ORDERED: POTASSIUM CHLORIDE 20 MEQ PREMIX IVPB 100 ML IVPB ONE ×2 (16:00→17:00)
[2017-05-15] MEDS: DEXTROSE 5% IVPB SCH (17:04)
[2017-05-15] MEDS: TRIMETHOPRIM IVPB SCH (17:04)
[2017-05-15] MEDS: SULFAMETHOXAZOLE IVPB SCH (17:04)
[2017-05-15] MEDS: WATER IVPB SCH (17:04)
[2017-05-15] MEDS ORDERED: PROPOFOL 100 ML ONE (19:04)
[2017-05-15] MEDS: LINEZOLID 600 MG PREMIX BAG 600 MG in PREMIX 300 IVPB SCH (22:05)
[2017-05-15] MEDS: CHLORHEXIDINE GLUCONATE 4% CLEANSER FOR DECOLONIZATION TP SCH (22:05)
--- NOTE | 2017-05-15 22:45 | PN ---
Progress Note, Physician Chief Complaint: Pt is intubated; now off Propofol, but remains unresponsive. 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 Patient is poor historian so her son at bedside was complementing the interview. According to him she has fallen 5 times in the last 3-4 months despite her use of a walker. She hit her head two weeks prior during one of the falls but did not seek attention. She did not lose consciousness during that fall. She describes the falls as "my legs giving out" which is corroborated by her son who witnessed one of the events. The son claims that she also has had difficulty keep track of time and with short term memory. Her memory issues are worsened at night. She lives at home alone and has had trouble with her ADLs. She is not on blood thinners. She has also had decreased food intake over the past few months although she has only lost a few pounds. She was seen by her PCP Dr. Mitchell earlier today and then sent to the ED for admission for altered mental status. Denies fevers, chills, nausea, vomiting, diarrhea, constipation, urinary symptoms, visual changes, headaches, presyncopal sensation, or palpitations. Her PCP is Dr. Mitchell. - Current Medication List Current Medications: Active Medications Chlorhexidine Gluconate (Hibiclens For Decolonization -) 1 applic TP HS [facility] Last Admin: 05/15/17 22:05 Dose: 1 applic Enoxaparin Sodium (Lovenox -) 30 mg SQ DAILY [facility] Last Admin: 05/15/17 09:49 Dose: 30 mg Hydrocortisone Sodium Succinate (Solu-Cortef -) 50 mg IVPUSH Q8H [facility] Last Admin: 05/15/17 22:04 Dose: 50 mg Norepinephrine Bitartrate 8, (000 mcg/ Dextrose) 500 mls @ 18.75 mls/hr IV TITR [facility]; 5 MCG/MIN PRN Reason: Protocol Last Titration: 05/15/17 05:00 Dose: 3 mcg/min Linezolid 600 mg/ (Miscellaneous) 300 mls @ 300 mls/hr IVPB Q12H [facility] PRN Reason: Protocol Last Admin: 05/15/17 22:05 Dose: 300 mls/hr Trimethoprim/Sulfamethoxazole (100 mg/ Dextrose) 256.25 mls @ 256.25 mls/hr IVPB Q8H-IV [facility] Last Admin: 05/15/17 17:04 Dose: 256.25 mls/hr Propofol (Diprivan -) 100 mls @ 3.066 mls/hr IVPB TITR [facility]; 10 MCG/KG/MIN PRN Reason: Protocol Last Admin: 05/15/17 20:20 Dose: 3.066 mls/hr Levothyroxine Sodium (Synthroid Injection -) 44 mcg IVPUSH DAILY@0700 [facility] Last Admin: 05/15/17 06:47 Dose: 44 mcg Mupirocin (Bactroban Ointment (For Decolonization) -) 1 applic NS BID [facility] Stop: 05/17/17 22:59 Last Admin: 05/15/17 22:04 Dose: 1 applic Nystatin (Mycostatin Cream -) 1 applic TP BID [facility] Last Admin: 05/15/17 22:10 Dose: 1 applic Pantoprazole Sodium (Protonix 40mg Ivpb (Pre-Docked)) 40 mg IVPB DAILY [facility] Last Admin: 05/15/17 09:51 Dose: 40 mg - Objective Vital Signs: Vital Signs Temperature 98 F 05/15/17 15:00 Pulse Rate 122 H 05/15/17 20:00 Respiratory Rate 24 05/15/17 22:19 Blood Pressure 119/59 05/15/17 20:00 O2 Sat by Pulse Oximetry (%) 100 05/15/17 20:00 Constitutional: Yes: Thin Eyes: Yes: Other (not opening eyes presently) Neck: Yes: Decreased ROM (intubated) Cardiovascular: Yes: Tachycardia, Murmur (2/6 systolic murmur, RSB-->axilla) Respiratory: Yes: Diminished Gastrointestinal: Yes: Soft Genitourinary: No: Anuria Musculoskeletal: Yes: Muscle Weakness Extremities: Yes: Cool Edema: No Peripheral Pulses WNL: No Peripheral Pulses: Left Doralis Pedis: 1+, Right Dorsalis Pedis: 1+ Integumentary: Yes: WNL Neurological: Yes: Weakness, Other (unresponsive) Psychiatric: Yes: Other (hx dementia) Labs: CBC, BMP 05/15/17 05:45 05/15/17 14:00 INR, PTT INR 1.11 (0.82-1.09) 05/12/17 01:35 Problem List - Problems (1) Acute respiratory failure with hypoxia and hypercapnia Code(s): J96.01 - ACUTE RESPIRATORY FAILURE WITH HYPOXIA J96.02 - ACUTE RESPIRATORY FAILURE WITH HYPERCAPNIA (2) Altered mental status, unspecified Code(s): R41.82 - ALTERED MENTAL STATUS, UNSPECIFIED (3) Anemia Code(s): D64.9 - ANEMIA, UNSPECIFIED Qualifiers: Anemia type: other cause Other causes of anemia: acute posthemorrhagic Qualified Code(s): D62 - Acute posthemorrhagic anemia; D62 - Acute posthemorrhagic anemia (4) Aspiration pneumonia Code(s): J69.0 - PNEUMONITIS DUE TO INHALATION OF FOOD AND VOMIT (5) Dementia Code(s): F03.90 - UNSPECIFIED DEMENTIA WITHOUT BEHAVIORAL DISTURBANCE (6) Fever Code(s): R50.9 - FEVER, UNSPECIFIED (7) Pancytopenia Assessment/Plan: WBCs no longer leukopenic. Profoundly anemic. 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 Code(s): D61.818 - OTHER PANCYTOPENIA (8) Shock Code(s): R57.9 - SHOCK, UNSPECIFIED (9) HTN (hypertension) Code(s): I10 - ESSENTIAL (PRIMARY) HYPERTENSION (10) Hypothyroidism Code(s): E03.9 - HYPOTHYROIDISM, UNSPECIFIED (11) Osteoporosis Code(s): M81.0 - AGE-RELATED OSTEOPOROSIS W/O CURRENT PATHOLOGICAL FRACTURE (12) Smoking Code(s): F17.200 - NICOTINE DEPENDENCE, UNSPECIFIED, UNCOMPLICATED (13) Acute on chronic systolic (congestive) heart failure Assessment/Plan: ECHO: mildly reduced LVEF; mild MR; moderate TR; mild AR; trivial pericardial effusion. presently remains on norepinephrine; off Vasopression. (Dopamine led to exacerbation of tachycardia). F/u BUN/Cr, electrolytes, Is and Os, weight. Avoid excessive dehydration. W/u regarding anemia; consider PRBCs. F/u BNP. Code(s): I50.23 - ACUTE ON CHRONIC SYSTOLIC (CONGESTIVE) HEART FAILURE (14) Sinus tachycardia Assessment/Plan: likely multifactorial: periodic fever; anemia; septic shock;hypoxia; intubation ; ?pain. Code(s): R00.0 - TACHYCARDIA, UNSPECIFIED (15) Hypomagnesemia Assessment/Plan: repleted; keep level 2-2.3. Code(s): E83.42 - HYPOMAGNESEMIA (16) Hypokalemia Assessment/Plan: 2.4 today; replete, and keep 4-4.5. Code(s): E87.6 - HYPOKALEMIA
[2017-05-15] MEDS: NOREPINEPHRINE BITARTRATE 8,000 MCG in DEXTROSE 5%-WATER - 492 ML IV SCH (22:50)
[2017-05-16] MEDS ORDERED: PT OWN MED DRAWER 7, Y5N ONE ×4 (01:35→20:05)
[2017-05-16] MEDS: TRIMETHOPRIM IVPB SCH ×3 (01:39→18:40)
[2017-05-16] MEDS: SULFAMETHOXAZOLE IVPB SCH ×3 (01:39→18:40)
[2017-05-16] MEDS: DEXTROSE 5% IVPB SCH ×3 (01:39→18:40)
[2017-05-16] MEDS: WATER IVPB SCH ×3 (01:39→18:40)
[2017-05-16 05:59] LABS: MCH 33.7 pg (25.7-33.7); MCHC 34.7 g/dl (32.0-36.0); MEAN PLT VOLUME 8.9 fl (7.5-11.1); PLATELET COUNT 52 K/MM3 (134-434); RDW 22.3 % (11.6-15.6); WHITE BLOOD COUNT 7.3 K/mm3 (4.0-10.0)
[2017-05-16 06:23] LABS: ANION GAP 10 (8-16); CALCIUM 7.3 mg/dL (8.5-10.1); CO2 19 mmol/L (21-32); CREATININE 1.4 mg/dL (0.55-1.02); GLUCOSE,RANDOM 203 mg/dL (74-106); MAGNESIUM 1.9 mg/dL (1.8-2.4)
[2017-05-16] MEDS: LEVOTHYROXINE SODIUM 100 MCG VIAL IVPUSH SCH (06:46)
[2017-05-16] MEDS: HYDROCORTISONE SOD SUCCINATE 100 MG/2 ML VIAL IVPUSH SCH ×3 (06:47→21:10)
[2017-05-16 07:30] LABS: PHOSPHOROUS 1.1 mg/dL (2.5-4.9)
[2017-05-16 08:27] LABS: ARTERIAL BLD GAS O2 SATURATION 99.1 % (90-98.9); ARTERIAL BLOOD GAS BASE EXCESS -6.3 meq/l (-2-2); ARTERIAL BLOOD GAS HCO3 17.4 meq/L (22-26); ARTERIAL BLOOD GAS pH 7.38 (7.35-7.45)
[2017-05-16 08:28] LABS: ALLENS TEST POSITIVE; ART PUNCT SITE RIGHT RADIAL; PT. ON O2? YES
[2017-05-16 08:29] LABS: LPM/O2% 40%; MECH. VENT. YES; TYPE OF O2 MECH VENT; VENT RATE 24; VT/PRESS 400
[2017-05-16] MEDS: ENOXAPARIN NA (PORCINE) 30 MG/0.3 ML DISP.SYRIN SQ SCH (10:00)
[2017-05-16] MEDS: NYSTATIN 100,000 UNIT/GM TOPICAL CREAM 15 GM TUBE TP SCH (10:00)
[2017-05-16] MEDS: PANTOPRAZOLE SODIUM 40 MG/100 ML PRE-DOCKED IVPB SCH (10:01)
[2017-05-16] MEDS: LINEZOLID 600 MG PREMIX BAG 600 MG in PREMIX 300 IVPB SCH ×2 (10:24→20:59)
--- NOTE | 2017-05-16 11:23 | PN ---
Progress Note, Physician Chief Complaint: Sedated on Ventilator, low H/h History of Present Illness: 82 yrs old admitted with frequent fall H/O HTN, CAD s/p stent, Hypothyroidism, admitted with fall prolonged hospitalization developed respiratory failure, intibayed on respirator multiple + Cutures. - Current Medication List Current Medications: Active Medications Chlorhexidine Gluconate (Hibiclens For Decolonization -) 1 applic TP HS [facility] Last Admin: 05/15/17 22:05 Dose: 1 applic Enoxaparin Sodium (Lovenox -) 30 mg SQ DAILY [facility] Last Admin: 05/16/17 10:00 Dose: 30 mg Hydrocortisone Sodium Succinate (Solu-Cortef -) 50 mg IVPUSH Q8H [facility] Last Admin: 05/16/17 06:47 Dose: 50 mg Norepinephrine Bitartrate 8, (000 mcg/ Dextrose) 500 mls @ 18.75 mls/hr IV TITR [facility]; 5 MCG/MIN PRN Reason: Protocol Last Admin: 05/15/17 22:50 Dose: Not Given Linezolid 600 mg/ (Miscellaneous) 300 mls @ 300 mls/hr IVPB Q12H [facility] PRN Reason: Protocol Last Admin: 05/16/17 10:24 Dose: 300 mls/hr Trimethoprim/Sulfamethoxazole (100 mg/ Dextrose) 256.25 mls @ 256.25 mls/hr IVPB Q8H-IV [facility] Last Admin: 05/16/17 09:52 Dose: 256.25 mls/hr Propofol (Diprivan -) 100 mls @ 3.066 mls/hr IVPB TITR [facility]; 10 MCG/KG/MIN PRN Reason: Protocol Last Titration: 05/15/17 22:50 Dose: 20 mcg/kg/min Levothyroxine Sodium (Synthroid Injection -) 44 mcg IVPUSH DAILY@0700 [facility] Last Admin: 05/16/17 06:46 Dose: 44 mcg Mupirocin (Bactroban Ointment (For Decolonization) -) 1 applic NS BID [facility] Stop: 05/17/17 22:59 Last Admin: 05/15/17 22:04 Dose: 1 applic Nystatin (Mycostatin Cream -) 1 applic TP BID [facility] Last Admin: 05/16/17 10:00 Dose: 1 applic Pantoprazole Sodium (Protonix 40mg Ivpb (Pre-Docked)) 40 mg IVPB DAILY [facility] Last Admin: 05/16/17 10:01 Dose: 40 mg - Objective Vital Signs: Vital Signs Temperature 98.1 F 05/16/17 10:00 Pulse Rate 90 05/16/17 10:00 Respiratory Rate 24 05/16/17 10:25 Blood Pressure 112/69 05/16/17 10:25 O2 Sat by Pulse Oximetry (%) 100 05/16/17 09:55 Elderly F intubated and sedated, sick looking HEENT: ET tube at place, NG tube feeding, Mm dry + anemia, PERRLA EOMI NECK: No JVD No Bruit CHEST: B/L Crepts CVs: S1S2 Irregular NILO at base ABD: No distention, non tender Bs + EXT: + edema feet, no calf tenderness 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 Code(s): J96.01 - ACUTE RESPIRATORY FAILURE WITH HYPOXIA J96.02 - ACUTE RESPIRATORY FAILURE WITH HYPERCAPNIA (2) Aspiration pneumonia Assessment/Plan: On IV Abx F/U cultures and fever Curve. Code(s): J69.0 - PNEUMONITIS DUE TO INHALATION OF FOOD AND VOMIT (3) Anemia Assessment/Plan: Worsening anemia i unit PRBC F/U H/H no obvious sourse. Code(s): D64.9 - ANEMIA, UNSPECIFIED Qualifiers: Anemia type: other cause Other causes of anemia: acute posthemorrhagic Qualified Code(s): D62 - Acute posthemorrhagic anemia; D62 - Acute posthemorrhagic anemia (4) Hypothyroidism Assessment/Plan: on levothyroxine Code(s): E03.9 - HYPOTHYROIDISM, UNSPECIFIED
[2017-05-16] MEDS: MUPIROCIN 2% TOPICAL OINTMENT FOR DECOLONIZATION NS SCH ×2 (13:11→21:08)
[2017-05-16] MEDS: NOREPINEPHRINE BITARTRATE 8,000 MCG in DEXTROSE 5%-WATER - 492 ML IV SCH (13:11)
--- NOTE | 2017-05-16 14:28 | PN ---
Progress Note, Physician History of Present Illness: continues to be intubated no gross changes - Current Medication List Current Medications: Active Medications Chlorhexidine Gluconate (Hibiclens For Decolonization -) 1 applic TP HS [facility] Last Admin: 05/15/17 22:05 Dose: 1 applic Enoxaparin Sodium (Lovenox -) 30 mg SQ DAILY [facility] Last Admin: 05/16/17 10:00 Dose: 30 mg Hydrocortisone Sodium Succinate (Solu-Cortef -) 50 mg IVPUSH Q8H [facility] Last Admin: 05/16/17 13:11 Dose: 50 mg Norepinephrine Bitartrate 8, (000 mcg/ Dextrose) 500 mls @ 18.75 mls/hr IV TITR [facility]OC[facility]NE; 5 MCG/MIN PRN Reason: Protocol Last Admin: 05/16/17 13:11 Dose: Not Given Linezolid 600 mg/ (Miscellaneous) 300 mls @ 300 mls/hr IVPB Q12H [facility] PRN Reason: Protocol Last Admin: 05/16/17 10:24 Dose: 300 mls/hr Trimethoprim/Sulfamethoxazole (100 mg/ Dextrose) 256.25 mls @ 256.25 mls/hr IVPB Q8H-IV [facility] Last Admin: 05/16/17 09:52 Dose: 256.25 mls/hr Propofol (Diprivan -) 100 mls @ 3.066 mls/hr IVPB TITR JOCELYNE; 10 MCG/KG/MIN PRN Reason: Protocol Last Titration: 05/15/17 22:50 Dose: 20 mcg/kg/min Levothyroxine Sodium (Synthroid Injection -) 44 mcg IVPUSH DAILY@0700 [facility] Last Admin: 05/16/17 06:46 Dose: 44 mcg Mupirocin (Bactroban Ointment (For Decolonization) -) 1 applic NS BID [facility] Stop: 05/17/17 22:59 Last Admin: 05/16/17 13:11 Dose: 1 applic Nystatin (Mycostatin Cream -) 1 applic TP BID [facility] Last Admin: 05/16/17 10:00 Dose: 1 applic Pantoprazole Sodium (Protonix 40mg Ivpb (Pre-Docked)) 40 mg IVPB DAILY [facility] Last Admin: 05/16/17 10:01 Dose: 40 mg - Objective Vital Signs: Vital Signs Temperature 98.1 F 05/16/17 10:00 Pulse Rate 90 05/16/17 10:00 Respiratory Rate 25 H 05/16/17 14:16 Blood Pressure 112/69 05/16/17 12:00 O2 Sat by Pulse Oximetry (%) 100 05/16/17 09:55 Constitutional: Yes: Other Cardiovascular: Yes: Regular Rate and Rhythm Respiratory: Yes: Intubated, Mechanically Ventilated Gastrointestinal: Yes: Normal Bowel Sounds, Soft Musculoskeletal: Yes: Other Extremities: Yes: Other Edema: LLE: 1+, RLE: 1+ Labs: CBC, BMP 05/16/17 05:45 05/16/17 05:45 INR, PTT INR 1.11 (0.82-1.09) 05/12/17 01:35 Assessment/Plan Problem List - Problems (1) UTI (urinary tract infection) Code(s): N39.0 - URINARY TRACT INFECTION, SITE NOT SPECIFIED (2) Dementia Code(s): F03.90 - UNSPECIFIED DEMENTIA WITHOUT BEHAVIORAL DISTURBANCE (3) Pancytopenia Code(s): D61.818 - OTHER PANCYTOPENIA (4) CHF (congestive heart failure) Code(s): I50.9 - HEART FAILURE, UNSPECIFIED Qualifiers: Congestive heart failure type: unspecified congestive heart failure type Congestive heart failure chronicity: chronic Qualified Code(s): I50.9 - Heart failure, unspecified (5) HTN (hypertension) Code(s): I10 - ESSENTIAL (PRIMARY) HYPERTENSION (6) Hypothyroidism Code(s): E03.9 - HYPOTHYROIDISM, UNSPECIFIED Aspiration pneumonia Code(s): J69.0 - PNEUMONITIS DUE TO INHALATION OF FOOD AND VOMIT lactic acidosis vanco level noted,will hold vanco today check vanco level tomorrow if less than 15 give one gram plan continue nutrition continue abx close watch nutrition support rest as per icu cx results noted cc time 40 min
[2017-05-16] MEDS ORDERED: VANCOMYCIN 750 MG in DEXTROSE 5%-WATER - 250 ML IVPB ONE (16:00)
--- NOTE | 2017-05-16 17:08 | PN ---
Progress Note (short form) - Note Progress Note: PULM/CCM Progress Note: Seen and examined in the ICU -cont decreasing vasopressors -still very blunted mental status Active Medications Chlorhexidine Gluconate (Hibiclens For Decolonization -) 1 applic TP HS [facility] Last Admin: 05/15/17 22:05 Dose: 1 applic Enoxaparin Sodium (Lovenox -) 30 mg SQ DAILY [facility] Last Admin: 05/16/17 10:00 Dose: 30 mg Hydrocortisone Sodium Succinate (Solu-Cortef -) 50 mg IVPUSH Q8H [facility] Last Admin: 05/16/17 13:11 Dose: 50 mg Norepinephrine Bitartrate 8, (000 mcg/ Dextrose) 500 mls @ 18.75 mls/hr IV TITR JOCELYNE; 5 MCG/MIN PRN Reason: Protocol Last Admin: 05/16/17 13:11 Dose: Not Given Linezolid 600 mg/ (Miscellaneous) 300 mls @ 300 mls/hr IVPB Q12H [facility] PRN Reason: Protocol Last Admin: 05/16/17 10:24 Dose: 300 mls/hr Trimethoprim/Sulfamethoxazole (100 mg/ Dextrose) 256.25 mls @ 256.25 mls/hr IVPB Q8H-IV [facility] Last Admin: 05/16/17 09:52 Dose: 256.25 mls/hr Propofol (Diprivan -) 100 mls @ 3.066 mls/hr IVPB TITR JOCELYNE; 10 MCG/KG/MIN PRN Reason: Protocol Last Titration: 05/15/17 22:50 Dose: 20 mcg/kg/min Levothyroxine Sodium (Synthroid Injection -) 44 mcg IVPUSH DAILY@0700 [facility] Last Admin: 05/16/17 06:46 Dose: 44 mcg Mupirocin (Bactroban Ointment (For Decolonization) -) 1 applic NS BID [facility] Stop: 05/17/17 22:59 Last Admin: 05/16/17 13:11 Dose: 1 applic Nystatin (Mycostatin Cream -) 1 applic TP BID [facility] Last Admin: 05/16/17 10:00 Dose: 1 applic Pantoprazole Sodium (Protonix 40mg Ivpb (Pre-Docked)) 40 mg IVPB DAILY [facility] Last Admin: 05/16/17 10:01 Dose: 40 mg Vital Signs Temp 98.6 F 05/16/17 14:58 Pulse 97 H 05/16/17 16:00 Resp 32 H 05/16/17 16:00 BP 97/60 05/16/17 16:00 Pulse Ox 100 05/16/17 09:55 Intake & Output 05/15/17 05/16/17 05/16/17 23:59 11:59 23:59 Intake Total 400 1414 Output Total 1500 500 Balance -1100 914 Weight 53.887 kg Intake: IV 294 Diprivan - 100 ml @ 5 MCG 120 /KG/MIN 1.551 mls/hr IVPB TITR JOCELYNE Rx#:[id number] Levophed - 8,000 Mcg In 36 D5w - 492 ml @ 5 MCG/MIN 18.75 mls/hr IV TITR JOCELYNE Rx#:[id number] Diprivan - 100 ml @ 10 138 MCG/KG/MIN 3.066 mls/hr IVPB TITR JOCELYNE Rx#: [id number] IVPB 400 400 Tube Feeding 480 Tube Irrigant 240 Output: Urine 1500 500 Beck 1500 500 Other: Voiding Method Indwelling Catheter Indwelling Catheter Bowel Movement Yes Yes Yes: flexiseal Weight Measurement Method Built in [facility] Exam: General: frail woman sedated and intubated HEENT: PERRL, anicteric, no JVD CV: S1, S2, RRR Pulm: diminished Abd: SNTND, +BS Ext: WWP, +2 pulses Neuro: RASS -3/4, grimace to noxious stimuli CBCD WBC 7.3 K/mm3 (4.0-10.0) 05/16/17 05:45 RBC 2.05 M/mm3 (3.60-5.2) L 05/16/17 05:45 Hgb 6.9 GM/dL (10.7-15.3) L* 05/16/17 05:45 Hct 19.9 % (32.4-45.2) L 05/16/17 05:45 MCV 97.0 fl (80-96) H 05/16/17 05:45 MCHC 34.7 g/dl (32.0-36.0) 05/16/17 05:45 RDW 22.3 % (11.6-15.6) H 05/16/17 05:45 Plt Count 52 K/MM3 (134-434) L D 05/16/17 05:45 MPV 8.9 fl (7.5-11.1) 05/16/17 05:45 CMP Sodium 142 mmol/L (136-145) 05/16/17 05:45 Potassium 3.9 mmol/L (3.5-5.1) D 05/16/17 05:45 Chloride 113 mmol/L (98-107) H 05/16/17 05:45 Carbon Dioxide 19 mmol/L (21-32) L 05/16/17 05:45 Anion Gap 10 (8-16) 05/16/17 05:45 BUN 41 mg/dL (7-18) H 05/16/17 05:45 Creatinine 1.4 mg/dL (0.55-1.02) H 05/16/17 05:45 Creat Clearance w eGFR 27.07 (>60) 05/15/17 05:45 Calcium 7.3 mg/dL (8.5-10.1) L 05/16/17 05:45 Total Bilirubin 0.7 mg/dL (0.2-1.0) D 05/15/17 05:45 AST 22 U/L (15-37) D 05/15/17 05:45 ALT 34 U/L (12-78) 05/15/17 05:45 Alkaline Phosphatase 106 U/L (45-117) D 05/15/17 05:45 Total Protein 4.2 g/dl (6.4-8.2) L 05/15/17 05:45 Albumin 1.4 g/dl (3.4-5.0) L 05/15/17 05:45 Microbiology 05/12/17 02:00 Blood - Peripheral Venous Blood Culture - Preliminary NO GROWTH OBTAINED AFTER 96 HOURS, INCUBATION TO CONTINUE FOR 1 DAYS. 05/12/17 02:00 Blood - Peripheral Venous Blood Culture - Preliminary NO GROWTH OBTAINED AFTER 96 HOURS, INCUBATION TO CONTINUE FOR 1 DAYS. 05/12/17 15:00 Stool Salmonella/Shigella Culture - Final Mr S Aureus 05/12/17 15:00 Stool Campylobacter Culture - Final NO GROWTH OF CAMPYLOBACTER SPECIES OBTAINED 05/12/17 15:00 Stool Yersinia Culture - Final NO GROWTH OF YERSINIA SPECIES OBTAINED 05/12/17 15:00 Stool Vibrio Culture - Final NO GROWTH OF VIBRIO SPECIES OBTAINED 05/12/17 15:00 Stool Escherichia coli 0157 Culture - Final NO GROWTH OF E COLI 0157 OBTAINED 05/12/17 01:35 Urine - Urine - Catheterized Urine Culture - Final Vr Ec Faecium 05/12/17 01:00 Sputum - Endotrachea Suction/Ventilator Gram Stain - Final 05/12/17 01:00 Sputum - Endotrachea Suction/Ventilator Sputum Culture - Final S Aureus Stenotrophomon.(X.)Maltophilia 05/12/17 15:00 Stool Gram Stain - Final 05/12/17 01:35 Stool Clostridium difficile Antigen (TAMEKA) - Final 05/12/17 01:35 Stool Clostridium difficile Toxin Assay - Final 04/10/17 13:25 Blood - Peripheral Venous Blood Culture - Final NO GROWTH AFTER 5 DAYS INCUBATION 04/10/17 13:25 Blood - Peripheral Venous Blood Culture - Final NO GROWTH AFTER 5 DAYS INCUBATION 04/11/17 17:35 Urine - Urine - Catheterized Urine Culture - Final NO GROWTH OBTAINED 04/03/17 16:30 Blood - Peripheral Venous Blood Culture - Final NO GROWTH AFTER 5 DAYS INCUBATION 04/04/17 08:00 Urine - Urine Clean Catch Urine Culture - Final Diphtheroid/Corynebacterium 04/01/17 18:15 Urine - Urine Clean Catch Urine Culture - Final Alpha Hemolytic Streptococcus Problem List - Problems (1) Altered mental status, unspecified Code(s): R41.82 - ALTERED MENTAL STATUS, UNSPECIFIED (2) Aspiration pneumonia Code(s): J69.0 - PNEUMONITIS DUE TO INHALATION OF FOOD AND VOMIT (3) Dementia Code(s): F03.90 - UNSPECIFIED DEMENTIA WITHOUT BEHAVIORAL DISTURBANCE (4) Acute respiratory failure with hypoxia and hypercapnia Code(s): J96.01 - ACUTE RESPIRATORY FAILURE WITH HYPOXIA J96.02 - ACUTE RESPIRATORY FAILURE WITH HYPERCAPNIA (5) Pancytopenia Code(s): D61.818 - OTHER PANCYTOPENIA (6) CHF (congestive heart failure) Code(s): I50.9 - HEART FAILURE, UNSPECIFIED Qualifiers: Congestive heart failure type: unspecified congestive heart failure type Congestive heart failure chronicity: chronic Qualified Code(s): I50.9 - Heart failure, unspecified; I50.9 - Heart failure, unspecified; I50.9 - Heart failure, unspecified; I50.9 - Heart failure, unspecified (7) Hypothyroidism Code(s): E03.9 - HYPOTHYROIDISM, UNSPECIFIED (8) Paroxysmal SVT (supraventricular tachycardia) Code(s): I47.1 - SUPRAVENTRICULAR TACHYCARDIA (9) Shock Code(s): R57.9 - SHOCK, UNSPECIFIED Assessment/Plan Wean pressors as tolerated goal MAP 60-70 Wean steroids to off Sedation vacation HOB >30, oral care Daily SBTs: tolerating PSV 8, however unable extubate given AMS and inability to protect airway Titrate FiO@ for sat 89-94% ABX coverage per ID: zosyn and vanco If fails to wean consider stenotropomonas coverage Strict I&O Repleat lytes Follow ABG Follow CXR Overall prognosis appears grave given frail state and failure to thrive, continue GOC discussions with family Jessenia ESTEBAN Pulm/CCM CCT: 35m
--- NOTE | 2017-05-16 20:25 | PN ---
Progress Note, Physician Chief Complaint: Pt is intubated; sedated (off pressors; again on Propofol). 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 Patient is poor historian so her son at bedside was complementing the interview. According to him she has fallen 5 times in the last 3-4 months despite her use of a walker. She hit her head two weeks prior during one of the falls but did not seek attention. She did not lose consciousness during that fall. She describes the falls as "my legs giving out" which is corroborated by her son who witnessed one of the events. The son claims that she also has had difficulty keep track of time and with short term memory. Her memory issues are worsened at night. She lives at home alone and has had trouble with her ADLs. She is not on blood thinners. She has also had decreased food intake over the past few months although she has only lost a few pounds. She was seen by her PCP Dr. Mitchell earlier today and then sent to the ED for admission for altered mental status. Denies fevers, chills, nausea, vomiting, diarrhea, constipation, urinary symptoms, visual changes, headaches, presyncopal sensation, or palpitations. Her PCP is Dr. Mitchell. - Current Medication List Current Medications: Active Medications Chlorhexidine Gluconate (Hibiclens For Decolonization -) 1 applic TP HS [facility] Last Admin: 05/15/17 22:05 Dose: 1 applic Enoxaparin Sodium (Lovenox -) 30 mg SQ DAILY [facility] Last Admin: 05/16/17 10:00 Dose: 30 mg Hydrocortisone Sodium Succinate (Solu-Cortef -) 50 mg IVPUSH Q8H [facility] Last Admin: 05/16/17 13:11 Dose: 50 mg Norepinephrine Bitartrate 8, (000 mcg/ Dextrose) 500 mls @ 18.75 mls/hr IV TITR JOCELYNE; 5 MCG/MIN PRN Reason: Protocol Last Admin: 05/16/17 13:11 Dose: Not Given Linezolid 600 mg/ (Miscellaneous) 300 mls @ 300 mls/hr IVPB Q12H JOCELYNE PRN Reason: Protocol Last Admin: 10/22/17 10:24 Dose: 300 mls/hr Trimethoprim/Sulfamethoxazole (100 mg/ Dextrose) 256.25 mls @ 256.25 mls/hr IVPB Q8H-IV [facility] Last Admin: 05/16/17 18:40 Dose: 256.25 mls/hr Propofol (Diprivan -) 100 mls @ 3.066 mls/hr IVPB TITR JOCELYNE; 10 MCG/KG/MIN PRN Reason: Protocol Last Titration: 05/15/17 22:50 Dose: 20 mcg/kg/min Levothyroxine Sodium (Synthroid Injection -) 44 mcg IVPUSH DAILY@0700 [facility] Last Admin: 05/16/17 06:46 Dose: 44 mcg Mupirocin (Bactroban Ointment (For Decolonization) -) 1 applic NS BID [facility] Stop: 05/17/17 22:59 Last Admin: 05/16/17 13:11 Dose: 1 applic Nystatin (Mycostatin Cream -) 1 applic TP BID [facility] Last Admin: 05/16/17 10:00 Dose: 1 applic Pantoprazole Sodium (Protonix 40mg Ivpb (Pre-Docked)) 40 mg IVPB DAILY [facility] Last Admin: 05/16/17 10:01 Dose: 40 mg - Objective Vital Signs: Vital Signs Temperature 98.4 F 05/16/17 18:00 Pulse Rate 91 H 05/16/17 18:00 Respiratory Rate 32 H 05/16/17 19:34 Blood Pressure 107/70 05/16/17 18:00 O2 Sat by Pulse Oximetry (%) 100 05/16/17 09:55 Constitutional: Yes: Thin Eyes: Yes: Other (not opening eyes) HENT: Yes: Other (intubated) Neck: Yes: Decreased ROM (intubated) Cardiovascular: Yes: Regular Rate and Rhythm, S1, S2 Respiratory: Yes: Diminished Gastrointestinal: Yes: Soft Genitourinary: No: Anuria Musculoskeletal: Yes: Muscle Weakness Extremities: Yes: Cool Edema: No Peripheral Pulses WNL: No Peripheral Pulses: Left Doralis Pedis: 1+, Right Dorsalis Pedis: 1+ Neurological: Yes: Unresponsive Psychiatric: Yes: Other (dementia) Labs: CBC, BMP 05/16/17 05:45 05/16/17 05:45 INR, PTT INR 1.11 (0.82-1.09) 05/12/17 01:35 Abnormal Lab Results 05/16/17 05/16/17 05/16/17 05:45 05:45 08:25 RBC 2.05 L Hgb 6.9 L* Hct 19.9 L MCV 97.0 H RDW 22.3 H Plt Count 52 L D ABG pCO2 at Pt Temp 30.5 L ABG pO2 at Pt Temp 115.0 H D ABG HCO3 17.4 L ABG O2 Sat (Measured) 99.1 H ABG Base Excess -6.3 L Chloride 113 H Carbon Dioxide 19 L BUN 41 H Creatinine 1.4 H Random Glucose 203 H D Calcium 7.3 L Phosphorus 1.1 L* D Crossmatch 05/16/17 11:52 RBC Hgb Hct MCV RDW Plt Count ABG pCO2 at Pt Temp ABG pO2 at Pt Temp ABG HCO3 ABG O2 Sat (Measured) ABG Base Excess Chloride Carbon Dioxide BUN Creatinine Random Glucose Calcium Phosphorus Crossmatch See Detail - ....Imaging Chest X-ray: Image Reviewed (CHF (no significant change)) Other: Image Reviewed (telemetry: NSR; periods of sinus tachycardia) Problem List - Problems (1) Acute respiratory failure with hypoxia and hypercapnia Assessment/Plan: remains intubated. Code(s): J96.01 - ACUTE RESPIRATORY FAILURE WITH HYPOXIA J96.02 - ACUTE RESPIRATORY FAILURE WITH HYPERCAPNIA (2) Altered mental status, unspecified Code(s): R41.82 - ALTERED MENTAL STATUS, UNSPECIFIED (3) Anemia Code(s): D64.9 - ANEMIA, UNSPECIFIED Qualifiers: Anemia type: other cause Other causes of anemia: acute posthemorrhagic Qualified Code(s): D62 - Acute posthemorrhagic anemia; D62 - Acute posthemorrhagic anemia (4) Aspiration pneumonia Code(s): J69.0 - PNEUMONITIS DUE TO INHALATION OF FOOD AND VOMIT (5) Dementia Code(s): F03.90 - UNSPECIFIED DEMENTIA WITHOUT BEHAVIORAL DISTURBANCE (6) Fever Code(s): R50.9 - FEVER, UNSPECIFIED (7) Pancytopenia Assessment/Plan: WBCs no longer leukopenic. Profoundly anemic; plateltes remain low. f/u with clean energy policy analyst. Code(s): D61.818 - OTHER PANCYTOPENIA (8) Shock Assessment/Plan: Off pressors. Continue fluids; antibiotics. Code(s): R57.9 - SHOCK, UNSPECIFIED (9) HTN (hypertension) Code(s): I10 - ESSENTIAL (PRIMARY) HYPERTENSION (10) Hypothyroidism Code(s): E03.9 - HYPOTHYROIDISM, UNSPECIFIED (11) Osteoporosis Code(s): M81.0 - AGE-RELATED OSTEOPOROSIS W/O CURRENT PATHOLOGICAL FRACTURE (12) Smoking Code(s): F17.200 - NICOTINE DEPENDENCE, UNSPECIFIED, UNCOMPLICATED (13) Acute on chronic systolic (congestive) heart failure Assessment/Plan: ECHO: mildly reduced LVEF; mild MR; moderate TR; mild AR; trivial pericardial effusion. Now off pressors. F/u BUN/Cr, electrolytes, Is and Os, weight. Avoid excessive dehydration. F/u BNP. Code(s): I50.23 - ACUTE ON CHRONIC SYSTOLIC (CONGESTIVE) HEART FAILURE (14) Sinus tachycardia Assessment/Plan: improved HR. likely multifactorial: periodic fever; anemia; septic shock;hypoxia; intubation ; ?pain. Code(s): R00.0 - TACHYCARDIA, UNSPECIFIED (15) Hypomagnesemia Assessment/Plan: repleted; 1.9 today. Code(s): E83.42 - HYPOMAGNESEMIA (16) Hypokalemia Assessment/Plan: now WNL. Code(s): E87.6 - HYPOKALEMIA (17) Hypophosphatemia Assessment/Plan: 1.1; replete, and f/u level. Code(s): E83.39 - OTHER DISORDERS OF PHOSPHORUS METABOLISM
[2017-05-16] MEDS: PROPOFOL 100 ML IVPB SCH (21:07)
[2017-05-16] MEDS: CHLORHEXIDINE GLUCONATE 4% CLEANSER FOR DECOLONIZATION TP SCH (21:09)
[2017-05-17] MEDS: NYSTATIN 100,000 UNIT/GM TOPICAL CREAM 15 GM TUBE TP SCH ×3 (00:20→21:13)
[2017-05-17] MEDS: SULFAMETHOXAZOLE IVPB SCH ×3 (01:11→17:32)
[2017-05-17] MEDS: TRIMETHOPRIM IVPB SCH ×3 (01:11→17:32)
[2017-05-17] MEDS: WATER IVPB SCH ×3 (01:11→17:32)
[2017-05-17] MEDS: DEXTROSE 5% IVPB SCH ×3 (01:11→17:32)
[2017-05-17] MEDS: PROPOFOL 100 ML IVPB SCH ×3 (02:02→19:43)
[2017-05-17 05:51] LABS: MCH 32.6 pg (25.7-33.7); MCHC 35.2 g/dl (32.0-36.0); MEAN CELL VOLUME 92.7 fl (80-96); MEAN PLT VOLUME 8.7 fl (7.5-11.1); PLATELET COUNT 44 K/MM3 (134-434); WHITE BLOOD COUNT 8.3 K/mm3 (4.0-10.0)
[2017-05-17] MEDS: HYDROCORTISONE SOD SUCCINATE 100 MG/2 ML VIAL IVPUSH SCH ×3 (05:51→21:18)
[2017-05-17 06:08] LABS: ALBUMIN 1.4 g/dl (3.4-5.0); ANION GAP 11 (8-16); CO2 20 mmol/L (21-32); GLUCOSE,RANDOM 178 mg/dL (74-106)
[2017-05-17 06:12] LABS: ALK PHOS 257 U/L (45-117); BILIRUBIN,TOTAL 0.6 mg/dL (0.2-1.0); CREATININE 1.2 mg/dL (0.55-1.02); SGOT/AST 83 U/L (15-37); SGPT/ALT 40 U/L (12-78); TOT PROT 4.1 g/dl (6.4-8.2)
[2017-05-17] MEDS: LEVOTHYROXINE SODIUM 100 MCG VIAL IVPUSH SCH (06:14)
[2017-05-17 08:31] LABS: PLATELET ESTIMATE MARKEDLY DECREASED (NORMAL); TOTAL CELLS COUNTED 100
[2017-05-17] MEDS ORDERED: PT OWN MED DRAWER 7, Y5N ONE ×3 (09:08→19:31)
[2017-05-17] MEDS: LINEZOLID 600 MG PREMIX BAG 600 MG in PREMIX 300 IVPB SCH ×2 (10:39→19:44)
--- NOTE | 2017-05-17 10:46 | PN ---
Progress Note, Physician Chief Complaint: Unable to obtain - Current Medication List Current Medications: Active Medications Chlorhexidine Gluconate (Hibiclens For Decolonization -) 1 applic TP HS [facility] Last Admin: 05/16/17 21:09 Dose: 1 applic Enoxaparin Sodium (Lovenox -) 30 mg SQ DAILY [facility] Last Admin: 05/16/17 10:00 Dose: 30 mg Hydrocortisone Sodium Succinate (Solu-Cortef -) 50 mg IVPUSH Q8H [facility] Last Admin: 05/17/17 05:51 Dose: 50 mg Norepinephrine Bitartrate 8, (000 mcg/ Dextrose) 500 mls @ 18.75 mls/hr IV TITR JOCELYNE; 5 MCG/MIN PRN Reason: Protocol Last Admin: 05/16/17 13:11 Dose: Not Given Linezolid 600 mg/ (Miscellaneous) 300 mls @ 300 mls/hr IVPB Q12H J[facility]NE PRN Reason: Protocol Last Admin: 05/17/17 10:39 Dose: 300 mls/hr Trimethoprim/Sulfamethoxazole (100 mg/ Dextrose) 256.25 mls @ 256.25 mls/hr IVPB Q8H-IV [facility] Last Admin: 05/17/17 10:39 Dose: 256.25 mls/hr Propofol (Diprivan -) 100 mls @ 3.066 mls/hr IVPB TITR JOCELYNE; 10 MCG/KG/MIN PRN Reason: Protocol Last Admin: 05/17/17 09:34 Dose: 12.264 mls/hr Levothyroxine Sodium (Synthroid Injection -) 44 mcg IVPUSH DAILY@0700 [facility] Last Admin: 05/17/17 06:14 Dose: 44 mcg Mupirocin (Bactroban Ointment (For Decolonization) -) 1 applic NS BID [facility] Stop: 05/17/17 22:59 Last Admin: 05/16/17 21:08 Dose: 1 applic Nystatin (Mycostatin Cream -) 1 applic TP BID [facility] Last Admin: 05/17/17 00:20 Dose: 1 applic Pantoprazole Sodium (Protonix 40mg Ivpb (Pre-Docked)) 40 mg IVPB DAILY [facility] Last Admin: 05/16/17 10:01 Dose: 40 mg - Objective Vital Signs: Vital Signs Temperature 36.7 C 05/17/17 06:00 Pulse Rate 100 H 05/17/17 09:39 Respiratory Rate 22 05/17/17 09:40 Blood Pressure 118/69 05/17/17 07:50 O2 Sat by Pulse Oximetry (%) 97 05/17/17 09:40 Constitutional: Yes: No Distress, Other (sedated) Cardiovascular: Yes: Tachycardia. No: Gallop, Murmur, Rub Respiratory: Yes: Regular, Intubated, Mechanically Ventilated, Rhonchi. No: Rales, Wheezes Gastrointestinal: Yes: Normal Bowel Sounds, Soft. No: Distention, Tenderness Extremities: Yes: WNL Edema: No Labs: CBC, BMP 05/17/17 05:00 05/17/17 05:00 INR, PTT INR 1.11 (0.82-1.09) 05/12/17 01:35 Problem List - Problems (1) UTI (urinary tract infection) Code(s): N39.0 - URINARY TRACT INFECTION, SITE NOT SPECIFIED (2) Dementia Code(s): F03.90 - UNSPECIFIED DEMENTIA WITHOUT BEHAVIORAL DISTURBANCE (3) Pancytopenia Code(s): D61.818 - OTHER PANCYTOPENIA (4) CHF (congestive heart failure) Code(s): I50.9 - HEART FAILURE, UNSPECIFIED Qualifiers: Congestive heart failure type: unspecified congestive heart failure type Congestive heart failure chronicity: chronic Qualified Code(s): I50.9 - Heart failure, unspecified; I50.9 - Heart failure, unspecified; I50.9 - Heart failure, unspecified; I50.9 - Heart failure, unspecified (5) HTN (hypertension) Code(s): I10 - ESSENTIAL (PRIMARY) HYPERTENSION (6) Hypothyroidism Code(s): E03.9 - HYPOTHYROIDISM, UNSPECIFIED (7) Aspiration pneumonia Code(s): J69.0 - PNEUMONITIS DUE TO INHALATION OF FOOD AND VOMIT (8) Anemia Code(s): D64.9 - ANEMIA, UNSPECIFIED Qualifiers: Anemia type: other cause Other causes of anemia: acute posthemorrhagic Qualified Code(s): D62 - Acute posthemorrhagic anemia; D62 - Acute posthemorrhagic anemia (9) Septic shock Code(s): A41.9 - SEPSIS, UNSPECIFIED ORGANISM R65.21 - SEVERE SEPSIS WITH SEPTIC SHOCK (10) Acute respiratory failure Code(s): J96.00 - ACUTE RESPIRATORY FAILURE, UNSP W HYPOXIA OR HYPERCAPNIA Assessment/Plan (1) Pneumonia Assessment/Plan: -ID following and appreciate assistance -growing stenotrophomonas -on bactrim Code(s): N39.0 - URINARY TRACT INFECTION, SITE NOT SPECIFIED (2) Elevated troponins Assessment/Plan: -stress induced -cardiology monitoring (3) Septic shock Assessment/Plan: -now off pressors -continue ventilator support (4) CHF (congestive heart failure) Assessment/Plan: -ECHO reviewed Code(s): I50.9 - HEART FAILURE, UNSPECIFIED Qualifiers: Congestive heart failure type: unspecified congestive heart failure type Congestive heart failure chronicity: chronic Qualified Code(s): I50.9 - Heart failure, unspecified (5) HTN (hypertension) Assessment/Plan: -off pressors -monitor, not requiring antihypertensives at this time Code(s): I10 - ESSENTIAL (PRIMARY) HYPERTENSION (6) Hypothyroidism Assessment/Plan: -continue IV synthroid Code(s): E03.9 - HYPOTHYROIDISM, UNSPECIFIED (7) Respiratory failure -currently ventilated -pulmonary following -weaning steroids (8) Dementia -present and chronic (9) UTI -growing VRE -on linezolid per ID 36 minutes spent in critical care time
--- NOTE | 2017-05-17 12:22 | PN ---
Teaching Attending Note Name of Resident: Reshma Recio ATTENDING PHYSICIAN STATEMENT I saw and evaluated the patient. I reviewed the resident's note and discussed the case with the resident. I agree with the resident's findings and plan as documented. SUBJECTIVE: Patient seen and examined in the ICU. Remains intubated and sedated. AC Mode of vent. Currently off pressors. Minimal response but has not been completely off sedation. Intake & Output 05/14/17 05/15/17 05/16/17 05/17/17 23:59 23:59 23:59 23:59 Intake Total 3867 1448.4 4186 1424.8 Output Total 1500 2200 900 700 Balance 2367 -751.6 3286 724.8 Weight 112 lb 10.499 oz 118 lb 12.8 oz Last Vital Signs Temp Pulse Resp BP Pulse Ox 98.1 F 100 H 23 129/75 97 05/17/17 06:00 05/17/17 10:00 05/17/17 11:05 05/17/17 10:00 05/17/17 09:40 Active Medications Chlorhexidine Gluconate (Hibiclens For Decolonization -) 1 applic TP HS JOCELYNE Last Admin: 05/16/17 21:09 Dose: 1 applic Enoxaparin Sodium (Lovenox -) 30 mg SQ DAILY JOCELYNE Last Admin: 05/16/17 10:00 Dose: 30 mg Hydrocortisone Sodium Succinate (Solu-Cortef -) 50 mg IVPUSH Q8H JOCELYNE Last Admin: 05/17/17 05:51 Dose: 50 mg Norepinephrine Bitartrate 8, (000 mcg/ Dextrose) 500 mls @ 18.75 mls/hr IV TITR JOCELYNE; 5 MCG/MIN PRN Reason: Protocol Last Admin: 05/16/17 13:11 Dose: Not Given Linezolid 600 mg/ (Miscellaneous) 300 mls @ 300 mls/hr IVPB Q12H JOCELYNE PRN Reason: Protocol Last Admin: 05/17/17 10:39 Dose: 300 mls/hr Trimethoprim/Sulfamethoxazole (100 mg/ Dextrose) 256.25 mls @ 256.25 mls/hr IVPB Q8H-IV JOCELYNE Last Admin: 05/17/17 10:39 Dose: 256.25 mls/hr Levothyroxine Sodium (Synthroid Injection -) 44 mcg IVPUSH DAILY@0700 JOCELYNE Last Admin: 05/17/17 06:14 Dose: 44 mcg Mupirocin (Bactroban Ointment (For Decolonization) -) 1 applic NS BID [facility] Stop: 05/17/17 22:59 Last Admin: 05/16/17 21:08 Dose: 1 applic Nystatin (Mycostatin Cream -) 1 applic TP BID [facility] Last Admin: 05/17/17 00:20 Dose: 1 applic Pantoprazole Sodium (Protonix 40mg Ivpb (Pre-Docked)) 40 mg IVPB DAILY [facility] Last Admin: 05/16/17 10:01 Dose: 40 mg General: frail woman sedated and intubated HEENT: anicteric, no JVD CV: S1, S2, RRR Pulm: Bilateral scattered rhonchi Abd: Soft, ND, (+) BS Ext: +2 pulses Neuro: Sedated, minimal grimace to noxious stimuli Laboratory Results - last 24 hr 05/12/17 05/16/17 05/17/17 15:00 11:52 05:00 WBC RBC Hgb Hct MCV MCH MCHC RDW Plt Count MPV Total Counted Neutrophils % Neutrophils % (Manual) Lymphocytes % Lymphocytes % (Manual) Monocytes % (Manual) Hypersegmented Neuts Hypochromia Toxic Granulation Dohle Bodies Platelet Estimate Polychromasia Poikilocytosis Basophilic Stippling Anisocytosis Microcytosis Macrocytosis Spherocytes Siderocytes Sickle Cells Target Cells Tear Drop Cells Ovalocytes Stomatocytes Helmet Cells Sales-[place] Bodies [place] Rings [place] Cells Acanthocytes (Spur) Rouleaux Fragmented RBCs Schistocytes Morphology Comment Sodium Potassium Chloride Carbon Dioxide Anion Gap BUN Creatinine Creat Clearance w eGFR Random Glucose Calcium Total Bilirubin AST ALT Alkaline Phosphatase Total Protein Albumin Stool O & P Wet [place] Random Vancomycin 16.197 O & P Permanent Slide Final report Blood Type A NEGATIVE Antibody Screen Negative Crossmatch See Detail 05/17/17 05/17/17 05:00 05:00 WBC 8.3 RBC 2.67 L D Hgb 8.7 L D Hct 24.7 L D MCV 92.7 MCH 32.6 MCHC 35.2 RDW 22.0 H Plt Count 44 L MPV 8.7 Total Counted 100 Neutrophils % No Result Required. Neutrophils % (Manual) 89 H Lymphocytes % No Result Required. Lymphocytes % (Manual) 5 L D Monocytes % (Manual) 6 D Hypersegmented Neuts Cancelled Hypochromia Cancelled Toxic Granulation Cancelled Dohle Bodies Cancelled Platelet Estimate Markedly decreased Polychromasia Cancelled Poikilocytosis Cancelled Basophilic Stippling Cancelled Anisocytosis Cancelled Microcytosis Cancelled Macrocytosis Cancelled Spherocytes Cancelled Siderocytes Cancelled Sickle Cells Cancelled Target Cells Cancelled Tear Drop Cells Cancelled Ovalocytes Cancelled Stomatocytes Cancelled Helmet Cells Cancelled [place] Bodies Cancelled [place] Rings Cancelled Kandace Cells Cancelled Acanthocytes (Spur) Cancelled Rouleaux Cancelled Fragmented RBCs Cancelled Schistocytes Cancelled Morphology Comment Cancelled Sodium 139 Potassium 3.7 Chloride 108 H Carbon Dioxide 20 L Anion Gap 11 BUN 41 H Creatinine 1.2 H Creat Clearance w eGFR 43.23 Random Glucose 178 H Calcium 7.0 L Total Bilirubin 0.6 AST 83 H D ALT 40 Alkaline Phosphatase 257 H D Total Protein 4.1 L Albumin 1.4 L Stool O & P Wet [place] Vancomycin O & P Permanent Slide Blood Type Antibody Screen Crossmatch Problem List - Problems (1) Altered mental status, unspecified Code(s): R41.82 - ALTERED MENTAL STATUS, UNSPECIFIED (2) Aspiration pneumonia Code(s): J69.0 - PNEUMONITIS DUE TO INHALATION OF FOOD AND VOMIT (3) Dementia Code(s): F03.90 - UNSPECIFIED DEMENTIA WITHOUT BEHAVIORAL DISTURBANCE (4) Acute respiratory failure with hypoxia and hypercapnia Code(s): J96.01 - ACUTE RESPIRATORY FAILURE WITH HYPOXIA J96.02 - ACUTE RESPIRATORY FAILURE WITH HYPERCAPNIA (5) Pancytopenia Code(s): D61.818 - OTHER PANCYTOPENIA (6) CHF (congestive heart failure) Code(s): I50.9 - HEART FAILURE, UNSPECIFIED Qualifiers: Congestive heart failure type: unspecified congestive heart failure type Congestive heart failure chronicity: chronic Qualified Code(s): I50.9 - Heart failure, unspecified; I50.9 - Heart failure, unspecified; I50.9 - Heart failure, unspecified; I50.9 - Heart failure, unspecified (7) Hypothyroidism Code(s): E03.9 - HYPOTHYROIDISM, UNSPECIFIED (8) Paroxysmal SVT (supraventricular tachycardia) Code(s): I47.1 - SUPRAVENTRICULAR TACHYCARDIA (9) Shock Code(s): R57.9 - SHOCK, UNSPECIFIED Assessment/Plan Monitor off pressors Wean steroids to off Complete sedation vacation HOB >30, oral care If more awake, will try SBTs ABX coverage per ID: zosyn and vanco Strict I&O Repleat lytes Follow CXR Overall prognosis appears grave given frail state and failure to thrive, continue GOC discussions with family Dr Melgar Critical care time spent in reviewing chart, evaluating patient and formulating plan - 40 minutes.
--- NOTE | 2017-05-17 12:25 | PN ---
Progress Note, Physician History of Present Illness: This is a 82 yo woman PMH: dementia, hypothyroid, HTN, active tobacco, CAD s/p sent, CHF presenting to ICU after APPRENTICE EMBALMER for hypoxic respiratory failure, SVT (HR 180s) and shock. Briefly, patient initially presented for frequent falls and altered mental status with overall physical and cognitive decline over the last 6 months prior to admission. CT head: w/ central atrophy and mild microvascular ischemic gliosis. Labs significant for hypothyroid, leukopenia and pyuria, she was started on ceftriaxone. Neurology was consulted. Endocrine consulted. Mental status had some improvement while on the floor. Speech and swallow eval done c/ f aspiration. ABX were switch to zosyn given increased secretions and c/f pneumonia. Plans made for potential PEG placement. Patient continued to have waxing and waning mental status. Patient had notable right facial droop and NCHCT done w/o acute pathology. She completed a course of ABX. GI was consulted for c/f GIB. Heme also consulted given anemia and leukopenia and w/u sent: flow- -0.2% blasts, clonal B cells questionable nonspecific immunophenotype. On day of ICU admission patient had witnessed aspiration event. APPRENTICE EMBALMER was called in PM for hypoxia and tachycardia. Patient transferred to ICU for hypoxic respiratory failure. Patient intubated. ABG 7.3/54/242 (ACVC: 20/400/100 +5). Patient given adenosine for SVT w/ underlying sinus rhythm. Patient continued to have RVR and was given lopressor 5mg x1 w/ HR improved to 120s. Family called but were unavailable. - History Source - Current Medication List Current Medications: Active Medications Chlorhexidine Gluconate (Hibiclens For Decolonization -) 1 applic TP HS JOCELYNE Last Admin: 05/16/17 21:09 Dose: 1 applic Enoxaparin Sodium (Lovenox -) 30 mg SQ DAILY JOCELYNE Last Admin: 05/16/17 10:00 Dose: 30 mg Hydrocortisone Sodium Succinate (Solu-Cortef -) 50 mg IVPUSH Q8H JOCELYNE Last Admin: 05/17/17 05:51 Dose: 50 mg Norepinephrine Bitartrate 8, (000 mcg/ Dextrose) 500 mls @ 18.75 mls/hr IV TITR JOCELYNE; 5 MCG/MIN PRN Reason: Protocol Last Admin: 05/16/17 13:11 Dose: Not Given Linezolid 600 mg/ (Miscellaneous) 300 mls @ 300 mls/hr IVPB Q12H [facility] PRN Reason: Protocol Last Admin: 05/17/17 10:39 Dose: 300 mls/hr Trimethoprim/Sulfamethoxazole (100 mg/ Dextrose) 256.25 mls @ 256.25 mls/hr IVPB Q8H-IV [facility] Last Admin: 05/17/17 10:39 Dose: 256.25 mls/hr Levothyroxine Sodium (Synthroid Injection -) 44 mcg IVPUSH DAILY@0700 [facility] Last Admin: 05/17/17 06:14 Dose: 44 mcg Mupirocin (Bactroban Ointment (For Decolonization) -) 1 applic NS BID [facility] Stop: 05/17/17 22:59 Last Admin: 05/16/17 21:08 Dose: 1 applic Nystatin (Mycostatin Cream -) 1 applic TP BID [facility] Last Admin: 05/17/17 00:20 Dose: 1 applic Pantoprazole Sodium (Protonix 40mg Ivpb (Pre-Docked)) 40 mg IVPB DAILY [facility] Last Admin: 05/16/17 10:01 Dose: 40 mg - Objective Vital Signs: Vital Signs Temperature 98.1 F 05/17/17 06:00 Pulse Rate 100 H 05/17/17 10:00 Respiratory Rate 23 05/17/17 11:05 Blood Pressure 129/75 05/17/17 10:00 O2 Sat by Pulse Oximetry (%) 97 05/17/17 09:40 Eyes: Yes: WNL, Conjunctiva Clear, EOM Intact HENT: Yes: WNL, Atraumatic, Normocephalic Neck: Yes: WNL, Supple, Trachea Midline Cardiovascular: Yes: WNL, Regular Rate and Rhythm Respiratory: Yes: WNL, Regular, CTA Bilaterally Gastrointestinal: Yes: WNL, Normal Bowel Sounds Genitourinary: Yes: WNL Musculoskeletal: Yes: WNL Extremities: Yes: WNL Edema: No Integumentary: Yes: WNL Neurological: Yes: WNL, Alert, Oriented ...Motor Strength: WNL Psychiatric: Yes: WNL Labs: CBC, BMP 05/17/17 05:00 05/17/17 05:00 INR, PTT INR 1.11 (0.82-1.09) 05/12/17 01:35 Problem List - Problems (1) Acute respiratory failure with hypoxia and hypercapnia Code(s): J96.01 - ACUTE RESPIRATORY FAILURE WITH HYPOXIA J96.02 - ACUTE RESPIRATORY FAILURE WITH HYPERCAPNIA (2) Altered mental status, unspecified Code(s): R41.82 - ALTERED MENTAL STATUS, UNSPECIFIED (3) Anemia Code(s): D64.9 - ANEMIA, UNSPECIFIED Qualifiers: Anemia type: other cause Other causes of anemia: acute posthemorrhagic Qualified Code(s): D62 - Acute posthemorrhagic anemia; D62 - Acute posthemorrhagic anemia (4) Aspiration pneumonia Code(s): J69.0 - PNEUMONITIS DUE TO INHALATION OF FOOD AND VOMIT (5) Dementia Code(s): F03.90 - UNSPECIFIED DEMENTIA WITHOUT BEHAVIORAL DISTURBANCE (6) Fever Code(s): R50.9 - FEVER, UNSPECIFIED (7) Pancytopenia Code(s): D61.818 - OTHER PANCYTOPENIA (8) Shock Code(s): R57.9 - SHOCK, UNSPECIFIED (9) UTI (urinary tract infection) Code(s): N39.0 - URINARY TRACT INFECTION, SITE NOT SPECIFIED (10) Aortic stenosis Code(s): I35.0 - NONRHEUMATIC AORTIC (VALVE) STENOSIS (11) CHF (congestive heart failure) Code(s): I50.9 - HEART FAILURE, UNSPECIFIED Qualifiers: Congestive heart failure type: unspecified congestive heart failure type Congestive heart failure chronicity: chronic Qualified Code(s): I50.9 - Heart failure, unspecified; I50.9 - Heart failure, unspecified; I50.9 - Heart failure, unspecified; I50.9 - Heart failure, unspecified (12) HTN (hypertension) Code(s): I10 - ESSENTIAL (PRIMARY) HYPERTENSION (13) Hypothyroidism Code(s): E03.9 - HYPOTHYROIDISM, UNSPECIFIED (14) Macrocytosis Code(s): D75.89 - OTHER SPECIFIED DISEASES OF BLOOD AND BLOOD-FORMING ORGANS (15) Osteoporosis Code(s): M81.0 - AGE-RELATED OSTEOPOROSIS W/O CURRENT PATHOLOGICAL FRACTURE (16) Paroxysmal SVT (supraventricular tachycardia) Code(s): I47.1 - SUPRAVENTRICULAR TACHYCARDIA (17) Smoking Code(s): F17.200 - NICOTINE DEPENDENCE, UNSPECIFIED, UNCOMPLICATED (18) Smoking addiction Code(s): F17.200 - NICOTINE DEPENDENCE, UNSPECIFIED, UNCOMPLICATED Assessment/Plan Problems (1) Acute respiratory failure with hypoxia and hypercapnia Assessment/Plan: remains intubated. Code(s): J96.01 - ACUTE RESPIRATORY FAILURE WITH HYPOXIA J96.02 - ACUTE RESPIRATORY FAILURE WITH HYPERCAPNIA (2) Altered mental status, unspecified Code(s): R41.82 - ALTERED MENTAL STATUS, UNSPECIFIED (3) Anemia Code(s): D64.9 - ANEMIA, UNSPECIFIED Qualifiers: Anemia type: other cause Other causes of anemia: acute posthemorrhagic Qualified Code(s): D62 - Acute posthemorrhagic anemia; D62 - Acute posthemorrhagic anemia (4) Aspiration pneumonia Code(s): J69.0 - PNEUMONITIS DUE TO INHALATION OF FOOD AND VOMIT (5) Dementia Code(s): F03.90 - UNSPECIFIED DEMENTIA WITHOUT BEHAVIORAL DISTURBANCE (6) Fever Code(s): R50.9 - FEVER, UNSPECIFIED (7) Pancytopenia Assessment/Plan: WBCs no longer leukopenic. Profoundly anemic; plateltes remain low. f/u with assembler rubber footwear. Code(s): D61.818 - OTHER PANCYTOPENIA (8) Shock Assessment/Plan: Off pressors. Continue fluids; antibiotics. Code(s): R57.9 - SHOCK, UNSPECIFIED (9) HTN (hypertension) Code(s): I10 - ESSENTIAL (PRIMARY) HYPERTENSION (10) Hypothyroidism Code(s): E03.9 - HYPOTHYROIDISM, UNSPECIFIED (11) Osteoporosis Code(s): M81.0 - AGE-RELATED OSTEOPOROSIS W/O CURRENT PATHOLOGICAL FRACTURE (12) Smoking Code(s): F17.200 - NICOTINE DEPENDENCE, UNSPECIFIED, UNCOMPLICATED (13) Acute on chronic systolic (congestive) heart failure Assessment/Plan: ECHO: mildly reduced LVEF; mild MR; moderate TR; mild AR; trivial pericardial effusion. Now off pressors. F/u BUN/Cr, electrolytes, Is and Os, weight. Avoid excessive dehydration. F/u BNP. Code(s): I50.23 - ACUTE ON CHRONIC SYSTOLIC (CONGESTIVE) HEART FAILURE (14) Sinus tachycardia Assessment/Plan: improved HR. likely multifactorial: periodic fever; anemia; septic shock;hypoxia; intubation ; ?pain. Code(s): R00.0 - TACHYCARDIA, UNSPECIFIED (15) Hypomagnesemia Assessment/Plan: repleted; 1.9 today. Code(s): E83.42 - HYPOMAGNESEMIA (16) Hypokalemia Assessment/Plan: now WNL. Code(s): E87.6 - HYPOKALEMIA (17) Hypophosphatemia Assessment/Plan: 1.1; replete, and f/u level. Code(s): E83.39 - OTHER DISORDERS OF PHOSPHORUS METABOLISM cc time spent 35 min
[2017-05-17] MEDS: ENOXAPARIN NA (PORCINE) 30 MG/0.3 ML DISP.SYRIN SQ SCH (12:29)
[2017-05-17] MEDS: MUPIROCIN 2% TOPICAL OINTMENT FOR DECOLONIZATION NS SCH ×2 (12:29→21:14)
[2017-05-17] MEDS: PANTOPRAZOLE SODIUM 40 MG/100 ML PRE-DOCKED IVPB SCH (12:31)
--- NOTE | 2017-05-17 13:44 | PN ---
Physical Exam: SUBJECTIVE: Patient seen and examined at bedside. Yesterday, levophed was d/c. Today, pt is sedated on propofol and is still intubated. Vent settings are assist control: 24 rate/400 tidal volume/35% Fi02/ 5 PEEP. Pt is afebrile, no overnight events. OBJECTIVE: Vital Signs Period Temp Pulse Resp BP Sys/Damon Pulse Ox Last 24 Hr 97.9 F-98.6 F 86-105 18-33 96-131/46-78 95-98 GENERAL: Pt is thin and frail, lying in bed- sedated and vented. on assist control HEAD: Normal with no signs of trauma. EYES: PERRL, sclera anicteric NECK: Trachea midline, supple. LUNGS: decreased breath sounds appreciated at bases HEART: Regular rate and rhythm, S1, S2 without murmur, rub or gallop. ABDOMEN: Soft, nontender, nondistended, normoactive bowel sounds EXTREMITIES: 2+ posterior tibial pulses, warm, well-perfused, no edema. NEUROLOGICAL: difficult to assess as pt is sedated, however PERRL Laboratory Results - last 24 hr 05/12/17 05/16/17 05/17/17 15:00 11:52 05:00 WBC RBC Hgb Hct MCV MCH MCHC RDW Plt Count MPV Total Counted Neutrophils % Neutrophils % (Manual) Lymphocytes % Lymphocytes % (Manual) Monocytes % (Manual) Hypersegmented Neuts Hypochromia Toxic Granulation Dohle Bodies Platelet Estimate Polychromasia Poikilocytosis Basophilic Stippling Anisocytosis Microcytosis Macrocytosis Spherocytes Siderocytes Sickle Cells Target Cells Tear Drop Cells Ovalocytes Stomatocytes Helmet Cells [place] Bodies [place] Rings Kandace Cells Acanthocytes (Spur) Rouleaux Fragmented RBCs Schistocytes Morphology Comment Sodium Potassium Chloride Carbon Dioxide Anion Gap BUN Creatinine Creat Clearance w eGFR Random Glucose Calcium Total Bilirubin AST ALT Alkaline Phosphatase Total Protein Albumin Stool O & P Wet [place] Vancomycin 16.197 O & P Permanent Slide Final report Blood Type A NEGATIVE Antibody Screen Negative Crossmatch See Detail 05/17/17 05/17/17 05:00 05:00 WBC 8.3 RBC 2.67 L D Hgb 8.7 L D Hct 24.7 L D MCV 92.7 MCH 32.6 MCHC 35.2 RDW 22.0 H Plt Count 44 L MPV 8.7 Total Counted 100 Neutrophils % No Result Required. Neutrophils % (Manual) 89 H Lymphocytes % No Result Required. Lymphocytes % (Manual) 5 L D Monocytes % (Manual) 6 D Hypersegmented Neuts Cancelled Hypochromia Cancelled Toxic Granulation Cancelled Dohle Bodies Cancelled Platelet Estimate Markedly decreased Polychromasia Cancelled Poikilocytosis Cancelled Basophilic Stippling Cancelled Anisocytosis Cancelled Microcytosis Cancelled Macrocytosis Cancelled Spherocytes Cancelled Siderocytes Cancelled Sickle Cells Cancelled Target Cells Cancelled Tear Drop Cells Cancelled Ovalocytes Cancelled Stomatocytes Cancelled Helmet Cells Cancelled [place] Bodies Cancelled [place] Rings Cancelled Kandace Cells Cancelled Acanthocytes (Spur) Cancelled Rouleaux Cancelled Fragmented RBCs Cancelled Schistocytes Cancelled Morphology Comment Cancelled Sodium 139 Potassium 3.7 Chloride 108 H Carbon Dioxide 20 L Anion Gap 11 BUN 41 H Creatinine 1.2 H Creat Clearance w eGFR 43.23 Random Glucose 178 H Calcium 7.0 L Total Bilirubin 0.6 AST 83 H D ALT 40 Alkaline Phosphatase 257 H D Total Protein 4.1 L Albumin 1.4 L Stool O & P Wet [place] Vancomycin O & P Permanent Slide Blood Type Antibody Screen Crossmatch Active Medications Generic Name Dose Route Start Last Admin Trade Name Jacquelyn PRN Reason Stop Dose Admin Chlorhexidine Gluconate 1 applic 05/13/17 22:00 05/16/17 21:09 Hibiclens For Decolonization - TP 1 applic HS JOCELYNE Administration Enoxaparin Sodium 30 mg 05/12/17 13:00 05/17/17 12:29 Lovenox - SQ 30 mg DAILY JOCELYNE Administration Hydrocortisone Sodium Succinate 50 mg 05/15/17 14:00 05/17/17 05:51 Solu-Cortef - IVPUSH 50 mg Q8H JOCELYNE Administration Norepinephrine Bitartrate 8, 500 mls @ 18.75 mls/hr 05/12/17 12:45 05/16/17 13: 11 000 mcg/ Dextrose IV Not Given TITR JOCELYNE Protocol 5 MCG/MIN Linezolid 600 mg/ 300 mls @ 300 mls/hr 05/15/17 20:00 05/17/17 10:39 Miscellaneous IVPB 300 mls/hr Q12H JOCELYNE Administration Protocol Trimethoprim/Sulfamethoxazole 256.25 mls @ 256.25 mls/hr 05/15/17 16:00 10:39 100 mg/ Dextrose IVPB 256.25 mls/hr Q8H-IV JOCELYNE Administration Levothyroxine Sodium 44 mcg 05/12/17 07:00 05/17/17 06:14 Synthroid Injection - IVPUSH 44 mcg DAILY@0700 JOCELYNE Administration Mupirocin 1 applic 05/12/17 23:00 05/17/17 12:29 Bactroban Ointment (For Decolonization) - NS 05/17/17 22:59 1 applic BID JOCELYNE Administration Nystatin 1 applic 05/12/17 10:00 05/17/17 12:30 Mycostatin Cream - TP 1 applic BID JOCELYNE Administration Pantoprazole Sodium 40 mg 05/12/17 10:00 05/17/17 12:31 Protonix 40mg Ivpb (Pre-Docked) IVPB 40 mg DAILY JOCELYNE Administration ASSESSMENT/PLAN: This is an 82 y/o F with hx of CAD s/p stent, suspected COPD, dementia, hypothyroidism, who presented with altered mentation and failure to thrive and recent diagnosis of dysphagia and UTI. She was transferred to the ICU s/p rapid response secondary to acute hypoxic respiratory failure and aspiration, septic shock, SVT. #PULMONARY Acute hypoxic respiratory failure secondary to aspiration pneumonia -Intubated, continue vent settings, assist control: 24 rate/400 tidal volume/35 % Fi02/ 5 PEEP. -propofol sedation has been d/c - sedation vacation -Weaning trials when status is more stable #NEURO -sedation has been d/c -Will check for any changes in mental status off sedation -as per nurse, at baseline mentation #ID sepsis secondary to HCAP vs. UTI -afebrile, without leukocytosis -Continue solucortef 50mg IVP q8h, will wean -Trend lactic acid -Continue abx, on Bactrim and linezolid (Day 3) #GI -on contact precautions for MRSA, VRE #Renal TAMIE secondary to septic shock -strict I's and O's -BUN/Cr elevated- 41/1.7 -will follow UO #Heme/onc Pancytopenia -Heme on board -most likely 2/2 oncologic process -Will follow CBC #Palliative -Spoke to son on phone, stated that he wants mother full code, continued on vent. Said he is unable to come in for a family discussion since he lives far away in [place] -left message for Danna palliative nurse to discuss family situation #Lines -Has L IJ central line -Beck #F/E/N -Will follow electrolytes -Osmolite feeds 40 mls/hr Disposition -continue management in ICU as pt is still dependent on vent Visit type - Emergency Visit Emergency Visit: No - New Patient This patient is new to me today: Yes Date on this admission: 05/17/17 - Critical Care Critical Care patient: Yes Total Critical Care Time (in minutes): 32 Critical Care Statement: The care of this patient involved high complexity decision making to prevent further life threatening deterioration of the patient 's condition and/or to evaluate & treat vital organ system(s) failure or risk of failure.
--- NOTE | 2017-05-17 15:11 | PN ---
Progress Note, Physician History of Present Illness: continues to be intubated patient was given trial of cpap - Current Medication List Current Medications: Active Medications Chlorhexidine Gluconate (Hibiclens For Decolonization -) 1 applic TP HS [facility] Last Admin: 05/16/17 21:09 Dose: 1 applic Enoxaparin Sodium (Lovenox -) 30 mg SQ DAILY [facility] Last Admin: 05/17/17 12:29 Dose: 30 mg Hydrocortisone Sodium Succinate (Solu-Cortef -) 50 mg IVPUSH Q8H [facility] Last Admin: 05/17/17 13:41 Dose: 50 mg Norepinephrine Bitartrate 8, (000 mcg/ Dextrose) 500 mls @ 18.75 mls/hr IV TITR [facility]; 5 MCG/MIN PRN Reason: Protocol Last Admin: 05/16/17 13:11 Dose: Not Given Linezolid 600 mg/ (Miscellaneous) 300 mls @ 300 mls/hr IVPB Q12H [facility] PRN Reason: Protocol Last Admin: 05/17/17 10:39 Dose: 300 mls/hr Trimethoprim/Sulfamethoxazole (100 mg/ Dextrose) 256.25 mls @ 256.25 mls/hr IVPB Q8H-IV [facility] Last Admin: 05/17/17 10:39 Dose: 256.25 mls/hr Levothyroxine Sodium (Synthroid Injection -) 44 mcg IVPUSH DAILY@0700 [facility] Last Admin: 05/17/17 06:14 Dose: 44 mcg Mupirocin (Bactroban Ointment (For Decolonization) -) 1 applic NS BID [facility] Stop: 05/17/17 22:59 Last Admin: 05/17/17 12:29 Dose: 1 applic Nystatin (Mycostatin Cream -) 1 applic TP BID [facility] Last Admin: 05/17/17 12:30 Dose: 1 applic Pantoprazole Sodium (Protonix 40mg Ivpb (Pre-Docked)) 40 mg IVPB DAILY [facility] Last Admin: 05/17/17 12:31 Dose: 40 mg - Objective Vital Signs: Vital Signs Temperature 98.1 F 05/17/17 06:00 Pulse Rate 105 H 05/17/17 12:00 Respiratory Rate 26 H 05/17/17 14:47 Blood Pressure 131/78 05/17/17 12:00 O2 Sat by Pulse Oximetry (%) 97 05/17/17 09:40 Constitutional: Yes: Other Cardiovascular: Yes: Regular Rate and Rhythm Respiratory: Yes: Intubated, Mechanically Ventilated Gastrointestinal: Yes: Normal Bowel Sounds, Soft Musculoskeletal: Yes: WNL Extremities: Yes: WNL Wound/Incision: Yes: Other Neurological: Yes: Other Labs: CBC, BMP 05/17/17 05:00 05/17/17 05:00 INR, PTT INR 1.11 (0.82-1.09) 05/12/17 01:35 Assessment/Plan Problem List - Problems (1) UTI (urinary tract infection) Code(s): N39.0 - URINARY TRACT INFECTION, SITE NOT SPECIFIED (2) Dementia Code(s): F03.90 - UNSPECIFIED DEMENTIA WITHOUT BEHAVIORAL DISTURBANCE (3) Pancytopenia Code(s): D61.818 - OTHER PANCYTOPENIA (4) CHF (congestive heart failure) Code(s): I50.9 - HEART FAILURE, UNSPECIFIED Qualifiers: Congestive heart failure type: unspecified congestive heart failure type Congestive heart failure chronicity: chronic Qualified Code(s): I50.9 - Heart failure, unspecified (5) HTN (hypertension) Code(s): I10 - ESSENTIAL (PRIMARY) HYPERTENSION (6) Hypothyroidism Code(s): E03.9 - HYPOTHYROIDISM, UNSPECIFIED Aspiration pneumonia Code(s): J69.0 - PNEUMONITIS DUE TO INHALATION OF FOOD AND VOMIT lactic acidosis vanco level noted,will hold vanco today check vanco level tomorrow if less than 15 give one gram plan continue nutrition continue current abx close watch nutrition support rest as per icu will hold vanco will check vanco level cc time 40 min
[2017-05-17] MEDS: NOREPINEPHRINE BITARTRATE 8,000 MCG in DEXTROSE 5%-WATER - 492 ML IV SCH (16:20)
[2017-05-17] MEDS ORDERED: PROPOFOL 100 ML ONE ×2 (17:00→19:22)
[2017-05-17] MEDS: CHLORHEXIDINE GLUCONATE 4% CLEANSER FOR DECOLONIZATION TP SCH (21:14)
[2017-05-17] MEDS ORDERED: LIDOCAINE HCL 1%, 10 MG/ML (20ML VIAL) ONE (23:03)
[2017-05-18] MEDS ORDERED: PT OWN MED DRAWER 7, Y5N ONE ×4 (00:25→22:54)
[2017-05-18] MEDS: WATER IVPB SCH ×3 (01:02→18:15)
[2017-05-18] MEDS: TRIMETHOPRIM IVPB SCH ×3 (01:02→18:15)
[2017-05-18] MEDS: SULFAMETHOXAZOLE IVPB SCH ×3 (01:02→18:15)
[2017-05-18] MEDS: DEXTROSE 5% IVPB SCH ×3 (01:02→18:15)
[2017-05-18] MEDS: PROPOFOL 100 ML IVPB SCH (04:44)
[2017-05-18] MEDS: HYDROCORTISONE SOD SUCCINATE 100 MG/2 ML VIAL IVPUSH SCH ×3 (05:33→23:02)
[2017-05-18 05:50] LABS: MCH 32.7 pg (25.7-33.7); MCHC 35.3 g/dl (32.0-36.0); MEAN CELL VOLUME 92.7 fl (80-96); RDW 22.1 % (11.6-15.6); WHITE BLOOD COUNT 8.5 K/mm3 (4.0-10.0)
[2017-05-18 06:06] LABS: ANION GAP 13 (8-16); CO2 19 mmol/L (21-32); CREATININE 1.1 mg/dL (0.55-1.02); GLUCOSE,RANDOM 209 mg/dL (74-106); MAGNESIUM 1.7 mg/dL (1.8-2.4); PHOSPHOROUS 1.8 mg/dL (2.5-4.9)
[2017-05-18] MEDS: LEVOTHYROXINE SODIUM 100 MCG VIAL IVPUSH SCH (06:17)
[2017-05-18 06:56] LABS: MEAN PLT VOLUME 9.3 fl (7.5-11.1); PLATELET COUNT 65 K/MM3 (134-434); TOTAL CELLS COUNTED 100
--- NOTE | 2017-05-18 08:42 | PN ---
Physical Exam: SUBJECTIVE: Patient seen and examined at bedside. 24 hr events -Was off propofol sedation yesterday afternoon, became tachycardic at 126HR , RR 29, grimacing (7:30pm)- was put back on Today -Currently has been off propofol since 6AM- eyes open, mild blink response to close visual stimuli -Did a CPAP trial this AM, became tachycardic to HR 115 -Back on assist control vent settings 24 rate/400 tidal volume/35% Fi02/ 5 PEEP OBJECTIVE: Vital Signs Period Temp Pulse Resp BP Sys/Damon Pulse Ox Last 24 Hr 97.5 F-98.6 F 92-105 18-34 107-141/59-81 97-98 GENERAL: The patient's eyes are open, on assist control on vent HEAD: Normal with no signs of trauma. EYES: PERRL, sclera anicteric, conjunctiva clear. NECK: Trachea midline LUNGS: decreased breath sounds appreciated at lung bases HEART: Regular rate and rhythm, S1, S2 without murmur, rub or gallop. ABDOMEN: Soft, nontender, nondistended, normoactive bowel sounds, no guarding, no rebound EXTREMITIES: 2+ posterior tibial pulses, warm, well-perfused, no edema. NEUROLOGICAL: difficult to assess d/t pt's baseline mentation, started on sedation- however eyes open this AM, responds to close visual stimuli with minimal blink response Laboratory Results - last 24 hr 05/18/17 05/18/17 05:00 05:00 WBC 8.5 RBC 3.33 L D Hgb 10.9 D Hct 30.9 L D MCV 92.7 MCH 32.7 MCHC 35.3 RDW 22.1 H Plt Count 65 L D MPV 9.3 Total Counted 100 Neutrophils % No Result Required. Neutrophils % (Manual) 85 H Band Neuts % (Manual) 3 D Lymphocytes % No Result Required. Lymphocytes % (Manual) 7 L D Monocytes % (Manual) 5 Sodium 139 Potassium 3.7 Chloride 107 Carbon Dioxide 19 L Anion Gap 13 BUN 42 H Creatinine 1.1 H Random Glucose 209 H Calcium 7.0 L Phosphorus 1.8 L D Magnesium 1.7 L Active Medications Generic Name Dose Route Start Last Admin Trade Name Freq PRN Reason Stop Dose Admin Chlorhexidine Gluconate 1 applic 05/13/17 22:00 05/17/17 21:14 Hibiclens For Decolonization - TP 1 applic HS [facility] Administration Enoxaparin Sodium 30 mg 05/12/17 13:00 05/17/17 12:29 Lovenox - SQ 30 mg DAILY [facility] Administration Hydrocortisone Sodium Succinate 50 mg 05/15/17 14:00 05/18/17 05:33 Solu-Cortef - IVPUSH 50 mg Q8H [facility] Administration Norepinephrine Bitartrate 8, 500 mls @ 18.75 mls/hr 05/12/17 12:45 05/17/17 16: 20 000 mcg/ Dextrose IV Not Given TITR [facility] Protocol 5 MCG/MIN Linezolid 600 mg/ 300 mls @ 300 mls/hr 05/15/17 20:00 05/17/17 19:44 Miscellaneous IVPB 300 mls/hr Q12H [facility] Administration Protocol Trimethoprim/Sulfamethoxazole 256.25 mls @ 256.25 mls/hr 05/15/17 16:00 01:02 100 mg/ Dextrose IVPB 256.25 mls/hr Q8H-IV [facility] Administration Propofol 100 mls @ 1.617 mls/hr 05/17/17 19:30 05/18/17 04:44 Diprivan - IVPB 9.7 mls/hr TITR [facility] Administration Protocol 5 MCG/KG/MIN Levothyroxine Sodium 44 mcg 05/12/17 07:00 05/18/17 06:17 Synthroid Injection - IVPUSH 44 mcg DAILY@0700 [facility] Administration Nystatin 1 applic 05/12/17 10:00 05/17/17 21:13 Mycostatin Cream - TP 1 applic BID [facility] Administration Pantoprazole Sodium 40 mg 05/12/17 10:00 05/17/17 12:31 Protonix 40mg Ivpb (Pre-Docked) IVPB 40 mg DAILY [facility] Administration ASSESSMENT/PLAN: This is an 82 y/o F with hx of CAD s/p stent, suspected COPD, dementia, hypothyroidism, who presented with altered mentation and failure to thrive and recent diagnosis of dysphagia and UTI. She was transferred to the ICU s/p rapid response secondary to acute hypoxic respiratory failure and aspiration, septic shock, SVT. #PULMONARY Acute hypoxic respiratory failure secondary to aspiration pneumonia -Intubated, continue vent settings, assist control: 24 rate/400 tidal volume/35 % Fi02/ 5 PEEP -propofol sedation vacations, did a trial of CPAP this AM -last dose received 6am this morning -Continue weaning trials -F/u CXR #NEURO -sedation has been d/c -as per son, mother is at baseline mentation- has had worsening dementia over past yr. Before her deterioration, states that he took care of his mother's ADL' s at her home. Mentioned that she is hard of hearing, but does not use hearing aids. #ID sepsis secondary to HCAP vs. UTI -afebrile, without leukocytosis -Continue solucortef 50mg IVP q8h, will wean -Trend lactic acid -Continue abx, on Bactrim for streno. maltophia and linezolid for VRE,MRSA (Day 4) -as per ID, vanco level <15, 1g vanco given #GI -on contact precautions for MRSA, VRE, streno. maltophia -PEG: as per GI, she is a poor candidate for general anesthesia -IR has been consulted about placement, uses abdominal anesthesia, possibly less risky #Renal TAMIE secondary to septic shock -strict I's and O's -BUN/Cr elevated- 41/1.7 -will follow UO #Heme/onc Pancytopenia -Heme on board -most likely 2/2 oncologic process -Will follow CBC #Palliative -Spoke to son on phone, stated that he wants mother full code, continued on vent. Said he is unable to come in for a family discussion since he lives far away in [place] -spoke to Danna, talked about potential for family meeting today #Lines -L IJ central line - Today is Day 7 -Ebony #F/E/N -Will follow electrolytes -Osmolite feeds 40 mls/hr Disposition -continue management in ICU as pt is still dependent on vent, continue weaning trials. Visit type - Emergency Visit Emergency Visit: No - New Patient This patient is new to me today: No - Critical Care Critical Care patient: Yes Total Critical Care Time (in minutes): 40 Critical Care Statement: The care of this patient involved high complexity decision making to prevent further life threatening deterioration of the patient 's condition and/or to evaluate & treat vital organ system(s) failure or risk of failure.
[2017-05-18] MEDS: LINEZOLID 600 MG PREMIX BAG 600 MG in PREMIX 300 IVPB SCH ×2 (09:09→23:01)
[2017-05-18] MEDS: ENOXAPARIN NA (PORCINE) 30 MG/0.3 ML DISP.SYRIN SQ SCH (09:10)
[2017-05-18] MEDS: NYSTATIN 100,000 UNIT/GM TOPICAL CREAM 15 GM TUBE TP SCH ×2 (09:11→23:03)
[2017-05-18] MEDS: PANTOPRAZOLE SODIUM 40 MG/100 ML PRE-DOCKED IVPB SCH (09:11)
[2017-05-18] MEDS ORDERED: MAGNESIUM SULF 50% (8.12 MEQ/2 ML-1 GM VIAL) IVPB ONE (09:15)
--- NOTE | 2017-05-18 11:33 | PN ---
Teaching Attending Note Name of Resident: Reshma Recio ATTENDING PHYSICIAN STATEMENT I saw and evaluated the patient. I reviewed the resident's note and discussed the case with the resident. I agree with the resident's findings and plan as documented. SUBJECTIVE: Patient seen and examined in the ICU. Remains intubated. Off sedation since 6 AM. Eyes are open. Blinks to threat. Does not follow commands. No pressors. AC Mode of vent. Laboratory Results - last 24 hr 05/18/17 05/18/17 05/18/17 05:00 05:00 09:20 WBC 8.5 RBC 3.33 L D Hgb 10.9 D Hct 30.9 L D MCV 92.7 MCH 32.7 MCHC 35.3 RDW 22.1 H Plt Count 65 L D MPV 9.3 Total Counted 100 Neutrophils % No Result Required. Neutrophils % (Manual) 85 H Band Neuts % (Manual) 3 D Lymphocytes % No Result Required. Lymphocytes % (Manual) 7 L D Monocytes % (Manual) 5 Sodium 139 Potassium 3.7 Chloride 107 Carbon Dioxide 19 L Anion Gap 13 BUN 42 H Creatinine 1.1 H Random Glucose 209 H Calcium 7.0 L Phosphorus 1.8 L D Magnesium 1.7 L Random Vancomycin 10.516 Last Vital Signs Temp Pulse Resp BP Pulse Ox 98.4 F 101 H 24 151/91 97 05/18/17 10:49 05/18/17 10:49 05/18/17 10:49 05/18/17 10:49 05/18/17 09:20 Active Medications Chlorhexidine Gluconate (Hibiclens For Decolonization -) 1 applic TP HS [facility] Last Admin: 05/17/17 21:14 Dose: 1 applic Enoxaparin Sodium (Lovenox -) 30 mg SQ DAILY [facility] Last Admin: 05/18/17 09:10 Dose: 30 mg Hydrocortisone Sodium Succinate (Solu-Cortef -) 50 mg IVPUSH Q8H [facility] Last Admin: 05/18/17 05:33 Dose: 50 mg Norepinephrine Bitartrate 8, (000 mcg/ Dextrose) 500 mls @ 18.75 mls/hr IV TITR [facility]; 5 MCG/MIN PRN Reason: Protocol Last Admin: 05/17/17 16:20 Dose: Not Given Linezolid 600 mg/ (Miscellaneous) 300 mls @ 300 mls/hr IVPB Q12H [facility] PRN Reason: Protocol Last Admin: 05/18/17 09:09 Dose: 300 mls/hr Trimethoprim/Sulfamethoxazole (100 mg/ Dextrose) 256.25 mls @ 256.25 mls/hr IVPB Q8H-IV [facility] Last Admin: 05/18/17 10:31 Dose: 256.25 mls/hr Levothyroxine Sodium (Synthroid Injection -) 44 mcg IVPUSH DAILY@0700 [facility] Last Admin: 05/18/17 06:17 Dose: 44 mcg Nystatin (Mycostatin Cream -) 1 applic TP BID [facility] Last Admin: 05/18/17 09:11 Dose: 1 applic Pantoprazole Sodium (Protonix 40mg Ivpb (Pre-Docked)) 40 mg IVPB DAILY [facility] Last Admin: 05/18/17 09:11 Dose: 40 mg General: frail woman, intubated HEENT: anicteric, no JVD CV: S1, S2, RRR Pulm: Bilateral scattered rhonchi Abd: Soft, ND, (+) BS Ext: +2 pulses Neuro: Blinks to threat, non-focal Laboratory Results - last 24 hr 05/18/17 05/18/17 05/18/17 05:00 05:00 09:20 WBC 8.5 RBC 3.33 L D Hgb 10.9 D Hct 30.9 L D MCV 92.7 MCH 32.7 MCHC 35.3 RDW 22.1 H Plt Count 65 L D MPV 9.3 Total Counted 100 Neutrophils % No Result Required. Neutrophils % (Manual) 85 H Band Neuts % (Manual) 3 D Lymphocytes % No Result Required. Lymphocytes % (Manual) 7 L D Monocytes % (Manual) 5 Sodium 139 Potassium 3.7 Chloride 107 Carbon Dioxide 19 L Anion Gap 13 BUN 42 H Creatinine 1.1 H Random Glucose 209 H Calcium 7.0 L Phosphorus 1.8 L D Magnesium 1.7 L Random Vancomycin 10.516 Problem List - Problems (1) Altered mental status, unspecified Code(s): R41.82 - ALTERED MENTAL STATUS, UNSPECIFIED (2) Aspiration pneumonia Code(s): J69.0 - PNEUMONITIS DUE TO INHALATION OF FOOD AND VOMIT (3) Dementia Code(s): F03.90 - UNSPECIFIED DEMENTIA WITHOUT BEHAVIORAL DISTURBANCE (4) Acute respiratory failure with hypoxia and hypercapnia Code(s): J96.01 - ACUTE RESPIRATORY FAILURE WITH HYPOXIA J96.02 - ACUTE RESPIRATORY FAILURE WITH HYPERCAPNIA (5) Pancytopenia Code(s): D61.818 - OTHER PANCYTOPENIA (6) CHF (congestive heart failure) Code(s): I50.9 - HEART FAILURE, UNSPECIFIED Qualifiers: Congestive heart failure type: unspecified congestive heart failure type Congestive heart failure chronicity: chronic Qualified Code(s): I50.9 - Heart failure, unspecified; I50.9 - Heart failure, unspecified; I50.9 - Heart failure, unspecified; I50.9 - Heart failure, unspecified (7) Hypothyroidism Code(s): E03.9 - HYPOTHYROIDISM, UNSPECIFIED (8) Paroxysmal SVT (supraventricular tachycardia) Code(s): I47.1 - SUPRAVENTRICULAR TACHYCARDIA (9) Shock Code(s): R57.9 - SHOCK, UNSPECIFIED Assessment/Plan Monitor off pressors Wean steroids to off Complete sedation vacation HOB >30, oral care SBTs as tolerated ABX coverage per ID: zosyn and vanco Strict I&O Repleat lytes Follow CXR in AM IR for GT insertion Overall prognosis appears grave given frail state and failure to thrive, continue C discussions with family Dr Melgar Critical care time spent in reviewing chart, evaluating patient and formulating plan - 40 minutes.
[2017-05-18] MEDS ORDERED: VANCOMYCIN 1 GRAM (PRE-DOCKED) 1,000 MG/250 ML BAG IVPB ONE (11:37)
[2017-05-18] MEDS ORDERED: VANCOMYCIN 1,000 MG in DEXTROSE 5%-WATER - 250 ML IVPB ONE (13:00)
[2017-05-18] MEDS: NOREPINEPHRINE BITARTRATE 8,000 MCG in DEXTROSE 5%-WATER - 492 ML IV SCH (13:37)
--- NOTE | 2017-05-18 18:10 | PN ---
Progress Note, Physician History of Present Illness: continues to be intubated no gross changes - Current Medication List Current Medications: Active Medications Chlorhexidine Gluconate (Hibiclens For Decolonization -) 1 applic TP HS [facility] Last Admin: 05/17/17 21:14 Dose: 1 applic Enoxaparin Sodium (Lovenox -) 30 mg SQ DAILY [facility] Last Admin: 05/18/17 09:10 Dose: 30 mg Hydrocortisone Sodium Succinate (Solu-Cortef -) 50 mg IVPUSH Q8H [facility] Last Admin: 05/18/17 16:15 Dose: 100 mg Norepinephrine Bitartrate 8, (000 mcg/ Dextrose) 500 mls @ 18.75 mls/hr IV TITR [facility]; 5 MCG/MIN PRN Reason: Protocol Last Admin: 05/18/17 13:37 Dose: Not Given Linezolid 600 mg/ (Miscellaneous) 300 mls @ 300 mls/hr IVPB Q12H [facility] PRN Reason: Protocol Last Admin: 05/18/17 09:09 Dose: 300 mls/hr Trimethoprim/Sulfamethoxazole (100 mg/ Dextrose) 256.25 mls @ 256.25 mls/hr IVPB Q8H-IV [facility] Last Admin: 05/18/17 10:31 Dose: 256.25 mls/hr Levothyroxine Sodium (Synthroid Injection -) 44 mcg IVPUSH DAILY@0700 [facility] Last Admin: 05/18/17 06:17 Dose: 44 mcg Nystatin (Mycostatin Cream -) 1 applic TP BID [facility] Last Admin: 05/18/17 09:11 Dose: 1 applic Pantoprazole Sodium (Protonix 40mg Ivpb (Pre-Docked)) 40 mg IVPB DAILY [facility] Last Admin: 05/18/17 09:11 Dose: 40 mg - Objective Vital Signs: Vital Signs Temperature 98.6 F 05/18/17 13:34 Pulse Rate 154 H 05/18/17 14:45 Respiratory Rate 26 H 05/18/17 16:20 Blood Pressure 154/84 05/18/17 14:45 O2 Sat by Pulse Oximetry (%) 97 05/18/17 09:20 Constitutional: Yes: Calm, Other Cardiovascular: Yes: Regular Rate and Rhythm Respiratory: Yes: Regular, CTA Bilaterally Gastrointestinal: Yes: Normal Bowel Sounds, Soft Musculoskeletal: Yes: WNL Extremities: Yes: WNL Neurological: Yes: Other Labs: CBC, BMP 05/18/17 05:00 05/18/17 05:00 INR, PTT INR 1.11 (0.82-1.09) 05/12/17 01:35 Assessment/Plan Problem List - Problems (1) UTI (urinary tract infection) Code(s): N39.0 - URINARY TRACT INFECTION, SITE NOT SPECIFIED (2) Dementia Code(s): F03.90 - UNSPECIFIED DEMENTIA WITHOUT BEHAVIORAL DISTURBANCE (3) Pancytopenia Code(s): D61.818 - OTHER PANCYTOPENIA (4) CHF (congestive heart failure) Code(s): I50.9 - HEART FAILURE, UNSPECIFIED Qualifiers: Congestive heart failure type: unspecified congestive heart failure type Congestive heart failure chronicity: chronic Qualified Code(s): I50.9 - Heart failure, unspecified (5) HTN (hypertension) Code(s): I10 - ESSENTIAL (PRIMARY) HYPERTENSION (6) Hypothyroidism Code(s): E03.9 - HYPOTHYROIDISM, UNSPECIFIED Aspiration pneumonia Code(s): J69.0 - PNEUMONITIS DUE TO INHALATION OF FOOD AND VOMIT lactic acidosis plan continue nutrition continue abx for [possible peg tube tomorrow platelets transfusion close watch nutrition support rest as per icu cx results noted cc time 40 min
--- NOTE | 2017-05-18 18:46 | PN ---
Progress Note, Physician Chief Complaint: Unable to obtain - Current Medication List Current Medications: Active Medications Chlorhexidine Gluconate (Hibiclens For Decolonization -) 1 applic TP HS [facility] Last Admin: 05/17/17 21:14 Dose: 1 applic Enoxaparin Sodium (Lovenox -) 30 mg SQ DAILY [facility] Last Admin: 05/18/17 09:10 Dose: 30 mg Hydrocortisone Sodium Succinate (Solu-Cortef -) 50 mg IVPUSH Q8H [facility] Last Admin: 05/18/17 16:15 Dose: 50 mg Norepinephrine Bitartrate 8, (000 mcg/ Dextrose) 500 mls @ 18.75 mls/hr IV TITR [facility]OC[facility]NE; 5 MCG/MIN PRN Reason: Protocol Last Admin: 05/18/17 13:37 Dose: Not Given Linezolid 600 mg/ (Miscellaneous) 300 mls @ 300 mls/hr IVPB Q12H [facility] PRN Reason: Protocol Last Admin: 05/18/17 09:09 Dose: 300 mls/hr Trimethoprim/Sulfamethoxazole (100 mg/ Dextrose) 256.25 mls @ 256.25 mls/hr IVPB Q8H-IV [facility] Last Admin: 05/18/17 18:15 Dose: 256.25 mls/hr Levothyroxine Sodium (Synthroid Injection -) 44 mcg IVPUSH DAILY@0700 [facility] Last Admin: 05/18/17 06:17 Dose: 44 mcg Nystatin (Mycostatin Cream -) 1 applic TP BID [facility] Last Admin: 05/18/17 09:11 Dose: 1 applic Pantoprazole Sodium (Protonix 40mg Ivpb (Pre-Docked)) 40 mg IVPB DAILY [facility] Last Admin: 05/18/17 09:11 Dose: 40 mg - Objective Vital Signs: Vital Signs Temperature 37.0 C 05/18/17 13:34 Pulse Rate 133 H 05/18/17 18:00 Respiratory Rate 25 H 05/18/17 18:00 Blood Pressure 106/58 05/18/17 18:00 O2 Sat by Pulse Oximetry (%) 97 05/18/17 09:20 Constitutional: Yes: Other (sedated) Cardiovascular: Yes: Regular Rate and Rhythm. No: Gallop, Murmur, Rub Respiratory: Yes: Regular, Intubated, Mechanically Ventilated, Rhonchi. No: CTA Bilaterally, Rales, Wheezes Gastrointestinal: Yes: Normal Bowel Sounds, Soft. No: Distention, Tenderness Extremities: Yes: WNL Edema: No Labs: CBC, BMP 05/18/17 05:00 05/18/17 05:00 INR, PTT INR 1.11 (0.82-1.09) 05/12/17 01:35 Problem List - Problems (1) UTI (urinary tract infection) Code(s): N39.0 - URINARY TRACT INFECTION, SITE NOT SPECIFIED (2) Dementia Code(s): F03.90 - UNSPECIFIED DEMENTIA WITHOUT BEHAVIORAL DISTURBANCE (3) Pancytopenia Code(s): D61.818 - OTHER PANCYTOPENIA (4) CHF (congestive heart failure) Code(s): I50.9 - HEART FAILURE, UNSPECIFIED Qualifiers: Congestive heart failure type: unspecified congestive heart failure type Congestive heart failure chronicity: chronic Qualified Code(s): I50.9 - Heart failure, unspecified; I50.9 - Heart failure, unspecified; I50.9 - Heart failure, unspecified; I50.9 - Heart failure, unspecified (5) HTN (hypertension) Code(s): I10 - ESSENTIAL (PRIMARY) HYPERTENSION (6) Hypothyroidism Code(s): E03.9 - HYPOTHYROIDISM, UNSPECIFIED (7) Aspiration pneumonia Code(s): J69.0 - PNEUMONITIS DUE TO INHALATION OF FOOD AND VOMIT (8) Anemia Code(s): D64.9 - ANEMIA, UNSPECIFIED Qualifiers: Anemia type: other cause Other causes of anemia: acute posthemorrhagic Qualified Code(s): D62 - Acute posthemorrhagic anemia; D62 - Acute posthemorrhagic anemia (9) Septic shock Code(s): A41.9 - SEPSIS, UNSPECIFIED ORGANISM R65.21 - SEVERE SEPSIS WITH SEPTIC SHOCK (10) Acute respiratory failure Code(s): J96.00 - ACUTE RESPIRATORY FAILURE, UNSP W HYPOXIA OR HYPERCAPNIA Assessment/Plan (1) Pneumonia Assessment/Plan: -ID following and appreciate assistance -growing stenotrophomonas -continue IV bactrim Code(s): N39.0 - URINARY TRACT INFECTION, SITE NOT SPECIFIED (2) Elevated troponins Assessment/Plan: -stress induced -cardiology monitoring (3) Septic shock Assessment/Plan: -now off pressors -continue ventilator support (4) CHF (congestive heart failure) Assessment/Plan: -ECHO reviewed Code(s): I50.9 - HEART FAILURE, UNSPECIFIED Qualifiers: Congestive heart failure type: unspecified congestive heart failure type Congestive heart failure chronicity: chronic Qualified Code(s): I50.9 - Heart failure, unspecified (5) HTN (hypertension) Assessment/Plan: -off pressors -monitor, not requiring antihypertensives at this time Code(s): I10 - ESSENTIAL (PRIMARY) HYPERTENSION (6) Hypothyroidism Assessment/Plan: -continue IV synthroid Code(s): E03.9 - HYPOTHYROIDISM, UNSPECIFIED (7) Respiratory failure -currently ventilated -pulmonary following -weaning steroids -possible extubation soon (8) Dementia -present and chronic (9) UTI -growing VRE -on linezolid per ID 36 minutes spent in critical care time
[2017-05-18] MEDS ORDERED: PROPOFOL 100 ML ONE (20:19)
[2017-05-18] MEDS: CHLORHEXIDINE GLUCONATE 4% CLEANSER FOR DECOLONIZATION TP SCH (23:01)
[2017-05-19] MEDS ORDERED: PROPOFOL 100 ML ONE (01:20)
[2017-05-19] MEDS ORDERED: PT OWN MED DRAWER 7, Y5N ONE ×4 (01:24→20:18)
[2017-05-19] MEDS: TRIMETHOPRIM IVPB SCH ×3 (01:54→17:58)
[2017-05-19] MEDS: SULFAMETHOXAZOLE IVPB SCH ×3 (01:54→17:58)
[2017-05-19] MEDS: WATER IVPB SCH ×3 (01:54→17:58)
[2017-05-19] MEDS: DEXTROSE 5% IVPB SCH ×3 (01:54→17:58)
[2017-05-19] MEDS: LEVOTHYROXINE SODIUM 100 MCG VIAL IVPUSH SCH (06:04)
[2017-05-19 06:07] LABS: BASOPHIL 0.5 % (0-2.0); EOSINOPHIL 0.4 % (0-4.5); MCH 35.5 pg (25.7-33.7); MCHC 35.4 g/dl (32.0-36.0); MEAN CELL VOLUME 100.4 fl (80-96); MEAN PLT VOLUME 8.9 fl (7.5-11.1); NEUTROPHILS 88.4 % (42.8-82.8); PLATELET COUNT 219 K/MM3 (134-434); RDW 21.4 % (11.6-15.6); WHITE BLOOD COUNT 7.6 K/mm3 (4.0-10.0)
[2017-05-19] MEDS: HYDROCORTISONE SOD SUCCINATE 100 MG/2 ML VIAL IVPUSH SCH ×2 (06:37→17:58)
[2017-05-19 06:46] LABS: ALBUMIN 2.1 g/dl (3.4-5.0); GLUCOSE,RANDOM 112 mg/dL (74-106); PHOSPHOROUS 2.7 mg/dL (2.5-4.9); SGOT/AST 33 U/L (15-37)
[2017-05-19 06:48] LABS: ALK PHOS 220 U/L (45-117); ANION GAP 13 (8-16); BILIRUBIN,TOTAL 0.8 mg/dL (0.2-1.0); CALCIUM 7.5 mg/dL (8.5-10.1); CO2 23 mmol/L (21-32); SGPT/ALT 35 U/L (12-78); TOT PROT 5.1 g/dl (6.4-8.2)
[2017-05-19] MEDS: PROPOFOL 100 ML IVPB SCH ×2 (06:55→14:16)
[2017-05-19] MEDS: LINEZOLID 600 MG PREMIX BAG 600 MG in PREMIX 300 IVPB SCH ×2 (08:07→20:00)
--- NOTE | 2017-05-19 10:20 | PN ---
Progress Note, Physician Chief Complaint: Pt is intubated; sedated (off pressors; off Propofol); eyes slightly open, but shows little response. History of Present Illness: 82 year old white female with PMH of hypothyroidism, smoking disorder, and mild systolic CHF noed on 2017 ECHO; (s/p stent 2 [address]) presenting with repeat falls, and altered mental status over the past few months. Patient is poor historian so her son at bedside was complementing the interview. According to him she has fallen 5 times in the last 3-4 months despite her use of a walker. She hit her head two weeks prior during one of the falls but did not seek attention. She did not lose consciousness during that fall. She describes the falls as "my legs giving out" which is corroborated by her son who witnessed one of the events. The son claims that she also has had difficulty keep track of time and with short term memory. Her memory issues are worsened at night. She lives at home alone and has had trouble with her ADLs. She is not on blood thinners. She has also had decreased food intake over the past few months although she has only lost a few pounds. She was seen by her PCP Dr. Mitchell earlier today and then sent to the ED for admission for altered mental status. Denies fevers, chills, nausea, vomiting, diarrhea, constipation, urinary symptoms, visual changes, headaches, presyncopal sensation, or palpitations. Her PCP is Dr. Mitchell. - Current Medication List Current Medications: Active Medications Chlorhexidine Gluconate (Hibiclens For Decolonization -) 1 applic TP HS [facility] Last Admin: 05/18/17 23:01 Dose: 1 applic Enoxaparin Sodium (Lovenox -) 30 mg SQ DAILY [facility] Last Admin: 05/18/17 09:10 Dose: 30 mg Hydrocortisone Sodium Succinate (Solu-Cortef -) 50 mg IVPUSH Q8H [facility] Last Admin: 05/19/17 06:37 Dose: 50 mg Norepinephrine Bitartrate 8, (000 mcg/ Dextrose) 500 mls @ 18.75 mls/hr IV TITR JOC[facility]NE; 5 MCG/MIN PRN Reason: Protocol Last Admin: 05/18/17 13:37 Dose: Not Given Linezolid 600 mg/ (Miscellaneous) 300 mls @ 300 mls/hr IVPB Q12H J[facility]NE PRN Reason: Protocol Last Admin: 05/19/17 08:07 Dose: 300 mls/hr Trimethoprim/Sulfamethoxazole (100 mg/ Dextrose) 256.25 mls @ 256.25 mls/hr IVPB Q8H-IV [facility] Last Admin: 05/19/17 01:54 Dose: 256.25 mls/hr Propofol (Diprivan -) 100 mls @ 1.644 mls/hr IVPB TITR JOC[facility]NE; 5 MCG/KG/MIN PRN Reason: Protocol Levothyroxine Sodium (Synthroid Injection -) 44 mcg IVPUSH DAILY@0700 [facility] Last Admin: 05/19/17 06:04 Dose: 44 mcg Nystatin (Mycostatin Cream -) 1 applic TP BID [facility] Last Admin: 05/18/17 23:03 Dose: 1 applic Pantoprazole Sodium (Protonix 40mg Ivpb (Pre-Docked)) 40 mg IVPB DAILY [facility] Last Admin: 05/18/17 09:11 Dose: 40 mg - Objective Vital Signs: Vital Signs Temperature 98.4 F 05/19/17 06:00 Pulse Rate 100 H 05/19/17 08:00 Respiratory Rate 24 05/19/17 09:02 Blood Pressure 112/66 05/19/17 08:00 O2 Sat by Pulse Oximetry (%) 97 05/18/17 09:20 Labs: CBC, BMP 05/19/17 05:00 05/19/17 05:00 INR, PTT INR 1.11 (0.82-1.09) 05/12/17 01:35 Problem List - Problems (1) Acute respiratory failure with hypoxia and hypercapnia Assessment/Plan: remains intubated; off pressors. Bronchodilators, steroid, O2 per pulmonary. Code(s): J96.01 - ACUTE RESPIRATORY FAILURE WITH HYPOXIA J96.02 - ACUTE RESPIRATORY FAILURE WITH HYPERCAPNIA (2) Altered mental status, unspecified Code(s): R41.82 - ALTERED MENTAL STATUS, UNSPECIFIED (3) Anemia Code(s): D64.9 - ANEMIA, UNSPECIFIED Qualifiers: Anemia type: other cause Other causes of anemia: acute posthemorrhagic Qualified Code(s): D62 - Acute posthemorrhagic anemia; D62 - Acute posthemorrhagic anemia (4) Aspiration pneumonia Code(s): J69.0 - PNEUMONITIS DUE TO INHALATION OF FOOD AND VOMIT (5) Dementia Code(s): F03.90 - UNSPECIFIED DEMENTIA WITHOUT BEHAVIORAL DISTURBANCE (6) Fever Code(s): R50.9 - FEVER, UNSPECIFIED (7) Pancytopenia Assessment/Plan: WBCs no longer leukopenic. Anemic; Platelets WNL. f/u with back pad inspector. Code(s): D61.818 - OTHER PANCYTOPENIA (8) Shock Assessment/Plan: Off pressors. Mild systolic dysfunction. Continue fluids. Code(s): R57.9 - SHOCK, UNSPECIFIED (9) HTN (hypertension) Code(s): I10 - ESSENTIAL (PRIMARY) HYPERTENSION (10) Hypothyroidism Assessment/Plan: On Synthroid. Code(s): E03.9 - HYPOTHYROIDISM, UNSPECIFIED (11) Osteoporosis Code(s): M81.0 - AGE-RELATED OSTEOPOROSIS W/O CURRENT PATHOLOGICAL FRACTURE (12) Smoking Code(s): F17.200 - NICOTINE DEPENDENCE, UNSPECIFIED, UNCOMPLICATED (13) Acute on chronic systolic (congestive) heart failure Code(s): I50.23 - ACUTE ON CHRONIC SYSTOLIC (CONGESTIVE) HEART FAILURE (14) Sinus tachycardia Code(s): R00.0 - TACHYCARDIA, UNSPECIFIED (15) Hypomagnesemia Code(s): E83.42 - HYPOMAGNESEMIA (16) Hypokalemia Code(s): E87.6 - HYPOKALEMIA (17) Hypophosphatemia Code(s): E83.39 - OTHER DISORDERS OF PHOSPHORUS METABOLISM
--- NOTE | 2017-05-19 11:11 | PN ---
Teaching Attending Note Name of Resident: Reshma Recio ATTENDING PHYSICIAN STATEMENT I saw and evaluated the patient. I reviewed the resident's note and discussed the case with the resident. I agree with the resident's findings and plan as documented. SUBJECTIVE: Patient seen and examined in the ICU. Remains intubated and sedated. No pressors. AC Mode of vent. Intake & Output 05/16/17 05/17/17 05/18/17 05/19/17 23:59 23:59 23:59 23:59 Intake Total 4186 2734.8 2892.8 1744.4 Output Total 900 2200 1400 1400 Balance 3286 534.8 1492.8 344.4 Weight 118 lb 12.8 oz 114 lb 10.246 oz 117 lb 1.047 oz 120 lb 13.013 oz Last Vital Signs Temp Pulse Resp BP Pulse Ox 98.4 F 102 H 24 129/72 100 05/19/17 06:00 05/19/17 10:37 05/19/17 11:07 05/19/17 10:37 05/19/17 10:37 Active Medications Chlorhexidine Gluconate (Hibiclens For Decolonization -) 1 applic TP HS [facility] Last Admin: 05/18/17 23:01 Dose: 1 applic Enoxaparin Sodium (Lovenox -) 30 mg SQ DAILY [facility] Last Admin: 05/18/17 09:10 Dose: 30 mg Hydrocortisone Sodium Succinate (Solu-Cortef -) 50 mg IVPUSH Q8H [facility] Last Admin: 05/19/17 06:37 Dose: 50 mg Norepinephrine Bitartrate 8, (000 mcg/ Dextrose) 500 mls @ 18.75 mls/hr IV TITR JOCELYNE; 5 MCG/MIN PRN Reason: Protocol Last Admin: 05/18/17 13:37 Dose: Not Given Linezolid 600 mg/ (Miscellaneous) 300 mls @ 300 mls/hr IVPB Q12H JOC[facility]NE PRN Reason: Protocol Last Admin: 05/19/17 08:07 Dose: 300 mls/hr Trimethoprim/Sulfamethoxazole (100 mg/ Dextrose) 256.25 mls @ 256.25 mls/hr IVPB Q8H-IV [facility] Last Admin: 05/19/17 01:54 Dose: 256.25 mls/hr Propofol (Diprivan -) 100 mls @ 1.644 mls/hr IVPB TITR JOCELYNE; 5 MCG/KG/MIN PRN Reason: Protocol Levothyroxine Sodium (Synthroid Injection -) 44 mcg IVPUSH DAILY@0700 [facility] Last Admin: 05/19/17 06:04 Dose: 44 mcg Nystatin (Mycostatin Cream -) [address] [facility] Last Admin: 05/18/17 23:03 Dose: 1 applic Pantoprazole Sodium (Protonix 40mg Ivpb (Pre-Docked)) [address] [facility] Last Admin: 05/18/17 09:11 Dose: 40 mg General: frail woman, intubated HEENT: anicteric, no JVD CV: S1, S2, RRR Pulm: Bilateral scattered rhonchi Abd: Soft, ND, (+) BS Ext: +2 pulses Neuro: Blinks to threat, non-focal Laboratory Results - last 24 hr 05/16/17 05/19/17 05/19/17 11:52 05:00 05:00 WBC 7.6 RBC 2.44 L D Hgb 8.7 L D Hct 24.5 L D MCV 100.4 H D MCH 35.5 H MCHC 35.4 RDW 21.4 H Plt Count 219 D MPV 8.9 Neutrophils % 88.4 H Lymphocytes % 8.4 D Monocytes % 2.3 L Eosinophils % 0.4 Basophils % 0.5 Sodium 138 Potassium 3.9 Chloride 102 Carbon Dioxide 23 D Anion Gap 13 BUN 40 H Creatinine 1.0 Creat Clearance w eGFR 53.35 Random Glucose 112 H D Calcium 7.5 L Phosphorus 2.7 D Magnesium 2.0 Total Bilirubin 0.8 D AST 33 D ALT 35 Alkaline Phosphatase 220 H Total Protein 5.1 L D Albumin 2.1 L D Blood Type A NEGATIVE Antibody Screen Negative Problem List - Problems (1) Altered mental status, unspecified Code(s): R41.82 - ALTERED MENTAL STATUS, UNSPECIFIED (2) Aspiration pneumonia Code(s): J69.0 - PNEUMONITIS DUE TO INHALATION OF FOOD AND VOMIT (3) Dementia Code(s): F03.90 - UNSPECIFIED DEMENTIA WITHOUT BEHAVIORAL DISTURBANCE (4) Acute respiratory failure with hypoxia and hypercapnia Code(s): J96.01 - ACUTE RESPIRATORY FAILURE WITH HYPOXIA J96.02 - ACUTE RESPIRATORY FAILURE WITH HYPERCAPNIA (5) Pancytopenia Code(s): D61.818 - OTHER PANCYTOPENIA (6) CHF (congestive heart failure) Code(s): I50.9 - HEART FAILURE, UNSPECIFIED Qualifiers: Congestive heart failure type: unspecified congestive heart failure type Congestive heart failure chronicity: chronic Qualified Code(s): I50.9 - Heart failure, unspecified; I50.9 - Heart failure, unspecified; I50.9 - Heart failure, unspecified; I50.9 - Heart failure, unspecified (7) Hypothyroidism Code(s): E03.9 - HYPOTHYROIDISM, UNSPECIFIED (8) Paroxysmal SVT (supraventricular tachycardia) Code(s): I47.1 - SUPRAVENTRICULAR TACHYCARDIA (9) Shock Code(s): R57.9 - SHOCK, UNSPECIFIED Assessment/Plan Monitor off pressors Wean steroids to off Complete sedation vacation HOB >30, oral care SBTs as tolerated ABX coverage per ID: zosyn and vanco Strict I&O Repleat lytes Follow CXR in AM IR for GT insertion Overall prognosis appears grave given frail state and failure to thrive, continue GOC discussions with family May need Trach depending on GOC of family Dr Melgar Critical care time spent in reviewing chart, evaluating patient and formulating plan - 40 minutes.
[2017-05-19] MEDS: NYSTATIN 100,000 UNIT/GM TOPICAL CREAM 15 GM TUBE TP SCH ×2 (11:30→21:47)
[2017-05-19] MEDS: PANTOPRAZOLE SODIUM 40 MG/100 ML PRE-DOCKED IVPB SCH (11:40)
--- NOTE | 2017-05-19 13:26 | PN ---
Progress Note, Physician History of Present Illness: This is a 82 yo woman PMH: dementia, hypothyroid, HTN, active tobacco, CAD s/p sent, CHF presenting to ICU after [facility] for hypoxic respiratory failure, SVT (HR 180s) and shock. Briefly, patient initially presented for frequent falls and altered mental status with overall physical and cognitive decline over the last 6 months prior to admission. CT head: w/ central atrophy and mild microvascular ischemic gliosis. Labs significant for hypothyroid, leukopenia and pyuria, she was started on ceftriaxone. Neurology was consulted. Endocrine consulted. Mental status had some improvement while on the floor. Speech and swallow eval done c/ f aspiration. ABX were switch to zosyn given increased secretions and c/f pneumonia. Plans made for potential PEG placement. Patient continued to have waxing and waning mental status. Patient had notable right facial droop and NCHCT done w/o acute pathology. She completed a course of ABX. GI was consulted for c/f GIB. Heme also consulted given anemia and leukopenia and w/u sent: flow- -0.2% blasts, clonal B cells questionable nonspecific immunophenotype. On day of ICU admission patient had witnessed aspiration event. [facility] was called in PM for hypoxia and tachycardia. Patient transferred to ICU for hypoxic respiratory failure. Patient intubated. ABG 7.3/54/242 (ACVC: 20/400/100 +5). Patient given adenosine for SVT w/ underlying sinus rhythm. Patient continued to have RVR and was given lopressor 5mg x1 w/ HR improved to 120s. Family called but were unavailable. - History Source - Current Medication List Current Medications: Active Medications Chlorhexidine Gluconate (Hibiclens For Decolonization -) 1 applic TP HS [facility] Last Admin: 05/18/17 23:01 Dose: 1 applic Enoxaparin Sodium (Lovenox -) 30 mg SQ DAILY [facility] Last Admin: 05/18/17 09:10 Dose: 30 mg Hydrocortisone Sodium Succinate (Solu-Cortef -) 25 mg IVPUSH Q8H-IV [facility] Norepinephrine Bitartrate 8, (000 mcg/ Dextrose) 500 mls @ 18.75 mls/hr IV TITR JOC[facility]NE; 5 MCG/MIN PRN Reason: Protocol Last Admin: 05/18/17 13:37 Dose: Not Given Linezolid 600 mg/ (Miscellaneous) 300 mls @ 300 mls/hr IVPB Q12H [facility]NE PRN Reason: Protocol Last Admin: 05/19/17 08:07 Dose: 300 mls/hr Trimethoprim/Sulfamethoxazole (100 mg/ Dextrose) 256.25 mls @ 256.25 mls/hr IVPB Q8H-IV [facility] Last Admin: 05/19/17 01:54 Dose: 256.25 mls/hr Propofol (Diprivan -) 100 mls @ 1.644 mls/hr IVPB TITR JOCELYNE; 5 MCG/KG/MIN PRN Reason: Protocol Levothyroxine Sodium (Synthroid Injection -) 44 mcg IVPUSH DAILY@0700 [facility] Last Admin: 05/19/17 06:04 Dose: 44 mcg Nystatin (Mycostatin Cream -) 1 applic TP BID [facility] Last Admin: 05/18/17 23:03 Dose: 1 applic Pantoprazole Sodium (Protonix 40mg Ivpb (Pre-Docked)) 40 mg IVPB DAILY [facility] Last Admin: 05/19/17 11:40 Dose: 40 mg - Objective Vital Signs: Vital Signs Temperature 98.4 F 05/19/17 06:00 Pulse Rate 98 H 05/19/17 13:08 Respiratory Rate 24 05/19/17 13:08 Blood Pressure 91/60 05/19/17 13:08 O2 Sat by Pulse Oximetry (%) 100 05/19/17 10:37 Eyes: Yes: WNL, Conjunctiva Clear, EOM Intact HENT: Yes: WNL, Atraumatic, Normocephalic Neck: Yes: WNL, Supple, Trachea Midline Cardiovascular: Yes: WNL, Regular Rate and Rhythm Respiratory: Yes: Mechanically Ventilated Gastrointestinal: Yes: WNL, Normal Bowel Sounds Genitourinary: Yes: WNL Musculoskeletal: Yes: WNL Extremities: Yes: WNL Edema: No Integumentary: Yes: WNL Neurological: Yes: WNL, Alert, Oriented ...Motor Strength: WNL Psychiatric: Yes: WNL Labs: CBC, BMP 05/19/17 05:00 05/19/17 05:00 INR, PTT INR 1.11 (0.82-1.09) 05/12/17 01:35 Problem List - Problems (1) Acute respiratory failure with hypoxia and hypercapnia Code(s): J96.01 - ACUTE RESPIRATORY FAILURE WITH HYPOXIA J96.02 - ACUTE RESPIRATORY FAILURE WITH HYPERCAPNIA (2) Altered mental status, unspecified Code(s): R41.82 - ALTERED MENTAL STATUS, UNSPECIFIED (3) Anemia Code(s): D64.9 - ANEMIA, UNSPECIFIED Qualifiers: Anemia type: other cause Other causes of anemia: acute posthemorrhagic Qualified Code(s): D62 - Acute posthemorrhagic anemia; D62 - Acute posthemorrhagic anemia (4) Aspiration pneumonia Code(s): J69.0 - PNEUMONITIS DUE TO INHALATION OF FOOD AND VOMIT (5) Dementia Code(s): F03.90 - UNSPECIFIED DEMENTIA WITHOUT BEHAVIORAL DISTURBANCE (6) Fever Code(s): R50.9 - FEVER, UNSPECIFIED (7) Pancytopenia Code(s): D61.818 - OTHER PANCYTOPENIA (8) Shock Code(s): R57.9 - SHOCK, UNSPECIFIED (9) UTI (urinary tract infection) Code(s): N39.0 - URINARY TRACT INFECTION, SITE NOT SPECIFIED (10) Aortic stenosis Code(s): I35.0 - NONRHEUMATIC AORTIC (VALVE) STENOSIS (11) CHF (congestive heart failure) Code(s): I50.9 - HEART FAILURE, UNSPECIFIED Qualifiers: Congestive heart failure type: unspecified congestive heart failure type Congestive heart failure chronicity: chronic Qualified Code(s): I50.9 - Heart failure, unspecified; I50.9 - Heart failure, unspecified; I50.9 - Heart failure, unspecified; I50.9 - Heart failure, unspecified (12) HTN (hypertension) Code(s): I10 - ESSENTIAL (PRIMARY) HYPERTENSION (13) Hypothyroidism Code(s): E03.9 - HYPOTHYROIDISM, UNSPECIFIED (14) Macrocytosis Code(s): D75.89 - OTHER SPECIFIED DISEASES OF BLOOD AND BLOOD-FORMING ORGANS (15) Osteoporosis Code(s): M81.0 - AGE-RELATED OSTEOPOROSIS W/O CURRENT PATHOLOGICAL FRACTURE (16) Paroxysmal SVT (supraventricular tachycardia) Code(s): I47.1 - SUPRAVENTRICULAR TACHYCARDIA (17) Smoking Code(s): F17.200 - NICOTINE DEPENDENCE, UNSPECIFIED, UNCOMPLICATED (18) Smoking addiction Code(s): F17.200 - NICOTINE DEPENDENCE, UNSPECIFIED, UNCOMPLICATED Assessment/Plan - Problems (1) Acute respiratory failure with hypoxia and hypercapnia Assessment/Plan: remains intubated; off pressors. Bronchodilators, steroid, O2 per pulmonary. Code(s): J96.01 - ACUTE RESPIRATORY FAILURE WITH HYPOXIA J96.02 - ACUTE RESPIRATORY FAILURE WITH HYPERCAPNIA (2) Altered mental status, unspecified Code(s): R41.82 - ALTERED MENTAL STATUS, UNSPECIFIED (3) Anemia Code(s): D64.9 - ANEMIA, UNSPECIFIED Qualifiers: Anemia type: other cause Other causes of anemia: acute posthemorrhagic Qualified Code(s): D62 - Acute posthemorrhagic anemia; D62 - Acute posthemorrhagic anemia (4) Aspiration pneumonia Code(s): J69.0 - PNEUMONITIS DUE TO INHALATION OF FOOD AND VOMIT (5) Dementia Code(s): F03.90 - UNSPECIFIED DEMENTIA WITHOUT BEHAVIORAL DISTURBANCE (6) Fever Code(s): R50.9 - FEVER, UNSPECIFIED (7) Pancytopenia Assessment/Plan: WBCs no longer leukopenic. Anemic; Platelets WNL. f/u with family member caretaker. Code(s): D61.818 - OTHER PANCYTOPENIA (8) Shock Assessment/Plan: Off pressors. Mild systolic dysfunction. Continue fluids. Code(s): R57.9 - SHOCK, UNSPECIFIED (9) HTN (hypertension) Code(s): I10 - ESSENTIAL (PRIMARY) HYPERTENSION (10) Hypothyroidism Assessment/Plan: On Synthroid. Code(s): E03.9 - HYPOTHYROIDISM, UNSPECIFIED (11) Osteoporosis Code(s): M81.0 - AGE-RELATED OSTEOPOROSIS W/O CURRENT PATHOLOGICAL FRACTURE (12) Smoking Code(s): F17.200 - NICOTINE DEPENDENCE, UNSPECIFIED, UNCOMPLICATED (13) Acute on chronic systolic (congestive) heart failure Code(s): I50.23 - ACUTE ON CHRONIC SYSTOLIC (CONGESTIVE) HEART FAILURE (14) Sinus tachycardia Code(s): R00.0 - TACHYCARDIA, UNSPECIFIED (15) Hypomagnesemia Code(s): E83.42 - HYPOMAGNESEMIA (16) Hypokalemia Code(s): E87.6 - HYPOKALEMIA (17) Hypophosphatemia Code(s): E83.39 - OTHER DISORDERS OF PHOSPHORUS METABOLISM cc time 36 min
[2017-05-19] MEDS ORDERED: NOREPINEPHRINE BITARTRATE 4 MG/4 ML ML IV ONE (14:13)
--- NOTE | 2017-05-19 14:43 | PN ---
Progress Note, Physician History of Present Illness: intubated still on ventilator - Current Medication List Current Medications: Active Medications Chlorhexidine Gluconate (Hibiclens For Decolonization -) 1 applic TP HS [facility] Last Admin: 05/18/17 23:01 Dose: 1 applic Enoxaparin Sodium (Lovenox -) 30 mg SQ DAILY [facility] Last Admin: 05/18/17 09:10 Dose: 30 mg Hydrocortisone Sodium Succinate (Solu-Cortef -) 25 mg IVPUSH Q8H-IV [facility] Norepinephrine Bitartrate 8, (000 mcg/ Dextrose) 500 mls @ 18.75 mls/hr IV TITR JOCELYNE; 5 MCG/MIN PRN Reason: Protocol Last Admin: 05/18/17 13:37 Dose: Not Given Linezolid 600 mg/ (Miscellaneous) 300 mls @ 300 mls/hr IVPB Q12H [facility]NE PRN Reason: Protocol Last Admin: 05/19/17 08:07 Dose: 300 mls/hr Trimethoprim/Sulfamethoxazole (100 mg/ Dextrose) 256.25 mls @ 256.25 mls/hr IVPB Q8H-IV [facility] Last Admin: 05/19/17 09:55 Dose: Not Given Propofol (Diprivan -) 100 mls @ 1.644 mls/hr IVPB TITR JOCELYNE; 5 MCG/KG/MIN PRN Reason: Protocol Last Admin: 05/19/17 14:16 Dose: 9.864 mls/hr Levothyroxine Sodium (Synthroid Injection -) 44 mcg IVPUSH DAILY@0700 [facility] Last Admin: 05/19/17 06:04 Dose: 44 mcg Nystatin (Mycostatin Cream -) 1 applic TP BID [facility] Last Admin: 05/19/17 11:30 Dose: 1 applic Pantoprazole Sodium (Protonix 40mg Ivpb (Pre-Docked)) 40 mg IVPB DAILY [facility] Last Admin: 05/19/17 11:40 Dose: 40 mg - Objective Vital Signs: Vital Signs Temperature 98.4 F 05/19/17 06:00 Pulse Rate 79 05/19/17 14:33 Respiratory Rate 24 05/19/17 14:33 Blood Pressure 100/53 05/19/17 14:33 O2 Sat by Pulse Oximetry (%) 100 05/19/17 10:37 Constitutional: Yes: Other Cardiovascular: Yes: Regular Rate and Rhythm Respiratory: Yes: Intubated, Mechanically Ventilated Gastrointestinal: Yes: Normal Bowel Sounds, Soft Genitourinary: Yes: Beck Present Musculoskeletal: Yes: Other Edema: LLE: 1+, RLE: 1+ Neurological: Yes: Other Labs: CBC, BMP 05/19/17 05:00 05/19/17 05:00 INR, PTT INR 1.11 (0.82-1.09) 05/12/17 01:35 Assessment/Plan Problem List - Problems (1) UTI (urinary tract infection) Code(s): N39.0 - URINARY TRACT INFECTION, SITE NOT SPECIFIED (2) Dementia Code(s): F03.90 - UNSPECIFIED DEMENTIA WITHOUT BEHAVIORAL DISTURBANCE (3) Pancytopenia Code(s): D61.818 - OTHER PANCYTOPENIA (4) CHF (congestive heart failure) Code(s): I50.9 - HEART FAILURE, UNSPECIFIED Qualifiers: Congestive heart failure type: unspecified congestive heart failure type Congestive heart failure chronicity: chronic Qualified Code(s): I50.9 - Heart failure, unspecified (5) HTN (hypertension) Code(s): I10 - ESSENTIAL (PRIMARY) HYPERTENSION (6) Hypothyroidism Code(s): E03.9 - HYPOTHYROIDISM, UNSPECIFIED Aspiration pneumonia Code(s): J69.0 - PNEUMONITIS DUE TO INHALATION OF FOOD AND VOMIT lactic acidosis plan continue nutrition continue abx close watch nutrition support rest as per icu stable cc time 40 min
--- NOTE | 2017-05-19 15:41 | PN ---
Physical Exam: SUBJECTIVE: Patient seen and examined at bedside. 24hr events -No acute events overnight, pt afebrile -Received platelet transfusion Today -Pt moving feet this morning, coming off sedation -Still on AC mode of vent - 24/400/35%/5, consistent settings -Had PEG tube placement in IR today -spoke to Son, updated on potential need for Trach - if does not succeed with weaning trials, may need on Wednesday OBJECTIVE: Vital Signs Period Temp Pulse Resp BP Sys/Damon Pulse Ox Last 24 Hr 97.0 F-98.4 F 72-150 12-28 76-140/43-89 97-100 GENERAL: The patient is coming off sedation and vented HEAD: Normal with no signs of trauma. EYES: PERRL, sclera anicteric, conjunctiva clear NECK: Trachea midline LUNGS: decreased lung sounds appreciated in bases HEART: Regular rate and rhythm, S1, S2 without murmur, rub or gallop. ABDOMEN: Soft, nontender, nondistended, normoactive bowel sounds, no guarding, no rebound EXTREMITIES: 2+ posterior tibial pulses, warm, well-perfused, no edema. NEUROLOGICAL: difficult to assess, as pt coming off sedation Laboratory Results - last 24 hr 05/16/17 05/19/17 05/19/17 11:52 05:00 05:00 WBC 7.6 RBC 2.44 L D Hgb 8.7 L D Hct 24.5 L D MCV 100.4 H D MCH 35.5 H MCHC 35.4 RDW 21.4 H Plt Count 219 D MPV 8.9 Neutrophils % 88.4 H Lymphocytes % 8.4 D Monocytes % 2.3 L Eosinophils % 0.4 Basophils % 0.5 Sodium 138 Potassium 3.9 Chloride 102 Carbon Dioxide 23 D Anion Gap 13 BUN 40 H Creatinine 1.0 Creat Clearance w eGFR 53.35 Random Glucose 112 H D Calcium 7.5 L Phosphorus 2.7 D Magnesium 2.0 Total Bilirubin 0.8 D AST 33 D ALT 35 Alkaline Phosphatase 220 H Total Protein 5.1 L D Albumin 2.1 L D Blood Type A NEGATIVE Antibody Screen Negative Crossmatch See Detail Active Medications Generic Name Dose Route Start Last Admin Trade Name Freq PRN Reason Stop Dose Admin Chlorhexidine Gluconate 1 applic 05/13/17 22:00 05/18/17 23:01 Hibiclens For Decolonization - TP 1 applic HS JOC[facility]NE Administration Enoxaparin Sodium 30 mg 05/12/17 13:00 05/18/17 09:10 Lovenox - SQ 30 mg DAILY JOC[facility]NE Administration Hydrocortisone Sodium Succinate 25 mg 05/19/17 18:00 Solu-Cortef - IVPUSH Q8H-IV J[facility]NE Norepinephrine Bitartrate 8, 500 mls @ 18.75 mls/hr 05/12/17 12:45 05/18/17 13: 37 000 mcg/ Dextrose IV Not Given TITR JOCELYNE Protocol 5 MCG/MIN Linezolid 600 mg/ 300 mls @ 300 mls/hr 05/15/17 20:00 05/19/17 08:07 Miscellaneous IVPB 300 mls/hr Q12H [facility] Administration Protocol Trimethoprim/Sulfamethoxazole 256.25 mls @ 256.25 mls/hr 05/15/17 16:00 09:55 100 mg/ Dextrose IVPB Not Given Q8H-IV [facility] Propofol 100 mls @ 1.644 mls/hr 05/19/17 07:00 05/19/17 14:16 Diprivan - IVPB 9.864 mls/hr TITR JOC[facility]NE Administration Protocol 5 MCG/KG/MIN Levothyroxine Sodium 44 mcg 05/12/17 07:00 05/19/17 06:04 Synthroid Injection - IVPUSH 44 mcg DAILY@0700 [facility] Administration Nystatin 1 applic 05/12/17 10:00 05/19/17 11:30 Mycostatin Cream - TP 1 applic BID [facility] Administration Pantoprazole Sodium 40 mg 05/12/17 10:00 05/19/17 11:40 Protonix 40mg Ivpb (Pre-Docked) IVPB 40 mg DAILY [facility] Administration ASSESSMENT/PLAN: This is an 82 y/o F with hx of CAD s/p stent, suspected COPD, dementia, hypothyroidism, who presented with altered mentation and failure to thrive and recent diagnosis of dysphagia and UTI. She was transferred to the ICU s/p rapid response secondary to acute hypoxic respiratory failure and aspiration, septic shock, SVT. #PULMONARY Acute hypoxic respiratory failure secondary to aspiration pneumonia -Intubated, continue vent settings, assist control: 24 rate/400 tidal volume/35 % Fi02/ 5 PEEP -sedation vacation -Continue weaning trials -F/u CXR -if unsuccessful, may need Trach on Wednesday - spoke to son, agrees #NEURO -sedation vacation -as per son, mother is at baseline mentation- has had worsening dementia over past yr. Before her deterioration, states that he took care of his mother's ADL' s at her home. Mentioned that she is hard of hearing, but does not use hearing aids. #ID sepsis secondary to HCAP vs. UTI -afebrile, without leukocytosis -Solucortef has been decreased to 25mg IVP q8h (from 50), will continue to wean -Trend lactic acid -Continue abx, on Bactrim for streno. maltophia and linezolid for VRE,MRSA (Day 5) -as per ID, vanco level <15, 1g vanco given (05/18) #GI -on contact precautions for MRSA, VRE, streno. maltophia -PEG has been completed by IR (05/19) #Renal TAMIE secondary to septic shock -strict I's and O's -BUN/Cr elevated- 40/1 (improved from yesterday) -will follow UO #Heme/onc Pancytopenia -Heme on board -most likely 2/2 oncologic process -Will follow CBC #Palliative -Spoke to son on phone, stated that he wants mother full code, continued on vent. Said he is unable to come in for a family discussion since he lives far away in [place] -spoke to Danna, talked about potential for family meeting today #Lines -L IJ central line - Today is Day 8 - unable to get peripheral access, will try again -Beck #F/E/N -Will follow electrolytes -Osmolite feeds 40 mls/hr Disposition -continue management in ICU as pt is still dependent on vent, continue weaning trials. May need trach Visit type - Emergency Visit Emergency Visit: No - New Patient This patient is new to me today: No - Critical Care Critical Care patient: Yes Total Critical Care Time (in minutes): 40 Critical Care Statement: The care of this patient involved high complexity decision making to prevent further life threatening deterioration of the patient 's condition and/or to evaluate & treat vital organ system(s) failure or risk of failure.
--- NOTE | 2017-05-19 16:44 | PN ---
Progress Note, Physician Chief Complaint: Unable to obtain - Current Medication List Current Medications: Active Medications Chlorhexidine Gluconate (Hibiclens For Decolonization -) 1 applic TP HS [facility] Last Admin: 05/18/17 23:01 Dose: 1 applic Enoxaparin Sodium (Lovenox -) 30 mg SQ DAILY [facility] Last Admin: 05/18/17 09:10 Dose: 30 mg Hydrocortisone Sodium Succinate (Solu-Cortef -) 25 mg IVPUSH Q8H-IV [facility] Norepinephrine Bitartrate 8, (000 mcg/ Dextrose) 500 mls @ 18.75 mls/hr IV TITR JOCELYNE; 5 MCG/MIN PRN Reason: Protocol Last Admin: 05/18/17 13:37 Dose: Not Given Linezolid 600 mg/ (Miscellaneous) 300 mls @ 300 mls/hr IVPB Q12H [facility]NE PRN Reason: Protocol Last Admin: 05/19/17 08:07 Dose: 300 mls/hr Trimethoprim/Sulfamethoxazole (100 mg/ Dextrose) 256.25 mls @ 256.25 mls/hr IVPB Q8H-IV [facility] Last Admin: 05/19/17 09:55 Dose: Not Given Propofol (Diprivan -) 100 mls @ 1.644 mls/hr IVPB TITR JOCELYNE; 5 MCG/KG/MIN PRN Reason: Protocol Last Titration: 05/19/17 16:21 Dose: 0 mcg/kg/min Levothyroxine Sodium (Synthroid Injection -) 44 mcg IVPUSH DAILY@0700 [facility] Last Admin: 05/19/17 06:04 Dose: 44 mcg Nystatin (Mycostatin Cream -) 1 applic TP BID [facility] Last Admin: 05/19/17 11:30 Dose: 1 applic Pantoprazole Sodium (Protonix 40mg Ivpb (Pre-Docked)) 40 mg IVPB DAILY [facility] Last Admin: 05/19/17 11:40 Dose: 40 mg - Objective Vital Signs: Vital Signs Temperature 36.9 C 05/19/17 06:00 Pulse Rate 100 H 05/19/17 15:58 Respiratory Rate 24 05/19/17 15:58 Blood Pressure 101/51 05/19/17 15:58 O2 Sat by Pulse Oximetry (%) 100 05/19/17 10:37 Constitutional: Yes: No Distress, Calm, Other (sedated) Cardiovascular: Yes: Regular Rate and Rhythm. No: Gallop, Murmur, Rub Respiratory: Yes: Regular, Intubated, Mechanically Ventilated, Rhonchi. No: CTA Bilaterally, Rales, Wheezes Gastrointestinal: Yes: Normal Bowel Sounds, Soft, Other (PEG tube in place). No : Distention, Tenderness Extremities: Yes: WNL Edema: No Labs: CBC, BMP 05/19/17 05:00 05/19/17 05:00 INR, PTT INR 1.11 (0.82-1.09) 05/12/17 01:35 Problem List - Problems (1) UTI (urinary tract infection) Code(s): N39.0 - URINARY TRACT INFECTION, SITE NOT SPECIFIED (2) Dementia Code(s): F03.90 - UNSPECIFIED DEMENTIA WITHOUT BEHAVIORAL DISTURBANCE (3) Pancytopenia Code(s): D61.818 - OTHER PANCYTOPENIA (4) CHF (congestive heart failure) Code(s): I50.9 - HEART FAILURE, UNSPECIFIED Qualifiers: Congestive heart failure type: unspecified congestive heart failure type Congestive heart failure chronicity: chronic Qualified Code(s): I50.9 - Heart failure, unspecified; I50.9 - Heart failure, unspecified; I50.9 - Heart failure, unspecified; I50.9 - Heart failure, unspecified (5) HTN (hypertension) Code(s): I10 - ESSENTIAL (PRIMARY) HYPERTENSION (6) Hypothyroidism Code(s): E03.9 - HYPOTHYROIDISM, UNSPECIFIED (7) Aspiration pneumonia Code(s): J69.0 - PNEUMONITIS DUE TO INHALATION OF FOOD AND VOMIT (8) Anemia Code(s): D64.9 - ANEMIA, UNSPECIFIED Qualifiers: Anemia type: other cause Other causes of anemia: acute posthemorrhagic Qualified Code(s): D62 - Acute posthemorrhagic anemia; D62 - Acute posthemorrhagic anemia (9) Septic shock Code(s): A41.9 - SEPSIS, UNSPECIFIED ORGANISM R65.21 - SEVERE SEPSIS WITH SEPTIC SHOCK (10) Acute respiratory failure Code(s): J96.00 - ACUTE RESPIRATORY FAILURE, UNSP W HYPOXIA OR HYPERCAPNIA Assessment/Plan (1) Pneumonia Assessment/Plan: -ID following and appreciate assistance -growing stenotrophomonas -continue IV bactrim Code(s): N39.0 - URINARY TRACT INFECTION, SITE NOT SPECIFIED (2) Elevated troponins Assessment/Plan: -stress induced -cardiology monitoring (3) Septic shock Assessment/Plan: -now off pressors -continue ventilator support -however with low bp, may be secondary to procedure -monitor, may need to restart pressors (4) CHF (congestive heart failure) Assessment/Plan: -ECHO reviewed Code(s): I50.9 - HEART FAILURE, UNSPECIFIED Qualifiers: Congestive heart failure type: unspecified congestive heart failure type Congestive heart failure chronicity: chronic Qualified Code(s): I50.9 - Heart failure, unspecified (5) HTN (hypertension) Assessment/Plan: -off pressors -monitor, not requiring antihypertensives at this time Code(s): I10 - ESSENTIAL (PRIMARY) HYPERTENSION (6) Hypothyroidism Assessment/Plan: -continue IV synthroid Code(s): E03.9 - HYPOTHYROIDISM, UNSPECIFIED (7) Respiratory failure -currently ventilated -pulmonary following -weaning steroids -possible extubation soon (8) Dementia -present and chronic (9) UTI -growing VRE -on linezolid per ID 32 minutes spent in critical care time
[2017-05-19] MEDS: CHLORHEXIDINE GLUCONATE 4% CLEANSER FOR DECOLONIZATION TP SCH (21:47)
[2017-05-20] MEDS: SULFAMETHOXAZOLE IVPB SCH ×3 (01:07→17:20)
[2017-05-20] MEDS: TRIMETHOPRIM IVPB SCH ×3 (01:07→17:20)
[2017-05-20] MEDS: WATER IVPB SCH ×3 (01:07→17:20)
[2017-05-20] MEDS: DEXTROSE 5% IVPB SCH ×3 (01:07→17:20)
[2017-05-20] MEDS ORDERED: PT OWN MED DRAWER 7, Y5N ONE ×6 (01:09→23:52)
[2017-05-20] MEDS: HYDROCORTISONE SOD SUCCINATE 100 MG/2 ML VIAL IVPUSH SCH ×3 (01:53→17:22)
[2017-05-20 06:10] LABS: BASOPHIL 0.5 % (0-2.0); EOSINOPHIL 0.4 % (0-4.5); MCH 34.8 pg (25.7-33.7); MCHC 34.9 g/dl (32.0-36.0); MEAN CELL VOLUME 99.9 fl (80-96); MEAN PLT VOLUME 9.2 fl (7.5-11.1); NEUTROPHILS 89.7 % (42.8-82.8); PLATELET COUNT 222 K/MM3 (134-434); RDW 21.9 % (11.6-15.6); WHITE BLOOD COUNT 8.1 K/mm3 (4.0-10.0)
[2017-05-20] MEDS: LEVOTHYROXINE SODIUM 100 MCG VIAL IVPUSH SCH (06:17)
[2017-05-20 06:33] LABS: ANION GAP 13 (8-16); CALCIUM 7.5 mg/dL (8.5-10.1); CO2 22 mmol/L (21-32); CREATININE 0.9 mg/dL (0.55-1.02); GLUCOSE,RANDOM 104 mg/dL (74-106)
[2017-05-20] MEDS: LINEZOLID 600 MG PREMIX BAG 600 MG in PREMIX 300 IVPB SCH ×2 (09:17→20:14)
[2017-05-20] MEDS: PANTOPRAZOLE SODIUM 40 MG/100 ML PRE-DOCKED IVPB SCH (09:18)
--- NOTE | 2017-05-20 10:58 | PN ---
Progress Note, Physician Chief Complaint: Unable to obtain - Current Medication List Current Medications: Active Medications Chlorhexidine Gluconate (Hibiclens For Decolonization -) 1 applic TP HS [facility] Last Admin: 05/19/17 21:47 Dose: 1 applic Enoxaparin Sodium (Lovenox -) 30 mg SQ DAILY [facility] Last Admin: 05/18/17 09:10 Dose: 30 mg Hydrocortisone Sodium Succinate (Solu-Cortef -) 25 mg IVPUSH Q8H-IV [facility] Last Admin: 05/20/17 09:18 Dose: 25 mg Linezolid 600 mg/ (Miscellaneous) 300 mls @ 300 mls/hr IVPB Q12H [facility] PRN Reason: Protocol Last Admin: 05/20/17 09:17 Dose: 300 mls/hr Trimethoprim/Sulfamethoxazole (100 mg/ Dextrose) 256.25 mls @ 256.25 mls/hr IVPB Q8H-IV [facility] Last Admin: 05/20/17 09:15 Dose: 256.25 mls/hr Levothyroxine Sodium (Synthroid Injection -) 44 mcg IVPUSH DAILY@0700 [facility] Last Admin: 05/20/17 06:17 Dose: 44 mcg Nystatin (Mycostatin Cream -) 1 applic TP BID [facility] Last Admin: 05/19/17 21:47 Dose: 1 applic Pantoprazole Sodium (Protonix 40mg Ivpb (Pre-Docked)) 40 mg IVPB DAILY [facility] Last Admin: 05/20/17 09:18 Dose: 40 mg - Objective Vital Signs: Vital Signs Temperature 36.9 C 05/20/17 06:00 Pulse Rate 122 H 05/20/17 10:17 Respiratory Rate 14 05/20/17 10:19 Blood Pressure 117/56 05/20/17 10:00 O2 Sat by Pulse Oximetry (%) 100 05/20/17 10:19 Constitutional: Yes: No Distress, Calm Cardiovascular: Yes: Regular Rate and Rhythm. No: Gallop, Murmur, Rub Respiratory: Yes: Regular, CTA Bilaterally, Intubated, Mechanically Ventilated. No: Rales, Rhonchi, Wheezes Gastrointestinal: Yes: Normal Bowel Sounds, Soft. No: Distention, Tenderness Extremities: Yes: WNL Edema: No Labs: CBC, BMP 05/20/17 05:00 05/20/17 05:00 INR, PTT INR 1.11 (0.82-1.09) 05/12/17 01:35 Problem List - Problems (1) UTI (urinary tract infection) Code(s): N39.0 - URINARY TRACT INFECTION, SITE NOT SPECIFIED (2) Dementia Code(s): F03.90 - UNSPECIFIED DEMENTIA WITHOUT BEHAVIORAL DISTURBANCE (3) Pancytopenia Code(s): D61.818 - OTHER PANCYTOPENIA (4) CHF (congestive heart failure) Code(s): I50.9 - HEART FAILURE, UNSPECIFIED Qualifiers: Congestive heart failure type: unspecified congestive heart failure type Congestive heart failure chronicity: chronic Qualified Code(s): I50.9 - Heart failure, unspecified; I50.9 - Heart failure, unspecified; I50.9 - Heart failure, unspecified; I50.9 - Heart failure, unspecified (5) HTN (hypertension) Code(s): I10 - ESSENTIAL (PRIMARY) HYPERTENSION (6) Hypothyroidism Code(s): E03.9 - HYPOTHYROIDISM, UNSPECIFIED (7) Aspiration pneumonia Code(s): J69.0 - PNEUMONITIS DUE TO INHALATION OF FOOD AND VOMIT (8) Anemia Code(s): D64.9 - ANEMIA, UNSPECIFIED Qualifiers: Anemia type: other cause Other causes of anemia: acute posthemorrhagic Qualified Code(s): D62 - Acute posthemorrhagic anemia; D62 - Acute posthemorrhagic anemia (9) Septic shock Code(s): A41.9 - SEPSIS, UNSPECIFIED ORGANISM R65.21 - SEVERE SEPSIS WITH SEPTIC SHOCK (10) Acute respiratory failure Code(s): J96.00 - ACUTE RESPIRATORY FAILURE, UNSP W HYPOXIA OR HYPERCAPNIA Assessment/Plan (1) Pneumonia Assessment/Plan: -ID following and appreciate assistance -growing stenotrophomonas -continue IV bactrim per ID Code(s): N39.0 - URINARY TRACT INFECTION, SITE NOT SPECIFIED (2) Elevated troponins Assessment/Plan: -stress induced -cardiology monitoring (3) Septic shock Assessment/Plan: -resolved -continue IV antibiotics per ID (4) CHF (congestive heart failure) Assessment/Plan: -ECHO reviewed Code(s): I50.9 - HEART FAILURE, UNSPECIFIED Qualifiers: Congestive heart failure type: unspecified congestive heart failure type Congestive heart failure chronicity: chronic Qualified Code(s): I50.9 - Heart failure, unspecified (5) HTN (hypertension) Assessment/Plan: -off pressors -monitor, not requiring antihypertensives at this time Code(s): I10 - ESSENTIAL (PRIMARY) HYPERTENSION (6) Hypothyroidism Assessment/Plan: -continue IV synthroid Code(s): E03.9 - HYPOTHYROIDISM, UNSPECIFIED (7) Respiratory failure -currently ventilated -pulmonary following and managing vent (8) Dementia -present and chronic (9) UTI -growing VRE -on linezolid per ID 33 minutes spent in critical care time
[2017-05-20] MEDS: ENOXAPARIN NA (PORCINE) 30 MG/0.3 ML DISP.SYRIN SQ SCH (11:09)
[2017-05-20] MEDS: NYSTATIN 100,000 UNIT/GM TOPICAL CREAM 15 GM TUBE TP SCH ×2 (11:10→21:50)
--- NOTE | 2017-05-20 14:05 | PN ---
Teaching Attending Note Name of Resident: Reshma Recio ATTENDING PHYSICIAN STATEMENT I saw and evaluated the patient. I reviewed the resident's note and discussed the case with the resident. I agree with the resident's findings and plan as documented. SUBJECTIVE: Patient seen and examined in the ICU. Remains intubated. Awake and tracks with her eyes. Does not follow commands. No pressors. AC Mode of vent. Intake & Output 05/17/17 05/18/17 05/19/17 05/20/17 23:59 23:59 23:59 23:59 Intake Total 2734.8 2892.8 2044.4 Output Total 2200 1400 2700 500 Balance 534.8 1492.8 -655.6 -500 Weight 114 lb 10.246 oz 117 lb 1.047 oz 120 lb 13.013 oz 119 lb 12.8 oz Last Vital Signs Temp Pulse Resp BP Pulse Ox 98.4 F 122 H 26 H 117/56 100 05/20/17 06:00 05/20/17 10:17 05/20/17 12:29 05/20/17 10:00 05/20/17 10:19 Active Medications Chlorhexidine Gluconate (Hibiclens For Decolonization -) 1 applic TP HS [facility] Last Admin: 05/19/17 21:47 Dose: 1 applic Enoxaparin Sodium (Lovenox -) 30 mg SQ DAILY [facility] Last Admin: 05/20/17 11:09 Dose: 30 mg Hydrocortisone Sodium Succinate (Solu-Cortef -) 25 mg IVPUSH Q8H-IV [facility] Last Admin: 05/20/17 09:18 Dose: 25 mg Linezolid 600 mg/ (Miscellaneous) 300 mls @ 300 mls/hr IVPB Q12H [facility]OCELYNE PRN Reason: Protocol Last Admin: 05/20/17 09:17 Dose: 300 mls/hr Trimethoprim/Sulfamethoxazole (100 mg/ Dextrose) 256.25 mls @ 256.25 mls/hr IVPB Q8H-IV [facility] Last Admin: 05/20/17 09:15 Dose: 256.25 mls/hr Levothyroxine Sodium (Synthroid Injection -) 44 mcg IVPUSH DAILY@0700 [facility] Last Admin: 05/20/17 06:17 Dose: 44 mcg Nystatin (Mycostatin Cream -) 1 applic TP BID [facility] Last Admin: 05/20/17 11:10 Dose: 1 applic Pantoprazole Sodium (Protonix 40mg Ivpb (Pre-Docked)) 40 mg IVPB DAILY [facility] Last Admin: 05/20/17 09:18 Dose: 40 mg General: frail woman, intubated HEENT: anicteric, no JVD CV: S1, S2, RRR Pulm: Bilateral scattered rhonchi Abd: Soft, ND, (+) BS Ext: +2 pulses Neuro: Blinks to threat, non-focal Laboratory Results - last 24 hr 05/16/17 05/20/17 05/20/17 11:52 05:00 05:00 WBC 8.1 RBC 2.24 L Hgb 7.8 L D Hct 22.3 L MCV 99.9 H MCH 34.8 H MCHC 34.9 RDW 21.9 H Plt Count 222 MPV 9.2 Neutrophils % 89.7 H Lymphocytes % 8.0 Monocytes % 1.4 L Eosinophils % 0.4 Basophils % 0.5 Sodium 138 Potassium 3.9 Chloride 103 Carbon Dioxide 22 Anion Gap 13 BUN 36 H Creatinine 0.9 Random Glucose 104 Calcium 7.5 L Blood Type A NEGATIVE Antibody Screen Negative Crossmatch See Detail Problem List - Problems (1) Altered mental status, unspecified Code(s): R41.82 - ALTERED MENTAL STATUS, UNSPECIFIED (2) Aspiration pneumonia Code(s): J69.0 - PNEUMONITIS DUE TO INHALATION OF FOOD AND VOMIT (3) Dementia Code(s): F03.90 - UNSPECIFIED DEMENTIA WITHOUT BEHAVIORAL DISTURBANCE (4) Acute respiratory failure with hypoxia and hypercapnia Code(s): J96.01 - ACUTE RESPIRATORY FAILURE WITH HYPOXIA J96.02 - ACUTE RESPIRATORY FAILURE WITH HYPERCAPNIA (5) Pancytopenia Code(s): D61.818 - OTHER PANCYTOPENIA (6) CHF (congestive heart failure) Code(s): I50.9 - HEART FAILURE, UNSPECIFIED Qualifiers: Congestive heart failure type: unspecified congestive heart failure type Congestive heart failure chronicity: chronic Qualified Code(s): I50.9 - Heart failure, unspecified; I50.9 - Heart failure, unspecified; I50.9 - Heart failure, unspecified; I50.9 - Heart failure, unspecified (7) Hypothyroidism Code(s): E03.9 - HYPOTHYROIDISM, UNSPECIFIED (8) Paroxysmal SVT (supraventricular tachycardia) Code(s): I47.1 - SUPRAVENTRICULAR TACHYCARDIA (9) Shock Code(s): R57.9 - SHOCK, UNSPECIFIED Assessment/Plan Monitor off pressors Wean steroids to off Complete sedation vacation HOB >30, oral care SBTs as tolerated with hopes of extubation ABX coverage per ID: Zosyn and vanco Strict I&O Repleat lytes Follow CXR in AM If succumbs to another respiratory failure -> Will need Trach Dr Melgar Critical care time spent in reviewing chart, evaluating patient and formulating plan - 40 minutes.
--- NOTE | 2017-05-20 14:09 | PN ---
Physical Exam: SUBJECTIVE: Patient seen and examined at bedside. 24 hr events -No acute events overnight -afebrile Today -pt off sedation, extubated on venti mask -peripheral access obtained x2 -central line removed today (05/20/17) OBJECTIVE: Vital Signs Period Temp Pulse Resp BP Sys/Damon Pulse Ox Last 24 Hr 98.4 F-99.2 F 72-122 14-26 79-119/43-71 98-100 GENERAL: The patient is awake and on venti mask. Coughing HEAD: Normal with no signs of trauma. EYES: PERRL, extraocular movements intact, sclera anicteric, conjunctiva clear. NECK: Trachea midline, supple. LUNGS: Breath sounds equal, clear to auscultation bilaterally, no wheezes, no crackles, no accessory muscle use. HEART: Regular rate and rhythm, S1, S2 without murmur, rub or gallop. ABDOMEN: Soft, nontender, nondistended, normoactive bowel sounds, no guarding, no rebound EXTREMITIES: 2+ posterior tibial pulses, warm, well-perfused, no edema. NEUROLOGICAL: difficult to assess d/t pt's dementia Laboratory Results - last 24 hr 05/16/17 05/20/17 05/20/17 11:52 05:00 05:00 WBC 8.1 RBC 2.24 L Hgb 7.8 L D Hct 22.3 L MCV 99.9 H MCH 34.8 H MCHC 34.9 RDW 21.9 H Plt Count 222 MPV 9.2 Neutrophils % 89.7 H Lymphocytes % 8.0 Monocytes % 1.4 L Eosinophils % 0.4 Basophils % 0.5 Sodium 138 Potassium 3.9 Chloride 103 Carbon Dioxide 22 Anion Gap 13 BUN 36 H Creatinine 0.9 Random Glucose 104 Calcium 7.5 L Blood Type A NEGATIVE Antibody Screen Negative Crossmatch See Detail Active Medications Generic Name Dose Route Start Last Admin Trade Name Freq PRN Reason Stop Dose Admin Chlorhexidine Gluconate 1 applic 05/13/17 22:00 05/19/17 21:47 Hibiclens For Decolonization - TP 1 applic HS JOCELYNE Administration Enoxaparin Sodium 30 mg 05/12/17 13:00 05/20/17 11:09 Lovenox - SQ 30 mg DAILY [facility]OC[facility]NE Administration Hydrocortisone Sodium Succinate 25 mg 05/19/17 18:00 05/20/17 09:18 Solu-Cortef - IVPUSH 25 mg Q8H-IV [facility] Administration Linezolid 600 mg/ 300 mls @ 300 mls/hr 05/15/17 20:00 05/20/17 09:17 Miscellaneous IVPB 300 mls/hr Q12H [facility]OC[facility]NE Administration Protocol Trimethoprim/Sulfamethoxazole 256.25 mls @ 256.25 mls/hr 05/15/17 16:00 09:15 100 mg/ Dextrose IVPB 256.25 mls/hr Q8H-IV [facility] Administration Levothyroxine Sodium 44 mcg 05/12/17 07:00 05/20/17 06:17 Synthroid Injection - IVPUSH 44 mcg DAILY@0700 [facility] Administration Nystatin 1 applic 05/12/17 10:00 05/20/17 11:10 Mycostatin Cream - TP 1 applic BID [facility] Administration Pantoprazole Sodium 40 mg 05/12/17 10:00 05/20/17 09:18 Protonix 40mg Ivpb (Pre-Docked) IVPB 40 mg DAILY [facility] Administration ASSESSMENT/PLAN: This is an 82 y/o F with hx of CAD s/p stent, suspected COPD, dementia, hypothyroidism, who presented with altered mentation and failure to thrive and recent diagnosis of dysphagia and UTI. She was transferred to the ICU s/p rapid response secondary to acute hypoxic respiratory failure and aspiration, septic shock, SVT. #PULMONARY Acute hypoxic respiratory failure secondary to aspiration pneumonia -extubated, on venti mask, 02 99% -if unsuccessful on venti mask- may need trach -central line has been removed (05/20) #NEURO -as per son, mother is at baseline mentation- has had worsening dementia over past yr. Before her deterioration, states that he took care of his mother's ADL' s at her home. Mentioned that she is hard of hearing, but does not use hearing aids. #ID sepsis secondary to HCAP vs. UTI -afebrile, without leukocytosis -Solucortef has been decreased to 25mg IVP q8h (from 50), will continue to wean -Trend lactic acid -Continue abx, on Bactrim for streno. maltophia and linezolid for VRE,MRSA (Day 6) -as per ID, vanco level <15, 1g vanco given (05/18) #GI -on contact precautions for MRSA, VRE, streno. maltophia -PEG has been completed by IR (05/19) #Renal TAMIE secondary to septic shock -strict I's and O's -BUN/Cr elevated- 36/0.9 (improved from yesterday) -will follow UO #Heme/onc Pancytopenia -Heme on board -most likely 2/2 oncologic process -Will follow CBC #Palliative -Spoke to son on phone, stated that he wants mother full code, continued on vent. Said he is unable to come in for a family discussion since he lives far away in [place] -spoke to Danna, talked about potential for family meeting today #Lines -L IJ central line removed today* -Beck #F/E/N -Will follow electrolytes -Osmolite feeds 40 mls/hr Disposition -continue management in ICU May need trach if fails on venti mask Visit type - Emergency Visit Emergency Visit: No - New Patient This patient is new to me today: No - Critical Care Critical Care patient: Yes Total Critical Care Time (in minutes): 40 Critical Care Statement: The care of this patient involved high complexity decision making to prevent further life threatening deterioration of the patient 's condition and/or to evaluate & treat vital organ system(s) failure or risk of failure.
--- NOTE | 2017-05-20 16:35 | PN ---
Progress Note, Physician History of Present Illness: patient stable extubated today central line removed - Current Medication List Current Medications: Active Medications Chlorhexidine Gluconate (Hibiclens For Decolonization -) 1 applic TP HS [facility] Last Admin: 05/19/17 21:47 Dose: 1 applic Enoxaparin Sodium (Lovenox -) 30 mg SQ DAILY [facility] Last Admin: 05/20/17 11:09 Dose: 30 mg Hydrocortisone Sodium Succinate (Solu-Cortef -) 25 mg IVPUSH Q8H-IV [facility] Last Admin: 05/20/17 09:18 Dose: 25 mg Linezolid 600 mg/ (Miscellaneous) 300 mls @ 300 mls/hr IVPB Q12H [facility] PRN Reason: Protocol Last Admin: 05/20/17 09:17 Dose: 300 mls/hr Trimethoprim/Sulfamethoxazole (100 mg/ Dextrose) 256.25 mls @ 256.25 mls/hr IVPB Q8H-IV [facility] Last Admin: 05/20/17 09:15 Dose: 256.25 mls/hr Levothyroxine Sodium (Synthroid Injection -) 44 mcg IVPUSH DAILY@0700 [facility] Last Admin: 05/20/17 06:17 Dose: 44 mcg Nystatin (Mycostatin Cream -) 1 applic TP BID [facility] Last Admin: 05/20/17 11:10 Dose: 1 applic Pantoprazole Sodium (Protonix 40mg Ivpb (Pre-Docked)) 40 mg IVPB DAILY [facility] Last Admin: 05/20/17 09:18 Dose: 40 mg - Objective Vital Signs: Vital Signs Temperature 98.4 F 05/20/17 06:00 Pulse Rate 121 H 05/20/17 14:08 Respiratory Rate 14 05/20/17 14:00 Blood Pressure 148/87 05/20/17 14:00 O2 Sat by Pulse Oximetry (%) 97 05/20/17 14:08 Constitutional: Yes: No Distress Neck: Yes: Supple Cardiovascular: Yes: Regular Rate and Rhythm Respiratory: Yes: Poor Air Entry, Other (on face mask) Gastrointestinal: Yes: Normal Bowel Sounds, Soft Musculoskeletal: Yes: WNL Edema: LLE: 1+, RLE: 1+ Neurological: Yes: Other Psychiatric: Yes: Other Labs: CBC, BMP 05/20/17 05:00 05/20/17 05:00 INR, PTT INR 1.11 (0.82-1.09) 05/12/17 01:35 Assessment/Plan Problem List - Problems (1) UTI (urinary tract infection) Code(s): N39.0 - URINARY TRACT INFECTION, SITE NOT SPECIFIED (2) Dementia Code(s): F03.90 - UNSPECIFIED DEMENTIA WITHOUT BEHAVIORAL DISTURBANCE (3) Pancytopenia Code(s): D61.818 - OTHER PANCYTOPENIA (4) CHF (congestive heart failure) Code(s): I50.9 - HEART FAILURE, UNSPECIFIED Qualifiers: Congestive heart failure type: unspecified congestive heart failure type Congestive heart failure chronicity: chronic Qualified Code(s): I50.9 - Heart failure, unspecified (5) HTN (hypertension) Code(s): I10 - ESSENTIAL (PRIMARY) HYPERTENSION (6) Hypothyroidism Code(s): E03.9 - HYPOTHYROIDISM, UNSPECIFIED Aspiration pneumonia Code(s): J69.0 - PNEUMONITIS DUE TO INHALATION OF FOOD AND VOMIT lactic acidosis plan continue nutrition continue abx close watch nutrition support rest as per icu stable cc time 40 min
[2017-05-20] MEDS: CHLORHEXIDINE GLUCONATE 4% CLEANSER FOR DECOLONIZATION TP SCH (21:50)
[2017-05-21] MEDS: WATER IVPB SCH ×4 (01:06→17:42)
[2017-05-21] MEDS: SULFAMETHOXAZOLE IVPB SCH ×4 (01:06→17:42)
[2017-05-21] MEDS: HYDROCORTISONE SOD SUCCINATE 100 MG/2 ML VIAL IVPUSH SCH ×3 (01:06→17:41)
[2017-05-21] MEDS: DEXTROSE 5% IVPB SCH ×4 (01:06→17:42)
[2017-05-21] MEDS: TRIMETHOPRIM IVPB SCH ×4 (01:06→17:42)
[2017-05-21] MEDS ORDERED: PT OWN MED DRAWER 7, Y5N ONE ×2 (05:02→10:05)
[2017-05-21] MEDS: LEVOTHYROXINE SODIUM 100 MCG VIAL IVPUSH SCH (06:07)
[2017-05-21 06:45] LABS: MCH 35.2 pg (25.7-33.7); MCHC 35.4 g/dl (32.0-36.0); MEAN CELL VOLUME 99.6 fl (80-96); MEAN PLT VOLUME 8.7 fl (7.5-11.1); PLATELET COUNT 238 K/MM3 (134-434); RDW 21.5 % (11.6-15.6); WHITE BLOOD COUNT 7.5 K/mm3 (4.0-10.0)
[2017-05-21 07:13] LABS: ANION GAP 13 (8-16); CALCIUM 7.4 mg/dL (8.5-10.1); CO2 22 mmol/L (21-32); GLUCOSE,RANDOM 130 mg/dL (74-106)
[2017-05-21 07:16] LABS: CREATININE 0.8 mg/dL (0.55-1.02)
[2017-05-21] MEDS: LINEZOLID 600 MG PREMIX BAG 600 MG in PREMIX 300 IVPB SCH (09:00)
[2017-05-21] MEDS: NYSTATIN 100,000 UNIT/GM TOPICAL CREAM 15 GM TUBE TP SCH ×2 (10:37→21:14)
[2017-05-21] MEDS: PANTOPRAZOLE SODIUM 40 MG/100 ML PRE-DOCKED IVPB SCH (10:37)
[2017-05-21] MEDS: ENOXAPARIN NA (PORCINE) 30 MG/0.3 ML DISP.SYRIN SQ SCH (10:37)
--- NOTE | 2017-05-21 11:36 | PN ---
Teaching Attending Note Name of Resident: Reshma Recio ATTENDING PHYSICIAN STATEMENT I saw and evaluated the patient. I reviewed the resident's note and discussed the case with the resident. I agree with the resident's findings and plan as documented. SUBJECTIVE: Patient seen and examined in the ICU. Remains extubated. Awake and tracks with her eyes. Does not follow commands. No pressors. Intake & Output 05/18/17 05/19/17 05/20/17 05/21/17 23:59 23:59 23:59 23:59 Intake Total 2892.8 2044.4 965 600 Output Total 1400 2700 1500 400 Balance 1492.8 -655.6 -535 200 Weight 117 lb 1.047 oz 120 lb 13.013 oz 119 lb 12.8 oz Last Vital Signs Temp Pulse Resp BP Pulse Ox 98.6 F 99 H 11 L 138/73 100 05/21/17 06:00 05/21/17 06:00 05/21/17 06:00 05/21/17 06:00 05/20/17 20:59 Active Medications Chlorhexidine Gluconate (Hibiclens For Decolonization -) 1 applic TP HS [facility] Last Admin: 05/20/17 21:50 Dose: 1 applic Enoxaparin Sodium (Lovenox -) 30 mg SQ DAILY [facility] Last Admin: 05/21/17 10:37 Dose: 30 mg Hydrocortisone Sodium Succinate (Solu-Cortef -) 25 mg IVPUSH Q8H-IV [facility] Last Admin: 05/21/17 10:37 Dose: 25 mg Linezolid 600 mg/ (Miscellaneous) 300 mls @ 300 mls/hr IVPB Q12H [facility] PRN Reason: Protocol Last Admin: 05/21/17 09:00 Dose: 300 mls/hr Trimethoprim/Sulfamethoxazole (100 mg/ Dextrose) 256.25 mls @ 256.25 mls/hr IVPB Q8H-IV [facility] Last Admin: 05/21/17 10:36 Dose: 256.25 mls/hr Levothyroxine Sodium (Synthroid Injection -) 44 mcg IVPUSH DAILY@0700 [facility] Last Admin: 05/21/17 06:07 Dose: 44 mcg Nystatin (Mycostatin Cream -) 1 applic TP BID [facility] Last Admin: 05/21/17 10:37 Dose: 1 applic Pantoprazole Sodium (Protonix 40mg Ivpb (Pre-Docked)) 40 mg IVPB DAILY [facility] Last Admin: 05/21/17 10:37 Dose: 40 mg General: frail woman, extubated HEENT: anicteric, no JVD CV: S1, S2, RRR Pulm: Bilateral scattered rhonchi Abd: Soft, ND, (+) BS Ext: +2 pulses Neuro: Blinks to threat, non-focal Laboratory Results - last 24 hr 05/21/17 05/21/17 06:20 06:20 WBC 7.5 RBC 2.61 L Hgb 9.2 L D Hct 26.0 L D MCV 99.6 H MCH 35.2 H MCHC 35.4 RDW 21.5 H Plt Count 238 MPV 8.7 Sodium 138 Potassium 3.7 Chloride 103 Carbon Dioxide 22 Anion Gap 13 BUN 30 H Creatinine 0.8 Random Glucose 130 H D Calcium 7.4 L Problem List - Problems (1) Altered mental status, unspecified Code(s): R41.82 - ALTERED MENTAL STATUS, UNSPECIFIED (2) Aspiration pneumonia Code(s): J69.0 - PNEUMONITIS DUE TO INHALATION OF FOOD AND VOMIT (3) Dementia Code(s): F03.90 - UNSPECIFIED DEMENTIA WITHOUT BEHAVIORAL DISTURBANCE (4) Acute respiratory failure with hypoxia and hypercapnia Code(s): J96.01 - ACUTE RESPIRATORY FAILURE WITH HYPOXIA J96.02 - ACUTE RESPIRATORY FAILURE WITH HYPERCAPNIA (5) Pancytopenia Code(s): D61.818 - OTHER PANCYTOPENIA (6) CHF (congestive heart failure) Code(s): I50.9 - HEART FAILURE, UNSPECIFIED Qualifiers: Congestive heart failure type: unspecified congestive heart failure type Congestive heart failure chronicity: chronic Qualified Code(s): I50.9 - Heart failure, unspecified; I50.9 - Heart failure, unspecified; I50.9 - Heart failure, unspecified; I50.9 - Heart failure, unspecified (7) Hypothyroidism Code(s): E03.9 - HYPOTHYROIDISM, UNSPECIFIED (8) Paroxysmal SVT (supraventricular tachycardia) Code(s): I47.1 - SUPRAVENTRICULAR TACHYCARDIA (9) Shock Code(s): R57.9 - SHOCK, UNSPECIFIED Assessment/Plan D/C steroids HOB >30, oral care O2 as needed to maintain saturation ABX coverage per ID If she succumbs to another respiratory failure -> Will need Trach Floor Dr Melgar Critical care time spent in reviewing chart, evaluating patient and formulating plan - 40 minutes.
[2017-05-21 12:58] LABS: ANISOCYTOSIS 2+; MACROCYTOSIS 2+; MICROCYTOSIS 2+
--- NOTE | 2017-05-21 14:22 | PN ---
Physical Exam: SUBJECTIVE: Patient seen and examined at bedside. 24 hr events -extubated, central line out -otherwise, no acute events overnight Today -afebrile -on venti mask 40%, sat 100% -resting comfortably in bed -stable for transfer to med-surg. Order is in OBJECTIVE: Vital Signs Period Temp Pulse Resp BP Sys/Damon Pulse Ox Last 24 Hr 98.6 F-99.2 F 94-130 11-17 132-150/73-89 99-100 GENERAL: The patient is awake in no acute distress. resting comfortably. intermittent coughing HEAD: Normal with no signs of trauma. EYES: PERRL, extraocular movements intact, sclera anicteric, conjunctiva clear. NECK: Trachea midline, supple. LUNGS: Breath sounds equal, clear to auscultation bilaterally, no wheezes, no crackles, no accessory muscle use. HEART: Regular rate and rhythm, S1, S2 without murmur, rub or gallop. ABDOMEN: Soft, nontender, nondistended, normoactive bowel sounds, no guarding, no rebound, no hepatosplenomegaly, no masses. EXTREMITIES: 2+ posterior tibial pulses, warm, well-perfused, no edema. NEUROLOGICAL: difficult to assess d/t pt's dementia, but eyes open, blinks eyes to close stimuli Laboratory Results - last 24 hr 05/21/17 05/21/17 06:20 06:20 WBC 7.5 RBC 2.61 L Hgb 9.2 L D Hct 26.0 L D MCV 99.6 H MCH 35.2 H MCHC 35.4 RDW 21.5 H Plt Count 238 MPV 8.7 Anisocytosis 2+ Microcytosis 2+ Macrocytosis 2+ Rouleaux 2+ Sodium 138 Potassium 3.7 Chloride 103 Carbon Dioxide 22 Anion Gap 13 BUN 30 H Creatinine 0.8 Random Glucose 130 H D Calcium 7.4 L Active Medications Generic Name Dose Route Start Last Admin Trade Name Freq PRN Reason Stop Dose Admin Chlorhexidine Gluconate 1 applic 05/13/17 22:00 05/20/17 21:50 Hibiclens For Decolonization - TP 1 applic HS [facility] Administration Enoxaparin Sodium 30 mg 05/12/17 13:00 05/21/17 10:37 Lovenox - SQ 30 mg DAILY [facility] Administration Hydrocortisone Sodium Succinate 25 mg 05/19/17 18:00 05/21/17 10:37 Solu-Cortef - IVPUSH 25 mg Q8H-IV [facility] Administration Linezolid 600 mg/ 300 mls @ 300 mls/hr 05/15/17 20:00 05/21/17 09:00 Miscellaneous IVPB 300 mls/hr Q12H [facility] Administration Protocol Trimethoprim/Sulfamethoxazole 256.25 mls @ 256.25 mls/hr 05/15/17 16:00 10:36 100 mg/ Dextrose IVPB 256.25 mls/hr Q8H-IV [facility] Administration Levothyroxine Sodium 44 mcg 05/12/17 07:00 05/21/17 06:07 Synthroid Injection - IVPUSH 44 mcg DAILY@0700 [facility] Administration Nystatin 1 applic 05/12/17 10:00 05/21/17 10:37 Mycostatin Cream - TP 1 applic BID [facility] Administration Pantoprazole Sodium 40 mg 05/12/17 10:00 05/21/17 10:37 Protonix 40mg Ivpb (Pre-Docked) IVPB 40 mg DAILY [facility] Administration ASSESSMENT/PLAN: This is an 82 y/o F with hx of CAD s/p stent, suspected COPD, dementia, hypothyroidism, who presented with altered mentation and failure to thrive and recent diagnosis of dysphagia and UTI. She was transferred to the ICU s/p rapid response secondary to acute hypoxic respiratory failure and aspiration, septic shock, SVT. #PULMONARY Acute hypoxic respiratory failure secondary to aspiration pneumonia -extubated, on venti mask 40%, sat 100% -if unsuccessful on venti mask- may need trach -central line has been removed (05/20) #NEURO -as per son, mother is at baseline mentation- has had worsening dementia over past yr. Before her deterioration, states that he took care of his mother's ADL' s at her home. Mentioned that she is hard of hearing, but does not use hearing aids. #ID sepsis secondary to HCAP vs. UTI -afebrile, without leukocytosis -Solucortef has been decreased to 25mg IVP q8h (from 50), will continue to wean -Trend lactic acid -Continue abx, on Bactrim for streno. maltophia and linezolid for VRE,MRSA (Day 7) -as per ID, vanco level <15, 1g vanco given (05/18) #GI -on contact precautions for MRSA, VRE, streno. maltophia -PEG has been completed by IR (05/19) #Renal TAMIE secondary to septic shock -strict I's and O's -BUN/Cr elevated- 30/0.8 (improved from yesterday) -will follow UO #Heme/onc hx Pancytopenia -Heme on board -most likely 2/2 oncologic process -Will follow CBC #Palliative -Spoke to son on phone, stated that he wants mother full code, continued on vent. Said he is unable to come in for a family discussion since he lives far away in [place] #Lines -L IJ central line removed -Ebony has been d/c #F/E/N -Will follow electrolytes -Osmolite 1.2 tube feeds Disposition -stable for transfer to med-surg -May need trach if fails on venti mask Visit type - Emergency Visit Emergency Visit: No - New Patient This patient is new to me today: No - Critical Care Critical Care patient: Yes Total Critical Care Time (in minutes): 40 Critical Care Statement: The care of this patient involved high complexity decision making to prevent further life threatening deterioration of the patient 's condition and/or to evaluate & treat vital organ system(s) failure or risk of failure.
--- NOTE | 2017-05-21 16:39 | PN ---
Progress Note, Physician Chief Complaint: Unable to obtain - Current Medication List Current Medications: Active Medications Chlorhexidine Gluconate (Hibiclens For Decolonization -) 1 applic TP HS [facility] Last Admin: 05/20/17 21:50 Dose: 1 applic Enoxaparin Sodium (Lovenox -) 30 mg SQ DAILY [facility] Last Admin: 05/21/17 10:37 Dose: 30 mg Hydrocortisone Sodium Succinate (Solu-Cortef -) 25 mg IVPUSH Q8H-IV [facility] Last Admin: 05/21/17 10:37 Dose: 25 mg Linezolid 600 mg/ (Miscellaneous) 300 mls @ 300 mls/hr IVPB Q12H [facility] PRN Reason: Protocol Last Admin: 05/21/17 09:00 Dose: 300 mls/hr Trimethoprim/Sulfamethoxazole (100 mg/ Dextrose) 256.25 mls @ 256.25 mls/hr IVPB Q8H-IV [facility] Last Admin: 05/21/17 10:36 Dose: 256.25 mls/hr Levothyroxine Sodium (Synthroid Injection -) 44 mcg IVPUSH DAILY@0700 [facility] Last Admin: 05/21/17 06:07 Dose: 44 mcg Nystatin (Mycostatin Cream -) 1 applic TP BID [facility] Last Admin: 05/21/17 10:37 Dose: 1 applic Pantoprazole Sodium (Protonix 40mg Ivpb (Pre-Docked)) 40 mg IVPB DAILY [facility] Last Admin: 05/21/17 10:37 Dose: 40 mg - Objective Vital Signs: Vital Signs Temperature 36.3 C L 05/21/17 14:00 Pulse Rate 94 H 05/21/17 14:00 Respiratory Rate 14 05/21/17 14:00 Blood Pressure 137/72 05/21/17 14:00 O2 Sat by Pulse Oximetry (%) 99 05/21/17 13:05 Constitutional: Yes: Other (lethargic, opens eyes to voice) Cardiovascular: Yes: Regular Rate and Rhythm. No: Gallop, Murmur, Rub Respiratory: Yes: Regular, On Nasal O2, Rhonchi. No: CTA Bilaterally, Rales, Tachypnea, Wheezes Gastrointestinal: Yes: Normal Bowel Sounds, Soft. No: Distention, Tenderness Extremities: Yes: WNL Edema: No Labs: CBC, BMP 05/21/17 06:20 05/21/17 06:20 INR, PTT INR 1.11 (0.82-1.09) 05/12/17 01:35 Problem List - Problems (1) UTI (urinary tract infection) Code(s): N39.0 - URINARY TRACT INFECTION, SITE NOT SPECIFIED (2) Dementia Code(s): F03.90 - UNSPECIFIED DEMENTIA WITHOUT BEHAVIORAL DISTURBANCE (3) Pancytopenia Code(s): D61.818 - OTHER PANCYTOPENIA (4) CHF (congestive heart failure) Code(s): I50.9 - HEART FAILURE, UNSPECIFIED Qualifiers: Qualified Code(s): I50.9 - Heart failure, unspecified; I50.9 - Heart failure, unspecified; I50.9 - Heart failure, unspecified; I50.9 - Heart failure , unspecified (5) HTN (hypertension) Code(s): I10 - ESSENTIAL (PRIMARY) HYPERTENSION (6) Hypothyroidism Code(s): E03.9 - HYPOTHYROIDISM, UNSPECIFIED (7) Aspiration pneumonia Code(s): J69.0 - PNEUMONITIS DUE TO INHALATION OF FOOD AND VOMIT (8) Anemia Code(s): D64.9 - ANEMIA, UNSPECIFIED Qualifiers: Qualified Code(s): D62 - Acute posthemorrhagic anemia; D62 - Acute posthemorrhagic anemia (9) Septic shock Code(s): A41.9 - SEPSIS, UNSPECIFIED ORGANISM R65.21 - SEVERE SEPSIS WITH SEPTIC SHOCK (10) Acute respiratory failure Code(s): J96.00 - ACUTE RESPIRATORY FAILURE, UNSP W HYPOXIA OR HYPERCAPNIA Assessment/Plan (1) Pneumonia Assessment/Plan: -ID following and appreciate assistance -growing stenotrophomonas -continue IV bactrim per ID Code(s): N39.0 - URINARY TRACT INFECTION, SITE NOT SPECIFIED (2) Elevated troponins Assessment/Plan: -stress induced -cardiology monitoring (3) Septic shock Assessment/Plan: -resolved -continue IV antibiotics per ID (4) CHF (congestive heart failure) Assessment/Plan: -ECHO reviewed Code(s): I50.9 - HEART FAILURE, UNSPECIFIED Qualifiers: Congestive heart failure type: unspecified congestive heart failure type Congestive heart failure chronicity: chronic Qualified Code(s): I50.9 - Heart failure, unspecified (5) HTN (hypertension) Assessment/Plan: -off pressors -monitor, not requiring antihypertensives at this time Code(s): I10 - ESSENTIAL (PRIMARY) HYPERTENSION (6) Hypothyroidism Assessment/Plan: -continue IV synthroid Code(s): E03.9 - HYPOTHYROIDISM, UNSPECIFIED (7) Respiratory failure -on nasal cannula -monitor in ICU, may need reintubation (8) Dementia -present and chronic (9) UTI -growing VRE -on linezolid per ID (10) FTT -PEG tube placed -tube feeds started 34 minutes spent in critical care time
[2017-05-21] MEDS ORDERED: POTASSIUM CHLORIDE 20 MEQ PREMIX IVPB 100 ML IVPB ONE (17:08)
--- NOTE | 2017-05-21 18:48 | PN ---
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 Patient is poor historian so her son at bedside was complementing the interview. According to him she has fallen 5 times in the last 3-4 months despite her use of a walker. She hit her head two weeks prior during one of the falls but did not seek attention. She did not lose consciousness during that fall. She describes the falls as "my legs giving out" which is corroborated by her son who witnessed one of the events. The son claims that she also has had difficulty keep track of time and with short term memory. Her memory issues are worsened at night. She lives at home alone and has had trouble with her ADLs. She is not on blood thinners. She has also had decreased food intake over the past few months although she has only lost a few pounds. She was seen by her PCP Dr. Mitchell earlier today and then sent to the ED for admission for altered mental status. Denies fevers, chills, nausea, vomiting, diarrhea, constipation, urinary symptoms, visual changes, headaches, presyncopal sensation, or palpitations. Her PCP is Dr. Mitchell. - Current Medication List Current Medications: Active Medications Chlorhexidine Gluconate (Hibiclens For Decolonization -) 1 applic TP HS [facility] Enoxaparin Sodium (Lovenox -) 30 mg SQ DAILY [facility] Hydrocortisone Sodium Succinate (Solu-Cortef -) 25 mg IVPUSH Q8H-IV [facility] Last Admin: 05/21/17 17:41 Dose: 25 mg Trimethoprim/Sulfamethoxazole (100 mg/ Dextrose) 256.25 mls @ 256.25 mls/hr IVPB Q8H-IV [facility] Last Admin: 05/21/17 17:42 Dose: 256.25 mls/hr Linezolid (Zyvox 600 Mg Premix Bag (Restricted To Id) -) 300 mls @ 300 mls/hr IVPB BID [facility] PRN Reason: Protocol Levothyroxine Sodium (Synthroid Injection -) 44 mcg IVPUSH DAILY@0700 [facility] Nystatin (Mycostatin Cream -) 1 applic TP BID [facility] Pantoprazole Sodium (Protonix Iv) 40 mg IVPUSH DAILY [facility] - Objective Vital Signs: Vital Signs Temperature 97.4 F L 05/21/17 16:00 Pulse Rate 102 H 05/21/17 16:00 Respiratory Rate 15 05/21/17 16:00 Blood Pressure 121/62 05/21/17 16:00 O2 Sat by Pulse Oximetry (%) 99 05/21/17 13:05 Constitutional: Yes: Thin Eyes: Yes: WNL Cardiovascular: Yes: Regular Rate and Rhythm Respiratory: Yes: Diminished Gastrointestinal: Yes: Soft ...Rectal Exam: Yes: Deferred Genitourinary: No: Anuria Musculoskeletal: Yes: Muscle Weakness Extremities: Yes: Cool Edema: No Peripheral Pulses WNL: No Peripheral Pulses: Left Doralis Pedis: 1+, Right Dorsalis Pedis: 1+ Psychiatric: Yes: Other (dementia) Labs: CBC, BMP 05/21/17 06:20 05/21/17 06:20 INR, PTT INR 1.11 (0.82-1.09) 05/12/17 01:35 - ....Imaging Other: Image Reviewed (telemetry: NSR) Problem List - Problems (1) Acute respiratory failure with hypoxia and hypercapnia Assessment/Plan: Now extubated. Maintain hydration. For transfer to floor. F/u neurological w/u. Code(s): J96.01 - ACUTE RESPIRATORY FAILURE WITH HYPOXIA J96.02 - ACUTE RESPIRATORY FAILURE WITH HYPERCAPNIA (2) Altered mental status, unspecified Code(s): R41.82 - ALTERED MENTAL STATUS, UNSPECIFIED (3) Anemia Code(s): D64.9 - ANEMIA, UNSPECIFIED Qualifiers: Qualified Code(s): D62 - Acute posthemorrhagic anemia; D62 - Acute posthemorrhagic anemia (4) Aspiration pneumonia Code(s): J69.0 - PNEUMONITIS DUE TO INHALATION OF FOOD AND VOMIT (5) Dementia Code(s): F03.90 - UNSPECIFIED DEMENTIA WITHOUT BEHAVIORAL DISTURBANCE (6) Fever Code(s): R50.9 - FEVER, UNSPECIFIED (7) Pancytopenia Code(s): D61.818 - OTHER PANCYTOPENIA (8) Shock Assessment/Plan: Off pressors. Mild systolic dysfunction. Continue fluids. Code(s): R57.9 - SHOCK, UNSPECIFIED (9) HTN (hypertension) Code(s): I10 - ESSENTIAL (PRIMARY) HYPERTENSION (10) Hypothyroidism Assessment/Plan: On Synthroid. TSH low; free T4 mildly elevated. Code(s): E03.9 - HYPOTHYROIDISM, UNSPECIFIED (11) Osteoporosis Code(s): M81.0 - AGE-RELATED OSTEOPOROSIS W/O CURRENT PATHOLOGICAL FRACTURE (12) Smoking Code(s): F17.200 - NICOTINE DEPENDENCE, UNSPECIFIED, UNCOMPLICATED (13) Acute on chronic systolic (congestive) heart failure Code(s): I50.23 - ACUTE ON CHRONIC SYSTOLIC (CONGESTIVE) HEART FAILURE (14) Sinus tachycardia Code(s): R00.0 - TACHYCARDIA, UNSPECIFIED (15) Hypomagnesemia Code(s): E83.42 - HYPOMAGNESEMIA (16) Hypokalemia Code(s): E87.6 - HYPOKALEMIA (17) Hypophosphatemia Code(s): E83.39 - OTHER DISORDERS OF PHOSPHORUS METABOLISM
--- NOTE | 2017-05-21 18:49 | PN ---
Progress Note (short form) - Note Progress Note: NEUROLOGY FOLLOW-UP: Now extubated and breathing RA, spontanously. Off propofol/sedatives. Awake, staring. Follows no commands. Blinks to threat all guzman. Full EOM's to Doll's head. Corneals sluggish but present. Flaccid tone. Withdraws all 4's to distal pinch but no apparent antigravity strength. Areflexic. IMP: Severe, B/L, cerebral dysfunction (OMS, Chronic). Non-focal exam. 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 SUGGEST: Bedside PT Check B12, TSH, CK Nutritional support with high protein feeds. Thank you very much, Hugo Adams MD
[2017-05-21] MEDS: LINEZOLID 600 MG PREMIX BAG 300 ML IVPB SCH (21:15)
[2017-05-21] MEDS: CHLORHEXIDINE GLUCONATE 4% CLEANSER FOR DECOLONIZATION TP SCH (21:15)
--- NOTE | 2017-05-21 22:42 | PN ---
Progress Note, Physician Chief Complaint: Pt intubated; eyes open.No obvious response - Current Medication List Current Medications: Active Medications Chlorhexidine Gluconate (Hibiclens For Decolonization -) 1 applic TP HS [facility] Last Admin: 05/21/17 21:15 Dose: Not Given Enoxaparin Sodium (Lovenox -) 30 mg SQ DAILY [facility] Hydrocortisone Sodium Succinate (Solu-Cortef -) 25 mg IVPUSH Q8H-IV [facility] Last Admin: 05/21/17 17:41 Dose: 25 mg Trimethoprim/Sulfamethoxazole (100 mg/ Dextrose) 256.25 mls @ 256.25 mls/hr IVPB Q8H-IV [facility] Last Admin: 05/21/17 17:42 Dose: 256.25 mls/hr Linezolid (Zyvox 600 Mg Premix Bag (Restricted To Id) -) 300 mls @ 300 mls/hr IVPB BID [facility] PRN Reason: Protocol Last Admin: 05/21/17 21:15 Dose: 300 mls/hr Levothyroxine Sodium (Synthroid Injection -) 44 mcg IVPUSH DAILY@0700 [facility] Nystatin (Mycostatin Cream -) 1 applic TP BID [facility] Last Admin: 05/21/17 21:14 Dose: 1 applic Pantoprazole Sodium (Protonix Iv) 40 mg IVPUSH DAILY [facility] - Objective Vital Signs: Vital Signs Temperature 98.4 F 05/21/17 22:00 Pulse Rate 99 H 05/21/17 22:00 Respiratory Rate 18 05/21/17 22:00 Blood Pressure 146/79 05/21/17 22:00 O2 Sat by Pulse Oximetry (%) 97 05/21/17 21:00 Constitutional: Yes: Thin Eyes: Yes: WNL HENT: Yes: Other (intubated) Neck: Yes: Decreased ROM, Other (intubated) Cardiovascular: Yes: S1, S2 Respiratory: Yes: Diminished Gastrointestinal: Yes: Soft, Other (gastrostomy tube) Genitourinary: No: Anuria Musculoskeletal: Yes: Muscle Weakness Extremities: Yes: Cool Edema: No Peripheral Pulses WNL: No Peripheral Pulses: Left Doralis Pedis: 1+, Right Dorsalis Pedis: 1+ Integumentary: Yes: WNL Neurological: Yes: Unresponsive, Weakness Labs: CBC, BMP 05/21/17 06:20 05/21/17 06:20 INR, PTT INR 1.11 (0.82-1.09) 05/12/17 01:35 Problem List - Problems (1) Acute respiratory failure with hypoxia and hypercapnia Assessment/Plan: For possible extubation per case making machine operator. ?anoxic encephalopathy Code(s): J96.01 - ACUTE RESPIRATORY FAILURE WITH HYPOXIA J96.02 - ACUTE RESPIRATORY FAILURE WITH HYPERCAPNIA (2) Anemia Code(s): D64.9 - ANEMIA, UNSPECIFIED Qualifiers: Qualified Code(s): D62 - Acute posthemorrhagic anemia; D62 - Acute posthemorrhagic anemia (3) Aspiration pneumonia Code(s): J69.0 - PNEUMONITIS DUE TO INHALATION OF FOOD AND VOMIT (4) Dementia Code(s): F03.90 - UNSPECIFIED DEMENTIA WITHOUT BEHAVIORAL DISTURBANCE (5) Fever Code(s): R50.9 - FEVER, UNSPECIFIED (6) Pancytopenia Assessment/Plan: WBCs no longer leukopenic. Anemic; Platelets WNL. f/u with plumbing service technician. Code(s): D61.818 - OTHER PANCYTOPENIA (7) Shock Assessment/Plan: Off pressors. Mild systolic dysfunction. Continue fluids. Code(s): R57.9 - SHOCK, UNSPECIFIED (8) HTN (hypertension) Code(s): I10 - ESSENTIAL (PRIMARY) HYPERTENSION (9) Hypothyroidism Assessment/Plan: On Synthroid. TSH low; free T4 mildly elevated. Code(s): E03.9 - HYPOTHYROIDISM, UNSPECIFIED (10) Osteoporosis Code(s): M81.0 - AGE-RELATED OSTEOPOROSIS W/O CURRENT PATHOLOGICAL FRACTURE (11) Smoking Code(s): F17.200 - NICOTINE DEPENDENCE, UNSPECIFIED, UNCOMPLICATED (12) Acute on chronic systolic (congestive) heart failure Code(s): I50.23 - ACUTE ON CHRONIC SYSTOLIC (CONGESTIVE) HEART FAILURE (13) Sinus tachycardia Code(s): R00.0 - TACHYCARDIA, UNSPECIFIED (14) Hypomagnesemia Code(s): E83.42 - HYPOMAGNESEMIA (15) Hypokalemia Code(s): E87.6 - HYPOKALEMIA (16) Hypophosphatemia Code(s): E83.39 - OTHER DISORDERS OF PHOSPHORUS METABOLISM
[2017-05-22] MEDS: TRIMETHOPRIM IVPB SCH ×3 (01:54→18:22)
[2017-05-22] MEDS: WATER IVPB SCH ×3 (01:54→18:22)
[2017-05-22] MEDS: HYDROCORTISONE SOD SUCCINATE 100 MG/2 ML VIAL IVPUSH SCH ×3 (01:54→17:34)
[2017-05-22] MEDS: SULFAMETHOXAZOLE IVPB SCH ×3 (01:54→18:22)
[2017-05-22] MEDS: DEXTROSE 5% IVPB SCH ×3 (01:54→18:22)
[2017-05-22] MEDS: LEVOTHYROXINE SODIUM 100 MCG VIAL IVPUSH SCH (06:40)
[2017-05-22 07:45] LABS: BASOPHIL 1.1 % (0-2.0); EOSINOPHIL 0.1 % (0-4.5); MCH 35.4 pg (25.7-33.7); MCHC 35.4 g/dl (32.0-36.0); MEAN CELL VOLUME 100.1 fl (80-96); MEAN PLT VOLUME 8.7 fl (7.5-11.1); NEUTROPHILS 88.4 % (42.8-82.8); PLATELET COUNT 263 K/MM3 (134-434); RDW 21.9 % (11.6-15.6)
[2017-05-22 08:09] LABS: ANION GAP 13 (8-16); CALCIUM 7.6 mg/dL (8.5-10.1); CO2 23 mmol/L (21-32); CREATININE 0.8 mg/dL (0.55-1.02); GLUCOSE,RANDOM 164 mg/dL (74-106)
--- NOTE | 2017-05-22 09:16 | PN ---
Progress Note, Physician History of Present Illness: This is a 82 yo woman PMH: dementia, hypothyroid, HTN, active tobacco, CAD s/p sent, CHF presenting to ICU after HOG COOLER for hypoxic respiratory failure, SVT (HR 180s) and shock. Briefly, patient initially presented for frequent falls and altered mental status with overall physical and cognitive decline over the last 6 months prior to admission. CT head: w/ central atrophy and mild microvascular ischemic gliosis. Labs significant for hypothyroid, leukopenia and pyuria, she was started on ceftriaxone. Neurology was consulted. Endocrine consulted. Mental status had some improvement while on the floor. Speech and swallow eval done c/ f aspiration. ABX were switch to zosyn given increased secretions and c/f pneumonia. Plans made for potential PEG placement. Patient continued to have waxing and waning mental status. Patient had notable right facial droop and NCHCT done w/o acute pathology. She completed a course of ABX. GI was consulted for c/f GIB. Heme also consulted given anemia and leukopenia and w/u sent: flow- -0.2% blasts, clonal B cells questionable nonspecific immunophenotype. On day of ICU admission patient had witnessed aspiration event. HOG COOLER was called in PM for hypoxia and tachycardia. Patient transferred to ICU for hypoxic respiratory failure. Patient intubated. ABG 7.3/54/242 (ACVC: 20/400/100 +5). Patient given adenosine for SVT w/ underlying sinus rhythm. Patient continued to have RVR and was given lopressor 5mg x1 w/ HR improved to 120s. Family called but were unavailable. - History Source - Current Medication List Current Medications: Active Medications Chlorhexidine Gluconate (Hibiclens For Decolonization -) 1 applic TP HS [facility] Last Admin: 05/21/17 21:15 Dose: Not Given Enoxaparin Sodium (Lovenox -) 30 mg SQ DAILY [facility] Hydrocortisone Sodium Succinate (Solu-Cortef -) 25 mg IVPUSH Q8H-IV [facility] Last Admin: 05/22/17 01:54 Dose: 25 mg Trimethoprim/Sulfamethoxazole (100 mg/ Dextrose) 256.25 mls @ 256.25 mls/hr IVPB Q8H-IV [facility] Last Admin: 05/22/17 01:54 Dose: 256.25 mls/hr Linezolid (Zyvox 600 Mg Premix Bag (Restricted To Id) -) 300 mls @ 300 mls/hr IVPB BID [facility] PRN Reason: Protocol Last Admin: 05/21/17 21:15 Dose: 300 mls/hr Levothyroxine Sodium (Synthroid Injection -) 44 mcg IVPUSH DAILY@0700 [facility] Last Admin: 05/22/17 06:40 Dose: 44 mcg Nystatin (Mycostatin Cream -) 1 applic TP BID [facility] Last Admin: 05/21/17 21:14 Dose: 1 applic Pantoprazole Sodium (Protonix Iv) 40 mg IVPUSH DAILY [facility] - Objective Vital Signs: Vital Signs Temperature 97.8 F 05/22/17 06:00 Pulse Rate 103 H 05/22/17 06:00 Respiratory Rate 18 05/22/17 06:00 Blood Pressure 140/82 05/22/17 06:00 O2 Sat by Pulse Oximetry (%) 97 05/21/17 21:00 Eyes: Yes: WNL, Conjunctiva Clear, EOM Intact HENT: Yes: WNL, Atraumatic, Normocephalic Neck: Yes: WNL, Supple, Trachea Midline Cardiovascular: Yes: WNL, Regular Rate and Rhythm Respiratory: Yes: WNL, Regular, CTA Bilaterally Gastrointestinal: Yes: WNL, Normal Bowel Sounds Genitourinary: Yes: WNL Musculoskeletal: Yes: WNL Extremities: Yes: WNL Edema: No Integumentary: Yes: WNL Neurological: Yes: WNL, Alert, Oriented ...Motor Strength: WNL Psychiatric: Yes: WNL Labs: CBC, BMP 05/22/17 06:00 05/22/17 06:00 INR, PTT INR 1.11 (0.82-1.09) 05/12/17 01:35 Problem List - Problems (1) Acute respiratory failure with hypoxia and hypercapnia Code(s): J96.01 - ACUTE RESPIRATORY FAILURE WITH HYPOXIA J96.02 - ACUTE RESPIRATORY FAILURE WITH HYPERCAPNIA (2) Altered mental status, unspecified Code(s): R41.82 - ALTERED MENTAL STATUS, UNSPECIFIED (3) Anemia Code(s): D64.9 - ANEMIA, UNSPECIFIED Qualifiers: Qualified Code(s): D62 - Acute posthemorrhagic anemia; D62 - Acute posthemorrhagic anemia (4) Aspiration pneumonia Code(s): J69.0 - PNEUMONITIS DUE TO INHALATION OF FOOD AND VOMIT (5) Dementia Code(s): F03.90 - UNSPECIFIED DEMENTIA WITHOUT BEHAVIORAL DISTURBANCE (6) Fever Code(s): R50.9 - FEVER, UNSPECIFIED (7) Pancytopenia Code(s): D61.818 - OTHER PANCYTOPENIA (8) Shock Code(s): R57.9 - SHOCK, UNSPECIFIED (9) UTI (urinary tract infection) Code(s): N39.0 - URINARY TRACT INFECTION, SITE NOT SPECIFIED (10) Aortic stenosis Code(s): I35.0 - NONRHEUMATIC AORTIC (VALVE) STENOSIS (11) CHF (congestive heart failure) Code(s): I50.9 - HEART FAILURE, UNSPECIFIED Qualifiers: Qualified Code(s): I50.9 - Heart failure, unspecified; I50.9 - Heart failure, unspecified; I50.9 - Heart failure, unspecified; I50.9 - Heart failure , unspecified (12) HTN (hypertension) Code(s): I10 - ESSENTIAL (PRIMARY) HYPERTENSION (13) Hypothyroidism Code(s): E03.9 - HYPOTHYROIDISM, UNSPECIFIED (14) Macrocytosis Code(s): D75.89 - OTHER SPECIFIED DISEASES OF BLOOD AND BLOOD-FORMING ORGANS (15) Osteoporosis Code(s): M81.0 - AGE-RELATED OSTEOPOROSIS W/O CURRENT PATHOLOGICAL FRACTURE (16) Paroxysmal SVT (supraventricular tachycardia) Code(s): I47.1 - SUPRAVENTRICULAR TACHYCARDIA (17) Smoking Code(s): F17.200 - NICOTINE DEPENDENCE, UNSPECIFIED, UNCOMPLICATED (18) Smoking addiction Code(s): F17.200 - NICOTINE DEPENDENCE, UNSPECIFIED, UNCOMPLICATED Assessment/Plan - Problems (1) Acute respiratory failure with hypoxia and hypercapnia Assessment/Plan: Now extubated. Maintain hydration. For transfer to floor. F/u neurological w/u. Code(s): J96.01 - ACUTE RESPIRATORY FAILURE WITH HYPOXIA J96.02 - ACUTE RESPIRATORY FAILURE WITH HYPERCAPNIA (2) Altered mental status, unspecified Code(s): R41.82 - ALTERED MENTAL STATUS, UNSPECIFIED (3) Anemia Code(s): D64.9 - ANEMIA, UNSPECIFIED Qualifiers: Qualified Code(s): D62 - Acute posthemorrhagic anemia; D62 - Acute posthemorrhagic anemia (4) Aspiration pneumonia Code(s): J69.0 - PNEUMONITIS DUE TO INHALATION OF FOOD AND VOMIT (5) Dementia Code(s): F03.90 - UNSPECIFIED DEMENTIA WITHOUT BEHAVIORAL DISTURBANCE (6) Fever Code(s): R50.9 - FEVER, UNSPECIFIED (7) Pancytopenia Code(s): D61.818 - OTHER PANCYTOPENIA (8) Shock Assessment/Plan: Off pressors. Mild systolic dysfunction. Continue fluids. Code(s): R57.9 - SHOCK, UNSPECIFIED (9) HTN (hypertension) Code(s): I10 - ESSENTIAL (PRIMARY) HYPERTENSION (10) Hypothyroidism Assessment/Plan: On Synthroid. TSH low; free T4 mildly elevated. Code(s): E03.9 - HYPOTHYROIDISM, UNSPECIFIED (11) Osteoporosis Code(s): M81.0 - AGE-RELATED OSTEOPOROSIS W/O CURRENT PATHOLOGICAL FRACTURE (12) Smoking Code(s): F17.200 - NICOTINE DEPENDENCE, UNSPECIFIED, UNCOMPLICATED (13) Acute on chronic systolic (congestive) heart failure Code(s): I50.23 - ACUTE ON CHRONIC SYSTOLIC (CONGESTIVE) HEART FAILURE (14) Sinus tachycardia Code(s): R00.0 - TACHYCARDIA, UNSPECIFIED (15) Hypomagnesemia Code(s): E83.42 - HYPOMAGNESEMIA (16) Hypokalemia Code(s): E87.6 - HYPOKALEMIA (17) Hypophosphatemia Code(s): E83.39 - OTHER DISORDERS OF PHOSPHORUS METABOLISM
[2017-05-22] MEDS ORDERED: PANTOPRAZOLE SODIUM 40 MG VIAL IVPUSH SCH (10:00)
[2017-05-22] MEDS: LINEZOLID 600 MG PREMIX BAG 300 ML IVPB SCH ×2 (10:06→22:33)
[2017-05-22] MEDS: NYSTATIN 100,000 UNIT/GM TOPICAL CREAM 15 GM TUBE TP SCH ×2 (10:13→22:33)
[2017-05-22] MEDS: PANTOPRAZOLE SODIUM 40 MG VIAL IVPUSH SCH (10:13)
[2017-05-22] MEDS: ENOXAPARIN NA (PORCINE) 30 MG/0.3 ML DISP.SYRIN SQ SCH (10:13)
--- NOTE | 2017-05-22 10:30 | PN ---
Progress Note (short form) - Note Progress Note: Lethargic but arousable. Not following commands Breathing is non-labored. No acute events overnight. Intake & Output 05/19/17 05/20/17 05/21/17 05/22/17 23:59 23:59 23:59 23:59 Intake Total 2044.4 965 1700 250 Output Total 2700 1500 800 600 Balance -655.6 -535 900 -350 Weight 120 lb 13.013 oz 119 lb 12.8 oz Last Vital Signs Temp Pulse Resp BP Pulse Ox 97.8 F 103 H 18 140/82 97 05/22/17 06:00 05/22/17 06:00 05/22/17 06:00 05/22/17 06:00 05/21/17 21:00 Active Medications Chlorhexidine Gluconate (Hibiclens For Decolonization -) 1 applic TP HS [facility] Last Admin: 05/21/17 21:15 Dose: Not Given Enoxaparin Sodium (Lovenox -) 30 mg SQ DAILY [facility] Last Admin: 05/22/17 10:13 Dose: 30 mg Hydrocortisone Sodium Succinate (Solu-Cortef -) 25 mg IVPUSH Q8H-IV [facility] Last Admin: 05/22/17 10:13 Dose: 25 mg Trimethoprim/Sulfamethoxazole (100 mg/ Dextrose) 256.25 mls @ 256.25 mls/hr IVPB Q8H-IV [facility] Last Admin: 05/22/17 01:54 Dose: 256.25 mls/hr Linezolid (Zyvox 600 Mg Premix Bag (Restricted To Id) -) 300 mls @ 300 mls/hr IVPB BID [facility] PRN Reason: Protocol Last Admin: 05/22/17 10:06 Dose: 300 mls/hr Levothyroxine Sodium (Synthroid Injection -) 44 mcg IVPUSH DAILY@0700 [facility] Last Admin: 05/22/17 06:40 Dose: 44 mcg Nystatin (Mycostatin Cream -) 1 applic TP BID [facility] Last Admin: 05/22/17 10:13 Dose: 1 applic Pantoprazole Sodium (Protonix Iv) 40 mg IVPUSH DAILY [facility] Last Admin: 05/22/17 10:13 Dose: 40 mg General: frail woman HEENT: anicteric, no JVD CV: S1, S2, RRR Pulm: Bilateral scattered rhonchi Abd: Soft, ND, (+) BS Ext: +2 pulses Neuro: Blinks to threat, non-focal Laboratory Results - last 24 hr 05/16/17 05/21/17 05/22/17 11:52 06:20 06:00 WBC 7.5 7.0 RBC 2.61 L 2.92 L Hgb 9.2 L D 10.3 L D Hct 26.0 L D 29.2 L MCV 99.6 H 100.1 H MCH 35.2 H 35.4 H MCHC 35.4 35.4 RDW 21.5 H 21.9 H Plt Count 238 263 MPV 8.7 8.7 Neutrophils % 88.4 H Lymphocytes % 7.8 L Monocytes % 2.6 L D Eosinophils % 0.1 Basophils % 1.1 Anisocytosis 2+ Microcytosis 2+ Macrocytosis 2+ Rouleaux 2+ Sodium Potassium Chloride Carbon Dioxide Anion Gap BUN Creatinine Random Glucose Calcium Blood Type A NEGATIVE Antibody Screen Negative 05/22/17 06:00 WBC RBC Hgb Hct MCV MCH MCHC RDW Plt Count MPV Neutrophils % Lymphocytes % Monocytes % Eosinophils % Basophils % Anisocytosis Microcytosis Macrocytosis Rouleaux Sodium 136 Potassium 3.5 Chloride 100 Carbon Dioxide 23 Anion Gap 13 BUN 28 H Creatinine 0.8 Random Glucose 164 H D Calcium 7.6 L Blood Type Antibody Screen Problem List - Problems (1) Altered mental status, unspecified Code(s): R41.82 - ALTERED MENTAL STATUS, UNSPECIFIED (2) Aspiration pneumonia Code(s): J69.0 - PNEUMONITIS DUE TO INHALATION OF FOOD AND VOMIT (3) Dementia Code(s): F03.90 - UNSPECIFIED DEMENTIA WITHOUT BEHAVIORAL DISTURBANCE (4) Acute respiratory failure with hypoxia and hypercapnia Code(s): J96.01 - ACUTE RESPIRATORY FAILURE WITH HYPOXIA J96.02 - ACUTE RESPIRATORY FAILURE WITH HYPERCAPNIA (5) Pancytopenia Code(s): D61.818 - OTHER PANCYTOPENIA (6) CHF (congestive heart failure) Code(s): I50.9 - HEART FAILURE, UNSPECIFIED Qualifiers: Congestive heart failure type: unspecified congestive heart failure type Congestive heart failure chronicity: chronic Qualified Code(s): I50.9 - Heart failure, unspecified; I50.9 - Heart failure, unspecified; I50.9 - Heart failure, unspecified; I50.9 - Heart failure, unspecified (7) Hypothyroidism Code(s): E03.9 - HYPOTHYROIDISM, UNSPECIFIED (8) Paroxysmal SVT (supraventricular tachycardia) Code(s): I47.1 - SUPRAVENTRICULAR TACHYCARDIA (9) Shock Code(s): R57.9 - SHOCK, UNSPECIFIED Assessment/Plan HOB >30, oral care O2 as needed to maintain saturation ABX coverage per ID If she succumbs to another respiratory failure -> Will need Trach Dr Melgar
--- NOTE | 2017-05-22 11:04 | PN ---
Progress Note, Physician History of Present Illness: Patient awake, breathing appearing non-labored. Remains non-verbal, does not follow commands. - Current Medication List Current Medications: Active Medications Chlorhexidine Gluconate (Hibiclens For Decolonization -) 1 applic TP HS [facility] Last Admin: 05/21/17 21:15 Dose: Not Given Enoxaparin Sodium (Lovenox -) 30 mg SQ DAILY [facility] Last Admin: 05/22/17 10:13 Dose: 30 mg Hydrocortisone Sodium Succinate (Solu-Cortef -) 25 mg IVPUSH Q8H-IV [facility] Last Admin: 05/22/17 10:13 Dose: 25 mg Trimethoprim/Sulfamethoxazole (100 mg/ Dextrose) 256.25 mls @ 256.25 mls/hr IVPB Q8H-IV [facility] Last Admin: 05/22/17 01:54 Dose: 256.25 mls/hr Linezolid (Zyvox 600 Mg Premix Bag (Restricted To Id) -) 300 mls @ 300 mls/hr IVPB BID [facility] PRN Reason: Protocol Last Admin: 05/22/17 10:06 Dose: 300 mls/hr Levothyroxine Sodium (Synthroid Injection -) 44 mcg IVPUSH DAILY@0700 [facility] Last Admin: 05/22/17 06:40 Dose: 44 mcg Nystatin (Mycostatin Cream -) 1 applic TP BID [facility] Last Admin: 05/22/17 10:13 Dose: 1 applic Pantoprazole Sodium (Protonix Iv) 40 mg IVPUSH DAILY [facility] Last Admin: 05/22/17 10:13 Dose: 40 mg - Objective Vital Signs: Vital Signs Temperature 97.8 F 05/22/17 06:00 Pulse Rate 103 H 05/22/17 06:00 Respiratory Rate 18 05/22/17 06:00 Blood Pressure 140/82 05/22/17 06:00 O2 Sat by Pulse Oximetry (%) 97 05/21/17 21:00 Constitutional: Yes: No Distress, Calm HENT: Yes: Atraumatic, Normocephalic Neck: Yes: Supple, Trachea Midline Cardiovascular: Yes: Regular Rate and Rhythm, S1, S2. No: Murmur Respiratory: Yes: Regular, Diminished (bilaterally) Gastrointestinal: Yes: Normal Bowel Sounds, Soft, Other (G-tube present) Edema: Yes Edema: LUE: Trace, RUE: Trace, LLE: Trace, RLE: Trace Neurological: Yes: Other (non-verbal) Labs: CBC, BMP 05/22/17 06:00 05/22/17 06:00 INR, PTT INR 1.11 (0.82-1.09) 05/12/17 01:35 Assessment/Plan Current Active Problems Acute on chronic systolic (congestive) heart failure (Acute) Acute respiratory failure (Acute) Acute respiratory failure with hypoxia and hypercapnia (Acute) Altered mental status, unspecified (Acute) Anemia (Acute) Aspiration pneumonia (Acute) Dementia (Acute) Fever (Acute) Hypokalemia (Acute) Hypomagnesemia (Acute) Hypophosphatemia (Acute) Pancytopenia (Acute) Septic shock (Acute) Shock (Acute) Sinus tachycardia (Acute) -observe respiratory status s/p intubation -on abx for pneumonia -tube feeds started
--- NOTE | 2017-05-22 16:13 | PN ---
Progress Note, Physician History of Present Illness: Pt seen and examined. Events noted, medical records reviewed. Pt is afebrile, nonverbal. No distress noted. - Current Medication List Current Medications: Active Medications Chlorhexidine Gluconate (Hibiclens For Decolonization -) 1 applic TP HS [facility] Last Admin: 05/21/17 21:15 Dose: Not Given Enoxaparin Sodium (Lovenox -) 30 mg SQ DAILY [facility] Last Admin: 05/22/17 10:13 Dose: 30 mg Hydrocortisone Sodium Succinate (Solu-Cortef -) 25 mg IVPUSH Q8H-IV [facility] Last Admin: 05/22/17 10:13 Dose: 25 mg Trimethoprim/Sulfamethoxazole (100 mg/ Dextrose) 256.25 mls @ 256.25 mls/hr IVPB Q8H-IV [facility] Last Admin: 05/22/17 11:00 Dose: 256.25 mls/hr Linezolid (Zyvox 600 Mg Premix Bag (Restricted To Id) -) 300 mls @ 300 mls/hr IVPB BID [facility] PRN Reason: Protocol Last Admin: 05/22/17 10:06 Dose: 300 mls/hr Levothyroxine Sodium (Synthroid Injection -) 44 mcg IVPUSH DAILY@0700 [facility] Last Admin: 05/22/17 06:40 Dose: 44 mcg Nystatin (Mycostatin Cream -) 1 applic TP BID [facility] Last Admin: 05/22/17 10:13 Dose: 1 applic Pantoprazole Sodium (Protonix Iv) 40 mg IVPUSH DAILY [facility] Last Admin: 05/22/17 10:13 Dose: 40 mg - Objective Vital Signs: Vital Signs Temperature 97.3 F L 05/22/17 13:51 Pulse Rate 74 05/22/17 13:51 Respiratory Rate 18 05/22/17 13:51 Blood Pressure 165/77 05/22/17 13:51 O2 Sat by Pulse Oximetry (%) 97 05/21/17 21:00 Constitutional: Yes: No Distress Cardiovascular: Yes: Regular Rate and Rhythm Respiratory: Yes: Regular, Diminished (slightly diminished, poor inspiratory effort) Gastrointestinal: Yes: Normal Bowel Sounds, Soft Extremities: Yes: WNL Labs: CBC, BMP 05/22/17 06:00 05/22/17 06:00 INR, PTT INR 1.11 (0.82-1.09) 05/12/17 01:35 Problem List - Problems (1) Pancytopenia Code(s): D61.818 - OTHER PANCYTOPENIA (2) Fever Code(s): R50.9 - FEVER, UNSPECIFIED (3) Altered mental status, unspecified Code(s): R41.82 - ALTERED MENTAL STATUS, UNSPECIFIED (4) Aspiration pneumonia Code(s): J69.0 - PNEUMONITIS DUE TO INHALATION OF FOOD AND VOMIT (5) CHF (congestive heart failure) Code(s): I50.9 - HEART FAILURE, UNSPECIFIED Qualifiers: Qualified Code(s): I50.9 - Heart failure, unspecified; I50.9 - Heart failure, unspecified; I50.9 - Heart failure, unspecified; I50.9 - Heart failure , unspecified Assessment/Plan Acute respiratory failure s/p extubation - pt clinically appears stable - continue Bactrim and Linezolid for now continue monitor
[2017-05-22] MEDS ORDERED: PT OWN MED DRAWER 7, Y5N ONE ×2 (17:51→21:16)
[2017-05-22] MEDS: CHLORHEXIDINE GLUCONATE 4% CLEANSER FOR DECOLONIZATION TP SCH (22:30)
[2017-05-23] MEDS: HYDROCORTISONE SOD SUCCINATE 100 MG/2 ML VIAL IVPUSH SCH ×3 (01:32→18:00)
[2017-05-23] MEDS: SULFAMETHOXAZOLE IVPB SCH ×3 (02:11→19:04)
[2017-05-23] MEDS: TRIMETHOPRIM IVPB SCH ×3 (02:11→19:04)
[2017-05-23] MEDS: DEXTROSE 5% IVPB SCH ×3 (02:11→19:04)
[2017-05-23] MEDS: WATER IVPB SCH ×3 (02:11→19:04)
[2017-05-23] MEDS: LEVOTHYROXINE SODIUM 100 MCG VIAL IVPUSH SCH (06:15)
[2017-05-23 08:19] LABS: BASOPHIL 0.6 % (0-2.0); EOSINOPHIL 0.1 % (0-4.5); MCH 34.8 pg (25.7-33.7); MEAN CELL VOLUME 99.6 fl (80-96); MEAN PLT VOLUME 9.1 fl (7.5-11.1); NEUTROPHILS 87.2 % (42.8-82.8); PLATELET COUNT 184 K/MM3 (134-434); WHITE BLOOD COUNT 7.7 K/mm3 (4.0-10.0)
[2017-05-23 08:43] LABS: ALBUMIN 1.8 g/dl (3.4-5.0); ALK PHOS 220 U/L (45-117); ANION GAP 9 (8-16); BILIRUBIN,TOTAL 0.6 mg/dL (0.2-1.0); CALCIUM 7.1 mg/dL (8.5-10.1); CO2 24 mmol/L (21-32); CREATININE 0.7 mg/dL (0.55-1.02); GLUCOSE,RANDOM 188 mg/dL (74-106); SGOT/AST 18 U/L (15-37); SGPT/ALT 32 U/L (12-78); TOT PROT 4.8 g/dl (6.4-8.2)
--- NOTE | 2017-05-23 08:59 | PN ---
Progress Note, Physician History of Present Illness: This is a 82 yo woman PMH: dementia, hypothyroid, HTN, active tobacco, CAD s/p sent, CHF presenting to ICU after [facility] for hypoxic respiratory failure, SVT (HR 180s) and shock. Briefly, patient initially presented for frequent falls and altered mental status with overall physical and cognitive decline over the last 6 months prior to admission. CT head: w/ central atrophy and mild microvascular ischemic gliosis. Labs significant for hypothyroid, leukopenia and pyuria, she was started on ceftriaxone. Neurology was consulted. Endocrine consulted. Mental status had some improvement while on the floor. Speech and swallow eval done c/ f aspiration. ABX were switch to zosyn given increased secretions and c/f pneumonia. Plans made for potential PEG placement. Patient continued to have waxing and waning mental status. Patient had notable right facial droop and NCHCT done w/o acute pathology. She completed a course of ABX. GI was consulted for c/f GIB. Heme also consulted given anemia and leukopenia and w/u sent: flow- -0.2% blasts, clonal B cells questionable nonspecific immunophenotype. On day of ICU admission patient had witnessed aspiration event. [facility] CLERK was called in PM for hypoxia and tachycardia. Patient transferred to ICU for hypoxic respiratory failure. Patient intubated. ABG 7.3/54/242 (ACVC: 20/400/100 +5). Patient given adenosine for SVT w/ underlying sinus rhythm. Patient continued to have RVR and was given lopressor 5mg x1 w/ HR improved to 120s. Family called but were unavailable. - History Source - Current Medication List Current Medications: Active Medications Chlorhexidine Gluconate (Hibiclens For Decolonization -) 1 applic TP HS [facility] Last Admin: 05/22/17 22:30 Dose: Not Given Enoxaparin Sodium (Lovenox -) 30 mg SQ DAILY [facility] Last Admin: 05/22/17 10:13 Dose: 30 mg Hydrocortisone Sodium Succinate (Solu-Cortef -) 25 mg IVPUSH Q8H-IV [facility] Last Admin: 05/23/17 01:32 Dose: 25 mg Trimethoprim/Sulfamethoxazole (100 mg/ Dextrose) 256.25 mls @ 256.25 mls/hr IVPB Q8H-IV [facility] Last Admin: 05/23/17 02:11 Dose: 256.25 mls/hr Linezolid (Zyvox 600 Mg Premix Bag (Restricted To Id) -) 300 mls @ 300 mls/hr IVPB BID [facility] PRN Reason: Protocol Last Admin: 05/22/17 22:33 Dose: 300 mls/hr Levothyroxine Sodium (Synthroid Injection -) 44 mcg IVPUSH DAILY@0700 [facility] Last Admin: 05/23/17 06:15 Dose: 44 mcg Nystatin (Mycostatin Cream -) 1 applic TP BID [facility] Last Admin: 05/22/17 22:33 Dose: 1 applic Pantoprazole Sodium (Protonix Iv) 40 mg IVPUSH DAILY [facility] Last Admin: 05/22/17 10:13 Dose: 40 mg - Objective Vital Signs: Vital Signs Temperature 98.1 F 05/23/17 06:00 Pulse Rate 107 H 05/23/17 06:00 Respiratory Rate 20 05/23/17 06:00 Blood Pressure 141/65 05/23/17 06:00 O2 Sat by Pulse Oximetry (%) 100 05/22/17 21:00 Eyes: Yes: WNL, Conjunctiva Clear, EOM Intact HENT: Yes: WNL, Atraumatic, Normocephalic Neck: Yes: WNL, Supple, Trachea Midline Cardiovascular: Yes: WNL, Regular Rate and Rhythm Respiratory: Yes: WNL, Regular, CTA Bilaterally Gastrointestinal: Yes: WNL, Normal Bowel Sounds Genitourinary: Yes: WNL Musculoskeletal: Yes: WNL Extremities: Yes: WNL Edema: No Integumentary: Yes: WNL Neurological: Yes: WNL, Alert, Oriented ...Motor Strength: WNL Psychiatric: Yes: WNL Labs: CBC, BMP 05/23/17 06:05 INR, PTT INR 1.11 (0.82-1.09) 05/12/17 01:35 Problem List - Problems (1) Acute respiratory failure with hypoxia and hypercapnia Code(s): J96.01 - ACUTE RESPIRATORY FAILURE WITH HYPOXIA J96.02 - ACUTE RESPIRATORY FAILURE WITH HYPERCAPNIA (2) Altered mental status, unspecified Code(s): R41.82 - ALTERED MENTAL STATUS, UNSPECIFIED (3) Anemia Code(s): D64.9 - ANEMIA, UNSPECIFIED Qualifiers: Qualified Code(s): D62 - Acute posthemorrhagic anemia; D62 - Acute posthemorrhagic anemia (4) Aspiration pneumonia Code(s): J69.0 - PNEUMONITIS DUE TO INHALATION OF FOOD AND VOMIT (5) Dementia Code(s): F03.90 - UNSPECIFIED DEMENTIA WITHOUT BEHAVIORAL DISTURBANCE (6) Fever Code(s): R50.9 - FEVER, UNSPECIFIED (7) Pancytopenia Code(s): D61.818 - OTHER PANCYTOPENIA (8) Shock Code(s): R57.9 - SHOCK, UNSPECIFIED (9) UTI (urinary tract infection) Code(s): N39.0 - URINARY TRACT INFECTION, SITE NOT SPECIFIED (10) Aortic stenosis Code(s): I35.0 - NONRHEUMATIC AORTIC (VALVE) STENOSIS (11) CHF (congestive heart failure) Code(s): I50.9 - HEART FAILURE, UNSPECIFIED Qualifiers: Qualified Code(s): I50.9 - Heart failure, unspecified; I50.9 - Heart failure, unspecified; I50.9 - Heart failure, unspecified; I50.9 - Heart failure , unspecified (12) HTN (hypertension) Code(s): I10 - ESSENTIAL (PRIMARY) HYPERTENSION (13) Hypothyroidism Code(s): E03.9 - HYPOTHYROIDISM, UNSPECIFIED (14) Macrocytosis Code(s): D75.89 - OTHER SPECIFIED DISEASES OF BLOOD AND BLOOD-FORMING ORGANS (15) Osteoporosis Code(s): M81.0 - AGE-RELATED OSTEOPOROSIS W/O CURRENT PATHOLOGICAL FRACTURE (16) Paroxysmal SVT (supraventricular tachycardia) Code(s): I47.1 - SUPRAVENTRICULAR TACHYCARDIA (17) Smoking Code(s): F17.200 - NICOTINE DEPENDENCE, UNSPECIFIED, UNCOMPLICATED (18) Smoking addiction Code(s): F17.200 - NICOTINE DEPENDENCE, UNSPECIFIED, UNCOMPLICATED Assessment/Plan - Problems (1) Acute respiratory failure with hypoxia and hypercapnia Assessment/Plan: Now extubated. Maintain hydration. For transfer to floor. F/u neurological w/u. Code(s): J96.01 - ACUTE RESPIRATORY FAILURE WITH HYPOXIA J96.02 - ACUTE RESPIRATORY FAILURE WITH HYPERCAPNIA (2) Altered mental status, unspecified Code(s): R41.82 - ALTERED MENTAL STATUS, UNSPECIFIED (3) Anemia Code(s): D64.9 - ANEMIA, UNSPECIFIED Qualifiers: Qualified Code(s): D62 - Acute posthemorrhagic anemia; D62 - Acute posthemorrhagic anemia (4) Aspiration pneumonia Code(s): J69.0 - PNEUMONITIS DUE TO INHALATION OF FOOD AND VOMIT (5) Dementia Code(s): F03.90 - UNSPECIFIED DEMENTIA WITHOUT BEHAVIORAL DISTURBANCE (6) Fever Code(s): R50.9 - FEVER, UNSPECIFIED (7) Pancytopenia Code(s): D61.818 - OTHER PANCYTOPENIA (8) Shock Assessment/Plan: Off pressors. Mild systolic dysfunction. Continue fluids. Code(s): R57.9 - SHOCK, UNSPECIFIED (9) HTN (hypertension) Code(s): I10 - ESSENTIAL (PRIMARY) HYPERTENSION (10) Hypothyroidism Assessment/Plan: On Synthroid. TSH low; free T4 mildly elevated. Code(s): E03.9 - HYPOTHYROIDISM, UNSPECIFIED (11) Osteoporosis Code(s): M81.0 - AGE-RELATED OSTEOPOROSIS W/O CURRENT PATHOLOGICAL FRACTURE (12) Smoking Code(s): F17.200 - NICOTINE DEPENDENCE, UNSPECIFIED, UNCOMPLICATED (13) Acute on chronic systolic (congestive) heart failure Code(s): I50.23 - ACUTE ON CHRONIC SYSTOLIC (CONGESTIVE) HEART FAILURE (14) Sinus tachycardia Code(s): R00.0 - TACHYCARDIA, UNSPECIFIED (15) Hypomagnesemia Code(s): E83.42 - HYPOMAGNESEMIA (16) Hypokalemia Code(s): E87.6 - HYPOKALEMIA (17) Hypophosphatemia Code(s): E83.39 - OTHER DISORDERS OF PHOSPHORUS METABOLISM
--- NOTE | 2017-05-23 10:30 | PN ---
Progress Note, Physician History of Present Illness: No acute events noted overnight. Patient looks at examiner when spoken too, but non-verbal and does not follow commands or move her extremities. - Current Medication List Current Medications: Active Medications Chlorhexidine Gluconate (Hibiclens For Decolonization -) 1 applic TP HS [facility] Last Admin: 05/22/17 22:30 Dose: Not Given Enoxaparin Sodium (Lovenox -) 30 mg SQ DAILY [facility] Last Admin: 05/22/17 10:13 Dose: 30 mg Hydrocortisone Sodium Succinate (Solu-Cortef -) 25 mg IVPUSH Q8H-IV [facility] Last Admin: 05/23/17 01:32 Dose: 25 mg Trimethoprim/Sulfamethoxazole (100 mg/ Dextrose) 256.25 mls @ 256.25 mls/hr IVPB Q8H-IV [facility] Last Admin: 05/23/17 02:11 Dose: 256.25 mls/hr Linezolid (Zyvox 600 Mg Premix Bag (Restricted To Id) -) 300 mls @ 300 mls/hr IVPB BID [facility] PRN Reason: Protocol Last Admin: 05/22/17 22:33 Dose: 300 mls/hr Levothyroxine Sodium (Synthroid Injection -) 44 mcg IVPUSH DAILY@0700 [facility] Last Admin: 05/23/17 06:15 Dose: 44 mcg Nystatin (Mycostatin Cream -) 1 applic TP BID [facility] Last Admin: 05/22/17 22:33 Dose: 1 applic Pantoprazole Sodium (Protonix Iv) 40 mg IVPUSH DAILY [facility] Last Admin: 05/22/17 10:13 Dose: 40 mg - Objective Vital Signs: Vital Signs Temperature 98.1 F 05/23/17 06:00 Pulse Rate 107 H 05/23/17 06:00 Respiratory Rate 20 05/23/17 06:00 Blood Pressure 141/65 05/23/17 06:00 O2 Sat by Pulse Oximetry (%) 100 05/22/17 21:00 Constitutional: Yes: No Distress, Calm Neck: Yes: Supple, Trachea Midline Cardiovascular: Yes: Regular Rate and Rhythm, S1, S2. No: Murmur Respiratory: Yes: Diminished (bilaterally), Rhonchi (upper airway) Gastrointestinal: Yes: Normal Bowel Sounds, Soft, Abdomen, Obese, Other (G-tube present) Edema: Yes Edema: LUE: Trace, RUE: Trace, LLE: Trace, RLE: Trace Neurological: Yes: Confusion Labs: CBC, BMP 05/23/17 06:05 INR, PTT INR 1.11 (0.82-1.09) 05/12/17 01:35 Assessment/Plan Current Active Problems Acute on chronic systolic (congestive) heart failure (Acute) Acute respiratory failure (Acute) Acute respiratory failure with hypoxia and hypercapnia (Acute) Altered mental status, unspecified (Acute) Anemia (Acute) Aspiration pneumonia (Acute) Dementia (Acute) Fever (Acute) Hypokalemia (Acute) Hypomagnesemia (Acute) Hypophosphatemia (Acute) Pancytopenia (Acute) Septic shock (Acute) Shock (Acute) Sinus tachycardia (Acute) -continuing on abx, supportive care with tube feeds
[2017-05-23] MEDS: PANTOPRAZOLE SODIUM 40 MG VIAL IVPUSH SCH (10:41)
[2017-05-23] MEDS: ENOXAPARIN NA (PORCINE) 30 MG/0.3 ML DISP.SYRIN SQ SCH (10:42)
[2017-05-23] MEDS: LINEZOLID 600 MG PREMIX BAG 300 ML IVPB SCH ×2 (10:42→21:08)
[2017-05-23] MEDS: NYSTATIN 100,000 UNIT/GM TOPICAL CREAM 15 GM TUBE TP SCH ×2 (10:43→21:09)
--- NOTE | 2017-05-23 10:56 | PN ---
Progress Note (short form) - Note Progress Note: Awake. Tracking intermittently with eyes. Not following commands Breathing is non-labored. No acute events overnight. Intake & Output 05/20/17 05/21/17 05/22/17 05/23/17 23:59 23:59 23:59 23:59 Intake Total 965 1700 1400 1375 Output Total 8851 387 9557 400 Balance -535 900 300 975 Weight 119 lb 12.8 oz Last Vital Signs Temp Pulse Resp BP Pulse Ox 97.3 F L 119 H 20 139/82 100 05/23/17 10:00 05/23/17 10:00 05/23/17 10:00 05/23/17 10:00 05/22/17 21:00 Active Medications Chlorhexidine Gluconate (Hibiclens For Decolonization -) 1 applic TP HS [facility] Last Admin: 05/22/17 22:30 Dose: Not Given Enoxaparin Sodium (Lovenox -) 30 mg SQ DAILY [facility] Last Admin: 05/23/17 10:42 Dose: 30 mg Hydrocortisone Sodium Succinate (Solu-Cortef -) 25 mg IVPUSH Q8H-IV [facility] Last Admin: 05/23/17 10:41 Dose: 25 mg Trimethoprim/Sulfamethoxazole (100 mg/ Dextrose) 256.25 mls @ 256.25 mls/hr IVPB Q8H-IV [facility] Last Admin: 05/23/17 02:11 Dose: 256.25 mls/hr Linezolid (Zyvox 600 Mg Premix Bag (Restricted To Id) -) 300 mls @ 300 mls/hr IVPB BID [facility] PRN Reason: Protocol Last Admin: 05/23/17 10:42 Dose: 300 mls/hr Levothyroxine Sodium (Synthroid Injection -) 44 mcg IVPUSH DAILY@0700 [facility] Last Admin: 05/23/17 06:15 Dose: 44 mcg Nystatin (Mycostatin Cream -) 1 applic TP BID [facility] Last Admin: 05/23/17 10:43 Dose: 1 applic Pantoprazole Sodium (Protonix Iv) 40 mg IVPUSH DAILY [facility] Last Admin: 05/23/17 10:41 Dose: 40 mg General: frail woman HEENT: anicteric, no JVD CV: S1, S2, RRR Pulm: Bilateral scattered rhonchi Abd: Soft, ND, (+) BS Ext: +2 pulses Neuro: Blinks to threat, non-focal Laboratory Results - last 24 hr 05/23/17 06:05 WBC 7.7 RBC 2.46 L Hgb 8.6 L D Hct 24.5 L D MCV 99.6 H MCH 34.8 H MCHC 35.0 RDW 22.0 H Plt Count 184 D MPV 9.1 Neutrophils % 87.2 H Lymphocytes % 9.3 Monocytes % 2.8 L Eosinophils % 0.1 Basophils % 0.6 Problem List - Problems (1) Altered mental status, unspecified Code(s): R41.82 - ALTERED MENTAL STATUS, UNSPECIFIED (2) Aspiration pneumonia Code(s): J69.0 - PNEUMONITIS DUE TO INHALATION OF FOOD AND VOMIT (3) Dementia Code(s): F03.90 - UNSPECIFIED DEMENTIA WITHOUT BEHAVIORAL DISTURBANCE (4) Acute respiratory failure with hypoxia and hypercapnia Code(s): J96.01 - ACUTE RESPIRATORY FAILURE WITH HYPOXIA J96.02 - ACUTE RESPIRATORY FAILURE WITH HYPERCAPNIA (5) Pancytopenia Code(s): D61.818 - OTHER PANCYTOPENIA (6) CHF (congestive heart failure) Code(s): I50.9 - HEART FAILURE, UNSPECIFIED Qualifiers: Congestive heart failure type: unspecified congestive heart failure type Congestive heart failure chronicity: chronic Qualified Code(s): I50.9 - Heart failure, unspecified; I50.9 - Heart failure, unspecified; I50.9 - Heart failure, unspecified; I50.9 - Heart failure, unspecified (7) Hypothyroidism Code(s): E03.9 - HYPOTHYROIDISM, UNSPECIFIED (8) Paroxysmal SVT (supraventricular tachycardia) Code(s): I47.1 - SUPRAVENTRICULAR TACHYCARDIA (9) Shock Code(s): R57.9 - SHOCK, UNSPECIFIED Assessment/Plan HOB >30, oral care O2 as needed to maintain saturation ABX coverage per ID If she succumbs to another respiratory failure -> Will need Trach Dr Melgar
--- NOTE | 2017-05-23 18:41 | PN ---
Progress Note, Physician History of Present Illness: Pt remains in same condition. Weak, not following commands. No repiratory distress noted. Afebrile. - Current Medication List Current Medications: Active Medications Enoxaparin Sodium (Lovenox -) 30 mg SQ DAILY [facility] Last Admin: 05/23/17 10:42 Dose: 30 mg Hydrocortisone Sodium Succinate (Solu-Cortef -) 25 mg IVPUSH Q8H-IV [facility] Last Admin: 05/23/17 10:41 Dose: 25 mg Trimethoprim/Sulfamethoxazole (100 mg/ Dextrose) 256.25 mls @ 256.25 mls/hr IVPB Q8H-IV [facility] Last Admin: 05/23/17 10:00 Dose: 256.25 mls/hr Linezolid (Zyvox 600 Mg Premix Bag (Restricted To Id) -) 300 mls @ 300 mls/hr IVPB BID [facility] PRN Reason: Protocol Last Admin: 05/23/17 10:42 Dose: 300 mls/hr Levothyroxine Sodium (Synthroid Injection -) 44 mcg IVPUSH DAILY@0700 [facility] Last Admin: 05/23/17 06:15 Dose: 44 mcg Nystatin (Mycostatin Cream -) 1 applic TP BID [facility] Last Admin: 05/23/17 10:43 Dose: 1 applic Pantoprazole Sodium (Protonix Iv) 40 mg IVPUSH DAILY [facility] Last Admin: 05/23/17 10:41 Dose: 40 mg - Objective Vital Signs: Vital Signs Temperature 97.3 F L 05/23/17 10:00 Pulse Rate 126 H 05/23/17 16:02 Respiratory Rate 24 05/23/17 16:02 Blood Pressure 143/103 05/23/17 16:02 O2 Sat by Pulse Oximetry (%) 96 05/23/17 09:00 Constitutional: Yes: No Distress Cardiovascular: Yes: Regular Rate and Rhythm Respiratory: Yes: Other (coarse breath sounds b/l) Gastrointestinal: Yes: Normal Bowel Sounds, Soft Labs: CBC, BMP 05/23/17 06:05 05/23/17 06:05 INR, PTT INR 1.11 (0.82-1.09) 05/12/17 01:35 Problem List - Problems (1) Pancytopenia Code(s): D61.818 - OTHER PANCYTOPENIA (2) Fever Code(s): R50.9 - FEVER, UNSPECIFIED (3) Altered mental status, unspecified Code(s): R41.82 - ALTERED MENTAL STATUS, UNSPECIFIED (4) Aspiration pneumonia Code(s): J69.0 - PNEUMONITIS DUE TO INHALATION OF FOOD AND VOMIT (5) CHF (congestive heart failure) Code(s): I50.9 - HEART FAILURE, UNSPECIFIED Qualifiers: Qualified Code(s): I50.9 - Heart failure, unspecified; I50.9 - Heart failure, unspecified; I50.9 - Heart failure, unspecified; I50.9 - Heart failure , unspecified Assessment/Plan s/p Septic shock Acute respiratory failure s/p extubation PNA -- pt appears stable at this time - continue current antibiotics supportive care
[2017-05-24] MEDS: HYDROCORTISONE SOD SUCCINATE 100 MG/2 ML VIAL IVPUSH SCH ×3 (01:47→18:47)
[2017-05-24] MEDS: SULFAMETHOXAZOLE IVPB SCH ×3 (01:50→19:03)
[2017-05-24] MEDS: TRIMETHOPRIM IVPB SCH ×3 (01:50→19:03)
[2017-05-24] MEDS: WATER IVPB SCH ×3 (01:50→19:03)
[2017-05-24] MEDS: DEXTROSE 5% IVPB SCH ×3 (01:50→19:03)
[2017-05-24] MEDS: LEVOTHYROXINE SODIUM 100 MCG VIAL IVPUSH SCH (06:05)
[2017-05-24 06:55] LABS: ALBUMIN 1.7 g/dl (3.4-5.0); ANION GAP 10 (8-16); BILIRUBIN,TOTAL 0.7 mg/dL (0.2-1.0); CO2 24 mmol/L (21-32); CREATININE 0.7 mg/dL (0.55-1.02); GLUCOSE,RANDOM 173 mg/dL (74-106); SGOT/AST 22 U/L (15-37); SGPT/ALT 40 U/L (12-78); TOT PROT 4.7 g/dl (6.4-8.2)
[2017-05-24 06:58] LABS: ALK PHOS 232 U/L (45-117); CALCIUM 7.1 mg/dL (8.5-10.1)
[2017-05-24 07:04] LABS: BASOPHIL 0.2 % (0-2.0); EOSINOPHIL 0.3 % (0-4.5); MCH 35.4 pg (25.7-33.7); MCHC 35.2 g/dl (32.0-36.0); MEAN CELL VOLUME 100.5 fl (80-96); MEAN PLT VOLUME 8.2 fl (7.5-11.1); PLATELET COUNT 208 K/MM3 (134-434); RDW 21.8 % (11.6-15.6); WHITE BLOOD COUNT 7.7 K/mm3 (4.0-10.0)
--- NOTE | 2017-05-24 10:24 | PN ---
Progress Note (short form) - Note Progress Note: PULMONARY Pt nonverbal. No fevers recorded. Last Vital Signs Temp Pulse Resp BP Pulse Ox 98.8 F 120 H 20 155/75 96 05/24/17 05:44 05/24/17 05:44 05/24/17 05:44 05/24/17 05:44 05/23/17 21:00 Gen: mildly tachypneic at rest Heart: tachycardic, regular Lung: scattered rhonchi Abd: soft, nontender Ext: +UE edema CBC, BMP 05/24/17 05:35 05/24/17 05:35 Active Medications Enoxaparin Sodium (Lovenox -) 30 mg SQ DAILY [facility] Last Admin: 05/23/17 10:42 Dose: 30 mg Hydrocortisone Sodium Succinate (Solu-Cortef -) 25 mg IVPUSH Q8H-IV [facility] Last Admin: 05/24/17 01:47 Dose: 25 mg Trimethoprim/Sulfamethoxazole (100 mg/ Dextrose) 256.25 mls @ 256.25 mls/hr IVPB Q8H-IV [facility] Last Admin: 05/24/17 01:50 Dose: 256.25 mls/hr Linezolid (Zyvox 600 Mg Premix Bag (Restricted To Id) -) 300 mls @ 300 mls/hr IVPB BID [facility] PRN Reason: Protocol Last Admin: 05/23/17 21:08 Dose: 300 mls/hr Levothyroxine Sodium (Synthroid Injection -) 44 mcg IVPUSH DAILY@0700 [facility] Last Admin: 05/24/17 06:05 Dose: 44 mcg Nystatin (Mycostatin Cream -) 1 applic TP BID [facility] Last Admin: 05/23/17 21:09 Dose: 1 applic Pantoprazole Sodium (Protonix Iv) 40 mg IVPUSH DAILY [facility] Last Admin: 05/23/17 10:41 Dose: 40 mg A/P s/p Acute Respiratory Failure Pneumonia UTI s/p Septic Shock Dementia - antibiotics per ID - aspiration precautions - taper off steroids - O2 to keep SpO2 >90% - DVT prophylaxis - prognosis guarded
[2017-05-24] MEDS: PANTOPRAZOLE SODIUM 40 MG VIAL IVPUSH SCH (11:00)
[2017-05-24] MEDS: NYSTATIN 100,000 UNIT/GM TOPICAL CREAM 15 GM TUBE TP SCH ×2 (11:00→23:15)
[2017-05-24] MEDS: LINEZOLID 600 MG PREMIX BAG 300 ML IVPB SCH ×2 (11:26→23:14)
[2017-05-24] MEDS: ENOXAPARIN NA (PORCINE) 30 MG/0.3 ML DISP.SYRIN SQ SCH (11:27)
--- NOTE | 2017-05-24 11:30 | PN ---
Progress Note, Physician Chief Complaint: Unable to obtain - Current Medication List Current Medications: Active Medications Diltiazem HCl (Cardizem -) 30 mg PEG QID [facility] Enoxaparin Sodium (Lovenox -) 30 mg SQ DAILY [facility] Last Admin: 05/24/17 11:27 Dose: 30 mg Hydrocortisone Sodium Succinate (Solu-Cortef -) 25 mg IVPUSH Q8H-IV [facility] Last Admin: 05/24/17 11:27 Dose: 25 mg Trimethoprim/Sulfamethoxazole (100 mg/ Dextrose) 256.25 mls @ 256.25 mls/hr IVPB Q8H-IV [facility] Last Admin: 05/24/17 11:00 Dose: 256.25 mls/hr Linezolid (Zyvox 600 Mg Premix Bag (Restricted To Id) -) 300 mls @ 300 mls/hr IVPB BID [facility] PRN Reason: Protocol Last Admin: 05/24/17 11:26 Dose: 300 mls/hr Levothyroxine Sodium (Synthroid -) 88 mcg PEG DAILY@0700 [facility] Nystatin (Mycostatin Cream -) 1 applic TP BID [facility] Last Admin: 05/24/17 11:00 Dose: 1 applic Pantoprazole Sodium (Protonix Iv) 40 mg IVPUSH DAILY [facility] Last Admin: 05/24/17 11:00 Dose: 40 mg - Objective Vital Signs: Vital Signs Temperature 37.1 C 05/24/17 05:44 Pulse Rate 120 H 05/24/17 05:44 Respiratory Rate 20 05/24/17 05:44 Blood Pressure 155/75 05/24/17 05:44 O2 Sat by Pulse Oximetry (%) 96 05/23/17 21:00 Constitutional: Yes: No Distress, Calm Cardiovascular: Yes: Tachycardia, Pulse Irregular. No: Gallop, Murmur, Rub Respiratory: Yes: Regular, Rhonchi. No: CTA Bilaterally, Rales, Tachypnea, Wheezes Gastrointestinal: Yes: Normal Bowel Sounds, Soft. No: Distention, Tenderness Extremities: Yes: WNL Edema: Yes Edema: LUE: Trace Labs: CBC, BMP 05/24/17 05:35 05/24/17 05:35 INR, PTT INR 1.11 (0.82-1.09) 05/12/17 01:35 Problem List - Problems (1) UTI (urinary tract infection) Code(s): N39.0 - URINARY TRACT INFECTION, SITE NOT SPECIFIED (2) Dementia Code(s): F03.90 - UNSPECIFIED DEMENTIA WITHOUT BEHAVIORAL DISTURBANCE (3) Pancytopenia Code(s): D61.818 - OTHER PANCYTOPENIA (4) CHF (congestive heart failure) Code(s): I50.9 - HEART FAILURE, UNSPECIFIED Qualifiers: Qualified Code(s): I50.9 - Heart failure, unspecified; I50.9 - Heart failure, unspecified; I50.9 - Heart failure, unspecified; I50.9 - Heart failure , unspecified (5) HTN (hypertension) Code(s): I10 - ESSENTIAL (PRIMARY) HYPERTENSION (6) Hypothyroidism Code(s): E03.9 - HYPOTHYROIDISM, UNSPECIFIED (7) Aspiration pneumonia Code(s): J69.0 - PNEUMONITIS DUE TO INHALATION OF FOOD AND VOMIT (8) Anemia Code(s): D64.9 - ANEMIA, UNSPECIFIED Qualifiers: Qualified Code(s): D62 - Acute posthemorrhagic anemia; D62 - Acute posthemorrhagic anemia (9) Septic shock Code(s): A41.9 - SEPSIS, UNSPECIFIED ORGANISM R65.21 - SEVERE SEPSIS WITH SEPTIC SHOCK (10) Acute respiratory failure Code(s): J96.00 - ACUTE RESPIRATORY FAILURE, UNSP W HYPOXIA OR HYPERCAPNIA Assessment/Plan (1) Pneumonia Assessment/Plan: -ID following and appreciate assistance -growing stenotrophomonas -continue IV bactrim per ID Code(s): N39.0 - URINARY TRACT INFECTION, SITE NOT SPECIFIED (2) Elevated troponins Assessment/Plan: -stress induced -cardiology monitoring (3) Septic shock Assessment/Plan: -resolved -continue IV antibiotics per ID (4) CHF (congestive heart failure) Assessment/Plan: -ECHO reviewed Code(s): I50.9 - HEART FAILURE, UNSPECIFIED Qualifiers: Congestive heart failure type: unspecified congestive heart failure type Congestive heart failure chronicity: chronic Qualified Code(s): I50.9 - Heart failure, unspecified (5) HTN (hypertension) Assessment/Plan: -elevated -while does not need tight blood pressure control, will add low dose diltiazem for tachycardia Code(s): I10 - ESSENTIAL (PRIMARY) HYPERTENSION (6) Hypothyroidism Assessment/Plan: -change to PEG synthroid Code(s): E03.9 - HYPOTHYROIDISM, UNSPECIFIED (7) Respiratory failure -pulmonary following -weaning steroids as tolerated (8) Dementia -present and chronic (9) UTI -growing VRE -on linezolid per ID (10) FTT -PEG tube placed -tube feeds started (11) Tachycardia -cardiology following -will add diltiazem for both blood pressure and heart rate
--- NOTE | 2017-05-24 12:38 | PN ---
Progress Note, Physician History of Present Illness: stable calm much better opens eyes - Current Medication List Current Medications: Active Medications Diltiazem HCl (Cardizem -) 30 mg PEG TID [facility] Enoxaparin Sodium (Lovenox -) 30 mg SQ DAILY [facility] Last Admin: 05/24/17 11:27 Dose: 30 mg Hydrocortisone Sodium Succinate (Solu-Cortef -) 25 mg IVPUSH Q8H-IV [facility] Last Admin: 05/24/17 11:27 Dose: 25 mg Trimethoprim/Sulfamethoxazole (100 mg/ Dextrose) 256.25 mls @ 256.25 mls/hr IVPB Q8H-IV [facility] Last Admin: 05/24/17 11:00 Dose: 256.25 mls/hr Linezolid (Zyvox 600 Mg Premix Bag (Restricted To Id) -) 300 mls @ 300 mls/hr IVPB BID [facility] PRN Reason: Protocol Last Admin: 05/24/17 11:26 Dose: 300 mls/hr Levothyroxine Sodium (Synthroid -) 88 mcg PEG DAILY@0700 [facility] Nystatin (Mycostatin Cream -) 1 applic TP BID [facility] Last Admin: 05/24/17 11:00 Dose: 1 applic Pantoprazole Sodium (Protonix Iv) 40 mg IVPUSH DAILY [facility] Last Admin: 05/24/17 11:00 Dose: 40 mg - Objective Vital Signs: Vital Signs Temperature 98.6 F 05/24/17 11:35 Pulse Rate 123 H 05/24/17 11:35 Respiratory Rate 20 05/24/17 11:35 Blood Pressure 145/83 05/24/17 11:35 O2 Sat by Pulse Oximetry (%) 96 05/23/17 21:00 Constitutional: Yes: No Distress, Calm Cardiovascular: Yes: Regular Rate and Rhythm Respiratory: Yes: Regular, Poor Air Entry (bases) Gastrointestinal: Yes: Normal Bowel Sounds, Soft, Other (peg in place) Musculoskeletal: Yes: WNL Extremities: Yes: WNL Neurological: Yes: Alert Psychiatric: Yes: Alert Labs: CBC, BMP 05/24/17 05:35 05/24/17 05:35 INR, PTT INR 1.11 (0.82-1.09) 05/12/17 01:35 Assessment/Plan Problem List - Problems (1) UTI (urinary tract infection) Code(s): N39.0 - URINARY TRACT INFECTION, SITE NOT SPECIFIED (2) Dementia Code(s): F03.90 - UNSPECIFIED DEMENTIA WITHOUT BEHAVIORAL DISTURBANCE (3) Pancytopenia Code(s): D61.818 - OTHER PANCYTOPENIA (4) CHF (congestive heart failure) Code(s): I50.9 - HEART FAILURE, UNSPECIFIED Qualifiers: Congestive heart failure type: unspecified congestive heart failure type Congestive heart failure chronicity: chronic Qualified Code(s): I50.9 - Heart failure, unspecified (5) HTN (hypertension) Code(s): I10 - ESSENTIAL (PRIMARY) HYPERTENSION (6) Hypothyroidism Code(s): E03.9 - HYPOTHYROIDISM, UNSPECIFIED Aspiration pneumonia Code(s): J69.0 - PNEUMONITIS DUE TO INHALATION OF FOOD AND VOMIT lactic acidosis plan continue nutrition continue abx close watch nutrition support rest as per icu stable patient will need both abx for a total of 14 days
--- NOTE | 2017-05-24 13:23 | PN ---
Progress Note, Physician History of Present Illness: This is a 82 yo woman PMH: dementia, hypothyroid, HTN, active tobacco, CAD s/p sent, CHF presenting to ICU after [employer] for hypoxic respiratory failure, SVT (HR 180s) and shock. Briefly, patient initially presented for frequent falls and altered mental status with overall physical and cognitive decline over the last 6 months prior to admission. CT head: w/ central atrophy and mild microvascular ischemic gliosis. Labs significant for hypothyroid, leukopenia and pyuria, she was started on ceftriaxone. Neurology was consulted. Endocrine consulted. Mental status had some improvement while on the floor. Speech and swallow eval done c/ f aspiration. ABX were switch to zosyn given increased secretions and c/f pneumonia. Plans made for potential PEG placement. Patient continued to have waxing and waning mental status. Patient had notable right facial droop and NCHCT done w/o acute pathology. She completed a course of ABX. GI was consulted for c/f GIB. Heme also consulted given anemia and leukopenia and w/u sent: flow- -0.2% blasts, clonal B cells questionable nonspecific immunophenotype. On day of ICU admission patient had witnessed aspiration event. [employer] [facility] [facility] was called in PM for hypoxia and tachycardia. Patient transferred to ICU for hypoxic respiratory failure. Patient intubated. ABG 7.3/54/242 (ACVC: 20/400/100 +5). Patient given adenosine for SVT w/ underlying sinus rhythm. Patient continued to have RVR and was given lopressor 5mg x1 w/ HR improved to 120s. Family called but were unavailable. - History Source - Current Medication List Current Medications: Active Medications Diltiazem HCl (Cardizem -) 30 mg PEG TID [facility] Enoxaparin Sodium (Lovenox -) 30 mg SQ DAILY [facility] Last Admin: 05/24/17 11:27 Dose: 30 mg Hydrocortisone Sodium Succinate (Solu-Cortef -) 25 mg IVPUSH Q8H-IV [facility] Last Admin: 05/24/17 11:27 Dose: 25 mg Trimethoprim/Sulfamethoxazole (100 mg/ Dextrose) 256.25 mls @ 256.25 mls/hr IVPB Q8H-IV [facility] Last Admin: 05/24/17 11:00 Dose: 256.25 mls/hr Linezolid (Zyvox 600 Mg Premix Bag (Restricted To Id) -) 300 mls @ 300 mls/hr IVPB BID [facility] PRN Reason: Protocol Last Admin: 05/24/17 11:26 Dose: 300 mls/hr Levothyroxine Sodium (Synthroid -) 88 mcg PEG DAILY@0700 [facility] Nystatin (Mycostatin Cream -) 1 applic TP BID [facility] Last Admin: 05/24/17 11:00 Dose: 1 applic Pantoprazole Sodium (Protonix Iv) 40 mg IVPUSH DAILY [facility] Last Admin: 05/24/17 11:00 Dose: 40 mg - Objective Vital Signs: Vital Signs Temperature 98.6 F 05/24/17 11:35 Pulse Rate 123 H 05/24/17 11:35 Respiratory Rate 20 05/24/17 11:35 Blood Pressure 145/83 05/24/17 11:35 O2 Sat by Pulse Oximetry (%) 100 05/24/17 09:00 Eyes: Yes: WNL, Conjunctiva Clear, EOM Intact HENT: Yes: WNL, Atraumatic, Normocephalic Neck: Yes: WNL, Supple, Trachea Midline Cardiovascular: Yes: WNL, Regular Rate and Rhythm Respiratory: Yes: WNL, Regular, CTA Bilaterally Gastrointestinal: Yes: WNL, Normal Bowel Sounds Genitourinary: Yes: WNL Musculoskeletal: Yes: WNL Extremities: Yes: WNL Edema: No Integumentary: Yes: WNL Neurological: Yes: WNL, Alert, Oriented ...Motor Strength: WNL Psychiatric: Yes: WNL Labs: CBC, BMP 05/24/17 05:35 05/24/17 05:35 INR, PTT INR 1.11 (0.82-1.09) 05/12/17 01:35 Problem List - Problems (1) Acute respiratory failure with hypoxia and hypercapnia Code(s): J96.01 - ACUTE RESPIRATORY FAILURE WITH HYPOXIA J96.02 - ACUTE RESPIRATORY FAILURE WITH HYPERCAPNIA (2) Altered mental status, unspecified Code(s): R41.82 - ALTERED MENTAL STATUS, UNSPECIFIED (3) Anemia Code(s): D64.9 - ANEMIA, UNSPECIFIED Qualifiers: Qualified Code(s): D62 - Acute posthemorrhagic anemia; D62 - Acute posthemorrhagic anemia (4) Aspiration pneumonia Code(s): J69.0 - PNEUMONITIS DUE TO INHALATION OF FOOD AND VOMIT (5) Dementia Code(s): F03.90 - UNSPECIFIED DEMENTIA WITHOUT BEHAVIORAL DISTURBANCE (6) Fever Code(s): R50.9 - FEVER, UNSPECIFIED (7) Pancytopenia Code(s): D61.818 - OTHER PANCYTOPENIA (8) Shock Code(s): R57.9 - SHOCK, UNSPECIFIED (9) UTI (urinary tract infection) Code(s): N39.0 - URINARY TRACT INFECTION, SITE NOT SPECIFIED (10) Aortic stenosis Code(s): I35.0 - NONRHEUMATIC AORTIC (VALVE) STENOSIS (11) CHF (congestive heart failure) Code(s): I50.9 - HEART FAILURE, UNSPECIFIED Qualifiers: Qualified Code(s): I50.9 - Heart failure, unspecified; I50.9 - Heart failure, unspecified; I50.9 - Heart failure, unspecified; I50.9 - Heart failure , unspecified (12) HTN (hypertension) Code(s): I10 - ESSENTIAL (PRIMARY) HYPERTENSION (13) Hypothyroidism Code(s): E03.9 - HYPOTHYROIDISM, UNSPECIFIED (14) Macrocytosis Code(s): D75.89 - OTHER SPECIFIED DISEASES OF BLOOD AND BLOOD-FORMING ORGANS (15) Osteoporosis Code(s): M81.0 - AGE-RELATED OSTEOPOROSIS W/O CURRENT PATHOLOGICAL FRACTURE (16) Paroxysmal SVT (supraventricular tachycardia) Code(s): I47.1 - SUPRAVENTRICULAR TACHYCARDIA (17) Smoking Code(s): F17.200 - NICOTINE DEPENDENCE, UNSPECIFIED, UNCOMPLICATED (18) Smoking addiction Code(s): F17.200 - NICOTINE DEPENDENCE, UNSPECIFIED, UNCOMPLICATED Assessment/Plan - Problems (1) Acute respiratory failure with hypoxia and hypercapnia Assessment/Plan: Now extubated. Maintain hydration. For transfer to floor. F/u neurological w/u. Code(s): J96.01 - ACUTE RESPIRATORY FAILURE WITH HYPOXIA J96.02 - ACUTE RESPIRATORY FAILURE WITH HYPERCAPNIA (2) Altered mental status, unspecified Code(s): R41.82 - ALTERED MENTAL STATUS, UNSPECIFIED (3) Anemia Code(s): D64.9 - ANEMIA, UNSPECIFIED Qualifiers: Qualified Code(s): D62 - Acute posthemorrhagic anemia; D62 - Acute posthemorrhagic anemia (4) Aspiration pneumonia Code(s): J69.0 - PNEUMONITIS DUE TO INHALATION OF FOOD AND VOMIT (5) Dementia Code(s): F03.90 - UNSPECIFIED DEMENTIA WITHOUT BEHAVIORAL DISTURBANCE (6) Fever Code(s): R50.9 - FEVER, UNSPECIFIED (7) Pancytopenia Code(s): D61.818 - OTHER PANCYTOPENIA (8) Shock Assessment/Plan: Off pressors. Mild systolic dysfunction. Continue fluids. Code(s): R57.9 - SHOCK, UNSPECIFIED (9) HTN (hypertension) Code(s): I10 - ESSENTIAL (PRIMARY) HYPERTENSION (10) Hypothyroidism Assessment/Plan: On Synthroid. TSH low; free T4 mildly elevated. Code(s): E03.9 - HYPOTHYROIDISM, UNSPECIFIED (11) Osteoporosis Code(s): M81.0 - AGE-RELATED OSTEOPOROSIS W/O CURRENT PATHOLOGICAL FRACTURE (12) Smoking Code(s): F17.200 - NICOTINE DEPENDENCE, UNSPECIFIED, UNCOMPLICATED (13) Acute on chronic systolic (congestive) heart failure Code(s): I50.23 - ACUTE ON CHRONIC SYSTOLIC (CONGESTIVE) HEART FAILURE (14) Sinus tachycardia Code(s): R00.0 - TACHYCARDIA, UNSPECIFIED (15) Hypomagnesemia Code(s): E83.42 - HYPOMAGNESEMIA (16) Hypokalemia Code(s): E87.6 - HYPOKALEMIA (17) Hypophosphatemia Code(s): E83.39 - OTHER DISORDERS OF PHOSPHORUS METABOLISM
[2017-05-24] MEDS ORDERED: dilTIAZem HCL 30 MG TABLET (FP) PEG SCH (14:00)
[2017-05-24] MEDS: dilTIAZem HCL 30 MG TABLET (FP) PEG SCH ×2 (14:12→23:14)
[2017-05-24] MEDS ORDERED: PT OWN MED DRAWER 7, Y5N ONE (22:56)
[2017-05-25] MEDS ORDERED: PT OWN MED DRAWER 7, Y5N ONE ×5 (01:54→22:47)
[2017-05-25] MEDS: HYDROCORTISONE SOD SUCCINATE 100 MG/2 ML VIAL IVPUSH SCH ×3 (02:00→23:04)
[2017-05-25] MEDS: TRIMETHOPRIM IVPB SCH ×3 (02:37→18:22)
[2017-05-25] MEDS: DEXTROSE 5% IVPB SCH ×3 (02:37→18:22)
[2017-05-25] MEDS: WATER IVPB SCH ×3 (02:37→18:22)
[2017-05-25] MEDS: SULFAMETHOXAZOLE IVPB SCH ×3 (02:37→18:22)
[2017-05-25] MEDS: dilTIAZem HCL 30 MG TABLET (FP) PEG SCH ×3 (06:23→23:04)
[2017-05-25] MEDS: LEVOTHYROXINE NA 88 MCG TABLET (FP) PEG SCH (06:23)
[2017-05-25 07:45] LABS: BASOPHIL 0.1 % (0-2.0); EOSINOPHIL 0.2 % (0-4.5); MCH 35.3 pg (25.7-33.7); MCHC 35.3 g/dl (32.0-36.0); MEAN PLT VOLUME 7.7 fl (7.5-11.1); NEUTROPHILS 87.9 % (42.8-82.8); PLATELET COUNT 192 K/MM3 (134-434); RDW 22.3 % (11.6-15.6); WHITE BLOOD COUNT 6.7 K/mm3 (4.0-10.0)
[2017-05-25 08:26] LABS: ANION GAP 9 (8-16); CALCIUM 7.1 mg/dL (8.5-10.1); CO2 26 mmol/L (21-32); CREATININE 0.7 mg/dL (0.55-1.02); GLUCOSE,RANDOM 164 mg/dL (74-106); MAGNESIUM 1.8 mg/dL (1.8-2.4); PHOSPHOROUS 2.4 mg/dL (2.5-4.9)
[2017-05-25] MEDS: NYSTATIN 100,000 UNIT/GM TOPICAL CREAM 15 GM TUBE TP SCH ×2 (10:14→23:04)
[2017-05-25] MEDS: ENOXAPARIN NA (PORCINE) 30 MG/0.3 ML DISP.SYRIN SQ SCH (10:14)
[2017-05-25] MEDS: PANTOPRAZOLE SODIUM 40 MG VIAL IVPUSH SCH (10:14)
--- NOTE | 2017-05-25 10:24 | PN ---
Progress Note (short form) - Note Progress Note: PULMONARY Pt nonverbal. No fevers recorded. Last Vital Signs Temp Pulse Resp BP Pulse Ox 97.8 F 100 H 22 150/82 96 05/25/17 09:00 05/25/17 09:00 05/25/17 09:00 05/25/17 09:00 05/24/17 21:00 Gen: mildly tachypneic at rest Heart: tachycardic, regular Lung: scattered rhonchi, wheezes Abd: soft, nontender Ext: +UE edema CBC, BMP 05/25/17 06:00 05/25/17 06:00 Active Medications Diltiazem HCl (Cardizem -) 30 mg PEG TID [facility] Last Admin: 05/25/17 06:23 Dose: 30 mg Enoxaparin Sodium (Lovenox -) 30 mg SQ DAILY [facility] Last Admin: 05/25/17 10:14 Dose: 30 mg Hydrocortisone Sodium Succinate (Solu-Cortef -) 25 mg IVPUSH Q8H-IV [facility] Last Admin: 05/25/17 10:15 Dose: 25 mg Trimethoprim/Sulfamethoxazole (100 mg/ Dextrose) 256.25 mls @ 256.25 mls/hr IVPB Q8H-IV [facility] Last Admin: 05/25/17 09:48 Dose: 256.25 mls/hr Linezolid (Zyvox 600 Mg Premix Bag (Restricted To Id) -) 300 mls @ 300 mls/hr IVPB BID [facility] PRN Reason: Protocol Last Admin: 05/24/17 23:14 Dose: 300 mls/hr Levothyroxine Sodium (Synthroid -) 88 mcg PEG DAILY@0700 [facility] Last Admin: 05/25/17 06:23 Dose: 88 mcg Nystatin (Mycostatin Cream -) 1 applic TP BID [facility] Last Admin: 05/25/17 10:14 Dose: 1 applic Pantoprazole Sodium (Protonix Iv) 40 mg IVPUSH DAILY [facility] Last Admin: 05/25/17 10:14 Dose: 40 mg A/P s/p Acute Respiratory Failure Pneumonia UTI s/p Septic Shock Dementia - antibiotics per ID - aspiration precautions - taper off steroids - O2 to keep SpO2 >90% - DVT prophylaxis - prognosis guarded - consider palliative care
[2017-05-25] MEDS: LINEZOLID 600 MG PREMIX BAG 300 ML IVPB SCH ×2 (12:00→23:05)
--- NOTE | 2017-05-25 12:49 | PN ---
Progress Note, Physician Chief Complaint: Unable to obtain - Current Medication List Current Medications: Active Medications Diltiazem HCl (Cardizem -) 30 mg PEG TID [facility] Last Admin: 05/25/17 06:23 Dose: 30 mg Enoxaparin Sodium (Lovenox -) 30 mg SQ DAILY [facility] Last Admin: 05/25/17 10:14 Dose: 30 mg Hydrocortisone Sodium Succinate (Solu-Cortef -) 25 mg IVPUSH Q12H [facility] Stop: 05/28/17 10:01 Trimethoprim/Sulfamethoxazole (100 mg/ Dextrose) 256.25 mls @ 256.25 mls/hr IVPB Q8H-IV [facility] Last Admin: 05/25/17 09:48 Dose: 256.25 mls/hr Linezolid (Zyvox 600 Mg Premix Bag (Restricted To Id) -) 300 mls @ 300 mls/hr IVPB BID [facility] PRN Reason: Protocol Last Admin: 05/24/17 23:14 Dose: 300 mls/hr Levothyroxine Sodium (Synthroid -) 88 mcg PEG DAILY@0700 [facility] Last Admin: 05/25/17 06:23 Dose: 88 mcg Nystatin (Mycostatin Cream -) 1 applic TP BID [facility] Last Admin: 05/25/17 10:14 Dose: 1 applic Pantoprazole Sodium (Protonix Packets For Oral Suspension -) 40 mg PEG DAILY [facility] Potassium Phos/Sodium Phos (Phos-Nak Packet -) 1 packet PEG TID [facility] Stop: 05/27/17 06:01 - Objective Vital Signs: Vital Signs Temperature 36.6 C 05/25/17 09:00 Pulse Rate 100 H 05/25/17 09:00 Respiratory Rate 22 05/25/17 09:00 Blood Pressure 150/82 05/25/17 09:00 O2 Sat by Pulse Oximetry (%) 96 05/24/17 21:00 Constitutional: Yes: No Distress, Calm Cardiovascular: Yes: Regular Rate and Rhythm. No: Gallop, Murmur, Rub Respiratory: Yes: Regular, On Nasal O2, Rhonchi. No: CTA Bilaterally, Rales, Wheezes Gastrointestinal: Yes: Normal Bowel Sounds, Soft. No: Distention, Tenderness Extremities: Yes: WNL Edema: Yes Edema: LUE: Trace, RUE: Trace, LLE: Trace, RLE: Trace Labs: CBC, BMP 05/25/17 06:00 05/25/17 06:00 INR, PTT INR 1.11 (0.82-1.09) 05/12/17 01:35 Problem List - Problems (1) UTI (urinary tract infection) Code(s): N39.0 - URINARY TRACT INFECTION, SITE NOT SPECIFIED (2) Dementia Code(s): F03.90 - UNSPECIFIED DEMENTIA WITHOUT BEHAVIORAL DISTURBANCE (3) Pancytopenia Code(s): D61.818 - OTHER PANCYTOPENIA (4) CHF (congestive heart failure) Code(s): I50.9 - HEART FAILURE, UNSPECIFIED Qualifiers: Qualified Code(s): I50.9 - Heart failure, unspecified; I50.9 - Heart failure, unspecified; I50.9 - Heart failure, unspecified; I50.9 - Heart failure , unspecified (5) HTN (hypertension) Code(s): I10 - ESSENTIAL (PRIMARY) HYPERTENSION (6) Hypothyroidism Code(s): E03.9 - HYPOTHYROIDISM, UNSPECIFIED (7) Aspiration pneumonia Code(s): J69.0 - PNEUMONITIS DUE TO INHALATION OF FOOD AND VOMIT (8) Anemia Code(s): D64.9 - ANEMIA, UNSPECIFIED Qualifiers: Qualified Code(s): D62 - Acute posthemorrhagic anemia; D62 - Acute posthemorrhagic anemia (9) Septic shock Code(s): A41.9 - SEPSIS, UNSPECIFIED ORGANISM R65.21 - SEVERE SEPSIS WITH SEPTIC SHOCK (10) Acute respiratory failure Code(s): J96.00 - ACUTE RESPIRATORY FAILURE, UNSP W HYPOXIA OR HYPERCAPNIA Assessment/Plan (1) Pneumonia Assessment/Plan: -ID following and appreciate assistance -growing stenotrophomonas -continue IV bactrim per ID Code(s): N39.0 - URINARY TRACT INFECTION, SITE NOT SPECIFIED (2) Elevated troponins Assessment/Plan: -stress induced -cardiology monitoring (3) Septic shock Assessment/Plan: -resolved -continue IV antibiotics per ID (4) CHF (congestive heart failure) Assessment/Plan: -ECHO reviewed Code(s): I50.9 - HEART FAILURE, UNSPECIFIED Qualifiers: Congestive heart failure type: unspecified congestive heart failure type Congestive heart failure chronicity: chronic Qualified Code(s): I50.9 - Heart failure, unspecified (5) HTN (hypertension) Assessment/Plan: -continue diltiazem Code(s): I10 - ESSENTIAL (PRIMARY) HYPERTENSION (6) Hypothyroidism Assessment/Plan: -continue synthroid Code(s): E03.9 - HYPOTHYROIDISM, UNSPECIFIED (7) Respiratory failure -pulmonary following -weaning steroids as tolerated (8) Dementia -present and chronic (9) UTI -growing VRE -on linezolid per ID (10) FTT -PEG tube placed -tube feeds started -replace phosphorus -monitor hyponatremia (11) Tachycardia -cardiology following -continue diltiazem currently
--- NOTE | 2017-05-25 13:57 | PN ---
Progress Note, Physician History of Present Illness: no new issues stable - Current Medication List Current Medications: Active Medications Diltiazem HCl (Cardizem -) 30 mg PEG TID [facility] Last Admin: 05/25/17 06:23 Dose: 30 mg Enoxaparin Sodium (Lovenox -) 30 mg SQ DAILY [facility] Last Admin: 05/25/17 10:14 Dose: 30 mg Hydrocortisone Sodium Succinate (Solu-Cortef -) 25 mg IVPUSH Q12H [facility] Stop: 05/28/17 10:01 Trimethoprim/Sulfamethoxazole (100 mg/ Dextrose) 256.25 mls @ 256.25 mls/hr IVPB Q8H-IV [facility] Last Admin: 05/25/17 09:48 Dose: 256.25 mls/hr Linezolid (Zyvox 600 Mg Premix Bag (Restricted To Id) -) 300 mls @ 300 mls/hr IVPB BID [facility] PRN Reason: Protocol Last Admin: 05/24/17 23:14 Dose: 300 mls/hr Levothyroxine Sodium (Synthroid -) 88 mcg PEG DAILY@0700 [facility] Last Admin: 05/25/17 06:23 Dose: 88 mcg Nystatin (Mycostatin Cream -) 1 applic TP BID [facility] Last Admin: 05/25/17 10:14 Dose: 1 applic Pantoprazole Sodium (Protonix Packets For Oral Suspension -) 40 mg PEG DAILY [facility] Potassium Phos/Sodium Phos (Phos-Nak Packet -) 1 packet PEG TID [facility] Stop: 05/27/17 06:01 - Objective Vital Signs: Vital Signs Temperature 97.5 F L 05/25/17 13:50 Pulse Rate 126 H 05/25/17 13:50 Respiratory Rate 22 05/25/17 13:50 Blood Pressure 144/79 05/25/17 13:50 O2 Sat by Pulse Oximetry (%) 96 05/24/17 21:00 Constitutional: Yes: No Distress, Calm Cardiovascular: Yes: Regular Rate and Rhythm Respiratory: Yes: Regular, On Nasal O2, Poor Air Entry Gastrointestinal: Yes: Normal Bowel Sounds, Soft Musculoskeletal: Yes: WNL Extremities: Yes: Other Neurological: Yes: Alert Psychiatric: Yes: Other Labs: CBC, BMP 05/25/17 06:00 05/25/17 06:00 INR, PTT INR 1.11 (0.82-1.09) 05/12/17 01:35 Assessment/Plan Problem List - Problems (1) UTI (urinary tract infection) Code(s): N39.0 - URINARY TRACT INFECTION, SITE NOT SPECIFIED (2) Dementia Code(s): F03.90 - UNSPECIFIED DEMENTIA WITHOUT BEHAVIORAL DISTURBANCE (3) Pancytopenia Code(s): D61.818 - OTHER PANCYTOPENIA (4) CHF (congestive heart failure) Code(s): I50.9 - HEART FAILURE, UNSPECIFIED Qualifiers: Congestive heart failure type: unspecified congestive heart failure type Congestive heart failure chronicity: chronic Qualified Code(s): I50.9 - Heart failure, unspecified (5) HTN (hypertension) Code(s): I10 - ESSENTIAL (PRIMARY) HYPERTENSION (6) Hypothyroidism Code(s): E03.9 - HYPOTHYROIDISM, UNSPECIFIED Aspiration pneumonia Code(s): J69.0 - PNEUMONITIS DUE TO INHALATION OF FOOD AND VOMIT lactic acidosis plan continue nutrition abx to continue till the 11th rest as per primary team total duration of abx for 15 days
[2017-05-25] MEDS: NAPH,MB-DB/K PH,MBDB POWDER PACKET PEG SCH ×2 (14:32→23:04)
[2017-05-25] MEDS ORDERED: SODIUM CHLORIDE 500 ML IV SCH (18:30)
--- NOTE | 2017-05-25 19:56 | HOSP ---
Subjective - Review of Symptoms Subjective: Paged about hyponatremia of 129 on BMP for patient. Pt is unable to provide HPI or any verbal response. Pt moves eyes and is alert to me when walking by bedside. Pt has history of CHF and was originally admitted and diagnosed with sepsis syndrome 2/2 to UTI. Physical Examination Vital Signs: Vital Signs Temperature 98.2 F 05/25/17 18:39 Pulse Rate 118 H 05/25/17 18:39 Respiratory Rate 20 05/25/17 18:39 Blood Pressure 119/82 05/25/17 18:39 O2 Sat by Pulse Oximetry (%) 97 05/25/17 09:00 Findings/Remarks: Pt unable to follow commands. Gen: NAD, alert via eye movement when approached at bedside. HEENT: No JVD present, PERRL, EOMI. Pt does not open mouth when asked, anterior portion of mouth slightly dry mucosa Lungs: Coarse rhonchous sounds diffusely heard. Regular rate Cardiac: RRR, No murmur appreciated. S1 and S2 normal Extremities: Absent LE edema. LE cushioned with pillows and foam on pressure points Labs: CBC, BMP 05/25/17 06:00 05/25/17 06:00 Hospitalist Encounter Assessment: 1) Hyponatremia --Na 130 --Patient hypovolemic to euvolemic --Will start NS 500ml @50cc/hr --BMP @21:00 for reassement of sodium level --Signed out to night team to reassess, look for signs of hypervolemia, and BMP results Aurelio Fuentes DO - Internal Medicine, PGY-1
[2017-05-25 22:36] LABS: ANION GAP 9 (8-16); CO2 24 mmol/L (21-32); CREATININE 0.7 mg/dL (0.55-1.02); GLUCOSE,RANDOM 152 mg/dL (74-106)
[2017-05-25 22:43] LABS: CALCIUM 6.9 mg/dL (8.5-10.1)
[2017-05-26] MEDS: SULFAMETHOXAZOLE IVPB SCH ×3 (02:31→19:34)
[2017-05-26] MEDS: TRIMETHOPRIM IVPB SCH ×3 (02:31→19:34)
[2017-05-26] MEDS: WATER IVPB SCH ×3 (02:31→19:34)
[2017-05-26] MEDS: DEXTROSE 5% IVPB SCH ×3 (02:31→19:34)
--- NOTE | 2017-05-26 04:37 | PN ---
Progress Note, Physician Chief Complaint: Pt with eyes open; they appear to focus briefly on person in front of her, then shift rightward again. Does not follow commands. History of Present Illness: 82 year old white female with PMH of hypothyroidism, smoking disorder, and mild systolic CHF, with moderate TR, mild MR and AR, noted on 2017 ECHO; (s/p stent 2 years ago for suspected [place]) presenting with repeat falls, and altered mental status over the past few months. Patient is poor historian so her son at bedside was complementing the interview. According to him she has fallen 5 times in the last 3-4 months despite her use of a walker. She hit her head two weeks prior during one of the falls but did not seek attention. She did not lose consciousness during that fall. She describes the falls as "my legs giving out" which is corroborated by her son who witnessed one of the events. The son claims that she also has had difficulty keep track of time and with short term memory. Her memory issues are worsened at night. She lives at home alone and has had trouble with her ADLs. She is not on blood thinners. She has also had decreased food intake over the past few months although she has only lost a few pounds. She was seen by her PCP Dr. Mitchell earlier today and then sent to the ED for admission for altered mental status. Denies fevers, chills, nausea, vomiting, diarrhea, constipation, urinary symptoms, visual changes, headaches, presyncopal sensation, or palpitations. Her PCP is Dr. Mitchell. - Current Medication List Current Medications: Active Medications Diltiazem HCl (Cardizem -) 30 mg PEG TID [facility] Last Admin: 05/25/17 23:04 Dose: 30 mg Enoxaparin Sodium (Lovenox -) 30 mg SQ DAILY [facility] Last Admin: 05/25/17 10:14 Dose: 30 mg Hydrocortisone Sodium Succinate (Solu-Cortef -) 25 mg IVPUSH Q12H [facility] Stop: 05/28/17 10:01 Last Admin: 05/25/17 23:04 Dose: 25 mg Trimethoprim/Sulfamethoxazole (100 mg/ Dextrose) 256.25 mls @ 256.25 mls/hr IVPB Q8H-IV [facility] Last Admin: 05/26/17 02:31 Dose: 256.25 mls/hr Linezolid (Zyvox 600 Mg Premix Bag (Restricted To Id) -) 300 mls @ 300 mls/hr IVPB BID [facility] PRN Reason: Protocol Last Admin: 05/25/17 23:05 Dose: 300 mls/hr Sodium Chloride (Normal Saline -) 500 mls @ 50 mls/hr IV ASDIR [facility] Stop: 05/26/17 18:25 Last Admin: 05/25/17 19:46 Dose: 50 mls/hr Levothyroxine Sodium (Synthroid -) 88 mcg PEG DAILY@0700 [facility] Last Admin: 05/25/17 06:23 Dose: 88 mcg Nystatin (Mycostatin Cream -) 1 applic TP BID [facility] Last Admin: 05/25/17 23:04 Dose: 1 applic Pantoprazole Sodium (Protonix Packets For Oral Suspension -) 40 mg PEG DAILY [facility] Potassium Phos/Sodium Phos (Phos-Nak Packet -) 1 packet PEG TID [facility] Stop: 05/27/17 06:01 Last Admin: 05/25/17 23:04 Dose: 1 packet - Objective Vital Signs: Vital Signs Temperature 97.5 F L 05/26/17 02:00 Pulse Rate 123 H 05/26/17 02:00 Respiratory Rate 20 05/26/17 02:00 Blood Pressure 130/78 05/26/17 02:00 O2 Sat by Pulse Oximetry (%) 96 05/25/17 21:00 Constitutional: Yes: Thin Eyes: Yes: Other HENT: Yes: WNL Neck: Yes: WNL Cardiovascular: Yes: Murmur (2/6 systolic, LSB-->apex), S1, S2 Gastrointestinal: Yes: Soft, Other (PEG tube) ...Rectal Exam: Yes: Deferred Genitourinary: No: Anuria Musculoskeletal: Yes: Muscle Weakness Extremities: Yes: Cool Edema: No Peripheral Pulses WNL: No Peripheral Pulses: Left Doralis Pedis: 1+, Right Dorsalis Pedis: 1+ Neurological: Yes: Unresponsive, Weakness Psychiatric: Yes: Other (hx dementia) Labs: CBC, BMP 05/25/17 06:00 05/25/17 21:00 INR, PTT INR 1.11 (0.82-1.09) 05/12/17 01:35 Abnormal Lab Results 05/25/17 05/25/17 05/25/17 06:00 06:00 21:00 RBC 2.36 L Hgb 8.3 L Hct 23.6 L MCV 100.0 H MCH 35.3 H RDW 22.3 H Neutrophils % 87.9 H Monocytes % 2.7 L Sodium 129 L 127 L Chloride 94 L 94 L BUN 27 H 29 H Random Glucose 164 H 152 H Calcium 7.1 L 6.9 L* Phosphorus 2.4 L Problem List - Problems (1) Acute respiratory failure with hypoxia and hypercapnia Assessment/Plan: s/p extubation. Maintain hydration. F/u neurological w/u. Code(s): J96.01 - ACUTE RESPIRATORY FAILURE WITH HYPOXIA J96.02 - ACUTE RESPIRATORY FAILURE WITH HYPERCAPNIA (2) Anemia Code(s): D64.9 - ANEMIA, UNSPECIFIED Qualifiers: Qualified Code(s): D62 - Acute posthemorrhagic anemia; D62 - Acute posthemorrhagic anemia (3) Aspiration pneumonia Code(s): J69.0 - PNEUMONITIS DUE TO INHALATION OF FOOD AND VOMIT (4) Dementia Code(s): F03.90 - UNSPECIFIED DEMENTIA WITHOUT BEHAVIORAL DISTURBANCE (5) Fever Code(s): R50.9 - FEVER, UNSPECIFIED (6) Shock Code(s): R57.9 - SHOCK, UNSPECIFIED (7) HTN (hypertension) Code(s): I10 - ESSENTIAL (PRIMARY) HYPERTENSION (8) Hypothyroidism Assessment/Plan: On Synthroid. TSH low; free T4 mildly elevated. Code(s): E03.9 - HYPOTHYROIDISM, UNSPECIFIED (9) Osteoporosis Code(s): M81.0 - AGE-RELATED OSTEOPOROSIS W/O CURRENT PATHOLOGICAL FRACTURE (10) Smoking Code(s): F17.200 - NICOTINE DEPENDENCE, UNSPECIFIED, UNCOMPLICATED (11) Acute on chronic systolic (congestive) heart failure Assessment/Plan: BNP >11,000 ECHO: mildly reduced LVEF; mild MR; moderate TR; mild AR; trivial pericardial effusion. F/u BUN/Cr, electrolytes, Is and Os, weight. Treat hyponatremia. Avoid excessive dehydration. Code(s): I50.23 - ACUTE ON CHRONIC SYSTOLIC (CONGESTIVE) HEART FAILURE (12) Sinus tachycardia Assessment/Plan: likely multifactorial: periodic fever; anemia; septic shock;hypoxia; intubation ; ?pain. Maintain hydration. Code(s): R00.0 - TACHYCARDIA, UNSPECIFIED (13) Hypophosphatemia Assessment/Plan: replete, and f/u level. Code(s): E83.39 - OTHER DISORDERS OF PHOSPHORUS METABOLISM
[2017-05-26] MEDS ORDERED: FUROSEMIDE 40 MG/4 ML INJECTABLE VIAL IVPUSH ONE ×2 (06:30→13:31)
[2017-05-26] MEDS ORDERED: FUROSEMIDE 40 MG/4 ML INJECTABLE VIAL ONE ×2 (06:31→13:45)
--- NOTE | 2017-05-26 06:41 | RAPID ---
<Lorenzo Heredia - Last Filed: 05/26/17 07:19> Physical Examination Vital Signs: Vital Signs Temperature 98.3 F 05/26/17 06:00 Pulse Rate 121 H 05/26/17 06:00 Respiratory Rate 20 05/26/17 06:00 Blood Pressure 155/65 05/26/17 06:00 O2 Sat by Pulse Oximetry (%) 96 05/25/17 21:00 Findings/Remarks: Pt. Seen at bedside for hyoxia 02 85 on NC NRB-->BIPAP LAsix 40 IV Fluids Stopped - CXR/ABG - Rest per resident note Labs: CBC, BMP 05/25/17 06:00 05/25/17 21:00 <Yahaira Casas I - Last Filed: 05/26/17 08:03> Physical Examination Vital Signs: Vital Signs Temperature 98.3 F 05/26/17 06:00 Pulse Rate 121 H 05/26/17 06:00 Respiratory Rate 20 05/26/17 06:00 Blood Pressure 155/65 05/26/17 06:00 O2 Sat by Pulse Oximetry (%) 96 05/25/17 21:00 Labs: CBC, BMP 05/25/17 06:00 05/25/17 21:00 Rapid Response - Rapid Response Assessment: Called to see 82 y/o F w/PMH of hypothyroidism, HTN, CAD (s/p stent placement 2 years ago), former smoker (quit 2 mo ago) presented to the ER from PCP's office for AMS and frequent falls being mx for hyponatremianow sating in the 80s on 2L oxygen. PE: Gen: Awake, alert, in respiratory distress Abd: Normoactive bowel sounds Heart: S1, S2 Lungs: Creps bilaterally Extremities: Pedal edema Assessment: Likely Fluid overload Stop iv fluid iv lasix 40mg stat Cxr stat ABGs Repeat BMPs Elevate head of bed oxygen increased from 2L NC to 4L, was sating at 90% Bipap- repiratory Monitor vitals
[2017-05-26] MEDS: NAPH,MB-DB/K PH,MBDB POWDER PACKET PEG SCH ×3 (06:50→23:13)
[2017-05-26] MEDS: dilTIAZem HCL 30 MG TABLET (FP) PEG SCH ×3 (06:50→23:14)
[2017-05-26] MEDS: LEVOTHYROXINE NA 88 MCG TABLET (FP) PEG SCH (06:50)
[2017-05-26 07:36] LABS: ARTERIAL BLOOD GAS BASE EXCESS 2.2 meq/l (-2-2); ARTERIAL BLOOD GAS HCO3 25.9 meq/L (22-26); ARTERIAL BLOOD GAS pH 7.44 (7.35-7.45)
[2017-05-26 07:37] LABS: ALLENS TEST POSITIVE; ART PUNCT SITE RIGHT RADIAL
[2017-05-26 07:38] LABS: LPM/O2% 50; MECH. VENT. BIPAP; PT. ON O2? YES; TYPE OF O2 BIPAP
[2017-05-26 07:39] LABS: VENT RATE 18; VT/PRESS 16/6
[2017-05-26 08:15] LABS: BASOPHIL 0.3 % (0-2.0); EOSINOPHIL 0.5 % (0-4.5); MCH 36.2 pg (25.7-33.7); MCHC 35.2 g/dl (32.0-36.0); MEAN CELL VOLUME 102.7 fl (80-96); MEAN PLT VOLUME 8.3 fl (7.5-11.1); NEUTROPHILS 87.6 % (42.8-82.8); PLATELET COUNT 155 K/MM3 (134-434); RDW 22.6 % (11.6-15.6); WHITE BLOOD COUNT 5.8 K/mm3 (4.0-10.0)
[2017-05-26 08:45] LABS: ANION GAP 11 (8-16); CO2 25 mmol/L (21-32); GLUCOSE,RANDOM 206 mg/dL (74-106); MAGNESIUM 1.8 mg/dL (1.8-2.4)
[2017-05-26 08:51] LABS: CREATININE 0.8 mg/dL (0.55-1.02); PHOSPHOROUS 3.2 mg/dL (2.5-4.9)
[2017-05-26] MEDS ORDERED: PANTOPRAZOLE SOD 40 MG SUSPENSION PACKET PEG SCH (10:00)
--- NOTE | 2017-05-26 10:54 | PN ---
Progress Note, Physician History of Present Illness: This is a 82 yo woman PMH: dementia, hypothyroid, HTN, active tobacco, CAD s/p sent, CHF presenting to ICU after [facility] [employer] for hypoxic respiratory failure, SVT (HR 180s) and shock. Briefly, patient initially presented for frequent falls and altered mental status with overall physical and cognitive decline over the last 6 months prior to admission. CT head: w/ central atrophy and mild microvascular ischemic gliosis. Labs significant for hypothyroid, leukopenia and pyuria, she was started on ceftriaxone. Neurology was consulted. Endocrine consulted. Mental status had some improvement while on the floor. Speech and swallow eval done c/ f aspiration. ABX were switch to zosyn given increased secretions and c/f pneumonia. Plans made for potential PEG placement. Patient continued to have waxing and waning mental status. Patient had notable right facial droop and NCHCT done w/o acute pathology. She completed a course of ABX. GI was consulted for c/f GIB. Heme also consulted given anemia and leukopenia and w/u sent: flow- -0.2% blasts, clonal B cells questionable nonspecific immunophenotype. On day of ICU admission patient had witnessed aspiration event. [facility] [employer] was called in PM for hypoxia and tachycardia. Patient transferred to ICU for hypoxic respiratory failure. Patient intubated. ABG 7.3/54/242 (ACVC: 20/400/100 +5). Patient given adenosine for SVT w/ underlying sinus rhythm. Patient continued to have RVR and was given lopressor 5mg x1 w/ HR improved to 120s. Family called but were unavailable. - History Source - Current Medication List Current Medications: Active Medications Diltiazem HCl (Cardizem -) 30 mg PEG TID [facility] Last Admin: 05/26/17 06:50 Dose: 30 mg Enoxaparin Sodium (Lovenox -) 30 mg SQ DAILY [facility] Last Admin: 05/25/17 10:14 Dose: 30 mg Hydrocortisone Sodium Succinate (Solu-Cortef -) 25 mg IVPUSH Q12H [facility] Stop: 05/28/17 10: Last Admin: 05/25/17 23:04 Dose: 25 mg Trimethoprim/Sulfamethoxazole (100 mg/ Dextrose) 256.25 mls @ 256.25 mls/hr IVPB Q8H-IV [facility] Last Admin: 05/26/17 02:31 Dose: 256.25 mls/hr Linezolid (Zyvox 600 Mg Premix Bag (Restricted To Id) -) 300 mls @ 300 mls/hr IVPB BID [facility] PRN Reason: Protocol Last Admin: 05/25/17 23:05 Dose: 300 mls/hr Sodium Chloride (Normal Saline -) 500 mls @ 50 mls/hr IV ASDIR [facility] Stop: 05/26/17 18:25 Last Admin: 05/25/17 19:46 Dose: 50 mls/hr Levothyroxine Sodium (Synthroid -) 88 mcg PEG DAILY@0700 [facility] Last Admin: 05/26/17 06:50 Dose: 88 mcg Nystatin (Mycostatin Cream -) 1 applic TP BID [facility] Last Admin: 05/25/17 23:04 Dose: 1 applic Pantoprazole Sodium (Protonix Packets For Oral Suspension -) 40 mg PEG DAILY [facility] Potassium Phos/Sodium Phos (Phos-Nak Packet -) 1 packet PEG TID [facility] Stop: 05/27/17 06:01 Last Admin: 05/26/17 06:50 Dose: 1 packet - Objective Vital Signs: Vital Signs Temperature 98.3 F 05/26/17 06:00 Pulse Rate 121 H 05/26/17 06:00 Respiratory Rate 20 05/26/17 06:00 Blood Pressure 155/65 05/26/17 06:00 O2 Sat by Pulse Oximetry (%) 96 05/25/17 21:00 Eyes: Yes: WNL, Conjunctiva Clear, EOM Intact HENT: Yes: WNL, Atraumatic, Normocephalic Neck: Yes: WNL, Supple, Trachea Midline Cardiovascular: Yes: WNL, Regular Rate and Rhythm Respiratory: Yes: WNL, Regular, CTA Bilaterally Gastrointestinal: Yes: WNL, Normal Bowel Sounds Genitourinary: Yes: WNL Musculoskeletal: Yes: WNL Extremities: Yes: WNL Edema: No Integumentary: Yes: WNL Neurological: Yes: WNL, Alert, Oriented ...Motor Strength: WNL Psychiatric: Yes: WNL Labs: CBC, BMP 05/26/17 06:15 05/26/17 06:15 INR, PTT INR 1.11 (0.82-1.09) 05/12/17 01:35 Problem List - Problems (1) Acute respiratory failure with hypoxia and hypercapnia Code(s): J96.01 - ACUTE RESPIRATORY FAILURE WITH HYPOXIA J96.02 - ACUTE RESPIRATORY FAILURE WITH HYPERCAPNIA (2) Altered mental status, unspecified Code(s): R41.82 - ALTERED MENTAL STATUS, UNSPECIFIED (3) Anemia Code(s): D64.9 - ANEMIA, UNSPECIFIED Qualifiers: Qualified Code(s): D62 - Acute posthemorrhagic anemia; D62 - Acute posthemorrhagic anemia (4) Aspiration pneumonia Code(s): J69.0 - PNEUMONITIS DUE TO INHALATION OF FOOD AND VOMIT (5) Dementia Code(s): F03.90 - UNSPECIFIED DEMENTIA WITHOUT BEHAVIORAL DISTURBANCE (6) Fever Code(s): R50.9 - FEVER, UNSPECIFIED (7) Pancytopenia Code(s): D61.818 - OTHER PANCYTOPENIA (8) Shock Code(s): R57.9 - SHOCK, UNSPECIFIED (9) UTI (urinary tract infection) Code(s): N39.0 - URINARY TRACT INFECTION, SITE NOT SPECIFIED (10) Aortic stenosis Code(s): I35.0 - NONRHEUMATIC AORTIC (VALVE) STENOSIS (11) CHF (congestive heart failure) Code(s): I50.9 - HEART FAILURE, UNSPECIFIED Qualifiers: Qualified Code(s): I50.9 - Heart failure, unspecified; I50.9 - Heart failure, unspecified; I50.9 - Heart failure, unspecified; I50.9 - Heart failure , unspecified (12) HTN (hypertension) Code(s): I10 - ESSENTIAL (PRIMARY) HYPERTENSION (13) Hypothyroidism Code(s): E03.9 - HYPOTHYROIDISM, UNSPECIFIED (14) Macrocytosis Code(s): D75.89 - OTHER SPECIFIED DISEASES OF BLOOD AND BLOOD-FORMING ORGANS (15) Osteoporosis Code(s): M81.0 - AGE-RELATED OSTEOPOROSIS W/O CURRENT PATHOLOGICAL FRACTURE (16) Paroxysmal SVT (supraventricular tachycardia) Code(s): I47.1 - SUPRAVENTRICULAR TACHYCARDIA (17) Smoking Code(s): F17.200 - NICOTINE DEPENDENCE, UNSPECIFIED, UNCOMPLICATED (18) Smoking addiction Code(s): F17.200 - NICOTINE DEPENDENCE, UNSPECIFIED, UNCOMPLICATED Assessment/Plan - Problems (1) Acute respiratory failure with hypoxia and hypercapnia Assessment/Plan: s/p extubation. Maintain hydration. F/u neurological w/u. Code(s): J96.01 - ACUTE RESPIRATORY FAILURE WITH HYPOXIA J96.02 - ACUTE RESPIRATORY FAILURE WITH HYPERCAPNIA (2) Anemia Code(s): D64.9 - ANEMIA, UNSPECIFIED Qualifiers: Qualified Code(s): D62 - Acute posthemorrhagic anemia; D62 - Acute posthemorrhagic anemia (3) Aspiration pneumonia Code(s): J69.0 - PNEUMONITIS DUE TO INHALATION OF FOOD AND VOMIT (4) Dementia Code(s): F03.90 - UNSPECIFIED DEMENTIA WITHOUT BEHAVIORAL DISTURBANCE (5) Fever Code(s): R50.9 - FEVER, UNSPECIFIED (6) Shock Code(s): R57.9 - SHOCK, UNSPECIFIED (7) HTN (hypertension) Code(s): I10 - ESSENTIAL (PRIMARY) HYPERTENSION (8) Hypothyroidism Assessment/Plan: On Synthroid. TSH low; free T4 mildly elevated. Code(s): E03.9 - HYPOTHYROIDISM, UNSPECIFIED (9) Osteoporosis Code(s): M81.0 - AGE-RELATED OSTEOPOROSIS W/O CURRENT PATHOLOGICAL FRACTURE (10) Smoking Code(s): F17.200 - NICOTINE DEPENDENCE, UNSPECIFIED, UNCOMPLICATED (11) Acute on chronic systolic (congestive) heart failure Assessment/Plan: BNP >11,000 ECHO: mildly reduced LVEF; mild MR; moderate TR; mild AR; trivial pericardial effusion. F/u BUN/Cr, electrolytes, Is and Os, weight. Treat hyponatremia. Avoid excessive dehydration. Code(s): I50.23 - ACUTE ON CHRONIC SYSTOLIC (CONGESTIVE) HEART FAILURE (12) Sinus tachycardia Assessment/Plan: likely multifactorial: periodic fever; anemia; septic shock;hypoxia; intubation ; ?pain. Maintain hydration. Code(s): R00.0 - TACHYCARDIA, UNSPECIFIED (13) Hypophosphatemia Assessment/Plan: replete, and f/u level. Code(s): E83.39 - OTHER DISORDERS OF PHOSPHORUS METABOLISM
[2017-05-26] MEDS: ENOXAPARIN NA (PORCINE) 30 MG/0.3 ML DISP.SYRIN SQ SCH (11:13)
[2017-05-26] MEDS: HYDROCORTISONE SOD SUCCINATE 100 MG/2 ML VIAL IVPUSH SCH ×2 (11:13→23:13)
[2017-05-26] MEDS: NYSTATIN 100,000 UNIT/GM TOPICAL CREAM 15 GM TUBE TP SCH ×2 (11:14→23:14)
--- NOTE | 2017-05-26 12:12 | PN ---
Progress Note, Physician History of Present Illness: events noted rapid response called now on bipap - Current Medication List Current Medications: Active Medications Diltiazem HCl (Cardizem -) 30 mg PEG TID [facility] Last Admin: 05/26/17 06:50 Dose: 30 mg Enoxaparin Sodium (Lovenox -) 30 mg SQ DAILY [facility] Last Admin: 05/26/17 11:13 Dose: 30 mg Hydrocortisone Sodium Succinate (Solu-Cortef -) 25 mg IVPUSH Q12H [facility] Stop: 05/28/17 10:01 Last Admin: 05/26/17 11:13 Dose: 25 mg Trimethoprim/Sulfamethoxazole (100 mg/ Dextrose) 256.25 mls @ 256.25 mls/hr IVPB Q8H-IV [facility] Last Admin: 05/26/17 02:31 Dose: 256.25 mls/hr Linezolid (Zyvox 600 Mg Premix Bag (Restricted To Id) -) 300 mls @ 300 mls/hr IVPB BID [facility] PRN Reason: Protocol Last Admin: 05/25/17 23:05 Dose: 300 mls/hr Sodium Chloride (Normal Saline -) 500 mls @ 50 mls/hr IV ASDIR [facility] Stop: 05/26/17 18:25 Last Admin: 05/25/17 19:46 Dose: 50 mls/hr Levothyroxine Sodium (Synthroid -) 88 mcg PEG DAILY@0700 [facility] Last Admin: 05/26/17 06:50 Dose: 88 mcg Nystatin (Mycostatin Cream -) 1 applic TP BID [facility] Last Admin: 05/26/17 11:14 Dose: 1 applic Pantoprazole Sodium (Protonix Packets For Oral Suspension -) 40 mg PEG DAILY [facility] Last Admin: 05/26/17 11:13 Dose: 40 mg Potassium Phos/Sodium Phos (Phos-Nak Packet -) 1 packet PEG TID [facility] Stop: 05/27/17 06:01 Last Admin: 05/26/17 06:50 Dose: 1 packet - Objective Vital Signs: Vital Signs Temperature 98.3 F 05/26/17 06:00 Pulse Rate 106 H 05/26/17 11:17 Respiratory Rate 20 05/26/17 11:17 Blood Pressure 120/65 05/26/17 11:17 O2 Sat by Pulse Oximetry (%) 97 05/26/17 10:30 Constitutional: Yes: No Distress, Calm Cardiovascular: Yes: Regular Rate and Rhythm Respiratory: Yes: On BiPap, Other Gastrointestinal: Yes: Soft, Other (peg in place) Musculoskeletal: Yes: Other Extremities: Yes: Other Edema: LLE: Trace, RLE: Trace Neurological: Yes: Alert, Other Psychiatric: Yes: Other Labs: CBC, BMP 05/26/17 06:15 05/26/17 06:15 INR, PTT INR 1.11 (0.82-1.09) 05/12/17 01:35 Assessment/Plan Problem List - Problems (1) UTI (urinary tract infection) Code(s): N39.0 - URINARY TRACT INFECTION, SITE NOT SPECIFIED (2) Dementia Code(s): F03.90 - UNSPECIFIED DEMENTIA WITHOUT BEHAVIORAL DISTURBANCE (3) Pancytopenia Code(s): D61.818 - OTHER PANCYTOPENIA (4) CHF (congestive heart failure) Code(s): I50.9 - HEART FAILURE, UNSPECIFIED Qualifiers: Congestive heart failure type: unspecified congestive heart failure type Congestive heart failure chronicity: chronic Qualified Code(s): I50.9 - Heart failure, unspecified (5) HTN (hypertension) Code(s): I10 - ESSENTIAL (PRIMARY) HYPERTENSION (6) Hypothyroidism Code(s): E03.9 - HYPOTHYROIDISM, UNSPECIFIED Aspiration pneumonia Code(s): J69.0 - PNEUMONITIS DUE TO INHALATION OF FOOD AND VOMIT lactic acidosis plan continue nutrition abx to continue till the 11th rest as per primary team total duration of abx for 15 days close watch on the patient
--- NOTE | 2017-05-26 12:47 | PN ---
Progress Note (short form) - Note Progress Note: PULMONARY Now on bipap post hypoxic episode Gen: appears chronically ill/roper Heart: tachycardic, regular Lung: scattered rhonchi, wheezes Abd: soft, nontender, restal tube,peg Ext: +UE edema labs/meds/notes/images reviewed A/P s/p Acute Respiratory Failure Volume overload Pneumonia UTI s/p Septic Shock Dementia - nippv for resp failure - trial of diuretics - antibiotics per ID - aspiration precautions - taper off steroids - O2 to keep SpO2 >90% - DVT prophylaxis - prognosis guarded - consider palliative care Toni BUNDY MD
[2017-05-26 13:58] LABS: ARTERIAL BLD GAS O2 SATURATION 99.6 % (90-98.9); ARTERIAL BLOOD GAS BASE EXCESS -5.3 meq/l (-2-2); ARTERIAL BLOOD GAS HCO3 18.8 meq/L (22-26); ARTERIAL BLOOD GAS pH 7.37 (7.35-7.45)
[2017-05-26 14:01] LABS: ALLENS TEST POSITIVE; LPM/O2% 50; PT. ON O2? YES
[2017-05-26 14:02] LABS: MECH. VENT. BIPAP; TYPE OF O2 BIPAP
[2017-05-26 14:03] LABS: VENT RATE 18; VT/PRESS 16/6
[2017-05-26] MEDS ORDERED: LORazepam 2 MG/ML SDV VIAL ONE ×2 (14:13→14:22)
[2017-05-26] MEDS ORDERED: PROPOFOL 200 MG/20 ML VIAL IVPUSH ONE (14:19)
[2017-05-26] MEDS: LINEZOLID 600 MG PREMIX BAG 300 ML IVPB SCH ×2 (14:29→23:13)
[2017-05-26] MEDS: PROPOFOL 100 ML IVPB SCH (14:30)
[2017-05-26 14:41] LABS: TROPONIN I 4.09 ng/ml (0.00-0.05)
[2017-05-26 14:47] LABS: ART PUNCT SITE RIGHT RADIAL
--- NOTE | 2017-05-26 15:25 | PN ---
Progress Note, Physician Chief Complaint: Unable to obtain. When first seeing the patient was not in distress, however called back approximately 2 hours later and patient was tachypneic and tachycardic. Transferred to the ICU - Current Medication List Current Medications: Active Medications Diltiazem HCl (Cardizem -) 30 mg PEG TID [facility] Last Admin: 05/26/17 14:30 Dose: Not Given Enoxaparin Sodium (Lovenox -) 30 mg SQ DAILY [facility] Last Admin: 05/26/17 11:13 Dose: 30 mg Hydrocortisone Sodium Succinate (Solu-Cortef -) 25 mg IVPUSH Q12H [facility] Stop: 05/28/17 10:01 Last Admin: 05/26/17 11:13 Dose: 25 mg Trimethoprim/Sulfamethoxazole (100 mg/ Dextrose) 256.25 mls @ 256.25 mls/hr IVPB Q8H-IV [facility] Last Admin: 05/26/17 12:24 Dose: 256.25 mls/hr Linezolid (Zyvox 600 Mg Premix Bag (Restricted To Id) -) 300 mls @ 300 mls/hr IVPB BID [facility] PRN Reason: Protocol Last Admin: 05/26/17 14:29 Dose: Not Given Sodium Chloride (Normal Saline -) 500 mls @ 50 mls/hr IV ASDIR [facility] Stop: 05/26/17 18:25 Last Admin: 05/25/17 19:46 Dose: 50 mls/hr Propofol (Diprivan -) 100 mls @ 1.63 mls/hr IVPB TITR [facility]; 5 MCG/KG/MIN PRN Reason: Protocol Levothyroxine Sodium (Synthroid -) 88 mcg PEG DAILY@0700 [facility] Last Admin: 05/26/17 06:50 Dose: 88 mcg Nystatin (Mycostatin Cream -) 1 applic TP BID [facility] Last Admin: 05/26/17 11:14 Dose: 1 applic Pantoprazole Sodium (Protonix Packets For Oral Suspension -) 40 mg PEG DAILY [facility] Last Admin: 05/26/17 11:13 Dose: 40 mg Potassium Phos/Sodium Phos (Phos-Nak Packet -) 1 packet PEG TID [facility] Stop: 05/27/17 06:01 Last Admin: 05/26/17 14:30 Dose: Not Given - Objective Vital Signs: Vital Signs Temperature 36.8 C 05/26/17 06:00 Pulse Rate 106 H 05/26/17 11:17 Respiratory Rate 20 05/26/17 11:17 Blood Pressure 120/65 05/26/17 11:17 O2 Sat by Pulse Oximetry (%) 98 05/26/17 14:13 Constitutional: Yes: Severe Distress Cardiovascular: Yes: Tachycardia. No: Gallop, Murmur, Rub Respiratory: Yes: On BiPap, Rhonchi, Tachypnea. No: Regular, CTA Bilaterally, Rales, Wheezes Gastrointestinal: Yes: Normal Bowel Sounds, Soft. No: Distention, Tenderness Extremities: Yes: WNL Edema: No Labs: CBC, BMP 05/26/17 06:15 05/26/17 06:15 INR, PTT INR 1.11 (0.82-1.09) 05/12/17 01:35 Problem List - Problems (1) UTI (urinary tract infection) Code(s): N39.0 - URINARY TRACT INFECTION, SITE NOT SPECIFIED (2) Dementia Code(s): F03.90 - UNSPECIFIED DEMENTIA WITHOUT BEHAVIORAL DISTURBANCE (3) Pancytopenia Code(s): D61.818 - OTHER PANCYTOPENIA (4) CHF (congestive heart failure) Code(s): I50.9 - HEART FAILURE, UNSPECIFIED Qualifiers: Qualified Code(s): I50.9 - Heart failure, unspecified; I50.9 - Heart failure, unspecified; I50.9 - Heart failure, unspecified; I50.9 - Heart failure , unspecified (5) HTN (hypertension) Code(s): I10 - ESSENTIAL (PRIMARY) HYPERTENSION (6) Hypothyroidism Code(s): E03.9 - HYPOTHYROIDISM, UNSPECIFIED (7) Aspiration pneumonia Code(s): J69.0 - PNEUMONITIS DUE TO INHALATION OF FOOD AND VOMIT (8) Anemia Code(s): D64.9 - ANEMIA, UNSPECIFIED Qualifiers: Qualified Code(s): D62 - Acute posthemorrhagic anemia; D62 - Acute posthemorrhagic anemia (9) Septic shock Code(s): A41.9 - SEPSIS, UNSPECIFIED ORGANISM R65.21 - SEVERE SEPSIS WITH SEPTIC SHOCK (10) Acute respiratory failure Code(s): J96.00 - ACUTE RESPIRATORY FAILURE, UNSP W HYPOXIA OR HYPERCAPNIA Assessment/Plan (1) Acute respiratory failure -patient tachycpneic and tachycardic -transferred to the ICU -intubated -case d/w pulmonary (2) Elevated troponin -cardiac enzymes checked, troponin now 4 -cardiology to be made aware (3) Seizure -spoke with RN in the ICU, began seizing on way down -given ativan but recurred, intubated and placed on sedation (4) CHF exacerbation -chest x-ray showing fluid overload -given lasix -monitor I/Os (5) Pneumonia -previous cultures growing stenotrophomonas -ID following (6) UTI -continue linezolid per ID (7) Hyponatremia -secondary to fluid overload -diurese (8) Hypothyroid -check TSH and FT4 47 minutes spent in critical care of this patient
--- NOTE | 2017-05-26 15:40 | PROC ---
<Elia Morrison - Last Filed: 05/26/17 15:40> Intubation - Intubation Reason for Intubation: Airway Protection Time of Intubation: 15:00 Intubation Method: orotracheal Blade used: Mac Tube Size (cm): 7.5 Tube position @ lip (cm): 22 Tube position confirmed by: CO2 detector, Breath sounds Breath Sounds after Intubation: equal Post Intubation Xray: Yes <Oscar Lopez MD - Last Filed: 05/26/17 15:56> Procedure Note Procedure: I supervised and was present during the entire procedure Oscar Lopez MD
[2017-05-26] MEDS ORDERED: HEPARIN NA (PORCINE) 5,000 UNITS/ML 1ML VIAL IVPUSH PRN ×2 (17:46)
[2017-05-26] MEDS ORDERED: ASPIRIN 325 MG ENTERIC COATED TABLET (FP) PO ONE (17:49)
--- NOTE | 2017-05-26 17:55 | PN ---
Progress Note (short form) - Note Progress Note: -Troponin 4.09 at 1:40 pm -ECG showing NSR with t wave inversions in leads V2-V5 -cannot rule out septal infarct -trend troponin -asa 325mh po once -start heparin drip -cardio on board
[2017-05-26] MEDS ORDERED: HEPARIN INFUSION - 500 ML IVPB SCH (18:00)
[2017-05-26 18:16] LABS: ARTERIAL BLOOD GAS BASE EXCESS 5.8 meq/l (-2-2); ARTERIAL BLOOD GAS pH 7.52 (7.35-7.45)
[2017-05-26 18:19] LABS: ALLENS TEST POSITIVE; ART PUNCT SITE LEFT RADIAL
[2017-05-26 18:20] LABS: LPM/O2% 50%; PT. ON O2? YES
[2017-05-26 18:21] LABS: MECH. VENT. YES; TYPE OF O2 VENTILATOR; VENT RATE 14; VT/PRESS 450
--- NOTE | 2017-05-26 22:19 | PROC ---
Procedure Note Procedure: Right internal jugular central line placement Central Line Insertion Indication: Poor Venous Access, Vasopressor Risks and Benefits Explained: No (not alert /oriented) Consent on Chart: Yes (son consented) Central Line: Triple Lumen Catheter Anesthesia: 1% Lidocaine Sterile Technique: Yes Ultrasound Guided Assistance: Yes Position: Right Internal Jugular Post Insertion: Yes: Bilateral Breath Sounds, Chest X-Ray Ordered Sterile Dressing Applied: Yes
[2017-05-26] MEDS ORDERED: DEXTROSE 5% IV SCH (23:00)
[2017-05-26] MEDS ORDERED: NOREPINEPHRINE BITARTRATE IV SCH (23:00)
[2017-05-26] MEDS ORDERED: WATER IV SCH (23:00)
--- NOTE | 2017-05-26 23:55 | HOSP ---
Subjective - Review of Symptoms Events since last encounter: Hospitalist Encounter Notified by primary RN that the she was unable to flush the patient's PEG Arrived to bedside, patient is - unresponsive and intubated. Attempt to flush PEG, unsuccessful Order GI consult for am- clogged PEG Physical Examination Vital Signs: Vital Signs Temperature 98.8 F 05/26/17 22:00 Pulse Rate 75 05/26/17 22:00 Respiratory Rate 20 05/26/17 22:00 Blood Pressure 92/56 05/26/17 22:00 O2 Sat by Pulse Oximetry (%) 100 05/26/17 15:00 Constitutional: Yes: Other (intubated, unresponsive) Cardiovascular: Yes: Tachycardia, S1, S2 Respiratory: Yes: Intubated Gastrointestinal: Yes: Other (PEG) Neurological: Yes: Unresponsive Labs: CBC, BMP 05/26/17 06:15 05/26/17 06:15
[2017-05-27] MEDS ORDERED: NOREPINEPHRINE BITARTRATE 4 MG/4 ML ML IV ONE (02:08)
[2017-05-27] MEDS ORDERED: NOREPINEPHRINE BITARTRATE 8,000 MCG in DEXTROSE 5%-WATER - 492 ML IV SCH (02:15)
[2017-05-27] MEDS: WATER IVPB SCH ×3 (02:27→17:23)
[2017-05-27] MEDS: TRIMETHOPRIM IVPB SCH ×3 (02:27→17:23)
[2017-05-27] MEDS: DEXTROSE 5% IVPB SCH ×3 (02:27→17:23)
[2017-05-27] MEDS: SULFAMETHOXAZOLE IVPB SCH ×3 (02:27→17:23)
[2017-05-27] MEDS: NAPH,MB-DB/K PH,MBDB POWDER PACKET PEG SCH (06:46)
[2017-05-27] MEDS: dilTIAZem HCL 30 MG TABLET (FP) PEG SCH ×3 (06:46→22:17)
[2017-05-27] MEDS ORDERED: LEVOTHYROXINE NA 88 MCG TABLET (FP) PEG SCH (07:00)
[2017-05-27 07:09] LABS: BASOPHIL 0.2 % (0-2.0); EOSINOPHIL 0.3 % (0-4.5); MCH 35.8 pg (25.7-33.7); MCHC 35.7 g/dl (32.0-36.0); MEAN CELL VOLUME 100.5 fl (80-96); MEAN PLT VOLUME 7.8 fl (7.5-11.1); NEUTROPHILS 78.4 % (42.8-82.8); PLATELET COUNT 150 K/MM3 (134-434); RDW 21.6 % (11.6-15.6); WHITE BLOOD COUNT 4.6 K/mm3 (4.0-10.0)
[2017-05-27 07:48] LABS: ALBUMIN 1.8 g/dl (3.4-5.0); ANION GAP 8 (8-16); BILIRUBIN,TOTAL 0.4 mg/dL (0.2-1.0); CALCIUM 7.1 mg/dL (8.5-10.1); CO2 28 mmol/L (21-32); CREATININE 0.7 mg/dL (0.55-1.02); GLUCOSE,RANDOM 89 mg/dL (74-106); MAGNESIUM 1.8 mg/dL (1.8-2.4); PHOSPHOROUS 3.4 mg/dL (2.5-4.9); SGOT/AST 27 U/L (15-37); SGPT/ALT 44 U/L (12-78); TOT PROT 4.2 g/dl (6.4-8.2)
[2017-05-27 08:01] LABS: ALK PHOS 206 U/L (45-117); FREE T4 0.53 ng/dl (0.76-1.46)
--- NOTE | 2017-05-27 08:26 | PN ---
Physical Exam: SUBJECTIVE: Patient seen and examined at bedside. Pt intubated and sedated. Opens eyes, but does not track or show any indication of recognition. OBJECTIVE: Vital Signs Period Temp Pulse Resp BP Sys/Damon Pulse Ox Last 24 Hr 98.2 F-98.8 F 75-106 14-23 80-123/43-65 97-100 GENERAL: The patient is sedated, intubated, and in no apparent distress. HEAD: Normal with no signs of trauma. EYES: sclera anicteric, conjunctiva clear. No ptosis. ENT: oropharynx clear without exudates, moist mucous membranes. ET tube in place at 22cm NECK: Trachea midline, full range of motion, supple. LUNGS: Breath sounds equal, no wheezes, no crackles, no accessory muscle use. HEART: iregular rhythm, S1, S2 without murmur, rub or gallop. ABDOMEN: Soft, nondistended, normoactive bowel sounds, no guarding, no rebound, no hepatosplenomegaly, no masses. EXTREMITIES: 1+ pulses, warm, well-perfused, no edema. NEUROLOGICAL: not tested. Pt intubated PSYCH: Intubated SKIN: b/l heel ulcers. chronic Laboratory Results - last 24 hr 05/26/17 05/26/17 05/26/17 06:15 06:15 13:37 WBC 5.8 RBC 2.10 L Hgb 7.6 L Hct 21.6 L MCV 102.7 H MCH 36.2 H MCHC 35.2 RDW 22.6 H Plt Count 155 MPV 8.3 Neutrophils % 87.6 H Lymphocytes % 8.2 Monocytes % 3.4 L Eosinophils % 0.5 D Basophils % 0.3 Puncture Site Right radial ABG pH 7.37 ABG pCO2 at Pt Temp 33.3 L ABG pO2 at Pt Temp 176.0 H* D ABG HCO3 18.8 L ABG O2 Sat (Measured) 99.6 H* ABG O2 Content 12.2 L ABG Base Excess -5.3 L Demario Test Positive O2 Delivery Device Bipap Oxygen Flow Rate 50 Vent Mode S/t Vent Rate 18 Mechanical Rate Bipap PEEP 0.0 Pressure Support Vent 16/6 Sodium 127 L Potassium 4.4 Chloride 91 L Carbon Dioxide 25 Anion Gap 11 BUN 30 H Creatinine 0.8 POC Glucometer Random Glucose 206 H D Calcium 7.0 L Phosphorus 3.2 D Magnesium 1.8 Creatine Kinase Troponin I 05/26/17 05/26/17 05/26/17 13:39 13:40 18:05 WBC RBC Hgb Hct MCV MCH MCHC RDW Plt Count MPV Neutrophils % Lymphocytes % Monocytes % Eosinophils % Basophils % Puncture Site Left radial ABG pH 7.52 H D ABG pCO2 at Pt Temp 36.1 ABG pO2 at Pt Temp 151.0 H* D ABG HCO3 29.0 H ABG O2 Sat (Measured) 100.0 H* ABG O2 Content 8.4 L* ABG Base Excess 5.8 H Demario Test Positive O2 Delivery Device Ventilator Oxygen Flow Rate 50% Vent Mode A/c Vent Rate 14 Mechanical Rate Yes PEEP 5.0 Pressure Support Vent 450 Sodium Potassium Chloride Carbon Dioxide Anion Gap BUN Creatinine POC Glucometer 127 Random Glucose Calcium Phosphorus Magnesium Creatine Kinase 87 Troponin I 4.09 H* 05/26/17 05/27/17 23:30 05:30 WBC 4.6 RBC 1.57 L D Hgb 5.6 L* D Hct 15.8 L D MCV 100.5 H MCH 35.8 H MCHC 35.7 RDW 21.6 H Plt Count 150 MPV 7.8 Neutrophils % 78.4 Lymphocytes % 16.4 D Monocytes % 4.7 Eosinophils % 0.3 Basophils % 0.2 Puncture Site ABG pH ABG pCO2 at Pt Temp ABG pO2 at Pt Temp ABG HCO3 ABG O2 Sat (Measured) ABG O2 Content ABG Base Excess Demario Test O2 Delivery Device Oxygen Flow Rate Vent Mode Vent Rate Mechanical Rate PEEP Pressure Support Vent Sodium Potassium Chloride Carbon Dioxide Anion Gap BUN Creatinine POC Glucometer Random Glucose Calcium Phosphorus Magnesium Creatine Kinase Troponin I 3.14 H* Active Medications Generic Name Dose Route Start Last Admin Trade Name Freq PRN Reason Stop Dose Admin Atorvastatin Calcium 20 mg 05/27/17 22:00 Lipitor - PO HS JOCELYNE Diltiazem HCl 30 mg 05/26/17 22:00 05/27/17 06:46 Cardizem - PEG Not Given TID JOCELYNE Hydrocortisone Sodium Succinate 25 mg 05/26/17 22:00 05/26/17 23:13 Solu-Cortef - IVPUSH 05/29/17 10:01 25 mg BID JOCELYNE Administration Propofol 100 mls @ 1.63 mls/hr 05/26/17 14:30 05/26/17 14:30 Diprivan - IVPB 1.63 mls/hr TITR JOCELYNE Administration Protocol 5 MCG/KG/MIN Trimethoprim/Sulfamethoxazole 256.25 mls @ 256.25 mls/hr 05/27/17 02:00 02:27 100 mg/ Dextrose IVPB Not Given Q8H-IV JOCELYNE Linezolid 300 mls @ 300 mls/hr 05/26/17 22:00 05/26/17 23:13 Zyvox 600 Mg Premix Bag (Restricted To Id) - IVPB 300 mls/hr BID JOCELYNE Administration Protocol Levothyroxine Sodium 88 mcg 05/27/17 07:00 05/27/17 06:46 Synthroid - PEG Not Given DAILY@0700 JOCELYNE Nystatin 1 applic 05/26/17 22:00 05/26/17 23:14 Mycostatin Cream - TP 1 applic BID JOCELYNE Administration Pantoprazole Sodium 40 mg 05/27/17 10:00 Protonix Packets For Oral Suspension - PEG DAILY JOCELYNE ASSESSMENT/PLAN: 82 F w/ PMH hypothyroidism, HTN, CAD (s/p stent placement 2 years ago), former smoker (quit 2 mo ago) presented to the ER from PCP's office for AMS and frequent falls. Pt has had a long and arduous hospital course and is now admitted to ICU following a rapid response. Pt was found to be in acute hypoxic respiratory failure and was transferred to ICU. En route, she began seizing, and once in the unit, she was intubated. Pt is now intubated and sedated on pressors. #acute hypoxic resp failure -pt intubated and sedated -decrease FiO2 to 40 #anemia #likely CVA -CT done for seizures incidentally revealed left frontal lesion suspicious for ischemic hemorrhage -seen by neurology. Rec no therapy #Hyponatremia -Na 127 -> 131 -imrpoving -pt on fluids #Hypothyroid -on synthroid via PEG #PEG tube not functioning properly -will call IR #FEN -D5 -hyponatremia -NPO while intubated #PPX -protonix -no heparin in setting of possible acute stroke #Dispo -Admit to ICU Elia Morrison MD PGY-1 ICU case d/w attending Visit type - Emergency Visit Emergency Visit: No - New Patient This patient is new to me today: No - Critical Care Critical Care patient: Yes Total Critical Care Time (in minutes): 35 Critical Care Statement: The care of this patient involved high complexity decision making to prevent further life threatening deterioration of the patient 's condition and/or to evaluate & treat vital organ system(s) failure or risk of failure. - Discharge Referral Referred to [facility] Med P.C.: No
[2017-05-27 08:51] LABS: ANISOCYTOSIS 2+; MACROCYTOSIS 2+
[2017-05-27] MEDS: LINEZOLID 600 MG PREMIX BAG 300 ML IVPB SCH ×2 (09:22→22:16)
[2017-05-27] MEDS: HYDROCORTISONE SOD SUCCINATE 100 MG/2 ML VIAL IVPUSH SCH ×2 (09:22→22:16)
[2017-05-27 09:35] LABS: CHOLESTEROL 138 mg/dL (50-200)
[2017-05-27] MEDS ORDERED: PANTOPRAZOLE SOD 40 MG SUSPENSION PACKET PEG SCH (10:00)
--- NOTE | 2017-05-27 10:41 | PN ---
Progress Note (short form) - Note Progress Note: NEUROLOGY FOLLOW-UP: Events reviewed and discussed with healthcare administration intern and RN. Follow-up requested at 7:42 PM yesterday but answering service confirms there were no calls from the ICU or attempts to contact me. This 82 yo woman with advanced dementia has had a prolonged hospitalization associated with MRSA, VNA and infectious diarrhea requiring rectal tube. Recurrent bouts of respiratory arrests requiring ICU and mechanical ventilation. Apparently not a DNR in spite of advanced cognitive decline. Recent labs show increasing anemia with H/H now 5.6/15.8. Yesterday developed respiratory difficulty attributed to CHF but not responsive to diuresis. Around the time of respiratory arrest she had a brief witnessed seizure. CT of head (reviewed): shows diffuse atrophy and extensive microvascular changes. A small left frontal cortical infarct is present which (in retrospect) is seen on the prior CT of 04/28/17 but has matured. AL: Intubated. On propofol. Neck supple. Rectal tube. Neuro: + spontaneous respirations. Opens eyes and grimaces to sternal pressure. PERRLA. Full EOMs to Doll's head. No obvious facial asymmetry. Corneals +/+ Withdraws all 4's symmetrically to distal pinch. Symmetrical reflexes. Decreased AJ's. Plantars silent. IMP: Severe B/L cerebral dysfunction (OMS, Chronic). No focality to suggest Acute CVA Isolated seizure due to hypoxemia/ respiratory arrest (severe anemia may be contributing). SUGGEST: No need for MRI/MRA No stroke Rx. No seizure Rx Check TSH. Repeat U/A to exclude recurrent UTI. Consider careful transfusion to expedite extubation. Decrease propofol and observe. Thank you very much, Hugo Adams MD
--- NOTE | 2017-05-27 10:50 | PN ---
Progress Note, Physician Chief Complaint: Pt is intubated; opens eyes; usual lateral gaze; at times stares directly out History of Present Illness: 82 year old white female with PMH of hypothyroidism, smoking disorder, and mild systolic CHF, with moderate TR, mild MR and AR, noted on 2017 ECHO; (s/p stent 2 years ago for suspected VA) presenting with repeat falls, and altered mental status over the past few months. Patient is poor historian so her son at bedside was complementing the interview. According to him she has fallen 5 times in the last 3-4 months despite her use of a walker. She hit her head two weeks prior during one of the falls but did not seek attention. She did not lose consciousness during that fall. She describes the falls as "my legs giving out" which is corroborated by her son who witnessed one of the events. The son claims that she also has had difficulty keep track of time and with short term memory. Her memory issues are worsened at night. She lives at home alone and has had trouble with her ADLs. She is not on blood thinners. She has also had decreased food intake over the past few months although she has only lost a few pounds. She was seen by her PCP Dr. Mitchell earlier today and then sent to the ED for admission for altered mental status. Denies fevers, chills, nausea, vomiting, diarrhea, constipation, urinary symptoms, visual changes, headaches, presyncopal sensation, or palpitations. Her PCP is Dr. Mitchell. - Current Medication List Current Medications: Active Medications Atorvastatin Calcium (Lipitor -) 20 mg PO HS JOCELYNE Diltiazem HCl (Cardizem -) 30 mg PEG TID JOCELYNE Last Admin: 05/27/17 06:46 Dose: Not Given Hydrocortisone Sodium Succinate (Solu-Cortef -) 25 mg IVPUSH BID JOCELYNE Stop: 05/29/17 10:01 Last Admin: 05/27/17 09:22 Dose: 25 mg Propofol (Diprivan -) 100 mls @ 1.63 mls/hr IVPB TITR JOCELYNE; 5 MCG/KG/MIN PRN Reason: Protocol Last Admin: 05/26/17 14:30 Dose: 1.63 mls/hr Trimethoprim/Sulfamethoxazole (100 mg/ Dextrose) 256.25 mls @ 256.25 mls/hr IVPB Q8H-IV JOCELYNE Last Admin: 05/27/17 10:24 Dose: 256.25 mls/hr Linezolid (Zyvox 600 Mg Premix Bag (Restricted To Id) -) 300 mls @ 300 mls/hr IVPB BID JOCELYNE PRN Reason: Protocol Last Admin: 05/27/17 09:22 Dose: 300 mls/hr Levothyroxine Sodium (Synthroid -) 88 mcg PEG DAILY@0700 [facility] Last Admin: 05/27/17 06:46 Dose: Not Given Nystatin (Mycostatin Cream -) 1 applic TP BID [facility] Last Admin: 05/26/17 23:14 Dose: 1 applic Pantoprazole Sodium (Protonix Packets For Oral Suspension -) 40 mg PEG DAILY [facility] Last Admin: 05/27/17 09:22 Dose: Not Given - Objective Vital Signs: Vital Signs Temperature 98.6 F 05/27/17 10:00 Pulse Rate 71 05/27/17 10:00 Respiratory Rate 18 05/27/17 10:00 Blood Pressure 103/50 05/27/17 10:00 O2 Sat by Pulse Oximetry (%) 99 05/27/17 07:56 Constitutional: Yes: Thin Eyes: Yes: Conjunctiva Clear, Other (jerky eye movements;) HENT: Yes: Other (intubated) Neck: Yes: Decreased ROM Cardiovascular: Yes: S1, S2 Respiratory: Yes: Mechanically Ventilated Genitourinary: No: Anuria Breast(s): Yes: WNL Musculoskeletal: Yes: Muscle Weakness Extremities: Yes: Cool Edema: No Peripheral Pulses WNL: No Peripheral Pulses: Left Doralis Pedis: 1+, Right Dorsalis Pedis: 1+ Integumentary: Yes: Other Neurological: Yes: Unresponsive, Weakness Psychiatric: Yes: Other Labs: CBC, BMP 05/27/17 05:30 05/27/17 05:30 INR, PTT INR 1.11 (0.82-1.09) 05/12/17 01:35 - ....Imaging Chest X-ray: Image Reviewed (IS vascular congestion; Lt IJ cath) X-ray: Image Reviewed (abd: PEG) Other: Image Reviewed (telemetry: NSR) Problem List - Problems (1) Acute respiratory failure with hypoxia and hypercapnia Assessment/Plan: reintubated; ?ventilator depdendent; may require tracheostomy Code(s): J96.01 - ACUTE RESPIRATORY FAILURE WITH HYPOXIA J96.02 - ACUTE RESPIRATORY FAILURE WITH HYPERCAPNIA (2) Anemia Assessment/Plan: severe anemia. For PBCs. Code(s): D64.9 - ANEMIA, UNSPECIFIED Qualifiers: Qualified Code(s): D62 - Acute posthemorrhagic anemia; D62 - Acute posthemorrhagic anemia (3) Aspiration pneumonia Code(s): J69.0 - PNEUMONITIS DUE TO INHALATION OF FOOD AND VOMIT (4) Dementia Code(s): F03.90 - UNSPECIFIED DEMENTIA WITHOUT BEHAVIORAL DISTURBANCE (5) Fever Code(s): R50.9 - FEVER, UNSPECIFIED (6) Shock Code(s): R57.9 - SHOCK, UNSPECIFIED (7) HTN (hypertension) Code(s): I10 - ESSENTIAL (PRIMARY) HYPERTENSION (8) Hypothyroidism Assessment/Plan: On Synthroid. TSH low; free T4 mildly elevated. Code(s): E03.9 - HYPOTHYROIDISM, UNSPECIFIED (9) Osteoporosis Code(s): M81.0 - AGE-RELATED OSTEOPOROSIS W/O CURRENT PATHOLOGICAL FRACTURE (10) Smoking Code(s): F17.200 - NICOTINE DEPENDENCE, UNSPECIFIED, UNCOMPLICATED (11) Acute on chronic systolic (congestive) heart failure Assessment/Plan: BNP >11,000 ECHO: mildly reduced LVEF; mild MR; moderate TR; mild AR; trivial pericardial effusion. F/u BUN/Cr, electrolytes, Is and Os, weight. Treat hyponatremia. Avoid excessive dehydration. Code(s): I50.23 - ACUTE ON CHRONIC SYSTOLIC (CONGESTIVE) HEART FAILURE (12) Sinus tachycardia Assessment/Plan: likely multifactorial: periodic fever; anemia; septic shock;hypoxia; intubation ; ?pain. Maintain hydration. On diltiazem (caution, given reduced LVEF). Code(s): R00.0 - TACHYCARDIA, UNSPECIFIED (13) Hypophosphatemia Assessment/Plan: repleted, and f/u level WNL (keep 2.5-4.9). Code(s): E83.39 - OTHER DISORDERS OF PHOSPHORUS METABOLISM Assessment/Plan CC time spent evaluating pt, formulating note: 40 minutes
--- NOTE | 2017-05-27 11:09 | PN ---
Progress Note, Physician Chief Complaint: Unable to obtain. Patient intubated. Eyes open and blinking - Current Medication List Current Medications: Active Medications Atorvastatin Calcium (Lipitor -) 20 mg PO HS [facility] Diltiazem HCl (Cardizem -) 30 mg PEG TID [facility] Last Admin: 05/27/17 06:46 Dose: Not Given Hydrocortisone Sodium Succinate (Solu-Cortef -) 25 mg IVPUSH BID [facility] Stop: 05/29/17 10:01 Last Admin: 05/27/17 09:22 Dose: 25 mg Propofol (Diprivan -) 100 mls @ 1.63 mls/hr IVPB TITR JOCELYNE; 5 MCG/KG/MIN PRN Reason: Protocol Last Admin: 05/26/17 14:30 Dose: 1.63 mls/hr Trimethoprim/Sulfamethoxazole (100 mg/ Dextrose) 256.25 mls @ 256.25 mls/hr IVPB Q8H-IV [facility] Last Admin: 05/27/17 10:24 Dose: 256.25 mls/hr Linezolid (Zyvox 600 Mg Premix Bag (Restricted To Id) -) 300 mls @ 300 mls/hr IVPB BID JOCELYNE PRN Reason: Protocol Last Admin: 05/27/17 09:22 Dose: 300 mls/hr Levothyroxine Sodium (Synthroid -) 88 mcg PEG DAILY@0700 [facility] Last Admin: 05/27/17 06:46 Dose: Not Given Nystatin (Mycostatin Cream -) 1 applic TP BID [facility] Last Admin: 05/26/17 23:14 Dose: 1 applic Pantoprazole Sodium (Protonix Packets For Oral Suspension -) 40 mg PEG DAILY [facility] Last Admin: 05/27/17 09:22 Dose: Not Given - Objective Vital Signs: Vital Signs Temperature 37.0 C 05/27/17 10:00 Pulse Rate 71 05/27/17 10:00 Respiratory Rate 18 05/27/17 10:00 Blood Pressure 103/50 05/27/17 10:00 O2 Sat by Pulse Oximetry (%) 99 05/27/17 07:56 Constitutional: Yes: No Distress, Calm Cardiovascular: Yes: Regular Rate and Rhythm. No: Gallop, Murmur, Rub Respiratory: Yes: Regular, Intubated, Mechanically Ventilated, Rhonchi. No: CTA Bilaterally, Rales, Wheezes Gastrointestinal: Yes: Normal Bowel Sounds, Soft. No: Distention, Tenderness Extremities: Yes: WNL Edema: No Labs: CBC, BMP 05/27/17 05:30 05/27/17 05:30 INR, PTT INR 1.11 (0.82-1.09) 05/12/17 01:35 Problem List - Problems (1) UTI (urinary tract infection) Code(s): N39.0 - URINARY TRACT INFECTION, SITE NOT SPECIFIED (2) Dementia Code(s): F03.90 - UNSPECIFIED DEMENTIA WITHOUT BEHAVIORAL DISTURBANCE (3) Pancytopenia Code(s): D61.818 - OTHER PANCYTOPENIA (4) CHF (congestive heart failure) Code(s): I50.9 - HEART FAILURE, UNSPECIFIED Qualifiers: Qualified Code(s): I50.9 - Heart failure, unspecified; I50.9 - Heart failure, unspecified; I50.9 - Heart failure, unspecified; I50.9 - Heart failure , unspecified (5) HTN (hypertension) Code(s): I10 - ESSENTIAL (PRIMARY) HYPERTENSION (6) Hypothyroidism Code(s): E03.9 - HYPOTHYROIDISM, UNSPECIFIED (7) Aspiration pneumonia Code(s): J69.0 - PNEUMONITIS DUE TO INHALATION OF FOOD AND VOMIT (8) Anemia Code(s): D64.9 - ANEMIA, UNSPECIFIED Qualifiers: Qualified Code(s): D62 - Acute posthemorrhagic anemia; D62 - Acute posthemorrhagic anemia (9) Septic shock Code(s): A41.9 - SEPSIS, UNSPECIFIED ORGANISM R65.21 - SEVERE SEPSIS WITH SEPTIC SHOCK (10) Acute respiratory failure Code(s): J96.00 - ACUTE RESPIRATORY FAILURE, UNSP W HYPOXIA OR HYPERCAPNIA Assessment/Plan (1) Acute respiratory failure -continue ventilation per pulmonary -case d/w son yesterday and topic of trach broached -son wants patient to be full code and trach if needed -if needs trach, which suspect she will, son to give consent (2) Elevated troponin -trending down -suspect stress induced -cardiology following (3) Seizure -spoke with RN in the ICU, began seizing on way down -given ativan but recurred, intubated and placed on sedation -resolved (4) CHF exacerbation -chest x-ray showing fluid overload -given lasix -monitor I/Os (5) Pneumonia -previous cultures growing stenotrophomonas -ID following (6) UTI -continue linezolid per ID (7) Hyponatremia -improved today (8) Hypothyroid -TSH elevated and FT4 low -will increase synthroid (9) Anemia -patient with anemia -transfuse today -check stool, if with occult positive stool may need scopes if stable 38 minutes critical care time spent with this patient
--- NOTE | 2017-05-27 12:44 | PN ---
Teaching Attending Note Name of Resident: Elia Morrison ATTENDING PHYSICIAN STATEMENT I saw and evaluated the patient. I reviewed the resident's note and discussed the case with the resident. I agree with the resident's findings and plan as documented. SUBJECTIVE: Patient seen and examined. Events overnight. Intubated and sedated. AC Mode of vent. Eyes are open. Not following commands Severe anemia. Intake & Output 05/24/17 05/25/17 05/26/17 05/27/17 23:59 23:59 23:59 23:59 Intake Total 2530 2140 801.6 152 Output Total 1500 1000 1300 600 Balance 1030 1140 -498.4 -448 Weight 142 lb 3 oz Last Vital Signs Temp Pulse Resp BP Pulse Ox 98.6 F 74 18 116/54 99 05/27/17 11:09 05/27/17 11:25 05/27/17 12:25 05/27/17 11:25 05/27/17 07:56 Active Medications Atorvastatin Calcium (Lipitor -) 20 mg PO HS JOCELYNE Diltiazem HCl (Cardizem -) 30 mg PEG TID [facility] Last Admin: 05/27/17 06:46 Dose: Not Given Hydrocortisone Sodium Succinate (Solu-Cortef -) 25 mg IVPUSH BID [facility] Stop: 05/29/17 10:01 Last Admin: 05/27/17 09:22 Dose: 25 mg Propofol (Diprivan -) 100 mls @ 1.63 mls/hr IVPB TITR JOCELYNE; 5 MCG/KG/MIN PRN Reason: Protocol Last Admin: 05/26/17 14:30 Dose: 1.63 mls/hr Trimethoprim/Sulfamethoxazole (100 mg/ Dextrose) 256.25 mls @ 256.25 mls/hr IVPB Q8H-IV JOCELYNE Last Admin: 05/27/17 10:24 Dose: 256.25 mls/hr Linezolid (Zyvox 600 Mg Premix Bag (Restricted To Id) -) 300 mls @ 300 mls/hr IVPB BID JOCELYNE PRN Reason: Protocol Last Admin: 05/27/17 09:22 Dose: 300 mls/hr Levothyroxine Sodium (Synthroid -) 88 mcg PEG DAILY@0700 [facility] Last Admin: 05/27/17 06:46 Dose: Not Given Nystatin (Mycostatin Cream -) 1 applic TP BID [facility] Last Admin: 05/26/17 23:14 Dose: 1 applic Pantoprazole Sodium (Protonix Packets For Oral Suspension -) 40 mg PEG DAILY [facility] Last Admin: 05/27/17 09:22 Dose: Not Given General: Intubated, awake, frail woman HEENT: anicteric, no JVD CV: S1, S2, RRR Pulm: Bilateral scattered rhonchi Abd: Soft, ND, (+) BS Ext: +2 pulses Neuro: Blinks to threat, non-focal Laboratory Results - last 24 hr 05/26/17 05/26/17 05/26/17 13:37 13:39 13:40 WBC RBC Hgb Hct MCV MCH MCHC RDW Plt Count MPV Neutrophils % Lymphocytes % Monocytes % Eosinophils % Basophils % Basophilic Stippling Anisocytosis Macrocytosis Puncture Site Right radial ABG pH 7.37 ABG pCO2 at Pt Temp 33.3 L ABG pO2 at Pt Temp 176.0 H* D ABG HCO3 18.8 L ABG O2 Sat (Measured) 99.6 H* ABG O2 Content 12.2 L ABG Base Excess -5.3 L Demario Test Positive O2 Delivery Device Bipap Oxygen Flow Rate 50 Vent Mode S/t Vent Rate 18 Mechanical Rate Bipap PEEP 0.0 Pressure Support Vent 16/6 Sodium Potassium Chloride Carbon Dioxide Anion Gap BUN Creatinine Creat Clearance w eGFR POC Glucometer 127 Random Glucose Calcium Phosphorus Magnesium Total Bilirubin AST ALT Alkaline Phosphatase Creatine Kinase 87 Troponin I 4.09 H* Total Protein Albumin Triglycerides Cholesterol Total LDL Cholesterol HDL Cholesterol TSH Free T4 Blood Type Antibody Screen Crossmatch 05/26/17 05/26/17 05/27/17 18:05 23:30 05:30 WBC 4.6 RBC 1.57 L D Hgb 5.6 L* D Hct 15.8 L D MCV 100.5 H MCH 35.8 H MCHC 35.7 RDW 21.6 H Plt Count 150 MPV 7.8 Neutrophils % 78.4 Lymphocytes % 16.4 D Monocytes % 4.7 Eosinophils % 0.3 Basophils % 0.2 Basophilic Stippling 2+ Anisocytosis 2+ Macrocytosis 2+ Puncture Site Left radial ABG pH 7.52 H D ABG pCO2 at Pt Temp 36.1 ABG pO2 at Pt Temp 151.0 H* D ABG HCO3 29.0 H ABG O2 Sat (Measured) 100.0 H* ABG O2 Content 8.4 L* ABG Base Excess 5.8 H Demario Test Positive O2 Delivery Device Ventilator Oxygen Flow Rate 50% Vent Mode A/c Vent Rate 14 Mechanical Rate Yes PEEP 5.0 Pressure Support Vent 450 Sodium Potassium Chloride Carbon Dioxide Anion Gap BUN Creatinine Creat Clearance w eGFR POC Glucometer Random Glucose Calcium Phosphorus Magnesium Total Bilirubin AST ALT Alkaline Phosphatase Creatine Kinase Troponin I 3.14 H* Total Protein Albumin Triglycerides Cholesterol Total LDL Cholesterol HDL Cholesterol TSH Free T4 Blood Type Antibody Screen Crossmatch 05/27/17 05/27/17 05/27/17 05:30 05:30 08:40 WBC RBC Hgb Hct MCV MCH MCHC RDW Plt Count MPV Neutrophils % Lymphocytes % Monocytes % Eosinophils % Basophils % Basophilic Stippling Anisocytosis Macrocytosis Puncture Site ABG pH ABG pCO2 at Pt Temp ABG pO2 at Pt Temp ABG HCO3 ABG O2 Sat (Measured) ABG O2 Content ABG Base Excess Demario Test O2 Delivery Device Oxygen Flow Rate Vent Mode Vent Rate Mechanical Rate PEEP Pressure Support Vent Sodium 131 L Potassium 4.3 Chloride 95 L Carbon Dioxide 28 Anion Gap 8 BUN 27 H Creatinine 0.7 Creat Clearance w eGFR > 60 POC Glucometer Random Glucose 89 D Calcium 7.1 L Phosphorus 3.4 Magnesium 1.8 Total Bilirubin 0.4 D AST 27 D ALT 44 Alkaline Phosphatase 206 H Creatine Kinase Troponin I 3.00 H* Total Protein 4.2 L Albumin 1.8 L Triglycerides 155 Cancelled Cholesterol 138 D Cancelled Total LDL Cholesterol 57 Cancelled HDL Cholesterol 50 D Cancelled TSH 26.40 H D Free T4 0.53 L D Blood Type A NEGATIVE Antibody Screen Negative Crossmatch See Detail Problem List - Problems (1) Altered mental status, unspecified Code(s): R41.82 - ALTERED MENTAL STATUS, UNSPECIFIED (2) Aspiration pneumonia Code(s): J69.0 - PNEUMONITIS DUE TO INHALATION OF FOOD AND VOMIT (3) Dementia Code(s): F03.90 - UNSPECIFIED DEMENTIA WITHOUT BEHAVIORAL DISTURBANCE (4) Acute respiratory failure with hypoxia and hypercapnia Code(s): J96.01 - ACUTE RESPIRATORY FAILURE WITH HYPOXIA J96.02 - ACUTE RESPIRATORY FAILURE WITH HYPERCAPNIA (5) Pancytopenia Code(s): D61.818 - OTHER PANCYTOPENIA (6) CHF (congestive heart failure) Code(s): I50.9 - HEART FAILURE, UNSPECIFIED Qualifiers: Congestive heart failure type: unspecified congestive heart failure type Congestive heart failure chronicity: chronic Qualified Code(s): I50.9 - Heart failure, unspecified; I50.9 - Heart failure, unspecified; I50.9 - Heart failure, unspecified; I50.9 - Heart failure, unspecified (7) Hypothyroidism Code(s): E03.9 - HYPOTHYROIDISM, UNSPECIFIED (8) Paroxysmal SVT (supraventricular tachycardia) Code(s): I47.1 - SUPRAVENTRICULAR TACHYCARDIA (9) Shock Code(s): R57.9 - SHOCK, UNSPECIFIED Assessment/Plan Normal transfusion thresholds AC mode of vent ABX per ID Wean trials by tomorrow if more stable. Will need to discuss GOC with son. May need Tracheostomy Dr Melgar Critical care time spent in reviewing chart, evaluating patient and formulating plan - 40 minutes.
[2017-05-27] MEDS: NYSTATIN 100,000 UNIT/GM TOPICAL CREAM 15 GM TUBE TP SCH ×2 (13:05→22:23)
[2017-05-27] MEDS: PROPOFOL 100 ML IVPB SCH (14:03)
[2017-05-27 14:57] LABS: URINE APPEARANCE CLEAR; URINE BILIRUBIN NEGATIVE (NEGATIVE); URINE BLOOD NEGATIVE (NEGATIVE); URINE COLOR LTYELLOW; URINE GLUCOSE (UA) NEGATIVE (NEGATIVE); URINE KETONE NEGATIVE (NEGATIVE); URINE NITRITE NEGATIVE (NEGATIVE); URINE PROTEIN NEGATIVE (NEGATIVE); URINE UROBILINOGEN NEGATIVE mg/dL (0.2-1.0)
--- NOTE | 2017-05-27 16:40 | PN ---
Progress Note, Physician History of Present Illness: events noted patient with stroke new still intubated - Current Medication List Current Medications: Active Medications Atorvastatin Calcium (Lipitor -) 20 mg PO HS [facility] Diltiazem HCl (Cardizem -) 30 mg PEG TID [facility] Last Admin: 05/27/17 13:06 Dose: Not Given Hydrocortisone Sodium Succinate (Solu-Cortef -) 25 mg IVPUSH BID [facility] Stop: 05/29/17 10:01 Last Admin: 05/27/17 09:22 Dose: 25 mg Propofol (Diprivan -) 100 mls @ 1.63 mls/hr IVPB TITR [facility]; 5 MCG/KG/MIN PRN Reason: Protocol Last Admin: 05/27/17 14:03 Dose: 1.63 mls/hr Trimethoprim/Sulfamethoxazole (100 mg/ Dextrose) 256.25 mls @ 256.25 mls/hr IVPB Q8H-IV [facility] Last Admin: 05/27/17 10:24 Dose: 256.25 mls/hr Linezolid (Zyvox 600 Mg Premix Bag (Restricted To Id) -) 300 mls @ 300 mls/hr IVPB BID [facility] PRN Reason: Protocol Last Admin: 05/27/17 09:22 Dose: 300 mls/hr Levothyroxine Sodium (Synthroid -) 88 mcg PEG DAILY@0700 [facility] Last Admin: 05/27/17 06:46 Dose: Not Given Nystatin (Mycostatin Cream -) 1 applic TP BID [facility] Last Admin: 05/27/17 13:05 Dose: 1 applic Pantoprazole Sodium (Protonix Packets For Oral Suspension -) 40 mg PEG DAILY [facility] Last Admin: 05/27/17 09:22 Dose: Not Given - Objective Vital Signs: Vital Signs Temperature 98.6 F 05/27/17 14:02 Pulse Rate 98 H 05/27/17 14:02 Respiratory Rate 15 05/27/17 15:17 Blood Pressure 106/58 05/27/17 14:02 O2 Sat by Pulse Oximetry (%) 99 05/27/17 07:56 Constitutional: Yes: No Distress Cardiovascular: Yes: Regular Rate and Rhythm Respiratory: Yes: Intubated, Mechanically Ventilated Gastrointestinal: Yes: Normal Bowel Sounds, Soft Musculoskeletal: Yes: Other Extremities: Yes: Other Neurological: Yes: Other Psychiatric: Yes: Other Labs: CBC, BMP 05/27/17 05:30 05/27/17 05:30 INR, PTT INR 1.11 (0.82-1.09) 05/12/17 01:35 Assessment/Plan Problem List - Problems (1) UTI (urinary tract infection) Code(s): N39.0 - URINARY TRACT INFECTION, SITE NOT SPECIFIED (2) Dementia Code(s): F03.90 - UNSPECIFIED DEMENTIA WITHOUT BEHAVIORAL DISTURBANCE (3) Pancytopenia Code(s): D61.818 - OTHER PANCYTOPENIA (4) CHF (congestive heart failure) Code(s): I50.9 - HEART FAILURE, UNSPECIFIED Qualifiers: Congestive heart failure type: unspecified congestive heart failure type Congestive heart failure chronicity: chronic Qualified Code(s): I50.9 - Heart failure, unspecified (5) HTN (hypertension) Code(s): I10 - ESSENTIAL (PRIMARY) HYPERTENSION (6) Hypothyroidism Code(s): E03.9 - HYPOTHYROIDISM, UNSPECIFIED Aspiration pneumonia Code(s): J69.0 - PNEUMONITIS DUE TO INHALATION OF FOOD AND VOMIT lactic acidosis plan continue nutrition abx to continue till the 11th rest as per primary team total duration of abx for 15 days close watch on the patient patient with stroke neuro on case cc time 40
--- NOTE | 2017-05-27 17:06 | EKG ---
Test Reason : Blood Pressure : / mmHG Vent. Rate : 089 BPM Atrial Rate : 089 BPM P-R Int : 106 ms QRS Dur : 080 ms QT Int : 404 ms P-R-T Axes : 058 034 084 degrees QTc Int : 491 ms SINUS RHYTHM WITH SHORT OH LOW VOLTAGE QRS SEPTAL INFARCT , AGE UNDETERMINED T WAVE ABNORMALITY, CONSIDER ANTERIOR ISCHEMIA ABNORMAL ECG WHEN COMPARED WITH ECG OF 26-MAY-2017 13:44, PREVIOUS ECG HAS UNDETERMINED RHYTHM, NEEDS REVIEW QUESTIONABLE CHANGE IN QRS DURATION SEPTAL INFARCT IS NOW PRESENT Confirmed by BREANNE LOMBARDO MD ([id number]) on 05/27/2017 5:05:59 PM Referred By: Confirmed By:BREANNE LOMBARDO MD
--- NOTE | 2017-05-27 17:06 | EKG ---
Test Reason : Blood Pressure : / mmHG Vent. Rate : 156 BPM Atrial Rate : 131 BPM P-R Int : 116 ms QRS Dur : 050 ms QT Int : 280 ms P-R-T Axes : 102 059 -25 degrees QTc Int : 451 ms POOR DATA QUALITY, INTERPRETATION MAY BE ADVERSELY AFFECTED UNDETERMINED RHYTHM LOW VOLTAGE QRS ABNORMAL ECG WHEN COMPARED WITH ECG OF 12-MAY-2017 03:07, CURRENT UNDETERMINED RHYTHM PRECLUDES RHYTHM COMPARISON, NEEDS REVIEW QUESTIONABLE CHANGE IN QRS DURATION Confirmed by BREANNE LOMBARDO MD ([id number]) on 05/27/2017 5:05:45 PM Referred By: KEVIN Confirmed By:BREANNE LOMBARDO MD
[2017-05-27 17:45] LABS: URINE LEUK ESTERASE Negative (NEGATIVE)
[2017-05-27 19:46] LABS: BASOPHIL 0.6 % (0-2.0); MCH 33.5 pg (25.7-33.7); MCHC 35.3 g/dl (32.0-36.0); NEUTROPHILS 64.5 % (42.8-82.8); PLATELET COUNT 104 K/MM3 (134-434); RDW 17.5 % (11.6-15.6); WHITE BLOOD COUNT 3.2 K/mm3 (4.0-10.0)
[2017-05-27] MEDS: PANTOPRAZOLE SODIUM 40 MG VIAL IVPUSH SCH (22:16)
[2017-05-27] MEDS: ATORVASTATIN CA 20 MG TABLET (FP) PO SCH (22:17)
[2017-05-28] MEDS: TRIMETHOPRIM IVPB SCH ×3 (03:00→19:10)
[2017-05-28] MEDS: WATER IVPB SCH ×3 (03:00→19:10)
[2017-05-28] MEDS: DEXTROSE 5% IVPB SCH ×3 (03:00→19:10)
[2017-05-28] MEDS: SULFAMETHOXAZOLE IVPB SCH ×3 (03:00→19:10)
[2017-05-28 06:07] LABS: BASOPHIL 0.3 % (0-2.0); EOSINOPHIL 0.1 % (0-4.5); MCH 34.3 pg (25.7-33.7); MCHC 36.5 g/dl (32.0-36.0); MEAN CELL VOLUME 93.9 fl (80-96); MEAN PLT VOLUME 7.3 fl (7.5-11.1); NEUTROPHILS 77.2 % (42.8-82.8); PLATELET COUNT 116 K/MM3 (134-434); RDW 17.5 % (11.6-15.6); WHITE BLOOD COUNT 2.8 K/mm3 (4.0-10.0)
[2017-05-28] MEDS: dilTIAZem HCL 30 MG TABLET (FP) PEG SCH ×3 (06:12→21:56)
[2017-05-28] MEDS: LEVOTHYROXINE SODIUM 100 MCG VIAL IVPUSH SCH (06:12)
[2017-05-28 07:29] LABS: ALBUMIN 1.8 g/dl (3.4-5.0); ALK PHOS 186 U/L (45-117); ANION GAP 6 (8-16); BILIRUBIN,TOTAL 0.8 mg/dL (0.2-1.0); CO2 29 mmol/L (21-32); CREATININE 0.8 mg/dL (0.55-1.02); GLUCOSE,RANDOM 92 mg/dL (74-106); MAGNESIUM 1.9 mg/dL (1.8-2.4); PHOSPHOROUS 3.2 mg/dL (2.5-4.9); SGOT/AST 28 U/L (15-37); SGPT/ALT 50 U/L (12-78); TOT PROT 4.3 g/dl (6.4-8.2)
[2017-05-28] MEDS: PANTOPRAZOLE SODIUM 40 MG VIAL IVPUSH SCH ×2 (09:24→21:58)
[2017-05-28] MEDS: LINEZOLID 600 MG PREMIX BAG 300 ML IVPB SCH ×2 (09:24→21:58)
[2017-05-28] MEDS: NYSTATIN 100,000 UNIT/GM TOPICAL CREAM 15 GM TUBE TP SCH ×2 (09:26→21:57)
[2017-05-28] MEDS: PROPOFOL 100 ML IVPB SCH (11:00)
[2017-05-28] MEDS: HYDROCORTISONE SOD SUCCINATE 100 MG/2 ML VIAL IVPUSH SCH ×2 (11:00→21:58)
--- NOTE | 2017-05-28 11:04 | PN ---
Progress Note, Physician Chief Complaint: Unable to obtain. Patient intubated. Eyes open today - Current Medication List Current Medications: Active Medications Atorvastatin Calcium (Lipitor -) 20 mg PO HS [facility] Last Admin: 05/27/17 22:17 Dose: Not Given Diltiazem HCl (Cardizem -) 30 mg PEG TID [facility] Last Admin: 05/28/17 06:12 Dose: Not Given Hydrocortisone Sodium Succinate (Solu-Cortef -) 25 mg IVPUSH BID [facility] Stop: 05/29/17 10:01 Last Admin: 05/28/17 11:00 Dose: 25 mg Propofol (Diprivan -) 100 mls @ 1.63 mls/hr IVPB TITR [facility]; 5 MCG/KG/MIN PRN Reason: Protocol Last Titration: 05/28/17 09:28 Dose: 0 mcg/kg/min Trimethoprim/Sulfamethoxazole (100 mg/ Dextrose) 256.25 mls @ 256.25 mls/hr IVPB Q8H-IV [facility] Last Admin: 05/28/17 11:00 Dose: 256.25 mls/hr Linezolid (Zyvox 600 Mg Premix Bag (Restricted To Id) -) 300 mls @ 300 mls/hr IVPB BID [facility] PRN Reason: Protocol Last Admin: 05/28/17 09:24 Dose: 300 mls/hr Levothyroxine Sodium (Synthroid Injection -) 44 mcg IVPUSH ACBK [facility] Last Admin: 05/28/17 06:12 Dose: 44 mcg Nystatin (Mycostatin Cream -) 1 applic TP BID [facility] Last Admin: 05/28/17 09:26 Dose: 1 applic Pantoprazole Sodium (Protonix Iv) 40 mg IVPUSH BID [facility] Last Admin: 05/28/17 09:24 Dose: 40 mg - Objective Vital Signs: Vital Signs Temperature 37.0 C 05/28/17 10:00 Pulse Rate 89 05/28/17 10:26 Respiratory Rate 14 05/28/17 10:00 Blood Pressure 119/78 05/28/17 10:00 O2 Sat by Pulse Oximetry (%) 100 05/28/17 10:26 Constitutional: Yes: No Distress Cardiovascular: Yes: Regular Rate and Rhythm. No: Gallop, Murmur, Rub Respiratory: Yes: Regular, Intubated, Mechanically Ventilated. No: Rales, Rhonchi, Wheezes Gastrointestinal: Yes: Normal Bowel Sounds, Soft. No: Distention, Tenderness Extremities: Yes: WNL Edema: No Labs: CBC, BMP 05/28/17 05:50 05/28/17 05:50 INR, PTT INR 1.11 (0.82-1.09) 05/12/17 01:35 Problem List - Problems (1) UTI (urinary tract infection) Code(s): N39.0 - URINARY TRACT INFECTION, SITE NOT SPECIFIED (2) Dementia Code(s): F03.90 - UNSPECIFIED DEMENTIA WITHOUT BEHAVIORAL DISTURBANCE (3) Pancytopenia Code(s): D61.818 - OTHER PANCYTOPENIA (4) CHF (congestive heart failure) Code(s): I50.9 - HEART FAILURE, UNSPECIFIED Qualifiers: Qualified Code(s): I50.9 - Heart failure, unspecified; I50.9 - Heart failure, unspecified; I50.9 - Heart failure, unspecified; I50.9 - Heart failure , unspecified (5) HTN (hypertension) Code(s): I10 - ESSENTIAL (PRIMARY) HYPERTENSION (6) Hypothyroidism Code(s): E03.9 - HYPOTHYROIDISM, UNSPECIFIED (7) Aspiration pneumonia Code(s): J69.0 - PNEUMONITIS DUE TO INHALATION OF FOOD AND VOMIT (8) Anemia Code(s): D64.9 - ANEMIA, UNSPECIFIED Qualifiers: Qualified Code(s): D62 - Acute posthemorrhagic anemia; D62 - Acute posthemorrhagic anemia (9) Septic shock Code(s): A41.9 - SEPSIS, UNSPECIFIED ORGANISM R65.21 - SEVERE SEPSIS WITH SEPTIC SHOCK (10) Acute respiratory failure Code(s): J96.00 - ACUTE RESPIRATORY FAILURE, UNSP W HYPOXIA OR HYPERCAPNIA Assessment/Plan (1) Acute respiratory failure -continue ventilation per pulmonary -will most likely need trach (2) Elevated troponin -trending down -suspect stress induced -cardiology following (3) Seizure -spoke with RN in the ICU, began seizing on way down -given ativan but recurred, intubated and placed on sedation -resolved (4) CHF exacerbation -s/p lasix -not I/Os (5) Pneumonia -previous cultures growing stenotrophomonas -ID following (6) UTI -continue linezolid per ID (7) Hyponatremia -improved today (8) Hypothyroid -place on IV levothyroxine (9) Anemia -consult GI for possible bleeding -s/p transfusion 34 minutes critical care time spent with this patient
--- NOTE | 2017-05-28 11:37 | PN ---
Teaching Attending Note Name of Resident: Elia Morrison ATTENDING PHYSICIAN STATEMENT I saw and evaluated the patient. I reviewed the resident's note and discussed the case with the resident. I agree with the resident's findings and plan as documented. SUBJECTIVE: Patient seen and examined. Remains intubated. AC Mode of vent. Awake and intermittently tracking. Not following commands No occult bleeding noted overnight. Intake & Output 05/25/17 05/26/17 05/27/17 05/28/17 23:59 23:59 23:59 23:59 Intake Total 2140 801.6 1726 6600 Output Total 1000 1300 2000 400 Balance 1140 -498.4 -274 6200 Weight 142 lb 3 oz 142 lb 4.8 oz Last Vital Signs Temp Pulse Resp BP Pulse Ox 98.6 F 89 14 119/78 100 05/28/17 10:00 05/28/17 10:26 05/28/17 10:00 05/28/17 10:00 05/28/17 10:26 Active Medications Atorvastatin Calcium (Lipitor -) 20 mg PO HS [facility] Last Admin: 05/27/17 22:17 Dose: Not Given Diltiazem HCl (Cardizem -) 30 mg PEG TID [facility] Last Admin: 05/28/17 06:12 Dose: Not Given Hydrocortisone Sodium Succinate (Solu-Cortef -) 25 mg IVPUSH BID [facility] Stop: 05/29/17 10:01 Last Admin: 05/28/17 11:00 Dose: 25 mg Propofol (Diprivan -) 100 mls @ 1.63 mls/hr IVPB TITR JOCELYNE; 5 MCG/KG/MIN PRN Reason: Protocol Last Titration: 05/28/17 09:28 Dose: 0 mcg/kg/min Trimethoprim/Sulfamethoxazole (100 mg/ Dextrose) 256.25 mls @ 256.25 mls/hr IVPB Q8H-IV [facility] Last Admin: 05/28/17 11:00 Dose: 256.25 mls/hr Linezolid (Zyvox 600 Mg Premix Bag (Restricted To Id) -) 300 mls @ 300 mls/hr IVPB BID [facility] PRN Reason: Protocol Last Admin: 05/28/17 09:24 Dose: 300 mls/hr Levothyroxine Sodium (Synthroid Injection -) 44 mcg IVPUSH ACBK [facility] Last Admin: 05/28/17 06:12 Dose: 44 mcg Nystatin (Mycostatin Cream -) 1 applic TP BID [facility] Last Admin: 05/28/17 09:26 Dose: 1 applic Pantoprazole Sodium (Protonix Iv) 40 mg IVPUSH BID [facility] Last Admin: 05/28/17 09:24 Dose: 40 mg General: Intubated, awake, frail woman HEENT: anicteric, no JVD CV: S1, S2, RRR Pulm: Bilateral scattered rhonchi Abd: Soft, ND, (+) BS Ext: +2 pulses Neuro: Blinks to threat, non-focal Laboratory Results - last 24 hr 05/27/17 05/27/17 05/27/17 08:40 14:30 19:15 WBC 3.2 L D RBC 2.32 L D Hgb 7.8 L D Hct 22.0 L D MCV 95.0 MCH 33.5 MCHC 35.3 RDW 17.5 H D Plt Count 104 L D MPV 8.0 Neutrophils % 64.5 Lymphocytes % 28.7 D Monocytes % 5.2 Eosinophils % 1.0 D Basophils % 0.6 PTT (Actin FS) Sodium Potassium Chloride Carbon Dioxide Anion Gap BUN Creatinine Creat Clearance w eGFR Random Glucose Calcium Phosphorus Magnesium Total Bilirubin AST ALT Alkaline Phosphatase Total Protein Albumin TSH Urine Color Ltyellow Urine Appearance Clear Urine pH 6.0 Ur Specific [place] 1.009 Urine Protein Negative Urine Glucose (UA) Negative Urine Ketones Negative Urine Blood Negative Urine Nitrite Negative Urine Bilirubin Negative Urine Urobilinogen Negative Ur Leukocyte Esterase Negative Blood Type A NEGATIVE Antibody Screen Negative Crossmatch See Detail 05/28/17 05/28/17 05/28/17 05:50 05:50 05:50 WBC 2.8 L RBC 2.37 L Hgb 8.1 L Hct 22.2 L MCV 93.9 MCH 34.3 H MCHC 36.5 H RDW 17.5 H Plt Count 116 L MPV 7.3 L Neutrophils % 77.2 Lymphocytes % 18.0 D Monocytes % 4.4 Eosinophils % 0.1 D Basophils % 0.3 PTT (Actin FS) 25.7 L Sodium 133 L Potassium 4.1 Chloride 98 Carbon Dioxide 29 Anion Gap 6 L BUN 24 H Creatinine 0.8 Creat Clearance w eGFR > 60 Random Glucose 92 Calcium 7.0 L Phosphorus 3.2 Magnesium 1.9 Total Bilirubin 0.8 D AST 28 ALT 50 Alkaline Phosphatase 186 H Total Protein 4.3 L Albumin 1.8 L TSH 26.10 H D Urine Color Urine Appearance Urine pH Ur Specific [place] Urine Protein Urine Glucose (UA) Urine Ketones Urine Blood Urine Nitrite Urine Bilirubin Urine Urobilinogen Ur Leukocyte Esterase Blood Type Antibody Screen Crossmatch Problem List - Problems (1) Altered mental status, unspecified Code(s): R41.82 - ALTERED MENTAL STATUS, UNSPECIFIED (2) Aspiration pneumonia Code(s): J69.0 - PNEUMONITIS DUE TO INHALATION OF FOOD AND VOMIT (3) Dementia Code(s): F03.90 - UNSPECIFIED DEMENTIA WITHOUT BEHAVIORAL DISTURBANCE (4) Acute respiratory failure with hypoxia and hypercapnia Code(s): J96.01 - ACUTE RESPIRATORY FAILURE WITH HYPOXIA J96.02 - ACUTE RESPIRATORY FAILURE WITH HYPERCAPNIA (5) Pancytopenia Code(s): D61.818 - OTHER PANCYTOPENIA (6) CHF (congestive heart failure) Code(s): I50.9 - HEART FAILURE, UNSPECIFIED Qualifiers: Congestive heart failure type: unspecified congestive heart failure type Congestive heart failure chronicity: chronic Qualified Code(s): I50.9 - Heart failure, unspecified; I50.9 - Heart failure, unspecified; I50.9 - Heart failure, unspecified; I50.9 - Heart failure, unspecified (7) Hypothyroidism Code(s): E03.9 - HYPOTHYROIDISM, UNSPECIFIED (8) Paroxysmal SVT (supraventricular tachycardia) Code(s): I47.1 - SUPRAVENTRICULAR TACHYCARDIA (9) Shock Code(s): R57.9 - SHOCK, UNSPECIFIED Assessment/Plan Normal transfusion thresholds AC mode of vent ABX per ID Wean trials as tolerated. May need Tracheostomy. Apparently the son has been informed and is willing to have this intervention if needed. Will confirm. Dr Melgar Critical care time spent in reviewing chart, evaluating patient and formulating plan - 40 minutes.
--- NOTE | 2017-05-28 13:37 | PN ---
Physical Exam: SUBJECTIVE: Patient seen and examined at bedside. Pt intubated and sedated. ET tube was retracted 2cm. F/u CXR normal. Pt stable. OBJECTIVE: Vital Signs Period Temp Pulse Resp BP Sys/Damon Pulse Ox Last 24 Hr 98.2 F-98.9 F 67-98 12-21 95-136/20-78 94-100 GENERAL: The patient is awake in no acute distress. HEAD: Normal with no signs of trauma. EYES: sclera anicteric, conjunctiva clear. No ptosis. ENT: dry mucous membranes. NECK: Trachea midline, full range of motion, supple. LUNGS: Breath sounds equal, clear to auscultation bilaterally, no wheezes, no crackles, no accessory muscle use. HEART: irregular rate and rhythm, S1, S2 without murmur, rub or gallop. ABDOMEN: Soft, nontender, nondistended, normoactive bowel sounds, no guarding, no rebound, no hepatosplenomegaly, no masses. EXTREMITIES: 2+ pulses, warm, well-perfused, no edema. NEUROLOGICAL: intubated sedated PSYCH: intubated and sedated SKIN: Warm, dry, normal turgor, no rashes or lesions noted Laboratory Results - last 24 hr 05/27/17 05/27/17 05/27/17 08:40 14:30 19:15 WBC 3.2 L D RBC 2.32 L D Hgb 7.8 L D Hct 22.0 L D MCV 95.0 MCH 33.5 MCHC 35.3 RDW 17.5 H D Plt Count 104 L D MPV 8.0 Neutrophils % 64.5 Lymphocytes % 28.7 D Monocytes % 5.2 Eosinophils % 1.0 D Basophils % 0.6 PTT (Actin FS) Sodium Potassium Chloride Carbon Dioxide Anion Gap BUN Creatinine Creat Clearance w eGFR Random Glucose Calcium Phosphorus Magnesium Total Bilirubin AST ALT Alkaline Phosphatase Total Protein Albumin TSH Urine Color Ltyellow Urine Appearance Clear Urine pH 6.0 Ur Specific [place] 1.009 Urine Protein Negative Urine Glucose (UA) Negative Urine Ketones Negative Urine Blood Negative Urine Nitrite Negative Urine Bilirubin Negative Urine Urobilinogen Negative Ur Leukocyte Esterase Negative Blood Type A NEGATIVE Antibody Screen Negative Crossmatch See Detail 05/28/17 05/28/17 05/28/17 05:50 05:50 05:50 WBC 2.8 L RBC 2.37 L Hgb 8.1 L Hct 22.2 L MCV 93.9 MCH 34.3 H MCHC 36.5 H RDW 17.5 H Plt Count 116 L MPV 7.3 L Neutrophils % 77.2 Lymphocytes % 18.0 D Monocytes % 4.4 Eosinophils % 0.1 D Basophils % 0.3 PTT (Actin FS) 25.7 L Sodium 133 L Potassium 4.1 Chloride 98 Carbon Dioxide 29 Anion Gap 6 L BUN 24 H Creatinine 0.8 Creat Clearance w eGFR > 60 Random Glucose 92 Calcium 7.0 L Phosphorus 3.2 Magnesium 1.9 Total Bilirubin 0.8 D AST 28 ALT 50 Alkaline Phosphatase 186 H Total Protein 4.3 L Albumin 1.8 L TSH 26.10 H D Urine Color Urine Appearance Urine pH Ur Specific [place] Urine Protein Urine Glucose (UA) Urine Ketones Urine Blood Urine Nitrite Urine Bilirubin Urine Urobilinogen Ur Leukocyte Esterase Blood Type Antibody Screen Crossmatch Active Medications Generic Name Dose Route Start Last Admin Trade Name Freq PRN Reason Stop Dose Admin Atorvastatin Calcium 20 mg 05/27/17 22:00 05/27/17 22:17 Lipitor - PO Not Given HS [facility] Diltiazem HCl 30 mg 05/26/17 22:00 05/28/17 06:12 Cardizem - PEG Not Given TID [facility] Hydrocortisone Sodium Succinate 25 mg 05/26/17 22:00 05/28/17 11:00 Solu-Cortef - IVPUSH 05/29/17 10:01 25 mg BID [facility] Administration Propofol 100 mls @ 1.63 mls/hr 05/26/17 14:30 05/28/17 09:28 Diprivan - IVPB 0 mcg/kg/min TITR [facility] Titration Protocol 5 MCG/KG/MIN Trimethoprim/Sulfamethoxazole 256.25 mls @ 256.25 mls/hr 05/27/17 02:00 11:00 100 mg/ Dextrose IVPB 256.25 mls/hr Q8H-IV [facility] Administration Linezolid 300 mls @ 300 mls/hr 05/26/17 22:00 05/28/17 09:24 Zyvox 600 Mg Premix Bag (Restricted To Id) - IVPB 300 mls/hr BID [facility] Administration Protocol Levothyroxine Sodium 44 mcg 05/28/17 07:00 05/28/17 06:12 Synthroid Injection - IVPUSH 44 mcg ACBK [facility] Administration Nystatin 1 applic 05/26/17 22:00 05/28/17 09:26 Mycostatin Cream - TP 1 applic BID [facility] Administration Pantoprazole Sodium 40 mg 05/27/17 22:00 05/28/17 09:24 Protonix Iv IVPUSH 40 mg BID [facility] Administration ASSESSMENT/PLAN: 82 F w/ PMH hypothyroidism, HTN, CAD (s/p stent placement 2 years ago), former smoker (quit 2 mo ago) presented to the ER from PCP's office for AMS and frequent falls. Pt has had a long and arduous hospital course and is now admitted to ICU following a rapid response. Pt was found to be in acute hypoxic respiratory failure and was transferred to ICU. En route, she began seizing, and once in the unit, she was intubated. Pt is now intubated and sedated on pressors. #acute hypoxic resp failure -pt intubated and sedated -ET tube adjusted. Pt is stable -Pt may need tracheostomy in the future if weaning trials prove unsuccessful. Pt 's son states he gave consent #anemia -Hb currently 8.1 from 7.8 -Pt has received 3PRBCs this hospitalization -transfuse as needed #likely CVA -CT done for seizures incidentally revealed left frontal lesion suspicious for ischemic hemorrhage -seen by neurology. Rec no therapy #Hyponatremia -Na 127 -> 131 -imrpoving -pt on fluids #Hypothyroid -on synthroid via PEG #Troponinemia -peak of 3.14 in the setting of sepsis -per cardio not likely to be ACS #PEG tube not functioning properly -Pt to have correction of PEG by IR -confirmed and consented with son by phone #FEN -D5 -mild hyponatremia -NPO while intubated #PPX -protonix -no heparin in setting of possible acute stroke #Dispo -Admit to ICU Elia Morrison MD PGY-1 ICU case d/w attending Visit type - Emergency Visit Emergency Visit: No - New Patient This patient is new to me today: No - Critical Care Critical Care patient: No - Discharge Referral Referred to [facility] No
--- NOTE | 2017-05-28 14:56 | PN ---
GI Progress Note Subjective: GI NOte: Asked to exclude GI bleeding as cause of sudden drop of Hb to 5. No active bleeding reported. Patient is now intubated and noncommunicative. She did have a G tube placed by IR recently. She got heparin transiently when troponins radha and HI was suspected. G tube has apparently become plugged. I unplugged the tube with flushes and lavaged the stomach until bile stained fluid returned. There was no evidence of bleeding. - Objective Vital Signs: Vital Signs Temperature 98.6 F 05/28/17 10:00 Pulse Rate 97 H 05/28/17 12:00 Respiratory Rate 05/28/17 12:05 Blood Pressure 112/60 05/28/17 12:00 O2 Sat by Pulse Oximetry (%) 100 05/28/17 10:26 Laboratory Tests 05/10/17 05/24/17 05/25/17 06:30 05:35 06:00 WBC Hgb 8.5 L 8.3 L Plt Count BUN Total Bilirubin AST ALT Alkaline Phosphatase Albumin 2.4 L 05/25/17 05/26/17 05/26/17 21:00 06:15 06:15 WBC Hgb 7.6 L Plt Count BUN 29 H 30 H Total Bilirubin AST ALT Alkaline Phosphatase Albumin 05/27/17 05/27/17 05/28/17 05:30 19:15 05:50 WBC 2.8 L Hgb 5.6 L* D 7.8 L D 8.1 L Plt Count 150 116 L BUN Total Bilirubin AST ALT Alkaline Phosphatase Albumin 05/28/17 05:50 WBC Hgb Plt Count BUN Total Bilirubin 0.8 D AST 28 ALT 50 Alkaline Phosphatase 186 H Albumin 1.8 L Constitutional: Other (Stuporous on ventilator) Gastrointestinal Inspection: Yes: Other (no flank hematomas) ...Auscultate: Yes: Hypoactive Bowel Sounds ...Palpate: Yes: Soft, Other (no tenderness elicited) ...Rectal Exam: Yes: Guaiac Positive (greenish brown guaiac positive stool alongside rectal tube) Labs: CBC, BMP 05/28/17 05:50 05/28/17 05:50 INR, PTT INR 1.11 (0.82-1.09) 05/12/17 01:35 Assessment/Plan Given the lack of blood on gastric lavage, lack of rise in BUN and only occult blood in the stool I doubt a GI source as the cause of this Hb drop. She may have had an intraperitoneal bleed on heparin at her PEG insertion site. If bleeding persists would consider a CT scan and surgical consultation . Would otherwise optimize coagulation profile and follow CBCs. Discussed with residents.
--- NOTE | 2017-05-28 15:35 | PN ---
Progress Note, Physician History of Present Illness: no changes continues to be intubated events noted blockage of feeding tube gi evaluating the patient - Current Medication List Current Medications: Active Medications Atorvastatin Calcium (Lipitor -) 20 mg PO HS [facility] Last Admin: 05/27/17 22:17 Dose: Not Given Diltiazem HCl (Cardizem -) 30 mg PEG TID [facility] Last Admin: 05/28/17 06:12 Dose: Not Given Hydrocortisone Sodium Succinate (Solu-Cortef -) 25 mg IVPUSH BID [facility] Stop: 05/29/17 10:01 Last Admin: 05/28/17 11:00 Dose: 25 mg Propofol (Diprivan -) 100 mls @ 1.63 mls/hr IVPB TITR [facility]; 5 MCG/KG/MIN PRN Reason: Protocol Last Titration: 05/28/17 09:28 Dose: 0 mcg/kg/min Trimethoprim/Sulfamethoxazole (100 mg/ Dextrose) 256.25 mls @ 256.25 mls/hr IVPB Q8H-IV [facility] Last Admin: 05/28/17 11:00 Dose: 256.25 mls/hr Linezolid (Zyvox 600 Mg Premix Bag (Restricted To Id) -) 300 mls @ 300 mls/hr IVPB BID [facility] PRN Reason: Protocol Last Admin: 05/28/17 09:24 Dose: 300 mls/hr Levothyroxine Sodium (Synthroid Injection -) 44 mcg IVPUSH ACBK [facility] Last Admin: 05/28/17 06:12 Dose: 44 mcg Nystatin (Mycostatin Cream -) 1 applic TP BID [facility] Last Admin: 05/28/17 09:26 Dose: 1 applic Pantoprazole Sodium (Protonix Iv) 40 mg IVPUSH BID [facility] Last Admin: 05/28/17 09:24 Dose: 40 mg - Objective Vital Signs: Vital Signs Temperature 98.6 F 05/28/17 10:00 Pulse Rate 97 H 05/28/17 12:00 Respiratory Rate 18 05/28/17 14:15 Blood Pressure 112/60 05/28/17 12:00 O2 Sat by Pulse Oximetry (%) 100 05/28/17 10:26 Constitutional: Yes: Other Neck: Yes: Supple Cardiovascular: Yes: Regular Rate and Rhythm Respiratory: Yes: Intubated, Mechanically Ventilated Gastrointestinal: Yes: Normal Bowel Sounds, Soft Musculoskeletal: Yes: Other Extremities: Yes: Other Edema: LLE: Trace, RLE: Trace Neurological: Yes: Other Labs: CBC, BMP 05/28/17 05:50 05/28/17 05:50 INR, PTT INR 1.11 (0.82-1.09) 05/12/17 01:35 Assessment/Plan Problem List - Problems (1) UTI (urinary tract infection) Code(s): N39.0 - URINARY TRACT INFECTION, SITE NOT SPECIFIED (2) Dementia Code(s): F03.90 - UNSPECIFIED DEMENTIA WITHOUT BEHAVIORAL DISTURBANCE (3) Pancytopenia Code(s): D61.818 - OTHER PANCYTOPENIA (4) CHF (congestive heart failure) Code(s): I50.9 - HEART FAILURE, UNSPECIFIED Qualifiers: Congestive heart failure type: unspecified congestive heart failure type Congestive heart failure chronicity: chronic Qualified Code(s): I50.9 - Heart failure, unspecified (5) HTN (hypertension) Code(s): I10 - ESSENTIAL (PRIMARY) HYPERTENSION (6) Hypothyroidism Code(s): E03.9 - HYPOTHYROIDISM, UNSPECIFIED Aspiration pneumonia Code(s): J69.0 - PNEUMONITIS DUE TO INHALATION OF FOOD AND VOMIT lactic acidosis plan continue nutrition abx to continue till the 11th rest as per primary team total duration of abx for 15 days close watch on the patient patient with stroke neuro on case gi on case cc time 40
[2017-05-28] MEDS ORDERED: PT OWN MED DRAWER 7, Y5N ONE ×2 (16:14→18:01)
[2017-05-28] MEDS: ATORVASTATIN CA 20 MG TABLET (FP) PO SCH (21:56)
[2017-05-29] MEDS: WATER IVPB SCH ×3 (01:18→18:19)
[2017-05-29] MEDS: TRIMETHOPRIM IVPB SCH ×3 (01:18→18:19)
[2017-05-29] MEDS: DEXTROSE 5% IVPB SCH ×3 (01:18→18:19)
[2017-05-29] MEDS: SULFAMETHOXAZOLE IVPB SCH ×3 (01:18→18:19)
--- NOTE | 2017-05-29 05:18 | PN ---
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 Patient is poor historian so her son at bedside was complementing the interview. According to him she has fallen 5 times in the last 3-4 months despite her use of a walker. She hit her head two weeks prior during one of the falls but did not seek attention. She did not lose consciousness during that fall. She describes the falls as "my legs giving out" which is corroborated by her son who witnessed one of the events. The son claims that she also has had difficulty keep track of time and with short term memory. Her memory issues are worsened at night. She lives at home alone and has had trouble with her ADLs. She is not on blood thinners. She has also had decreased food intake over the past few months although she has only lost a few pounds. She was seen by her PCP Dr. Mitchell earlier today and then sent to the ED for admission for altered mental status. Denies fevers, chills, nausea, vomiting, diarrhea, constipation, urinary symptoms, visual changes, headaches, presyncopal sensation, or palpitations. Her PCP is Dr. Mitchell. - Current Medication List Current Medications: Active Medications Atorvastatin Calcium (Lipitor -) 20 mg PO HS [facility] Last Admin: 05/28/17 21:56 Dose: 20 mg Diltiazem HCl (Cardizem -) 30 mg PEG TID [facility] Last Admin: 05/28/17 21:56 Dose: 30 mg Hydrocortisone Sodium Succinate (Solu-Cortef -) 25 mg IVPUSH BID [facility] Stop: 05/29/17 10:01 Last Admin: 05/28/17 21:58 Dose: 25 mg Propofol (Diprivan -) 100 mls @ 1.63 mls/hr IVPB TITR JOCELYNE; 5 MCG/KG/MIN PRN Reason: Protocol Last Admin: 05/28/17 11:00 Dose: 1.63 mls/hr Trimethoprim/Sulfamethoxazole (100 mg/ Dextrose) 256.25 mls @ 256.25 mls/hr IVPB Q8H-IV [facility] Last Admin: 05/29/17 01:18 Dose: 256.25 mls/hr Linezolid (Zyvox 600 Mg Premix Bag (Restricted To Id) -) 300 mls @ 300 mls/hr IVPB BID [facility]NE PRN Reason: Protocol Last Admin: 05/28/17 21:58 Dose: 300 mls/hr Levothyroxine Sodium (Synthroid Injection -) 44 mcg IVPUSH ACBK [facility] Last Admin: 05/28/17 06:12 Dose: 44 mcg Nystatin (Mycostatin Cream -) 1 applic TP BID [facility] Last Admin: 05/28/17 21:57 Dose: 1 applic Pantoprazole Sodium (Protonix Iv) 40 mg IVPUSH BID [facility] Last Admin: 05/28/17 21:58 Dose: 40 mg - Objective Vital Signs: Vital Signs Temperature 99.1 F 05/29/17 02:00 Pulse Rate 74 05/29/17 04:00 Respiratory Rate 14 05/29/17 04:00 Blood Pressure 129/65 05/29/17 04:00 O2 Sat by Pulse Oximetry (%) 100 05/28/17 21:00 Constitutional: Yes: Thin Eyes: Yes: Conjunctiva Clear HENT: Yes: Other Neck: Yes: Decreased ROM Cardiovascular: Yes: Regular Rate and Rhythm Respiratory: Yes: Diminished, Intubated. No: SOB Gastrointestinal: Yes: Soft Genitourinary: No: Anuria Musculoskeletal: Yes: Muscle Weakness Extremities: Yes: Cool Edema: LUE: Trace, LLE: Trace Peripheral Pulses: Left Doralis Pedis: 1+, Right Dorsalis Pedis: 1+ Neurological: Yes: Unresponsive Psychiatric: Yes: Other Labs: CBC, BMP 05/28/17 05:50 05/28/17 05:50 INR, PTT INR 1.11 (0.82-1.09) 05/12/17 01:35 Abnormal Lab Results 05/28/17 05/28/17 05/28/17 05:50 05:50 05:50 WBC 2.8 L RBC 2.37 L Hgb 8.1 L Hct 22.2 L MCH 34.3 H MCHC 36.5 H RDW 17.5 H Plt Count 116 L MPV 7.3 L PTT (Actin FS) 25.7 L Sodium 133 L Anion Gap 6 L BUN 24 H Calcium 7.0 L Alkaline Phosphatase 186 H Total Protein 4.3 L Albumin 1.8 L TSH 26.10 H D Problem List - Problems (1) Acute respiratory failure with hypoxia and hypercapnia Assessment/Plan: reintubated; AC mode. ?ventilator depdendent; may require tracheostomy Code(s): J96.01 - ACUTE RESPIRATORY FAILURE WITH HYPOXIA J96.02 - ACUTE RESPIRATORY FAILURE WITH HYPERCAPNIA (2) Anemia Assessment/Plan: severe anemia. s/p PRBCs. Code(s): D64.9 - ANEMIA, UNSPECIFIED Qualifiers: Qualified Code(s): D62 - Acute posthemorrhagic anemia; D62 - Acute posthemorrhagic anemia (3) Aspiration pneumonia Code(s): J69.0 - PNEUMONITIS DUE TO INHALATION OF FOOD AND VOMIT (4) Dementia Assessment/Plan: neuro w/u noted; OMS: cortical infarct; no acute CVA Code(s): F03.90 - UNSPECIFIED DEMENTIA WITHOUT BEHAVIORAL DISTURBANCE (5) Fever Code(s): R50.9 - FEVER, UNSPECIFIED (6) Shock Assessment/Plan: Off pressors. Mild systolic dysfunction. Continue fluids. On antibiotics per ID. Rising TNI: likely demand ischemia (respiratory failure; sepsis; systolic CHF; pancytopenia). Code(s): R57.9 - SHOCK, UNSPECIFIED (7) HTN (hypertension) Assessment/Plan: on diltiazem (caution with systolic LV dysfunction, anemia, periods of low BP). Code(s): I10 - ESSENTIAL (PRIMARY) HYPERTENSION (8) Hypothyroidism Assessment/Plan: On Synthroid. TSH low; free T4 mildly elevated. Code(s): E03.9 - HYPOTHYROIDISM, UNSPECIFIED (9) Osteoporosis Code(s): M81.0 - AGE-RELATED OSTEOPOROSIS W/O CURRENT PATHOLOGICAL FRACTURE (10) Smoking Code(s): F17.200 - NICOTINE DEPENDENCE, UNSPECIFIED, UNCOMPLICATED (11) Acute on chronic systolic (congestive) heart failure Assessment/Plan: BNP >11,000 ECHO: mildly reduced LVEF; mild MR; moderate TR; mild AR; trivial pericardial effusion. On diltiazem (caution, given reduced LVEF, low-NL BP); F/u BUN/Cr, electrolytes, Is and Os, weight. Treat hyponatremia. Avoid excessive dehydration. Code(s): I50.23 - ACUTE ON CHRONIC SYSTOLIC (CONGESTIVE) HEART FAILURE Assessment/Plan CC time spent evaluating pt, formulating note: 40 minutes
[2017-05-29] MEDS: dilTIAZem HCL 30 MG TABLET (FP) PEG SCH ×3 (06:15→22:00)
[2017-05-29] MEDS: LEVOTHYROXINE SODIUM 100 MCG VIAL IVPUSH SCH (06:15)
[2017-05-29 06:21] LABS: MCH 34.9 pg (25.7-33.7); MCHC 36.3 g/dl (32.0-36.0); MEAN CELL VOLUME 96.2 fl (80-96); MEAN PLT VOLUME 7.9 fl (7.5-11.1); PLATELET COUNT 123 K/MM3 (134-434); RDW 17.9 % (11.6-15.6); WHITE BLOOD COUNT 3.8 K/mm3 (4.0-10.0)
--- NOTE | 2017-05-29 06:59 | PN ---
Progress Note, Physician History of Present Illness: seen and examined today in nad. opens eyes and tracks with eyes. no overnight events. remains intubated. - Current Medication List Current Medications: Active Medications Atorvastatin Calcium (Lipitor -) 20 mg PO HS [facility] Last Admin: 05/28/17 21:56 Dose: 20 mg Diltiazem HCl (Cardizem -) 30 mg PEG TID [facility] Last Admin: 05/29/17 06:15 Dose: 30 mg Hydrocortisone Sodium Succinate (Solu-Cortef -) 25 mg IVPUSH BID [facility] Stop: 05/29/17 10:01 Last Admin: 05/28/17 21:58 Dose: 25 mg Propofol (Diprivan -) 100 mls @ 1.63 mls/hr IVPB TITR [facility]OC[facility]; 5 MCG/KG/MIN PRN Reason: Protocol Last Admin: 05/28/17 11:00 Dose: 1.63 mls/hr Trimethoprim/Sulfamethoxazole (100 mg/ Dextrose) 256.25 mls @ 256.25 mls/hr IVPB Q8H-IV [facility] Last Admin: 05/29/17 01:18 Dose: 256.25 mls/hr Linezolid (Zyvox 600 Mg Premix Bag (Restricted To Id) -) 300 mls @ 300 mls/hr IVPB BID [facility]NE PRN Reason: Protocol Last Admin: 05/28/17 21:58 Dose: 300 mls/hr Levothyroxine Sodium (Synthroid Injection -) 44 mcg IVPUSH ACBK [facility] Last Admin: 05/29/17 06:15 Dose: 44 mcg Nystatin (Mycostatin Cream -) 1 applic TP BID [facility] Last Admin: 05/28/17 21:57 Dose: 1 applic Pantoprazole Sodium (Protonix Iv) 40 mg IVPUSH BID [facility] Last Admin: 05/28/17 21:58 Dose: 40 mg - Objective Vital Signs: Vital Signs Temperature 98.9 F 05/29/17 06:00 Pulse Rate 74 05/29/17 06:00 Respiratory Rate 14 05/29/17 06:00 Blood Pressure 108/60 05/29/17 06:00 O2 Sat by Pulse Oximetry (%) 100 05/28/17 21:00 Constitutional: Yes: No Distress, Calm Eyes: Yes: Conjunctiva Clear, EOM Intact, PERRL HENT: Yes: Atraumatic, Normocephalic Neck: Yes: Supple, Trachea Midline Cardiovascular: Yes: Regular Rate and Rhythm, S1, S2. No: Bradycardia, Tachycardia, Pulse Irregular, Bruit, JVD, Gallop, Murmur, Rub, S3, S4, Varicosities Respiratory: Yes: Regular, Diminished, Intubated, Mechanically Ventilated. No: Rales, Rhonchi, Wheezes Gastrointestinal: Yes: Normal Bowel Sounds, Soft. No: Distention, Tenderness Edema: No Peripheral Pulses WNL: Yes Peripheral Pulses: Left Doralis Pedis: 2+, Right Dorsalis Pedis: 2+ Neurological: Yes: Other (opens eyes) Psychiatric: Yes: Other (opens eyes) Labs: CBC, BMP 05/29/17 06:10 05/28/17 05:50 INR, PTT INR 1.11 (0.82-1.09) 05/12/17 01:35 - ....Imaging Chest X-ray: Report Reviewed, Image Reviewed EKG: Report Reviewed, Image Reviewed Other: Report Reviewed, Image Reviewed (tele-NSR, APCs, PVCs) Assessment/Plan 82 year old woman with h/o chronic mild systolic CHF, CAD s/p stent 2 years ago admitted with frequent falls, ams, intubated for hypoxic respiratory failure. Respiratory failure-intubated -euvolemic, intravascularly depleted -hold diuresis, fluids as needed -h/o mild chronic systolic CHF Elevated troponin -believed to be due to sepsis, ROBSON, systolic CHF, not ACS -echo showed mild LV systolic dysfunction, minimal pericardial effusion HTN-history -septic shock during admission required pressors -avoid anti-HTN meds for now aside from cardizem that she has been tolerating
[2017-05-29] MEDS ORDERED: PT OWN MED DRAWER 7, Y5N ONE (08:35)
[2017-05-29] MEDS: LINEZOLID 600 MG PREMIX BAG 300 ML IVPB SCH ×2 (09:36→22:00)
[2017-05-29] MEDS: PANTOPRAZOLE SODIUM 40 MG VIAL IVPUSH SCH ×2 (09:36→22:00)
[2017-05-29] MEDS: NYSTATIN 100,000 UNIT/GM TOPICAL CREAM 15 GM TUBE TP SCH ×2 (09:36→22:00)
[2017-05-29] MEDS: HYDROCORTISONE SOD SUCCINATE 100 MG/2 ML VIAL IVPUSH SCH (09:36)
--- NOTE | 2017-05-29 11:20 | PN ---
Progress Note, Physician History of Present Illness: intubated awake - Current Medication List Current Medications: Active Medications Atorvastatin Calcium (Lipitor -) 20 mg PO HS [facility] Last Admin: 05/28/17 21:56 Dose: 20 mg Diltiazem HCl (Cardizem -) 30 mg PEG TID [facility] Last Admin: 05/29/17 06:15 Dose: 30 mg Propofol (Diprivan -) 100 mls @ 1.63 mls/hr IVPB TITR [facility]; 5 MCG/KG/MIN PRN Reason: Protocol Last Admin: 05/28/17 11:00 Dose: 1.63 mls/hr Trimethoprim/Sulfamethoxazole (100 mg/ Dextrose) 256.25 mls @ 256.25 mls/hr IVPB Q8H-IV [facility] Last Admin: 05/29/17 09:35 Dose: 256.25 mls/hr Linezolid (Zyvox 600 Mg Premix Bag (Restricted To Id) -) 300 mls @ 300 mls/hr IVPB BID [facility] PRN Reason: Protocol Last Admin: 05/29/17 09:36 Dose: 300 mls/hr Levothyroxine Sodium (Synthroid Injection -) 44 mcg IVPUSH ACBK [facility] Last Admin: 05/29/17 06:15 Dose: 44 mcg Nystatin (Mycostatin Cream -) 1 applic TP BID [facility] Last Admin: 05/29/17 09:36 Dose: 1 applic Pantoprazole Sodium (Protonix Iv) 40 mg IVPUSH BID [facility] Last Admin: 05/29/17 09:36 Dose: 40 mg - Objective Vital Signs: Vital Signs Temperature 97.5 F L 05/29/17 10:00 Pulse Rate 79 05/29/17 10:00 Respiratory Rate 12 05/29/17 10:00 Blood Pressure 103/58 05/29/17 10:00 O2 Sat by Pulse Oximetry (%) 100 05/29/17 09:00 Constitutional: Yes: No Distress, Calm Cardiovascular: Yes: Regular Rate and Rhythm Respiratory: Yes: Intubated, Mechanically Ventilated Gastrointestinal: Yes: Normal Bowel Sounds, Soft Genitourinary: Yes: Beck Present Musculoskeletal: Yes: WNL Edema: LLE: Trace, RLE: Trace Neurological: Yes: Alert Psychiatric: Yes: Alert Labs: CBC, BMP 05/29/17 06:10 05/28/17 05:50 INR, PTT INR 1.11 (0.82-1.09) 05/12/17 01:35 Assessment/Plan Problem List - Problems (1) UTI (urinary tract infection) Code(s): N39.0 - URINARY TRACT INFECTION, SITE NOT SPECIFIED (2) Dementia Code(s): F03.90 - UNSPECIFIED DEMENTIA WITHOUT BEHAVIORAL DISTURBANCE (3) Pancytopenia Code(s): D61.818 - OTHER PANCYTOPENIA (4) CHF (congestive heart failure) Code(s): I50.9 - HEART FAILURE, UNSPECIFIED Qualifiers: Congestive heart failure type: unspecified congestive heart failure type Congestive heart failure chronicity: chronic Qualified Code(s): I50.9 - Heart failure, unspecified (5) HTN (hypertension) Code(s): I10 - ESSENTIAL (PRIMARY) HYPERTENSION (6) Hypothyroidism Code(s): E03.9 - HYPOTHYROIDISM, UNSPECIFIED Aspiration pneumonia Code(s): J69.0 - PNEUMONITIS DUE TO INHALATION OF FOOD AND VOMIT lactic acidosis plan continue nutrition abx to continue till the 11th rest as per primary team total duration of abx for 15 days close watch on the patient patient with stroke neuro on case gi on case cc time 40
--- NOTE | 2017-05-29 11:23 | PN ---
Progress Note (short form) - Note Progress Note: SUBJECTIVE: Patient seen and examined. Remains intubated. AC Mode of vent. Awake and intermittently tracking. passing breathing trial this am Vital Signs Temp 97.5 F L 05/29/17 10:00 Pulse 79 05/29/17 10:00 Resp 12 05/29/17 10:00 BP 103/58 05/29/17 10:00 Pulse Ox 100 05/29/17 09:00 Intake & Output 05/28/17 05/28/17 05/29/17 11:59 23:59 11:59 Intake Total 6600 378 1020 Output Total 400 900 550 Balance 6200 -522 470 Weight 64.546 kg 64.954 kg Intake: IV 50 43 50 Diprivan - 100 ml @ 5 MCG 50 43 50 /KG/MIN 1.63 mls/hr IVPB TITR JOCELYNE Rx#:[id number] IVPB 6550 300 550 Tube Feeding 25 300 Tube Irrigant 10 120 Output: Urine 400 900 550 Beck 400 900 550 Other: Voiding Method Indwelling Catheter Indwelling Catheter Indwelling Catheter Bowel Movement Yes Yes Weight Measurement Method [facility] Active Medications Atorvastatin Calcium (Lipitor -) 20 mg PO HS [facility] Last Admin: 05/27/17 22:17 Dose: Not Given Diltiazem HCl (Cardizem -) 30 mg PEG TID [facility] Last Admin: 05/28/17 06:12 Dose: Not Given Hydrocortisone Sodium Succinate (Solu-Cortef -) 25 mg IVPUSH BID [facility] Stop: 05/29/17 10:01 Last Admin: 05/28/17 11:00 Dose: 25 mg Propofol (Diprivan -) 100 mls @ 1.63 mls/hr IVPB TITR JOCELYNE; 5 MCG/KG/MIN PRN Reason: Protocol Last Titration: 05/28/17 09:28 Dose: 0 mcg/kg/min Trimethoprim/Sulfamethoxazole (100 mg/ Dextrose) 256.25 mls @ 256.25 mls/hr IVPB Q8H-IV [facility] Last Admin: 05/28/17 11:00 Dose: 256.25 mls/hr Linezolid (Zyvox 600 Mg Premix Bag (Restricted To Id) -) 300 mls @ 300 mls/hr IVPB BID [facility] PRN Reason: Protocol Last Admin: 05/28/17 09:24 Dose: 300 mls/hr Levothyroxine Sodium (Synthroid Injection -) 44 mcg IVPUSH ACBK [facility] Last Admin: 05/28/17 06:12 Dose: 44 mcg Nystatin (Mycostatin Cream -) 1 applic TP BID [facility] Last Admin: 05/28/17 09:26 Dose: 1 applic Pantoprazole Sodium (Protonix Iv) 40 mg IVPUSH BID [facility] Last Admin: 05/28/17 09:24 Dose: 40 mg General: Intubated, awake, frail woman HEENT: anicteric, no JVD CV: S1, S2, RRR Pulm: few scattered crackles Abd: Soft, ND, (+) BS Ext: +2 pulses Neuro: Blinks to threat, non-focal, tracts CBCD WBC 3.8 K/mm3 (4.0-10.0) L D 05/29/17 06:10 RBC 2.56 M/mm3 (3.60-5.2) L 05/29/17 06:10 Hgb 8.9 GM/dL (10.7-15.3) L 05/29/17 06:10 Hct 24.7 % (32.4-45.2) L 05/29/17 06:10 MCV 96.2 fl (80-96) H 05/29/17 06:10 MCHC 36.3 g/dl (32.0-36.0) H 05/29/17 06:10 RDW 17.9 % (11.6-15.6) H 05/29/17 06:10 Plt Count 123 K/MM3 (134-434) L 05/29/17 06:10 MPV 7.9 fl (7.5-11.1) 05/29/17 06:10 CMP Sodium 133 mmol/L (136-145) L 05/28/17 05:50 Potassium 4.1 mmol/L (3.5-5.1) 05/28/17 05:50 Chloride 98 mmol/L (98-107) 05/28/17 05:50 Carbon Dioxide 29 mmol/L (21-32) 05/28/17 05:50 Anion Gap 6 (8-16) L 05/28/17 05:50 BUN 24 mg/dL (7-18) H 05/28/17 05:50 Creatinine 0.8 mg/dL (0.55-1.02) 05/28/17 05:50 Creat Clearance w eGFR > 60 (>60) 05/28/17 05:50 Calcium 7.0 mg/dL (8.5-10.1) L 05/28/17 05:50 Total Bilirubin 0.8 mg/dL (0.2-1.0) D 05/28/17 05:50 AST 28 U/L (15-37) 05/28/17 05:50 ALT 50 U/L (12-78) 05/28/17 05:50 Alkaline Phosphatase 186 U/L (45-117) H 05/28/17 05:50 Total Protein 4.3 g/dl (6.4-8.2) L 05/28/17 05:50 Albumin 1.8 g/dl (3.4-5.0) L 05/28/17 05:50 Problem List - Problems (1) Altered mental status, unspecified Code(s): R41.82 - ALTERED MENTAL STATUS, UNSPECIFIED (2) Aspiration pneumonia Code(s): J69.0 - PNEUMONITIS DUE TO INHALATION OF FOOD AND VOMIT (3) Dementia Code(s): F03.90 - UNSPECIFIED DEMENTIA WITHOUT BEHAVIORAL DISTURBANCE (4) Acute respiratory failure with hypoxia and hypercapnia Code(s): J96.01 - ACUTE RESPIRATORY FAILURE WITH HYPOXIA J96.02 - ACUTE RESPIRATORY FAILURE WITH HYPERCAPNIA (5) Pancytopenia Code(s): D61.818 - OTHER PANCYTOPENIA (6) CHF (congestive heart failure) Code(s): I50.9 - HEART FAILURE, UNSPECIFIED Qualifiers: Congestive heart failure type: unspecified congestive heart failure type Congestive heart failure chronicity: chronic Qualified Code(s): I50.9 - Heart failure, unspecified; I50.9 - Heart failure, unspecified; I50.9 - Heart failure, unspecified; I50.9 - Heart failure, unspecified (7) Hypothyroidism Code(s): E03.9 - HYPOTHYROIDISM, UNSPECIFIED (8) Paroxysmal SVT (supraventricular tachycardia) Code(s): I47.1 - SUPRAVENTRICULAR TACHYCARDIA (9) Shock Code(s): R57.9 - SHOCK, UNSPECIFIED Assessment/Plan Normal transfusion thresholds AC mode of vent ABX per ID on bactrim and zyvox Wean trials as tolerated. May need Tracheostomy (son consented). As is passing SBT, will trial extubation but low threshold to intubate/trach [facility] [id number]
[2017-05-29] MEDS ORDERED: FUROSEMIDE 40 MG/4 ML INJECTABLE VIAL IVPUSH ONE (11:33)
--- NOTE | 2017-05-29 18:41 | PN ---
Progress Note (short form) - Note Progress Note: Patient seen and examined in ICU. Remains intubated. Opening eyes. Not in distress. Afebrile. - Current Medication List Current Medications: Active Medications Atorvastatin Calcium (Lipitor -) 20 mg PO HS [facility] Last Admin: 05/27/17 22:17 Dose: Not Given Diltiazem HCl (Cardizem -) 30 mg PEG TID [facility] Last Admin: 05/28/17 06:12 Dose: Not Given Hydrocortisone Sodium Succinate (Solu-Cortef -) 25 mg IVPUSH BID [facility] Stop: 05/29/17 10:01 Last Admin: 05/28/17 11:00 Dose: 25 mg Propofol (Diprivan -) 100 mls @ 1.63 mls/hr IVPB TITR JOCELYNE; 5 MCG/KG/MIN PRN Reason: Protocol Last Titration: 05/28/17 09:28 Dose: 0 mcg/kg/min Trimethoprim/Sulfamethoxazole (100 mg/ Dextrose) 256.25 mls @ 256.25 mls/hr IVPB Q8H-IV [facility] Last Admin: 05/28/17 11:00 Dose: 256.25 mls/hr Linezolid (Zyvox 600 Mg Premix Bag (Restricted To Id) -) 300 mls @ 300 mls/hr IVPB BID [facility] PRN Reason: Protocol Last Admin: 05/28/17 09:24 Dose: 300 mls/hr Levothyroxine Sodium (Synthroid Injection -) 44 mcg IVPUSH ACBK [facility] Last Admin: 05/28/17 06:12 Dose: 44 mcg Nystatin (Mycostatin Cream -) 1 applic TP BID [facility] Last Admin: 05/28/17 09:26 Dose: 1 applic Pantoprazole Sodium (Protonix Iv) 40 mg IVPUSH BID [facility] Last Admin: 05/28/17 09:24 Dose: 40 mg - Objective Vital Signs: Vital Signs Period Temp Pulse Resp BP Sys/Damon Pulse Ox Last 24 Hr 97.5 F-99.4 F 70-90 9-20 103-129/56-74 100-100 Constitutional: Yes: No Distress Cardiovascular: Yes: Regular Rate and Rhythm. No: Gallop, Murmur, Rub Respiratory: Yes: Regular, Intubated, Mechanically Ventilated. No: Rales, Rhonchi, Wheezes Gastrointestinal: Yes: Normal Bowel Sounds, Soft. No: Distention, Tenderness Extremities: Yes: WNL Edema: No Labs: CBC, BMP 05/29/17 06:10 05/28/17 05:50 Problem List - Problems (1) UTI (urinary tract infection) Code(s): N39.0 - URINARY TRACT INFECTION, SITE NOT SPECIFIED (2) Dementia Code(s): F03.90 - UNSPECIFIED DEMENTIA WITHOUT BEHAVIORAL DISTURBANCE (3) Pancytopenia Code(s): D61.818 - OTHER PANCYTOPENIA (4) CHF (congestive heart failure) Code(s): I50.9 - HEART FAILURE, UNSPECIFIED Qualifiers: Qualified Code(s): I50.9 - Heart failure, unspecified; I50.9 - Heart failure, unspecified; I50.9 - Heart failure, unspecified; I50.9 - Heart failure , unspecified (5) HTN (hypertension) Code(s): I10 - ESSENTIAL (PRIMARY) HYPERTENSION (6) Hypothyroidism Code(s): E03.9 - HYPOTHYROIDISM, UNSPECIFIED (7) Aspiration pneumonia Code(s): J69.0 - PNEUMONITIS DUE TO INHALATION OF FOOD AND VOMIT (8) Anemia Code(s): D64.9 - ANEMIA, UNSPECIFIED Qualifiers: Qualified Code(s): D62 - Acute posthemorrhagic anemia; D62 - Acute posthemorrhagic anemia (9) Septic shock Code(s): A41.9 - SEPSIS, UNSPECIFIED ORGANISM R65.21 - SEVERE SEPSIS WITH SEPTIC SHOCK (10) Acute respiratory failure Code(s): J96.00 - ACUTE RESPIRATORY FAILURE, UNSP W HYPOXIA OR HYPERCAPNIA Assessment/Plan (1) Acute respiratory failure -continue ventilation per pulmonary -will most likely need trach (2) Elevated troponin -trending down -suspect stress induced -cardiology following (3) Seizure -Monitor (4) CHF exacerbation -s/p lasix -not I/Os (5) Pneumonia -previous cultures growing stenotrophomonas -ID following (6) UTI -continue linezolid per ID (7) Hyponatremia -improved today (8) Hypothyroid -place on IV levothyroxine (9) Anemia -consult GI for possible bleeding -s/p transfusion 35 minutes critical care time spent with this patient.
[2017-05-29] MEDS: ATORVASTATIN CA 20 MG TABLET (FP) PO SCH (22:00)
[2017-05-29] MEDS: PROPOFOL 100 ML IVPB SCH (23:13)
[2017-05-30] MEDS: SULFAMETHOXAZOLE IVPB SCH ×3 (02:04→17:48)
[2017-05-30] MEDS: DEXTROSE 5% IVPB SCH ×3 (02:04→17:48)
[2017-05-30] MEDS: TRIMETHOPRIM IVPB SCH ×3 (02:04→17:48)
[2017-05-30] MEDS: WATER IVPB SCH ×3 (02:04→17:48)
[2017-05-30] MEDS ORDERED: PT OWN MED DRAWER 7, Y5N ONE ×3 (05:49→21:15)
[2017-05-30] MEDS: dilTIAZem HCL 30 MG TABLET (FP) PEG SCH ×3 (06:10→21:42)
[2017-05-30] MEDS: LEVOTHYROXINE SODIUM 100 MCG VIAL IVPUSH SCH (06:10)
[2017-05-30 06:25] LABS: MCH 34.5 pg (25.7-33.7); MCHC 35.5 g/dl (32.0-36.0); MEAN CELL VOLUME 97.3 fl (80-96); MEAN PLT VOLUME 7.8 fl (7.5-11.1); PLATELET COUNT 125 K/MM3 (134-434); RDW 17.6 % (11.6-15.6); WHITE BLOOD COUNT 3.6 K/mm3 (4.0-10.0)
[2017-05-30] MEDS: PANTOPRAZOLE SODIUM 40 MG VIAL IVPUSH SCH ×2 (09:51→21:43)
[2017-05-30] MEDS: LINEZOLID 600 MG PREMIX BAG 300 ML IVPB SCH ×2 (09:51→21:43)
[2017-05-30] MEDS: NYSTATIN 100,000 UNIT/GM TOPICAL CREAM 15 GM TUBE TP SCH ×2 (10:23→21:44)
--- NOTE | 2017-05-30 10:27 | PN ---
Progress Note (short form) - Note Progress Note: PULM / CCM Pt Seen & Examined in the ICU. Remains extubated. NAD. mild ronchi but breathing easy. Active Medications Atorvastatin Calcium (Lipitor -) 20 mg PO HS [facility] Last Admin: 05/29/17 22:00 Dose: 20 mg Diltiazem HCl (Cardizem -) 30 mg PEG TID [facility] Last Admin: 05/30/17 06:10 Dose: 30 mg Propofol (Diprivan -) 100 mls @ 1.63 mls/hr IVPB TITR [facility]; 5 MCG/KG/MIN PRN Reason: Protocol Last Admin: 05/29/17 23:13 Dose: Not Given Trimethoprim/Sulfamethoxazole (100 mg/ Dextrose) 256.25 mls @ 256.25 mls/hr IVPB Q8H-IV [facility] Last Admin: 05/30/17 09:51 Dose: 256.25 mls/hr Linezolid (Zyvox 600 Mg Premix Bag (Restricted To Id) -) 300 mls @ 300 mls/hr IVPB BID [facility] PRN Reason: Protocol Last Admin: 05/30/17 09:51 Dose: 300 mls/hr Levothyroxine Sodium (Synthroid Injection -) 44 mcg IVPUSH ACBK [facility] Last Admin: 05/30/17 06:10 Dose: 44 mcg Nystatin (Mycostatin Cream -) 1 applic TP BID [facility] Last Admin: 05/30/17 10:23 Dose: 1 applic Pantoprazole Sodium (Protonix Iv) 40 mg IVPUSH BID [facility] Last Admin: 05/30/17 09:51 Dose: 40 mg V/S Period Temp Pulse Resp BP Sys/Damon Pulse Ox Last 24 Hr 97.8 F-99 F 70-100 9-18 113-137/54-74 100-100 Intake & Output 05/27/17 05/28/17 05/29/17 05/30/17 23:59 23:59 23:59 22:59 Intake Total 1726 8178 2298 1270 Output Total 1999 1300 3650 1000 Balance -274 4870 -2298 270 Weight 64.495 kg 64.546 kg 64.954 kg 64.093 kg CBC, BMP 05/30/17 06:00 05/28/17 05:50 Microbiology 05/27/17 14:30 Urine - Urine Beck Urine Culture - Final Pseudomonas Aeruginosa 10/18/17 02:00 Blood - Peripheral Venous Blood Culture - Final NO GROWTH AFTER 5 DAYS INCUBATION 05/12/17 02:00 Blood - Peripheral Venous Blood Culture - Final NO GROWTH AFTER 5 DAYS INCUBATION 05/12/17 15:00 Stool Salmonella/Shigella Culture - Final S Aureus 05/12/17 15:00 Stool Campylobacter Culture - Final NO GROWTH OF CAMPYLOBACTER SPECIES OBTAINED 05/12/17 15:00 Stool Yersinia Culture - Final NO GROWTH OF YERSINIA SPECIES OBTAINED 05/12/17 15:00 Stool Vibrio Culture - Final NO GROWTH OF VIBRIO SPECIES OBTAINED 05/12/17 15:00 Stool Escherichia coli 0157 Culture - Final NO GROWTH OF E COLI 0157 OBTAINED 05/12/17 01:35 Urine - Urine - Catheterized Urine Culture - Final Vr Ec Faecium 05/12/17 01:00 Sputum - Endotrachea Suction/Ventilator Gram Stain - Final 05/12/17 01:00 Sputum - Endotrachea Suction/Ventilator Sputum Culture - Final S Aureus Stenotrophomon.(X.)Maltophilia 05/12/17 15:00 Stool Gram Stain - Final 05/12/17 01:35 Stool Clostridium difficile Antigen (TAMEKA) - Final 05/12/17 01:35 Stool Clostridium difficile Toxin Assay - Final 04/10/17 13:25 Blood - Peripheral Venous Blood Culture - Final NO GROWTH AFTER 5 DAYS INCUBATION 04/10/17 13:25 Blood - Peripheral Venous Blood Culture - Final NO GROWTH AFTER 5 DAYS INCUBATION 04/11/17 17:35 Urine - Urine - Catheterized Urine Culture - Final NO GROWTH OBTAINED 04/03/17 16:30 Blood - Peripheral Venous Blood Culture - Final NO GROWTH AFTER 5 DAYS INCUBATION 04/04/17 08:00 Urine - Urine Clean Catch Urine Culture - Final Diphtheroid/Corynebacterium 04/01/17 18:15 Urine - Urine Clean Catch Urine Culture - Final Alpha Hemolytic Streptococcus CXR 05/30: PENDING ASSESS: This is an 82 y/o woman w/ CHF, CAD s/p stent 2 years ago admitted now w / frequent falls, AMS, & intubated for hypoxic respiratory failure m/l 2/2 exacerb/o CFF +/- Pna, diuresed, extubated now, doing well. PLAN: ABX per ID on bactrim and zyvox Cont statin, CCB, etc Normal transfusion thresholds PPI Continue trial extubation (but low threshold to intubate/trach) May need Trach (son consented) PPI ONEL, ACNP-BC [facility] ICU [id number] PULM / CCM
--- NOTE | 2017-05-30 10:38 | PN ---
Progress Note, Physician History of Present Illness: seen and examined today in nad. opens eyes but does not provide history. pt extubated yesterday. no overnight events. no new complaints. - Current Medication List Current Medications: Active Medications Atorvastatin Calcium (Lipitor -) 20 mg PO HS [facility] Last Admin: 05/29/17 22:00 Dose: 20 mg Diltiazem HCl (Cardizem -) 30 mg PEG TID [facility] Last Admin: 05/30/17 06:10 Dose: 30 mg Propofol (Diprivan -) 100 mls @ 1.63 mls/hr IVPB TITR [facility]; 5 MCG/KG/MIN PRN Reason: Protocol Last Admin: 05/29/17 23:13 Dose: Not Given Trimethoprim/Sulfamethoxazole (100 mg/ Dextrose) 256.25 mls @ 256.25 mls/hr IVPB Q8H-IV [facility] Last Admin: 05/30/17 09:51 Dose: 256.25 mls/hr Linezolid (Zyvox 600 Mg Premix Bag (Restricted To Id) -) 300 mls @ 300 mls/hr IVPB BID [facility] PRN Reason: Protocol Last Admin: 05/30/17 09:51 Dose: 300 mls/hr Levothyroxine Sodium (Synthroid Injection -) 44 mcg IVPUSH ACBK [facility] Last Admin: 05/30/17 06:10 Dose: 44 mcg Nystatin (Mycostatin Cream -) 1 applic TP BID [facility] Last Admin: 05/30/17 10:23 Dose: 1 applic Pantoprazole Sodium (Protonix Iv) 40 mg IVPUSH BID [facility] Last Admin: 05/30/17 09:51 Dose: 40 mg - Objective Vital Signs: Vital Signs Temperature 98.9 F 05/30/17 06:00 Pulse Rate 100 H 05/30/17 08:00 Respiratory Rate 14 05/30/17 09:00 Blood Pressure 118/61 05/30/17 08:00 O2 Sat by Pulse Oximetry (%) 100 05/30/17 01:13 EST Constitutional: Yes: No Distress, Calm Eyes: Yes: Conjunctiva Clear, EOM Intact, PERRL HENT: Yes: Atraumatic, Normocephalic Neck: Yes: Supple, Trachea Midline Cardiovascular: Yes: Regular Rate and Rhythm, S1, S2. No: Bradycardia, Tachycardia, Pulse Irregular, Bruit, JVD, Gallop, Murmur, Rub, S3, S4, Varicosities Respiratory: Yes: Regular, Diminished. No: Rales, Rhonchi, SOB, Wheezes Gastrointestinal: Yes: Normal Bowel Sounds, Soft. No: Distention, Tenderness Edema: No Peripheral Pulses WNL: Yes Neurological: Yes: Alert Psychiatric: Yes: Alert Labs: CBC, BMP 05/30/17 06:00 05/28/17 05:50 INR, PTT INR 1.11 (0.82-1.09) 05/12/17 01:35 - ....Imaging Chest X-ray: Report Reviewed, Image Reviewed EKG: Report Reviewed, Image Reviewed Other: Report Reviewed, Image Reviewed (tele-nsr, pvcs) Assessment/Plan 82 year old woman with h/o chronic mild systolic CHF, CAD s/p stent 2 years ago admitted with frequent falls, ams, intubated for hypoxic respiratory failure. Respiratory failure-intubated, now extubated -euvolemic, intravascularly depleted -hold diuresis, fluids as needed -h/o mild chronic systolic CHF Elevated troponin -believed to be due to sepsis, ROBSON, systolic CHF, not ACS -echo showed mild LV systolic dysfunction, minimal pericardial effusion -presumed not on ASA due to sig Anemia during admission -cont statin HTN-history -septic shock during admission required pressors -avoid anti-HTN meds for now aside from cardizem that she has been tolerating
[2017-05-30] MEDS: PROPOFOL 100 ML IVPB SCH (14:46)
--- NOTE | 2017-05-30 15:53 | PN ---
Progress Note (short form) - Note Progress Note: Patient seen and examined in ICU. Remains extubated. Not in distress. Afebrile. Opens eyes but non responsive. Current Medications Atorvastatin Calcium (Lipitor -) 20 mg PO HS [facility] Last Admin: 05/29/17 22:00 Dose: 20 mg Diltiazem HCl (Cardizem -) 30 mg PEG TID [facility] Last Admin: 05/30/17 14:45 Dose: 30 mg Propofol (Diprivan -) 100 mls @ 1.63 mls/hr IVPB TITR [facility]; 5 MCG/KG/MIN PRN Reason: Protocol Last Admin: 05/30/17 14:46 Dose: Not Given Trimethoprim/Sulfamethoxazole (100 mg/ Dextrose) 256.25 mls @ 256.25 mls/hr IVPB Q8H-IV [facility] Last Admin: 05/30/17 09:51 Dose: 256.25 mls/hr Linezolid (Zyvox 600 Mg Premix Bag (Restricted To Id) -) 300 mls @ 300 mls/hr IVPB BID [facility] PRN Reason: Protocol Last Admin: 05/30/17 09:51 Dose: 300 mls/hr Levothyroxine Sodium (Synthroid Injection -) 44 mcg IVPUSH ACBK [facility] Last Admin: 05/30/17 06:10 Dose: 44 mcg Nystatin (Mycostatin Cream -) 1 applic TP BID [facility] Last Admin: 05/30/17 10:23 Dose: 1 applic Pantoprazole Sodium (Protonix Iv) 40 mg IVPUSH BID [facility] Last Admin: 05/30/17 09:51 Dose: 40 mg - Objective Vital Signs: Vital Signs Period Temp Pulse Resp BP Sys/Damon Pulse Ox Last 24 Hr 97.8 F-99 F 58-102 12-18 118-137/54-71 99-100 Constitutional: Yes: No Distress Cardiovascular: Yes: Regular Rate and Rhythm. No: Gallop, Murmur, Rub Respiratory: Yes: Regular, Intubated, Mechanically Ventilated. No: Rales, Rhonchi, Wheezes Gastrointestinal: Yes: Normal Bowel Sounds, Soft. No: Distention, Tenderness Extremities: Yes: WNL Edema: No Labs: CBC, BMP 05/30/17 06:00 05/28/17 05:50 Problem List - Problems (1) UTI (urinary tract infection) Code(s): N39.0 - URINARY TRACT INFECTION, SITE NOT SPECIFIED (2) Dementia Code(s): F03.90 - UNSPECIFIED DEMENTIA WITHOUT BEHAVIORAL DISTURBANCE (3) Pancytopenia Code(s): D61.818 - OTHER PANCYTOPENIA (4) CHF (congestive heart failure) Code(s): I50.9 - HEART FAILURE, UNSPECIFIED Qualifiers: Qualified Code(s): I50.9 - Heart failure, unspecified; I50.9 - Heart failure, unspecified; I50.9 - Heart failure, unspecified; I50.9 - Heart failure , unspecified (5) HTN (hypertension) Code(s): I10 - ESSENTIAL (PRIMARY) HYPERTENSION (6) Hypothyroidism Code(s): E03.9 - HYPOTHYROIDISM, UNSPECIFIED (7) Aspiration pneumonia Code(s): J69.0 - PNEUMONITIS DUE TO INHALATION OF FOOD AND VOMIT (8) Anemia Code(s): D64.9 - ANEMIA, UNSPECIFIED Qualifiers: Qualified Code(s): D62 - Acute posthemorrhagic anemia; D62 - Acute posthemorrhagic anemia (9) Septic shock Code(s): A41.9 - SEPSIS, UNSPECIFIED ORGANISM R65.21 - SEVERE SEPSIS WITH SEPTIC SHOCK (10) Acute respiratory failure Code(s): J96.00 - ACUTE RESPIRATORY FAILURE, UNSP W HYPOXIA OR HYPERCAPNIA Assessment/Plan (1) Acute respiratory failure -Extubated yesterday. - Not in respiratory distress. - Continue to follow up closely. (2) Elevated troponin -trending down -suspect stress induced -cardiology following (3) Seizure -Monitor (4) CHF exacerbation -s/p lasix -not I/Os (5) Pneumonia -previous cultures growing stenotrophomonas -ID following (6) UTI -continue linezolid per ID (7) Hyponatremia -improved today (8) Hypothyroid -place on IV levothyroxine (9) Anemia -consult GI for possible bleeding -s/p transfusion 35 minutes critical care time spent with this patient.
[2017-05-30] MEDS: ATORVASTATIN CA 20 MG TABLET (FP) PO SCH (21:42)
[2017-05-31] MEDS: WATER IVPB SCH ×3 (02:54→20:54)
[2017-05-31] MEDS: DEXTROSE 5% IVPB SCH ×3 (02:54→20:54)
[2017-05-31] MEDS: TRIMETHOPRIM IVPB SCH ×3 (02:54→20:54)
[2017-05-31] MEDS: SULFAMETHOXAZOLE IVPB SCH ×3 (02:54→20:54)
[2017-05-31] MEDS: dilTIAZem HCL 30 MG TABLET (FP) PEG SCH ×3 (05:33→21:05)
[2017-05-31 06:18] LABS: MCH 33.7 pg (25.7-33.7); MCHC 34.3 g/dl (32.0-36.0); MEAN CELL VOLUME 98.2 fl (80-96); MEAN PLT VOLUME 7.5 fl (7.5-11.1); PLATELET COUNT 115 K/MM3 (134-434); RDW 17.8 % (11.6-15.6); WHITE BLOOD COUNT 3.4 K/mm3 (4.0-10.0)
[2017-05-31] MEDS: LEVOTHYROXINE SODIUM 100 MCG VIAL IVPUSH SCH (06:40)
[2017-05-31] MEDS ORDERED: PT OWN MED DRAWER 7, Y5N ONE ×2 (09:12→21:03)
[2017-05-31] MEDS: PANTOPRAZOLE SODIUM 40 MG VIAL IVPUSH SCH ×2 (09:25→21:07)
[2017-05-31] MEDS: NYSTATIN 100,000 UNIT/GM TOPICAL CREAM 15 GM TUBE TP SCH ×2 (09:26→21:05)
--- NOTE | 2017-05-31 10:53 | PN ---
Progress Note, Physician History of Present Illness: This is a 82 yo woman PMH: dementia, hypothyroid, HTN, active tobacco, CAD s/p sent, CHF presenting to ICU after RESEARCH TECH for hypoxic respiratory failure, SVT (HR 180s) and shock. Briefly, patient initially presented for frequent falls and altered mental status with overall physical and cognitive decline over the last 6 months prior to admission. CT head: w/ central atrophy and mild microvascular ischemic gliosis. Labs significant for hypothyroid, leukopenia and pyuria, she was started on ceftriaxone. Neurology was consulted. Endocrine consulted. Mental status had some improvement while on the floor. Speech and swallow eval done c/ f aspiration. ABX were switch to zosyn given increased secretions and c/f pneumonia. Plans made for potential PEG placement. Patient continued to have waxing and waning mental status. Patient had notable right facial droop and NCHCT done w/o acute pathology. She completed a course of ABX. GI was consulted for c/f GIB. Heme also consulted given anemia and leukopenia and w/u sent: flow- -0.2% blasts, clonal B cells questionable nonspecific immunophenotype. On day of ICU admission patient had witnessed aspiration event. RESEARCH TECH was called in PM for hypoxia and tachycardia. Patient transferred to ICU for hypoxic respiratory failure. Patient intubated. ABG 7.3/54/242 (ACVC: 20/400/100 +5). Patient given adenosine for SVT w/ underlying sinus rhythm. Patient continued to have RVR and was given lopressor 5mg x1 w/ HR improved to 120s. Family called but were unavailable. - History Source - Current Medication List Current Medications: Active Medications Atorvastatin Calcium (Lipitor -) 20 mg PO HS [facility] Last Admin: 05/30/17 21:42 Dose: 20 mg Diltiazem HCl (Cardizem -) 30 mg PEG TID [facility] Last Admin: 05/31/17 05:33 Dose: 30 mg Propofol (Diprivan -) 100 mls @ 1.63 mls/hr IVPB TITR [facility]; 5 MCG/KG/MIN PRN Reason: Protocol Last Admin: 05/30/17 14:46 Dose: Not Given Trimethoprim/Sulfamethoxazole (100 mg/ Dextrose) 256.25 mls @ 256.25 mls/hr IVPB Q8H-IV [facility] Last Admin: 05/31/17 10:10 Dose: 256.25 mls/hr Linezolid (Zyvox 600 Mg Premix Bag (Restricted To Id) -) 300 mls @ 300 mls/hr IVPB BID [facility] PRN Reason: Protocol Last Admin: 05/30/17 21:43 Dose: 300 mls/hr Levothyroxine Sodium (Synthroid Injection -) 44 mcg IVPUSH ACBK [facility] Last Admin: 05/31/17 06:40 Dose: 44 mcg Nystatin (Mycostatin Cream -) 1 applic TP BID [facility] Last Admin: 05/31/17 09:26 Dose: 1 applic Pantoprazole Sodium (Protonix Iv) 40 mg IVPUSH BID [facility] Last Admin: 05/31/17 09:25 Dose: 40 mg - Objective Vital Signs: Vital Signs Temperature 99.1 F 05/31/17 10:00 Pulse Rate 95 H 05/31/17 10:21 Respiratory Rate 16 05/31/17 10:00 Blood Pressure 134/75 05/31/17 10:00 O2 Sat by Pulse Oximetry (%) 92 L 05/31/17 10:21 Eyes: Yes: WNL, Conjunctiva Clear, EOM Intact HENT: Yes: WNL, Atraumatic, Normocephalic Neck: Yes: WNL, Supple, Trachea Midline Cardiovascular: Yes: WNL, Regular Rate and Rhythm Respiratory: Yes: WNL, Regular, CTA Bilaterally Gastrointestinal: Yes: WNL, Normal Bowel Sounds Genitourinary: Yes: WNL Musculoskeletal: Yes: WNL Extremities: Yes: WNL Edema: No Integumentary: Yes: WNL Neurological: Yes: WNL, Alert, Oriented ...Motor Strength: WNL Psychiatric: Yes: WNL Labs: CBC, BMP 05/31/17 06:10 05/28/17 05:50 INR, PTT INR 1.11 (0.82-1.09) 05/12/17 01:35 Problem List - Problems (1) Acute respiratory failure with hypoxia and hypercapnia Code(s): J96.01 - ACUTE RESPIRATORY FAILURE WITH HYPOXIA J96.02 - ACUTE RESPIRATORY FAILURE WITH HYPERCAPNIA (2) Altered mental status, unspecified Code(s): R41.82 - ALTERED MENTAL STATUS, UNSPECIFIED (3) Anemia Code(s): D64.9 - ANEMIA, UNSPECIFIED Qualifiers: Qualified Code(s): D62 - Acute posthemorrhagic anemia; D62 - Acute posthemorrhagic anemia (4) Aspiration pneumonia Code(s): J69.0 - PNEUMONITIS DUE TO INHALATION OF FOOD AND VOMIT (5) Dementia Code(s): F03.90 - UNSPECIFIED DEMENTIA WITHOUT BEHAVIORAL DISTURBANCE (6) Fever Code(s): R50.9 - FEVER, UNSPECIFIED (7) Pancytopenia Code(s): D61.818 - OTHER PANCYTOPENIA (8) Shock Code(s): R57.9 - SHOCK, UNSPECIFIED (9) UTI (urinary tract infection) Code(s): N39.0 - URINARY TRACT INFECTION, SITE NOT SPECIFIED (10) Aortic stenosis Code(s): I35.0 - NONRHEUMATIC AORTIC (VALVE) STENOSIS (11) CHF (congestive heart failure) Code(s): I50.9 - HEART FAILURE, UNSPECIFIED Qualifiers: Qualified Code(s): I50.9 - Heart failure, unspecified; I50.9 - Heart failure, unspecified; I50.9 - Heart failure, unspecified; I50.9 - Heart failure , unspecified (12) HTN (hypertension) Code(s): I10 - ESSENTIAL (PRIMARY) HYPERTENSION (13) Hypothyroidism Code(s): E03.9 - HYPOTHYROIDISM, UNSPECIFIED (14) Macrocytosis Code(s): D75.89 - OTHER SPECIFIED DISEASES OF BLOOD AND BLOOD-FORMING ORGANS (15) Osteoporosis Code(s): M81.0 - AGE-RELATED OSTEOPOROSIS W/O CURRENT PATHOLOGICAL FRACTURE (16) Paroxysmal SVT (supraventricular tachycardia) Code(s): I47.1 - SUPRAVENTRICULAR TACHYCARDIA (17) Smoking Code(s): F17.200 - NICOTINE DEPENDENCE, UNSPECIFIED, UNCOMPLICATED (18) Smoking addiction Code(s): F17.200 - NICOTINE DEPENDENCE, UNSPECIFIED, UNCOMPLICATED Assessment/Plan - Problems 82 year old woman with h/o chronic mild systolic CHF, CAD s/p stent 2 years ago admitted with frequent falls, ams, intubated for hypoxic respiratory failure, dementia. Respiratory failure-intubated, now extubated -euvolemic, intravascularly depleted -hold diuresis, fluids as needed -h/o mild chronic systolic CHF Elevated troponin -believed to be due to sepsis, ROBSON, systolic CHF, not ACS -echo showed mild LV systolic dysfunction, minimal pericardial effusion -presumed not on ASA due to sig Anemia during admission -cont statin HTN-history -septic shock during admission required pressors -avoid anti-HTN meds for now aside from cardizem that she has been tolerating cc time spent 36 min
--- NOTE | 2017-05-31 11:11 | PN ---
Progress Note, Physician Chief Complaint: Unable to obtain - Current Medication List Current Medications: Active Medications Atorvastatin Calcium (Lipitor -) 20 mg PO HS [facility] Last Admin: 05/30/17 21:42 Dose: 20 mg Diltiazem HCl (Cardizem -) 30 mg PEG TID [facility] Last Admin: 05/31/17 05:33 Dose: 30 mg Propofol (Diprivan -) 100 mls @ 1.63 mls/hr IVPB TITR [facility]; 5 MCG/KG/MIN PRN Reason: Protocol Last Admin: 05/30/17 14:46 Dose: Not Given Trimethoprim/Sulfamethoxazole (100 mg/ Dextrose) 256.25 mls @ 256.25 mls/hr IVPB Q8H-IV [facility] Last Admin: 05/31/17 10:10 Dose: 256.25 mls/hr Linezolid (Zyvox 600 Mg Premix Bag (Restricted To Id) -) 300 mls @ 300 mls/hr IVPB BID [facility] PRN Reason: Protocol Last Admin: 05/30/17 21:43 Dose: 300 mls/hr Levothyroxine Sodium (Synthroid Injection -) 44 mcg IVPUSH ACBK [facility] Last Admin: 05/31/17 06:40 Dose: 44 mcg Nystatin (Mycostatin Cream -) 1 applic TP BID [facility] Last Admin: 05/31/17 09:26 Dose: 1 applic Pantoprazole Sodium (Protonix Iv) 40 mg IVPUSH BID [facility] Last Admin: 05/31/17 09:25 Dose: 40 mg - Objective Vital Signs: Vital Signs Temperature 37.3 C 05/31/17 10:00 Pulse Rate 95 H 05/31/17 10:21 Respiratory Rate 16 05/31/17 10:00 Blood Pressure 134/75 05/31/17 10:00 O2 Sat by Pulse Oximetry (%) 92 L 05/31/17 10:21 Constitutional: Yes: No Distress, Calm, Thin Cardiovascular: Yes: Regular Rate and Rhythm. No: Gallop, Murmur, Rub Respiratory: Yes: Regular, On Nasal O2, Rhonchi. No: CTA Bilaterally, Rales, Wheezes Gastrointestinal: Yes: Normal Bowel Sounds, Soft. No: Distention, Tenderness Extremities: Yes: WNL Edema: No Labs: CBC, BMP 05/31/17 06:10 05/28/17 05:50 INR, PTT INR 1.11 (0.82-1.09) 05/12/17 01:35 Problem List - Problems (1) UTI (urinary tract infection) Code(s): N39.0 - URINARY TRACT INFECTION, SITE NOT SPECIFIED (2) Dementia Code(s): F03.90 - UNSPECIFIED DEMENTIA WITHOUT BEHAVIORAL DISTURBANCE (3) Pancytopenia Code(s): D61.818 - OTHER PANCYTOPENIA (4) CHF (congestive heart failure) Code(s): I50.9 - HEART FAILURE, UNSPECIFIED Qualifiers: Qualified Code(s): I50.9 - Heart failure, unspecified; I50.9 - Heart failure, unspecified; I50.9 - Heart failure, unspecified; I50.9 - Heart failure , unspecified (5) HTN (hypertension) Code(s): I10 - ESSENTIAL (PRIMARY) HYPERTENSION (6) Hypothyroidism Code(s): E03.9 - HYPOTHYROIDISM, UNSPECIFIED (7) Aspiration pneumonia Code(s): J69.0 - PNEUMONITIS DUE TO INHALATION OF FOOD AND VOMIT (8) Anemia Code(s): D64.9 - ANEMIA, UNSPECIFIED Qualifiers: Qualified Code(s): D62 - Acute posthemorrhagic anemia; D62 - Acute posthemorrhagic anemia (9) Septic shock Code(s): A41.9 - SEPSIS, UNSPECIFIED ORGANISM R65.21 - SEVERE SEPSIS WITH SEPTIC SHOCK (10) Acute respiratory failure Code(s): J96.00 - ACUTE RESPIRATORY FAILURE, UNSP W HYPOXIA OR HYPERCAPNIA Assessment/Plan (1) Acute respiratory failure -extubated (2) Elevated troponin -trending down -suspect stress induced -cardiology following (3) Seizure -resolved (4) CHF exacerbation -received lasix last week, but not on scheduled dose -monitor (5) Pneumonia -previous cultures growing stenotrophomonas -ID following -continue IV bactrim (6) UTI -continue linezolid per ID (7) Hyponatremia -continue to improve (8) Hypothyroid -continue IV levothyroxine -plan to transition back to oral/PEG tube -will increase to 50mcg secondary to TFTs (9) Anemia -stable -appreciate GI assistance
[2017-05-31] MEDS: LINEZOLID 600 MG PREMIX BAG 300 ML IVPB SCH ×2 (12:46→21:08)
--- NOTE | 2017-05-31 14:22 | PN ---
Teaching Attending Note Name of Resident: Reshma Recio ATTENDING PHYSICIAN STATEMENT I saw and evaluated the patient. I reviewed the resident's note and discussed the case with the resident. I agree with the resident's findings and plan as documented. SUBJECTIVE: Pt seen and examined in the ICU. Remains extubated. Pt nonverbal. No fevers recorded. OBJECTIVE: Last Vital Signs Temp Pulse Resp BP Pulse Ox 99.1 F 92 H 16 142/73 96 05/31/17 10:00 05/31/17 12:00 05/31/17 12:00 05/31/17 12:00 05/31/17 12:00 Intake & Output 05/29/17 05/30/17 05/30/17 05/31/17 00:59 00:59 23:59 23:59 Intake Total 1300 Output Total 600 Balance 700 Weight 140 lb 12.8 oz Gen: mildly tachypneic at rest Heart: RRR Lung: scattered rhonchi Abd: soft, nontender Ext: + edema CBC, BMP 05/31/17 06:10 05/28/17 05:50 Active Medications Atorvastatin Calcium (Lipitor -) 20 mg PO HS [facility] Diltiazem HCl (Cardizem -) 30 mg PEG TID [facility] Linezolid (Zyvox 600 Mg Premix Bag (Restricted To Id) -) 300 mls @ 300 mls/hr IVPB BID [facility] PRN Reason: Protocol Propofol (Diprivan -) 100 mls @ 1.63 mls/hr IVPB TITR [facility]; 5 MCG/KG/MIN PRN Reason: Protocol Trimethoprim/Sulfamethoxazole (100 mg/ Dextrose) 256.25 mls @ 256.25 mls/hr IVPB Q8H-IV [facility] Levothyroxine Sodium (Synthroid Injection -) 44 mcg IVPUSH ACBK [facility] Nystatin (Mycostatin Cream -) 1 applic TP BID [facility] Pantoprazole Sodium (Protonix Iv) 40 mg IVPUSH BID [facility] ASSESSMENT AND PLAN: s/p Acute Hypoxic Respiratory Failure Acute CVA Seizure from Above UTI Pneumonia +Troponins likely from Demand Ischemia LV Systolic Dysfunction Hyponatremia Dementia - continue antibiotics per ID - aspiration precautions - O2 to keep SpO2 >90% - monitor lytes - can transfer to telemetry critical care time spent in reviewing chart, evaluating patient and formulating plan 35 min
--- NOTE | 2017-05-31 14:27 | PN ---
Progress Note, Physician History of Present Illness: patient extubated calm awake alert - Current Medication List Current Medications: Active Medications Atorvastatin Calcium (Lipitor -) 20 mg PO HS JOC[facility] Diltiazem HCl (Cardizem -) 30 mg PEG TID JOC[facility]NE Linezolid (Zyvox 600 Mg Premix Bag (Restricted To Id) -) 300 mls @ 300 mls/hr IVPB BID JOCELYNE PRN Reason: Protocol Propofol (Diprivan -) 100 mls @ 1.63 mls/hr IVPB TITR JOCELYNE; 5 MCG/KG/MIN PRN Reason: Protocol Trimethoprim/Sulfamethoxazole (100 mg/ Dextrose) 256.25 mls @ 256.25 mls/hr IVPB Q8H-IV [facility] Levothyroxine Sodium (Synthroid Injection -) 44 mcg IVPUSH ACBK J[facility] Nystatin (Mycostatin Cream -) 1 applic TP BID JOC[facility]NE Pantoprazole Sodium (Protonix Iv) 40 mg IVPUSH BID JOCELYNE - Objective Vital Signs: Vital Signs Temperature 99.1 F 05/31/17 10:00 Pulse Rate 92 H 05/31/17 12:00 Respiratory Rate 16 05/31/17 12:00 Blood Pressure 142/73 05/31/17 12:00 O2 Sat by Pulse Oximetry (%) 96 05/31/17 12:00 Constitutional: Yes: No Distress, Calm Cardiovascular: Yes: Regular Rate and Rhythm Respiratory: Yes: Regular, On Nasal O2, Rhonchi Gastrointestinal: Yes: Normal Bowel Sounds, Soft, Other (peg in place) Musculoskeletal: Yes: WNL Edema: LLE: Trace, RLE: Trace Neurological: Yes: Alert, Other Psychiatric: Yes: Alert Labs: CBC, BMP 05/31/17 06:10 05/28/17 05:50 INR, PTT INR 1.11 (0.82-1.09) 05/12/17 01:35 Assessment/Plan Problem List - Problems (1) UTI (urinary tract infection) Code(s): N39.0 - URINARY TRACT INFECTION, SITE NOT SPECIFIED (2) Dementia Code(s): F03.90 - UNSPECIFIED DEMENTIA WITHOUT BEHAVIORAL DISTURBANCE (3) Pancytopenia Code(s): D61.818 - OTHER PANCYTOPENIA (4) CHF (congestive heart failure) Code(s): I50.9 - HEART FAILURE, UNSPECIFIED Qualifiers: Congestive heart failure type: unspecified congestive heart failure type Congestive heart failure chronicity: chronic Qualified Code(s): I50.9 - Heart failure, unspecified (5) HTN (hypertension) Code(s): I10 - ESSENTIAL (PRIMARY) HYPERTENSION (6) Hypothyroidism Code(s): E03.9 - HYPOTHYROIDISM, UNSPECIFIED Aspiration pneumonia Code(s): J69.0 - PNEUMONITIS DUE TO INHALATION OF FOOD AND VOMIT lactic acidosis plan continue nutrition abx to continue till the 11th rest as per primary team patient looks good rest as per icu cc time 40
--- NOTE | 2017-05-31 16:20 | PN ---
Physical Exam: SUBJECTIVE: Patient seen and examined at bedside. No acute events overnight. Pt has increased secretions, and still has L IJ. Extubated yesterday. Resting comfortably. For transfer to tele. Order is in OBJECTIVE: Vital Signs Period Temp Pulse Resp BP Sys/Damon Pulse Ox Last 24 Hr 98.1 F-99.4 F 84-105 11-30 111-142/56-75 92-99 GENERAL: The patient is awake, on 3L NC 02 sat well HEAD: Normal with no signs of trauma. EYES: PERRL, extraocular movements intact, sclera anicteric, conjunctiva clear. NECK: Trachea midline, supple. LUNGS: Breath sounds equal, clear to auscultation bilaterally, no wheezes, no crackles, no accessory muscle use. HEART: Regular rate and rhythm, S1, S2 without murmur, rub or gallop. ABDOMEN: Soft, nontender, nondistended, normoactive bowel sounds, no guarding, no rebound EXTREMITIES: 2+ dorsalis pedis pulses, warm, well-perfused, no edema. NEUROLOGICAL: difficult to assess d/t pt's dementia Laboratory Results - last 24 hr 05/31/17 05/31/17 06:10 06:10 WBC 3.4 L RBC 2.70 L Hgb 9.1 L Hct 26.5 L MCV 98.2 H MCH 33.7 MCHC 34.3 RDW 17.8 H Plt Count 115 L MPV 7.5 PTT (Actin FS) 27.7 Active Medications Generic Name Dose Route Start Last Admin Trade Name Freq PRN Reason Stop Dose Admin Atorvastatin Calcium 20 mg 05/31/17 22:00 Lipitor - PO HS JOCELYNE Diltiazem HCl 30 mg 05/31/17 22:00 Cardizem - PEG TID JOCELYNE Linezolid 300 mls @ 300 mls/hr 05/31/17 22:00 Zyvox 600 Mg Premix Bag (Restricted To Id) - IVPB BID JOCELYNE Protocol Propofol 100 mls @ 1.63 mls/hr 05/31/17 14:11 Diprivan - IVPB TITR JOCELYNE Protocol 5 MCG/KG/MIN Trimethoprim/Sulfamethoxazole 256.25 mls @ 256.25 mls/hr 05/31/17 18:00 100 mg/ Dextrose IVPB Q8H-IV JOCELYNE Levothyroxine Sodium 44 mcg 06/01/17 07:00 Synthroid Injection - IVPUSH ACBK [facility] Nystatin 1 applic 05/31/17 22:00 Mycostatin Cream - TP BID [facility] Pantoprazole Sodium 40 mg 05/31/17 22:00 Protonix Iv IVPUSH BID [facility] ASSESSMENT/PLAN: 82 F w/ PMH hypothyroidism, HTN, CAD (s/p stent placement 2 years ago), former smoker, who presented to the ED from PCP's office for AMS and frequent falls. Pt has had a long and arduous hospital course and was admitted to ICU following a rapid response where she was found to be in acute hypoxic respiratory failure , and was thus transferred to ICU. En route, she seized, and once in the unit, she was intubated. PULM #acute hypoxic resp failure -pt extubated yesterday -on 3L NC 02, sat well at 95% -Pt may need tracheostomy in the future, if fails on NC. Son has consented HEME #anemia -Hb currently stable at 9.1 -will transfuse if pt Hb <7 -will continue to monitor CBC NEURO #CVA -CT revealed left frontal lesion suspicious for ischemic hemorrhage -seen by neurology. No intervention recommended RENAL #Hyponatremia-resolved -last Na reading 133 -Will continue to monitor BMP ENDOCRINE #Hypothyroid -on synthroid via PEG CARDIO Elevated troponins, most likely 2/2 sepsis -peak of 3.14 in the setting of sepsis -per cardio, not likely to be ACS #FEN -will continue to monitor electrolytes -osmolite tube feeds #ACCESS -will need to F/u peripheral access, need to remove L IJ line #PPX -GI ppx: protonix IV 40 BID -DVT: no heparin in setting of possible acute stroke #Dispo -for transfer to tele. Order is in Visit type - Emergency Visit Emergency Visit: No - New Patient This patient is new to me today: No - Critical Care Critical Care patient: Yes Total Critical Care Time (in minutes): 42 Critical Care Statement: The care of this patient involved high complexity decision making to prevent further life threatening deterioration of the patient 's condition and/or to evaluate & treat vital organ system(s) failure or risk of failure.
[2017-05-31] MEDS: PROPOFOL 100 ML IVPB SCH (16:35)
[2017-05-31] MEDS: ATORVASTATIN CA 20 MG TABLET (FP) PO SCH (21:05)
[2017-06-01] MEDS: WATER IVPB SCH ×3 (01:51→17:59)
[2017-06-01] MEDS: DEXTROSE 5% IVPB SCH ×3 (01:51→17:59)
[2017-06-01] MEDS: TRIMETHOPRIM IVPB SCH ×3 (01:51→17:59)
[2017-06-01] MEDS: SULFAMETHOXAZOLE IVPB SCH ×3 (01:51→17:59)
[2017-06-01] MEDS: dilTIAZem HCL 30 MG TABLET (FP) PEG SCH ×3 (05:41→21:04)
[2017-06-01] MEDS ORDERED: LEVOTHYROXINE SODIUM 100 MCG VIAL IVPUSH SCH (07:00)
[2017-06-01 07:31] LABS: BASOPHIL 0.4 % (0-2.0); EOSINOPHIL 2.5 % (0-4.5); MCH 34.2 pg (25.7-33.7); MCHC 35.2 g/dl (32.0-36.0); MEAN CELL VOLUME 97.4 fl (80-96); MEAN PLT VOLUME 7.1 fl (7.5-11.1); NEUTROPHILS 69.7 % (42.8-82.8); PLATELET COUNT 105 K/MM3 (134-434); RDW 17.2 % (11.6-15.6); WHITE BLOOD COUNT 3.6 K/mm3 (4.0-10.0)
[2017-06-01 07:58] LABS: ANION GAP 7 (8-16); CALCIUM 7.2 mg/dL (8.5-10.1); CO2 28 mmol/L (21-32); GLUCOSE,RANDOM 119 mg/dL (74-106)
[2017-06-01 07:59] LABS: CREATININE 0.6 mg/dL (0.55-1.02)
--- NOTE | 2017-06-01 10:20 | PN ---
Progress Note, Physician History of Present Illness: PULMONARY AWAKE,NON-VERBAL,-RESP DISTRESS - Current Medication List Current Medications: Active Medications Atorvastatin Calcium (Lipitor -) 20 mg PO HS [facility] Last Admin: 05/31/17 21:05 Dose: 20 mg Diltiazem HCl (Cardizem -) 30 mg PEG TID [facility] Last Admin: 06/01/17 05:41 Dose: 30 mg Linezolid (Zyvox 600 Mg Premix Bag (Restricted To Id) -) 300 mls @ 300 mls/hr IVPB BID JOCELYNE PRN Reason: Protocol Last Admin: 05/31/17 21:08 Dose: 300 mls/hr Propofol (Diprivan -) 100 mls @ 1.63 mls/hr IVPB TITR JOCELYNE; 5 MCG/KG/MIN PRN Reason: Protocol Last Admin: 05/31/17 16:35 Dose: Not Given Trimethoprim/Sulfamethoxazole (100 mg/ Dextrose) 256.25 mls @ 256.25 mls/hr IVPB Q8H-IV [facility] Last Admin: 06/01/17 01:51 Dose: 256.25 mls/hr Levothyroxine Sodium (Synthroid Injection -) 44 mcg IVPUSH ACBK [facility] Last Admin: 06/01/17 06:11 Dose: 44 mcg Nystatin (Mycostatin Cream -) 1 applic TP BID [facility] Last Admin: 05/31/17 21:05 Dose: 1 applic Pantoprazole Sodium (Protonix Iv) 40 mg IVPUSH BID [facility] Last Admin: 05/31/17 21:07 Dose: 40 mg - Objective Vital Signs: Vital Signs Temperature 98.5 F 06/01/17 04:00 Pulse Rate 94 H 06/01/17 04:00 Respiratory Rate 18 06/01/17 04:00 Blood Pressure 133/72 06/01/17 06:00 O2 Sat by Pulse Oximetry (%) 96 05/31/17 21:00 Constitutional: Yes: Well Nourished, Calm Eyes: Yes: WNL HENT: Yes: WNL Neck: Yes: WNL Cardiovascular: Yes: Regular Rate and Rhythm, S1, S2 Respiratory: Yes: Other (POOR INSPIRATORY EFFORT ,FEW SCATTERED KEO RHONCHI) Gastrointestinal: Yes: Normal Bowel Sounds, Soft Extremities: Yes: WNL Edema: No Labs: CBC, BMP 06/01/17 05:28 06/01/17 05:28 INR, PTT INR 1.11 (0.82-1.09) 05/12/17 01:35 - ....Imaging Chest X-ray: Report Reviewed, Image Reviewed Problem List - Problems (1) Acute on chronic systolic (congestive) heart failure Code(s): I50.23 - ACUTE ON CHRONIC SYSTOLIC (CONGESTIVE) HEART FAILURE (2) Acute respiratory failure Code(s): J96.00 - ACUTE RESPIRATORY FAILURE, UNSP W HYPOXIA OR HYPERCAPNIA (3) Altered mental status, unspecified Code(s): R41.82 - ALTERED MENTAL STATUS, UNSPECIFIED (4) Anemia Code(s): D64.9 - ANEMIA, UNSPECIFIED Qualifiers: Anemia type: other cause Other causes of anemia: acute posthemorrhagic Qualified Code(s): D62 - Acute posthemorrhagic anemia; D62 - Acute posthemorrhagic anemia (5) Aspiration pneumonia Code(s): J69.0 - PNEUMONITIS DUE TO INHALATION OF FOOD AND VOMIT (6) Dementia Code(s): F03.90 - UNSPECIFIED DEMENTIA WITHOUT BEHAVIORAL DISTURBANCE (7) CHF (congestive heart failure) Code(s): I50.9 - HEART FAILURE, UNSPECIFIED Qualifiers: Congestive heart failure type: unspecified congestive heart failure type Congestive heart failure chronicity: chronic Qualified Code(s): I50.9 - Heart failure, unspecified; I50.9 - Heart failure, unspecified; I50.9 - Heart failure, unspecified; I50.9 - Heart failure, unspecified (8) HTN (hypertension) Code(s): I10 - ESSENTIAL (PRIMARY) HYPERTENSION (9) CVA (cerebral vascular accident) Code(s): I63.9 - CEREBRAL INFARCTION, UNSPECIFIED Assessment/Plan ASSESSMENT AND PLAN: s/p Acute Hypoxic Respiratory Failure Acute CVA Seizure from Above UTI Pneumonia +Troponins likely from [place] Ischemia LV Systolic Dysfunction Hyponatremia Dementia Anemia - continue antibiotics per ID - aspiration precautions - O2 to keep SpO2 >90% - monitor lytes,h+h - f/u chest x-rays DR BHAT
[2017-06-01] MEDS: PANTOPRAZOLE SODIUM 40 MG VIAL IVPUSH SCH ×2 (10:24→21:04)
[2017-06-01] MEDS: NYSTATIN 100,000 UNIT/GM TOPICAL CREAM 15 GM TUBE TP SCH ×2 (10:24→21:04)
--- NOTE | 2017-06-01 11:01 | PN ---
Progress Note, Physician Chief Complaint: Unable to obtain, patient awake but not verbal - Current Medication List Current Medications: Active Medications Atorvastatin Calcium (Lipitor -) 20 mg PO HS [facility] Last Admin: 05/31/17 21:05 Dose: 20 mg Diltiazem HCl (Cardizem -) 30 mg PEG TID [facility] Last Admin: 06/01/17 05:41 Dose: 30 mg Linezolid (Zyvox 600 Mg Premix Bag (Restricted To Id) -) 300 mls @ 300 mls/hr IVPB BID JOCELYNE PRN Reason: Protocol Last Admin: 05/31/17 21:08 Dose: 300 mls/hr Propofol (Diprivan -) 100 mls @ 1.63 mls/hr IVPB TITR JOCELYNE; 5 MCG/KG/MIN PRN Reason: Protocol Last Admin: 05/31/17 16:35 Dose: Not Given Trimethoprim/Sulfamethoxazole (100 mg/ Dextrose) 256.25 mls @ 256.25 mls/hr IVPB Q8H-IV [facility] Last Admin: 06/01/17 01:51 Dose: 256.25 mls/hr Levothyroxine Sodium (Synthroid Injection -) 44 mcg IVPUSH ACBK [facility] Last Admin: 06/01/17 06:11 Dose: 44 mcg Nystatin (Mycostatin Cream -) 1 applic TP BID [facility] Last Admin: 06/01/17 10:24 Dose: 1 applic Pantoprazole Sodium (Protonix Iv) 40 mg IVPUSH BID [facility] Last Admin: 06/01/17 10:24 Dose: 40 mg - Objective Vital Signs: Vital Signs Temperature 36.9 C 06/01/17 04:00 Pulse Rate 94 H 06/01/17 04:00 Respiratory Rate 18 06/01/17 04:00 Blood Pressure 133/72 06/01/17 06:00 O2 Sat by Pulse Oximetry (%) 96 05/31/17 21:00 Constitutional: Yes: Well Nourished, No Distress, Calm Cardiovascular: Yes: Regular Rate and Rhythm. No: Gallop, Murmur, Rub Respiratory: Yes: Regular, CTA Bilaterally, On Nasal O2. No: Rales, Rhonchi, Wheezes Gastrointestinal: Yes: Normal Bowel Sounds, Soft. No: Distention, Tenderness Extremities: Yes: WNL Edema: No Labs: CBC, BMP 06/01/17 05:28 06/01/17 05:28 INR, PTT INR 1.11 (0.82-1.09) 05/12/17 01:35 Problem List - Problems (1) UTI (urinary tract infection) Code(s): N39.0 - URINARY TRACT INFECTION, SITE NOT SPECIFIED (2) Dementia Code(s): F03.90 - UNSPECIFIED DEMENTIA WITHOUT BEHAVIORAL DISTURBANCE (3) Pancytopenia Code(s): D61.818 - OTHER PANCYTOPENIA (4) CHF (congestive heart failure) Code(s): I50.9 - HEART FAILURE, UNSPECIFIED Qualifiers: Congestive heart failure type: unspecified congestive heart failure type Congestive heart failure chronicity: chronic Qualified Code(s): I50.9 - Heart failure, unspecified; I50.9 - Heart failure, unspecified; I50.9 - Heart failure, unspecified; I50.9 - Heart failure, unspecified (5) HTN (hypertension) Code(s): I10 - ESSENTIAL (PRIMARY) HYPERTENSION (6) Hypothyroidism Code(s): E03.9 - HYPOTHYROIDISM, UNSPECIFIED (7) Aspiration pneumonia Code(s): J69.0 - PNEUMONITIS DUE TO INHALATION OF FOOD AND VOMIT (8) Anemia Code(s): D64.9 - ANEMIA, UNSPECIFIED Qualifiers: Anemia type: other cause Other causes of anemia: acute posthemorrhagic Qualified Code(s): D62 - Acute posthemorrhagic anemia; D62 - Acute posthemorrhagic anemia (9) Septic shock Code(s): A41.9 - SEPSIS, UNSPECIFIED ORGANISM R65.21 - SEVERE SEPSIS WITH SEPTIC SHOCK (10) Acute respiratory failure Code(s): J96.00 - ACUTE RESPIRATORY FAILURE, UNSP W HYPOXIA OR HYPERCAPNIA Assessment/Plan (1) Acute respiratory failure -extubated -now on nasal cannula -monitor (2) Elevated troponin -stress induced (3) Seizure -resolved -no need for seizure treatment (4) CHF exacerbation -resolved (5) Pneumonia -previous cultures growing stenotrophomonas -ID following -continue IV bactrim (6) UTI -continue linezolid per ID (7) Hyponatremia -stable (8) Hypothyroid -continue IV levothyroxine -plan to transition back to oral/PEG tube -will increase to 50mcg secondary to TFTs (9) Anemia -stable -appreciate GI assistance Dispo -plan for discharge to SNF when off IV antibiotics
[2017-06-01] MEDS: LINEZOLID 600 MG PREMIX BAG 300 ML IVPB SCH ×2 (11:36→21:04)
--- NOTE | 2017-06-01 11:47 | PN ---
Progress Note (short form) - Note Progress Note: NEUROLOGY FOLLOW-UP: Events reviewed, Pt. examined. Now extubated. Breathing comfortably. On Zyvox, Bactrim for UTI. O L-Thyroxine, atorvastatin. AL: Neck supple. Swelling, ecchymosis over the R side of neck. + rectal tube and Beck. NEURO: Awake, alert, staring. Makes eye contact. +Glabella, snout. Follows no commands. Some sparse gibberish speech. No facial weakness. Full guzman to threat. Full EOM's Moderate, diffuse, proximal weakness is likely present. Withdraws all 4's to pinch. Areflexic in the legs. Plantars silent. 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 SUGGEST: Repeat B12, TSH, CK Mobilize with bedside PT Nutritional support (high protein feeds). Avoid steroids Thank you very much, Hugo Adams MD
--- NOTE | 2017-06-01 15:19 | PN ---
Progress Note, Physician History of Present Illness: awake not verbal looks at you - Current Medication List Current Medications: Active Medications Atorvastatin Calcium (Lipitor -) 20 mg PO HS [facility] Last Admin: 05/31/17 21:05 Dose: 20 mg Diltiazem HCl (Cardizem -) 30 mg PEG TID [facility] Last Admin: 06/01/17 14:27 Dose: 30 mg Linezolid (Zyvox 600 Mg Premix Bag (Restricted To Id) -) 300 mls @ 300 mls/hr IVPB BID JOCELYNE PRN Reason: Protocol Last Admin: 06/01/17 11:36 Dose: 300 mls/hr Propofol (Diprivan -) 100 mls @ 1.63 mls/hr IVPB TITR JOCELYNE; 5 MCG/KG/MIN PRN Reason: Protocol Last Admin: 05/31/17 16:35 Dose: Not Given Trimethoprim/Sulfamethoxazole (100 mg/ Dextrose) 256.25 mls @ 256.25 mls/hr IVPB Q8H-IV [facility] Last Admin: 06/01/17 11:36 Dose: 256.25 mls/hr Levothyroxine Sodium (Synthroid Injection -) 44 mcg IVPUSH ACBK [facility] Last Admin: 06/01/17 06:11 Dose: 44 mcg Nystatin (Mycostatin Cream -) 1 applic TP BID [facility] Last Admin: 06/01/17 10:24 Dose: 1 applic Pantoprazole Sodium (Protonix Iv) 40 mg IVPUSH BID [facility] Last Admin: 06/01/17 10:24 Dose: 40 mg - Objective Vital Signs: Vital Signs Temperature 97.9 F 06/01/17 13:57 Pulse Rate 111 H 06/01/17 13:57 Respiratory Rate 15 06/01/17 13:57 Blood Pressure 145/81 06/01/17 13:57 O2 Sat by Pulse Oximetry (%) 97 06/01/17 10:00 Constitutional: Yes: No Distress, Calm Cardiovascular: Yes: Regular Rate and Rhythm Respiratory: Yes: Regular, CTA Bilaterally Gastrointestinal: Yes: Normal Bowel Sounds, Soft, Other (peg in place) Musculoskeletal: Yes: WNL Extremities: Yes: WNL Neurological: Yes: Alert, Oriented Psychiatric: Yes: Alert Labs: CBC, BMP 06/01/17 05:28 06/01/17 05:28 INR, PTT INR 1.11 (0.82-1.09) 05/12/17 01:35 Assessment/Plan Problem List - Problems (1) UTI (urinary tract infection) Code(s): N39.0 - URINARY TRACT INFECTION, SITE NOT SPECIFIED (2) Dementia Code(s): F03.90 - UNSPECIFIED DEMENTIA WITHOUT BEHAVIORAL DISTURBANCE (3) Pancytopenia Code(s): D61.818 - OTHER PANCYTOPENIA (4) CHF (congestive heart failure) Code(s): I50.9 - HEART FAILURE, UNSPECIFIED Qualifiers: Congestive heart failure type: unspecified congestive heart failure type Congestive heart failure chronicity: chronic Qualified Code(s): I50.9 - Heart failure, unspecified (5) HTN (hypertension) Code(s): I10 - ESSENTIAL (PRIMARY) HYPERTENSION (6) Hypothyroidism Code(s): E03.9 - HYPOTHYROIDISM, UNSPECIFIED Aspiration pneumonia Code(s): J69.0 - PNEUMONITIS DUE TO INHALATION OF FOOD AND VOMIT lactic acidosis plan continue nutrition abx to continue till the 11th rest as per primary team patient looks good improving
[2017-06-01] MEDS: PROPOFOL 100 ML IVPB SCH (17:57)
[2017-06-01] MEDS: ATORVASTATIN CA 20 MG TABLET (FP) PO SCH (21:04)
[2017-06-02] MEDS: WATER IVPB SCH ×3 (01:00→17:50)
[2017-06-02] MEDS: SULFAMETHOXAZOLE IVPB SCH ×3 (01:00→17:50)
[2017-06-02] MEDS: DEXTROSE 5% IVPB SCH ×3 (01:00→17:50)
[2017-06-02] MEDS: TRIMETHOPRIM IVPB SCH ×3 (01:00→17:50)
--- NOTE | 2017-06-02 03:04 | PN ---
Progress Note, Physician Chief Complaint: Pt opens eyes; muffled moans; does not follow commands. History of Present Illness: 82 year old white female with PMH of hypothyroidism, smoking disorder, and mild systolic CHF, with moderate TR, mild MR and AR, noted on 2017 ECHO; (s/p stent 2 years ago for suspected DC) presenting with repeat falls, and altered mental status over the past few months. Patient is poor historian so her son at bedside was complementing the interview. According to him she has fallen 5 times in the last 3-4 months despite her use of a walker. She hit her head two weeks prior during one of the falls but did not seek attention. She did not lose consciousness during that fall. She describes the falls as "my legs giving out" which is corroborated by her son who witnessed one of the events. The son claims that she also has had difficulty keep track of time and with short term memory. Her memory issues are worsened at night. She lives at home alone and has had trouble with her ADLs. She is not on blood thinners. She has also had decreased food intake over the past few months although she has only lost a few pounds. She was seen by her PCP Dr. Mitchell earlier today and then sent to the ED for admission for altered mental status. Denies fevers, chills, nausea, vomiting, diarrhea, constipation, urinary symptoms, visual changes, headaches, presyncopal sensation, or palpitations. Her PCP is Dr. Mitchell. - Current Medication List Current Medications: Active Medications Atorvastatin Calcium (Lipitor -) 20 mg PO HS [facility] Last Admin: 06/01/17 21:04 Dose: 20 mg Diltiazem HCl (Cardizem -) 30 mg PEG TID [facility] Last Admin: 06/01/17 21:04 Dose: 30 mg Linezolid (Zyvox 600 Mg Premix Bag (Restricted To Id) -) 300 mls @ 300 mls/hr IVPB BID JOCELYNE PRN Reason: Protocol Last Admin: 06/01/17 21:04 Dose: 300 mls/hr Propofol (Diprivan -) 100 mls @ 1.63 mls/hr IVPB TITR JOCELYNE; 5 MCG/KG/MIN PRN Reason: Protocol Last Admin: 06/01/17 17:57 Dose: Not Given Trimethoprim/Sulfamethoxazole (100 mg/ Dextrose) 256.25 mls @ 256.25 mls/hr IVPB Q8H-IV [facility] Last Admin: 06/01/17 17:59 Dose: 256.25 mls/hr Levothyroxine Sodium (Synthroid Injection -) 44 mcg IVPUSH ACBK [facility] Last Admin: 06/01/17 06:11 Dose: 44 mcg Nystatin (Mycostatin Cream -) 1 applic TP BID [facility] Last Admin: 06/01/17 21:04 Dose: 1 applic Pantoprazole Sodium (Protonix Iv) 40 mg IVPUSH BID [facility] Last Admin: 06/01/17 21:04 Dose: 40 mg - Objective Vital Signs: Vital Signs Temperature 97.9 F 06/01/17 13:57 Pulse Rate 92 H 06/01/17 22:00 Respiratory Rate 18 06/01/17 22:00 Blood Pressure 133/71 06/01/17 22:00 O2 Sat by Pulse Oximetry (%) 94 L 06/01/17 22:00 Constitutional: Yes: Thin Eyes: Yes: Conjunctiva Clear HENT: Yes: Normocephalic Neck: Yes: Decreased ROM Cardiovascular: Yes: S1, S2 Respiratory: Yes: Diminished Gastrointestinal: Yes: Soft Genitourinary: No: Anuria Musculoskeletal: Yes: Muscle Weakness Extremities: Yes: Cool Edema: No Peripheral Pulses WNL: No Peripheral Pulses: Left Doralis Pedis: 1+, Right Dorsalis Pedis: 1+ Neurological: Yes: Unresponsive (except for opening eyes), Weakness Psychiatric: Yes: Other (dementia) Labs: CBC, BMP 06/01/17 05:28 06/01/17 05:28 INR, PTT INR 1.11 (0.82-1.09) 05/12/17 01:35 Problem List - Problems (1) Acute respiratory failure with hypoxia and hypercapnia Assessment/Plan: reintubated; AC mode. ?ventilator depdendent; may require tracheostomy Code(s): J96.01 - ACUTE RESPIRATORY FAILURE WITH HYPOXIA J96.02 - ACUTE RESPIRATORY FAILURE WITH HYPERCAPNIA (2) Aspiration pneumonia Code(s): J69.0 - PNEUMONITIS DUE TO INHALATION OF FOOD AND VOMIT (3) Dementia Assessment/Plan: neuro w/u noted; OMS: cortical infarct; no acute CVA Code(s): F03.90 - UNSPECIFIED DEMENTIA WITHOUT BEHAVIORAL DISTURBANCE (4) Fever Assessment/Plan: pancytopenia. Code(s): R50.9 - FEVER, UNSPECIFIED (5) Shock Assessment/Plan: Off pressors. Mild systolic dysfunction. Continue fluids. On antibiotics per ID. Rising TNI: likely demand ischemia (respiratory failure; sepsis; systolic CHF; pancytopenia). Code(s): R57.9 - SHOCK, UNSPECIFIED (6) HTN (hypertension) Assessment/Plan: on diltiazem (caution with systolic LV dysfunction, anemia, periods of low BP). Code(s): I10 - ESSENTIAL (PRIMARY) HYPERTENSION (7) Hypothyroidism Assessment/Plan: On Synthroid. TSH low; free T4 mildly elevated. Code(s): E03.9 - HYPOTHYROIDISM, UNSPECIFIED (8) Osteoporosis Code(s): M81.0 - AGE-RELATED OSTEOPOROSIS W/O CURRENT PATHOLOGICAL FRACTURE (9) Smoking Code(s): F17.200 - NICOTINE DEPENDENCE, UNSPECIFIED, UNCOMPLICATED (10) Acute on chronic systolic (congestive) heart failure Assessment/Plan: BNP >11,000 ECHO: mildly reduced LVEF; mild MR; moderate TR; mild AR; trivial pericardial effusion. On diltiazem (caution, given reduced LVEF, low-NL BP); F/u BUN/Cr, electrolytes, Is and Os, weight. Na 132. Avoid excessive dehydration. Code(s): I50.23 - ACUTE ON CHRONIC SYSTOLIC (CONGESTIVE) HEART FAILURE
[2017-06-02] MEDS ORDERED: PT OWN MED DRAWER 7, Y5N ONE ×3 (04:59→16:46)
[2017-06-02 07:29] LABS: ANION GAP 7 (8-16); CO2 28 mmol/L (21-32); CREATININE 0.6 mg/dL (0.55-1.02); GLUCOSE,RANDOM 117 mg/dL (74-106); MAGNESIUM 1.8 mg/dL (1.8-2.4); PHOSPHOROUS 2.1 mg/dL (2.5-4.9)
[2017-06-02 08:26] LABS: BASOPHIL 0.4 % (0-2.0); EOSINOPHIL 3.2 % (0-4.5); MCH 34.4 pg (25.7-33.7); MCHC 35.1 g/dl (32.0-36.0); MEAN PLT VOLUME 7.1 fl (7.5-11.1); NEUTROPHILS 67.9 % (42.8-82.8); PLATELET COUNT 97 K/MM3 (134-434); RDW 17.3 % (11.6-15.6); WHITE BLOOD COUNT 3.2 K/mm3 (4.0-10.0)
[2017-06-02 08:47] LABS: CALCIUM 6.9 mg/dL (8.5-10.1)
[2017-06-02] MEDS: LINEZOLID 600 MG PREMIX BAG 300 ML IVPB SCH ×2 (09:50→23:18)
[2017-06-02] MEDS: PANTOPRAZOLE SODIUM 40 MG VIAL IVPUSH SCH (09:52)
[2017-06-02] MEDS: NYSTATIN 100,000 UNIT/GM TOPICAL CREAM 15 GM TUBE TP SCH ×2 (09:54→23:17)
--- NOTE | 2017-06-02 10:07 | PN ---
Progress Note, Physician History of Present Illness: PULMONARY ALERT,NON-VERBAL,-RESP DISTRESS - Current Medication List Current Medications: Active Medications Atorvastatin Calcium (Lipitor -) 20 mg PO HS [facility] Last Admin: 06/01/17 21:04 Dose: 20 mg Diltiazem HCl (Cardizem -) 30 mg PEG TID [facility] Last Admin: 06/01/17 21:04 Dose: 30 mg Linezolid (Zyvox 600 Mg Premix Bag (Restricted To Id) -) 300 mls @ 300 mls/hr IVPB BID [facility]OC[facility]NE PRN Reason: Protocol Last Admin: 06/02/17 09:50 Dose: 300 mls/hr Propofol (Diprivan -) 100 mls @ 1.63 mls/hr IVPB TITR JOCELYNE; 5 MCG/KG/MIN PRN Reason: Protocol Last Admin: 06/01/17 17:57 Dose: Not Given Trimethoprim/Sulfamethoxazole (100 mg/ Dextrose) 256.25 mls @ 256.25 mls/hr IVPB Q8H-IV [facility] Last Admin: 06/02/17 09:50 Dose: 256.25 mls/hr Levothyroxine Sodium (Synthroid Injection -) 44 mcg IVPUSH ACBK [facility] Last Admin: 06/01/17 06:11 Dose: 44 mcg Nystatin (Mycostatin Cream -) 1 applic TP BID [facility] Last Admin: 06/02/17 09:54 Dose: 1 applic Pantoprazole Sodium (Protonix Iv) 40 mg IVPUSH BID [facility] Last Admin: 06/02/17 09:52 Dose: 40 mg - Objective Vital Signs: Vital Signs Temperature 97.8 F 06/02/17 08:00 Pulse Rate 98 H 06/02/17 08:00 Respiratory Rate 16 06/02/17 08:07 Blood Pressure 123/68 06/02/17 08:00 O2 Sat by Pulse Oximetry (%) 98 06/02/17 08:07 Constitutional: Yes: Well Nourished, Calm Eyes: Yes: WNL HENT: Yes: WNL Neck: Yes: WNL Cardiovascular: Yes: Regular Rate and Rhythm, S1, S2 Respiratory: Yes: Other (POOR INSPIRATORY EFFORT,-RALES,-RHONCHI) Gastrointestinal: Yes: Normal Bowel Sounds, Soft Extremities: Yes: WNL Edema: No Labs: CBC, BMP 06/02/17 07:20 06/02/17 07:20 INR, PTT INR 1.11 (0.82-1.09) 05/12/17 01:35 Problem List - Problems (1) CHF (congestive heart failure) Code(s): I50.9 - HEART FAILURE, UNSPECIFIED Qualifiers: Congestive heart failure type: unspecified congestive heart failure type Congestive heart failure chronicity: chronic Qualified Code(s): I50.9 - Heart failure, unspecified (2) HTN (hypertension) Code(s): I10 - ESSENTIAL (PRIMARY) HYPERTENSION (3) Altered mental status, unspecified Code(s): R41.82 - ALTERED MENTAL STATUS, UNSPECIFIED (4) Dementia Code(s): F03.90 - UNSPECIFIED DEMENTIA WITHOUT BEHAVIORAL DISTURBANCE (5) Aspiration pneumonia Code(s): J69.0 - PNEUMONITIS DUE TO INHALATION OF FOOD AND VOMIT (6) Anemia Code(s): D64.9 - ANEMIA, UNSPECIFIED Qualifiers: Anemia type: other cause Other causes of anemia: acute posthemorrhagic Qualified Code(s): D62 - Acute posthemorrhagic anemia (7) Acute on chronic systolic (congestive) heart failure Code(s): I50.23 - ACUTE ON CHRONIC SYSTOLIC (CONGESTIVE) HEART FAILURE (8) Acute respiratory failure Code(s): J96.00 - ACUTE RESPIRATORY FAILURE, UNSP W HYPOXIA OR HYPERCAPNIA (9) CVA (cerebral vascular accident) Code(s): I63.9 - CEREBRAL INFARCTION, UNSPECIFIED Assessment/Plan ASSESSMENT AND PLAN: s/p Acute Hypoxic Respiratory Failure Acute CVA Seizure from Above UTI Pneumonia +Troponins likely from [place] Ischemia LV Systolic Dysfunction Hyponatremia Dementia Anemia - continue antibiotics per ID - aspiration precautions - O2 to keep SpO2 >90% - monitor lytes,h+h - f/u chest x-rays DR BHAT
--- NOTE | 2017-06-02 10:31 | PN ---
Progress Note, Physician History of Present Illness: This is a 82 yo woman PMH: dementia, hypothyroid, HTN, active tobacco, CAD s/p sent, CHF presenting to ICU after FUR CUTTER for hypoxic respiratory failure, SVT (HR 180s) and shock. Briefly, patient initially presented for frequent falls and altered mental status with overall physical and cognitive decline over the last 6 months prior to admission. CT head: w/ central atrophy and mild microvascular ischemic gliosis. Labs significant for hypothyroid, leukopenia and pyuria, she was started on ceftriaxone. Neurology was consulted. Endocrine consulted. Mental status had some improvement while on the floor. Speech and swallow eval done c/ f aspiration. ABX were switch to zosyn given increased secretions and c/f pneumonia. Plans made for potential PEG placement. Patient continued to have waxing and waning mental status. Patient had notable right facial droop and NCHCT done w/o acute pathology. She completed a course of ABX. GI was consulted for c/f GIB. Heme also consulted given anemia and leukopenia and w/u sent: flow- -0.2% blasts, clonal B cells questionable nonspecific immunophenotype. On day of ICU admission patient had witnessed aspiration event. FUR CUTTER was called in PM for hypoxia and tachycardia. Patient transferred to ICU for hypoxic respiratory failure. Patient intubated. ABG 7.3/54/242 (ACVC: 20/400/100 +5). Patient given adenosine for SVT w/ underlying sinus rhythm. Patient continued to have RVR and was given lopressor 5mg x1 w/ HR improved to 120s. Family called but were unavailable. - History Source - Current Medication List Current Medications: Active Medications Atorvastatin Calcium (Lipitor -) 20 mg PO HS [facility] Last Admin: 06/01/17 21:04 Dose: 20 mg Diltiazem HCl (Cardizem -) 30 mg PEG TID [facility] Last Admin: 06/01/17 21:04 Dose: 30 mg Linezolid (Zyvox 600 Mg Premix Bag (Restricted To Id) -) 300 mls @ 300 mls/hr IVPB BID JOCELYNE PRN Reason: Protocol Last Admin: 06/02/17 09:50 Dose: 300 mls/hr Propofol (Diprivan -) 100 mls @ 1.63 mls/hr IVPB TITR JOCELYNE; 5 MCG/KG/MIN PRN Reason: Protocol Last Admin: 06/01/17 17:57 Dose: Not Given Trimethoprim/Sulfamethoxazole (100 mg/ Dextrose) 256.25 mls @ 256.25 mls/hr IVPB Q8H-IV [facility] Last Admin: 06/02/17 09:50 Dose: 256.25 mls/hr Levothyroxine Sodium (Synthroid Injection -) 44 mcg IVPUSH ACBK [facility] Last Admin: 06/01/17 06:11 Dose: 44 mcg Nystatin (Mycostatin Cream -) 1 applic TP BID [facility] Last Admin: 06/02/17 09:54 Dose: 1 applic Pantoprazole Sodium (Protonix Iv) 40 mg IVPUSH BID [facility] Last Admin: 06/02/17 09:52 Dose: 40 mg - Objective Vital Signs: Vital Signs Temperature 97.8 F 06/02/17 08:00 Pulse Rate 98 H 06/02/17 08:00 Respiratory Rate 16 06/02/17 08:07 Blood Pressure 123/68 06/02/17 08:00 O2 Sat by Pulse Oximetry (%) 98 06/02/17 08:07 Eyes: Yes: WNL, Conjunctiva Clear, EOM Intact HENT: Yes: WNL, Atraumatic, Normocephalic Neck: Yes: WNL, Supple, Trachea Midline Cardiovascular: Yes: WNL, Regular Rate and Rhythm Respiratory: Yes: WNL, Regular, CTA Bilaterally Gastrointestinal: Yes: WNL, Normal Bowel Sounds Genitourinary: Yes: WNL Musculoskeletal: Yes: WNL Extremities: Yes: WNL Edema: No Integumentary: Yes: WNL Neurological: Yes: WNL, Alert, Oriented ...Motor Strength: WNL Psychiatric: Yes: WNL Labs: CBC, BMP 06/02/17 07:20 06/02/17 07:20 INR, PTT INR 1.11 (0.82-1.09) 05/12/17 01:35 Problem List - Problems (1) CHF (congestive heart failure) Code(s): I50.9 - HEART FAILURE, UNSPECIFIED Qualifiers: Congestive heart failure type: unspecified congestive heart failure type Congestive heart failure chronicity: chronic Qualified Code(s): I50.9 - Heart failure, unspecified (2) Smoking addiction Code(s): F17.200 - NICOTINE DEPENDENCE, UNSPECIFIED, UNCOMPLICATED (3) Smoking Code(s): F17.200 - NICOTINE DEPENDENCE, UNSPECIFIED, UNCOMPLICATED (4) Aortic stenosis Code(s): I35.0 - NONRHEUMATIC AORTIC (VALVE) STENOSIS (5) Osteoporosis Code(s): M81.0 - AGE-RELATED OSTEOPOROSIS W/O CURRENT PATHOLOGICAL FRACTURE (6) Hypothyroidism Code(s): E03.9 - HYPOTHYROIDISM, UNSPECIFIED (7) HTN (hypertension) Code(s): I10 - ESSENTIAL (PRIMARY) HYPERTENSION (8) Macrocytosis Code(s): D75.89 - OTHER SPECIFIED DISEASES OF BLOOD AND BLOOD-FORMING ORGANS (9) Paroxysmal SVT (supraventricular tachycardia) Code(s): I47.1 - SUPRAVENTRICULAR TACHYCARDIA (10) Pancytopenia Code(s): D61.818 - OTHER PANCYTOPENIA (11) Altered mental status, unspecified Code(s): R41.82 - ALTERED MENTAL STATUS, UNSPECIFIED (12) UTI (urinary tract infection) Code(s): N39.0 - URINARY TRACT INFECTION, SITE NOT SPECIFIED (13) Dementia Code(s): F03.90 - UNSPECIFIED DEMENTIA WITHOUT BEHAVIORAL DISTURBANCE (14) Fever Code(s): R50.9 - FEVER, UNSPECIFIED (15) Aspiration pneumonia Code(s): J69.0 - PNEUMONITIS DUE TO INHALATION OF FOOD AND VOMIT (16) Anemia Code(s): D64.9 - ANEMIA, UNSPECIFIED Qualifiers: Anemia type: other cause Other causes of anemia: acute posthemorrhagic Qualified Code(s): D62 - Acute posthemorrhagic anemia (17) Acute respiratory failure with hypoxia and hypercapnia Code(s): J96.01 - ACUTE RESPIRATORY FAILURE WITH HYPOXIA; J96.02 - ACUTE RESPIRATORY FAILURE WITH HYPERCAPNIA (18) Shock Code(s): R57.9 - SHOCK, UNSPECIFIED Assessment/Plan 1) Acute respiratory failure with hypoxia and hypercapnia Assessment/Plan: reintubated; AC mode. ?ventilator depdendent; may require tracheostomy Code(s): J96.01 - ACUTE RESPIRATORY FAILURE WITH HYPOXIA J96.02 - ACUTE RESPIRATORY FAILURE WITH HYPERCAPNIA (2) Aspiration pneumonia Code(s): J69.0 - PNEUMONITIS DUE TO INHALATION OF FOOD AND VOMIT (3) Dementia Assessment/Plan: neuro w/u noted; OMS: cortical infarct; no acute CVA Code(s): F03.90 - UNSPECIFIED DEMENTIA WITHOUT BEHAVIORAL DISTURBANCE (4) Fever Assessment/Plan: pancytopenia. Code(s): R50.9 - FEVER, UNSPECIFIED (5) Shock Assessment/Plan: Off pressors. Mild systolic dysfunction. Continue fluids. On antibiotics per ID. Rising TNI: likely demand ischemia (respiratory failure; sepsis; systolic CHF; pancytopenia). Code(s): R57.9 - SHOCK, UNSPECIFIED (6) HTN (hypertension) Assessment/Plan: on diltiazem (caution with systolic LV dysfunction, anemia, periods of low BP). Code(s): I10 - ESSENTIAL (PRIMARY) HYPERTENSION (7) Hypothyroidism Assessment/Plan: On Synthroid. TSH low; free T4 mildly elevated. Code(s): E03.9 - HYPOTHYROIDISM, UNSPECIFIED (8) Osteoporosis Code(s): M81.0 - AGE-RELATED OSTEOPOROSIS W/O CURRENT PATHOLOGICAL FRACTURE (9) Smoking Code(s): F17.200 - NICOTINE DEPENDENCE, UNSPECIFIED, UNCOMPLICATED (10) Acute on chronic systolic (congestive) heart failure Assessment/Plan: BNP >11,000 ECHO: mildly reduced LVEF; mild MR; moderate TR; mild AR; trivial pericardial effusion. On diltiazem (caution, given reduced LVEF, low-NL BP); F/u BUN/Cr, electrolytes, Is and Os, weight. Na 132. Avoid excessive dehydration. Code(s): I50.23 - ACUTE ON CHRONIC SYSTOLIC (CONGESTIVE) HEART FAILURE cc time 36 min
--- NOTE | 2017-06-02 10:48 | PN ---
Progress Note, Physician Chief Complaint: Patient remains non-verbal but awake. Unable to obtain. - Current Medication List Current Medications: Active Medications Atorvastatin Calcium (Lipitor -) 20 mg PO HS [facility] Last Admin: 06/01/17 21:04 Dose: 20 mg Diltiazem HCl (Cardizem -) 30 mg PEG TID [facility] Last Admin: 06/01/17 21:04 Dose: 30 mg Linezolid (Zyvox 600 Mg Premix Bag (Restricted To Id) -) 300 mls @ 300 mls/hr IVPB BID JOCELYNE PRN Reason: Protocol Last Admin: 06/02/17 09:50 Dose: 300 mls/hr Propofol (Diprivan -) 100 mls @ 1.63 mls/hr IVPB TITR JOCELYNE; 5 MCG/KG/MIN PRN Reason: Protocol Last Admin: 06/01/17 17:57 Dose: Not Given Trimethoprim/Sulfamethoxazole (100 mg/ Dextrose) 256.25 mls @ 256.25 mls/hr IVPB Q8H-IV [facility] Last Admin: 06/02/17 09:50 Dose: 256.25 mls/hr Levothyroxine Sodium (Synthroid Injection -) 44 mcg IVPUSH ACBK [facility] Last Admin: 06/01/17 06:11 Dose: 44 mcg Nystatin (Mycostatin Cream -) 1 applic TP BID [facility] Last Admin: 06/02/17 09:54 Dose: 1 applic Pantoprazole Sodium (Protonix Iv) 40 mg IVPUSH BID [facility] Last Admin: 06/02/17 09:52 Dose: 40 mg - Objective Vital Signs: Vital Signs Temperature 36.6 C 06/02/17 08:00 Pulse Rate 98 H 06/02/17 08:00 Respiratory Rate 16 06/02/17 08:07 Blood Pressure 123/68 06/02/17 08:00 O2 Sat by Pulse Oximetry (%) 98 06/02/17 08:07 Constitutional: Yes: No Distress, Calm, Thin Cardiovascular: Yes: Regular Rate and Rhythm. No: Gallop, Murmur, Rub Respiratory: Yes: Regular, On Nasal O2, Rhonchi. No: CTA Bilaterally, Rales, Wheezes Gastrointestinal: Yes: Normal Bowel Sounds, Soft. No: Distention, Tenderness Extremities: Yes: WNL Edema: No Labs: CBC, BMP 06/02/17 07:20 06/02/17 07:20 INR, PTT INR 1.11 (0.82-1.09) 05/12/17 01:35 Problem List - Problems (1) CHF (congestive heart failure) Code(s): I50.9 - HEART FAILURE, UNSPECIFIED Qualifiers: Congestive heart failure type: unspecified congestive heart failure type Congestive heart failure chronicity: chronic Qualified Code(s): I50.9 - Heart failure, unspecified (2) Hypothyroidism Code(s): E03.9 - HYPOTHYROIDISM, UNSPECIFIED (3) HTN (hypertension) Code(s): I10 - ESSENTIAL (PRIMARY) HYPERTENSION (4) Pancytopenia Code(s): D61.818 - OTHER PANCYTOPENIA (5) UTI (urinary tract infection) Code(s): N39.0 - URINARY TRACT INFECTION, SITE NOT SPECIFIED (6) Dementia Code(s): F03.90 - UNSPECIFIED DEMENTIA WITHOUT BEHAVIORAL DISTURBANCE (7) Aspiration pneumonia Code(s): J69.0 - PNEUMONITIS DUE TO INHALATION OF FOOD AND VOMIT (8) Anemia Code(s): D64.9 - ANEMIA, UNSPECIFIED Qualifiers: Anemia type: other cause Other causes of anemia: acute posthemorrhagic Qualified Code(s): D62 - Acute posthemorrhagic anemia (9) Acute respiratory failure Code(s): J96.00 - ACUTE RESPIRATORY FAILURE, UNSP W HYPOXIA OR HYPERCAPNIA (10) Septic shock Code(s): A41.9 - SEPSIS, UNSPECIFIED ORGANISM; R65.21 - SEVERE SEPSIS WITH SEPTIC SHOCK Assessment/Plan (1) Acute respiratory failure -appreciate pulmonary assistance -now on nasal cannula -patient is full code and if goes into respiratory distress again son approves intubation and trach -continue oxygen (2) Elevated troponin -stress induced -cardiology following but no further treatment needed (3) Seizure -resolved -no need for seizure treatment -appreciate neurology assistance (4) CHF exacerbation -resolved (5) Pneumonia -previous cultures growing stenotrophomonas -ID following -continue IV bactrim per Dr Mcleod (6) UTI -continue linezolid per ID (7) Hyponatremia -stable (8) Hypothyroid -PEG tube now working -change to levothyroxine 100mcg daily, increase from 88mcg (9) Anemia -worsened today -recheck in am -seen by GI and felt low suspicion for bleeding -may need CT scan abdomen if continues to decrease Dispo -will need to be on IV antibiotics until 06/05 per ID
--- NOTE | 2017-06-02 11:56 | PN ---
Progress Note, Physician History of Present Illness: alert looks at you non verbal - Current Medication List Current Medications: Active Medications Atorvastatin Calcium (Lipitor -) 20 mg PO HS [facility] Last Admin: 06/01/17 21:04 Dose: 20 mg Diltiazem HCl (Cardizem -) 30 mg PEG TID [facility] Last Admin: 06/01/17 21:04 Dose: 30 mg Linezolid (Zyvox 600 Mg Premix Bag (Restricted To Id) -) 300 mls @ 300 mls/hr IVPB BID [facility] PRN Reason: Protocol Last Admin: 06/02/17 09:50 Dose: 300 mls/hr Propofol (Diprivan -) 100 mls @ 1.63 mls/hr IVPB TITR JOCELYNE; 5 MCG/KG/MIN PRN Reason: Protocol Last Admin: 06/01/17 17:57 Dose: Not Given Trimethoprim/Sulfamethoxazole (100 mg/ Dextrose) 256.25 mls @ 256.25 mls/hr IVPB Q8H-IV [facility] Last Admin: 06/02/17 09:50 Dose: 256.25 mls/hr Levothyroxine Sodium (Synthroid Injection -) 44 mcg IVPUSH ACBK [facility] Last Admin: 06/01/17 06:11 Dose: 44 mcg Nystatin (Mycostatin Cream -) 1 applic TP BID [facility] Last Admin: 06/02/17 09:54 Dose: 1 applic Pantoprazole Sodium (Protonix Iv) 40 mg IVPUSH BID [facility] Last Admin: 06/02/17 09:52 Dose: 40 mg - Objective Vital Signs: Vital Signs Temperature 97.8 F 06/02/17 08:00 Pulse Rate 98 H 06/02/17 08:00 Respiratory Rate 16 06/02/17 08:07 Blood Pressure 123/68 06/02/17 08:00 O2 Sat by Pulse Oximetry (%) 98 06/02/17 08:07 Constitutional: Yes: No Distress, Calm Cardiovascular: Yes: Regular Rate and Rhythm Respiratory: Yes: Regular, On Nasal O2, Other Gastrointestinal: Yes: Normal Bowel Sounds, Soft, Other (peg tube) Musculoskeletal: Yes: WNL Extremities: Yes: WNL Neurological: Yes: Alert Labs: CBC, BMP 06/02/17 07:20 06/02/17 07:20 INR, PTT INR 1.11 (0.82-1.09) 05/12/17 01:35 Assessment/Plan Problem List - Problems (1) UTI (urinary tract infection) Code(s): N39.0 - URINARY TRACT INFECTION, SITE NOT SPECIFIED (2) Dementia Code(s): F03.90 - UNSPECIFIED DEMENTIA WITHOUT BEHAVIORAL DISTURBANCE (3) Pancytopenia Code(s): D61.818 - OTHER PANCYTOPENIA (4) CHF (congestive heart failure) Code(s): I50.9 - HEART FAILURE, UNSPECIFIED Qualifiers: Congestive heart failure type: unspecified congestive heart failure type Congestive heart failure chronicity: chronic Qualified Code(s): I50.9 - Heart failure, unspecified (5) HTN (hypertension) Code(s): I10 - ESSENTIAL (PRIMARY) HYPERTENSION (6) Hypothyroidism Code(s): E03.9 - HYPOTHYROIDISM, UNSPECIFIED Aspiration pneumonia Code(s): J69.0 - PNEUMONITIS DUE TO INHALATION OF FOOD AND VOMIT lactic acidosis plan continue monitorin abx to continue till the 11th nutrition rest as per primary
--- NOTE | 2017-06-02 13:12 | EKG ---
Test Reason : Blood Pressure : / mmHG Vent. Rate : 078 BPM Atrial Rate : 078 BPM P-R Int : 112 ms QRS Dur : 088 ms QT Int : 404 ms P-R-T Axes : 061 044 244 degrees QTc Int : 460 ms NORMAL SINUS RHYTHM NONSPECIFIC T WAVE ABNORMALITY SEPTAL INFARCT (CITED ON OR BEFORE 26-MAY-2017) ABNORMAL ECG WHEN COMPARED WITH ECG OF 26-MAY-2017 16:53, T WAVE INVERSION NO LONGER EVIDENT IN ANTERIOR LEADS Confirmed by LESVIA GARCIA MD ([id number]) on 06/02/2017 1:12:25 PM Referred By: Prema HERRERA Confirmed By:LESVIA GARCIA MD
[2017-06-02] MEDS: dilTIAZem HCL 30 MG TABLET (FP) PEG SCH ×2 (13:50→23:17)
[2017-06-02] MEDS: LEVOTHYROXINE NA 100 MCG TABLET (FP) PEG SCH (17:00)
[2017-06-02] MEDS: ATORVASTATIN CA 20 MG TABLET (FP) PO SCH (23:17)
[2017-06-03] MEDS: WATER IVPB SCH ×3 (01:24→17:22)
[2017-06-03] MEDS: TRIMETHOPRIM IVPB SCH ×3 (01:24→17:22)
[2017-06-03] MEDS: DEXTROSE 5% IVPB SCH ×3 (01:24→17:22)
[2017-06-03] MEDS: SULFAMETHOXAZOLE IVPB SCH ×3 (01:24→17:22)
[2017-06-03] MEDS: dilTIAZem HCL 30 MG TABLET (FP) PEG SCH ×4 (06:32→22:22)
[2017-06-03] MEDS: LEVOTHYROXINE NA 100 MCG TABLET (FP) PEG SCH (06:32)
[2017-06-03 06:40] LABS: BASOPHIL 0.3 % (0-2.0); EOSINOPHIL 3.7 % (0-4.5); MCH 34.7 pg (25.7-33.7); MCHC 35.8 g/dl (32.0-36.0); MEAN CELL VOLUME 97.2 fl (80-96); MEAN PLT VOLUME 6.7 fl (7.5-11.1); NEUTROPHILS 66.2 % (42.8-82.8); PLATELET COUNT 91 K/MM3 (134-434); RDW 17.4 % (11.6-15.6); WHITE BLOOD COUNT 2.8 K/mm3 (4.0-10.0)
[2017-06-03 07:17] LABS: ANION GAP 10 (8-16); CALCIUM 7.2 mg/dL (8.5-10.1); CO2 26 mmol/L (21-32); CREATININE 0.6 mg/dL (0.55-1.02); GLUCOSE,RANDOM 102 mg/dL (74-106); MAGNESIUM 1.6 mg/dL (1.8-2.4); PHOSPHOROUS 2.4 mg/dL (2.5-4.9)
[2017-06-03] MEDS ORDERED: PT OWN MED DRAWER 7, Y5N ONE (10:25)
[2017-06-03] MEDS: LINEZOLID 600 MG PREMIX BAG 300 ML IVPB SCH ×2 (10:32→22:22)
[2017-06-03] MEDS: PANTOPRAZOLE SOD 40 MG SUSPENSION PACKET PEG SCH (10:35)
[2017-06-03] MEDS: NYSTATIN 100,000 UNIT/GM TOPICAL CREAM 15 GM TUBE TP SCH ×2 (10:35→22:22)
--- NOTE | 2017-06-03 15:00 | PN ---
Progress Note (short form) - Note Progress Note: PULMONARY Pt nonverbal. No fevers recorded. Last Vital Signs Temp Pulse Resp BP Pulse Ox 96.5 F L 100 H 22 127/64 100 06/03/17 10:00 06/03/17 12:05 06/03/17 10:00 06/03/17 10:00 06/03/17 12:05 Intake & Output 05/31/17 06/01/17 06/02/17 06/03/17 23:59 23:59 23:59 23:59 Intake Total 2790 1010 1310 550 Output Total 2400 1300 2100 700 Balance 390 -290 -790 -150 Weight 140 lb 12.8 oz 145 lb 1.027 oz 0 oz 144 lb 5 oz Gen: breathing nonlabored Heart: tachycardic, regular Lung: decreased breath sounds at the bases Abd: soft, nontender Ext: + edema CBC, BMP 06/03/17 06:10 06/03/17 06:10 Active Medications Atorvastatin Calcium (Lipitor -) 20 mg PO HS [facility] Last Admin: 06/02/17 23:17 Dose: 20 mg Diltiazem HCl (Cardizem -) 30 mg PEG TID [facility] Last Admin: 06/03/17 06:32 Dose: 30 mg Linezolid (Zyvox 600 Mg Premix Bag (Restricted To Id) -) 300 mls @ 300 mls/hr IVPB BID [facility] PRN Reason: Protocol Last Admin: 06/03/17 10:32 Dose: 300 mls/hr Trimethoprim/Sulfamethoxazole (100 mg/ Dextrose) 256.25 mls @ 256.25 mls/hr IVPB Q8H-IV [facility] Last Admin: 06/03/17 13:17 Dose: 256.25 mls/hr Levothyroxine Sodium (Synthroid -) 100 mcg PEG DAILY@0700 [facility] Last Admin: 06/03/17 06:32 Dose: 100 mcg Nystatin (Mycostatin Cream -) 1 applic TP BID [facility] Last Admin: 06/03/17 10:35 Dose: 1 applic Pantoprazole Sodium (Protonix Packets For Oral Suspension -) 40 mg PEG DAILY [facility] Last Admin: 06/03/17 10:35 Dose: 40 mg A/P s/p Acute Hypoxic Respiratory Failure Acute CVA Seizure from Above UTI Pneumonia +Troponins likely from [place] Ischemia LV Systolic Dysfunction Hyponatremia Dementia - continue antibiotics per ID - enteral feeds - aspiration precautions - O2 to keep SpO2 >90% - DVT prophylaxis
[2017-06-03] MEDS ORDERED: MAGNESIUM OXIDE 400 MG TABLET (FP) PO ONE (16:19)
[2017-06-03] MEDS ORDERED: NAPH,MB-DB/K PH,MBDB POWDER PACKET PO ONE (16:19)
--- NOTE | 2017-06-03 16:20 | PN ---
Progress Note (short form) - Note Progress Note: resting comfortable Current Medications Generic Name Dose Route Start Last Admin Trade Name Jacquelyn PRN Reason Stop Dose Admin Atorvastatin Calcium 20 mg 05/31/17 22:00 06/02/17 23:17 Lipitor - PO 20 mg HS [facility]OC[facility]NE Administration Diltiazem HCl 30 mg 05/31/17 22:00 06/03/17 06:32 Cardizem - PEG 30 mg TID [facility]OCELYNE Administration Linezolid 300 mls @ 300 mls/hr 05/31/17 22:00 06/03/17 10:32 Zyvox 600 Mg Premix Bag (Restricted To Id) - IVPB 300 mls/hr BID [facility]OCELYNE Administration Protocol Trimethoprim/Sulfamethoxazole 256.25 mls @ 256.25 mls/hr 05/31/17 18:00 06/03 13:17 100 mg/ Dextrose IVPB 256.25 mls/hr Q8H-IV [facility] Administration Levothyroxine Sodium 100 mcg 06/02/17 14:15 06/03/17 06:32 Synthroid - PEG 100 mcg DAILY@0700 JOCELYNE Administration Nystatin 1 applic 05/31/17 22:00 06/03/17 10:35 Mycostatin Cream - TP 1 applic BID [facility]NE Administration Pantoprazole Sodium 40 mg 06/03/17 10:00 06/03/17 10:35 Protonix Packets For Oral Suspension - PEG 40 mg DAILY [facility]OCELYNE Administration Last Vital Signs Temp Pulse Resp BP Pulse Ox 97 F L 101 H 22 135/55 100 06/03/17 15:25 06/03/17 15:25 06/03/17 15:25 06/03/17 15:25 06/03/17 12:05 General resting comfortable, alert, nonverbal CV S1 S2 tachy Lungs decreased breath sounds anteriorly. no wheezing Abdomen Soft NT/ND Extremities n pedal edema CBCD WBC 2.8 K/mm3 (4.0-10.0) L 06/03/17 06:10 RBC 2.37 M/mm3 (3.60-5.2) L 06/03/17 06:10 Hgb 8.2 GM/dL (10.7-15.3) L 06/03/17 06:10 Hct 23.1 % (32.4-45.2) L 06/03/17 06:10 MCV 97.2 fl (80-96) H 06/03/17 06:10 MCHC 35.8 g/dl (32.0-36.0) 06/03/17 06:10 RDW 17.4 % (11.6-15.6) H 06/03/17 06:10 Plt Count 91 K/MM3 (134-434) L 06/03/17 06:10 MPV 6.7 fl (7.5-11.1) L 06/03/17 06:10 CMP Sodium 131 mmol/L (136-145) L 06/03/17 06:10 Potassium 4.0 mmol/L (3.5-5.1) 06/03/17 06:10 Chloride 95 mmol/L (98-107) L 06/03/17 06:10 Carbon Dioxide 26 mmol/L (21-32) 06/03/17 06:10 Anion Gap 10 (8-16) 06/03/17 06:10 BUN 13 mg/dL (7-18) 06/03/17 06:10 Creatinine 0.6 mg/dL (0.55-1.02) 06/03/17 06:10 Creat Clearance w eGFR > 60 (>60) 05/28/17 05:50 Calcium 7.2 mg/dL (8.5-10.1) L 06/03/17 06:10 Total Bilirubin 0.8 mg/dL (0.2-1.0) D 05/28/17 05:50 AST 28 U/L (15-37) 05/28/17 05:50 ALT 50 U/L (12-78) 05/28/17 05:50 Alkaline Phosphatase 186 U/L (45-117) H 05/28/17 05:50 Total Protein 4.3 g/dl (6.4-8.2) L 05/28/17 05:50 Albumin 1.8 g/dl (3.4-5.0) L 05/28/17 05:50 A/P 82yo F with PMH CHF, hypothyroid, CAD s/p stent, presented to the ER with frequent falls and AMS 1. Acute Hypoxic Respiratory failure- due to sepsis and PNA. now extubated. saturating 100% on 2L NC. 2. Seizure- no reported seizure like activity 3. Sepsis due to PNA and VRE UTI- clinically improved. afebrile. Leukcytosis resolved. on Linezolid and Bactrim IV. will complete course on 06/05. cont contact precautions. ID on board 4. Tropinemia- likely demand ischemia due to sepsis. now resolved 5. Anemia- Hgb stable. will cont to monitor. if continues to trend down will need to consider CT abdomen/pelvis. will hold for now as Hgb stable. txn for Hgb <7 6. Hypothryoid- increased to 100mcg on this admission 7. Hypomagnesemia- Mg 800mg 8. Hypophosphatemia- neutraphos 9. pseudohypocalcemia- Corrected ca 9 10. DVT ppx- SCD. hold pharamcologic anticoagulation Visit type - Emergency Visit Emergency Visit: Yes ED Registration Date: 04/01/17 Care time: The patient presented to the Emergency Department on the above date and was hospitalized for further evaluation of their emergent condition. - New Patient This patient is new to me today: Yes Date on this admission: 06/03/17 - Critical Care Critical Care patient: No - Discharge Referral Referred to [facility] No
--- NOTE | 2017-06-03 17:40 | PN ---
Progress Note, Physician History of Present Illness: stable no new issues awake and alert - Current Medication List Current Medications: Active Medications Atorvastatin Calcium (Lipitor -) 20 mg PO HS [facility] Last Admin: 06/02/17 23:17 Dose: 20 mg Diltiazem HCl (Cardizem -) 30 mg PEG TID [facility] Last Admin: 06/03/17 17:21 Dose: 30 mg Linezolid (Zyvox 600 Mg Premix Bag (Restricted To Id) -) 300 mls @ 300 mls/hr IVPB BID [facility] PRN Reason: Protocol Last Admin: 06/03/17 10:32 Dose: 300 mls/hr Trimethoprim/Sulfamethoxazole (100 mg/ Dextrose) 256.25 mls @ 256.25 mls/hr IVPB Q8H-IV [facility] Last Admin: 06/03/17 17:22 Dose: 256.25 mls/hr Levothyroxine Sodium (Synthroid -) 100 mcg PEG DAILY@0700 [facility] Last Admin: 06/03/17 06:32 Dose: 100 mcg Nystatin (Mycostatin Cream -) 1 applic TP BID [facility] Last Admin: 06/03/17 10:35 Dose: 1 applic Pantoprazole Sodium (Protonix Packets For Oral Suspension -) 40 mg PEG DAILY [facility] Last Admin: 06/03/17 10:35 Dose: 40 mg - Objective Vital Signs: Vital Signs Temperature 97 F L 06/03/17 15:25 Pulse Rate 101 H 06/03/17 15:25 Respiratory Rate 22 06/03/17 15:25 Blood Pressure 135/55 06/03/17 15:25 O2 Sat by Pulse Oximetry (%) 100 06/03/17 12:05 Constitutional: Yes: No Distress, Calm Cardiovascular: Yes: Regular Rate and Rhythm Respiratory: Yes: Regular, CTA Bilaterally Gastrointestinal: Yes: Normal Bowel Sounds, Soft Musculoskeletal: Yes: WNL Extremities: Yes: Other Edema: LLE: Trace, RLE: Trace Neurological: Yes: Alert Psychiatric: Yes: Alert Labs: CBC, BMP 06/03/17 06:10 06/03/17 06:10 INR, PTT INR 1.11 (0.82-1.09) 05/12/17 01:35 Assessment/Plan Problem List - Problems (1) UTI (urinary tract infection) Code(s): N39.0 - URINARY TRACT INFECTION, SITE NOT SPECIFIED (2) Dementia Code(s): F03.90 - UNSPECIFIED DEMENTIA WITHOUT BEHAVIORAL DISTURBANCE (3) Pancytopenia Code(s): D61.818 - OTHER PANCYTOPENIA (4) CHF (congestive heart failure) Code(s): I50.9 - HEART FAILURE, UNSPECIFIED Qualifiers: Congestive heart failure type: unspecified congestive heart failure type Congestive heart failure chronicity: chronic Qualified Code(s): I50.9 - Heart failure, unspecified (5) HTN (hypertension) Code(s): I10 - ESSENTIAL (PRIMARY) HYPERTENSION (6) Hypothyroidism Code(s): E03.9 - HYPOTHYROIDISM, UNSPECIFIED Aspiration pneumonia Code(s): J69.0 - PNEUMONITIS DUE TO INHALATION OF FOOD AND VOMIT lactic acidosis plan continue monitoring abx to continue till the 11th nutrition rest as per primary patient stable
[2017-06-03] MEDS: ATORVASTATIN CA 20 MG TABLET (FP) PO SCH (22:22)
[2017-06-04] MEDS: SULFAMETHOXAZOLE IVPB SCH ×3 (01:34→17:44)
[2017-06-04] MEDS: WATER IVPB SCH ×3 (01:34→17:44)
[2017-06-04] MEDS: TRIMETHOPRIM IVPB SCH ×3 (01:34→17:44)
[2017-06-04] MEDS: DEXTROSE 5% IVPB SCH ×3 (01:34→17:44)
[2017-06-04] MEDS: dilTIAZem HCL 30 MG TABLET (FP) PEG SCH ×3 (06:14→23:33)
[2017-06-04] MEDS: LEVOTHYROXINE NA 100 MCG TABLET (FP) PEG SCH (06:14)
--- NOTE | 2017-06-04 06:27 | PN ---
Progress Note, Physician Chief Complaint: Pt without discernable change (eyes open, shift to viewer; little other movement ). 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 Patient is poor historian so her son at bedside was complementing the interview. According to him she has fallen 5 times in the last 3-4 months despite her use of a walker. She hit her head two weeks prior during one of the falls but did not seek attention. She did not lose consciousness during that fall. She describes the falls as "my legs giving out" which is corroborated by her son who witnessed one of the events. The son claims that she also has had difficulty keep track of time and with short term memory. Her memory issues are worsened at night. She lives at home alone and has had trouble with her ADLs. She is not on blood thinners. She has also had decreased food intake over the past few months although she has only lost a few pounds. She was seen by her PCP Dr. Mitchell earlier today and then sent to the ED for admission for altered mental status. Denies fevers, chills, nausea, vomiting, diarrhea, constipation, urinary symptoms, visual changes, headaches, presyncopal sensation, or palpitations. Her PCP is Dr. Mitchell. - Current Medication List Current Medications: Active Medications Atorvastatin Calcium (Lipitor -) 20 mg PO HS [facility] Last Admin: 06/03/17 22:22 Dose: 20 mg Diltiazem HCl (Cardizem -) 30 mg PEG TID [facility] Last Admin: 06/04/17 06:14 Dose: 30 mg Linezolid (Zyvox 600 Mg Premix Bag (Restricted To Id) -) 300 mls @ 300 mls/hr IVPB BID [facility] PRN Reason: Protocol Last Admin: 06/03/17 22:22 Dose: 300 mls/hr Trimethoprim/Sulfamethoxazole (100 mg/ Dextrose) 256.25 mls @ 256.25 mls/hr IVPB Q8H-IV [facility] Last Admin: 06/04/17 01:34 Dose: 256.25 mls/hr Levothyroxine Sodium (Synthroid -) 100 mcg PEG DAILY@0700 [facility] Last Admin: 06/04/17 06:14 Dose: 100 mcg Nystatin (Mycostatin Cream -) 1 applic TP BID [facility] Last Admin: 06/03/17 22:22 Dose: 1 applic Pantoprazole Sodium (Protonix Packets For Oral Suspension -) 40 mg PEG DAILY [facility] Last Admin: 06/03/17 10:35 Dose: 40 mg - Objective Vital Signs: Vital Signs Temperature 92.9 F L 06/04/17 02:00 Pulse Rate 93 H 06/04/17 02:00 Respiratory Rate 20 06/04/17 02:00 Blood Pressure 139/74 06/04/17 02:00 O2 Sat by Pulse Oximetry (%) 98 06/03/17 22:00 Constitutional: Yes: Thin Eyes: Yes: Other HENT: Yes: Atraumatic Neck: Yes: Decreased ROM Cardiovascular: Yes: Regular Rate and Rhythm Respiratory: Yes: Regular Gastrointestinal: Yes: Soft, Other (PEG tube) Genitourinary: No: Anuria Extremities: Yes: Cool Edema: No Peripheral Pulses WNL: No Peripheral Pulses: Left Doralis Pedis: 1+, Right Dorsalis Pedis: 1+ Integumentary: Yes: WNL Neurological: Yes: Unresponsive, Weakness Psychiatric: Yes: Other (hx dementia) Labs: CBC, BMP 06/03/17 06:10 06/03/17 06:10 INR, PTT INR 1.11 (0.82-1.09) 05/12/17 01:35 Abnormal Lab Results 06/03/17 06/03/17 06:10 06:10 WBC 2.8 L RBC 2.37 L Hgb 8.2 L Hct 23.1 L MCV 97.2 H MCH 34.7 H RDW 17.4 H Plt Count 91 L MPV 6.7 L Sodium 131 L Chloride 95 L Calcium 7.2 L Phosphorus 2.4 L Magnesium 1.6 L Problem List - Problems (1) Smoking Code(s): F17.200 - NICOTINE DEPENDENCE, UNSPECIFIED, UNCOMPLICATED (2) Osteoporosis Code(s): M81.0 - AGE-RELATED OSTEOPOROSIS W/O CURRENT PATHOLOGICAL FRACTURE (3) Hypothyroidism Assessment/Plan: On Synthroid. TSH low; free T4 mildly elevated. Code(s): E03.9 - HYPOTHYROIDISM, UNSPECIFIED (4) HTN (hypertension) Assessment/Plan: on diltiazem (caution with systolic LV dysfunction, anemia, periods of low BP). Code(s): I10 - ESSENTIAL (PRIMARY) HYPERTENSION (5) Dementia Assessment/Plan: neuro w/u noted; OMS: cortical infarct; no acute CVA Code(s): F03.90 - UNSPECIFIED DEMENTIA WITHOUT BEHAVIORAL DISTURBANCE (6) Fever Assessment/Plan: pancytopenia. Code(s): R50.9 - FEVER, UNSPECIFIED (7) Aspiration pneumonia Code(s): J69.0 - PNEUMONITIS DUE TO INHALATION OF FOOD AND VOMIT (8) Acute respiratory failure with hypoxia and hypercapnia Assessment/Plan: f/u with pulmonary Code(s): J96.01 - ACUTE RESPIRATORY FAILURE WITH HYPOXIA; J96.02 - ACUTE RESPIRATORY FAILURE WITH HYPERCAPNIA (9) Acute on chronic systolic (congestive) heart failure Assessment/Plan: BNP >11,000 ECHO: mildly reduced LVEF; mild MR; moderate TR; mild AR; trivial pericardial effusion. On diltiazem (caution, given reduced LVEF, low-NL BP); F/u BUN/Cr, electrolytes, Is and Os, weight. Na 131. Avoid excessive dehydration. Code(s): I50.23 - ACUTE ON CHRONIC SYSTOLIC (CONGESTIVE) HEART FAILURE (10) Hypomagnesemia Assessment/Plan: 1.6 today; replete, and f/u level. Na remains low. Code(s): E83.42 - HYPOMAGNESEMIA (11) Sepsis Assessment/Plan: on antibiotics, per ID, until 06/05/17. Code(s): A41.9 - SEPSIS, UNSPECIFIED ORGANISM
[2017-06-04 06:59] LABS: BASOPHIL 0.6 % (0-2.0); EOSINOPHIL 3.9 % (0-4.5); MCH 34.8 pg (25.7-33.7); MCHC 35.5 g/dl (32.0-36.0); MEAN CELL VOLUME 98.2 fl (80-96); MEAN PLT VOLUME 6.6 fl (7.5-11.1); NEUTROPHILS 66.8 % (42.8-82.8); PLATELET COUNT 78 K/MM3 (134-434); RDW 17.8 % (11.6-15.6); WHITE BLOOD COUNT 2.9 K/mm3 (4.0-10.0)
[2017-06-04 08:00] LABS: ANION GAP 8 (8-16); CALCIUM 7.2 mg/dL (8.5-10.1); CO2 27 mmol/L (21-32); GLUCOSE,RANDOM 80 mg/dL (74-106); MAGNESIUM 1.7 mg/dL (1.8-2.4)
[2017-06-04 08:06] LABS: CREATININE 0.6 mg/dL (0.55-1.02); PHOSPHOROUS 2.5 mg/dL (2.5-4.9)
[2017-06-04] MEDS ORDERED: PT OWN MED DRAWER 7, Y5N ONE (08:49)
[2017-06-04] MEDS: PANTOPRAZOLE SOD 40 MG SUSPENSION PACKET PEG SCH (11:04)
[2017-06-04] MEDS: NYSTATIN 100,000 UNIT/GM TOPICAL CREAM 15 GM TUBE TP SCH ×2 (11:04→23:33)
[2017-06-04] MEDS: LINEZOLID 600 MG PREMIX BAG 300 ML IVPB SCH ×2 (11:04→23:33)
--- NOTE | 2017-06-04 15:04 | PN ---
Progress Note, Physician History of Present Illness: This is a 82 yo woman PMH: dementia, hypothyroid, HTN, active tobacco, CAD s/p sent, CHF presenting to ICU after ONCOLOGY SPECIALIST for hypoxic respiratory failure, SVT (HR 180s) and shock. Briefly, patient initially presented for frequent falls and altered mental status with overall physical and cognitive decline over the last 6 months prior to admission. CT head: w/ central atrophy and mild microvascular ischemic gliosis. Labs significant for hypothyroid, leukopenia and pyuria, she was started on ceftriaxone. Neurology was consulted. Endocrine consulted. Mental status had some improvement while on the floor. Speech and swallow eval done c/ f aspiration. ABX were switch to zosyn given increased secretions and c/f pneumonia. Plans made for potential PEG placement. Patient continued to have waxing and waning mental status. Patient had notable right facial droop and NCHCT done w/o acute pathology. She completed a course of ABX. GI was consulted for c/f GIB. Heme also consulted given anemia and leukopenia and w/u sent: flow- -0.2% blasts, clonal B cells questionable nonspecific immunophenotype. On day of ICU admission patient had witnessed aspiration event. ONCOLOGY SPECIALIST was called in PM for hypoxia and tachycardia. Patient transferred to ICU for hypoxic respiratory failure. Patient intubated. ABG 7.3/54/242 (ACVC: 20/400/100 +5). Patient given adenosine for SVT w/ underlying sinus rhythm. Patient continued to have RVR and was given lopressor 5mg x1 w/ HR improved to 120s. Family called but were unavailable. - History Source - Current Medication List Current Medications: Active Medications Atorvastatin Calcium (Lipitor -) 20 mg PO HS [facility] Last Admin: 06/03/17 22:22 Dose: 20 mg Diltiazem HCl (Cardizem -) 30 mg PEG TID [facility] Last Admin: 06/04/17 14:41 Dose: 30 mg Linezolid (Zyvox 600 Mg Premix Bag (Restricted To Id) -) 300 mls @ 300 mls/hr IVPB BID [facility] PRN Reason: Protocol Last Admin: 06/04/17 11:04 Dose: 300 mls/hr Trimethoprim/Sulfamethoxazole (100 mg/ Dextrose) 256.25 mls @ 256.25 mls/hr IVPB Q8H-IV [facility] Last Admin: 06/04/17 11:05 Dose: 256.25 mls/hr Levothyroxine Sodium (Synthroid -) 100 mcg PEG DAILY@0700 [facility] Last Admin: 06/04/17 06:14 Dose: 100 mcg Nystatin (Mycostatin Cream -) 1 applic TP BID [facility] Last Admin: 06/04/17 11:04 Dose: 1 applic Pantoprazole Sodium (Protonix Packets For Oral Suspension -) 40 mg PEG DAILY [facility] Last Admin: 06/04/17 11:04 Dose: 40 mg - Objective Vital Signs: Vital Signs Temperature 97.2 F L 06/04/17 10:00 Pulse Rate 86 06/04/17 10:00 Respiratory Rate 20 06/04/17 10:00 Blood Pressure 128/68 06/04/17 10:00 O2 Sat by Pulse Oximetry (%) 96 06/04/17 10:00 Eyes: Yes: WNL, Conjunctiva Clear, EOM Intact HENT: Yes: WNL, Atraumatic, Normocephalic Neck: Yes: WNL, Supple, Trachea Midline Cardiovascular: Yes: WNL, Regular Rate and Rhythm Respiratory: Yes: WNL, Regular, CTA Bilaterally Gastrointestinal: Yes: WNL, Normal Bowel Sounds Genitourinary: Yes: WNL Musculoskeletal: Yes: WNL Extremities: Yes: WNL Edema: No Integumentary: Yes: WNL Neurological: Yes: WNL, Alert, Oriented ...Motor Strength: WNL Psychiatric: Yes: WNL Labs: CBC, BMP 06/04/17 06:00 06/04/17 06:00 INR, PTT INR 1.11 (0.82-1.09) 05/12/17 01:35 Problem List - Problems (1) CHF (congestive heart failure) Code(s): I50.9 - HEART FAILURE, UNSPECIFIED Qualifiers: Congestive heart failure type: unspecified congestive heart failure type Congestive heart failure chronicity: chronic Qualified Code(s): I50.9 - Heart failure, unspecified (2) Smoking addiction Code(s): F17.200 - NICOTINE DEPENDENCE, UNSPECIFIED, UNCOMPLICATED (3) Smoking Code(s): F17.200 - NICOTINE DEPENDENCE, UNSPECIFIED, UNCOMPLICATED (4) Aortic stenosis Code(s): I35.0 - NONRHEUMATIC AORTIC (VALVE) STENOSIS (5) Osteoporosis Code(s): M81.0 - AGE-RELATED OSTEOPOROSIS W/O CURRENT PATHOLOGICAL FRACTURE (6) Hypothyroidism Code(s): E03.9 - HYPOTHYROIDISM, UNSPECIFIED (7) HTN (hypertension) Code(s): I10 - ESSENTIAL (PRIMARY) HYPERTENSION (8) Macrocytosis Code(s): D75.89 - OTHER SPECIFIED DISEASES OF BLOOD AND BLOOD-FORMING ORGANS (9) Paroxysmal SVT (supraventricular tachycardia) Code(s): I47.1 - SUPRAVENTRICULAR TACHYCARDIA (10) Pancytopenia Code(s): D61.818 - OTHER PANCYTOPENIA (11) Altered mental status, unspecified Code(s): R41.82 - ALTERED MENTAL STATUS, UNSPECIFIED (12) UTI (urinary tract infection) Code(s): N39.0 - URINARY TRACT INFECTION, SITE NOT SPECIFIED (13) Dementia Code(s): F03.90 - UNSPECIFIED DEMENTIA WITHOUT BEHAVIORAL DISTURBANCE (14) Fever Code(s): R50.9 - FEVER, UNSPECIFIED (15) Aspiration pneumonia Code(s): J69.0 - PNEUMONITIS DUE TO INHALATION OF FOOD AND VOMIT (16) Anemia Code(s): D64.9 - ANEMIA, UNSPECIFIED Qualifiers: Anemia type: other cause Other causes of anemia: acute posthemorrhagic Qualified Code(s): D62 - Acute posthemorrhagic anemia (17) Acute respiratory failure with hypoxia and hypercapnia Code(s): J96.01 - ACUTE RESPIRATORY FAILURE WITH HYPOXIA; J96.02 - ACUTE RESPIRATORY FAILURE WITH HYPERCAPNIA (18) Shock Code(s): R57.9 - SHOCK, UNSPECIFIED Assessment/Plan (1) Smoking Code(s): F17.200 - NICOTINE DEPENDENCE, UNSPECIFIED, UNCOMPLICATED (2) Osteoporosis Code(s): M81.0 - AGE-RELATED OSTEOPOROSIS W/O CURRENT PATHOLOGICAL FRACTURE (3) Hypothyroidism Assessment/Plan: On Synthroid. TSH low; free T4 mildly elevated. Code(s): E03.9 - HYPOTHYROIDISM, UNSPECIFIED (4) HTN (hypertension) Assessment/Plan: on diltiazem (caution with systolic LV dysfunction, anemia, periods of low BP). Code(s): I10 - ESSENTIAL (PRIMARY) HYPERTENSION (5) Dementia Assessment/Plan: neuro w/u noted; OMS: cortical infarct; no acute CVA Code(s): F03.90 - UNSPECIFIED DEMENTIA WITHOUT BEHAVIORAL DISTURBANCE (6) Fever Assessment/Plan: pancytopenia. Code(s): R50.9 - FEVER, UNSPECIFIED (7) Aspiration pneumonia Code(s): J69.0 - PNEUMONITIS DUE TO INHALATION OF FOOD AND VOMIT (8) Acute respiratory failure with hypoxia and hypercapnia Assessment/Plan: f/u with pulmonary
--- NOTE | 2017-06-04 16:09 | PN ---
Progress Note, Physician History of Present Illness: stable no new issues awake and alert - Current Medication List Current Medications: Active Medications Atorvastatin Calcium (Lipitor -) 20 mg PO HS [facility] Last Admin: 06/03/17 22:22 Dose: 20 mg Diltiazem HCl (Cardizem -) 30 mg PEG TID [facility] Last Admin: 06/04/17 14:41 Dose: 30 mg Linezolid (Zyvox 600 Mg Premix Bag (Restricted To Id) -) 300 mls @ 300 mls/hr IVPB BID [facility] PRN Reason: Protocol Last Admin: 06/04/17 11:04 Dose: 300 mls/hr Trimethoprim/Sulfamethoxazole (100 mg/ Dextrose) 256.25 mls @ 256.25 mls/hr IVPB Q8H-IV [facility] Last Admin: 06/04/17 11:05 Dose: 256.25 mls/hr Levothyroxine Sodium (Synthroid -) 100 mcg PEG DAILY@0700 [facility] Last Admin: 06/04/17 06:14 Dose: 100 mcg Nystatin (Mycostatin Cream -) 1 applic TP BID [facility] Last Admin: 06/04/17 11:04 Dose: 1 applic Pantoprazole Sodium (Protonix Packets For Oral Suspension -) 40 mg PEG DAILY [facility] Last Admin: 06/04/17 11:04 Dose: 40 mg - Objective Vital Signs: Vital Signs Temperature 98.2 F 06/04/17 15:59 Pulse Rate 103 H 06/04/17 15:59 Respiratory Rate 20 06/04/17 15:59 Blood Pressure 151/79 06/04/17 15:59 O2 Sat by Pulse Oximetry (%) 96 06/04/17 10:00 Constitutional: Yes: No Distress, Calm Cardiovascular: Yes: Regular Rate and Rhythm Respiratory: Yes: Regular, On Nasal O2 Gastrointestinal: Yes: Normal Bowel Sounds, Soft Musculoskeletal: Yes: WNL Extremities: Yes: WNL Edema: LLE: Trace, RLE: Trace Neurological: Yes: Alert, Other Psychiatric: Yes: Other Labs: CBC, BMP 06/04/17 06:00 06/04/17 06:00 INR, PTT INR 1.11 (0.82-1.09) 05/12/17 01:35 Assessment/Plan Problem List - Problems (1) UTI (urinary tract infection) Code(s): N39.0 - URINARY TRACT INFECTION, SITE NOT SPECIFIED (2) Dementia Code(s): F03.90 - UNSPECIFIED DEMENTIA WITHOUT BEHAVIORAL DISTURBANCE (3) Pancytopenia Code(s): D61.818 - OTHER PANCYTOPENIA (4) CHF (congestive heart failure) Code(s): I50.9 - HEART FAILURE, UNSPECIFIED Qualifiers: Congestive heart failure type: unspecified congestive heart failure type Congestive heart failure chronicity: chronic Qualified Code(s): I50.9 - Heart failure, unspecified (5) HTN (hypertension) Code(s): I10 - ESSENTIAL (PRIMARY) HYPERTENSION (6) Hypothyroidism Code(s): E03.9 - HYPOTHYROIDISM, UNSPECIFIED Aspiration pneumonia Code(s): J69.0 - PNEUMONITIS DUE TO INHALATION OF FOOD AND VOMIT lactic acidosis plan continue monitoring abx to continue till the 11th nutrition rest as per primary patient stable
--- NOTE | 2017-06-04 16:15 | PN ---
Physical Exam: SUBJECTIVE: Patient seen and examined. She is lethargic, opens eyes, appears comfortable in bed OBJECTIVE: Vital Signs Period Temp Pulse Resp BP Sys/Damon Pulse Ox Last 24 Hr 92.9 F-98.8 F 86-103 20-22 118-151/68-79 96-98 PE Neuro: alert, arouses, cn 2-12intact, non verbal HEENT: [place], Pulm: bilateral rhonchi +nc mild tachypnea CV: s1 s2 rrr Abd: s nt nd +bs Ext: warm, + 2 le edema Laboratory Results - last 24 hr 06/04/17 06/04/17 06:00 06:00 WBC 2.9 L RBC 2.25 L Hgb 7.8 L Hct 22.1 L MCV 98.2 H MCH 34.8 H MCHC 35.5 RDW 17.8 H Plt Count 78 L MPV 6.6 L Neutrophils % 66.8 Lymphocytes % 24.5 Monocytes % 4.2 Eosinophils % 3.9 Basophils % 0.6 Sodium 130 L Potassium 4.3 Chloride 95 L Carbon Dioxide 27 Anion Gap 8 BUN 13 Creatinine 0.6 Random Glucose 80 D Calcium 7.2 L Phosphorus 2.5 Magnesium 1.7 L Active Medications Generic Name Dose Route Start Last Admin Trade Name Freq PRN Reason Stop Dose Admin Atorvastatin Calcium 20 mg 05/31/17 22:00 06/03/17 22:22 Lipitor - PO 20 mg HS [facility] Administration Diltiazem HCl 30 mg 05/31/17 22:00 06/04/17 14:41 Cardizem - PEG 30 mg TID [facility] Administration Linezolid 300 mls @ 300 mls/hr 05/31/17 22:00 06/04/17 11:04 Zyvox 600 Mg Premix Bag (Restricted To Id) - IVPB 300 mls/hr BID [facility] Administration Protocol Trimethoprim/Sulfamethoxazole 256.25 mls @ 256.25 mls/hr 05/31/17 18:00 06/04 11:05 100 mg/ Dextrose IVPB 256.25 mls/hr Q8H-IV [facility] Administration Levothyroxine Sodium 100 mcg 06/02/17 14:15 06/04/17 06:14 Synthroid - PEG 100 mcg DAILY@0700 [facility] Administration Nystatin 1 applic 05/31/17 22:00 06/04/17 11:04 Mycostatin Cream - TP 1 applic BID [facility] Administration Pantoprazole Sodium 40 mg 06/03/17 10:00 06/04/17 11:04 Protonix Packets For Oral Suspension - PEG 40 mg DAILY [facility] Administration Assessment: 82 year old female with PMH CHF, hypothyroid, CAD s/p stent, presented to the ER with frequent falls and AMS Plan: 1. Acute Hypoxic Respiratory failure - Due to sepsis and PNA - Stable on NC following extubation 2. Seizure - No reported seizure like activity 3. Sepsis due to PNA and VRE UTI - Linezolid and Bactrim IV - To complete course on 06/05 - ID seeing 4. Elevated Troponins - Down trended - Likely demand ischemia due to sepsis 5. Anemia - Hgb with mild decrease - No need for transfusion at this time, transfuse hgb <7 - If persists, consider CTAP 6. Hypothyroid - Increased synthroid to 100mcg 7. Hypomagnesemia - Replete 1 gm IV today 8. Hypophosphatemia - Resolved - Stop neutraphos 9. Pseudohypocalcemia - Corrected ca 9 10. DVT ppx - SCD - Hold pharamcologic anticoagulation 11. Dementia 12. HTN - Cardizem tid Visit type - Emergency Visit Emergency Visit: Yes ED Registration Date: 04/01/17 Care time: The patient presented to the Emergency Department on the above date and was hospitalized for further evaluation of their emergent condition. - New Patient This patient is new to me today: Yes Date on this admission: 06/04/17 - Critical Care Critical Care patient: No
[2017-06-04] MEDS ORDERED: MAGNESIUM SULF 50% (8.12 MEQ/2 ML-1 GM VIAL) IVPB ONE (16:30)
[2017-06-04] MEDS: ATORVASTATIN CA 20 MG TABLET (FP) PO SCH (23:33)
[2017-06-05] MEDS: WATER IVPB SCH ×3 (01:24→18:39)
[2017-06-05] MEDS: TRIMETHOPRIM IVPB SCH ×3 (01:24→18:39)
[2017-06-05] MEDS: SULFAMETHOXAZOLE IVPB SCH ×3 (01:24→18:39)
[2017-06-05] MEDS: DEXTROSE 5% IVPB SCH ×3 (01:24→18:39)
[2017-06-05] MEDS: dilTIAZem HCL 30 MG TABLET (FP) PEG SCH ×3 (06:10→23:10)
[2017-06-05] MEDS: LEVOTHYROXINE NA 100 MCG TABLET (FP) PEG SCH (06:10)
[2017-06-05 08:09] LABS: BASOPHIL 0.5 % (0-2.0); EOSINOPHIL 3.6 % (0-4.5); MCH 34.8 pg (25.7-33.7); MCHC 35.6 g/dl (32.0-36.0); MEAN CELL VOLUME 97.7 fl (80-96); MEAN PLT VOLUME 6.8 fl (7.5-11.1); NEUTROPHILS 69.3 % (42.8-82.8); PLATELET COUNT 86 K/MM3 (134-434); RDW 17.8 % (11.6-15.6); WHITE BLOOD COUNT 3.4 K/mm3 (4.0-10.0)
--- NOTE | 2017-06-05 08:27 | PN ---
Progress Note, Physician Chief Complaint: Coverage for [employer] - Current Medication List Current Medications: Active Medications Atorvastatin Calcium (Lipitor -) 20 mg PO HS [facility] Last Admin: 06/04/17 23:33 Dose: 20 mg Diltiazem HCl (Cardizem -) 30 mg PEG TID [facility] Last Admin: 06/05/17 06:10 Dose: 30 mg Linezolid (Zyvox 600 Mg Premix Bag (Restricted To Id) -) 300 mls @ 300 mls/hr IVPB BID [facility] PRN Reason: Protocol Last Admin: 06/04/17 23:33 Dose: 300 mls/hr Trimethoprim/Sulfamethoxazole (100 mg/ Dextrose) 256.25 mls @ 256.25 mls/hr IVPB Q8H-IV [facility] Last Admin: 06/05/17 01:24 Dose: 256.25 mls/hr Levothyroxine Sodium (Synthroid -) 100 mcg PEG DAILY@0700 [facility] Last Admin: 06/05/17 06:10 Dose: 100 mcg Nystatin (Mycostatin Cream -) 1 applic TP BID [facility] Last Admin: 06/04/17 23:33 Dose: 1 applic Pantoprazole Sodium (Protonix Packets For Oral Suspension -) 40 mg PEG DAILY [facility] Last Admin: 06/04/17 11:04 Dose: 40 mg - Objective Vital Signs: Vital Signs Temperature 97.8 F 06/05/17 06:00 Pulse Rate 118 H 06/05/17 06:00 Respiratory Rate 22 06/05/17 06:00 Blood Pressure 149/87 06/05/17 06:00 O2 Sat by Pulse Oximetry (%) 96 06/04/17 22:00 Constitutional: Yes: No Distress Cardiovascular: Yes: Regular Rate and Rhythm Respiratory: No: Other (l rhonchi) Gastrointestinal: Yes: Soft Edema: No Labs: CBC, BMP 06/05/17 06:00 INR, PTT INR 1.11 (0.82-1.09) 05/12/17 01:35 Laboratory Tests 06/04/17 06/05/17 06/05/17 06:00 06:00 06:00 WBC 3.4 L Hgb 8.3 L Plt Count 86 L Sodium 130 L Pending Potassium 4.3 Pending BUN 13 Pending Creatinine 0.6 Pending Magnesium Pending - ....Imaging EKG: Image Reviewed (TELE: SR, VPCs) Assessment/Plan Problem List - Problems (1) CHF (congestive heart failure) Code(s): I50.9 - HEART FAILURE, UNSPECIFIED Qualifiers: Congestive heart failure type: unspecified congestive heart failure type Congestive heart failure chronicity: chronic Qualified Code(s): I50.9 - Heart failure, unspecified (2) Smoking addiction Code(s): F17.200 - NICOTINE DEPENDENCE, UNSPECIFIED, UNCOMPLICATED (3) Smoking Code(s): F17.200 - NICOTINE DEPENDENCE, UNSPECIFIED, UNCOMPLICATED (4) Aortic stenosis Code(s): I35.0 - NONRHEUMATIC AORTIC (VALVE) STENOSIS (5) Osteoporosis Code(s): M81.0 - AGE-RELATED OSTEOPOROSIS W/O CURRENT PATHOLOGICAL FRACTURE (6) Hypothyroidism Code(s): E03.9 - HYPOTHYROIDISM, UNSPECIFIED (7) HTN (hypertension) Code(s): I10 - ESSENTIAL (PRIMARY) HYPERTENSION (8) Macrocytosis Code(s): D75.89 - OTHER SPECIFIED DISEASES OF BLOOD AND BLOOD-FORMING ORGANS (9) Paroxysmal SVT (supraventricular tachycardia) Code(s): I47.1 - SUPRAVENTRICULAR TACHYCARDIA (10) Pancytopenia Code(s): D61.818 - OTHER PANCYTOPENIA (11) Altered mental status, unspecified Code(s): R41.82 - ALTERED MENTAL STATUS, UNSPECIFIED (12) UTI (urinary tract infection) Code(s): N39.0 - URINARY TRACT INFECTION, SITE NOT SPECIFIED (13) Dementia Code(s): F03.90 - UNSPECIFIED DEMENTIA WITHOUT BEHAVIORAL DISTURBANCE (14) Fever Code(s): R50.9 - FEVER, UNSPECIFIED (15) Aspiration pneumonia Code(s): J69.0 - PNEUMONITIS DUE TO INHALATION OF FOOD AND VOMIT (16) Anemia Code(s): D64.9 - ANEMIA, UNSPECIFIED Qualifiers: Anemia type: other cause Other causes of anemia: acute posthemorrhagic Qualified Code(s): D62 - Acute posthemorrhagic anemia (17) Acute respiratory failure with hypoxia and hypercapnia Code(s): J96.01 - ACUTE RESPIRATORY FAILURE WITH HYPOXIA; J96.02 - ACUTE RESPIRATORY FAILURE WITH HYPERCAPNIA (18) Shock Code(s): R57.9 - SHOCK, UNSPECIFIED Assessment/Plan (1) Smoking Code(s): F17.200 - NICOTINE DEPENDENCE, UNSPECIFIED, UNCOMPLICATED (2) Osteoporosis Code(s): M81.0 - AGE-RELATED OSTEOPOROSIS W/O CURRENT PATHOLOGICAL FRACTURE (3) Hypothyroidism Assessment/Plan: On Synthroid. TSH low; free T4 mildly elevated. Code(s): E03.9 - HYPOTHYROIDISM, UNSPECIFIED (4) HTN (hypertension) Assessment/Plan: on diltiazem (caution with systolic LV dysfunction, anemia, periods of low BP). Code(s): I10 - ESSENTIAL (PRIMARY) HYPERTENSION (5) Dementia Assessment/Plan: neuro w/u noted; OMS: cortical infarct; no acute CVA Code(s): F03.90 - UNSPECIFIED DEMENTIA WITHOUT BEHAVIORAL DISTURBANCE (6) Fever Assessment/Plan: pancytopenia, as per PMD Code(s): R50.9 - FEVER, UNSPECIFIED (7) Aspiration pneumonia Code(s): J69.0 - PNEUMONITIS DUE TO INHALATION OF FOOD AND VOMIT (8) Acute respiratory failure with hypoxia and hypercapnia Assessment/Plan: f/u with pulmonary Coverage for Malendowicz
[2017-06-05 08:29] LABS: ALBUMIN 2.1 g/dl (3.4-5.0); ANION GAP 11 (8-16); CALCIUM 7.3 mg/dL (8.5-10.1); CO2 23 mmol/L (21-32); GLUCOSE,RANDOM 105 mg/dL (74-106); MAGNESIUM 2.1 mg/dL (1.8-2.4)
[2017-06-05 08:34] LABS: ALK PHOS 174 U/L (45-117); BILIRUBIN,TOTAL 0.3 mg/dL (0.2-1.0); CREATININE 0.6 mg/dL (0.55-1.02); SGOT/AST 20 U/L (15-37); SGPT/ALT 26 U/L (12-78); TOT PROT 5.3 g/dl (6.4-8.2)
--- NOTE | 2017-06-05 09:02 | PN ---
Progress Note, Physician - Current Medication List Current Medications: Active Medications Atorvastatin Calcium (Lipitor -) 20 mg PO HS [facility] Last Admin: 06/04/17 23:33 Dose: 20 mg Diltiazem HCl (Cardizem -) 30 mg PEG TID [facility] Last Admin: 06/05/17 06:10 Dose: 30 mg Linezolid (Zyvox 600 Mg Premix Bag (Restricted To Id) -) 300 mls @ 300 mls/hr IVPB BID [facility] PRN Reason: Protocol Last Admin: 06/04/17 23:33 Dose: 300 mls/hr Trimethoprim/Sulfamethoxazole (100 mg/ Dextrose) 256.25 mls @ 256.25 mls/hr IVPB Q8H-IV [facility] Last Admin: 06/05/17 01:24 Dose: 256.25 mls/hr Levothyroxine Sodium (Synthroid -) 100 mcg PEG DAILY@0700 [facility] Last Admin: 06/05/17 06:10 Dose: 100 mcg Nystatin (Mycostatin Cream -) 1 applic TP BID [facility] Last Admin: 06/04/17 23:33 Dose: 1 applic Pantoprazole Sodium (Protonix Packets For Oral Suspension -) 40 mg PEG DAILY [facility] Last Admin: 06/04/17 11:04 Dose: 40 mg - Objective Vital Signs: Vital Signs Temperature 97.8 F 06/05/17 06:00 Pulse Rate 118 H 06/05/17 06:00 Respiratory Rate 22 06/05/17 06:00 Blood Pressure 149/87 06/05/17 06:00 O2 Sat by Pulse Oximetry (%) 96 06/04/17 22:00 Labs: CBC, BMP 06/05/17 06:00 06/05/17 06:00 INR, PTT INR 1.11 (0.82-1.09) 05/12/17 01:35 Problem List - Problems (1) Acute respiratory failure Assessment/Plan: resolving with Code(s): J96.00 - ACUTE RESPIRATORY FAILURE, UNSP W HYPOXIA OR HYPERCAPNIA (2) Aspiration pneumonia Assessment/Plan: being followed by ID Code(s): J69.0 - PNEUMONITIS DUE TO INHALATION OF FOOD AND VOMIT (3) CVA (cerebral vascular accident) Code(s): I63.9 - CEREBRAL INFARCTION, UNSPECIFIED (4) Dementia Code(s): F03.90 - UNSPECIFIED DEMENTIA WITHOUT BEHAVIORAL DISTURBANCE (5) Hypokalemia Assessment/Plan: resolved Code(s): E87.6 - HYPOKALEMIA (6) Hypomagnesemia Assessment/Plan: resolved Code(s): E83.42 - HYPOMAGNESEMIA (7) Septic shock Assessment/Plan: resolved Code(s): A41.9 - SEPSIS, UNSPECIFIED ORGANISM; R65.21 - SEVERE SEPSIS WITH SEPTIC SHOCK (8) HTN (hypertension) Assessment/Plan: c/w home medication will consider increasing diltiazem to 60mg TID Code(s): I10 - ESSENTIAL (PRIMARY) HYPERTENSION (9) Hypothyroidism Assessment/Plan: c/w levothyroixine 100mc daily Code(s): E03.9 - HYPOTHYROIDISM, UNSPECIFIED (10) Smoking Code(s): F17.200 - NICOTINE DEPENDENCE, UNSPECIFIED, UNCOMPLICATED
[2017-06-05] MEDS ORDERED: PT OWN MED DRAWER 7, Y5N ONE (09:04)
[2017-06-05] MEDS: LINEZOLID 600 MG PREMIX BAG 300 ML IVPB SCH ×2 (09:19→22:52)
[2017-06-05] MEDS: PANTOPRAZOLE SOD 40 MG SUSPENSION PACKET PEG SCH (09:19)
[2017-06-05] MEDS: NYSTATIN 100,000 UNIT/GM TOPICAL CREAM 15 GM TUBE TP SCH ×2 (09:20→23:10)
--- NOTE | 2017-06-05 16:14 | PN ---
Progress Note, Physician History of Present Illness: stable no new issues non verbal - Current Medication List Current Medications: Active Medications Atorvastatin Calcium (Lipitor -) 20 mg PO HS [facility] Last Admin: 06/04/17 23:33 Dose: 20 mg Diltiazem HCl (Cardizem -) 30 mg PEG TID [facility] Last Admin: 06/05/17 14:23 Dose: 30 mg Linezolid (Zyvox 600 Mg Premix Bag (Restricted To Id) -) 300 mls @ 300 mls/hr IVPB BID [facility] PRN Reason: Protocol Last Admin: 06/05/17 09:19 Dose: 300 mls/hr Trimethoprim/Sulfamethoxazole (100 mg/ Dextrose) 256.25 mls @ 256.25 mls/hr IVPB Q8H-IV [facility] Last Admin: 06/05/17 11:17 Dose: 256.25 mls/hr Levothyroxine Sodium (Synthroid -) 100 mcg PEG DAILY@0700 [facility] Last Admin: 06/05/17 06:10 Dose: 100 mcg Nystatin (Mycostatin Cream -) 1 applic TP BID [facility] Last Admin: 06/05/17 09:20 Dose: 1 applic Pantoprazole Sodium (Protonix Packets For Oral Suspension -) 40 mg PEG DAILY [facility] Last Admin: 06/05/17 09:19 Dose: 40 mg - Objective Vital Signs: Vital Signs Temperature 98.1 F 06/05/17 14:15 Pulse Rate 122 H 06/05/17 14:15 Respiratory Rate 22 06/05/17 14:15 Blood Pressure 158/92 06/05/17 14:15 O2 Sat by Pulse Oximetry (%) 94 L 06/05/17 10:16 Constitutional: Yes: No Distress, Calm Cardiovascular: Yes: S1, S2 Respiratory: Yes: Regular, CTA Bilaterally Gastrointestinal: Yes: Normal Bowel Sounds, Soft Musculoskeletal: Yes: WNL Extremities: Yes: Other Neurological: Yes: Alert, Other Labs: CBC, BMP 06/05/17 06:00 06/05/17 06:00 INR, PTT INR 1.11 (0.82-1.09) 05/12/17 01:35 Assessment/Plan Problem List - Problems (1) UTI (urinary tract infection) Code(s): N39.0 - URINARY TRACT INFECTION, SITE NOT SPECIFIED (2) Dementia Code(s): F03.90 - UNSPECIFIED DEMENTIA WITHOUT BEHAVIORAL DISTURBANCE (3) Pancytopenia Code(s): D61.818 - OTHER PANCYTOPENIA (4) CHF (congestive heart failure) Code(s): I50.9 - HEART FAILURE, UNSPECIFIED Qualifiers: Congestive heart failure type: unspecified congestive heart failure type Congestive heart failure chronicity: chronic Qualified Code(s): I50.9 - Heart failure, unspecified (5) HTN (hypertension) Code(s): I10 - ESSENTIAL (PRIMARY) HYPERTENSION (6) Hypothyroidism Code(s): E03.9 - HYPOTHYROIDISM, UNSPECIFIED Aspiration pneumonia Code(s): J69.0 - PNEUMONITIS DUE TO INHALATION OF FOOD AND VOMIT lactic acidosis plan continue monitoring will start deescalating abx from tomorrow nutrition rest as per primary patient stable
--- NOTE | 2017-06-05 16:21 | PN ---
Progress Note (short form) - Note Progress Note: PULMONARY Pt nonverbal. No fevers recorded. Last Vital Signs Temp Pulse Resp BP Pulse Ox 98.1 F 122 H 22 158/92 94 L 06/05/17 14:15 06/05/17 14:15 06/05/17 14:15 06/05/17 14:15 06/05/17 10:16 Gen: breathing nonlabored Heart: tachycardic, regular Lung: decreased breath sounds at the bases Abd: soft, nontender Ext: + edema CBC, BMP 06/05/17 06:00 06/05/17 06:00 Active Medications Atorvastatin Calcium (Lipitor -) 20 mg PO HS [facility] Last Admin: 06/04/17 23:33 Dose: 20 mg Diltiazem HCl (Cardizem -) 30 mg PEG TID [facility] Last Admin: 06/05/17 14:23 Dose: 30 mg Linezolid (Zyvox 600 Mg Premix Bag (Restricted To Id) -) 300 mls @ 300 mls/hr IVPB BID [facility] PRN Reason: Protocol Last Admin: 06/05/17 09:19 Dose: 300 mls/hr Trimethoprim/Sulfamethoxazole (100 mg/ Dextrose) 256.25 mls @ 256.25 mls/hr IVPB Q8H-IV [facility] Last Admin: 06/05/17 11:17 Dose: 256.25 mls/hr Levothyroxine Sodium (Synthroid -) 100 mcg PEG DAILY@0700 [facility] Last Admin: 06/05/17 06:10 Dose: 100 mcg Nystatin (Mycostatin Cream -) 1 applic TP BID [facility] Last Admin: 06/05/17 09:20 Dose: 1 applic Pantoprazole Sodium (Protonix Packets For Oral Suspension -) 40 mg PEG DAILY [facility] Last Admin: 06/05/17 09:19 Dose: 40 mg A/P s/p Acute Hypoxic Respiratory Failure Acute CVA Seizure from Above UTI Pneumonia +Troponins likely from [place]and Ischemia LV Systolic Dysfunction Hyponatremia Dementia - antibiotics per ID - enteral feeds - aspiration precautions - fluid restriction - monitor lytes - O2 to keep SpO2 >90% - DVT prophylaxis
--- NOTE | 2017-06-05 18:31 | HOSP ---
Physical Examination Vital Signs: Vital Signs Temperature 98.1 F 06/05/17 14:15 Pulse Rate 122 H 06/05/17 14:15 Respiratory Rate 22 06/05/17 14:15 Blood Pressure 158/92 06/05/17 14:15 O2 Sat by Pulse Oximetry (%) 94 L 06/05/17 10:16 Labs: CBC, BMP 06/05/17 06:00 06/05/17 06:00 Hospitalist Encounter Assessment: RN reports hematuria in roper bag Repeat UA, obtain kidney bladder US, PT/INR Pt is not on any blood thinners For congestion/secretions start duonebs Renal consult requested
[2017-06-05] MEDS: ALBUTEROL SO4 2.5/IPRATROPIUM 0.5 INH SOL 3 ML VIAL.NEB. NEB SCH ×2 (19:15→23:57)
[2017-06-05 19:39] LABS: URINE APPEARANCE CLOUDY; URINE BILIRUBIN NEGATIVE (NEGATIVE); URINE BLOOD 3+ (NEGATIVE); URINE COLOR RED; URINE GLUCOSE (UA) NEGATIVE (NEGATIVE); URINE KETONE NEGATIVE (NEGATIVE); URINE NITRITE NEGATIVE (NEGATIVE); URINE UROBILINOGEN NEGATIVE mg/dL (0.2-1.0)
[2017-06-05 19:42] LABS: URINE PROTEIN 2+ (NEGATIVE)
[2017-06-05 19:51] LABS: CALCIUM OXALATE CRYSTALS FEW /hpf (NONE SEEN); URINE RBC 3170; URINE WBC 9
[2017-06-05] MEDS ORDERED: FUROSEMIDE 40 MG/4 ML INJECTABLE VIAL ONE (20:04)
[2017-06-05 20:08] LABS: ARTERIAL BLD GAS O2 SATURATION 99.8 % (90-98.9); ARTERIAL BLOOD GAS BASE EXCESS -0.3 meq/l (-2-2); ARTERIAL BLOOD GAS HCO3 24.2 meq/L (22-26); ARTERIAL BLOOD GAS pH 7.39 (7.35-7.45)
[2017-06-05] MEDS ORDERED: FUROSEMIDE 40 MG/4 ML INJECTABLE VIAL IVPUSH ONE (20:08)
[2017-06-05 20:09] LABS: ALLENS TEST POSITIVE; ART PUNCT SITE LEFT RADIAL; LPM/O2% 100%; PT. ON O2? YES; TYPE OF O2 NONREBREATHER
--- NOTE | 2017-06-05 20:14 | RAPID ---
Physical Examination Vital Signs: Vital Signs Temperature 97.9 F 06/05/17 18:05 Pulse Rate 114 H 06/05/17 18:05 Respiratory Rate 22 06/05/17 18:05 Blood Pressure 138/106 06/05/17 18:05 O2 Sat by Pulse Oximetry (%) 94 L 06/05/17 10:16 Findings/Remarks: RRP called overhead around 7:55pm. Arrived in room found patient to be tachypenic and altered on non-rebreather sating 100% but labored. Stat EKG, ABG , CXR, 1 dose of lasix was given. ICU CONCHE OPERATOR informed and aware of patient's acute respiratory distress and possible transfer to the Unit with low threshold for intubation. Constitutional: Yes: Moderate Distress Neck: Yes: Other (central line in place) Cardiovascular: Yes: Tachycardia, S1 Respiratory: Yes: Accessory Muscle Use, Tachypnea, Other (on NRB) Labs: CBC, BMP 06/05/17 06:00 06/05/17 06:00 Rapid Response - Rapid Response Assessment: Acute on chronic hypoxemic respiratory failure - Stat EKG, ABG, CXR, lasix - Low threshold for intubation - Frequent suction - Chest PT Q4H - ICU monitoring
[2017-06-05 21:06] LABS: INR 1.02 (0.82-1.09); PROTHROMBIN TIME (PATIENT) 11.5 SEC (9.98-11.88)
[2017-06-05] MEDS ORDERED: NITROPRUSSIDE SODIUM 50,000 MCG in SODIUM CHLORIDE 248 ML IVPB SCH (22:00)
--- NOTE | 2017-06-05 22:12 | CONSULT ---
Consult Consult Specialty:: PULM/CCM Referred by:: Dr. Calin Blankenship Reason for Consultation:: Resp Fail - History of Present Illness Chief Complaint: SOB History of Present Illness: Mrs. Aguilar is an 82 y/o woman (pt of Dr. Mitchell) w/ KODI, hypothyroid, smoker, CHF, & CAD (s/p stents). Pt originally presents on 04/01 w/ poor PO intake, FTT, repeat falls, and AMS over the past few months. Evenually admitted to the Unit for Resp Fail, intubated extubated & returned to floor. Filing on floor w/ continued FTT. Upon last afternoon pt developed SOB, (BNP > 13,000 & CXR most c/ w PE). Pt brought down on an CELLAR PUMPER. Pt in obvious resp fail upon arrival w/ Rales & Hypertension. Plan is for Bi-PaP, Lasix, NTG. - History Source History Provided By: Medical Record Limitations to Obtaining History: Clinical Condition - Past Medical History Cardio/Vascular: Yes: CHF, HTN Pulmonary: Yes: COPD Endocrine: Yes: Hypothyroidism - Alcohol/Substance Use Hx Alcohol Use: No - Smoking History Smoking history: Former smoker Have you smoked in the past 12 months: Yes Aproximately how many cigarettes per day: 20 If you are a former smoker, when did you quit?: 01/2017 - Social History History of Recent Travel: No Home Medications - Allergies Allergies/Adverse Reactions: Allergies Allergy/AdvReac Type Severity Reaction Status Date / Time pineapple [Pineapple] Allergy Severe Swelling Verified 04/01/17 13:45 adhesive tape Allergy Mild Rash Verified 04/01/17 13:45 - Home Medications Home Medications: Ambulatory Orders Aspirin Coated [Ecotrin -] 81 mg PO DAILY #30 tablet.ec 01/03/14 Carvedilol [Coreg -] 3.125 mg PO BID #60 tablet 01/03/14 Levothyroxine [Synthroid -] 100 mcg PO DAILY@0700 #30 tablet 01/03/14 Lisinopril [Prinivil] 2.5 mg PO DAILY #30 tablet 01/03/14 Atorvastatin Ca [Lipitor] 10 mg PO HS 04/01/17 Clopidogrel Bisulfate [Plavix -] 75 mg PO DAILY 04/01/17 Folic Acid 1 mg PO DAILY 04/01/17 Family Disease History - Family Disease History Family History: Unable to Obtain (Pt In Resp Fail) Review of Systems Unable to obtain ROS, reason: Pt in Resp Fail Physical Exam Vital Signs: Vital Signs Temperature 97.9 F 06/05/17 18:05 Pulse Rate 114 H 06/05/17 18:05 Respiratory Rate 22 06/05/17 18:05 Blood Pressure 138/106 06/05/17 18:05 O2 Sat by Pulse Oximetry (%) 94 L 06/05/17 10:16 Constitutional: Yes: Cachectic, Severe Distress, Pallor, Thin Neck: Yes: WNL, Supple, Trachea Midline Cardiovascular: Yes: WNL, Regular Rate and Rhythm Respiratory: Yes: Accessory Muscle Use, On Venti-Mask, Rales, SOB, SOB on Exertion, Tachypnea Gastrointestinal: Yes: WNL, Normal Bowel Sounds, Other (PEG) ...Rectal Exam: Yes: Deferred Renal/: Yes: WNL Breast(s): Yes: WNL Musculoskeletal: Yes: WNL Extremities: Yes: WNL Edema: Yes Edema: LUE: 3+, RUE: 4+, LLE: 3+, RLE: 4+ Neurological: Yes: Aphasia ...Motor Strength: WNL Psychiatric: Yes: WNL Labs: CBC, BMP 06/05/17 06:00 06/05/17 06:00 Imaging - Results Chest X-ray: Image Reviewed (06/06: L IJ TLC in good position, Pulm edema +/- PNA (My Read).) Problem List - Problems (1) Acute on chronic systolic (congestive) heart failure Code(s): I50.23 - ACUTE ON CHRONIC SYSTOLIC (CONGESTIVE) HEART FAILURE (2) Acute respiratory failure Code(s): J96.00 - ACUTE RESPIRATORY FAILURE, UNSP W HYPOXIA OR HYPERCAPNIA (3) Acute respiratory failure with hypoxia and hypercapnia Code(s): J96.01 - ACUTE RESPIRATORY FAILURE WITH HYPOXIA; J96.02 - ACUTE RESPIRATORY FAILURE WITH HYPERCAPNIA (4) Altered mental status, unspecified Code(s): R41.82 - ALTERED MENTAL STATUS, UNSPECIFIED (5) Aspiration pneumonia Code(s): J69.0 - PNEUMONITIS DUE TO INHALATION OF FOOD AND VOMIT (6) CVA (cerebral vascular accident) Code(s): I63.9 - CEREBRAL INFARCTION, UNSPECIFIED (7) Dementia Code(s): F03.90 - UNSPECIFIED DEMENTIA WITHOUT BEHAVIORAL DISTURBANCE (8) CHF (congestive heart failure) Code(s): I50.9 - HEART FAILURE, UNSPECIFIED Qualifiers: Congestive heart failure type: unspecified congestive heart failure type Congestive heart failure chronicity: chronic Qualified Code(s): I50.9 - Heart failure, unspecified (9) Smoking Code(s): F17.200 - NICOTINE DEPENDENCE, UNSPECIFIED, UNCOMPLICATED Assessment/Plan ASSESS: Recurrent Acute Hypoxic Respiratory Failure CVA Szs UTI Pna LV Systolic Dysfunction Hyponatremia Dementia PLAN: - NPO - Intubate - antibiotics per ID - Diurese - fluid restriction - monitor lytes - O2 to keep SpO2 >90% - DVT prophylaxis
[2017-06-05] MEDS ORDERED: FUROSEMIDE 40 MG/4 ML INJECTABLE VIAL IVPUSH STA (22:50)
[2017-06-05] MEDS ORDERED: FUROSEMIDE INJECTION 100 MG in DEXTROSE 5%-WATER - 90 ML IVPB SCH (23:00)
[2017-06-05] MEDS: ATORVASTATIN CA 20 MG TABLET (FP) PO SCH (23:10)
[2017-06-05] MEDS ORDERED: NITROPRUSSIDE SODIUM 25 MG/1 ML ML IVPB ONE (23:16)
[2017-06-05] MEDS ORDERED: ETOMIDATE 40 MG/20 ML VIAL IVPUSH ONE (23:27)
[2017-06-05] MEDS ORDERED: MIDAZOLAM HCL 5 MG/1 ML Single Dose Vial IVPUSH ONE (23:28)
[2017-06-05] MEDS ORDERED: RAPID SEQUENCE INTUBATION KIT NR ONE (23:34)
--- NOTE | 2017-06-06 00:04 | PROC ---
Intubation - Intubation Reason for Intubation: Respiratory Failure Time of Intubation: 23:45 Intubation Method: orotracheal Blade used: Mac Tube Size (cm): 7.5 Tube position @ lip (cm): 26 Tube position confirmed by: Direct visualization, CO2 detector, Chest x-ray, Breath sounds Breath Sounds after Intubation: equal Post Intubation Xray: Yes (GRDE III vw Req EXPERIENCED BAND MASTER. INTUBATED ON FIRST PASS IN < 30sec. )
[2017-06-06] MEDS: SULFAMETHOXAZOLE IVPB SCH ×2 (01:32→10:11)
[2017-06-06] MEDS: DEXTROSE 5% IVPB SCH ×2 (01:32→10:11)
[2017-06-06] MEDS: WATER IVPB SCH ×2 (01:32→10:11)
[2017-06-06] MEDS: TRIMETHOPRIM IVPB SCH ×2 (01:32→10:11)
[2017-06-06] MEDS: ALBUTEROL SO4 2.5/IPRATROPIUM 0.5 INH SOL 3 ML VIAL.NEB. NEB SCH ×4 (06:03→23:04)
[2017-06-06 06:44] LABS: BASOPHIL 0.4 % (0-2.0); EOSINOPHIL 1.8 % (0-4.5); MCH 34.5 pg (25.7-33.7); MCHC 35.6 g/dl (32.0-36.0); MEAN CELL VOLUME 96.7 fl (80-96); MEAN PLT VOLUME 6.3 fl (7.5-11.1); NEUTROPHILS 75.5 % (42.8-82.8); PLATELET COUNT 83 K/MM3 (134-434); RDW 17.4 % (11.6-15.6); WHITE BLOOD COUNT 2.9 K/mm3 (4.0-10.0)
[2017-06-06] MEDS: MIDAZOLAM 100 MG in SODIUM CHLORIDE 100 ML IVPB SCH (07:02)
[2017-06-06 07:07] LABS: ALBUMIN 2.3 g/dl (3.4-5.0); ALK PHOS 182 U/L (45-117); ANION GAP 8 (8-16); BILIRUBIN,TOTAL 0.3 mg/dL (0.2-1.0); CALCIUM 7.1 mg/dL (8.5-10.1); CO2 27 mmol/L (21-32); CREATININE 0.7 mg/dL (0.55-1.02); GLUCOSE,RANDOM 70 mg/dL (74-106); MAGNESIUM 1.8 mg/dL (1.8-2.4); SGOT/AST 23 U/L (15-37); SGPT/ALT 26 U/L (12-78); TOT PROT 5.6 g/dl (6.4-8.2)
[2017-06-06] MEDS: LEVOTHYROXINE NA 100 MCG TABLET (FP) PEG SCH (07:28)
--- NOTE | 2017-06-06 08:26 | PN ---
Progress Note, Physician - Current Medication List Current Medications: Active Medications Albuterol/Ipratropium (Duoneb -) 1 amp NEB QIDR [facility] Last Admin: 06/06/17 06:03 Dose: 1 amp Atorvastatin Calcium (Lipitor -) 20 mg PO HS [facility] Last Admin: 06/05/17 23:10 Dose: 20 mg Diltiazem HCl (Cardizem -) 30 mg PEG TID [facility] Last Admin: 06/05/17 23:10 Dose: Not Given Linezolid (Zyvox 600 Mg Premix Bag (Restricted To Id) -) 300 mls @ 300 mls/hr IVPB BID [facility] PRN Reason: Protocol Last Admin: 06/05/17 22:52 Dose: 300 mls/hr Trimethoprim/Sulfamethoxazole (100 mg/ Dextrose) 256.25 mls @ 256.25 mls/hr IVPB Q8H-IV [facility] Last Admin: 06/06/17 01:32 Dose: 256.25 mls/hr Furosemide 100 mg/ Dextrose 100 mls @ 5 mls/hr IVPB TITR [facility] PRN Reason: 5 MG/HR Last Admin: 06/06/17 01:34 Dose: Not Given Midazolam HCl 100 mg/ Sodium (Chloride) 100 mls @ 3 mls/hr IVPB TITR [facility]; 3 MG/ HR PRN Reason: Protocol Last Admin: 06/06/17 07:02 Dose: 3 mg/hr, 3 mls/hr Levothyroxine Sodium (Synthroid -) 100 mcg PEG DAILY@0700 [facility] Last Admin: 06/06/17 07:28 Dose: 100 mcg Nystatin (Mycostatin Cream -) 1 applic TP BID [facility] Last Admin: 06/05/17 23:10 Dose: 1 applic Pantoprazole Sodium (Protonix Packets For Oral Suspension -) 40 mg PEG DAILY [facility] Last Admin: 06/05/17 09:19 Dose: 40 mg - Objective Vital Signs: Vital Signs Temperature 98.4 F 06/06/17 02:00 Pulse Rate 99 H 06/06/17 02:00 Respiratory Rate 29 H 06/06/17 07:13 Blood Pressure 106/64 06/06/17 02:00 O2 Sat by Pulse Oximetry (%) 100 06/05/17 23:59 Constitutional: Yes: Well Nourished Eyes: Yes: WNL HENT: Yes: WNL Cardiovascular: Yes: Tachycardia, S1, S2 Respiratory: Yes: Intubated Gastrointestinal: Yes: WNL ...Rectal Exam: Yes: Other (rectal tube in place) Genitourinary: Yes: Beck Present Extremities: Yes: WNL Edema: LUE: 1+, RUE: 1+, LLE: 1+, RLE: 1+ Peripheral Pulses WNL: Yes Labs: CBC, BMP 06/06/17 06:00 06/06/17 06:00 INR, PTT INR 1.02 (0.82-1.09) 06/05/17 20:30 - ....Imaging Chest X-ray: Image Reviewed X-ray: Image Reviewed EKG: Image Reviewed Problem List - Problems (1) Acute respiratory failure Assessment/Plan: patient was in respiratory distress in the evening, she was intubated for respiratory failure. and transferred to the ICU for further management. patient's son wants everything to be done for the mother including intubation and possible tracheostomy placement if needed as per previous note. c/w respiratory support for the patient. 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 and the patient is on Bactrim DS will continue with ID recommendation Code(s): J69.0 - PNEUMONITIS DUE TO INHALATION OF FOOD AND VOMIT Qualifiers: Aspiration pneumonia type: unspecified (3) CVA (cerebral vascular accident) Assessment/Plan: no changes Code(s): I63.9 - CEREBRAL INFARCTION, UNSPECIFIED (4) Dementia Code(s): F03.90 - UNSPECIFIED DEMENTIA WITHOUT BEHAVIORAL DISTURBANCE Qualifiers: Dementia type: unspecified type Dementia behavioral disturbance: without behavioral disturbance Qualified Code(s): F03.90 - Unspecified dementia without behavioral disturbance (5) Hypokalemia Assessment/Plan: resolved Code(s): E87.6 - HYPOKALEMIA (6) Hypomagnesemia Assessment/Plan: resolved Code(s): E83.42 - HYPOMAGNESEMIA (7) Septic shock Assessment/Plan: resolved Code(s): A41.9 - SEPSIS, UNSPECIFIED ORGANISM; R65.21 - SEVERE SEPSIS WITH SEPTIC SHOCK (8) HTN (hypertension) Assessment/Plan: will hold medication due to the change in the patient clinical condition Code(s): I10 - ESSENTIAL (PRIMARY) HYPERTENSION (9) Hypothyroidism Assessment/Plan: c/w levothyroixine Code(s): E03.9 - HYPOTHYROIDISM, UNSPECIFIED Qualifiers: Hypothyroidism type: unspecified Qualified Code(s): E03.9 - Hypothyroidism , unspecified (10) VRE (vancomycin-resistant Enterococci) infection Assessment/Plan: VRE in the catheter patient is on Linazolid 600mg daily per ID Code(s): A49.1 - STREPTOCOCCAL INFECTION, UNSPECIFIED SITE; Z16.21 - RESISTANCE TO VANCOMYCIN (11) Tachycardia Assessment/Plan: patient is in an acute respiratory failure will avoid any medication unless the patient is in atrial fibrillation with RVR then will consider treatment cardiology is on board for the patient management Code(s): R00.0 - TACHYCARDIA, UNSPECIFIED (12) SIRS due to infectious process without acute organ dysfunction Assessment/Plan: HR 120s WBC < 4K AMS Code(s): A41.9 - SEPSIS, UNSPECIFIED ORGANISM Assessment/Plan patient was a intubated after she was noted to be in respiratoy distress the CXR showed Right sided infiltation, patient was given 80mg (40mg x 2) furosemide last night, she is still intubated, cardiology and PMD agree that the CXR does not fit to be acute pulmoary edema. Will obtain a CTA to evaluate and R/o pulmonary embolism and to evaluate the patient for possible aspiration pneumonia
--- NOTE | 2017-06-06 08:35 | PN ---
Progress Note, Physician Chief Complaint: rapid response called last evening for respiratory distress The impression of the manager it training was CHF, however, the CXR findings appear unilateral predominantly right sided raising the question of PNA She was given a total of 80mg of IV lasix last night and intubated. - Current Medication List Current Medications: Active Medications Albuterol/Ipratropium (Duoneb -) 1 amp NEB QIDR [facility] Last Admin: 06/06/17 06:03 Dose: 1 amp Atorvastatin Calcium (Lipitor -) 20 mg PO HS [facility] Last Admin: 06/05/17 23:10 Dose: 20 mg Diltiazem HCl (Cardizem -) 30 mg PEG TID [facility] Last Admin: 06/05/17 23:10 Dose: Not Given Linezolid (Zyvox 600 Mg Premix Bag (Restricted To Id) -) 300 mls @ 300 mls/hr IVPB BID [facility] PRN Reason: Protocol Last Admin: 06/05/17 22:52 Dose: 300 mls/hr Trimethoprim/Sulfamethoxazole (100 mg/ Dextrose) 256.25 mls @ 256.25 mls/hr IVPB Q8H-IV [facility] Last Admin: 06/06/17 01:32 Dose: 256.25 mls/hr Furosemide 100 mg/ Dextrose 100 mls @ 5 mls/hr IVPB TITR [facility] PRN Reason: 5 MG/HR Last Admin: 06/06/17 01:34 Dose: Not Given Midazolam HCl 100 mg/ Sodium (Chloride) 100 mls @ 3 mls/hr IVPB TITR JOCELYNE; 3 MG/ HR PRN Reason: Protocol Last Admin: 06/06/17 07:02 Dose: 3 mg/hr, 3 mls/hr Levothyroxine Sodium (Synthroid -) 100 mcg PEG DAILY@0700 [facility] Last Admin: 06/06/17 07:28 Dose: 100 mcg Nystatin (Mycostatin Cream -) 1 applic TP BID [facility] Last Admin: 06/05/17 23:10 Dose: 1 applic Pantoprazole Sodium (Protonix Packets For Oral Suspension -) 40 mg PEG DAILY [facility] Last Admin: 06/05/17 09:19 Dose: 40 mg - Objective Vital Signs: Vital Signs Temperature 98.4 F 06/06/17 02:00 Pulse Rate 99 H 06/06/17 02:00 Respiratory Rate 29 H 06/06/17 07:13 Blood Pressure 106/64 06/06/17 02:00 O2 Sat by Pulse Oximetry (%) 100 06/05/17 23:59 Constitutional: Yes: Other (+ ETT) Cardiovascular: Yes: Regular Rate and Rhythm Respiratory: Yes: Other (= breath sounds bilaterally) Gastrointestinal: Yes: Soft Edema: No Neurological: Yes: Other (sedated on vent) Labs: CBC, BMP 06/06/17 06:00 06/06/17 06:00 INR, PTT INR 1.02 (0.82-1.09) 06/05/17 20:30 Microbiology 05/27/17 14:30 Urine - Urine Beck Urine Culture - Final Pseudomonas Aeruginosa 05/12/17 15:00 Stool Salmonella/Shigella Culture - Final 05/12/17 15:00 Stool Escherichia coli 0157 Culture - Final S Aureus NO GROWTH OF CAMPYLOBACTER SPECIES OBTAINED NO GROWTH OF YERSINIA SPECIES OBTAINED NO GROWTH OF VIBRIO SPECIES OBTAINED NO GROWTH OF E COLI 0157 OBTAINED 05/12/17 01:35 Urine - Urine - Catheterized Urine Culture - Final Vr Ec Faecium Laboratory Tests 06/05/17 06/05/17 06/06/17 20:00 20:30 06:00 WBC 2.9 L Hgb 8.1 L Plt Count 83 L ABG pH 7.39 ABG pCO2 at Pt Temp 41.4 ABG pO2 at Pt Temp 302.0 H* D Oxygen Flow Rate 100% Sodium Potassium Creatinine B-Natriuretic Peptide 80564.18 H 06/06/17 06:00 WBC Hgb Plt Count ABG pH ABG pCO2 at Pt Temp ABG pO2 at Pt Temp Oxygen Flow Rate Sodium 125 L Potassium 4.7 Creatinine 0.7 B-Natriuretic Peptide - ....Imaging EKG: Other (TELE: Sinus tach) Assessment/Plan Recurrent Acute Hypoxic Respiratory Failure: PNA vs CHF? CVA Szs UTI LV Systolic Dysfunction Hyponatremia Dementia Pancytopenia REC: -Case d/w PMD: unclear if this is CHF as CXR shows unilateral findings. -Will obtain CT scan: evaluate for PNA, r/o PE. -Cont abx as per PMD, vent support -hold on further diuresis for now. -Suspect BP readings may be spurious, will repeat and if truly elevated adjust BP meds
[2017-06-06 09:14] LABS: ARTERIAL BLOOD GAS BASE EXCESS 0.8 meq/l (-2-2); ARTERIAL BLOOD GAS HCO3 24.2 meq/L (22-26); ARTERIAL BLOOD GAS pH 7.45 (7.35-7.45)
[2017-06-06 09:15] LABS: ALLENS TEST POSITIVE; ART PUNCT SITE RIGHT BRACHIAL; LPM/O2% 100; MECH. VENT. ESPIRIT; PT. ON O2? YES; TYPE OF O2 MECH VENT
[2017-06-06 09:16] LABS: VENT RATE 20; VT/PRESS 350
[2017-06-06] MEDS: dilTIAZem HCL 30 MG TABLET (FP) PEG SCH ×3 (09:30→21:52)
[2017-06-06] MEDS: LINEZOLID 600 MG PREMIX BAG 300 ML IVPB SCH (10:12)
[2017-06-06] MEDS: PANTOPRAZOLE SOD 40 MG SUSPENSION PACKET PEG SCH (10:12)
--- NOTE | 2017-06-06 11:20 | PN ---
Progress Note (short form) - Note Progress Note: PULMONARY/CCM Pt seen and examined in the ICU. Events overnight noted. Now re-intubated for 3rd time this admission. CXR consistent with aspiration. Last Vital Signs Temp Pulse Resp BP Pulse Ox 99.5 F 117 H 20 86/48 100 06/06/17 10:00 06/06/17 10:00 06/06/17 10:00 06/06/17 10:00 06/05/17 23:59 Intake & Output 06/03/17 06/04/17 06/05/17 06/06/17 23:59 23:59 23:59 23:59 Intake Total 2420 1670 960 250 Output Total 1300 3250 1200 500 Balance 1120 -1580 -240 -250 Weight 144 lb 5 oz 142 lb 12.8 oz 133 lb 141 lb 1.6 oz Gen: intubated, sedated Heart: tachycardic, regular Lung: decreased breath sounds at the bases Abd: soft, nontender Ext: + edema CBC, BMP 06/06/17 06:00 06/06/17 06:00 Active Medications Albuterol/Ipratropium (Duoneb -) 1 amp NEB QIDR [facility] Last Admin: 06/06/17 06:03 Dose: 1 amp Atorvastatin Calcium (Lipitor -) 20 mg PO HS [facility] Last Admin: 06/05/17 23:10 Dose: 20 mg Diltiazem HCl (Cardizem -) 30 mg PEG TID [facility] Last Admin: 06/06/17 09:30 Dose: Not Given Linezolid (Zyvox 600 Mg Premix Bag (Restricted To Id) -) 300 mls @ 300 mls/hr IVPB BID [facility] PRN Reason: Protocol Last Admin: 06/06/17 10:12 Dose: 300 mls/hr Trimethoprim/Sulfamethoxazole (100 mg/ Dextrose) 256.25 mls @ 256.25 mls/hr IVPB Q8H-IV [facility] Last Admin: 06/06/17 10:11 Dose: 256.25 mls/hr Midazolam HCl 100 mg/ Sodium (Chloride) 100 mls @ 3 mls/hr IVPB TITR [facility]OC[facility]NE; 3 MG/ HR PRN Reason: Protocol Last Admin: 06/06/17 07:02 Dose: 3 mg/hr, 3 mls/hr Levothyroxine Sodium (Synthroid -) 100 mcg PEG DAILY@0700 [facility] Last Admin: 06/06/17 07:28 Dose: 100 mcg Nystatin (Mycostatin Cream -) 1 applic TP BID [facility] Last Admin: 06/05/17 23:10 Dose: 1 applic Pantoprazole Sodium (Protonix Packets For Oral Suspension -) 40 mg PEG DAILY [facility] Last Admin: 06/06/17 10:12 Dose: 40 mg A/P Acute Hypoxic Respiratory Failure Aspiration Pneumonia vs Pneumonitis Acute CVA Seizure from Above UTI Pneumonia +Troponins likely from [place]and Ischemia LV Systolic Dysfunction Hyponatremia Dementia - antibiotics per ID - enteral feeds - aspiration precautions - fluid restriction - monitor lytes - taper O2 to keep SpO2 >90% - continue volume assist control - it is clear that pt is unable to protect her airway as this is her 3rd intubation this admission, will need tracheostomy pending family wishes - DVT/GI prophylaxis - continue ICU monitoring critical care time spent in reviewing chart, evaluating patient and formulating plan 35 min
--- NOTE | 2017-06-06 13:02 | PN ---
Progress Note, Physician History of Present Illness: events noted patient went into resp distress no intubated again - Current Medication List Current Medications: Active Medications Albuterol/Ipratropium (Duoneb -) 1 amp NEB QIDR [facility] Last Admin: 06/06/17 11:30 Dose: 1 amp Atorvastatin Calcium (Lipitor -) 20 mg PO HS [facility] Last Admin: 06/05/17 23:10 Dose: 20 mg Diltiazem HCl (Cardizem -) 30 mg PEG TID [facility] Last Admin: 06/06/17 09:30 Dose: Not Given Trimethoprim/Sulfamethoxazole (100 mg/ Dextrose) 256.25 mls @ 256.25 mls/hr IVPB Q8H-IV [facility] Last Admin: 06/06/17 10:11 Dose: 256.25 mls/hr Midazolam HCl 100 mg/ Sodium (Chloride) 100 mls @ 3 mls/hr IVPB TITR [facility]; 3 MG/ HR PRN Reason: Protocol Last Admin: 06/06/17 07:02 Dose: 3 mg/hr, 3 mls/hr Piperacillin/Tazobactam/Dextrose (Zosyn 3.375gm Ivpb (Premix)) 50 mls @ 100 mls /hr IVPB Q8H-IV [facility] PRN Reason: Protocol Levothyroxine Sodium (Synthroid -) 100 mcg PEG DAILY@0700 [facility] Last Admin: 06/06/17 07:28 Dose: 100 mcg Nystatin (Mycostatin Cream -) 1 applic TP BID [facility] Last Admin: 06/05/17 23:10 Dose: 1 applic Pantoprazole Sodium (Protonix Packets For Oral Suspension -) 40 mg PEG DAILY [facility] Last Admin: 06/06/17 10:12 Dose: 40 mg - Objective Vital Signs: Vital Signs Temperature 99.5 F 06/06/17 10:00 Pulse Rate 113 H 06/06/17 12:25 Respiratory Rate 20 06/06/17 12:25 Blood Pressure 81/43 06/06/17 12:25 O2 Sat by Pulse Oximetry (%) 100 06/05/17 23:59 Constitutional: Yes: Other Cardiovascular: Yes: Regular Rate and Rhythm Respiratory: Yes: Intubated, Mechanically Ventilated Gastrointestinal: Yes: Normal Bowel Sounds, Soft, Other Musculoskeletal: Yes: WNL Extremities: Yes: WNL Neurological: Yes: Other Labs: CBC, BMP 06/06/17 06:00 06/06/17 06:00 INR, PTT INR 1.02 (0.82-1.09) 06/05/17 20:30 - ....Imaging Chest X-ray: Report Reviewed, Image Reviewed Assessment/Plan Problem List - Problems (1) UTI (urinary tract infection) Code(s): N39.0 - URINARY TRACT INFECTION, SITE NOT SPECIFIED (2) Dementia Code(s): F03.90 - UNSPECIFIED DEMENTIA WITHOUT BEHAVIORAL DISTURBANCE (3) Pancytopenia Code(s): D61.818 - OTHER PANCYTOPENIA (4) CHF (congestive heart failure) Code(s): I50.9 - HEART FAILURE, UNSPECIFIED Qualifiers: Congestive heart failure type: unspecified congestive heart failure type Congestive heart failure chronicity: chronic Qualified Code(s): I50.9 - Heart failure, unspecified (5) HTN (hypertension) Code(s): I10 - ESSENTIAL (PRIMARY) HYPERTENSION (6) Hypothyroidism Code(s): E03.9 - HYPOTHYROIDISM, UNSPECIFIED Aspiration pneumonia Code(s): J69.0 - PNEUMONITIS DUE TO INHALATION OF FOOD AND VOMIT lactic acidosis patient reintubated plan will stop zyox will start zosyn continue bactrim for now monitor resp status aspiration precautions nutrition cc time 40 min
[2017-06-06 13:23] LABS: URINE LEUK ESTERASE Negative (NEGATIVE)
[2017-06-06] MEDS ORDERED: SODIUM CHLORIDE 1,000 ML IV STA ×2 (13:26→16:34)
[2017-06-06 13:38] VITALS: BMI 25.0
--- NOTE | 2017-06-06 13:38 | CON.NEP ---
Consult Consult Specialty:: nephrology Reason for Consultation:: hematuria - History of Present Illness Chief Complaint: intubated History of Present Illness: 82 y/o F w/PMH of hypothyroidism, HTN, CAD (s/p stent placement 2 years ago). She has been in the hospital since March. Was admitted for frequent falls and altered mental status. Has been intubated 2 times before and is uintubated again since last night. I am called because of hematuria. She is not able to give any history. Has been on multiple antibiotics since admission. May have and aspiration pneumonia now which resulted in intubation. She was not on anticoagulants. - History Source History Provided By: Medical Record Limitations to Obtaining History: Clinical Condition - Past Medical History Cardio/Vascular: Yes: CHF, HTN Pulmonary: Yes: COPD Endocrine: Yes: Hypothyroidism - Alcohol/Substance Use Hx Alcohol Use: No - Smoking History Smoking history: Former smoker Have you smoked in the past 12 months: Yes Aproximately how many cigarettes per day: 20 If you are a former smoker, when did you quit?: 01/2017 - Social History History of Recent Travel: No Home Medications - Allergies Allergies/Adverse Reactions: Allergies Allergy/AdvReac Type Severity Reaction Status Date / Time pineapple [Pineapple] Allergy Severe Swelling Verified 04/01/17 13:45 adhesive tape Allergy Mild Rash Verified 04/01/17 13:45 - Home Medications Home Medications: Ambulatory Orders Aspirin Coated [Ecotrin -] 81 mg PO DAILY #30 tablet.ec 01/03/14 Carvedilol [Coreg -] 3.125 mg PO BID #60 tablet 01/03/14 Levothyroxine [Synthroid -] 100 mcg PO DAILY@0700 #30 tablet 01/03/14 Lisinopril [Prinivil] 2.5 mg PO DAILY #30 tablet 01/03/14 Atorvastatin Ca [Lipitor] 10 mg PO HS 04/01/17 Clopidogrel Bisulfate [Plavix -] 75 mg PO DAILY 04/01/17 Folic Acid 1 mg PO DAILY 04/01/17 Family Disease History - Family Disease History Family History: Unable to Obtain Review of Systems Unable to obtain ROS, reason: intubated Nephrology Consult - Height Height: 5 ft 3 in - Weight Weight: 141 lb 1.6 oz - BMI Body Mass Index (BMI): 25.0 - Lab Results CBC,BMP: CBC, BMP 06/06/17 06:00 11/12/17 06:00 Anion Gap: Anion Gap Anion Gap 8 (8-16) 06/06/17 06:00 - Imaging Chest X-ray: Report Reviewed (atelectasis and or infiltrate) - Physical Examination Vital Signs: Vital Signs Temperature 99.5 F 06/06/17 10:00 Pulse Rate 113 H 06/06/17 12:25 Respiratory Rate 20 06/06/17 12:25 Blood Pressure 81/43 06/06/17 12:25 O2 Sat by Pulse Oximetry (%) 100 06/05/17 23:59 Constitutional: Yes: No Distress, Other (intubated) Eyes: Yes: Conjunctiva Clear HENT: Yes: Atraumatic, Normocephalic Neck: Yes: Supple, Trachea Midline Cardiovascular: Yes: Regular Rate and Rhythm Respiratory: Yes: Regular, Mechanically Ventilated Gastrointestinal: Yes: Normal Bowel Sounds Renal/: Yes: Roper Present (has minimal hematuria) Musculoskeletal: Yes: WNL Extremities: Yes: WNL Edema: Yes Edema: LUE: Trace, RUE: Trace, LLE: Trace, RLE: Trace Wound/Incision: Yes: Clean/Dry Neurological: Yes: Unresponsive Psychiatric: Yes: Other (awake but intubated and does not respond) Assessment/Plan IMPRESSION hyponatremia- hypervolemic pancytopenia- in part related to antibiotics hypothyroidism hematuria seems to be better, maybe roper trauma PLAN repeat urinalysis obtain renal/bladder sono heme eval of pancytopenia diurese as a way to improve hyponatremia antibiotics need clarification. Would dc bactrim if ok with ID since it can cause hyponatremia repeat cortisol level MV
[2017-06-06] MEDS: NYSTATIN 100,000 UNIT/GM TOPICAL CREAM 15 GM TUBE TP SCH ×2 (14:16→21:52)
--- NOTE | 2017-06-06 15:18 | EKG ---
Test Reason : Blood Pressure : / mmHG Vent. Rate : 121 BPM Atrial Rate : 121 BPM P-R Int : 116 ms QRS Dur : 080 ms QT Int : 300 ms P-R-T Axes : 057 045 -11 degrees QTc Int : 426 ms SINUS TACHYCARDIA POSSIBLE LEFT ATRIAL ENLARGEMENT LOW VOLTAGE QRS RSR' V1-V2, INCOMPLETE RBBBB NONSPECIFIC T WAVE ABNORMALITY ABNORMAL ECG WHEN COMPARED WITH ECG OF 29-MAY-2017 10:25, VENT. RATE HAS INCREASED BY 43 BPM NONSPECIFIC T WAVE ABNORMALITY, IMPROVED IN ANTEROLATERAL LEADS REPEAT EKG IF CLINICALLY INDICATED Confirmed by RISA ROWLAND MD ([id number]) on 06/06/2017 3:18:27 PM Referred By: Confirmed By:RISA ROWLAND MD
[2017-06-06 15:36] LABS: URINE APPEARANCE SLCLOUDY; URINE BILIRUBIN NEGATIVE (NEGATIVE); URINE BLOOD 3+ (NEGATIVE); URINE COLOR LTYELLOW; URINE GLUCOSE (UA) NEGATIVE (NEGATIVE); URINE KETONE NEGATIVE (NEGATIVE); URINE NITRITE NEGATIVE (NEGATIVE); URINE PROTEIN NEGATIVE (NEGATIVE); URINE UROBILINOGEN NEGATIVE mg/dL (0.2-1.0)
[2017-06-06] MEDS ORDERED: PT OWN MED DRAWER 7, Y5N ONE (15:44)
[2017-06-06] MEDS: PIPERACILLIN/TAZOB 3.375 GM 3.375 GM in DEXTROSE 5%-WATER - 50 ML IVPB SCH ×2 (15:50→18:23)
[2017-06-06 16:25] LABS: URINE MUCUS RARE; URINE RBC 4; URINE WBC 19; YEAST FEW
[2017-06-06 18:42] LABS: URINE LEUK ESTERASE 2+ (NEGATIVE)
[2017-06-06] MEDS ORDERED: NOREPINEPHRINE BITARTRATE 4 MG/4 ML ML IV ONE (20:40)
[2017-06-06] MEDS ORDERED: NOREPINEPHRINE BITARTRATE 4,000 MCG in DEXTROSE 5%-WATER - 496 ML IV SCH (21:45)
[2017-06-06] MEDS: ATORVASTATIN CA 20 MG TABLET (FP) PO SCH (21:52)
[2017-06-06] MEDS: NOREPINEPHRINE BITARTRATE 8,000 MCG in DEXTROSE 5%-WATER - 492 ML IV SCH (21:54)
[2017-06-07] MEDS ORDERED: PT OWN MED DRAWER 7, Y5N ONE ×3 (02:46→16:51)
[2017-06-07] MEDS: MIDAZOLAM 100 MG in SODIUM CHLORIDE 100 ML IVPB SCH ×2 (02:47→05:39)
[2017-06-07] MEDS: PIPERACILLIN/TAZOB 3.375 GM 3.375 GM in DEXTROSE 5%-WATER - 50 ML IVPB SCH ×3 (02:47→17:03)
[2017-06-07] MEDS: dilTIAZem HCL 30 MG TABLET (FP) PEG SCH ×3 (05:39→23:19)
[2017-06-07] MEDS: LEVOTHYROXINE NA 100 MCG TABLET (FP) PEG SCH (06:24)
[2017-06-07 06:25] LABS: MCH 34.5 pg (25.7-33.7); MCHC 35.2 g/dl (32.0-36.0); MEAN CELL VOLUME 97.8 fl (80-96); MEAN PLT VOLUME 7.1 fl (7.5-11.1); PLATELET COUNT 70 K/MM3 (134-434); RDW 17.7 % (11.6-15.6)
[2017-06-07] MEDS: ALBUTEROL SO4 2.5/IPRATROPIUM 0.5 INH SOL 3 ML VIAL.NEB. NEB SCH ×4 (06:33→23:19)
[2017-06-07 06:47] LABS: WHITE BLOOD COUNT 3.2 K/mm3 (4.0-10.0)
[2017-06-07 08:06] LABS: ARTERIAL BLD GAS O2 SATURATION 99.3 % (90-98.9); ARTERIAL BLOOD GAS BASE EXCESS 0.7 meq/l (-2-2); ARTERIAL BLOOD GAS HCO3 23.9 meq/L (22-26); ARTERIAL BLOOD GAS pH 7.47 (7.35-7.45)
[2017-06-07 08:07] LABS: ALLENS TEST POSITIVE; ART PUNCT SITE RIGHT RADIAL
[2017-06-07 08:08] LABS: LPM/O2% 40; MECH. VENT. YES; PT. ON O2? YES; TYPE OF O2 VENT; VENT RATE 14; VT/PRESS 350
[2017-06-07 08:53] LABS: ANISOCYTOSIS 2+; MACROCYTOSIS 1+; MICROCYTOSIS 1+
[2017-06-07 08:55] LABS: METAMYELOCYTE 2 % (0-2); TOTAL CELLS COUNTED 100
[2017-06-07 09:19] LABS: ALBUMIN 1.8 g/dl (3.4-5.0); ANION GAP 13 (8-16); CALCIUM 7.1 mg/dL (8.5-10.1); CO2 21 mmol/L (21-32); CREATININE 0.7 mg/dL (0.55-1.02); GLUCOSE,RANDOM 72 mg/dL (74-106); MAGNESIUM 1.8 mg/dL (1.8-2.4); PHOSPHOROUS 2.9 mg/dL (2.5-4.9); SGOT/AST 20 U/L (15-37); SGPT/ALT 21 U/L (12-78)
[2017-06-07 09:21] LABS: ALK PHOS 195 U/L (45-117); BILIRUBIN,TOTAL 0.6 mg/dL (0.2-1.0); TOT PROT 4.6 g/dl (6.4-8.2)
[2017-06-07] MEDS: NYSTATIN 100,000 UNIT/GM TOPICAL CREAM 15 GM TUBE TP SCH ×2 (09:27→23:25)
[2017-06-07] MEDS: PANTOPRAZOLE SOD 40 MG SUSPENSION PACKET PEG SCH (09:47)
[2017-06-07] MEDS: CHLORHEXIDINE GLUCONATE 0.12% 15ML CUP MM SCH ×2 (09:48→23:24)
--- NOTE | 2017-06-07 10:23 | PN ---
Progress Note, Physician Chief Complaint: Intubated and sedated - Current Medication List Current Medications: Active Medications Albuterol/Ipratropium (Duoneb -) 1 amp NEB QIDR [facility] Last Admin: 06/07/17 06:33 Dose: 1 amp Atorvastatin Calcium (Lipitor -) 20 mg PO HS [facility] Last Admin: 06/06/17 21:52 Dose: 20 mg Chlorhexidine Gluconate (Peridex -) 15 ml MM BID [facility] Last Admin: 06/07/17 09:48 Dose: 15 ml Diltiazem HCl (Cardizem -) 30 mg PEG TID [facility] Last Admin: 06/07/17 05:39 Dose: 30 mg Midazolam HCl 100 mg/ Sodium (Chloride) 100 mls @ 3 mls/hr IVPB TITR [facility]; 3 MG/ HR PRN Reason: Protocol Last Titration: 06/07/17 09:48 Dose: 0 mg/hr, 0 mls/hr Piperacillin Sod/Tazobactam (Sod 3.375 gm/ Dextrose) 50 mls @ 100 mls/hr IVPB Q8H-IV [facility] PRN Reason: Protocol Last Admin: 06/07/17 09:47 Dose: 100 mls/hr Norepinephrine Bitartrate 8, (000 mcg/ Dextrose) 500 mls @ 7.2 mls/hr IV ASDIR [facility]OCELYNE; 0.03 MCG/KG/MIN PRN Reason: Protocol Last Admin: 06/06/17 21:54 Dose: 0.03 mcg/kg/min, 7.2 mls/hr Levothyroxine Sodium (Synthroid -) 100 mcg PEG DAILY@0700 [facility] Last Admin: 06/07/17 06:24 Dose: 100 mcg Nystatin (Mycostatin Cream -) 1 applic TP BID [facility] Last Admin: 06/07/17 09:27 Dose: 1 applic Pantoprazole Sodium (Protonix Packets For Oral Suspension -) 40 mg PEG DAILY [facility] Last Admin: 06/07/17 09:47 Dose: 40 mg - Objective Vital Signs: Vital Signs Temperature 38.1 C H 06/07/17 09:53 Pulse Rate 110 H 06/07/17 09:53 Respiratory Rate 18 06/07/17 09:53 Blood Pressure 106/60 06/07/17 09:53 O2 Sat by Pulse Oximetry (%) 100 06/06/17 22:00 Constitutional: Yes: No Distress, Other (sedated) Cardiovascular: Yes: Regular Rate and Rhythm. No: Gallop, Murmur, Rub Respiratory: Yes: Regular, CTA Bilaterally, Intubated, Mechanically Ventilated. No: Rales, Rhonchi, Wheezes Gastrointestinal: Yes: Normal Bowel Sounds, Soft. No: Distention, Tenderness Extremities: Yes: WNL Edema: Yes Edema: LUE: 1+, RUE: 1+, LLE: 1+, RLE: 1+ Labs: CBC, BMP 06/07/17 06:00 06/07/17 06:00 INR, PTT INR 1.02 (0.82-1.09) 06/05/17 20:30 Problem List - Problems (1) CHF (congestive heart failure) Code(s): I50.9 - HEART FAILURE, UNSPECIFIED Qualifiers: Congestive heart failure type: unspecified congestive heart failure type Congestive heart failure chronicity: chronic Qualified Code(s): I50.9 - Heart failure, unspecified (2) Hypothyroidism Code(s): E03.9 - HYPOTHYROIDISM, UNSPECIFIED Qualifiers: Hypothyroidism type: unspecified Qualified Code(s): E03.9 - Hypothyroidism , unspecified (3) HTN (hypertension) Code(s): I10 - ESSENTIAL (PRIMARY) HYPERTENSION (4) Pancytopenia Code(s): D61.818 - OTHER PANCYTOPENIA (5) UTI (urinary tract infection) Code(s): N39.0 - URINARY TRACT INFECTION, SITE NOT SPECIFIED (6) Dementia Code(s): F03.90 - UNSPECIFIED DEMENTIA WITHOUT BEHAVIORAL DISTURBANCE Qualifiers: Dementia type: unspecified type Dementia behavioral disturbance: without behavioral disturbance Qualified Code(s): F03.90 - Unspecified dementia without behavioral disturbance (7) Aspiration pneumonia Code(s): J69.0 - PNEUMONITIS DUE TO INHALATION OF FOOD AND VOMIT Qualifiers: Aspiration pneumonia type: unspecified (8) Anemia Code(s): D64.9 - ANEMIA, UNSPECIFIED Qualifiers: Anemia type: other cause Other causes of anemia: acute posthemorrhagic Qualified Code(s): D62 - Acute posthemorrhagic anemia (9) Acute respiratory failure Code(s): J96.00 - ACUTE RESPIRATORY FAILURE, UNSP W HYPOXIA OR HYPERCAPNIA (10) Septic shock Code(s): A41.9 - SEPSIS, UNSPECIFIED ORGANISM; R65.21 - SEVERE SEPSIS WITH SEPTIC SHOCK Assessment/Plan (1) Acute respiratory failure -patient again intubated, third time this admission -secondary to suspected aspiration -pulmonary following -case d/w son on last visit, will need to obtain consent for trach (2) Elevated troponin -stress induced -cardiology following but no further treatment needed (3) Seizure -resolved -no need for seizure treatment -appreciate neurology assistance (4) CHF exacerbation -fluid overloaded -nephrology following -defer further lasix to nephrology and cardiology since on pressor support (5) Pneumonia with septic shock -concern for aspiration -continue zosyn per ID -requiring pressors for support (6) UTI -treated (7) Hyponatremia -appreciate nephrology assistance -improving (8) Hypothyroid -continue levothyroxine (9) Anemia -worsened today -? is secondary to hematuria -transfuse and monitor 38 minutes spent in critical care time with this patient
--- NOTE | 2017-06-07 13:27 | PN ---
Progress Note, Physician History of Present Illness: Pt seen and eaxmined at bedside. She remains in the ICU. Pt remains intubated and is lethargic. - Current Medication List Current Medications: Active Medications Albuterol/Ipratropium (Duoneb -) 1 amp NEB QIDR [facility] Last Admin: 06/07/17 11:30 Dose: 1 amp Atorvastatin Calcium (Lipitor -) 20 mg PO HS [facility] Last Admin: 06/06/17 21:52 Dose: 20 mg Chlorhexidine Gluconate (Peridex -) 15 ml MM BID [facility] Last Admin: 06/07/17 09:48 Dose: 15 ml Diltiazem HCl (Cardizem -) 30 mg PEG TID [facility] Last Admin: 06/07/17 05:39 Dose: 30 mg Midazolam HCl 100 mg/ Sodium (Chloride) 100 mls @ 3 mls/hr IVPB TITR [facility]; 3 MG/ HR PRN Reason: Protocol Last Titration: 06/07/17 09:48 Dose: 0 mg/hr, 0 mls/hr Piperacillin Sod/Tazobactam (Sod 3.375 gm/ Dextrose) 50 mls @ 100 mls/hr IVPB Q8H-IV [facility] PRN Reason: Protocol Last Admin: 06/07/17 09:47 Dose: 100 mls/hr Norepinephrine Bitartrate 8, (000 mcg/ Dextrose) 500 mls @ 7.2 mls/hr IV ASDIR [facility]OC[facility]NE; 0.03 MCG/KG/MIN PRN Reason: Protocol Last Admin: 06/06/17 21:54 Dose: 0.03 mcg/kg/min, 7.2 mls/hr Levothyroxine Sodium (Synthroid -) 100 mcg PEG DAILY@0700 [facility] Last Admin: 06/07/17 06:24 Dose: 100 mcg Nystatin (Mycostatin Cream -) 1 applic TP BID [facility] Last Admin: 06/07/17 09:27 Dose: 1 applic Pantoprazole Sodium (Protonix Packets For Oral Suspension -) 40 mg PEG DAILY [facility] Last Admin: 06/07/17 09:47 Dose: 40 mg - Objective Vital Signs: Vital Signs Temperature 100.5 F H 06/07/17 10:00 Pulse Rate 118 H 06/07/17 12:18 Respiratory Rate 18 06/07/17 12:18 Blood Pressure 120/69 06/07/17 12:18 O2 Sat by Pulse Oximetry (%) 100 06/07/17 10:00 Constitutional: Yes: Calm Eyes: Yes: Conjunctiva Clear HENT: Yes: Atraumatic Cardiovascular: Yes: S1, S2 Respiratory: Yes: Mechanically Ventilated Gastrointestinal: Yes: Soft Genitourinary: Yes: Beck Present Musculoskeletal: Yes: Muscle Weakness Edema: Yes Edema: LUE: 1+, RUE: 1+ Neurological: Yes: Lethargy Labs: CBC, BMP 06/07/17 06:00 06/07/17 06:00 INR, PTT INR 1.02 (0.82-1.09) 06/05/17 20:30 - ....Imaging Chest X-ray: Report Reviewed Ultrasound: Report Reviewed (atrophic left kidney) Problem List - Problems (1) Hyponatremia Code(s): E87.1 - HYPO-OSMOLALITY AND HYPONATREMIA (2) Acute on chronic systolic (congestive) heart failure Code(s): I50.23 - ACUTE ON CHRONIC SYSTOLIC (CONGESTIVE) HEART FAILURE (3) Acute respiratory failure Code(s): J96.00 - ACUTE RESPIRATORY FAILURE, UNSP W HYPOXIA OR HYPERCAPNIA (4) CVA (cerebral vascular accident) Code(s): I63.9 - CEREBRAL INFARCTION, UNSPECIFIED (5) Pancytopenia Code(s): D61.818 - OTHER PANCYTOPENIA (6) CHF (congestive heart failure) Code(s): I50.9 - HEART FAILURE, UNSPECIFIED Qualifiers: Congestive heart failure type: unspecified congestive heart failure type Congestive heart failure chronicity: chronic Qualified Code(s): I50.9 - Heart failure, unspecified (7) HTN (hypertension) Code(s): I10 - ESSENTIAL (PRIMARY) HYPERTENSION Assessment/Plan Current Medications Generic Name Dose Route Start Last Admin Trade Name Freq PRN Reason Stop Dose Admin Albuterol/Ipratropium 1 amp 06/05/17 18:30 06/07/17 11:30 Duoneb - NEB 1 amp QIDR [facility] Administration Atorvastatin Calcium 20 mg 05/31/17 22:00 06/06/17 21:52 Lipitor - PO 20 mg HS [facility]NE Administration Chlorhexidine Gluconate 15 ml 06/07/17 10:00 06/07/17 09:48 Peridex - MM 15 ml BID [facility] Administration Diltiazem HCl 30 mg 05/31/17 22:00 06/07/17 05:39 Cardizem - PEG 30 mg TID [facility] Administration Midazolam HCl 100 mg/ Sodium 100 mls @ 3 mls/hr 06/06/17 04:00 06/07/17 09:48 Chloride IVPB 0 mg/hr TITR [facility]OC[facility] 0 mls/hr Protocol Titration 3 MG/HR Piperacillin Sod/Tazobactam 50 mls @ 100 mls/hr 06/06/17 14:00 06/07/17 09:47 Sod 3.375 gm/ Dextrose IVPB 100 mls/hr Q8H-IV [facility] Administration Protocol Norepinephrine Bitartrate 8, 500 mls @ 7.2 mls/hr 06/06/17 22:00 06/06/17 21: 54 000 mcg/ Dextrose IV 0.03 mcg/kg/min ASDIR [facility]OC[facility]NE 7.2 mls/hr Protocol Administration 0.03 MCG/KG/MIN Levothyroxine Sodium 100 mcg 06/02/17 14:15 06/07/17 06:24 Synthroid - PEG 100 mcg DAILY@0700 [facility] Administration Nystatin 1 applic 05/31/17 22:00 06/07/17 09:27 Mycostatin Cream - TP 1 applic BID [facility] Administration Pantoprazole Sodium 40 mg 06/03/17 10:00 06/07/17 09:47 Protonix Packets For Oral Suspension - PEG 40 mg DAILY [facility] Administration Impression 1. hyponatremia 2. pancytopenia 3. resp failure requiring intubation 4. CHF 5. hematuria 6. HTN 7. UTI 8. dementia 9. volume overload 10. hypothyroidism 11. seizure 12. PNA Plan - renal ultrasound reviewed - sodium remains low - will check cortisol and tsh - check urine lytes and sodium - pt remains overloaded - cxr is worse - repeat labs in am - consider lasix if bp permits, increasing free water clearance will help with sodium - cont pressors to a map of [address] [place]
--- NOTE | 2017-06-07 13:40 | PN ---
Progress Note, Physician History of Present Illness: This is a 82 yo woman PMH: dementia, hypothyroid, HTN, active tobacco, CAD s/p sent, CHF presenting to ICU after [facility] for hypoxic respiratory failure, SVT (HR 180s) and shock. Briefly, patient initially presented for frequent falls and altered mental status with overall physical and cognitive decline over the last 6 months prior to admission. CT head: w/ central atrophy and mild microvascular ischemic gliosis. Labs significant for hypothyroid, leukopenia and pyuria, she was started on ceftriaxone. Neurology was consulted. Endocrine consulted. Mental status had some improvement while on the floor. Speech and swallow eval done c/ f aspiration. ABX were switch to zosyn given increased secretions and c/f pneumonia. Plans made for potential PEG placement. Patient continued to have waxing and waning mental status. Patient had notable right facial droop and NCHCT done w/o acute pathology. She completed a course of ABX. GI was consulted for c/f GIB. Heme also consulted given anemia and leukopenia and w/u sent: flow- -0.2% blasts, clonal B cells questionable nonspecific immunophenotype. On day of ICU admission patient had witnessed aspiration event. DRILL [facility]NER was called in PM for hypoxia and tachycardia. Patient transferred to ICU for hypoxic respiratory failure. Patient intubated. ABG 7.3/54/242 (ACVC: 20/400/100 +5). Patient given adenosine for SVT w/ underlying sinus rhythm. Patient continued to have RVR and was given lopressor 5mg x1 w/ HR improved to 120s. Family called but were unavailable. - History Source - Current Medication List Current Medications: Active Medications Albuterol/Ipratropium (Duoneb -) 1 amp NEB QIDR [facility] Last Admin: 06/07/17 11:30 Dose: 1 amp Atorvastatin Calcium (Lipitor -) 20 mg PO HS [facility] Last Admin: 06/06/17 21:52 Dose: 20 mg Chlorhexidine Gluconate (Peridex -) 15 ml MM BID [facility] Last Admin: 06/07/17 09:48 Dose: 15 ml Diltiazem HCl (Cardizem -) 30 mg PEG TID [facility] Last Admin: 06/07/17 05:39 Dose: 30 mg Midazolam HCl 100 mg/ Sodium (Chloride) 100 mls @ 3 mls/hr IVPB TITR JOCELYNE; 3 MG/ HR PRN Reason: Protocol Last Titration: 06/07/17 09:48 Dose: 0 mg/hr, 0 mls/hr Piperacillin Sod/Tazobactam (Sod 3.375 gm/ Dextrose) 50 mls @ 100 mls/hr IVPB Q8H-IV JOCELYNE PRN Reason: Protocol Last Admin: 06/07/17 09:47 Dose: 100 mls/hr Norepinephrine Bitartrate 8, (000 mcg/ Dextrose) 500 mls @ 7.2 mls/hr IV ASDIR JOCELYNE; 0.03 MCG/KG/MIN PRN Reason: Protocol Last Admin: 06/06/17 21:54 Dose: 0.03 mcg/kg/min, 7.2 mls/hr Levothyroxine Sodium (Synthroid -) 100 mcg PEG DAILY@0700 [facility] Last Admin: 06/07/17 06:24 Dose: 100 mcg Nystatin (Mycostatin Cream -) 1 applic TP BID [facility] Last Admin: 06/07/17 09:27 Dose: 1 applic Pantoprazole Sodium (Protonix Packets For Oral Suspension -) 40 mg PEG DAILY [facility] Last Admin: 06/07/17 09:47 Dose: 40 mg - Objective Vital Signs: Vital Signs Temperature 100.5 F H 06/07/17 10:00 Pulse Rate 118 H 06/07/17 12:18 Respiratory Rate 18 06/07/17 12:18 Blood Pressure 120/69 06/07/17 12:18 O2 Sat by Pulse Oximetry (%) 100 06/07/17 10:00 Eyes: Yes: WNL, Conjunctiva Clear, EOM Intact HENT: Yes: WNL, Atraumatic, Normocephalic Neck: Yes: WNL, Supple, Trachea Midline Cardiovascular: Yes: WNL, Regular Rate and Rhythm Respiratory: Yes: Intubated, Mechanically Ventilated Gastrointestinal: Yes: WNL, Normal Bowel Sounds Genitourinary: Yes: WNL Musculoskeletal: Yes: WNL Extremities: Yes: WNL Edema: No Integumentary: Yes: WNL Neurological: Yes: WNL, Alert, Oriented ...Motor Strength: WNL Psychiatric: Yes: WNL Labs: CBC, BMP 06/07/17 06:00 06/07/17 06:00 INR, PTT INR 1.02 (0.82-1.09) 06/05/17 20:30 Problem List - Problems (1) CHF (congestive heart failure) Code(s): I50.9 - HEART FAILURE, UNSPECIFIED Qualifiers: Congestive heart failure type: unspecified congestive heart failure type Congestive heart failure chronicity: chronic Qualified Code(s): I50.9 - Heart failure, unspecified (2) Smoking addiction Code(s): F17.200 - NICOTINE DEPENDENCE, UNSPECIFIED, UNCOMPLICATED (3) Smoking Code(s): F17.200 - NICOTINE DEPENDENCE, UNSPECIFIED, UNCOMPLICATED (4) Aortic stenosis Code(s): I35.0 - NONRHEUMATIC AORTIC (VALVE) STENOSIS (5) Osteoporosis Code(s): M81.0 - AGE-RELATED OSTEOPOROSIS W/O CURRENT PATHOLOGICAL FRACTURE (6) Hypothyroidism Code(s): E03.9 - HYPOTHYROIDISM, UNSPECIFIED Qualifiers: Hypothyroidism type: unspecified Qualified Code(s): E03.9 - Hypothyroidism , unspecified (7) HTN (hypertension) Code(s): I10 - ESSENTIAL (PRIMARY) HYPERTENSION (8) Macrocytosis Code(s): D75.89 - OTHER SPECIFIED DISEASES OF BLOOD AND BLOOD-FORMING ORGANS (9) Paroxysmal SVT (supraventricular tachycardia) Code(s): I47.1 - SUPRAVENTRICULAR TACHYCARDIA (10) Pancytopenia Code(s): D61.818 - OTHER PANCYTOPENIA (11) Altered mental status, unspecified Code(s): R41.82 - ALTERED MENTAL STATUS, UNSPECIFIED (12) UTI (urinary tract infection) Code(s): N39.0 - URINARY TRACT INFECTION, SITE NOT SPECIFIED (13) Dementia Code(s): F03.90 - UNSPECIFIED DEMENTIA WITHOUT BEHAVIORAL DISTURBANCE Qualifiers: Dementia type: unspecified type Dementia behavioral disturbance: without behavioral disturbance Qualified Code(s): F03.90 - Unspecified dementia without behavioral disturbance (14) Fever Code(s): R50.9 - FEVER, UNSPECIFIED (15) Aspiration pneumonia Code(s): J69.0 - PNEUMONITIS DUE TO INHALATION OF FOOD AND VOMIT Qualifiers: Aspiration pneumonia type: unspecified (16) Anemia Code(s): D64.9 - ANEMIA, UNSPECIFIED Qualifiers: Anemia type: other cause Other causes of anemia: acute posthemorrhagic Qualified Code(s): D62 - Acute posthemorrhagic anemia (17) Acute respiratory failure with hypoxia and hypercapnia Code(s): J96.01 - ACUTE RESPIRATORY FAILURE WITH HYPOXIA; J96.02 - ACUTE RESPIRATORY FAILURE WITH HYPERCAPNIA (18) Shock Code(s): R57.9 - SHOCK, UNSPECIFIED Assessment/Plan Assessment/Plan Recurrent Acute Hypoxic Respiratory Failure: PNA vs CHF? CVA Szs UTI LV Systolic Dysfunction Hyponatremia Dementia Pancytopenia REC: -Case d/w PMD: unclear if this is CHF as CXR shows unilateral findings. -Will obtain CT scan: evaluate for PNA, r/o PE. -Cont abx as per PMD, vent support -hold on further diuresis for now. cc time 36 min
--- NOTE | 2017-06-07 14:50 | PN ---
Teaching Attending Note Name of Resident: Bobo Alba ATTENDING PHYSICIAN STATEMENT I saw and evaluated the patient. I reviewed the resident's note and discussed the case with the resident. I agree with the resident's findings and plan as documented. SUBJECTIVE: Pt seen and examined in the ICU. Remains intubated on volume assist control. Started on levophed gtt overnight. Poorly responsive off sedation. OBJECTIVE: Last Vital Signs Temp Pulse Resp BP Pulse Ox 100 F H 98 H 22 115/58 100 06/07/17 13:48 06/07/17 13:48 06/07/17 14:06 06/07/17 13:48 06/07/17 10:00 Intake & Output 06/04/17 06/05/17 06/06/17 06/07/17 23:59 23:59 23:59 23:59 Intake Total 3007 373 7194 1406 Output Total 3250 1200 1700 200 Balance -1580 -240 -114 1206 Weight 142 lb 12.8 oz 133 lb 141 lb 1.6 oz 144 lb Gen: intubated, poorly responsive Heart: RRR Lung: scattered rhonchi Abd: soft, nontender, +G tube Ext: + edema CBC, BMP 06/07/17 06:00 06/07/17 06:00 Active Medications Albuterol/Ipratropium (Duoneb -) 1 amp NEB QIDR [facility] Last Admin: 06/07/17 11:30 Dose: 1 amp Atorvastatin Calcium (Lipitor -) 20 mg PO HS [facility] Last Admin: 06/06/17 21:52 Dose: 20 mg Chlorhexidine Gluconate (Peridex -) 15 ml MM BID [facility] Last Admin: 06/07/17 09:48 Dose: 15 ml Diltiazem HCl (Cardizem -) 30 mg PEG TID [facility] Last Admin: 06/07/17 05:39 Dose: 30 mg Midazolam HCl 100 mg/ Sodium (Chloride) 100 mls @ 3 mls/hr IVPB TITR JOCELYNE; 3 MG/ HR PRN Reason: Protocol Last Titration: 06/07/17 09:48 Dose: 0 mg/hr, 0 mls/hr Piperacillin Sod/Tazobactam (Sod 3.375 gm/ Dextrose) 50 mls @ 100 mls/hr IVPB Q8H-IV JOCELYNE PRN Reason: Protocol Last Admin: 06/07/17 09:47 Dose: 100 mls/hr Norepinephrine Bitartrate 8, (000 mcg/ Dextrose) 500 mls @ 7.2 mls/hr IV ASDIR JOCELYNE; 0.03 MCG/KG/MIN PRN Reason: Protocol Last Admin: 06/06/17 21:54 Dose: 0.03 mcg/kg/min, 7.2 mls/hr Levothyroxine Sodium (Synthroid -) 100 mcg PEG DAILY@0700 [facility] Last Admin: 06/07/17 06:24 Dose: 100 mcg Nystatin (Mycostatin Cream -) 1 applic TP BID [facility] Last Admin: 06/07/17 09:27 Dose: 1 applic Pantoprazole Sodium (Protonix Packets For Oral Suspension -) 40 mg PEG DAILY [facility] Last Admin: 06/07/17 09:47 Dose: 40 mg ASSESSMENT AND PLAN: Acute Hypoxic Respiratory Failure Aspiration Pneumonia vs Pneumonitis Acute CVA Seizure from Above UTI Pneumonia +Troponins likely from [place] Ischemia LV Systolic Dysfunction Hyponatremia Dementia - antibiotics per ID - enteral feeds - taper levophed gtt to maintain MAP>65 - monitor lytes - transfuse PRBC - monitor H/H - taper O2 to keep SpO2 >90% - continue volume assist control - it is clear that pt is unable to protect her airway as this is her 3rd intubation this admission, will need tracheostomy pending family wishes - DVT/GI prophylaxis - continue ICU monitoring critical care time spent in reviewing chart, evaluating patient and formulating plan 35 min
--- NOTE | 2017-06-07 15:36 | PN ---
Physical Exam: SUBJECTIVE: Patient seen and examined. OBJECTIVE: Vital Signs Period Temp Pulse Resp BP Sys/Admon Pulse Ox Last 24 Hr 97.1 F-100.5 F 98-132 14-25 91-129/47-71 98-100 GENERAL: sedated intubated LUNGS: Breath sounds equal, scattered ronchi, no accessory muscle use. HEART: s1s2. ABDOMEN: Soft, nontender, nondistended, normoactive bowel sounds, no guarding, no rebound, EXTREMITIES: edema ++ PSYCH: Normal mood, normal affect. SKIN: Warm, dry, Laboratory Results - last 24 hr 06/06/17 06/07/17 06/07/17 14:00 06:00 06:00 WBC 3.2 L RBC 1.73 L D Hgb 6.0 L* D Hct 16.9 L D MCV 97.8 H MCH 34.5 H MCHC 35.2 RDW 17.7 H Plt Count 70 L MPV 7.1 L D Total Counted 100 Neutrophils % No Result Required. Neutrophils % (Manual) 68.0 Band Neutrophils % 6.0 Lymphocytes % No Result Required. Lymphocytes % (Manual) 17.0 D Eosinophils % (Manual) 7.0 H D Metamyelocytes 2 D Platelet Comment No Result Required. Anisocytosis 2+ Microcytosis 1+ Macrocytosis 1+ Puncture Site ABG pH ABG pCO2 at Pt Temp ABG pO2 at Pt Temp ABG HCO3 ABG O2 Sat (Measured) ABG O2 Content ABG Base Excess Demario Test O2 Delivery Device Oxygen Flow Rate Vent Mode Vent Rate Mechanical Rate PEEP Pressure Support Vent Sodium 127 L Potassium 4.0 Chloride 93 L Carbon Dioxide 21 D Anion Gap 13 BUN 13 Creatinine 0.7 Creat Clearance w eGFR > 60 Random Glucose 72 L Calcium 7.1 L Phosphorus 2.9 Magnesium 1.8 Total Bilirubin 0.6 D AST 20 ALT 21 Alkaline Phosphatase 195 H B-Natriuretic Peptide 8650 H Total Protein 4.6 L Albumin 1.8 L D Urine Color Ltyellow Urine Appearance Slcloudy Urine pH 6.0 Ur Specific [place] 1.006 Urine Protein Negative Urine Glucose (UA) Negative Urine Ketones Negative Urine Blood 3+ H Urine Nitrite Negative Urine Bilirubin Negative Urine Urobilinogen Negative Ur Leukocyte Esterase 2+ H Urine WBC (Auto) 19 Urine RBC (Auto) 4 Urine RBC No Result Required. Ur Epithelial Cells Rare Urine Mucus Rare Urine Yeast Few Blood Type Antibody Screen Crossmatch 06/07/17 06/07/17 07:20 07:35 WBC RBC Hgb Hct MCV MCH MCHC RDW Plt Count MPV Total Counted Neutrophils % Neutrophils % (Manual) Band Neutrophils % Lymphocytes % Lymphocytes % (Manual) Eosinophils % (Manual) Metamyelocytes Platelet Comment Anisocytosis Microcytosis Macrocytosis Puncture Site Right radial ABG pH 7.47 H ABG pCO2 at Pt Temp 33.4 L ABG pO2 at Pt Temp 108.0 H D ABG HCO3 23.9 ABG O2 Sat (Measured) 99.3 H ABG O2 Content 8.7 L* ABG Base Excess 0.7 Demario Test Positive O2 Delivery Device Vent Oxygen Flow Rate 40 Vent Mode A/c Vent Rate 14 Mechanical Rate Yes PEEP 5.0 Pressure Support Vent 350 Sodium Potassium Chloride Carbon Dioxide Anion Gap BUN Creatinine Creat Clearance w eGFR Random Glucose Calcium Phosphorus Magnesium Total Bilirubin AST ALT Alkaline Phosphatase B-Natriuretic Peptide Total Protein Albumin Urine Color Urine Appearance Urine pH Ur Specific [place] Urine Protein Urine Glucose (UA) Urine Ketones Urine Blood Urine Nitrite Urine Bilirubin Urine Urobilinogen Ur Leukocyte Esterase Urine WBC (Auto) Urine RBC (Auto) Urine RBC Ur Epithelial Cells Urine Mucus Urine Yeast Blood Type A NEGATIVE Antibody Screen Negative Crossmatch See Detail Active Medications Generic Name Dose Route Start Last Admin Trade Name Freq PRN Reason Stop Dose Admin Albuterol/Ipratropium 1 amp 06/05/17 18:30 06/07/17 11:30 Duoneb - NEB 1 amp QIDR JOCELYNE Administration Atorvastatin Calcium 20 mg 05/31/17 22:00 06/06/17 21:52 Lipitor - PO 20 mg HS JOCELYNE Administration Chlorhexidine Gluconate 15 ml 06/07/17 10:00 06/07/17 09:48 Peridex - MM 15 ml BID JOCELYNE Administration Diltiazem HCl 30 mg 05/31/17 22:00 06/07/17 05:39 Cardizem - PEG 30 mg TID JOCELYNE Administration Midazolam HCl 100 mg/ Sodium 100 mls @ 3 mls/hr 06/06/17 04:00 06/07/17 09:48 Chloride IVPB 0 mg/hr TITR JOCELYNE 0 mls/hr Protocol Titration 3 MG/HR Piperacillin Sod/Tazobactam 50 mls @ 100 mls/hr 06/06/17 14:00 06/07/17 09:47 Sod 3.375 gm/ Dextrose IVPB 100 mls/hr Q8H-IV JOCELYNE Administration Protocol Norepinephrine Bitartrate 8, 500 mls @ 7.2 mls/hr 06/06/17 22:00 06/06/17 21: 54 000 mcg/ Dextrose IV 0.03 mcg/kg/min ASDIR JOCELYNE 7.2 mls/hr Protocol Administration 0.03 MCG/KG/MIN Levothyroxine Sodium 100 mcg 06/02/17 14:15 06/07/17 06:24 Synthroid - PEG 100 mcg DAILY@0700 JOCELYNE Administration Nystatin 1 applic 05/31/17 22:00 06/07/17 09:27 Mycostatin Cream - TP 1 applic BID JOCELYNE Administration Pantoprazole Sodium 40 mg 06/03/17 10:00 06/07/17 09:47 Protonix Packets For Oral Suspension - PEG 40 mg DAILY JOCELYNE Administration ASSESSMENT/PLAN: 82 year old female with PMH CHF, hypothyroid, CAD s/p stent, presented to the ER with frequent falls and AMS Plan: 1. Acute Hypoxic Respiratory failure - Due to sepsis and PNA - sedated on ventilator support. - tried weaning, taken on cpap - patient is unable to maintain her airway as patient has multiple intubations, will consider tracheostomy, 2. Seizure - No reported seizure like activity 3. Sepsis due to PNA and VRE UTI - on zosyn started for apspiration pneumonia - monitor vitals, - monitor intake and output - on norepi 4. Elevated Troponins - Down trended - Likely demand ischemia due to sepsis 5. Anemia - Hgb decreased to 6, one unit blood transfsion, if repeat hb is less than 7 transfuse. 6. Hypothyroid - Increased synthroid to 100mcg 7. Hypomagnesemia - Replete 1 gm IV today 8. Hypophosphatemia - Resolved - Stop neutraphos 9. Pseudohypocalcemia - Corrected ca 9.3 10. DVT ppx - SCD - Hold pharamcologic anticoagulation due to fall in hb 11. Dementia 12. HTN - Cardizem tid start tub feed. Visit type - Emergency Visit Emergency Visit: Yes ED Registration Date: 04/01/17 Care time: The patient presented to the Emergency Department on the above date and was hospitalized for further evaluation of their emergent condition. - New Patient This patient is new to me today: No - Critical Care Critical Care patient: Yes Total Critical Care Time (in minutes): 45 Critical Care Statement: The care of this patient involved high complexity decision making to prevent further life threatening deterioration of the patient 's condition and/or to evaluate & treat vital organ system(s) failure or risk of failure.
--- NOTE | 2017-06-07 17:03 | PN ---
Progress Note, Physician History of Present Illness: continues to be sedated and intubated plan is for trach - Current Medication List Current Medications: Active Medications Albuterol/Ipratropium (Duoneb -) 1 amp NEB QIDR [facility] Last Admin: 06/07/17 11:30 Dose: 1 amp Atorvastatin Calcium (Lipitor -) 20 mg PO HS [facility] Last Admin: 06/06/17 21:52 Dose: 20 mg Chlorhexidine Gluconate (Peridex -) 15 ml MM BID [facility] Last Admin: 06/07/17 09:48 Dose: 15 ml Diltiazem HCl (Cardizem -) 30 mg PEG TID [facility] Last Admin: 06/07/17 16:14 Dose: Not Given Midazolam HCl 100 mg/ Sodium (Chloride) 100 mls @ 3 mls/hr IVPB TITR JOCELYNE; 3 MG/ HR PRN Reason: Protocol Last Titration: 06/07/17 09:48 Dose: 0 mg/hr, 0 mls/hr Piperacillin Sod/Tazobactam (Sod 3.375 gm/ Dextrose) 50 mls @ 100 mls/hr IVPB Q8H-IV JOCELYNE PRN Reason: Protocol Last Admin: 06/07/17 09:47 Dose: 100 mls/hr Norepinephrine Bitartrate 8, (000 mcg/ Dextrose) 500 mls @ 7.2 mls/hr IV ASDIR JOCELYNE; 0.03 MCG/KG/MIN PRN Reason: Protocol Last Admin: 06/06/17 21:54 Dose: 0.03 mcg/kg/min, 7.2 mls/hr Levothyroxine Sodium (Synthroid -) 100 mcg PEG DAILY@0700 [facility] Last Admin: 06/07/17 06:24 Dose: 100 mcg Nystatin (Mycostatin Cream -) 1 applic TP BID [facility] Last Admin: 06/07/17 09:27 Dose: 1 applic Pantoprazole Sodium (Protonix Packets For Oral Suspension -) 40 mg PEG DAILY [facility] Last Admin: 06/07/17 09:47 Dose: 40 mg - Objective Vital Signs: Vital Signs Temperature 100 F H 06/07/17 14:00 Pulse Rate 98 H 06/07/17 14:00 Respiratory Rate 22 06/07/17 14:06 Blood Pressure 115/58 06/07/17 14:00 O2 Sat by Pulse Oximetry (%) 100 06/07/17 10:00 Constitutional: Yes: Other Cardiovascular: Yes: S1, S2 Respiratory: Yes: Intubated, Mechanically Ventilated Gastrointestinal: Yes: Normal Bowel Sounds, Soft Musculoskeletal: Yes: WNL Extremities: Yes: WNL Neurological: Yes: Other Psychiatric: Yes: Other Labs: CBC, BMP 06/07/17 06:00 06/07/17 06:00 INR, PTT INR 1.02 (0.82-1.09) 06/05/17 20:30 - ....Imaging Chest X-ray: Report Reviewed, Image Reviewed Assessment/Plan Problem List - Problems (1) UTI (urinary tract infection) Code(s): N39.0 - URINARY TRACT INFECTION, SITE NOT SPECIFIED (2) Dementia Code(s): F03.90 - UNSPECIFIED DEMENTIA WITHOUT BEHAVIORAL DISTURBANCE (3) Pancytopenia Code(s): D61.818 - OTHER PANCYTOPENIA (4) CHF (congestive heart failure) Code(s): I50.9 - HEART FAILURE, UNSPECIFIED Qualifiers: Congestive heart failure type: unspecified congestive heart failure type Congestive heart failure chronicity: chronic Qualified Code(s): I50.9 - Heart failure, unspecified (5) HTN (hypertension) Code(s): I10 - ESSENTIAL (PRIMARY) HYPERTENSION (6) Hypothyroidism Code(s): E03.9 - HYPOTHYROIDISM, UNSPECIFIED Aspiration pneumonia Code(s): J69.0 - PNEUMONITIS DUE TO INHALATION OF FOOD AND VOMIT lactic acidosis patient reintubated plan conitncheng scottsykwabena plan is for trach continue nutrition monitor rest as per icu and primary team cc time 40 min
[2017-06-07 19:00] LABS: MCH 33.9 pg (25.7-33.7); MCHC 35.8 g/dl (32.0-36.0); MEAN CELL VOLUME 94.6 fl (80-96); MEAN PLT VOLUME 6.8 fl (7.5-11.1); PLATELET COUNT 59 K/MM3 (134-434); RDW 16.2 % (11.6-15.6); WHITE BLOOD COUNT 2.7 K/mm3 (4.0-10.0)
--- NOTE | 2017-06-07 19:08 | PN ---
Progress Note (short form) - Note Progress Note: Notified by nurse that pt's Hb was 6.7 at 7PM. Ordered 1 unit of PRBCs stat. Will f/u CBC Reshma Recio MD PGY-1 CC team
[2017-06-07 21:54] LABS: METAMYELOCYTE 1 % (0-2); TOTAL CELLS COUNTED 100
[2017-06-07 21:55] LABS: REACTIVE LYMPHOCYTES 1 % (0-80)
[2017-06-07 21:56] LABS: PLATELET ESTIMATE MOD DECREASED
[2017-06-07] MEDS: NOREPINEPHRINE BITARTRATE 8,000 MCG in DEXTROSE 5%-WATER - 492 ML IV SCH (23:20)
[2017-06-07] MEDS: ATORVASTATIN CA 20 MG TABLET (FP) PO SCH (23:24)
[2017-06-08] MEDS ORDERED: PT OWN MED DRAWER 7, Y5N ONE ×4 (01:11→16:57)
[2017-06-08] MEDS: PIPERACILLIN/TAZOB 3.375 GM 3.375 GM in DEXTROSE 5%-WATER - 50 ML IVPB SCH ×3 (01:14→17:07)
[2017-06-08 01:53] LABS: BASOPHIL 0.2 % (0-2.0); MCH 32.8 pg (25.7-33.7); MCHC 34.9 g/dl (32.0-36.0); MEAN CELL VOLUME 93.8 fl (80-96); MEAN PLT VOLUME 6.5 fl (7.5-11.1); PLATELET COUNT 48 K/MM3 (134-434); RDW 15.5 % (11.6-15.6); WHITE BLOOD COUNT 2.7 K/mm3 (4.0-10.0)
[2017-06-08] MEDS: dilTIAZem HCL 30 MG TABLET (FP) PEG SCH ×3 (06:00→22:05)
[2017-06-08] MEDS: LEVOTHYROXINE NA 100 MCG TABLET (FP) PEG SCH (06:38)
[2017-06-08 06:52] LABS: ALBUMIN 1.6 g/dl (3.4-5.0); ANION GAP 8 (8-16); BILIRUBIN,TOTAL 0.9 mg/dL (0.2-1.0); CALCIUM 7.3 mg/dL (8.5-10.1); CO2 25 mmol/L (21-32); CREATININE 0.7 mg/dL (0.55-1.02); GLUCOSE,RANDOM 98 mg/dL (74-106); MAGNESIUM 1.8 mg/dL (1.8-2.4); PHOSPHOROUS 2.6 mg/dL (2.5-4.9); SGOT/AST 17 U/L (15-37); SGPT/ALT 18 U/L (12-78)
[2017-06-08] MEDS: ALBUTEROL SO4 2.5/IPRATROPIUM 0.5 INH SOL 3 ML VIAL.NEB. NEB SCH ×4 (06:55→23:03)
[2017-06-08 07:02] LABS: ALK PHOS 219 U/L (45-117); TOT PROT 4.3 g/dl (6.4-8.2)
[2017-06-08] MEDS: MIDAZOLAM 100 MG in SODIUM CHLORIDE 100 ML IVPB SCH (10:22)
[2017-06-08] MEDS: NYSTATIN 100,000 UNIT/GM TOPICAL CREAM 15 GM TUBE TP SCH ×2 (10:29→22:05)
[2017-06-08] MEDS: PANTOPRAZOLE SOD 40 MG SUSPENSION PACKET PEG SCH (10:29)
--- NOTE | 2017-06-08 10:29 | PN ---
Progress Note, Physician Chief Complaint: Intubated and sedated - Current Medication List Current Medications: Active Medications Albuterol/Ipratropium (Duoneb -) 1 amp NEB QIDR [facility] Last Admin: 06/08/17 06:55 Dose: 1 amp Atorvastatin Calcium (Lipitor -) 20 mg PO HS [facility] Last Admin: 06/07/17 23:24 Dose: 20 mg Chlorhexidine Gluconate (Peridex -) 15 ml MM BID [facility] Last Admin: 06/07/17 23:24 Dose: 15 ml Diltiazem HCl (Cardizem -) 30 mg PEG TID [facility] Last Admin: 06/07/17 23:19 Dose: Not Given Midazolam HCl 100 mg/ Sodium (Chloride) 100 mls @ 3 mls/hr IVPB TITR JOCELYNE; 3 MG/ HR PRN Reason: Protocol Last Titration: 06/07/17 09:48 Dose: 0 mg/hr, 0 mls/hr Piperacillin Sod/Tazobactam (Sod 3.375 gm/ Dextrose) 50 mls @ 100 mls/hr IVPB Q8H-IV JOCELYNE PRN Reason: Protocol Last Admin: 06/08/17 01:14 Dose: 100 mls/hr Norepinephrine Bitartrate 8, (000 mcg/ Dextrose) 500 mls @ 7.2 mls/hr IV ASDIR JOCELYNE; 0.03 MCG/KG/MIN PRN Reason: Protocol Last Admin: 06/07/17 23:20 Dose: Not Given Levothyroxine Sodium (Synthroid -) 100 mcg PEG DAILY@0700 [facility] Last Admin: 06/08/17 06:38 Dose: 100 mcg Nystatin (Mycostatin Cream -) 1 applic TP BID [facility] Last Admin: 06/07/17 23:25 Dose: 1 applic Pantoprazole Sodium (Protonix Packets For Oral Suspension -) 40 mg PEG DAILY [facility] Last Admin: 06/07/17 09:47 Dose: 40 mg - Objective Vital Signs: Vital Signs Temperature 37.1 C 06/08/17 06:00 Pulse Rate 117 H 06/08/17 08:00 Respiratory Rate 19 06/08/17 09:00 Blood Pressure 107/51 06/08/17 08:00 O2 Sat by Pulse Oximetry (%) 100 06/08/17 09:45 Constitutional: Yes: No Distress, Other (sedated) Cardiovascular: Yes: Regular Rate and Rhythm. No: Gallop, Murmur, Rub Respiratory: Yes: Regular, Intubated, Mechanically Ventilated, Rhonchi. No: CTA Bilaterally, Rales, Wheezes Gastrointestinal: Yes: Normal Bowel Sounds, Soft. No: Distention, Tenderness Extremities: Yes: WNL Edema: Yes Edema: LUE: 1+, RUE: 1+, LLE: 1+, RLE: 1+ Labs: CBC, BMP 06/08/17 01:30 06/08/17 06:15 INR, PTT INR 1.02 (0.82-1.09) 06/05/17 20:30 Problem List - Problems (1) CHF (congestive heart failure) Code(s): I50.9 - HEART FAILURE, UNSPECIFIED Qualifiers: Congestive heart failure type: unspecified congestive heart failure type Congestive heart failure chronicity: chronic Qualified Code(s): I50.9 - Heart failure, unspecified (2) Hypothyroidism Code(s): E03.9 - HYPOTHYROIDISM, UNSPECIFIED Qualifiers: Hypothyroidism type: unspecified Qualified Code(s): E03.9 - Hypothyroidism , unspecified (3) HTN (hypertension) Code(s): I10 - ESSENTIAL (PRIMARY) HYPERTENSION (4) Pancytopenia Code(s): D61.818 - OTHER PANCYTOPENIA (5) UTI (urinary tract infection) Code(s): N39.0 - URINARY TRACT INFECTION, SITE NOT SPECIFIED (6) Dementia Code(s): F03.90 - UNSPECIFIED DEMENTIA WITHOUT BEHAVIORAL DISTURBANCE Qualifiers: Dementia type: unspecified type Dementia behavioral disturbance: without behavioral disturbance Qualified Code(s): F03.90 - Unspecified dementia without behavioral disturbance (7) Aspiration pneumonia Code(s): J69.0 - PNEUMONITIS DUE TO INHALATION OF FOOD AND VOMIT Qualifiers: Aspiration pneumonia type: unspecified (8) Anemia Code(s): D64.9 - ANEMIA, UNSPECIFIED Qualifiers: Anemia type: other cause Other causes of anemia: acute posthemorrhagic Qualified Code(s): D62 - Acute posthemorrhagic anemia (9) Acute respiratory failure Code(s): J96.00 - ACUTE RESPIRATORY FAILURE, UNSP W HYPOXIA OR HYPERCAPNIA (10) Septic shock Code(s): A41.9 - SEPSIS, UNSPECIFIED ORGANISM; R65.21 - SEVERE SEPSIS WITH SEPTIC SHOCK Assessment/Plan (1) Acute respiratory failure -patient again intubated, third time this admission -secondary to suspected aspiration -pulmonary following -plan for trach when stable from pulmonary standpoint (2) Elevated troponin -stress induced -cardiology following but no further treatment needed (3) Seizure -resolved -no need for seizure treatment -appreciate neurology assistance (4) CHF exacerbation -fluid overloaded -nephrology following -deferring lasix currently, recently weaned off of pressors and pressure is low normal (5) Pneumonia with septic shock -concern for aspiration -continue zosyn per ID -now off pressors (6) UTI -treated (7) Hyponatremia -appreciate nephrology assistance -improving (8) Hypothyroid -continue levothyroxine (9) Anemia -s/p transfusion -recheck this am 35 minutes spent in critical care time with this patient
[2017-06-08] MEDS: CHLORHEXIDINE GLUCONATE 0.12% 15ML CUP MM SCH ×2 (10:30→22:06)
--- NOTE | 2017-06-08 12:01 | PN ---
Progress Note, Physician History of Present Illness: This is a 82 yo woman PMH: dementia, hypothyroid, HTN, active tobacco, CAD s/p sent, CHF presenting to ICU after [employer] for hypoxic respiratory failure, SVT (HR 180s) and shock. Briefly, patient initially presented for frequent falls and altered mental status with overall physical and cognitive decline over the last 6 months prior to admission. CT head: w/ central atrophy and mild microvascular ischemic gliosis. Labs significant for hypothyroid, leukopenia and pyuria, she was started on ceftriaxone. Neurology was consulted. Endocrine consulted. Mental status had some improvement while on the floor. Speech and swallow eval done c/ f aspiration. ABX were switch to zosyn given increased secretions and c/f pneumonia. Plans made for potential PEG placement. Patient continued to have waxing and waning mental status. Patient had notable right facial droop and NCHCT done w/o acute pathology. She completed a course of ABX. GI was consulted for c/f GIB. Heme also consulted given anemia and leukopenia and w/u sent: flow- -0.2% blasts, clonal B cells questionable nonspecific immunophenotype. On day of ICU admission patient had witnessed aspiration event. [employer] was called in PM for hypoxia and tachycardia. Patient transferred to ICU for hypoxic respiratory failure. Patient intubated. ABG 7.3/54/242 (ACVC: 20/400/100 +5). Patient given adenosine for SVT w/ underlying sinus rhythm. Patient continued to have RVR and was given lopressor 5mg x1 w/ HR improved to 120s. Family called but were unavailable. - History Source - Current Medication List Current Medications: Active Medications Albuterol/Ipratropium (Duoneb -) 1 amp NEB QIDR [facility] Last Admin: 06/08/17 06:55 Dose: 1 amp Atorvastatin Calcium (Lipitor -) 20 mg PO HS [facility] Last Admin: 06/07/17 23:24 Dose: 20 mg Chlorhexidine Gluconate (Peridex -) 15 ml MM BID [facility] Last Admin: 06/08/17 10:30 Dose: 15 ml Diltiazem HCl (Cardizem -) 30 mg PEG TID [facility] Last Admin: 06/07/17 23:19 Dose: Not Given Midazolam HCl 100 mg/ Sodium (Chloride) 100 mls @ 3 mls/hr IVPB TITR JOCELYNE; 3 MG/ HR PRN Reason: Protocol Last Admin: 06/08/17 10:22 Dose: Not Given Piperacillin Sod/Tazobactam (Sod 3.375 gm/ Dextrose) 50 mls @ 100 mls/hr IVPB Q8H-IV JOCELYNE PRN Reason: Protocol Last Admin: 06/08/17 10:23 Dose: 100 mls/hr Norepinephrine Bitartrate 8, (000 mcg/ Dextrose) 500 mls @ 7.2 mls/hr IV ASDIR JOCELYNE; 0.03 MCG/KG/MIN PRN Reason: Protocol Last Admin: 06/07/17 23:20 Dose: Not Given Levothyroxine Sodium (Synthroid -) 100 mcg PEG DAILY@0700 [facility] Last Admin: 06/08/17 06:38 Dose: 100 mcg Nystatin (Mycostatin Cream -) 1 applic TP BID [facility] Last Admin: 06/08/17 10:29 Dose: 1 applic Pantoprazole Sodium (Protonix Packets For Oral Suspension -) 40 mg PEG DAILY [facility] Last Admin: 06/08/17 10:29 Dose: 40 mg - Objective Vital Signs: Vital Signs Temperature 98.8 F 06/08/17 06:00 Pulse Rate 117 H 06/08/17 08:00 Respiratory Rate 16 06/08/17 10:36 Blood Pressure 107/51 06/08/17 08:00 O2 Sat by Pulse Oximetry (%) 100 06/08/17 09:45 Eyes: Yes: WNL, Conjunctiva Clear, EOM Intact HENT: Yes: WNL, Atraumatic, Normocephalic Neck: Yes: WNL, Supple, Trachea Midline Cardiovascular: Yes: WNL, Regular Rate and Rhythm Respiratory: Yes: Diminished, Intubated, Mechanically Ventilated Gastrointestinal: Yes: WNL, Normal Bowel Sounds Genitourinary: Yes: WNL Musculoskeletal: Yes: WNL Extremities: Yes: WNL Edema: Yes Edema: LUE: 1+, RUE: 1+, LLE: 1+, RLE: 1+ Integumentary: Yes: WNL ...Motor Strength: WNL Psychiatric: Yes: WNL Labs: CBC, BMP 06/08/17 01:30 06/08/17 06:15 INR, PTT INR 1.02 (0.82-1.09) 06/05/17 20:30 Problem List - Problems (1) CHF (congestive heart failure) Code(s): I50.9 - HEART FAILURE, UNSPECIFIED Qualifiers: Congestive heart failure type: unspecified congestive heart failure type Congestive heart failure chronicity: chronic Qualified Code(s): I50.9 - Heart failure, unspecified (2) Smoking addiction Code(s): F17.200 - NICOTINE DEPENDENCE, UNSPECIFIED, UNCOMPLICATED (3) Smoking Code(s): F17.200 - NICOTINE DEPENDENCE, UNSPECIFIED, UNCOMPLICATED (4) Aortic stenosis Code(s): I35.0 - NONRHEUMATIC AORTIC (VALVE) STENOSIS (5) Osteoporosis Code(s): M81.0 - AGE-RELATED OSTEOPOROSIS W/O CURRENT PATHOLOGICAL FRACTURE (6) Hypothyroidism Code(s): E03.9 - HYPOTHYROIDISM, UNSPECIFIED Qualifiers: Hypothyroidism type: unspecified Qualified Code(s): E03.9 - Hypothyroidism , unspecified (7) HTN (hypertension) Code(s): I10 - ESSENTIAL (PRIMARY) HYPERTENSION (8) Macrocytosis Code(s): D75.89 - OTHER SPECIFIED DISEASES OF BLOOD AND BLOOD-FORMING ORGANS (9) Paroxysmal SVT (supraventricular tachycardia) Code(s): I47.1 - SUPRAVENTRICULAR TACHYCARDIA (10) Pancytopenia Code(s): D61.818 - OTHER PANCYTOPENIA (11) Altered mental status, unspecified Code(s): R41.82 - ALTERED MENTAL STATUS, UNSPECIFIED (12) UTI (urinary tract infection) Code(s): N39.0 - URINARY TRACT INFECTION, SITE NOT SPECIFIED (13) Dementia Code(s): F03.90 - UNSPECIFIED DEMENTIA WITHOUT BEHAVIORAL DISTURBANCE Qualifiers: Dementia type: unspecified type Dementia behavioral disturbance: without behavioral disturbance Qualified Code(s): F03.90 - Unspecified dementia without behavioral disturbance (14) Fever Code(s): R50.9 - FEVER, UNSPECIFIED (15) Aspiration pneumonia Code(s): J69.0 - PNEUMONITIS DUE TO INHALATION OF FOOD AND VOMIT Qualifiers: Aspiration pneumonia type: unspecified (16) Anemia Code(s): D64.9 - ANEMIA, UNSPECIFIED Qualifiers: Anemia type: other cause Other causes of anemia: acute posthemorrhagic Qualified Code(s): D62 - Acute posthemorrhagic anemia (17) Acute respiratory failure with hypoxia and hypercapnia Code(s): J96.01 - ACUTE RESPIRATORY FAILURE WITH HYPOXIA; J96.02 - ACUTE RESPIRATORY FAILURE WITH HYPERCAPNIA (18) Shock Code(s): R57.9 - SHOCK, UNSPECIFIED Assessment/Plan Assessment/Plan Recurrent Acute Hypoxic Respiratory Failure: PNA vs CHF? severe anemia CVA Szs UTI LV Systolic Dysfunction Hyponatremia Dementia Pancytopenia REC: -cont abx as per PMD, vent support -hold on further diuresis for now. check hct after transfussion cc time 36 min
--- NOTE | 2017-06-08 13:20 | PN ---
Teaching Attending Note Name of Resident: Bobo Alba ATTENDING PHYSICIAN STATEMENT I saw and evaluated the patient. I reviewed the resident's note and discussed the case with the resident. I agree with the resident's findings and plan as documented. SUBJECTIVE: Pt seen and examined in the ICU. Remains intubated on presesor support. Poorly responsive off sedation. OBJECTIVE: Last Vital Signs Temp Pulse Resp BP Pulse Ox 98.8 F 112 H 14 110/59 100 06/08/17 06:00 06/08/17 10:00 06/08/17 12:05 06/08/17 10:00 06/08/17 09:45 Intake & Output 06/05/17 06/06/17 06/07/17 06/08/17 23:59 23:59 23:59 23:59 Intake Total 960 1586 1586 576 Output Total 1200 1700 1350 400 Balance -240 -114 236 176 Weight 133 lb 141 lb 1.6 oz 144 lb 141 lb 7 oz Gen: intubated, poorly responsive Heart: tachycardic, regular Lung: scattered rhonchi Abd: soft, nontender Ext: + edema CBC, BMP 06/08/17 01:30 06/08/17 06:15 Active Medications Albuterol/Ipratropium (Duoneb -) 1 amp NEB QIDR [facility] Last Admin: 06/08/17 06:55 Dose: 1 amp Atorvastatin Calcium (Lipitor -) 20 mg PO HS [facility] Last Admin: 06/07/17 23:24 Dose: 20 mg Chlorhexidine Gluconate (Peridex -) 15 ml MM BID [facility] Last Admin: 06/08/17 10:30 Dose: 15 ml Diltiazem HCl (Cardizem -) 30 mg PEG TID [facility] Last Admin: 06/07/17 23:19 Dose: Not Given Midazolam HCl 100 mg/ Sodium (Chloride) 100 mls @ 3 mls/hr IVPB TITR JOCELYNE; 3 MG/ HR PRN Reason: Protocol Last Admin: 06/08/17 10:22 Dose: Not Given Piperacillin Sod/Tazobactam (Sod 3.375 gm/ Dextrose) 50 mls @ 100 mls/hr IVPB Q8H-IV JOCELYNE PRN Reason: Protocol Last Admin: 06/08/17 10:23 Dose: 100 mls/hr Norepinephrine Bitartrate 8, (000 mcg/ Dextrose) 500 mls @ 7.2 mls/hr IV ASDIR JOCELYNE; 0.03 MCG/KG/MIN PRN Reason: Protocol Last Admin: 06/07/17 23:20 Dose: Not Given Levothyroxine Sodium (Synthroid -) 100 mcg PEG DAILY@0700 [facility] Last Admin: 06/08/17 06:38 Dose: 100 mcg Nystatin (Mycostatin Cream -) 1 applic TP BID [facility] Last Admin: 06/08/17 10:29 Dose: 1 applic Pantoprazole Sodium (Protonix Packets For Oral Suspension -) 40 mg PEG DAILY [facility] Last Admin: 06/08/17 10:29 Dose: 40 mg ASSESSMENT AND PLAN: Acute Hypoxic Respiratory Failure Aspiration Pneumonia vs Pneumonitis Acute CVA Seizure from Above UTI Pneumonia +Troponins likely from [place] Ischemia LV Systolic Dysfunction Hyponatremia Dementia - antibiotics per ID - enteral feeds - taper levophed gtt to maintain MAP>65 - monitor lytes - transfuse PRBC - monitor H/H - taper O2 to keep SpO2 >90% - continue volume assist control - it is clear that pt is unable to protect her airway as this is her 3rd intubation this admission, will need tracheostomy - DVT/GI prophylaxis - continue ICU monitoring critical care time spent in reviewing chart, evaluating patient and formulating plan 35 min
[2017-06-08 14:38] LABS: OSMOLALITY,SERUM 256 mosm/kg (278-305)
--- NOTE | 2017-06-08 15:58 | PN ---
Progress Note, Physician History of Present Illness: continues to be sedated and intubated plan is for trach tomorrow - Current Medication List Current Medications: Active Medications Albuterol/Ipratropium (Duoneb -) 1 amp NEB QIDR [facility] Last Admin: 06/08/17 12:00 Dose: 1 amp Atorvastatin Calcium (Lipitor -) 20 mg PO HS [facility] Last Admin: 06/07/17 23:24 Dose: 20 mg Chlorhexidine Gluconate (Peridex -) 15 ml MM BID [facility] Last Admin: 06/08/17 10:30 Dose: 15 ml Diltiazem HCl (Cardizem -) 30 mg PEG TID [facility] Last Admin: 06/07/17 23:19 Dose: Not Given Midazolam HCl 100 mg/ Sodium (Chloride) 100 mls @ 3 mls/hr IVPB TITR JOCELYNE; 3 MG/ HR PRN Reason: Protocol Last Admin: 06/08/17 10:22 Dose: Not Given Piperacillin Sod/Tazobactam (Sod 3.375 gm/ Dextrose) 50 mls @ 100 mls/hr IVPB Q8H-IV JOCELYNE PRN Reason: Protocol Last Admin: 06/08/17 10:23 Dose: 100 mls/hr Norepinephrine Bitartrate 8, (000 mcg/ Dextrose) 500 mls @ 7.2 mls/hr IV ASDIR JOCELYNE; 0.03 MCG/KG/MIN PRN Reason: Protocol Last Admin: 06/07/17 23:20 Dose: Not Given Levothyroxine Sodium (Synthroid -) 100 mcg PEG DAILY@0700 [facility] Last Admin: 06/08/17 06:38 Dose: 100 mcg Nystatin (Mycostatin Cream -) 1 applic TP BID [facility] Last Admin: 06/08/17 10:29 Dose: 1 applic Pantoprazole Sodium (Protonix Packets For Oral Suspension -) 40 mg PEG DAILY [facility] Last Admin: 06/08/17 10:29 Dose: 40 mg - Objective Vital Signs: Vital Signs Temperature 98.8 F 06/08/17 06:00 Pulse Rate 114 H 06/08/17 13:52 Respiratory Rate 15 06/08/17 14:10 Blood Pressure 109/61 06/08/17 13:52 O2 Sat by Pulse Oximetry (%) 100 06/08/17 09:45 Constitutional: Yes: No Distress, Calm Cardiovascular: Yes: Regular Rate and Rhythm Respiratory: Yes: Regular, Poor Air Entry, Rhonchi Gastrointestinal: Yes: Normal Bowel Sounds, Soft, Other (peg tube in place) Genitourinary: Yes: Beck Present Extremities: Yes: WNL Labs: CBC, BMP 06/08/17 01:30 06/08/17 06:15 INR, PTT INR 1.02 (0.82-1.09) 06/05/17 20:30 Assessment/Plan Problem List - Problems (1) UTI (urinary tract infection) Code(s): N39.0 - URINARY TRACT INFECTION, SITE NOT SPECIFIED (2) Dementia Code(s): F03.90 - UNSPECIFIED DEMENTIA WITHOUT BEHAVIORAL DISTURBANCE (3) Pancytopenia Code(s): D61.818 - OTHER PANCYTOPENIA (4) CHF (congestive heart failure) Code(s): I50.9 - HEART FAILURE, UNSPECIFIED Qualifiers: Congestive heart failure type: unspecified congestive heart failure type Congestive heart failure chronicity: chronic Qualified Code(s): I50.9 - Heart failure, unspecified (5) HTN (hypertension) Code(s): I10 - ESSENTIAL (PRIMARY) HYPERTENSION (6) Hypothyroidism Code(s): E03.9 - HYPOTHYROIDISM, UNSPECIFIED Aspiration pneumonia Code(s): J69.0 - PNEUMONITIS DUE TO INHALATION OF FOOD AND VOMIT lactic acidosis patient reintubated plan mercedes harris plan is for trach continue nutrition monitor rest as per icu and primary team nutrition cc time 40 min
--- NOTE | 2017-06-08 16:52 | PN ---
Progress Note, Physician History of Present Illness: Pt seen and examined at bedside. She remains in the ICU. Pt remains intubated. - Current Medication List Current Medications: Active Medications Albuterol/Ipratropium (Duoneb -) 1 amp NEB QIDR [facility] Last Admin: 06/08/17 12:00 Dose: 1 amp Atorvastatin Calcium (Lipitor -) 20 mg PO HS [facility] Last Admin: 06/07/17 23:24 Dose: 20 mg Chlorhexidine Gluconate (Peridex -) 15 ml MM BID [facility] Last Admin: 06/08/17 10:30 Dose: 15 ml Diltiazem HCl (Cardizem -) 30 mg PEG TID [facility] Last Admin: 06/07/17 23:19 Dose: Not Given Midazolam HCl 100 mg/ Sodium (Chloride) 100 mls @ 3 mls/hr IVPB TITR JOCELYNE; 3 MG/ HR PRN Reason: Protocol Last Admin: 06/08/17 10:22 Dose: Not Given Piperacillin Sod/Tazobactam (Sod 3.375 gm/ Dextrose) 50 mls @ 100 mls/hr IVPB Q8H-IV JOCELYNE PRN Reason: Protocol Last Admin: 06/08/17 10:23 Dose: 100 mls/hr Norepinephrine Bitartrate 8, (000 mcg/ Dextrose) 500 mls @ 7.2 mls/hr IV ASDIR JOCELYNE; 0.03 MCG/KG/MIN PRN Reason: Protocol Last Admin: 06/07/17 23:20 Dose: Not Given Levothyroxine Sodium (Synthroid -) 100 mcg PEG DAILY@0700 [facility] Last Admin: 06/08/17 06:38 Dose: 100 mcg Nystatin (Mycostatin Cream -) 1 applic TP BID [facility] Last Admin: 06/08/17 10:29 Dose: 1 applic Pantoprazole Sodium (Protonix Packets For Oral Suspension -) 40 mg PEG DAILY [facility] Last Admin: 06/08/17 10:29 Dose: 40 mg - Objective Vital Signs: Vital Signs Temperature 98.8 F 06/08/17 06:00 Pulse Rate 114 H 06/08/17 13:52 Respiratory Rate 15 06/08/17 14:10 Blood Pressure 109/61 06/08/17 13:52 O2 Sat by Pulse Oximetry (%) 100 06/08/17 09:45 Constitutional: Yes: Calm Eyes: Yes: Conjunctiva Clear HENT: Yes: Atraumatic Neck: Yes: Supple Cardiovascular: Yes: S1, S2 Respiratory: Yes: Mechanically Ventilated Gastrointestinal: Yes: Soft Genitourinary: Yes: Beck Present Musculoskeletal: Yes: Muscle Weakness Edema: Yes Edema: LUE: 1+, RUE: 1+ Neurological: Yes: Lethargy Labs: CBC, BMP 06/08/17 01:30 06/08/17 06:15 INR, PTT INR 1.02 (0.82-1.09) 06/05/17 20:30 Problem List - Problems (1) Hyponatremia Code(s): E87.1 - HYPO-OSMOLALITY AND HYPONATREMIA (2) Acute on chronic systolic (congestive) heart failure Code(s): I50.23 - ACUTE ON CHRONIC SYSTOLIC (CONGESTIVE) HEART FAILURE (3) Acute respiratory failure Code(s): J96.00 - ACUTE RESPIRATORY FAILURE, UNSP W HYPOXIA OR HYPERCAPNIA (4) CVA (cerebral vascular accident) Code(s): I63.9 - CEREBRAL INFARCTION, UNSPECIFIED (5) Pancytopenia Code(s): D61.818 - OTHER PANCYTOPENIA (6) CHF (congestive heart failure) Code(s): I50.9 - HEART FAILURE, UNSPECIFIED Qualifiers: Congestive heart failure type: unspecified congestive heart failure type Congestive heart failure chronicity: chronic Qualified Code(s): I50.9 - Heart failure, unspecified (7) HTN (hypertension) Code(s): I10 - ESSENTIAL (PRIMARY) HYPERTENSION Assessment/Plan Current Medications Generic Name Dose Route Start Last Admin Trade Name Freq PRN Reason Stop Dose Admin Albuterol/Ipratropium 1 amp 06/05/17 18:30 06/08/17 12:00 Duoneb - NEB 1 amp QIDR JOCELYNE Administration Atorvastatin Calcium 20 mg 05/31/17 22:00 06/07/17 23:24 Lipitor - PO 20 mg HS JOCELYNE Administration Chlorhexidine Gluconate 15 ml 06/07/17 10:00 06/08/17 10:30 Peridex - MM 15 ml BID JOCELYNE Administration Diltiazem HCl 30 mg 05/31/17 22:00 06/07/17 23:19 Cardizem - PEG Not Given TID JOCELYNE Midazolam HCl 100 mg/ Sodium 100 mls @ 3 mls/hr 06/06/17 04:00 06/08/17 10:22 Chloride IVPB Not Given TITR JOCELYNE Protocol 3 MG/HR Piperacillin Sod/Tazobactam 50 mls @ 100 mls/hr 06/06/17 14:00 06/08/17 10:23 Sod 3.375 gm/ Dextrose IVPB 100 mls/hr Q8H-IV JOCELYNE Administration Protocol Norepinephrine Bitartrate 8, 500 mls @ 7.2 mls/hr 06/06/17 22:00 06/07/17 23: 20 000 mcg/ Dextrose IV Not Given ASDIR JOCELYNE Protocol 0.03 MCG/KG/MIN Levothyroxine Sodium 100 mcg 06/02/17 14:15 06/08/17 06:38 Synthroid - PEG 100 mcg DAILY@0700 JOCELYNE Administration Nystatin 1 applic 05/31/17 22:00 06/08/17 10:29 Mycostatin Cream - TP 1 applic BID JOCELYNE Administration Pantoprazole Sodium 40 mg 06/03/17 10:00 06/08/17 10:29 Protonix Packets For Oral Suspension - PEG 40 mg DAILY JOCELYNE Administration Laboratory Tests 05/22/17 05/23/17 06/05/17 06:00 06:05 18:50 Sodium 136 131 L Serum Osmolality B-Natriuretic Peptide Urine Protein 2+ H Urine Osmolality Ur Random Sodium 06/05/17 06/06/17 06/07/17 20:30 14:00 06:00 Sodium 127 L Serum Osmolality B-Natriuretic Peptide 29662.18 H 8650 H Urine Protein Negative Urine Osmolality Ur Random Sodium 06/07/17 06/07/17 06/08/17 17:00 17:00 06:15 Sodium 128 L Serum Osmolality 256 L B-Natriuretic Peptide Urine Protein Urine Osmolality 216 L Ur Random Sodium 28 Laboratory Tests 06/07/17 06/08/17 06:00 06:15 TSH 28.60 H D Cortisol AM Sample 23.9 Impression 1. hyponatremia 2. pancytopenia 3. resp failure requiring intubation 4. CHF 5. hematuria 6. HTN 7. UTI 8. dementia 9. volume overload 10. hypothyroidism 11. seizure 12. PNA Plan - sodium is slowly improving - pressure is improving slowly - repeat labs in am - pt has an appropriately low urine osm - will continue to follow volume status - consider lasix if bp permits, increasing free water clearance will help with sodium - cont pressors to a map of 65 as needed - discussed with ICU team - discussed with pmd Dr Angeles
[2017-06-08] MEDS: ATORVASTATIN CA 20 MG TABLET (FP) PO SCH (22:05)
[2017-06-09] MEDS: NOREPINEPHRINE BITARTRATE 8,000 MCG in DEXTROSE 5%-WATER - 492 ML IV SCH (01:04)
[2017-06-09] MEDS ORDERED: PT OWN MED DRAWER 7, Y5N ONE ×4 (01:09→09:39)
[2017-06-09] MEDS: PIPERACILLIN/TAZOB 3.375 GM 3.375 GM in DEXTROSE 5%-WATER - 50 ML IVPB SCH ×3 (01:12→17:02)
[2017-06-09] MEDS: dilTIAZem HCL 30 MG TABLET (FP) PEG SCH ×3 (05:51→22:12)
[2017-06-09] MEDS: MIDAZOLAM 100 MG in SODIUM CHLORIDE 100 ML IVPB SCH (06:00)
[2017-06-09] MEDS: LEVOTHYROXINE NA 100 MCG TABLET (FP) PEG SCH (06:16)
[2017-06-09 06:21] LABS: BASOPHIL 0.4 % (0-2.0); EOSINOPHIL 4.2 % (0-4.5); MCH 33.3 pg (25.7-33.7); MCHC 35.5 g/dl (32.0-36.0); MEAN CELL VOLUME 93.9 fl (80-96); MEAN PLT VOLUME 7.2 fl (7.5-11.1); NEUTROPHILS 77.6 % (42.8-82.8); PLATELET COUNT 56 K/MM3 (134-434); WHITE BLOOD COUNT 2.8 K/mm3 (4.0-10.0)
[2017-06-09] MEDS: ALBUTEROL SO4 2.5/IPRATROPIUM 0.5 INH SOL 3 ML VIAL.NEB. NEB SCH ×3 (06:35→17:40)
[2017-06-09 06:40] LABS: INR 1.1 (0.82-1.09); PROTHROMBIN TIME (PATIENT) 12.4 SEC (9.98-11.88)
[2017-06-09 06:59] LABS: ALBUMIN 1.5 g/dl (3.4-5.0); ANION GAP 9 (8-16); BILIRUBIN,TOTAL 0.4 mg/dL (0.2-1.0); CALCIUM 7.4 mg/dL (8.5-10.1); CO2 26 mmol/L (21-32); CREATININE 0.6 mg/dL (0.55-1.02); GLUCOSE,RANDOM 100 mg/dL (74-106); SGOT/AST 14 U/L (15-37); SGPT/ALT 21 U/L (12-78); TOT PROT 4.3 g/dl (6.4-8.2)
[2017-06-09 07:00] LABS: ALK PHOS 330 U/L (45-117)
[2017-06-09 08:10] LABS: ARTERIAL BLD GAS O2 SATURATION 98.6 % (90-98.9); ARTERIAL BLOOD GAS BASE EXCESS 2.2 meq/l (-2-2); ARTERIAL BLOOD GAS HCO3 25.9 meq/L (22-26); ARTERIAL BLOOD GAS PO2 97.5 mmHg (68-100); ARTERIAL BLOOD GAS pH 7.45 (7.35-7.45)
[2017-06-09 08:13] LABS: ALLENS TEST POSITIVE; ART PUNCT SITE RIGHT RADIAL; LPM/O2% 30; MECH. VENT. Y; PT. ON O2? YES; TYPE OF O2 VENT
[2017-06-09 08:14] LABS: VENT RATE 14; VT/PRESS 350
[2017-06-09] MEDS: CHLORHEXIDINE GLUCONATE 0.12% 15ML CUP MM SCH ×2 (09:44→22:11)
[2017-06-09] MEDS: NYSTATIN 100,000 UNIT/GM TOPICAL CREAM 15 GM TUBE TP SCH ×2 (09:44→22:13)
[2017-06-09] MEDS: PANTOPRAZOLE SOD 40 MG SUSPENSION PACKET PEG SCH (09:45)
--- NOTE | 2017-06-09 10:37 | PN ---
Progress Note, Physician Chief Complaint: Intubated and sedated - Current Medication List Current Medications: Active Medications Albuterol/Ipratropium (Duoneb -) 1 amp NEB QIDR [facility] Last Admin: 06/09/17 06:35 Dose: 1 amp Atorvastatin Calcium (Lipitor -) 20 mg PO HS [facility] Last Admin: 06/08/17 22:05 Dose: 20 mg Chlorhexidine Gluconate (Peridex -) 15 ml MM BID [facility] Last Admin: 06/09/17 09:44 Dose: 15 ml Diltiazem HCl (Cardizem -) 30 mg PEG TID [facility] Last Admin: 06/09/17 05:51 Dose: 30 mg Midazolam HCl 100 mg/ Sodium (Chloride) 100 mls @ 3 mls/hr IVPB TITR JOCELYNE; 3 MG/ HR PRN Reason: Protocol Last Admin: 06/09/17 06:00 Dose: 3 mg/hr, 3 mls/hr Piperacillin Sod/Tazobactam (Sod 3.375 gm/ Dextrose) 50 mls @ 100 mls/hr IVPB Q8H-IV JOCELYNE PRN Reason: Protocol Last Admin: 06/09/17 01:12 Dose: 100 mls/hr Levothyroxine Sodium (Synthroid -) 100 mcg PEG DAILY@0700 [facility] Last Admin: 06/09/17 06:16 Dose: 100 mcg Nystatin (Mycostatin Cream -) 1 applic TP BID [facility] Last Admin: 06/09/17 09:44 Dose: 1 applic Pantoprazole Sodium (Protonix Packets For Oral Suspension -) 40 mg PEG DAILY [facility] Last Admin: 06/09/17 09:45 Dose: 40 mg - Objective Vital Signs: Vital Signs Temperature 36.7 C 06/09/17 10:00 Pulse Rate 88 06/09/17 10:00 Respiratory Rate 17 06/09/17 10:00 Blood Pressure 116/90 06/09/17 10:00 O2 Sat by Pulse Oximetry (%) 100 06/09/17 08:00 Constitutional: Yes: No Distress, Other (sedated) Cardiovascular: Yes: Regular Rate and Rhythm. No: Gallop, Murmur, Rub Respiratory: Yes: Regular, Intubated, Mechanically Ventilated, Rhonchi (slight) . No: CTA Bilaterally, Rales, Wheezes Gastrointestinal: Yes: Normal Bowel Sounds, Soft. No: Distention, Tenderness Extremities: Yes: WNL Edema: No Labs: CBC, BMP 06/09/17 06:00 06/09/17 06:00 INR, PTT INR 1.10 (0.82-1.09) 06/09/17 06:00 Problem List - Problems (1) CHF (congestive heart failure) Code(s): I50.9 - HEART FAILURE, UNSPECIFIED Qualifiers: Congestive heart failure type: unspecified congestive heart failure type Congestive heart failure chronicity: chronic Qualified Code(s): I50.9 - Heart failure, unspecified (2) Hypothyroidism Code(s): E03.9 - HYPOTHYROIDISM, UNSPECIFIED Qualifiers: Hypothyroidism type: unspecified Qualified Code(s): E03.9 - Hypothyroidism , unspecified (3) HTN (hypertension) Code(s): I10 - ESSENTIAL (PRIMARY) HYPERTENSION (4) Pancytopenia Code(s): D61.818 - OTHER PANCYTOPENIA (5) UTI (urinary tract infection) Code(s): N39.0 - URINARY TRACT INFECTION, SITE NOT SPECIFIED (6) Dementia Code(s): F03.90 - UNSPECIFIED DEMENTIA WITHOUT BEHAVIORAL DISTURBANCE Qualifiers: Dementia type: unspecified type Dementia behavioral disturbance: without behavioral disturbance Qualified Code(s): F03.90 - Unspecified dementia without behavioral disturbance (7) Aspiration pneumonia Code(s): J69.0 - PNEUMONITIS DUE TO INHALATION OF FOOD AND VOMIT Qualifiers: Aspiration pneumonia type: unspecified (8) Anemia Code(s): D64.9 - ANEMIA, UNSPECIFIED Qualifiers: Anemia type: other cause Other causes of anemia: acute posthemorrhagic Qualified Code(s): D62 - Acute posthemorrhagic anemia (9) Acute respiratory failure Code(s): J96.00 - ACUTE RESPIRATORY FAILURE, UNSP W HYPOXIA OR HYPERCAPNIA (10) Septic shock Code(s): A41.9 - SEPSIS, UNSPECIFIED ORGANISM; R65.21 - SEVERE SEPSIS WITH SEPTIC SHOCK Assessment/Plan (1) Acute respiratory failure -continues to require intubation -will need trach (2) Elevated troponin -stress induced -cardiology following but no further treatment needed (3) Seizure -resolved -no need for seizure treatment -appreciate neurology assistance (4) CHF exacerbation -stable -no need for diuresis currently (5) Pneumonia with septic shock -concern for aspiration -continue zosyn per ID -now off pressors (6) UTI -treated (7) Hyponatremia -appreciate nephrology assistance -improving (8) Hypothyroid -continue levothyroxine (9) Anemia -stable and slightly improved today 33 minutes spent in critical care time with this patient
--- NOTE | 2017-06-09 11:37 | PN ---
Teaching Attending Note Name of Resident: Bobo Alba ATTENDING PHYSICIAN STATEMENT I saw and evaluated the patient. I reviewed the resident's note and discussed the case with the resident. I agree with the resident's findings and plan as documented. SUBJECTIVE: Pt seen and examined in the ICU. Remains intubated, sedated. Vented on volume assist control with 40% FiO2. No fevers recorded. OBJECTIVE: Last Vital Signs Temp Pulse Resp BP Pulse Ox 98.1 F 88 17 116/90 100 06/09/17 10:00 06/09/17 10:00 06/09/17 10:00 06/09/17 10:00 06/09/17 08:00 Intake & Output 06/06/17 06/07/17 06/08/17 06/09/17 23:59 23:59 23:59 23:59 Intake Total 1586 1586 576 669 Output Total 1700 1350 900 500 Balance -114 236 -324 169 Weight 141 lb 1.6 oz 144 lb 141 lb 7 oz 142 lb Gen: intubated, sedated Heart: RRR Lung: decreased breath sounds at the bases Abd: soft, nontender Ext: + edema CBC, BMP 06/09/17 06:00 06/09/17 06:00 Active Medications Albuterol/Ipratropium (Duoneb -) 1 amp NEB QIDR [facility] Last Admin: 06/09/17 06:35 Dose: 1 amp Atorvastatin Calcium (Lipitor -) 20 mg PO HS [facility] Last Admin: 06/08/17 22:05 Dose: 20 mg Chlorhexidine Gluconate (Peridex -) 15 ml MM BID [facility] Last Admin: 06/09/17 09:44 Dose: 15 ml Diltiazem HCl (Cardizem -) 30 mg PEG TID [facility] Last Admin: 06/09/17 05:51 Dose: 30 mg Midazolam HCl 100 mg/ Sodium (Chloride) 100 mls @ 3 mls/hr IVPB TITR JOCELYNE; 3 MG/ HR PRN Reason: Protocol Last Admin: 06/09/17 06:00 Dose: 3 mg/hr, 3 mls/hr Piperacillin Sod/Tazobactam (Sod 3.375 gm/ Dextrose) 50 mls @ 100 mls/hr IVPB Q8H-IV JOCELYNE PRN Reason: Protocol Last Admin: 06/09/17 01:12 Dose: 100 mls/hr Levothyroxine Sodium (Synthroid -) 100 mcg PEG DAILY@0700 [facility] Last Admin: 06/09/17 06:16 Dose: 100 mcg Nystatin (Mycostatin Cream -) 1 applic TP BID [facility] Last Admin: 06/09/17 09:44 Dose: 1 applic Pantoprazole Sodium (Protonix Packets For Oral Suspension -) 40 mg PEG DAILY [facility] Last Admin: 06/09/17 09:45 Dose: 40 mg ASSESSMENT AND PLAN: Acute Hypoxic Respiratory Failure Aspiration Pneumonia vs Pneumonitis Septic Shock improving Acute CVA Seizure from Above UTI Pneumonia +Troponins likely from Demand Ischemia LV Systolic Dysfunction Hyponatremia Dementia - antibiotics per ID - enteral feeds - monitor lytes - monitor H/H - taper O2 to keep SpO2 >90% - continue volume assist control - it is clear that pt is unable to protect her airway as this is her 3rd intubation this admission - for tracheostomy today - DVT/GI prophylaxis - continue ICU monitoring critical care time spent in reviewing chart, evaluating patient and formulating plan 35 min
--- NOTE | 2017-06-09 12:20 | PN ---
Progress Note, Physician History of Present Illness: This is a 82 yo woman PMH: dementia, hypothyroid, HTN, active tobacco, CAD s/p sent, CHF presenting to ICU after [facility] for hypoxic respiratory failure, SVT (HR 180s) and shock. Briefly, patient initially presented for frequent falls and altered mental status with overall physical and cognitive decline over the last 6 months prior to admission. CT head: w/ central atrophy and mild microvascular ischemic gliosis. Labs significant for hypothyroid, leukopenia and pyuria, she was started on ceftriaxone. Neurology was consulted. Endocrine consulted. Mental status had some improvement while on the floor. Speech and swallow eval done c/ f aspiration. ABX were switch to zosyn given increased secretions and c/f pneumonia. Plans made for potential PEG placement. Patient continued to have waxing and waning mental status. Patient had notable right facial droop and NCHCT done w/o acute pathology. She completed a course of ABX. GI was consulted for c/f GIB. Heme also consulted given anemia and leukopenia and w/u sent: flow- -0.2% blasts, clonal B cells questionable nonspecific immunophenotype. On day of ICU admission patient had witnessed aspiration event. [facility] was called in PM for hypoxia and tachycardia. Patient transferred to ICU for hypoxic respiratory failure. Patient intubated. ABG 7.3/54/242 (ACVC: 20/400/100 +5). Patient given adenosine for SVT w/ underlying sinus rhythm. Patient continued to have RVR and was given lopressor 5mg x1 w/ HR improved to 120s. Family called but were unavailable. - History Source - Current Medication List Current Medications: Active Medications Albuterol/Ipratropium (Duoneb -) 1 amp NEB QIDR [facility] Last Admin: 06/09/17 06:35 Dose: 1 amp Atorvastatin Calcium (Lipitor -) 20 mg PO HS [facility] Last Admin: 06/08/17 22:05 Dose: 20 mg Chlorhexidine Gluconate (Peridex -) 15 ml MM BID [facility] Last Admin: 06/09/17 09:44 Dose: 15 ml Diltiazem HCl (Cardizem -) 30 mg PEG TID [facility] Last Admin: 06/09/17 05:51 Dose: 30 mg Midazolam HCl 100 mg/ Sodium (Chloride) 100 mls @ 3 mls/hr IVPB TITR JOCELYNE; 3 MG/ HR PRN Reason: Protocol Last Admin: 06/09/17 06:00 Dose: 3 mg/hr, 3 mls/hr Piperacillin Sod/Tazobactam (Sod 3.375 gm/ Dextrose) 50 mls @ 100 mls/hr IVPB Q8H-IV JOCELYNE PRN Reason: Protocol Last Admin: 06/09/17 01:12 Dose: 100 mls/hr Levothyroxine Sodium (Synthroid -) 100 mcg PEG DAILY@0700 [facility] Last Admin: 06/09/17 06:16 Dose: 100 mcg Nystatin (Mycostatin Cream -) 1 applic TP BID [facility] Last Admin: 06/09/17 09:44 Dose: 1 applic Pantoprazole Sodium (Protonix Packets For Oral Suspension -) 40 mg PEG DAILY [facility] Last Admin: 06/09/17 09:45 Dose: 40 mg - Objective Vital Signs: Vital Signs Temperature 98.0 F 06/09/17 12:00 Pulse Rate 94 H 06/09/17 12:00 Respiratory Rate 18 06/09/17 12:00 Blood Pressure 125/64 06/09/17 12:00 O2 Sat by Pulse Oximetry (%) 98 06/09/17 10:20 Eyes: Yes: WNL, Conjunctiva Clear, EOM Intact HENT: Yes: WNL, Atraumatic, Normocephalic Neck: Yes: WNL, Supple, Trachea Midline Cardiovascular: Yes: WNL, Regular Rate and Rhythm Respiratory: Yes: Intubated, Mechanically Ventilated Gastrointestinal: Yes: WNL, Normal Bowel Sounds Genitourinary: Yes: WNL Musculoskeletal: Yes: WNL Extremities: Yes: WNL Edema: No Integumentary: Yes: WNL Neurological: Yes: WNL, Alert, Oriented ...Motor Strength: WNL Psychiatric: Yes: WNL Labs: CBC, BMP 06/09/17 06:00 06/09/17 06:00 INR, PTT INR 1.10 (0.82-1.09) 06/09/17 06:00 Problem List - Problems (1) CHF (congestive heart failure) Code(s): I50.9 - HEART FAILURE, UNSPECIFIED Qualifiers: Congestive heart failure type: unspecified congestive heart failure type Congestive heart failure chronicity: chronic Qualified Code(s): I50.9 - Heart failure, unspecified (2) Smoking addiction Code(s): F17.200 - NICOTINE DEPENDENCE, UNSPECIFIED, UNCOMPLICATED (3) Smoking Code(s): F17.200 - NICOTINE DEPENDENCE, UNSPECIFIED, UNCOMPLICATED (4) Aortic stenosis Code(s): I35.0 - NONRHEUMATIC AORTIC (VALVE) STENOSIS (5) Osteoporosis Code(s): M81.0 - AGE-RELATED OSTEOPOROSIS W/O CURRENT PATHOLOGICAL FRACTURE (6) Hypothyroidism Code(s): E03.9 - HYPOTHYROIDISM, UNSPECIFIED Qualifiers: Hypothyroidism type: unspecified Qualified Code(s): E03.9 - Hypothyroidism , unspecified (7) HTN (hypertension) Code(s): I10 - ESSENTIAL (PRIMARY) HYPERTENSION (8) Macrocytosis Code(s): D75.89 - OTHER SPECIFIED DISEASES OF BLOOD AND BLOOD-FORMING ORGANS (9) Paroxysmal SVT (supraventricular tachycardia) Code(s): I47.1 - SUPRAVENTRICULAR TACHYCARDIA (10) Pancytopenia Code(s): D61.818 - OTHER PANCYTOPENIA (11) Altered mental status, unspecified Code(s): R41.82 - ALTERED MENTAL STATUS, UNSPECIFIED (12) UTI (urinary tract infection) Code(s): N39.0 - URINARY TRACT INFECTION, SITE NOT SPECIFIED (13) Dementia Code(s): F03.90 - UNSPECIFIED DEMENTIA WITHOUT BEHAVIORAL DISTURBANCE Qualifiers: Dementia type: unspecified type Dementia behavioral disturbance: without behavioral disturbance Qualified Code(s): F03.90 - Unspecified dementia without behavioral disturbance (14) Fever Code(s): R50.9 - FEVER, UNSPECIFIED (15) Aspiration pneumonia Code(s): J69.0 - PNEUMONITIS DUE TO INHALATION OF FOOD AND VOMIT Qualifiers: Aspiration pneumonia type: unspecified (16) Anemia Code(s): D64.9 - ANEMIA, UNSPECIFIED Qualifiers: Anemia type: other cause Other causes of anemia: acute posthemorrhagic Qualified Code(s): D62 - Acute posthemorrhagic anemia (17) Acute respiratory failure with hypoxia and hypercapnia Code(s): J96.01 - ACUTE RESPIRATORY FAILURE WITH HYPOXIA; J96.02 - ACUTE RESPIRATORY FAILURE WITH HYPERCAPNIA (18) Shock Code(s): R57.9 - SHOCK, UNSPECIFIED Assessment/Plan Assessment/Plan Recurrent Acute Hypoxic Respiratory Failure: PNA vs CHF? severe anemia CVA Szs UTI LV Systolic Dysfunction Hyponatremia Dementia Pancytopenia REC: -cont abx as per PMD, vent support -hold on further diuresis for now. check hct after transfussion cc time 36 min
--- NOTE | 2017-06-09 12:30 | PN ---
Progress Note, Physician History of Present Illness: stable post trach calm - Current Medication List Current Medications: Active Medications Albuterol/Ipratropium (Duoneb -) 1 amp NEB QIDR [facility] Last Admin: 06/09/17 06:35 Dose: 1 amp Atorvastatin Calcium (Lipitor -) 20 mg PO HS [facility] Last Admin: 06/08/17 22:05 Dose: 20 mg Chlorhexidine Gluconate (Peridex -) 15 ml MM BID [facility] Last Admin: 06/09/17 09:44 Dose: 15 ml Diltiazem HCl (Cardizem -) 30 mg PEG TID [facility] Last Admin: 06/09/17 05:51 Dose: 30 mg Midazolam HCl 100 mg/ Sodium (Chloride) 100 mls @ 3 mls/hr IVPB TITR JOCELYNE; 3 MG/ HR PRN Reason: Protocol Last Admin: 06/09/17 06:00 Dose: 3 mg/hr, 3 mls/hr Piperacillin Sod/Tazobactam (Sod 3.375 gm/ Dextrose) 50 mls @ 100 mls/hr IVPB Q8H-IV JOCELYNE PRN Reason: Protocol Last Admin: 06/09/17 12:20 Dose: 100 mls/hr Levothyroxine Sodium (Synthroid -) 100 mcg PEG DAILY@0700 [facility] Last Admin: 06/09/17 06:16 Dose: 100 mcg Nystatin (Mycostatin Cream -) 1 applic TP BID [facility] Last Admin: 06/09/17 09:44 Dose: 1 applic Pantoprazole Sodium (Protonix Packets For Oral Suspension -) 40 mg PEG DAILY [facility] Last Admin: 06/09/17 09:45 Dose: 40 mg - Objective Vital Signs: Vital Signs Temperature 98.0 F 06/09/17 12:00 Pulse Rate 94 H 06/09/17 12:00 Respiratory Rate 18 06/09/17 12:00 Blood Pressure 125/64 06/09/17 12:00 O2 Sat by Pulse Oximetry (%) 98 06/09/17 10:20 Constitutional: Yes: No Distress, Calm Cardiovascular: Yes: Regular Rate and Rhythm Respiratory: Yes: Mechanically Ventilated, Other (trach) Gastrointestinal: Yes: Normal Bowel Sounds, Soft, Other (peg) Musculoskeletal: Yes: WNL Extremities: Yes: WNL Neurological: Yes: Alert, Other Labs: CBC, BMP 06/09/17 06:00 06/09/17 06:00 INR, PTT INR 1.10 (0.82-1.09) 06/09/17 06:00 Assessment/Plan Problem List - Problems (1) UTI (urinary tract infection) Code(s): N39.0 - URINARY TRACT INFECTION, SITE NOT SPECIFIED (2) Dementia Code(s): F03.90 - UNSPECIFIED DEMENTIA WITHOUT BEHAVIORAL DISTURBANCE (3) Pancytopenia Code(s): D61.818 - OTHER PANCYTOPENIA (4) CHF (congestive heart failure) Code(s): I50.9 - HEART FAILURE, UNSPECIFIED Qualifiers: Congestive heart failure type: unspecified congestive heart failure type Congestive heart failure chronicity: chronic Qualified Code(s): I50.9 - Heart failure, unspecified (5) HTN (hypertension) Code(s): I10 - ESSENTIAL (PRIMARY) HYPERTENSION (6) Hypothyroidism Code(s): E03.9 - HYPOTHYROIDISM, UNSPECIFIED Aspiration pneumonia Code(s): J69.0 - PNEUMONITIS DUE TO INHALATION OF FOOD AND VOMIT lactic acidosis patient reintubated plan conitnue zosyn stable post trach continue nutrition monitor rest as per icu and primary team nutrition cc time 40 min
--- NOTE | 2017-06-09 12:32 | PN ---
Progress Note, Physician History of Present Illness: Pt seen and examined at bedside. She remains in the ICU. Pt remains intubated. - Current Medication List Current Medications: Active Medications Albuterol/Ipratropium (Duoneb -) 1 amp NEB QIDR [facility] Last Admin: 06/09/17 06:35 Dose: 1 amp Atorvastatin Calcium (Lipitor -) 20 mg PO HS [facility] Last Admin: 06/08/17 22:05 Dose: 20 mg Chlorhexidine Gluconate (Peridex -) 15 ml MM BID [facility] Last Admin: 06/09/17 09:44 Dose: 15 ml Diltiazem HCl (Cardizem -) 30 mg PEG TID [facility] Last Admin: 06/09/17 05:51 Dose: 30 mg Midazolam HCl 100 mg/ Sodium (Chloride) 100 mls @ 3 mls/hr IVPB TITR JOCELYNE; 3 MG/ HR PRN Reason: Protocol Last Admin: 06/09/17 06:00 Dose: 3 mg/hr, 3 mls/hr Piperacillin Sod/Tazobactam (Sod 3.375 gm/ Dextrose) 50 mls @ 100 mls/hr IVPB Q8H-IV JOCELYNE PRN Reason: Protocol Last Admin: 06/09/17 12:20 Dose: 100 mls/hr Levothyroxine Sodium (Synthroid -) 100 mcg PEG DAILY@0700 [facility] Last Admin: 06/09/17 06:16 Dose: 100 mcg Nystatin (Mycostatin Cream -) 1 applic TP BID [facility] Last Admin: 06/09/17 09:44 Dose: 1 applic Pantoprazole Sodium (Protonix Packets For Oral Suspension -) 40 mg PEG DAILY [facility] Last Admin: 06/09/17 09:45 Dose: 40 mg - Objective Vital Signs: Vital Signs Temperature 98.0 F 06/09/17 12:00 Pulse Rate 94 H 06/09/17 12:00 Respiratory Rate 18 06/09/17 12:00 Blood Pressure 125/64 06/09/17 12:00 O2 Sat by Pulse Oximetry (%) 98 06/09/17 10:20 Constitutional: Yes: Calm Eyes: Yes: Conjunctiva Clear HENT: Yes: Atraumatic Neck: Yes: Supple Cardiovascular: Yes: S1, S2 Respiratory: Yes: CTA Bilaterally Gastrointestinal: Yes: Normal Bowel Sounds, Soft Genitourinary: Yes: Beck Present Musculoskeletal: Yes: Muscle Weakness Edema: Yes Edema: LUE: 1+, RUE: 1+ Neurological: Yes: Lethargy Labs: CBC, BMP 06/09/17 06:00 06/09/17 06:00 INR, PTT INR 1.10 (0.82-1.09) 06/09/17 06:00 - ....Imaging Chest X-ray: Report Reviewed Problem List - Problems (1) Hyponatremia Code(s): E87.1 - HYPO-OSMOLALITY AND HYPONATREMIA (2) Acute on chronic systolic (congestive) heart failure Code(s): I50.23 - ACUTE ON CHRONIC SYSTOLIC (CONGESTIVE) HEART FAILURE (3) Acute respiratory failure Code(s): J96.00 - ACUTE RESPIRATORY FAILURE, UNSP W HYPOXIA OR HYPERCAPNIA (4) CVA (cerebral vascular accident) Code(s): I63.9 - CEREBRAL INFARCTION, UNSPECIFIED (5) Pancytopenia Code(s): D61.818 - OTHER PANCYTOPENIA (6) CHF (congestive heart failure) Code(s): I50.9 - HEART FAILURE, UNSPECIFIED Qualifiers: Congestive heart failure type: unspecified congestive heart failure type Congestive heart failure chronicity: chronic Qualified Code(s): I50.9 - Heart failure, unspecified (7) HTN (hypertension) Code(s): I10 - ESSENTIAL (PRIMARY) HYPERTENSION Assessment/Plan Current Medications Generic Name Dose Route Start Last Admin Trade Name Freq PRN Reason Stop Dose Admin Albuterol/Ipratropium 1 amp 06/05/17 18:30 06/09/17 06:35 Duoneb - NEB 1 amp QIDR JOCELYNE Administration Atorvastatin Calcium 20 mg 05/31/17 22:00 06/08/17 22:05 Lipitor - PO 20 mg HS JOCELYNE Administration Chlorhexidine Gluconate 15 ml 06/07/17 10:00 06/09/17 09:44 Peridex - MM 15 ml BID JOCELYNE Administration Diltiazem HCl 30 mg 05/31/17 22:00 06/09/17 05:51 Cardizem - PEG 30 mg TID JOCELYNE Administration Midazolam HCl 100 mg/ Sodium 100 mls @ 3 mls/hr 06/06/17 04:00 06/09/17 06:00 Chloride IVPB 3 mg/hr TITR JOCELYNE 3 mls/hr Protocol Administration 3 MG/HR Piperacillin Sod/Tazobactam 50 mls @ 100 mls/hr 06/06/17 14:00 06/09/17 12:20 Sod 3.375 gm/ Dextrose IVPB 100 mls/hr Q8H-IV JOCELYNE Administration Protocol Levothyroxine Sodium 100 mcg 06/02/17 14:15 06/09/17 06:16 Synthroid - PEG 100 mcg DAILY@0700 JOCELYNE Administration Nystatin 1 applic 05/31/17 22:00 06/09/17 09:44 Mycostatin Cream - TP 1 applic BID JOCELYNE Administration Pantoprazole Sodium 40 mg 06/03/17 10:00 06/09/17 09:45 Protonix Packets For Oral Suspension - PEG 40 mg DAILY JOCELYNE Administration Impression 1. hyponatremia 2. pancytopenia 3. resp failure requiring intubation 4. CHF 5. hematuria 6. HTN 7. UTI 8. dementia 9. volume overload 10. hypothyroidism 11. seizure 12. PNA Plan - sodium is improved - repeat labs in am - hold of lasix for now - pressors to a MAP of 65 - cont vent support - monitor urine output - discussed with ICU team - will follow Dr Angeles
--- NOTE | 2017-06-09 13:40 | PN ---
Physical Exam: SUBJECTIVE: Patient seen and examined patient intubated and sedated. not or pressor. tube feed was hold for tracheostomy. not on heparin due to thrombocytienia. OBJECTIVE: Vital Signs Period Temp Pulse Resp BP Sys/Damon Pulse Ox Last 24 Hr 98.0 F-98.9 F 88-118 15-24 105-125/52-90 97-100 GENERAL: sedated intubated LUNGS: Breath sounds equal, scattered ronchi, no accessory muscle use. HEART: s1s2. ABDOMEN: Soft, nontender, nondistended, normoactive bowel sounds, no guarding, no rebound, EXTREMITIES: edema ++ PSYCH: Normal mood, normal affect. SKIN: Warm, dry, Laboratory Results - last 24 hr 06/08/17 06/09/17 06/09/17 06:15 06:00 06:00 WBC 2.8 L RBC 2.35 L Hgb 7.8 L Hct 22.0 L MCV 93.9 MCH 33.3 MCHC 35.5 RDW 16.0 H Plt Count 56 L MPV 7.2 L D Neutrophils % 77.6 Lymphocytes % 14.6 Monocytes % 3.2 L Eosinophils % 4.2 Basophils % 0.4 PT with INR 12.40 H INR 1.10 Puncture Site ABG pH ABG pCO2 at Pt Temp ABG pO2 at Pt Temp ABG HCO3 ABG O2 Sat (Measured) ABG O2 Content ABG Base Excess Demario Test O2 Delivery Device Oxygen Flow Rate Vent Rate Mechanical Rate PEEP Pressure Support Vent Sodium Potassium Chloride Carbon Dioxide Anion Gap BUN Creatinine Creat Clearance w eGFR Random Glucose Serum Osmolality 256 L Calcium Total Bilirubin AST ALT Alkaline Phosphatase Total Protein Albumin 06/09/17 06/09/17 06:00 07:55 WBC RBC Hgb Hct MCV MCH MCHC RDW Plt Count MPV Neutrophils % Lymphocytes % Monocytes % Eosinophils % Basophils % PT with INR INR Puncture Site Right radial ABG pH 7.45 ABG pCO2 at Pt Temp 38.0 ABG pO2 at Pt Temp 97.5 ABG HCO3 25.9 ABG O2 Sat (Measured) 98.6 ABG O2 Content 11.4 L ABG Base Excess 2.2 H Demario Test Positive O2 Delivery Device Vent Oxygen Flow Rate 30 Vent Rate 14 Mechanical Rate Y PEEP 5.0 Pressure Support Vent 350 Sodium 133 L Potassium 3.5 Chloride 98 Carbon Dioxide 26 Anion Gap 9 BUN 11 Creatinine 0.6 Creat Clearance w eGFR > 60 Random Glucose 100 Serum Osmolality Calcium 7.4 L Total Bilirubin 0.4 D AST 14 L ALT 21 Alkaline Phosphatase 330 H D Total Protein 4.3 L Albumin 1.5 L Active Medications Generic Name Dose Route Start Last Admin Trade Name Freq PRN Reason Stop Dose Admin Albuterol/Ipratropium 1 amp 06/05/17 18:30 06/09/17 06:35 Duoneb - NEB 1 amp QIDR JOCELYNE Administration Atorvastatin Calcium 20 mg 05/31/17 22:00 06/08/17 22:05 Lipitor - PO 20 mg HS JOCELYNE Administration Chlorhexidine Gluconate 15 ml 06/07/17 10:00 06/09/17 09:44 Peridex - MM 15 ml BID JOCELYNE Administration Diltiazem HCl 30 mg 05/31/17 22:00 06/09/17 13:21 Cardizem - PEG Not Given TID JOCELYNE Midazolam HCl 100 mg/ Sodium 100 mls @ 3 mls/hr 06/06/17 04:00 06/09/17 06:00 Chloride IVPB 3 mg/hr TITR JOCELYNE 3 mls/hr Protocol Administration 3 MG/HR Piperacillin Sod/Tazobactam 50 mls @ 100 mls/hr 06/06/17 14:00 06/09/17 12:20 Sod 3.375 gm/ Dextrose IVPB 100 mls/hr Q8H-IV JOCELYNE Administration Protocol Levothyroxine Sodium 100 mcg 06/02/17 14:15 06/09/17 06:16 Synthroid - PEG 100 mcg DAILY@0700 JOCELYNE Administration Nystatin 1 applic 05/31/17 22:00 06/09/17 09:44 Mycostatin Cream - TP 1 applic BID JOCELYNE Administration Pantoprazole Sodium 40 mg 06/03/17 10:00 06/09/17 09:45 Protonix Packets For Oral Suspension - PEG 40 mg DAILY JOCELYNE Administration ASSESSMENT/PLAN: 82 year old female with PMH CHF, hypothyroid, CAD s/p stent, presented to the ER with frequent falls and AMS Plan: 1. Acute Hypoxic Respiratory failure - Due to sepsis and PNA - sedated on ventilator support. - will get tracheostomy today 2. Seizure - No reported seizure like activity 3. Sepsis due to PNA and VRE UTI - on zosyn started for apspiration pneumonia - monitor vitals, - monitor intake and output 4. Anemia - Hgb 7.8 after blood transfusion 5. Hypothyroid - Increased synthroid to 100mcg 6HTN on cardiazem 7 hypothyroidism on synthroid 100mcg 8. DVT ppx - SCD - Hold pharamcologic anticoagulation due to thrombocytopenia start tube feed after tracheostomy Visit type - Emergency Visit Emergency Visit: Yes ED Registration Date: 04/01/17 Care time: The patient presented to the Emergency Department on the above date and was hospitalized for further evaluation of their emergent condition. - New Patient This patient is new to me today: No - Critical Care Critical Care patient: Yes Total Critical Care Time (in minutes): 45 Critical Care Statement: The care of this patient involved high complexity decision making to prevent further life threatening deterioration of the patient 's condition and/or to evaluate & treat vital organ system(s) failure or risk of failure.
[2017-06-09] MEDS ORDERED: VECURONIUM BROMIDE 10 MG VIAL ONE (14:13)
[2017-06-09] MEDS ORDERED: PROPOFOL 20 ML ONE (14:23)
[2017-06-09] MEDS ORDERED: PROPOFOL 200 MG/20 ML VIAL IVPUSH ONE (14:49)
[2017-06-09] MEDS ORDERED: VECURONIUM BROMIDE 50 MG VIAL IVPUSH ONE (14:50)
--- NOTE | 2017-06-09 14:56 | PROC ---
Procedure Note Procedure: BRONCHOSCOPY NOTE After obtaining informed consent, pt was placed given sedation and paralytics. Storz video bronchoscope was passed via the ETT and the airways were examined down to the subsegmental level. The soraida was sharp, there were no endobronchial lesions noted. Minimal secretions in the airway which were easily suctioned. The trachea was visualized as the surgeon placed the percutaneous tracheostomy. Bronchoscope was then passed via the fresh tracheostomy and there was no heme noted. Bronchoscope then withdrawn and procedure terminated. No immediate complications. Oscar Lopez MD
--- NOTE | 2017-06-09 16:29 | OPR ---
Patient Name: Saadia Aguilar MR#: [id number] Procedure Date: 06/09/17 Preoperative Diagnosis: Respiratory failure Postoperative Diagnosis: same. Procedure: 1. Flexible Bronchoscopy (performed by Dr. Lopez); 2. Percutaneous tracheostomy. Indication: Respiratory failure; Surgeon(s): Lauri Hicks MD Cosurgeon: safia Svp Operations Surgeon: safia Anesthesia: local; Findings: Bronchoscopy: secretions in airway; tracheostomy in place without significant bleeding; Specimens Sent: 1. None. Complications: None. Drains / Tubes / Catheters: #8 Shiley Hardware / Implants: na Blood / Fluid Losses: none. Post-Operative Condition: hemodynamically stable. Indications: This patient is an 82 year-old female referred from the ICU team for tracheostomy because of prolonged respiratory failure. An informed consent was given by her son for the procedure. All questions were addressed and answered. Details of Procedure: The procedure was done at the bedside. Dr. Lopez performed a bronchoscopy after a timeout and she was given paralysis and prepared and draped. I then injected lidocaine and made a small incision. Blunt dissection was done down to the airway. Next under vision from bronchoscopy, the needle as inserted between the second and third ring. Using Seldinger technique the wire, dilator, Blue Rhino, and finally the tracheostomy were inserted. It was secured with sutures. A completion bronchoscopy showed good position and hemostasis. She tolerated the procedure well.
[2017-06-09] MEDS: ATORVASTATIN CA 20 MG TABLET (FP) PO SCH (22:12)
[2017-06-10] MEDS: ALBUTEROL SO4 2.5/IPRATROPIUM 0.5 INH SOL 3 ML VIAL.NEB. NEB SCH ×4 (00:05→17:19)
[2017-06-10] MEDS ORDERED: PT OWN MED DRAWER 7, Y5N ONE ×4 (02:02→20:17)
[2017-06-10] MEDS: PIPERACILLIN/TAZOB 3.375 GM 3.375 GM in DEXTROSE 5%-WATER - 50 ML IVPB SCH ×3 (02:12→17:01)
[2017-06-10] MEDS: MIDAZOLAM 100 MG in SODIUM CHLORIDE 100 ML IVPB SCH (04:00)
[2017-06-10] MEDS: dilTIAZem HCL 30 MG TABLET (FP) PEG SCH ×3 (05:49→23:04)
[2017-06-10] MEDS: LEVOTHYROXINE NA 100 MCG TABLET (FP) PEG SCH (06:11)
[2017-06-10 07:49] LABS: BASOPHIL 0.5 % (0-2.0); EOSINOPHIL 4.4 % (0-4.5); MCH 32.9 pg (25.7-33.7); MCHC 35.1 g/dl (32.0-36.0); NEUTROPHILS 68.6 % (42.8-82.8); PLATELET COUNT 50 K/MM3 (134-434); RDW 16.1 % (11.6-15.6); WHITE BLOOD COUNT 2.3 K/mm3 (4.0-10.0)
[2017-06-10] MEDS: AMINO ACIDS/PROTEIN HYDROLYS 30 ML LIQUID.PKT PO SCH ×3 (08:00→16:55)
[2017-06-10 08:13] LABS: ALBUMIN 1.6 g/dl (3.4-5.0); ALK PHOS 357 U/L (45-117); ANION GAP 9 (8-16); BILIRUBIN,TOTAL 0.4 mg/dL (0.2-1.0); CALCIUM 7.6 mg/dL (8.5-10.1); CO2 25 mmol/L (21-32); CREATININE 0.5 mg/dL (0.55-1.02); GLUCOSE,RANDOM 143 mg/dL (74-106); MAGNESIUM 1.8 mg/dL (1.8-2.4); PHOSPHOROUS 2.3 mg/dL (2.5-4.9); SGOT/AST 14 U/L (15-37); SGPT/ALT 22 U/L (12-78); TOT PROT 4.8 g/dl (6.4-8.2)
[2017-06-10] MEDS: CHLORHEXIDINE GLUCONATE 0.12% 15ML CUP MM SCH ×2 (09:15→23:23)
[2017-06-10] MEDS: NYSTATIN 100,000 UNIT/GM TOPICAL CREAM 15 GM TUBE TP SCH ×2 (09:16→23:04)
[2017-06-10] MEDS: PANTOPRAZOLE SOD 40 MG SUSPENSION PACKET PEG SCH (09:16)
--- NOTE | 2017-06-10 10:23 | PN ---
Progress Note, Physician Chief Complaint: Unable to obtain - Current Medication List Current Medications: Active Medications Albuterol/Ipratropium (Duoneb -) 1 amp NEB QIDR [facility] [place] Last Admin: 06/10/17 06:01 Dose: 1 amp Amino Acids (Prosource No Carb Liquid Pkt) 30 ml PO BID@0800,1730 [facility] [place] Last Admin: 06/10/17 08:00 Dose: 30 ml Atorvastatin Calcium (Lipitor -) 20 mg PO HS [facility] [place] Last Admin: 06/09/17 22:12 Dose: 20 mg Chlorhexidine Gluconate (Peridex -) 15 ml MM BID [facility] [place] Last Admin: 06/10/17 09:15 Dose: 15 ml Diltiazem HCl (Cardizem -) 30 mg PEG TID [facility] [place] Last Admin: 06/10/17 05:49 Dose: 30 mg Midazolam HCl 100 mg/ Sodium (Chloride) 100 mls @ 3 mls/hr IVPB TITR JOCELYNE; 3 MG/ HR PRN Reason: Protocol Last Titration: 06/10/17 06:20 Dose: 2 mg/hr, 2 mls/hr Piperacillin Sod/Tazobactam (Sod 3.375 gm/ Dextrose) 50 mls @ 100 mls/hr IVPB Q8H-IV JOCELYNE PRN Reason: Protocol Last Admin: 06/10/17 09:16 Dose: 100 mls/hr Levothyroxine Sodium (Synthroid -) 100 mcg PEG DAILY@0700 [facility] [place] Last Admin: 06/10/17 06:11 Dose: 100 mcg Nystatin (Mycostatin Cream -) 1 applic TP BID [facility] [place] Last Admin: 06/10/17 09:16 Dose: 1 applic Pantoprazole Sodium (Protonix Packets For Oral Suspension -) 40 mg PEG DAILY [facility] [place] Last Admin: 06/10/17 09:16 Dose: 40 mg - Objective Vital Signs: Vital Signs Temperature 36.7 C 06/10/17 10:00 Pulse Rate 98 H 06/10/17 10:00 Respiratory Rate 21 06/10/17 10:00 Blood Pressure 124/71 06/10/17 10:00 O2 Sat by Pulse Oximetry (%) 100 06/10/17 08:00 Constitutional: Yes: No Distress, Calm Neck: Yes: Other (trach placed) Cardiovascular: Yes: Regular Rate and Rhythm. No: Gallop, Murmur, Rub Respiratory: Yes: Mechanically Ventilated, Rhonchi. No: Rales, Wheezes Gastrointestinal: Yes: Normal Bowel Sounds, Soft. No: Distention, Tenderness Extremities: Yes: WNL Edema: Yes Edema: LLE: Trace, RLE: Trace Labs: CBC, BMP 06/10/17 07:35 06/10/17 07:25 INR, PTT INR 1.10 (0.82-1.09) 06/09/17 06:00 Problem List - Problems (1) CHF (congestive heart failure) Code(s): I50.9 - HEART FAILURE, UNSPECIFIED Qualifiers: Congestive heart failure type: unspecified congestive heart failure type Congestive heart failure chronicity: chronic Qualified Code(s): I50.9 - Heart failure, unspecified (2) Hypothyroidism Code(s): E03.9 - HYPOTHYROIDISM, UNSPECIFIED Qualifiers: Hypothyroidism type: unspecified Qualified Code(s): E03.9 - Hypothyroidism , unspecified (3) HTN (hypertension) Code(s): I10 - ESSENTIAL (PRIMARY) HYPERTENSION (4) Pancytopenia Code(s): D61.818 - OTHER PANCYTOPENIA (5) UTI (urinary tract infection) Code(s): N39.0 - URINARY TRACT INFECTION, SITE NOT SPECIFIED (6) Dementia Code(s): F03.90 - UNSPECIFIED DEMENTIA WITHOUT BEHAVIORAL DISTURBANCE Qualifiers: Dementia type: unspecified type Dementia behavioral disturbance: without behavioral disturbance Qualified Code(s): F03.90 - Unspecified dementia without behavioral disturbance (7) Aspiration pneumonia Code(s): J69.0 - PNEUMONITIS DUE TO INHALATION OF FOOD AND VOMIT Qualifiers: Aspiration pneumonia type: unspecified (8) Anemia Code(s): D64.9 - ANEMIA, UNSPECIFIED Qualifiers: Anemia type: other cause Other causes of anemia: acute posthemorrhagic Qualified Code(s): D62 - Acute posthemorrhagic anemia (9) Acute respiratory failure Code(s): J96.00 - ACUTE RESPIRATORY FAILURE, UNSP W HYPOXIA OR HYPERCAPNIA (10) Septic shock Code(s): A41.9 - SEPSIS, UNSPECIFIED ORGANISM; R65.21 - SEVERE SEPSIS WITH SEPTIC SHOCK Assessment/Plan (1) Acute respiratory failure -s/p trach placement -continue mechanical ventilation -respiratory following -wean vent as tolerated -begin dispo planning once on oral antibiotics or IV antibiotic course finished (2) Elevated troponin -stress induced -cardiology following but no further treatment needed (3) Seizure -resolved -no need for seizure treatment -appreciate neurology assistance (4) CHF exacerbation -stable -no need for diuresis currently (5) Pneumonia with septic shock -concern for aspiration -continue zosyn per ID -now off pressors (6) UTI -treated (7) Hyponatremia -appreciate nephrology assistance -stable (8) Hypothyroid -continue levothyroxine (9) Anemia -improved today 32 minutes spent in critical care time with this patient
--- NOTE | 2017-06-10 12:12 | PN ---
Teaching Attending Note Name of Resident: Bobo Alba ATTENDING PHYSICIAN STATEMENT I saw and evaluated the patient. I reviewed the resident's note and discussed the case with the resident. I agree with the resident's findings and plan as documented. SUBJECTIVE: Patient seen and examined in the ICU. S/P Tracheostomy without acute issues overnight. Sedated on Versed drip. No pressors. Intake & Output 06/07/17 06/08/17 06/09/17 06/10/17 23:59 23:59 23:59 23:59 Intake Total 6413 658 9557 543 Output Total 4790 776 8059 300 Balance 236 -324 7 243 Weight 144 lb 141 lb 7 oz 142 lb 138 lb 3.2 oz Last Vital Signs Temp Pulse Resp BP Pulse Ox 98.0 F 98 H 21 124/71 100 06/10/17 10:00 06/10/17 10:00 06/10/17 10:31 06/10/17 10:00 06/10/17 08:00 Active Medications Albuterol/Ipratropium (Duoneb -) 1 amp NEB QIDR [facility] Last Admin: 06/10/17 11:02 Dose: 1 amp Amino Acids (Prosource No Carb Liquid Pkt) 30 ml PO BID@0800,1730 [facility] Last Admin: 06/10/17 08:00 Dose: 30 ml Atorvastatin Calcium (Lipitor -) 20 mg PO HS [facility] Last Admin: 06/09/17 22:12 Dose: 20 mg Chlorhexidine Gluconate (Peridex -) 15 ml MM BID [facility] Last Admin: 06/10/17 09:15 Dose: 15 ml Diltiazem HCl (Cardizem -) 30 mg PEG TID [facility] Last Admin: 06/10/17 05:49 Dose: 30 mg Midazolam HCl 100 mg/ Sodium (Chloride) 100 mls @ 3 mls/hr IVPB TITR JOCELYNE; 3 MG/ HR PRN Reason: Protocol Last Titration: 06/10/17 06:20 Dose: 2 mg/hr, 2 mls/hr Piperacillin Sod/Tazobactam (Sod 3.375 gm/ Dextrose) 50 mls @ 100 mls/hr IVPB Q8H-IV JOCELYNE PRN Reason: Protocol Last Admin: 06/10/17 09:16 Dose: 100 mls/hr Levothyroxine Sodium (Synthroid -) 100 mcg PEG DAILY@0700 [facility] Last Admin: 06/10/17 06:11 Dose: 100 mcg Nystatin (Mycostatin Cream -) 1 applic TP BID [facility] Last Admin: 06/10/17 09:16 Dose: 1 applic Pantoprazole Sodium (Protonix Packets For Oral Suspension -) 40 mg PEG DAILY [facility] Last Admin: 06/10/17 09:16 Dose: 40 mg Gen: Trached, sedated Heart: RRR Lung: decreased breath sounds at the bases, few scattered rhonchi Abd: soft, nontender Ext: + edema Laboratory Results - last 24 hr 06/07/17 06/10/17 06/10/17 07:20 07:25 07:35 WBC 2.3 L RBC 2.63 L Hgb 8.7 L D Hct 24.7 L MCV 94.0 MCH 32.9 MCHC 35.1 RDW 16.1 H Plt Count 50 L MPV 7.0 L Neutrophils % 68.6 Lymphocytes % 22.4 D Monocytes % 4.1 Eosinophils % 4.4 Basophils % 0.5 Sodium 132 L Potassium 3.6 Chloride 98 Carbon Dioxide 25 Anion Gap 9 BUN 10 Creatinine 0.5 L Creat Clearance w eGFR > 60 Random Glucose 143 H D Calcium 7.6 L Phosphorus 2.3 L Magnesium 1.8 Total Bilirubin 0.4 AST 14 L ALT 22 Alkaline Phosphatase 357 H Total Protein 4.8 L Albumin 1.6 L Blood Type A NEGATIVE Antibody Screen Negative Crossmatch See Detail ASSESSMENT AND PLAN: Acute Hypoxic Respiratory Failure Aspiration Pneumonia vs Pneumonitis Septic Shock improving Acute CVA Seizure from Above UTI Pneumonia +Troponins likely from [place] Ischemia LV Systolic Dysfunction Hyponatremia Dementia - antibiotics per ID - enteral feeds - monitor lytes - monitor H/H - taper O2 to keep SpO2 >90% - D/C sedation - Wean trials once awake and mental status improves - DVT/GI prophylaxis - Vent floor monitoring Dr Melgar Critical care time spent in reviewing chart, evaluating patient and formulating plan - 40 minutes.
[2017-06-10] MEDS ORDERED: MIDAZOLAM HCL 2 MG/2 ML SINGLE DOSE VIAL IVPUSH PRN ×2 (12:18→19:02)
[2017-06-10] MEDS ORDERED: morphine SULFATE 4 MG/ML VIAL IVPUSH PRN ×2 (12:19→19:02)
--- NOTE | 2017-06-10 13:37 | PN ---
Progress Note, Physician History of Present Illness: Pt seen and examined at bedside. She now has a trache. She remains in the ICU. - Current Medication List Current Medications: Active Medications Albuterol/Ipratropium (Duoneb -) 1 amp NEB QIDR [facility] Last Admin: 06/10/17 11:02 Dose: 1 amp Amino Acids (Prosource No Carb Liquid Pkt) 30 ml PO BID@0800,1730 [facility] Last Admin: 06/10/17 08:00 Dose: 30 ml Atorvastatin Calcium (Lipitor -) 20 mg PO HS [facility] Last Admin: 06/09/17 22:12 Dose: 20 mg Chlorhexidine Gluconate (Peridex -) 15 ml MM BID [facility] Last Admin: 06/10/17 09:15 Dose: 15 ml Diltiazem HCl (Cardizem -) 30 mg PEG TID [facility] Last Admin: 06/10/17 05:49 Dose: 30 mg Piperacillin Sod/Tazobactam (Sod 3.375 gm/ Dextrose) 50 mls @ 100 mls/hr IVPB Q8H-IV [facility] PRN Reason: Protocol Last Admin: 06/10/17 09:16 Dose: 100 mls/hr Levothyroxine Sodium (Synthroid -) 100 mcg PEG DAILY@0700 [facility] Last Admin: 06/10/17 06:11 Dose: 100 mcg Midazolam HCl (Versed -) 2 mg IVPUSH Q6H PRN PRN Reason: AGITATION Morphine Sulfate (Morphine Sulfate) 2 mg IVPUSH Q6H PRN PRN Reason: PAIN Nystatin (Mycostatin Cream -) 1 applic TP BID [facility] Last Admin: 06/10/17 09:16 Dose: 1 applic Pantoprazole Sodium (Protonix Packets For Oral Suspension -) 40 mg PEG DAILY [facility] Last Admin: 06/10/17 09:16 Dose: 40 mg - Objective Vital Signs: Vital Signs Temperature 98.3 F 06/10/17 12:00 Pulse Rate 106 H 06/10/17 12:00 Respiratory Rate 19 06/10/17 12:21 Blood Pressure 115/62 06/10/17 12:00 O2 Sat by Pulse Oximetry (%) 100 06/10/17 08:00 Constitutional: Yes: Calm Eyes: Yes: Conjunctiva Clear HENT: Yes: Atraumatic Neck: Yes: Supple Cardiovascular: Yes: S1, S2 Respiratory: Yes: Mechanically Ventilated Genitourinary: Yes: Beck Present Musculoskeletal: Yes: Muscle Weakness Edema: LUE: Trace, RUE: Trace Neurological: Yes: Lethargy Labs: CBC, BMP 06/10/17 07:35 06/10/17 07:25 INR, PTT INR 1.10 (0.82-1.09) 06/09/17 06:00 Problem List - Problems (1) Hyponatremia Code(s): E87.1 - HYPO-OSMOLALITY AND HYPONATREMIA (2) Acute on chronic systolic (congestive) heart failure Code(s): I50.23 - ACUTE ON CHRONIC SYSTOLIC (CONGESTIVE) HEART FAILURE (3) Acute respiratory failure Code(s): J96.00 - ACUTE RESPIRATORY FAILURE, UNSP W HYPOXIA OR HYPERCAPNIA (4) CVA (cerebral vascular accident) Code(s): I63.9 - CEREBRAL INFARCTION, UNSPECIFIED (5) Pancytopenia Code(s): D61.818 - OTHER PANCYTOPENIA (6) CHF (congestive heart failure) Code(s): I50.9 - HEART FAILURE, UNSPECIFIED Qualifiers: Congestive heart failure type: unspecified congestive heart failure type Congestive heart failure chronicity: chronic Qualified Code(s): I50.9 - Heart failure, unspecified (7) HTN (hypertension) Code(s): I10 - ESSENTIAL (PRIMARY) HYPERTENSION Assessment/Plan Current Medications Generic Name Dose Route Start Last Admin Trade Name Freq PRN Reason Stop Dose Admin Albuterol/Ipratropium 1 amp 06/05/17 18:30 06/10/17 11:02 Duoneb - NEB 1 amp QIDR JOCELYNE Administration Amino Acids 30 ml 06/10/17 07:45 06/10/17 08:00 Prosource No Carb Liquid Pkt PO 30 ml BID@0800,1730 JOCELYNE Administration Atorvastatin Calcium 20 mg 05/31/17 22:00 06/09/17 22:12 Lipitor - PO 20 mg HS JOCELYNE Administration Chlorhexidine Gluconate 15 ml 06/07/17 10:00 06/10/17 09:15 Peridex - MM 15 ml BID JOCELYNE Administration Diltiazem HCl 30 mg 05/31/17 22:00 06/10/17 05:49 Cardizem - PEG 30 mg TID JOCELYNE Administration Piperacillin Sod/Tazobactam 50 mls @ 100 mls/hr 06/06/17 14:00 06/10/17 09:16 Sod 3.375 gm/ Dextrose IVPB 100 mls/hr Q8H-IV JOCELYNE Administration Protocol Levothyroxine Sodium 100 mcg 06/02/17 14:15 06/10/17 06:11 Synthroid - PEG 100 mcg DAILY@0700 JOCELYNE Administration Midazolam HCl 2 mg 06/10/17 12:18 Versed - IVPUSH Q6H PRN AGITATION Morphine Sulfate 2 mg 06/10/17 12:19 Morphine Sulfate IVPUSH Q6H PRN PAIN Nystatin 1 applic 05/31/17 22:00 06/10/17 09:16 Mycostatin Cream - TP 1 applic BID JOCELYNE Administration Pantoprazole Sodium 40 mg 06/03/17 10:00 06/10/17 09:16 Protonix Packets For Oral Suspension - PEG 40 mg DAILY JOCELYNE Administration Impression 1. hyponatremia 2. pancytopenia 3. resp failure requiring intubation 4. CHF 5. hematuria 6. HTN 7. UTI 8. dementia 9. volume overload 10. hypothyroidism 11. seizure 12. PNA Plan - sodium is stable - repeat in am - vent support - no acute change in management - lasix on hold - pressors to a MAP of 65 - monitor urine output - discussed with ICU team - will follow Dr Angeles
--- NOTE | 2017-06-10 15:17 | PN ---
Progress Note, Physician History of Present Illness: This is a 82 yo woman PMH: dementia, hypothyroid, HTN, active tobacco, CAD s/p sent, CHF presenting to ICU after [employer] for hypoxic respiratory failure, SVT (HR 180s) and shock. Briefly, patient initially presented for frequent falls and altered mental status with overall physical and cognitive decline over the last 6 months prior to admission. CT head: w/ central atrophy and mild microvascular ischemic gliosis. Labs significant for hypothyroid, leukopenia and pyuria, she was started on ceftriaxone. Neurology was consulted. Endocrine consulted. Mental status had some improvement while on the floor. Speech and swallow eval done c/ f aspiration. ABX were switch to zosyn given increased secretions and c/f pneumonia. Plans made for potential PEG placement. Patient continued to have waxing and waning mental status. Patient had notable right facial droop and NCHCT done w/o acute pathology. She completed a course of ABX. GI was consulted for c/f GIB. Heme also consulted given anemia and leukopenia and w/u sent: flow- -0.2% blasts, clonal B cells questionable nonspecific immunophenotype. On day of ICU admission patient had witnessed aspiration event. [employer] CARTOONIST was called in PM for hypoxia and tachycardia. Patient transferred to ICU for hypoxic respiratory failure. Patient intubated. ABG 7.3/54/242 (ACVC: 20/400/100 +5). Patient given adenosine for SVT w/ underlying sinus rhythm. Patient continued to have RVR and was given lopressor 5mg x1 w/ HR improved to 120s. Family called but were unavailable. - History Source - Current Medication List Current Medications: Active Medications Albuterol/Ipratropium (Duoneb -) 1 amp NEB QIDR [facility] Last Admin: 06/10/17 11:02 Dose: 1 amp Amino Acids (Prosource No Carb Liquid Pkt) 30 ml PO BID@0800,1730 [facility] Last Admin: 06/10/17 08:00 Dose: 30 ml Atorvastatin Calcium (Lipitor -) 20 mg PO HS [facility] Last Admin: 06/09/17 22:12 Dose: 20 mg Chlorhexidine Gluconate (Peridex -) 15 ml MM BID [facility] Last Admin: 06/10/17 09:15 Dose: 15 ml Diltiazem HCl (Cardizem -) 30 mg PEG TID [facility] Last Admin: 06/10/17 14:17 Dose: Not Given Piperacillin Sod/Tazobactam (Sod 3.375 gm/ Dextrose) 50 mls @ 100 mls/hr IVPB Q8H-IV JOCELYNE PRN Reason: Protocol Last Admin: 06/10/17 09:16 Dose: 100 mls/hr Levothyroxine Sodium (Synthroid -) 100 mcg PEG DAILY@0700 [facility] Last Admin: 06/10/17 06:11 Dose: 100 mcg Midazolam HCl (Versed -) 2 mg IVPUSH Q6H PRN PRN Reason: AGITATION Morphine Sulfate (Morphine Sulfate) 2 mg IVPUSH Q6H PRN PRN Reason: PAIN Nystatin (Mycostatin Cream -) 1 applic TP BID [facility] Last Admin: 06/10/17 09:16 Dose: 1 applic Pantoprazole Sodium (Protonix Packets For Oral Suspension -) 40 mg PEG DAILY [facility] Last Admin: 06/10/17 09:16 Dose: 40 mg - Objective Vital Signs: Vital Signs Temperature 98.1 F 06/10/17 14:00 Pulse Rate 95 H 06/10/17 14:00 Respiratory Rate 24 06/10/17 14:10 Blood Pressure 122/78 06/10/17 14:00 O2 Sat by Pulse Oximetry (%) 100 06/10/17 08:00 Eyes: Yes: WNL, Conjunctiva Clear, EOM Intact HENT: Yes: WNL, Atraumatic, Normocephalic Neck: Yes: WNL, Supple, Trachea Midline Cardiovascular: Yes: WNL, Regular Rate and Rhythm Respiratory: Yes: Mechanically Ventilated Gastrointestinal: Yes: WNL, Normal Bowel Sounds Genitourinary: Yes: WNL Musculoskeletal: Yes: WNL Extremities: Yes: WNL Edema: No Integumentary: Yes: WNL Neurological: Yes: WNL, Alert, Oriented ...Motor Strength: WNL Psychiatric: Yes: WNL Labs: CBC, BMP 06/10/17 07:35 06/10/17 07:25 INR, PTT INR 1.10 (0.82-1.09) 06/09/17 06:00 Problem List - Problems (1) CHF (congestive heart failure) Code(s): I50.9 - HEART FAILURE, UNSPECIFIED Qualifiers: Congestive heart failure type: unspecified congestive heart failure type Congestive heart failure chronicity: chronic Qualified Code(s): I50.9 - Heart failure, unspecified (2) Smoking addiction Code(s): F17.200 - NICOTINE DEPENDENCE, UNSPECIFIED, UNCOMPLICATED (3) Smoking Code(s): F17.200 - NICOTINE DEPENDENCE, UNSPECIFIED, UNCOMPLICATED (4) Aortic stenosis Code(s): I35.0 - NONRHEUMATIC AORTIC (VALVE) STENOSIS (5) Osteoporosis Code(s): M81.0 - AGE-RELATED OSTEOPOROSIS W/O CURRENT PATHOLOGICAL FRACTURE (6) Hypothyroidism Code(s): E03.9 - HYPOTHYROIDISM, UNSPECIFIED Qualifiers: Hypothyroidism type: unspecified Qualified Code(s): E03.9 - Hypothyroidism , unspecified (7) HTN (hypertension) Code(s): I10 - ESSENTIAL (PRIMARY) HYPERTENSION (8) Macrocytosis Code(s): D75.89 - OTHER SPECIFIED DISEASES OF BLOOD AND BLOOD-FORMING ORGANS (9) Paroxysmal SVT (supraventricular tachycardia) Code(s): I47.1 - SUPRAVENTRICULAR TACHYCARDIA (10) Pancytopenia Code(s): D61.818 - OTHER PANCYTOPENIA (11) Altered mental status, unspecified Code(s): R41.82 - ALTERED MENTAL STATUS, UNSPECIFIED (12) UTI (urinary tract infection) Code(s): N39.0 - URINARY TRACT INFECTION, SITE NOT SPECIFIED (13) Dementia Code(s): F03.90 - UNSPECIFIED DEMENTIA WITHOUT BEHAVIORAL DISTURBANCE Qualifiers: Dementia type: unspecified type Dementia behavioral disturbance: without behavioral disturbance Qualified Code(s): F03.90 - Unspecified dementia without behavioral disturbance (14) Fever Code(s): R50.9 - FEVER, UNSPECIFIED (15) Aspiration pneumonia Code(s): J69.0 - PNEUMONITIS DUE TO INHALATION OF FOOD AND VOMIT Qualifiers: Aspiration pneumonia type: unspecified (16) Anemia Code(s): D64.9 - ANEMIA, UNSPECIFIED Qualifiers: Anemia type: other cause Other causes of anemia: acute posthemorrhagic Qualified Code(s): D62 - Acute posthemorrhagic anemia (17) Acute respiratory failure with hypoxia and hypercapnia Code(s): J96.01 - ACUTE RESPIRATORY FAILURE WITH HYPOXIA; J96.02 - ACUTE RESPIRATORY FAILURE WITH HYPERCAPNIA (18) Shock Code(s): R57.9 - SHOCK, UNSPECIFIED Assessment/Plan Assessment/Plan Recurrent Acute Hypoxic Respiratory Failure: PNA vs CHF? s/p tracheostomy severe anemia CVA Szs UTI LV Systolic Dysfunction Hyponatremia Dementia Pancytopenia REC: -cont abx as per PMD, vent support -hold on further diuresis for now. check hct after transfussion cc time 36 min
--- NOTE | 2017-06-10 15:38 | PN ---
Progress Note, Physician History of Present Illness: stable post trach no new issues - Current Medication List Current Medications: Active Medications Albuterol/Ipratropium (Duoneb -) 1 amp NEB QIDR [facility] Last Admin: 06/10/17 11:02 Dose: 1 amp Amino Acids (Prosource No Carb Liquid Pkt) 30 ml PO BID@0800,1730 [facility] Last Admin: 06/10/17 08:00 Dose: 30 ml Atorvastatin Calcium (Lipitor -) 20 mg PO HS [facility] Last Admin: 06/09/17 22:12 Dose: 20 mg Chlorhexidine Gluconate (Peridex -) 15 ml MM BID [facility] Last Admin: 06/10/17 09:15 Dose: 15 ml Diltiazem HCl (Cardizem -) 30 mg PEG TID [facility] Last Admin: 06/10/17 14:17 Dose: Not Given Piperacillin Sod/Tazobactam (Sod 3.375 gm/ Dextrose) 50 mls @ 100 mls/hr IVPB Q8H-IV [facility] PRN Reason: Protocol Last Admin: 06/10/17 09:16 Dose: 100 mls/hr Levothyroxine Sodium (Synthroid -) 100 mcg PEG DAILY@0700 [facility] Last Admin: 06/10/17 06:11 Dose: 100 mcg Midazolam HCl (Versed -) 2 mg IVPUSH Q6H PRN PRN Reason: AGITATION Morphine Sulfate (Morphine Sulfate) 2 mg IVPUSH Q6H PRN PRN Reason: PAIN Nystatin (Mycostatin Cream -) 1 applic TP BID [facility] Last Admin: 06/10/17 09:16 Dose: 1 applic Pantoprazole Sodium (Protonix Packets For Oral Suspension -) 40 mg PEG DAILY [facility] Last Admin: 06/10/17 09:16 Dose: 40 mg - Objective Vital Signs: Vital Signs Temperature 98.1 F 06/10/17 14:00 Pulse Rate 95 H 06/10/17 14:00 Respiratory Rate 24 06/10/17 14:10 Blood Pressure 122/78 06/10/17 14:00 O2 Sat by Pulse Oximetry (%) 100 06/10/17 08:00 Constitutional: Yes: No Distress, Calm Cardiovascular: Yes: Regular Rate and Rhythm Respiratory: Yes: Mechanically Ventilated, Other (trach) Gastrointestinal: Yes: Normal Bowel Sounds, Soft, Other (peg in place) Musculoskeletal: Yes: WNL Extremities: Yes: WNL Neurological: Yes: Alert, Other Psychiatric: Yes: Other Labs: CBC, BMP 06/10/17 07:35 06/10/17 07:25 INR, PTT INR 1.10 (0.82-1.09) 06/09/17 06:00 Assessment/Plan Problem List - Problems (1) UTI (urinary tract infection) Code(s): N39.0 - URINARY TRACT INFECTION, SITE NOT SPECIFIED (2) Dementia Code(s): F03.90 - UNSPECIFIED DEMENTIA WITHOUT BEHAVIORAL DISTURBANCE (3) Pancytopenia Code(s): D61.818 - OTHER PANCYTOPENIA (4) CHF (congestive heart failure) Code(s): I50.9 - HEART FAILURE, UNSPECIFIED Qualifiers: Congestive heart failure type: unspecified congestive heart failure type Congestive heart failure chronicity: chronic Qualified Code(s): I50.9 - Heart failure, unspecified (5) HTN (hypertension) Code(s): I10 - ESSENTIAL (PRIMARY) HYPERTENSION (6) Hypothyroidism Code(s): E03.9 - HYPOTHYROIDISM, UNSPECIFIED Aspiration pneumonia Code(s): J69.0 - PNEUMONITIS DUE TO INHALATION OF FOOD AND VOMIT lactic acidosis plan conitnue zosyn stable post trach continue nutrition monitor rest as per icu and primary team will plan on deescalating once patient stable cc time 40 min
[2017-06-10] MEDS: ATORVASTATIN CA 20 MG TABLET (FP) PO SCH (23:03)
[2017-06-11] MEDS: PIPERACILLIN/TAZOB 3.375 GM 3.375 GM in DEXTROSE 5%-WATER - 50 ML IVPB SCH ×3 (01:40→17:20)
[2017-06-11] MEDS: dilTIAZem HCL 30 MG TABLET (FP) PEG SCH ×3 (05:22→21:28)
[2017-06-11] MEDS: LEVOTHYROXINE NA 100 MCG TABLET (FP) PEG SCH ×2 (05:23→06:25)
[2017-06-11] MEDS: AMINO ACIDS/PROTEIN HYDROLYS 30 ML LIQUID.PKT PO SCH ×2 (08:04→17:20)
[2017-06-11] MEDS ORDERED: PT OWN MED DRAWER 7, Y5N ONE ×2 (09:39→17:16)
[2017-06-11] MEDS: PANTOPRAZOLE SOD 40 MG SUSPENSION PACKET PEG SCH (09:48)
--- NOTE | 2017-06-11 09:48 | PN ---
Progress Note, Physician History of Present Illness: stable post trach no new issues patient calm - Current Medication List Current Medications: Active Medications Amino Acids (Prosource No Carb Liquid Pkt) 30 ml PO BID@0800,1730 [facility] Last Admin: 06/11/17 08:04 Dose: 30 ml Atorvastatin Calcium (Lipitor -) 20 mg PO HS [facility] Last Admin: 06/10/17 23:03 Dose: 20 mg Chlorhexidine Gluconate (Peridex -) 15 ml MM BID [facility] Last Admin: 06/10/17 23:23 Dose: 15 ml Diltiazem HCl (Cardizem -) 30 mg PEG TID [facility] Last Admin: 06/11/17 05:22 Dose: 30 mg Piperacillin Sod/Tazobactam (Sod 3.375 gm/ Dextrose) 50 mls @ 100 mls/hr IVPB Q8H-IV JOCELYNE PRN Reason: Protocol Last Admin: 06/11/17 01:40 Dose: 100 mls/hr Levothyroxine Sodium (Synthroid -) 100 mcg PEG DAILY@0700 [facility] Last Admin: 06/11/17 06:25 Dose: 100 mcg Midazolam HCl (Versed -) 2 mg IVPUSH Q6H PRN PRN Reason: AGITATION Morphine Sulfate (Morphine Sulfate) 2 mg IVPUSH Q6H PRN PRN Reason: PAIN Nystatin (Mycostatin Cream -) 1 applic TP BID [facility] Last Admin: 06/10/17 23:04 Dose: 1 applic Pantoprazole Sodium (Protonix Packets For Oral Suspension -) 40 mg PEG DAILY [facility] - Objective Vital Signs: Vital Signs Temperature 99.7 F H 06/11/17 09:20 Pulse Rate 108 H 06/11/17 09:20 Respiratory Rate 24 06/11/17 09:20 Blood Pressure 139/90 06/11/17 09:20 O2 Sat by Pulse Oximetry (%) 100 06/11/17 06:51 Constitutional: Yes: No Distress, Calm Cardiovascular: Yes: Regular Rate and Rhythm Respiratory: Yes: Mechanically Ventilated, Other (trach) Gastrointestinal: Yes: Normal Bowel Sounds, Soft, Other (peg in place) Musculoskeletal: Yes: WNL Extremities: Yes: WNL Neurological: Yes: Alert, Oriented Psychiatric: Yes: Alert, Oriented Labs: CBC, BMP 06/11/17 07:20 06/11/17 07:20 INR, PTT INR 1.10 (0.82-1.09) 06/09/17 06:00 Assessment/Plan Problem List - Problems (1) UTI (urinary tract infection) Code(s): N39.0 - URINARY TRACT INFECTION, SITE NOT SPECIFIED (2) Dementia Code(s): F03.90 - UNSPECIFIED DEMENTIA WITHOUT BEHAVIORAL DISTURBANCE (3) Pancytopenia Code(s): D61.818 - OTHER PANCYTOPENIA (4) CHF (congestive heart failure) Code(s): I50.9 - HEART FAILURE, UNSPECIFIED Qualifiers: Congestive heart failure type: unspecified congestive heart failure type Congestive heart failure chronicity: chronic Qualified Code(s): I50.9 - Heart failure, unspecified (5) HTN (hypertension) Code(s): I10 - ESSENTIAL (PRIMARY) HYPERTENSION (6) Hypothyroidism Code(s): E03.9 - HYPOTHYROIDISM, UNSPECIFIED Aspiration pneumonia Code(s): J69.0 - PNEUMONITIS DUE TO INHALATION OF FOOD AND VOMIT lactic acidosis plan conitnue zosyn stable post trach continue nutrition monitor rest as per icu and primary team will plan on deescalating abx by the weekend and monitor cc time 40 min
[2017-06-11] MEDS: CHLORHEXIDINE GLUCONATE 0.12% 15ML CUP MM SCH ×2 (09:51→21:28)
[2017-06-11] MEDS: NYSTATIN 100,000 UNIT/GM TOPICAL CREAM 15 GM TUBE TP SCH ×2 (09:51→21:29)
[2017-06-11 11:10] LABS: ALBUMIN 1.8 g/dl (3.4-5.0); ANION GAP 11 (8-16); BILIRUBIN,TOTAL 0.4 mg/dL (0.2-1.0); CALCIUM 7.7 mg/dL (8.5-10.1); CO2 24 mmol/L (21-32); CREATININE 0.5 mg/dL (0.55-1.02); GLUCOSE,RANDOM 127 mg/dL (74-106); SGOT/AST 17 U/L (15-37); SGPT/ALT 25 U/L (12-78); TOT PROT 5.3 g/dl (6.4-8.2)
[2017-06-11 11:11] LABS: ALK PHOS 346 U/L (45-117)
[2017-06-11 11:19] LABS: MCH 32.7 pg (25.7-33.7); MCHC 34.4 g/dl (32.0-36.0); PLATELET COUNT 60 K/MM3 (134-434); RDW 15.9 % (11.6-15.6); WHITE BLOOD COUNT 2.2 K/mm3 (4.0-10.0)
--- NOTE | 2017-06-11 12:28 | PN ---
Progress Note, Physician Chief Complaint: Unable to obtain - Current Medication List Current Medications: Active Medications Amino Acids (Prosource No Carb Liquid Pkt) 30 ml PO BID@0800,1730 [facility] Last Admin: 06/11/17 08:04 Dose: 30 ml Atorvastatin Calcium (Lipitor -) 20 mg PO HS [facility] Last Admin: 06/10/17 23:03 Dose: 20 mg Chlorhexidine Gluconate (Peridex -) 15 ml MM BID [facility] Last Admin: 06/11/17 09:51 Dose: 15 ml Diltiazem HCl (Cardizem -) 30 mg PEG TID [facility] Last Admin: 06/11/17 05:22 Dose: 30 mg Piperacillin Sod/Tazobactam (Sod 3.375 gm/ Dextrose) 50 mls @ 100 mls/hr IVPB Q8H-IV JOCELYNE PRN Reason: Protocol Last Admin: 06/11/17 09:49 Dose: 100 mls/hr Levothyroxine Sodium (Synthroid -) 100 mcg PEG DAILY@0700 [facility] Last Admin: 06/11/17 06:25 Dose: 100 mcg Midazolam HCl (Versed -) 2 mg IVPUSH Q6H PRN PRN Reason: AGITATION Morphine Sulfate (Morphine Sulfate) 2 mg IVPUSH Q6H PRN PRN Reason: PAIN Nystatin (Mycostatin Cream -) 1 applic TP BID [facility] Last Admin: 06/11/17 09:51 Dose: 1 applic Pantoprazole Sodium (Protonix Packets For Oral Suspension -) 40 mg PEG DAILY [facility] Last Admin: 06/11/17 09:48 Dose: 40 mg - Objective Vital Signs: Vital Signs Temperature 37.6 C H 06/11/17 09:20 Pulse Rate 108 H 06/11/17 09:20 Respiratory Rate 25 H 06/11/17 09:57 Blood Pressure 139/90 06/11/17 09:20 O2 Sat by Pulse Oximetry (%) 98 06/11/17 10:00 Constitutional: Yes: No Distress, Calm Cardiovascular: Yes: Regular Rate and Rhythm. No: Gallop, Murmur, Rub Respiratory: Yes: Regular, Mechanically Ventilated, Rhonchi. No: CTA Bilaterally, Rales, Wheezes Gastrointestinal: Yes: Normal Bowel Sounds, Soft. No: Distention, Tenderness Extremities: Yes: WNL Edema: No Labs: CBC, BMP 06/11/17 10:08 06/11/17 10:08 INR, PTT INR 1.10 (0.82-1.09) 06/09/17 06:00 Problem List - Problems (1) CHF (congestive heart failure) Code(s): I50.9 - HEART FAILURE, UNSPECIFIED Qualifiers: Congestive heart failure type: unspecified congestive heart failure type Congestive heart failure chronicity: chronic Qualified Code(s): I50.9 - Heart failure, unspecified (2) Hypothyroidism Code(s): E03.9 - HYPOTHYROIDISM, UNSPECIFIED Qualifiers: Hypothyroidism type: unspecified Qualified Code(s): E03.9 - Hypothyroidism , unspecified (3) HTN (hypertension) Code(s): I10 - ESSENTIAL (PRIMARY) HYPERTENSION (4) Pancytopenia Code(s): D61.818 - OTHER PANCYTOPENIA (5) UTI (urinary tract infection) Code(s): N39.0 - URINARY TRACT INFECTION, SITE NOT SPECIFIED (6) Dementia Code(s): F03.90 - UNSPECIFIED DEMENTIA WITHOUT BEHAVIORAL DISTURBANCE Qualifiers: Dementia type: unspecified type Dementia behavioral disturbance: without behavioral disturbance Qualified Code(s): F03.90 - Unspecified dementia without behavioral disturbance (7) Aspiration pneumonia Code(s): J69.0 - PNEUMONITIS DUE TO INHALATION OF FOOD AND VOMIT Qualifiers: Aspiration pneumonia type: unspecified (8) Anemia Code(s): D64.9 - ANEMIA, UNSPECIFIED Qualifiers: Anemia type: other cause Other causes of anemia: acute posthemorrhagic Qualified Code(s): D62 - Acute posthemorrhagic anemia (9) Acute respiratory failure Code(s): J96.00 - ACUTE RESPIRATORY FAILURE, UNSP W HYPOXIA OR HYPERCAPNIA (10) Septic shock Code(s): A41.9 - SEPSIS, UNSPECIFIED ORGANISM; R65.21 - SEVERE SEPSIS WITH SEPTIC SHOCK Assessment/Plan (1) Acute respiratory failure -s/p trach placement -continue mechanical ventilation -respiratory following -wean vent as tolerated (2) Elevated troponin -stress induced -cardiology following but no further treatment needed (3) Seizure -resolved -no need for seizure treatment -appreciate neurology assistance (4) CHF exacerbation -stable -no need for diuresis currently (5) Pneumonia with septic shock -concern for aspiration -ID to de-escalate zosyn -monitor off of broad spectrum antibiotics -plan for discharge Wednesday (6) UTI -treated (7) Hyponatremia -appreciate nephrology assistance -stable (8) Hypothyroid -continue levothyroxine (9) Anemia -continues to improve
--- NOTE | 2017-06-11 14:43 | PN ---
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 Briefly, patient initially presented for frequent falls and altered mental status with overall physical and cognitive decline over the last 6 months prior to admission. CT head: w/ central atrophy and mild microvascular ischemic gliosis. Labs significant for hypothyroid, leukopenia and pyuria, she was started on ceftriaxone. Neurology was consulted. Endocrine consulted. Mental status had some improvement while on the floor. Speech and swallow eval done c/ f aspiration. ABX were switch to zosyn given increased secretions and c/f pneumonia. Plans made for potential PEG placement. Patient continued to have waxing and waning mental status. Patient had notable right facial droop and NCHCT done w/o acute pathology. She completed a course of ABX. GI was consulted for c/f GIB. Heme also consulted given anemia and leukopenia and w/u sent: flow- -0.2% blasts, clonal B cells questionable nonspecific immunophenotype. On day of ICU admission patient had witnessed aspiration event. DELIVERY DRIVER/SUPERVISOR was called in PM for hypoxia and tachycardia. Patient transferred to ICU for hypoxic respiratory failure. Patient intubated. ABG 7.3/54/242 (ACVC: 20/400/100 +5). Patient given adenosine for SVT w/ underlying sinus rhythm. Patient continued to have RVR and was given lopressor 5mg x1 w/ HR improved to 120s. Family called but were unavailable. - History Source - Current Medication List Current Medications: Active Medications Amino Acids (Prosource No Carb Liquid Pkt) 30 ml PO BID@0800,1730 [facility] Last Admin: 06/11/17 08:04 Dose: 30 ml Atorvastatin Calcium (Lipitor -) 20 mg PO HS [facility] Last Admin: 06/10/17 23:03 Dose: 20 mg Chlorhexidine Gluconate (Peridex -) 15 ml MM BID [facility] Last Admin: 06/11/17 09:51 Dose: 15 ml Diltiazem HCl (Cardizem -) 30 mg PEG TID [facility] Last Admin: 06/11/17 14:16 Dose: 30 mg Piperacillin Sod/Tazobactam (Sod 3.375 gm/ Dextrose) 50 mls @ 100 mls/hr IVPB Q8H-IV JOCELYNE PRN Reason: Protocol Last Admin: 06/11/17 09:49 Dose: 100 mls/hr Influenza Virus Vaccine Quadrival (Flulaval Quad [id number]) 60 mcg IM .ONCE ONE Stop: 06/11/17 14:13 Levothyroxine Sodium (Synthroid -) 100 mcg PEG DAILY@0700 [facility] Last Admin: 06/11/17 06:25 Dose: 100 mcg Midazolam HCl (Versed -) 2 mg IVPUSH Q6H PRN PRN Reason: AGITATION Morphine Sulfate (Morphine Sulfate) 2 mg IVPUSH Q6H PRN PRN Reason: PAIN Nystatin (Mycostatin Cream -) 1 applic TP BID [facility] Last Admin: 06/11/17 09:51 Dose: 1 applic Pantoprazole Sodium (Protonix Packets For Oral Suspension -) 40 mg PEG DAILY [facility] Last Admin: 06/11/17 09:48 Dose: 40 mg - Objective Vital Signs: Vital Signs Temperature 99.7 F H 06/11/17 09:20 Pulse Rate 117 H 06/11/17 14:20 Respiratory Rate 21 06/11/17 14:19 Blood Pressure 144/86 06/11/17 14:20 O2 Sat by Pulse Oximetry (%) 98 06/11/17 14:20 Eyes: Yes: WNL, Conjunctiva Clear, EOM Intact HENT: Yes: WNL, Atraumatic, Normocephalic Neck: Yes: WNL, Supple, Trachea Midline Cardiovascular: Yes: WNL, Regular Rate and Rhythm Respiratory: Yes: Diminished, Mechanically Ventilated Gastrointestinal: Yes: WNL, Normal Bowel Sounds Genitourinary: Yes: WNL Musculoskeletal: Yes: WNL Edema: Yes Integumentary: Yes: WNL Neurological: Yes: WNL, Alert, Oriented ...Motor Strength: WNL Psychiatric: Yes: WNL Labs: CBC, BMP 06/11/17 10:08 06/11/17 10:08 INR, PTT INR 1.10 (0.82-1.09) 06/09/17 06:00 Problem List - Problems (1) CHF (congestive heart failure) Code(s): I50.9 - HEART FAILURE, UNSPECIFIED Qualifiers: Congestive heart failure type: unspecified congestive heart failure type Congestive heart failure chronicity: chronic Qualified Code(s): I50.9 - Heart failure, unspecified (2) Smoking addiction Code(s): F17.200 - NICOTINE DEPENDENCE, UNSPECIFIED, UNCOMPLICATED (3) Smoking Code(s): F17.200 - NICOTINE DEPENDENCE, UNSPECIFIED, UNCOMPLICATED (4) Aortic stenosis Code(s): I35.0 - NONRHEUMATIC AORTIC (VALVE) STENOSIS (5) Osteoporosis Code(s): M81.0 - AGE-RELATED OSTEOPOROSIS W/O CURRENT PATHOLOGICAL FRACTURE (6) Hypothyroidism Code(s): E03.9 - HYPOTHYROIDISM, UNSPECIFIED Qualifiers: Hypothyroidism type: unspecified Qualified Code(s): E03.9 - Hypothyroidism , unspecified (7) HTN (hypertension) Code(s): I10 - ESSENTIAL (PRIMARY) HYPERTENSION (8) Macrocytosis Code(s): D75.89 - OTHER SPECIFIED DISEASES OF BLOOD AND BLOOD-FORMING ORGANS (9) Paroxysmal SVT (supraventricular tachycardia) Code(s): I47.1 - SUPRAVENTRICULAR TACHYCARDIA (10) Pancytopenia Code(s): D61.818 - OTHER PANCYTOPENIA (11) Altered mental status, unspecified Code(s): R41.82 - ALTERED MENTAL STATUS, UNSPECIFIED (12) UTI (urinary tract infection) Code(s): N39.0 - URINARY TRACT INFECTION, SITE NOT SPECIFIED (13) Dementia Code(s): F03.90 - UNSPECIFIED DEMENTIA WITHOUT BEHAVIORAL DISTURBANCE Qualifiers: Dementia type: unspecified type Dementia behavioral disturbance: without behavioral disturbance Qualified Code(s): F03.90 - Unspecified dementia without behavioral disturbance (14) Fever Code(s): R50.9 - FEVER, UNSPECIFIED (15) Aspiration pneumonia Code(s): J69.0 - PNEUMONITIS DUE TO INHALATION OF FOOD AND VOMIT Qualifiers: Aspiration pneumonia type: unspecified (16) Anemia Code(s): D64.9 - ANEMIA, UNSPECIFIED Qualifiers: Anemia type: other cause Other causes of anemia: acute posthemorrhagic Qualified Code(s): D62 - Acute posthemorrhagic anemia (17) Acute respiratory failure with hypoxia and hypercapnia Code(s): J96.01 - ACUTE RESPIRATORY FAILURE WITH HYPOXIA; J96.02 - ACUTE RESPIRATORY FAILURE WITH HYPERCAPNIA (18) Shock Code(s): R57.9 - SHOCK, UNSPECIFIED Assessment/Plan Assessment/Plan Recurrent Acute Hypoxic Respiratory Failure: PNA vs CHF? s/p tracheostomy severe anemia CVA Szs UTI LV Systolic Dysfunction Hyponatremia Dementia Pancytopenia REC: -cont abx as per PMD, vent support -hold on further diuresis for now. hct improved after transfussion
--- NOTE | 2017-06-11 15:27 | PN ---
Progress Note (short form) - Note Progress Note: PULMONARY Trach/vent Gen: appears chronically ill/roper Heart: tachycardic, regular Lung: scattered rhonchi, wheezes Abd: soft, nontender, rectal tube,peg Ext: +UE edema labs/meds/notes/images reviewed A/P s/p Acute Respiratory Failure Volume overload Pneumonia UTI s/p Septic Shock Dementia - continue current vent settings - aspiration precautions - taper off steroids - O2 to keep SpO2 >90% - DVT prophylaxis - prognosis guarded - wean as tolerated Toni BUNDY MD
[2017-06-11] MEDS ORDERED: FLU VACCINE QUAD 60 MCG/0.5 ML (MDV 17-18) IM ONE (15:30)
--- NOTE | 2017-06-11 17:38 | PN ---
Progress Note, Physician History of Present Illness: Pt seen and examined at bedside. She is now in the medical rider. - Current Medication List Current Medications: Active Medications Amino Acids (Prosource No Carb Liquid Pkt) 30 ml PO BID@0800,1730 [facility] Last Admin: 06/11/17 17:20 Dose: 30 ml Atorvastatin Calcium (Lipitor -) 20 mg PO HS [facility] Last Admin: 06/10/17 23:03 Dose: 20 mg Chlorhexidine Gluconate (Peridex -) 15 ml MM BID [facility] Last Admin: 06/11/17 09:51 Dose: 15 ml Diltiazem HCl (Cardizem -) 30 mg PEG TID [facility] Last Admin: 06/11/17 14:16 Dose: 30 mg Piperacillin Sod/Tazobactam (Sod 3.375 gm/ Dextrose) 50 mls @ 100 mls/hr IVPB Q8H-IV JOCELYNE PRN Reason: Protocol Last Admin: 06/11/17 17:20 Dose: 100 mls/hr Levothyroxine Sodium (Synthroid -) 100 mcg PEG DAILY@0700 [facility] Last Admin: 06/11/17 06:25 Dose: 100 mcg Midazolam HCl (Versed -) 2 mg IVPUSH Q6H PRN PRN Reason: AGITATION Morphine Sulfate (Morphine Sulfate) 2 mg IVPUSH Q6H PRN PRN Reason: PAIN Nystatin (Mycostatin Cream -) 1 applic TP BID [facility] Last Admin: 06/11/17 09:51 Dose: 1 applic Pantoprazole Sodium (Protonix Packets For Oral Suspension -) 40 mg PEG DAILY [facility] Last Admin: 06/11/17 09:48 Dose: 40 mg - Objective Vital Signs: Vital Signs Temperature 99.4 F 06/11/17 14:09 Pulse Rate 117 H 06/11/17 14:20 Respiratory Rate 21 06/11/17 14:19 Blood Pressure 144/86 06/11/17 14:20 O2 Sat by Pulse Oximetry (%) 98 06/11/17 14:20 Constitutional: Yes: Calm Eyes: Yes: Conjunctiva Clear HENT: Yes: Other (trache) Cardiovascular: Yes: S1, S2 Respiratory: Yes: Mechanically Ventilated Gastrointestinal: Yes: Soft, Other (peg) Genitourinary: Yes: Incontinence Musculoskeletal: Yes: Muscle Weakness Edema: Yes Edema: LUE: Trace, RUE: Trace Labs: CBC, BMP 06/11/17 10:08 06/11/17 10:08 INR, PTT INR 1.10 (0.82-1.09) 06/09/17 06:00 Problem List - Problems (1) Hyponatremia Code(s): E87.1 - HYPO-OSMOLALITY AND HYPONATREMIA (2) Acute on chronic systolic (congestive) heart failure Code(s): I50.23 - ACUTE ON CHRONIC SYSTOLIC (CONGESTIVE) HEART FAILURE (3) Acute respiratory failure Code(s): J96.00 - ACUTE RESPIRATORY FAILURE, UNSP W HYPOXIA OR HYPERCAPNIA (4) CVA (cerebral vascular accident) Code(s): I63.9 - CEREBRAL INFARCTION, UNSPECIFIED (5) Pancytopenia Code(s): D61.818 - OTHER PANCYTOPENIA (6) CHF (congestive heart failure) Code(s): I50.9 - HEART FAILURE, UNSPECIFIED Qualifiers: Congestive heart failure type: unspecified congestive heart failure type Congestive heart failure chronicity: chronic Qualified Code(s): I50.9 - Heart failure, unspecified (7) HTN (hypertension) Code(s): I10 - ESSENTIAL (PRIMARY) HYPERTENSION Assessment/Plan Current Medications Generic Name Dose Route Start Last Admin Trade Name Freq PRN Reason Stop Dose Admin Amino Acids 30 ml 06/11/17 08:00 06/11/17 17:20 Prosource No Carb Liquid Pkt PO 30 ml BID@0800,1730 JOCELYNE Administration Atorvastatin Calcium 20 mg 06/10/17 22:00 06/10/17 23:03 Lipitor - PO 20 mg HS JOCELYNE Administration Chlorhexidine Gluconate 15 ml 06/10/17 22:00 06/11/17 09:51 Peridex - MM 15 ml BID JOCELYNE Administration Diltiazem HCl 30 mg 06/10/17 22:00 06/11/17 14:16 Cardizem - PEG 30 mg TID JOCELYNE Administration Piperacillin Sod/Tazobactam 50 mls @ 100 mls/hr 06/11/17 02:00 06/11/17 17:20 Sod 3.375 gm/ Dextrose IVPB 100 mls/hr Q8H-IV JOCELYNE Administration Protocol Levothyroxine Sodium 100 mcg 06/11/17 07:00 06/11/17 06:25 Synthroid - PEG 100 mcg DAILY@0700 JOCELYNE Administration Midazolam HCl 2 mg 06/10/17 19:02 Versed - IVPUSH Q6H PRN AGITATION Morphine Sulfate 2 mg 06/10/17 19:02 Morphine Sulfate IVPUSH Q6H PRN PAIN Nystatin 1 applic 06/10/17 22:00 06/11/17 09:51 Mycostatin Cream - TP 1 applic BID JOCELYNE Administration Pantoprazole Sodium 40 mg 06/11/17 10:00 06/11/17 09:48 Protonix Packets For Oral Suspension - PEG 40 mg DAILY JOCELYNE Administration Impression 1. hyponatremia 2. pancytopenia 3. resp failure requiring intubation 4. CHF 5. hematuria 6. HTN 7. UTI 8. dementia 9. volume overload 10. hypothyroidism 11. seizure 12. PNA Plan - sodium is improving - cont vent support - cont tube feeds - evaluate volume status daily - lasix on hold - will follow Dr Angeles
[2017-06-11] MEDS: ATORVASTATIN CA 20 MG TABLET (FP) PO SCH (21:28)
[2017-06-12] MEDS: PIPERACILLIN/TAZOB 3.375 GM 3.375 GM in DEXTROSE 5%-WATER - 50 ML IVPB SCH ×3 (02:21→19:07)
[2017-06-12] MEDS: dilTIAZem HCL 30 MG TABLET (FP) PEG SCH ×3 (06:28→21:49)
[2017-06-12] MEDS: LEVOTHYROXINE NA 100 MCG TABLET (FP) PEG SCH (06:28)
[2017-06-12 07:39] LABS: ANION GAP 11 (8-16); CALCIUM 8.2 mg/dL (8.5-10.1); CO2 25 mmol/L (21-32); CREATININE 0.5 mg/dL (0.55-1.02); GLUCOSE,RANDOM 128 mg/dL (74-106); MAGNESIUM 1.7 mg/dL (1.8-2.4); PHOSPHOROUS 2.9 mg/dL (2.5-4.9)
[2017-06-12] MEDS: AMINO ACIDS/PROTEIN HYDROLYS 30 ML LIQUID.PKT PO SCH ×2 (08:08→16:33)
--- NOTE | 2017-06-12 09:18 | PN ---
Progress Note, Physician History of Present Illness: This is a 82 yo woman PMH: dementia, hypothyroid, HTN, active tobacco, CAD s/p sent, CHF presenting to ICU after [employer] for hypoxic respiratory failure, SVT (HR 180s) and shock. Briefly, patient initially presented for frequent falls and altered mental status with overall physical and cognitive decline over the last 6 months prior to admission. CT head: w/ central atrophy and mild microvascular ischemic gliosis. Labs significant for hypothyroid, leukopenia and pyuria, she was started on ceftriaxone. Neurology was consulted. Endocrine consulted. Mental status had some improvement while on the floor. Speech and swallow eval done c/ f aspiration. ABX were switch to zosyn given increased secretions and c/f pneumonia. Plans made for potential PEG placement. Patient continued to have waxing and waning mental status. Patient had notable right facial droop and NCHCT done w/o acute pathology. She completed a course of ABX. GI was consulted for c/f GIB. Heme also consulted given anemia and leukopenia and w/u sent: flow- -0.2% blasts, clonal B cells questionable nonspecific immunophenotype. On day of ICU admission patient had witnessed aspiration event. [employer] was called in PM for hypoxia and tachycardia. Patient transferred to ICU for hypoxic respiratory failure. Patient intubated. ABG 7.3/54/242 (ACVC: 20/400/100 +5). Patient given adenosine for SVT w/ underlying sinus rhythm. Patient continued to have RVR and was given lopressor 5mg x1 w/ HR improved to 120s. Family called but were unavailable. - History Source - Current Medication List Current Medications: Active Medications Amino Acids (Prosource No Carb Liquid Pkt) 30 ml PO BID@0800,1730 [facility] Last Admin: 06/12/17 08:08 Dose: 30 ml Atorvastatin Calcium (Lipitor -) 20 mg PO HS [facility] Last Admin: 06/11/17 21:28 Dose: 20 mg Chlorhexidine Gluconate (Peridex -) 15 ml MM BID [facility] Last Admin: 06/11/17 21:28 Dose: 15 ml Diltiazem HCl (Cardizem -) 30 mg PEG TID [facility] Last Admin: 06/12/17 06:28 Dose: 30 mg Piperacillin Sod/Tazobactam (Sod 3.375 gm/ Dextrose) 50 mls @ 100 mls/hr IVPB Q8H-IV JOCELYNE PRN Reason: Protocol Last Admin: 06/12/17 02:21 Dose: 100 mls/hr Levothyroxine Sodium (Synthroid -) 100 mcg PEG DAILY@0700 [facility] Last Admin: 06/12/17 06:28 Dose: 100 mcg Midazolam HCl (Versed -) 2 mg IVPUSH Q6H PRN PRN Reason: AGITATION Morphine Sulfate (Morphine Sulfate) 2 mg IVPUSH Q6H PRN PRN Reason: PAIN Nystatin (Mycostatin Cream -) 1 applic TP BID [facility] Last Admin: 06/11/17 21:29 Dose: 1 applic Pantoprazole Sodium (Protonix Packets For Oral Suspension -) 40 mg PEG DAILY [facility] Last Admin: 06/11/17 09:48 Dose: 40 mg - Objective Vital Signs: Vital Signs Temperature 99.3 F 06/12/17 08:27 Pulse Rate 108 H 06/12/17 08:27 Respiratory Rate 19 06/12/17 08:28 Blood Pressure 156/84 06/12/17 08:27 O2 Sat by Pulse Oximetry (%) 95 06/12/17 08:28 Eyes: Yes: WNL, Conjunctiva Clear, EOM Intact HENT: Yes: WNL, Atraumatic, Normocephalic Neck: Yes: WNL, Supple, Trachea Midline Cardiovascular: Yes: WNL, Regular Rate and Rhythm Respiratory: Yes: Diminished, Mechanically Ventilated Gastrointestinal: Yes: WNL, Normal Bowel Sounds Genitourinary: Yes: WNL Musculoskeletal: Yes: WNL Extremities: Yes: WNL Edema: Yes Integumentary: Yes: WNL ...Motor Strength: WNL Psychiatric: Yes: WNL Labs: CBC, BMP 06/12/17 06:00 06/12/17 06:00 INR, PTT INR 1.10 (0.82-1.09) 06/09/17 06:00 Problem List - Problems (1) CHF (congestive heart failure) Code(s): I50.9 - HEART FAILURE, UNSPECIFIED Qualifiers: Congestive heart failure type: unspecified congestive heart failure type Congestive heart failure chronicity: chronic Qualified Code(s): I50.9 - Heart failure, unspecified (2) Smoking addiction Code(s): F17.200 - NICOTINE DEPENDENCE, UNSPECIFIED, UNCOMPLICATED (3) Smoking Code(s): F17.200 - NICOTINE DEPENDENCE, UNSPECIFIED, UNCOMPLICATED (4) Aortic stenosis Code(s): I35.0 - NONRHEUMATIC AORTIC (VALVE) STENOSIS (5) Osteoporosis Code(s): M81.0 - AGE-RELATED OSTEOPOROSIS W/O CURRENT PATHOLOGICAL FRACTURE (6) Hypothyroidism Code(s): E03.9 - HYPOTHYROIDISM, UNSPECIFIED Qualifiers: Hypothyroidism type: unspecified Qualified Code(s): E03.9 - Hypothyroidism , unspecified (7) HTN (hypertension) Code(s): I10 - ESSENTIAL (PRIMARY) HYPERTENSION (8) Macrocytosis Code(s): D75.89 - OTHER SPECIFIED DISEASES OF BLOOD AND BLOOD-FORMING ORGANS (9) Paroxysmal SVT (supraventricular tachycardia) Code(s): I47.1 - SUPRAVENTRICULAR TACHYCARDIA (10) Pancytopenia Code(s): D61.818 - OTHER PANCYTOPENIA (11) Altered mental status, unspecified Code(s): R41.82 - ALTERED MENTAL STATUS, UNSPECIFIED (12) UTI (urinary tract infection) Code(s): N39.0 - URINARY TRACT INFECTION, SITE NOT SPECIFIED (13) Dementia Code(s): F03.90 - UNSPECIFIED DEMENTIA WITHOUT BEHAVIORAL DISTURBANCE Qualifiers: Dementia type: unspecified type Dementia behavioral disturbance: without behavioral disturbance Qualified Code(s): F03.90 - Unspecified dementia without behavioral disturbance (14) Fever Code(s): R50.9 - FEVER, UNSPECIFIED (15) Aspiration pneumonia Code(s): J69.0 - PNEUMONITIS DUE TO INHALATION OF FOOD AND VOMIT Qualifiers: Aspiration pneumonia type: unspecified (16) Anemia Code(s): D64.9 - ANEMIA, UNSPECIFIED Qualifiers: Anemia type: other cause Other causes of anemia: acute posthemorrhagic Qualified Code(s): D62 - Acute posthemorrhagic anemia (17) Acute respiratory failure with hypoxia and hypercapnia Code(s): J96.01 - ACUTE RESPIRATORY FAILURE WITH HYPOXIA; J96.02 - ACUTE RESPIRATORY FAILURE WITH HYPERCAPNIA (18) Shock Code(s): R57.9 - SHOCK, UNSPECIFIED Assessment/Plan Assessment/Plan Recurrent Acute Hypoxic Respiratory Failure: PNA vs CHF? s/p tracheostomy ventilator dependent severe anemia CVA Szs UTI LV Systolic Dysfunction Hyponatremia Dementia Pancytopenia REC: -cont abx as per PMD, vent support -hold on further diuresis for now. hct improved after transfussion
[2017-06-12 09:42] LABS: BASOPHIL 1.1 % (0-2.0); EOSINOPHIL 3.4 % (0-4.5); MCH 33.2 pg (25.7-33.7); MEAN CELL VOLUME 94.9 fl (80-96); MEAN PLT VOLUME 7.2 fl (7.5-11.1); NEUTROPHILS 60.4 % (42.8-82.8); PLATELET COUNT 67 K/MM3 (134-434); RDW 15.8 % (11.6-15.6); WHITE BLOOD COUNT 2.4 K/mm3 (4.0-10.0)
[2017-06-12] MEDS: NYSTATIN 100,000 UNIT/GM TOPICAL CREAM 15 GM TUBE TP SCH ×2 (11:00→21:49)
[2017-06-12] MEDS: PANTOPRAZOLE SOD 40 MG SUSPENSION PACKET PEG SCH (11:00)
[2017-06-12] MEDS: CHLORHEXIDINE GLUCONATE 0.12% 15ML CUP MM SCH ×2 (11:00→21:51)
[2017-06-12] MEDS ORDERED: PT OWN MED DRAWER 7, Y5N ONE ×3 (11:45→19:05)
--- NOTE | 2017-06-12 13:56 | PN ---
Progress Note (short form) - Note Progress Note: PULMONARY Trach/vent/14/350/30/5 A/C Gen: appears chronically ill/roper Heart: tachycardic, regular Lung: scattered rhonchi, wheezes Abd: soft, nontender, rectal tube,peg Ext: +UE edema labs/meds/notes/images reviewed A/P s/p Acute Respiratory Failure Volume overload Pneumonia UTI s/p Septic Shock Dementia - continue current vent settings - aspiration precautions - O2 to keep SpO2 >90% - DVT prophylaxis - prognosis guarded - wean as tolerated Toni BUNDY MD
--- NOTE | 2017-06-12 13:56 | PN ---
Progress Note, Physician Chief Complaint: Sedated on Ventilator, low H/h History of Present Illness: 82 yrs old admitted with frequent fall H/O HTN, CAD s/p stent, Hypothyroidism, admitted with fall prolonged hospitalization developed respiratory failure, intibayed on respirator multiple + Cutures. - Current Medication List Current Medications: Active Medications Amino Acids (Prosource No Carb Liquid Pkt) 30 ml PO BID@0800,1730 [facility] Last Admin: 06/12/17 08:08 Dose: 30 ml Atorvastatin Calcium (Lipitor -) 20 mg PO HS [facility] Last Admin: 06/11/17 21:28 Dose: 20 mg Chlorhexidine Gluconate (Peridex -) 15 ml MM BID [facility] Last Admin: 06/12/17 11:00 Dose: 15 ml Diltiazem HCl (Cardizem -) 30 mg PEG TID [facility] Last Admin: 06/12/17 06:28 Dose: 30 mg Piperacillin Sod/Tazobactam (Sod 3.375 gm/ Dextrose) 50 mls @ 100 mls/hr IVPB Q8H-IV JOCELYNE PRN Reason: Protocol Last Admin: 06/12/17 11:00 Dose: 100 mls/hr Levothyroxine Sodium (Synthroid -) 100 mcg PEG DAILY@0700 [facility] Last Admin: 06/12/17 06:28 Dose: 100 mcg Midazolam HCl (Versed -) 2 mg IVPUSH Q6H PRN PRN Reason: AGITATION Morphine Sulfate (Morphine Sulfate) 2 mg IVPUSH Q6H PRN PRN Reason: PAIN Nystatin (Mycostatin Cream -) 1 applic TP BID [facility] Last Admin: 06/12/17 11:00 Dose: 1 applic Pantoprazole Sodium (Protonix Packets For Oral Suspension -) 40 mg PEG DAILY [facility] Last Admin: 06/12/17 11:00 Dose: 40 mg - Objective Vital Signs: Vital Signs Temperature 99.3 F 06/12/17 08:27 Pulse Rate 108 H 06/12/17 08:27 Respiratory Rate 20 06/12/17 10:12 Blood Pressure 156/84 06/12/17 08:27 O2 Sat by Pulse Oximetry (%) 95 06/12/17 08:28 Elderly F Vent dependent HEENT: Trach at place, , Mm dry + anemia, PERRLA EOMI NECK: No JVD No Bruit CHEST: B/L Crepts CVs: S1S2 Irregular NILO at base ABD: PRG and rectal tube No distention, non tender Bs + EXT: + edema feet, no calf tenderness Pulses + [employer] 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 Code(s): J69.0 - PNEUMONITIS DUE TO INHALATION OF FOOD AND VOMIT Qualifiers: Aspiration pneumonia type: unspecified (3) Anemia Assessment/Plan: H/H stable. Code(s): D64.9 - ANEMIA, UNSPECIFIED Qualifiers: Anemia type: other cause Other causes of anemia: acute posthemorrhagic Qualified Code(s): D62 - Acute posthemorrhagic anemia (4) Acute respiratory failure with hypoxia and hypercapnia Assessment/Plan: On ventilators saturating well Vent management as per critical care. Code(s): J96.01 - ACUTE RESPIRATORY FAILURE WITH HYPOXIA; J96.02 - ACUTE RESPIRATORY FAILURE WITH HYPERCAPNIA (5) Dementia Assessment/Plan: Chronic no active issue, Code(s): F03.90 - UNSPECIFIED DEMENTIA WITHOUT BEHAVIORAL DISTURBANCE Qualifiers: Dementia type: unspecified type Dementia behavioral disturbance: without behavioral disturbance Qualified Code(s): F03.90 - Unspecified dementia without behavioral disturbance
--- NOTE | 2017-06-12 16:57 | PN ---
Progress Note, Physician History of Present Illness: no specific change non verbal - Current Medication List Current Medications: Active Medications Amino Acids (Prosource No Carb Liquid Pkt) 30 ml PO BID@0800,1730 [facility] Last Admin: 06/12/17 16:33 Dose: 30 ml Atorvastatin Calcium (Lipitor -) 20 mg PO HS [facility] Last Admin: 06/11/17 21:28 Dose: 20 mg Chlorhexidine Gluconate (Peridex -) 15 ml MM BID [facility] Last Admin: 06/12/17 11:00 Dose: 15 ml Diltiazem HCl (Cardizem -) 30 mg PEG TID [facility] Last Admin: 06/12/17 13:54 Dose: 30 mg Piperacillin Sod/Tazobactam (Sod 3.375 gm/ Dextrose) 50 mls @ 100 mls/hr IVPB Q8H-IV JOCELYNE PRN Reason: Protocol Last Admin: 06/12/17 11:00 Dose: 100 mls/hr Levothyroxine Sodium (Synthroid -) 100 mcg PEG DAILY@0700 [facility] Last Admin: 06/12/17 06:28 Dose: 100 mcg Midazolam HCl (Versed -) 2 mg IVPUSH Q6H PRN PRN Reason: AGITATION Morphine Sulfate (Morphine Sulfate) 2 mg IVPUSH Q6H PRN PRN Reason: PAIN Nystatin (Mycostatin Cream -) 1 applic TP BID [facility] Last Admin: 06/12/17 11:00 Dose: 1 applic Pantoprazole Sodium (Protonix Packets For Oral Suspension -) 40 mg PEG DAILY [facility] Last Admin: 06/12/17 11:00 Dose: 40 mg - Objective Vital Signs: Vital Signs Temperature 99.3 F 06/12/17 16:00 Pulse Rate 113 H 06/12/17 14:00 Respiratory Rate 19 06/12/17 14:00 Blood Pressure 145/81 06/12/17 14:00 O2 Sat by Pulse Oximetry (%) 95 06/12/17 08:28 Constitutional: Yes: No Distress Cardiovascular: Yes: Regular Rate and Rhythm, Tachycardia Respiratory: Yes: Mechanically Ventilated, Other (trach in place) Musculoskeletal: Yes: WNL Extremities: Yes: WNL Labs: CBC, BMP 06/12/17 09:20 06/12/17 06:00 INR, PTT INR 1.10 (0.82-1.09) 06/09/17 06:00 Assessment/Plan Problem List - Problems (1) UTI (urinary tract infection) Code(s): N39.0 - URINARY TRACT INFECTION, SITE NOT SPECIFIED (2) Dementia Code(s): F03.90 - UNSPECIFIED DEMENTIA WITHOUT BEHAVIORAL DISTURBANCE (3) Pancytopenia Code(s): D61.818 - OTHER PANCYTOPENIA (4) CHF (congestive heart failure) Code(s): I50.9 - HEART FAILURE, UNSPECIFIED Qualifiers: Congestive heart failure type: unspecified congestive heart failure type Congestive heart failure chronicity: chronic Qualified Code(s): I50.9 - Heart failure, unspecified (5) HTN (hypertension) Code(s): I10 - ESSENTIAL (PRIMARY) HYPERTENSION (6) Hypothyroidism Code(s): E03.9 - HYPOTHYROIDISM, UNSPECIFIED Aspiration pneumonia Code(s): J69.0 - PNEUMONITIS DUE TO INHALATION OF FOOD AND VOMIT lactic acidosis plan conitnue zosyn stable post trach stop abx on wednesday if patient does not have any fevers
--- NOTE | 2017-06-12 17:46 | PN ---
Progress Note (short form) - Note Progress Note: covering dr veliz chart reviewed pt examined problems 1. hyponatremia 2. pancytopenia 3. resp failure requiring intubation 4. CHF 5. hematuria 6. HTN 7. UTI 8. dementia 9. volume overload 10. hypothyroidism 11. seizure 12. PNA Active Medications Amino Acids (Prosource No Carb Liquid Pkt) 30 ml PO BID@0800,1730 [facility] Last Admin: 06/12/17 16:33 Dose: 30 ml Atorvastatin Calcium (Lipitor -) 20 mg PO HS [facility] Last Admin: 06/11/17 21:28 Dose: 20 mg Chlorhexidine Gluconate (Peridex -) 15 ml MM BID [facility] Last Admin: 06/12/17 11:00 Dose: 15 ml Diltiazem HCl (Cardizem -) 30 mg PEG TID [facility] Last Admin: 06/12/17 13:54 Dose: 30 mg Piperacillin Sod/Tazobactam (Sod 3.375 gm/ Dextrose) 50 mls @ 100 mls/hr IVPB Q8H-IV JOCELYNE PRN Reason: Protocol Last Admin: 06/12/17 11:00 Dose: 100 mls/hr Levothyroxine Sodium (Synthroid -) 100 mcg PEG DAILY@0700 [facility] Last Admin: 06/12/17 06:28 Dose: 100 mcg Midazolam HCl (Versed -) 2 mg IVPUSH Q6H PRN PRN Reason: AGITATION Morphine Sulfate (Morphine Sulfate) 2 mg IVPUSH Q6H PRN PRN Reason: PAIN Nystatin (Mycostatin Cream -) 1 applic TP BID [facility] Last Admin: 06/12/17 11:00 Dose: 1 applic Pantoprazole Sodium (Protonix Packets For Oral Suspension -) 40 mg PEG DAILY [facility] Last Admin: 06/12/17 11:00 Dose: 40 mg Last Vital Signs Temp Pulse Resp BP Pulse Ox 99.3 F 113 H 19 145/81 95 06/12/17 16:00 06/12/17 14:00 06/12/17 14:00 06/12/17 14:00 06/12/17 08:28 CBC, BMP 06/12/17 09:20 06/12/17 06:00 Hyponatremia improved renal function stable Plan - cont vent support - cont tube feeds - evaluate volume status daily
[2017-06-12] MEDS: ATORVASTATIN CA 20 MG TABLET (FP) PO SCH (21:49)
[2017-06-13] MEDS: PIPERACILLIN/TAZOB 3.375 GM 3.375 GM in DEXTROSE 5%-WATER - 50 ML IVPB SCH ×3 (01:51→18:07)
[2017-06-13] MEDS: dilTIAZem HCL 30 MG TABLET (FP) PEG SCH ×3 (06:00→22:11)
[2017-06-13] MEDS: LEVOTHYROXINE NA 100 MCG TABLET (FP) PEG SCH (06:00)
[2017-06-13] MEDS ORDERED: PT OWN MED DRAWER 7, Y5N ONE ×3 (07:47→18:04)
[2017-06-13] MEDS: AMINO ACIDS/PROTEIN HYDROLYS 30 ML LIQUID.PKT PO SCH ×2 (08:23→18:08)
--- NOTE | 2017-06-13 09:34 | PN ---
Progress Note, Physician - Current Medication List Current Medications: Active Medications Amino Acids (Prosource No Carb Liquid Pkt) 30 ml PO BID@0800,1730 [facility] Last Admin: 06/13/17 08:23 Dose: 30 ml Atorvastatin Calcium (Lipitor -) 20 mg PO HS [facility] Last Admin: 06/12/17 21:49 Dose: 20 mg Chlorhexidine Gluconate (Peridex -) 15 ml MM BID [facility] Last Admin: 06/12/17 21:51 Dose: 15 ml Diltiazem HCl (Cardizem -) 30 mg PEG TID [facility] Last Admin: 06/13/17 06:00 Dose: 30 mg Piperacillin Sod/Tazobactam (Sod 3.375 gm/ Dextrose) 50 mls @ 100 mls/hr IVPB Q8H-IV JOCELYNE PRN Reason: Protocol Last Admin: 06/13/17 01:51 Dose: 100 mls/hr Levothyroxine Sodium (Synthroid -) 100 mcg PEG DAILY@0700 [facility] Last Admin: 06/13/17 06:00 Dose: 100 mcg Midazolam HCl (Versed -) 2 mg IVPUSH Q6H PRN PRN Reason: AGITATION Morphine Sulfate (Morphine Sulfate) 2 mg IVPUSH Q6H PRN PRN Reason: PAIN Nystatin (Mycostatin Cream -) 1 applic TP BID [facility] Last Admin: 06/12/17 21:49 Dose: 1 applic Pantoprazole Sodium (Protonix Packets For Oral Suspension -) 40 mg PEG DAILY [facility] Last Admin: 06/12/17 11:00 Dose: 40 mg - Objective Vital Signs: Vital Signs Temperature 99.2 F 06/13/17 08:34 Pulse Rate 107 H 06/13/17 08:34 Respiratory Rate 20 06/13/17 08:34 Blood Pressure 147/69 06/13/17 08:34 O2 Sat by Pulse Oximetry (%) 95 06/12/17 08:28 Eyes: Yes: WNL, Conjunctiva Clear, EOM Intact HENT: Yes: WNL, Atraumatic, Normocephalic Neck: Yes: WNL, Supple, Trachea Midline Cardiovascular: Yes: WNL, Regular Rate and Rhythm Respiratory: Yes: Diminished Gastrointestinal: Yes: WNL, Normal Bowel Sounds Genitourinary: Yes: WNL Musculoskeletal: Yes: WNL Extremities: Yes: WNL Edema: No Integumentary: Yes: WNL ...Motor Strength: WNL Psychiatric: Yes: WNL Labs: CBC, BMP 06/12/17 09:20 06/12/17 06:00 INR, PTT INR 1.10 (0.82-1.09) 06/09/17 06:00 Problem List - Problems (1) CHF (congestive heart failure) Code(s): I50.9 - HEART FAILURE, UNSPECIFIED Qualifiers: Congestive heart failure type: unspecified congestive heart failure type Congestive heart failure chronicity: chronic Qualified Code(s): I50.9 - Heart failure, unspecified (2) Smoking addiction Code(s): F17.200 - NICOTINE DEPENDENCE, UNSPECIFIED, UNCOMPLICATED (3) Smoking Code(s): F17.200 - NICOTINE DEPENDENCE, UNSPECIFIED, UNCOMPLICATED (4) Aortic stenosis Code(s): I35.0 - NONRHEUMATIC AORTIC (VALVE) STENOSIS (5) Osteoporosis Code(s): M81.0 - AGE-RELATED OSTEOPOROSIS W/O CURRENT PATHOLOGICAL FRACTURE (6) Hypothyroidism Code(s): E03.9 - HYPOTHYROIDISM, UNSPECIFIED Qualifiers: Hypothyroidism type: unspecified Qualified Code(s): E03.9 - Hypothyroidism , unspecified (7) HTN (hypertension) Code(s): I10 - ESSENTIAL (PRIMARY) HYPERTENSION (8) Macrocytosis Code(s): D75.89 - OTHER SPECIFIED DISEASES OF BLOOD AND BLOOD-FORMING ORGANS (9) Paroxysmal SVT (supraventricular tachycardia) Code(s): I47.1 - SUPRAVENTRICULAR TACHYCARDIA (10) Pancytopenia Code(s): D61.818 - OTHER PANCYTOPENIA (11) Altered mental status, unspecified Code(s): R41.82 - ALTERED MENTAL STATUS, UNSPECIFIED (12) UTI (urinary tract infection) Code(s): N39.0 - URINARY TRACT INFECTION, SITE NOT SPECIFIED (13) Dementia Code(s): F03.90 - UNSPECIFIED DEMENTIA WITHOUT BEHAVIORAL DISTURBANCE Qualifiers: Dementia type: unspecified type Dementia behavioral disturbance: without behavioral disturbance Qualified Code(s): F03.90 - Unspecified dementia without behavioral disturbance (14) Fever Code(s): R50.9 - FEVER, UNSPECIFIED (15) Aspiration pneumonia Code(s): J69.0 - PNEUMONITIS DUE TO INHALATION OF FOOD AND VOMIT Qualifiers: Aspiration pneumonia type: unspecified (16) Anemia Code(s): D64.9 - ANEMIA, UNSPECIFIED Qualifiers: Anemia type: other cause Other causes of anemia: acute posthemorrhagic Qualified Code(s): D62 - Acute posthemorrhagic anemia (17) Acute respiratory failure with hypoxia and hypercapnia Code(s): J96.01 - ACUTE RESPIRATORY FAILURE WITH HYPOXIA; J96.02 - ACUTE RESPIRATORY FAILURE WITH HYPERCAPNIA (18) Shock Code(s): R57.9 - SHOCK, UNSPECIFIED Assessment/Plan Assessment/Plan Recurrent Acute Hypoxic Respiratory Failure: PNA vs CHF? s/p tracheostomy ventilator dependent severe anemia CVA Szs UTI LV Systolic Dysfunction Hyponatremia Dementia Pancytopenia REC: -cont abx as per PMD, vent support -hold on further diuresis for now. hct improved after transfussion
[2017-06-13] MEDS: CHLORHEXIDINE GLUCONATE 0.12% 15ML CUP MM SCH ×2 (10:58→22:12)
[2017-06-13] MEDS: PANTOPRAZOLE SOD 40 MG SUSPENSION PACKET PEG SCH (10:58)
[2017-06-13] MEDS: NYSTATIN 100,000 UNIT/GM TOPICAL CREAM 15 GM TUBE TP SCH ×2 (10:59→22:11)
--- NOTE | 2017-06-13 11:18 | PN ---
Progress Note (short form) - Note Progress Note: PULMONARY Trach/vent/14/350/30/5 A/C/sp02 98% low grade temp/eyes open Gen: appears chronically ill/roper Heart: tachycardic, regular Lung: scattered rhonchi, wheezes Abd: soft, nontender, rectal tube,peg Ext: +UE edema labs/meds/notes/images reviewed A/P s/p Acute Respiratory Failure Volume overload Pneumonia UTI s/p Septic Shock Dementia - continue current vent settings - aspiration precautions - O2 to keep SpO2 >90% - DVT prophylaxis - prognosis guarded - wean as tolerated Toni BUNDY MD
--- NOTE | 2017-06-13 13:45 | PN ---
Progress Note, Physician Chief Complaint: Sedated on Ventilator, low H/h History of Present Illness: 82 yrs old admitted with frequent fall H/O HTN, CAD s/p stent, Hypothyroidism, admitted with fall prolonged hospitalization developed respiratory failure, intibated now s/p tache, PEG and rectal tube on Vent. multiple + Cutures. - Current Medication List Current Medications: Active Medications Amino Acids (Prosource No Carb Liquid Pkt) 30 ml PO BID@0800,1730 [facility] Last Admin: 06/13/17 08:23 Dose: 30 ml Atorvastatin Calcium (Lipitor -) 20 mg PO HS [facility] Last Admin: 06/12/17 21:49 Dose: 20 mg Chlorhexidine Gluconate (Peridex -) 15 ml MM BID [facility] Last Admin: 06/13/17 10:58 Dose: 15 ml Diltiazem HCl (Cardizem -) 30 mg PEG TID [facility] Last Admin: 06/13/17 06:00 Dose: 30 mg Piperacillin Sod/Tazobactam (Sod 3.375 gm/ Dextrose) 50 mls @ 100 mls/hr IVPB Q8H-IV JOCELYNE PRN Reason: Protocol Last Admin: 06/13/17 10:57 Dose: 100 mls/hr Levothyroxine Sodium (Synthroid -) 100 mcg PEG DAILY@0700 [facility] Last Admin: 06/13/17 06:00 Dose: 100 mcg Midazolam HCl (Versed -) 2 mg IVPUSH Q6H PRN PRN Reason: AGITATION Morphine Sulfate (Morphine Sulfate) 2 mg IVPUSH Q6H PRN PRN Reason: PAIN Nystatin (Mycostatin Cream -) 1 applic TP BID [facility] Last Admin: 06/13/17 10:59 Dose: 1 applic Pantoprazole Sodium (Protonix Packets For Oral Suspension -) 40 mg PEG DAILY [facility] Last Admin: 06/13/17 10:58 Dose: 40 mg - Objective Vital Signs: Vital Signs Temperature 99.2 F 06/13/17 08:34 Pulse Rate 102 H 06/13/17 09:37 Respiratory Rate 24 06/13/17 09:35 Blood Pressure 147/69 06/13/17 08:34 O2 Sat by Pulse Oximetry (%) 98 06/13/17 09:37 Elderly F Vent dependent HEENT: Trach at place, , Mm dry + anemia, PERRLA EOMI NECK: No JVD No Bruit CHEST: B/L Crepts CVs: S1S2 Irregular NILO at base ABD: PRG and rectal tube No distention, non tender Bs + EXT: + edema feet, no calf tenderness Pulses + BOX STAP[employer]ER: non verbal alert Labs: CBC, BMP 06/12/17 09:20 06/12/17 06:00 INR, PTT INR 1.10 (0.82-1.09) 06/09/17 06:00 Problem List - Problems (1) Hypothyroidism Code(s): E03.9 - HYPOTHYROIDISM, UNSPECIFIED Qualifiers: Hypothyroidism type: unspecified Qualified Code(s): E03.9 - Hypothyroidism , unspecified (2) Aspiration pneumonia Code(s): J69.0 - PNEUMONITIS DUE TO INHALATION OF FOOD AND VOMIT Qualifiers: Aspiration pneumonia type: unspecified (3) Anemia Code(s): D64.9 - ANEMIA, UNSPECIFIED Qualifiers: Anemia type: other cause Other causes of anemia: acute posthemorrhagic Qualified Code(s): D62 - Acute posthemorrhagic anemia (4) Acute respiratory failure with hypoxia and hypercapnia Code(s): J96.01 - ACUTE RESPIRATORY FAILURE WITH HYPOXIA; J96.02 - ACUTE RESPIRATORY FAILURE WITH HYPERCAPNIA
--- NOTE | 2017-06-13 19:35 | PN ---
Progress Note (short form) - Note Progress Note: covering dr veliz chart reviewed pt examined problems 1. hyponatremia 2. pancytopenia 3. resp failure requiring intubation 4. CHF 5. hematuria 6. HTN 7. UTI 8. dementia 9. volume overload 10. hypothyroidism 11. seizure 12. PNA Current Medications Amino Acids (Prosource No Carb Liquid Pkt) 30 ml PO BID@0800,1730 [facility] Last Admin: 06/13/17 18:08 Dose: 30 ml Atorvastatin Calcium (Lipitor -) 20 mg PO HS [facility] Last Admin: 06/12/17 21:49 Dose: 20 mg Chlorhexidine Gluconate (Peridex -) 15 ml MM BID [facility] Last Admin: 06/13/17 10:58 Dose: 15 ml Diltiazem HCl (Cardizem -) 30 mg PEG TID [facility] Last Admin: 06/13/17 14:35 Dose: 30 mg Piperacillin Sod/Tazobactam (Sod 3.375 gm/ Dextrose) 50 mls @ 100 mls/hr IVPB Q8H-IV JOCELYNE PRN Reason: Protocol Last Admin: 06/13/17 18:07 Dose: 100 mls/hr Levothyroxine Sodium (Synthroid -) 100 mcg PEG DAILY@0700 [facility] Last Admin: 06/13/17 06:00 Dose: 100 mcg Nystatin (Mycostatin Cream -) 1 applic TP BID [facility] Last Admin: 06/13/17 10:59 Dose: 1 applic Pantoprazole Sodium (Protonix Packets For Oral Suspension -) 40 mg PEG DAILY [facility] Last Admin: 06/13/17 10:58 Dose: 40 mg Last Vital Signs Temp Pulse Resp BP Pulse Ox 98.7 F 106 H 20 140/74 98 06/13/17 14:41 06/13/17 14:41 06/13/17 18:07 06/13/17 14:41 06/13/17 09:37 CBC, BMP 06/12/17 09:20 06/12/17 06:00 Hyponatremia improved renal function stable Plan - cont vent support - cont tube feeds - evaluate volume status daily
[2017-06-13] MEDS: ATORVASTATIN CA 20 MG TABLET (FP) PO SCH (22:11)
[2017-06-14] MEDS: PIPERACILLIN/TAZOB 3.375 GM 3.375 GM in DEXTROSE 5%-WATER - 50 ML IVPB SCH ×2 (01:11→11:29)
[2017-06-14] MEDS: LEVOTHYROXINE NA 100 MCG TABLET (FP) PEG SCH (06:06)
[2017-06-14] MEDS: dilTIAZem HCL 30 MG TABLET (FP) PEG SCH ×2 (06:06→14:52)
[2017-06-14 08:37] LABS: ANION GAP 10 (8-16); CO2 26 mmol/L (21-32); CREATININE 0.5 mg/dL (0.55-1.02); GLUCOSE,RANDOM 129 mg/dL (74-106)
[2017-06-14 08:58] LABS: BASOPHIL 0.5 % (0-2.0); EOSINOPHIL 2.2 % (0-4.5); MCH 32.8 pg (25.7-33.7); MCHC 33.9 g/dl (32.0-36.0); MEAN CELL VOLUME 96.7 fl (80-96); NEUTROPHILS 72.6 % (42.8-82.8); PLATELET COUNT 81 K/MM3 (134-434); RDW 16.2 % (11.6-15.6)
[2017-06-14] MEDS ORDERED: PT OWN MED DRAWER 7, Y5N ONE (10:44)
[2017-06-14] MEDS: NYSTATIN 100,000 UNIT/GM TOPICAL CREAM 15 GM TUBE TP SCH (11:29)
[2017-06-14] MEDS: CHLORHEXIDINE GLUCONATE 0.12% 15ML CUP MM SCH (11:30)
[2017-06-14] MEDS: AMINO ACIDS/PROTEIN HYDROLYS 30 ML LIQUID.PKT PO SCH (11:30)
[2017-06-14] MEDS: PANTOPRAZOLE SOD 40 MG SUSPENSION PACKET PEG SCH (11:30)
[2017-06-14] MEDS ORDERED: POTASSIUM CHLORIDE ORAL LIQUID 20 MEQ/15 ML PEG ONE (12:03)
--- NOTE | 2017-06-14 12:07 | DS ---
Physical Examination Vital Signs: Vital Signs Temperature 37.4 C 06/14/17 06:00 Pulse Rate 102 H 06/14/17 09:30 Respiratory Rate 22 06/14/17 09:30 Blood Pressure 146/85 06/14/17 06:00 O2 Sat by Pulse Oximetry (%) 97 06/14/17 09:30 Constitutional: Yes: No Distress, Calm Cardiovascular: Yes: Regular Rate and Rhythm. No: Gallop, Murmur, Rub Respiratory: Yes: Regular, Mechanically Ventilated, Rhonchi. No: CTA Bilaterally, Rales, Tachypnea, Wheezes Gastrointestinal: Yes: Normal Bowel Sounds, Soft. No: Distention, Tenderness Extremities: Yes: WNL Edema: No Labs: CBC, BMP 06/14/17 08:25 06/14/17 06:42 Discharge Summary Reason For Visit: PANCYTOPENIA / ALTERED MENTAL STATUS Current Active Problems Acute on chronic systolic (congestive) heart failure (Acute) Acute respiratory failure (Acute) Acute respiratory failure with hypoxia and hypercapnia (Acute) Altered mental status, unspecified (Acute) Anemia (Acute) Aspiration pneumonia (Acute) CVA (cerebral vascular accident) (Acute) Dementia (Acute) Fever (Acute) Hypokalemia (Acute) Hypomagnesemia (Acute) Hyponatremia (Acute) Hypophosphatemia (Acute) Pancytopenia (Acute) SIRS due to infectious process without acute organ dysfunction (Acute) Sepsis (Acute) Septic shock (Acute) Sinus tachycardia (Acute) Tachycardia (Acute) VRE (vancomycin-resistant Enterococci) infection (Acute) Hospital Course: (1) CHF (congestive heart failure) Code(s): I50.9 - HEART FAILURE, UNSPECIFIED Qualifiers: Congestive heart failure type: unspecified congestive heart failure type Congestive heart failure chronicity: chronic Qualified Code(s): I50.9 - Heart failure, unspecified (2) Hypothyroidism Code(s): E03.9 - HYPOTHYROIDISM, UNSPECIFIED Qualifiers: Hypothyroidism type: unspecified Qualified Code(s): E03.9 - Hypothyroidism , unspecified (3) HTN (hypertension) Code(s): I10 - ESSENTIAL (PRIMARY) HYPERTENSION (4) Pancytopenia Code(s): D61.818 - OTHER PANCYTOPENIA (5) UTI (urinary tract infection) Code(s): N39.0 - URINARY TRACT INFECTION, SITE NOT SPECIFIED (6) Dementia Code(s): F03.90 - UNSPECIFIED DEMENTIA WITHOUT BEHAVIORAL DISTURBANCE Qualifiers: Dementia type: unspecified type Dementia behavioral disturbance: without behavioral disturbance Qualified Code(s): F03.90 - Unspecified dementia without behavioral disturbance (7) Aspiration pneumonia Code(s): J69.0 - PNEUMONITIS DUE TO INHALATION OF FOOD AND VOMIT Qualifiers: Aspiration pneumonia type: unspecified (8) Anemia Code(s): D64.9 - ANEMIA, UNSPECIFIED Qualifiers: Anemia type: other cause Other causes of anemia: acute posthemorrhagic Qualified Code(s): D62 - Acute posthemorrhagic anemia (9) Acute respiratory failure Code(s): J96.00 - ACUTE RESPIRATORY FAILURE, UNSP W HYPOXIA OR HYPERCAPNIA (10) Septic shock Code(s): A41.9 - SEPSIS, UNSPECIFIED ORGANISM; R65.21 - SEVERE SEPSIS WITH SEPTIC SHOCK Ms Aguilar is an 82 year old female who presented to the hospital with UTI. She was fully treated, however she has history of progressive dementia and was found to be aspirating which caused sepsis. She was treated for this and was planned for PEG tube, however she had a possible GI bleed and PEG tube was held. She aspirated again and went into septic shock requiring intubation and treatment with antibiotics and pressor support. She also required blood transfusion as well. After this her course was complicated by repeated intubations and episodes of sepsis. Case was d/w son and he states her wishes were to do everything. She was able to have her PEG placed, and she was doing well on nasal cannula however had another episode of respiratory failure requiring intubation. As this was the third intubation and she was not able to be weaned, she had a trach placed and continued on mechanical ventilation. She is stable for discharge to SNF for further attempt to wean off of the vent. 42 minutes spent in preparation of this discharge Condition: Stable - Instructions Diet, Activity, Other Instructions: Jevity 1.5 at 45ml/hr with 20ml/hr water. Continue vent and trach care. Referrals: Cehko Mitchell MD [Primary Care Provider] - Hollis Gayle MD [Staff Physician] - Disposition: CARE HOME FACILITY - Home Medications Comprehensive Discharge Medication List: Ambulatory Orders Levothyroxine [Synthroid -] 100 mcg PO DAILY@0700 #30 tablet 01/03/14 Folic Acid 1 mg PO DAILY 04/01/17 Amino Acids/Protein Hydrolys [Prosource No Carb Liquid Pkt] 30 ml PO BID@0800, 1730 packet 06/14/17 Atorvastatin Ca [Lipitor] 20 mg PO HS tablet 06/14/17 Diltiazem [Cardizem -] 30 mg PEG TID tablet 06/14/17 Pantoprazole Suspension [Protonix Packets For Oral Suspension -] 40 mg PEG DAILY packet 06/14/17
--- NOTE | 2017-06-14 12:28 | PN ---
Progress Note, Physician - Current Medication List Current Medications: Active Medications Amino Acids (Prosource No Carb Liquid Pkt) 30 ml PO BID@0800,1730 [facility] Last Admin: 06/14/17 11:30 Dose: 30 ml Atorvastatin Calcium (Lipitor -) 20 mg PO HS [facility] Last Admin: 06/13/17 22:11 Dose: 20 mg Chlorhexidine Gluconate (Peridex -) 15 ml MM BID [facility] Last Admin: 06/14/17 11:30 Dose: 15 ml Diltiazem HCl (Cardizem -) 30 mg PEG TID [facility] Last Admin: 06/14/17 06:06 Dose: 30 mg Piperacillin Sod/Tazobactam (Sod 3.375 gm/ Dextrose) 50 mls @ 100 mls/hr IVPB Q8H-IV JOCELYNE PRN Reason: Protocol Last Admin: 06/14/17 11:29 Dose: 100 mls/hr Levothyroxine Sodium (Synthroid -) 100 mcg PEG DAILY@0700 [facility] Last Admin: 06/14/17 06:06 Dose: 100 mcg Nystatin (Mycostatin Cream -) 1 applic TP BID [facility] Last Admin: 06/14/17 11:29 Dose: 1 applic Pantoprazole Sodium (Protonix Packets For Oral Suspension -) 40 mg PEG DAILY [facility] Last Admin: 06/14/17 11:30 Dose: 40 mg - Objective Vital Signs: Vital Signs Temperature 99.4 F 06/14/17 06:00 Pulse Rate 102 H 06/14/17 09:30 Respiratory Rate 22 06/14/17 09:30 Blood Pressure 146/85 06/14/17 06:00 O2 Sat by Pulse Oximetry (%) 97 06/14/17 09:30 Eyes: Yes: WNL, Conjunctiva Clear, EOM Intact HENT: Yes: WNL, Atraumatic, Normocephalic Neck: Yes: WNL, Supple, Trachea Midline Cardiovascular: Yes: WNL, Regular Rate and Rhythm Respiratory: Yes: CTA Bilaterally, Mechanically Ventilated Gastrointestinal: Yes: WNL, Normal Bowel Sounds Genitourinary: Yes: WNL Musculoskeletal: Yes: WNL Extremities: Yes: WNL Edema: No Integumentary: Yes: WNL Neurological: Yes: WNL, Alert, Oriented ...Motor Strength: WNL Psychiatric: Yes: WNL Labs: CBC, BMP 06/14/17 08:25 06/14/17 06:42 INR, PTT INR 1.10 (0.82-1.09) 06/09/17 06:00 Problem List - Problems (1) CHF (congestive heart failure) Code(s): I50.9 - HEART FAILURE, UNSPECIFIED Qualifiers: Congestive heart failure type: unspecified congestive heart failure type Congestive heart failure chronicity: chronic Qualified Code(s): I50.9 - Heart failure, unspecified (2) Smoking addiction Code(s): F17.200 - NICOTINE DEPENDENCE, UNSPECIFIED, UNCOMPLICATED (3) Smoking Code(s): F17.200 - NICOTINE DEPENDENCE, UNSPECIFIED, UNCOMPLICATED (4) Aortic stenosis Code(s): I35.0 - NONRHEUMATIC AORTIC (VALVE) STENOSIS (5) Osteoporosis Code(s): M81.0 - AGE-RELATED OSTEOPOROSIS W/O CURRENT PATHOLOGICAL FRACTURE (6) Hypothyroidism Code(s): E03.9 - HYPOTHYROIDISM, UNSPECIFIED Qualifiers: Hypothyroidism type: unspecified Qualified Code(s): E03.9 - Hypothyroidism , unspecified (7) HTN (hypertension) Code(s): I10 - ESSENTIAL (PRIMARY) HYPERTENSION (8) Macrocytosis Code(s): D75.89 - OTHER SPECIFIED DISEASES OF BLOOD AND BLOOD-FORMING ORGANS (9) Paroxysmal SVT (supraventricular tachycardia) Code(s): I47.1 - SUPRAVENTRICULAR TACHYCARDIA (10) Pancytopenia Code(s): D61.818 - OTHER PANCYTOPENIA (11) Altered mental status, unspecified Code(s): R41.82 - ALTERED MENTAL STATUS, UNSPECIFIED (12) UTI (urinary tract infection) Code(s): N39.0 - URINARY TRACT INFECTION, SITE NOT SPECIFIED (13) Dementia Code(s): F03.90 - UNSPECIFIED DEMENTIA WITHOUT BEHAVIORAL DISTURBANCE Qualifiers: Dementia type: unspecified type Dementia behavioral disturbance: without behavioral disturbance Qualified Code(s): F03.90 - Unspecified dementia without behavioral disturbance (14) Fever Code(s): R50.9 - FEVER, UNSPECIFIED (15) Aspiration pneumonia Code(s): J69.0 - PNEUMONITIS DUE TO INHALATION OF FOOD AND VOMIT Qualifiers: Aspiration pneumonia type: unspecified (16) Anemia Code(s): D64.9 - ANEMIA, UNSPECIFIED Qualifiers: Anemia type: other cause Other causes of anemia: acute posthemorrhagic Qualified Code(s): D62 - Acute posthemorrhagic anemia (17) Acute respiratory failure with hypoxia and hypercapnia Code(s): J96.01 - ACUTE RESPIRATORY FAILURE WITH HYPOXIA; J96.02 - ACUTE RESPIRATORY FAILURE WITH HYPERCAPNIA (18) Shock Code(s): R57.9 - SHOCK, UNSPECIFIED Assessment/Plan Assessment/Plan Recurrent Acute Hypoxic Respiratory Failure: PNA vs CHF? s/p tracheostomy ventilator dependent severe anemia CVA Szs UTI LV Systolic Dysfunction Hyponatremia Dementia Pancytopenia REC: -cont abx as per PMD, vent support -hold on further diuresis for now. hct improved after transfussion
--- NOTE | 2017-06-14 14:24 | PN ---
Progress Note, Physician History of Present Illness: Pt seen and examined at bedside. She is awake. She remains on vent. - Current Medication List Current Medications: Active Medications Amino Acids (Prosource No Carb Liquid Pkt) 30 ml PO BID@0800,1730 [facility] Last Admin: 06/14/17 11:30 Dose: 30 ml Atorvastatin Calcium (Lipitor -) 20 mg PO HS [facility] Last Admin: 06/13/17 22:11 Dose: 20 mg Chlorhexidine Gluconate (Peridex -) 15 ml MM BID [facility] Last Admin: 06/14/17 11:30 Dose: 15 ml Diltiazem HCl (Cardizem -) 30 mg PEG TID [facility] Last Admin: 06/14/17 06:06 Dose: 30 mg Piperacillin Sod/Tazobactam (Sod 3.375 gm/ Dextrose) 50 mls @ 100 mls/hr IVPB Q8H-IV JOCELYNE PRN Reason: Protocol Last Admin: 06/14/17 11:29 Dose: 100 mls/hr Levothyroxine Sodium (Synthroid -) 100 mcg PEG DAILY@0700 [facility] Last Admin: 06/14/17 06:06 Dose: 100 mcg Nystatin (Mycostatin Cream -) 1 applic TP BID [facility] Last Admin: 06/14/17 11:29 Dose: 1 applic Pantoprazole Sodium (Protonix Packets For Oral Suspension -) 40 mg PEG DAILY [facility] Last Admin: 06/14/17 11:30 Dose: 40 mg - Objective Vital Signs: Vital Signs Temperature 99.4 F 06/14/17 06:00 Pulse Rate 102 H 06/14/17 09:30 Respiratory Rate 23 06/14/17 14:01 Blood Pressure 146/85 06/14/17 06:00 O2 Sat by Pulse Oximetry (%) 97 06/14/17 09:30 Constitutional: Yes: Calm Eyes: Yes: Conjunctiva Clear HENT: Yes: Other (trache) Cardiovascular: Yes: S1, S2 Respiratory: Yes: Mechanically Ventilated Gastrointestinal: Yes: Soft Genitourinary: Yes: Incontinence Musculoskeletal: Yes: Muscle Weakness Edema: LUE: Trace, RUE: Trace Labs: CBC, BMP 06/14/17 08:25 06/14/17 06:42 INR, PTT INR 1.10 (0.82-1.09) 06/09/17 06:00 Problem List - Problems (1) Hyponatremia Code(s): E87.1 - HYPO-OSMOLALITY AND HYPONATREMIA (2) Acute on chronic systolic (congestive) heart failure Code(s): I50.23 - ACUTE ON CHRONIC SYSTOLIC (CONGESTIVE) HEART FAILURE (3) Acute respiratory failure Code(s): J96.00 - ACUTE RESPIRATORY FAILURE, UNSP W HYPOXIA OR HYPERCAPNIA (4) CVA (cerebral vascular accident) Code(s): I63.9 - CEREBRAL INFARCTION, UNSPECIFIED (5) Pancytopenia Code(s): D61.818 - OTHER PANCYTOPENIA (6) CHF (congestive heart failure) Code(s): I50.9 - HEART FAILURE, UNSPECIFIED Qualifiers: Congestive heart failure type: unspecified congestive heart failure type Congestive heart failure chronicity: chronic Qualified Code(s): I50.9 - Heart failure, unspecified (7) HTN (hypertension) Code(s): I10 - ESSENTIAL (PRIMARY) HYPERTENSION Assessment/Plan Current Medications Generic Name Dose Route Start Last Admin Trade Name Freq PRN Reason Stop Dose Admin Amino Acids 30 ml 06/11/17 08:00 06/14/17 11:30 Prosource No Carb Liquid Pkt PO 30 ml BID@0800,1730 JOCELYNE Administration Atorvastatin Calcium 20 mg 06/10/17 22:00 06/13/17 22:11 Lipitor - PO 20 mg HS JOCELYNE Administration Chlorhexidine Gluconate 15 ml 06/10/17 22:00 06/14/17 11:30 Peridex - MM 15 ml BID JOCELYNE Administration Diltiazem HCl 30 mg 06/10/17 22:00 06/14/17 06:06 Cardizem - PEG 30 mg TID JOCELYNE Administration Piperacillin Sod/Tazobactam 50 mls @ 100 mls/hr 06/11/17 02:00 06/14/17 11:29 Sod 3.375 gm/ Dextrose IVPB 100 mls/hr Q8H-IV JOCELYNE Administration Protocol Levothyroxine Sodium 100 mcg 06/11/17 07:00 06/14/17 06:06 Synthroid - PEG 100 mcg DAILY@0700 JOCELYNE Administration Nystatin 1 applic 06/10/17 22:00 06/14/17 11:29 Mycostatin Cream - TP 1 applic BID JOCELYNE Administration Pantoprazole Sodium 40 mg 06/11/17 10:00 06/14/17 11:30 Protonix Packets For Oral Suspension - PEG 40 mg DAILY JOCELYNE Administration Impression 1. hyponatremia 2. pancytopenia 3. resp failure requiring intubation 4. CHF 5. hematuria 6. HTN 7. UTI 8. dementia 9. volume overload 10. hypothyroidism 11. seizure 12. PNA Plan - replace potassium - pt is tolerating tube feeds - will need to monitor lytes as outpt - cont vent support - cont tube feeds - will follow Dr Angeles
[2017-06-14 14:35] VITALS: BP 148/89; PULSE 112; TEMP 98.5
--- NOTE | 2017-06-14 16:11 | PN ---
Progress Note, Physician History of Present Illness: stable tachy no fevers secretions mild - Current Medication List Current Medications: Active Medications Amino Acids (Prosource No Carb Liquid Pkt) 30 ml PO BID@0800,1730 [facility] Last Admin: 06/14/17 11:30 Dose: 30 ml Atorvastatin Calcium (Lipitor -) 20 mg PO HS [facility] Last Admin: 06/13/17 22:11 Dose: 20 mg Chlorhexidine Gluconate (Peridex -) 15 ml MM BID [facility] Last Admin: 06/14/17 11:30 Dose: 15 ml Diltiazem HCl (Cardizem -) 30 mg PEG TID [facility] Last Admin: 06/14/17 14:52 Dose: 30 mg Levothyroxine Sodium (Synthroid -) 100 mcg PEG DAILY@0700 [facility] Last Admin: 06/14/17 06:06 Dose: 100 mcg Nystatin (Mycostatin Cream -) 1 applic TP BID [facility] Last Admin: 06/14/17 11:29 Dose: 1 applic Pantoprazole Sodium (Protonix Packets For Oral Suspension -) 40 mg PEG DAILY [facility] Last Admin: 06/14/17 11:30 Dose: 40 mg - Objective Vital Signs: Vital Signs Temperature 98.5 F 06/14/17 14:17 Pulse Rate 112 H 06/14/17 14:17 Respiratory Rate 20 06/14/17 14:17 Blood Pressure 148/89 06/14/17 14:17 O2 Sat by Pulse Oximetry (%) 97 06/14/17 09:30 Constitutional: Yes: No Distress, Calm Cardiovascular: Yes: Regular Rate and Rhythm Respiratory: Yes: Mechanically Ventilated, Other (trach) Gastrointestinal: Yes: Normal Bowel Sounds, Soft, Other (peg in place) Musculoskeletal: Yes: WNL Extremities: Yes: Other Neurological: Yes: Alert Psychiatric: Yes: Alert Labs: CBC, BMP 06/14/17 08:25 06/14/17 06:42 INR, PTT INR 1.10 (0.82-1.09) 06/09/17 06:00 Assessment/Plan Problem List - Problems (1) UTI (urinary tract infection) Code(s): N39.0 - URINARY TRACT INFECTION, SITE NOT SPECIFIED (2) Dementia Code(s): F03.90 - UNSPECIFIED DEMENTIA WITHOUT BEHAVIORAL DISTURBANCE (3) Pancytopenia Code(s): D61.818 - OTHER PANCYTOPENIA (4) CHF (congestive heart failure) Code(s): I50.9 - HEART FAILURE, UNSPECIFIED Qualifiers: Congestive heart failure type: unspecified congestive heart failure type Congestive heart failure chronicity: chronic Qualified Code(s): I50.9 - Heart failure, unspecified (5) HTN (hypertension) Code(s): I10 - ESSENTIAL (PRIMARY) HYPERTENSION (6) Hypothyroidism Code(s): E03.9 - HYPOTHYROIDISM, UNSPECIFIED Aspiration pneumonia Code(s): J69.0 - PNEUMONITIS DUE TO INHALATION OF FOOD AND VOMIT lactic acidosis plan will stop zosyn suctioning as needed rest as per primary team watch heart rate
== END 2017-06-14 16:46 | DRG 4 ==
LOC: JER 13:42 → JERBED 18:38 → J5S 20:10 → JICU 05-12 00:23 → J7W 05-21 19:34 → JICU 05-26 13:53 → J2W 05-31 18:36 → J4S 06-03 21:22 → JICU 06-05 21:37 → J2W 06-08 07:49 → JICU 06-08 07:50 → J5S 06-10 21:12
PROVIDERS: ADMIT Internal Medicine; ATTEND Internal Medicine
PROC: 30233H1 Transfusion of Nonautologous Whole Blood into Peripheral Vein, Percutaneous Approach (ICD-10-PCS; 2017-04-28)
PROC: 5A1955Z Respiratory Ventilation, Greater than 96 Consecutive Hours (ICD-10-PCS; 2017-05-12)
PROC: 0CHY7BZ Insertion of Airway into Mouth and Throat, Via Natural or Artificial Opening (ICD-10-PCS; 2017-05-12)
PROC: 05HM33Z Insertion of Infusion Device into Right Internal Jugular Vein, Percutaneous Approach (ICD-10-PCS; 2017-05-12)
PROC: 0DH63UZ Insertion of Feeding Device into Stomach, Percutaneous Approach (ICD-10-PCS; 2017-05-26)
PROC: 5A09357 Assistance with Respiratory Ventilation, Less than 24 Consecutive Hours, Continuous Positive Airway Pressure (ICD-10-PCS; 2017-05-26)
PROC: 0CHY7BZ Insertion of Airway into Mouth and Throat, Via Natural or Artificial Opening (ICD-10-PCS; 2017-05-26)
PROC: 5A1955Z Respiratory Ventilation, Greater than 96 Consecutive Hours (ICD-10-PCS; 2017-05-26)
PROC: 05HM33Z Insertion of Infusion Device into Right Internal Jugular Vein, Percutaneous Approach (ICD-10-PCS; 2017-05-26)
PROC: 0CHY7BZ Insertion of Airway into Mouth and Throat, Via Natural or Artificial Opening (ICD-10-PCS; 2017-06-06)
PROC: 5A1955Z Respiratory Ventilation, Greater than 96 Consecutive Hours (ICD-10-PCS; 2017-06-06)
PROC: 30233H1 Transfusion of Nonautologous Whole Blood into Peripheral Vein, Percutaneous Approach (ICD-10-PCS; 2017-06-07)
PROC: 0B918ZZ Drainage of Trachea, Via Natural or Artificial Opening Endoscopic (ICD-10-PCS; 2017-06-09)
PROC: 0B113F4 Bypass Trachea to Cutaneous with Tracheostomy Device, Percutaneous Approach (ICD-10-PCS; principal; 2017-06-09 14:00)
DX: F01.50 Vascular dementia, unspecified severity, without behavioral disturbance, psychotic disturbance, mood disturbance, and anxiety (principal); A41.9 Sepsis, unspecified organism; J96.21 Acute and chronic respiratory failure with hypoxia; J69.0 Pneumonitis due to inhalation of food and vomit; R65.21 Severe sepsis with septic shock; G82.50 Quadriplegia, unspecified; G92 Toxic encephalopathy; J96.02 Acute respiratory failure with hypercapnia; I50.23 Acute on chronic systolic (congestive) heart failure; I63.9 Cerebral infarction, unspecified; D61.818 Other pancytopenia; N39.0 Urinary tract infection, site not specified; N17.9 Acute kidney failure, unspecified; G91.9 Hydrocephalus, unspecified; E87.2 Acidosis; I47.1 Supraventricular tachycardia; R64 Cachexia; A04.72 Enterocolitis due to Clostridium difficile, not specified as recurrent; I24.8 Other forms of acute ischemic heart disease; E87.1 Hypo-osmolality and hyponatremia; K94.23 Gastrostomy malfunction; G40.89 Other seizures; Z99.11 Dependence on respirator [ventilator] status; T83.83XA Hemorrhage due to genitourinary prosthetic devices, implants and grafts, initial encounter; R62.7 Adult failure to thrive; Z91.81 History of falling; E11.9 Type 2 diabetes mellitus without complications; J43.9 Emphysema, unspecified; J44.9 Chronic obstructive pulmonary disease, unspecified; E03.9 Hypothyroidism, unspecified; Z95.5 Presence of coronary angioplasty implant and graft; I25.2 Old myocardial infarction; E78.5 Hyperlipidemia, unspecified; Z87.891 Personal history of nicotine dependence; D69.6 Thrombocytopenia, unspecified; I25.10 Atherosclerotic heart disease of native coronary artery without angina pectoris; D51.9 Vitamin B12 deficiency anemia, unspecified; I95.9 Hypotension, unspecified; R32 Unspecified urinary incontinence; Z68.26 Body mass index [BMI] 26.0-26.9, adult; E87.6 Hypokalemia; E83.39 Other disorders of phosphorus metabolism; E83.42 Hypomagnesemia; D53.9 Nutritional anemia, unspecified; I69.391 Dysphagia following cerebral infarction; R13.10 Dysphagia, unspecified; K76.0 Fatty (change of) liver, not elsewhere classified; E66.9 Obesity, unspecified; B95.2 Enterococcus as the cause of diseases classified elsewhere; B95.62 Methicillin resistant Staphylococcus aureus infection as the cause of diseases classified elsewhere; I36.1 Nonrheumatic tricuspid (valve) insufficiency; E87.70 Fluid overload, unspecified; Y83.3 Surgical operation with formation of external stoma as the cause of abnormal reaction of the patient, or of later complication, without mention of misadventure at the time of the procedure; B35.1 Tinea unguium; L60.2 Onychogryphosis; E83.51 Hypocalcemia; B96.5 Pseudomonas (aeruginosa) (mallei) (pseudomallei) as the cause of diseases classified elsewhere; B96.20 Unspecified Escherichia coli [E. coli] as the cause of diseases classified elsewhere; Y84.6 Urinary catheterization as the cause of abnormal reaction of the patient, or of later complication, without mention of misadventure at the time of the procedure
CPT/HCPCS: 31500; 36415; 36430; 36600; 49440; 70360-TC; 70450-TC; 70551-TC; 71010-TC; 74000-TC; 76000-TC; 76700-TC; 76775-TC; 76856-TC; 80048; 80053; 80061; 81003; 81015; 82272; 82436; 82533; 82550; 82607; 82728; 82746; 82784; 82803; 83540; 83550; 83605; 83721; 83735; 83880; 83930; 83935; 84100; 84133; 84155; 84165; 84300; 84439; 84443; 84466; 84481; 84484; 85025; 85027; 85610; 85730; 86334; 86850; 86900; 86901; 86922; 87040; 87045; 87046; 87070; 87077; 87086; 87177; 87186; 87205; 87209; 87324; 87449; 88300-TC; 90688; 93005; 93010; 93306-TC; 94002; 94640; 94660; 97116-GP; 97161-GP; 99283-25; C1894; G0480; J1644; P9034; P9038; P9058